=== PATIENT | female | born 1955 | race Caucasian/White ===

== ENCOUNTER 2016-08-02 13:20 | Inpatient (IN) | payer BC, OTHER ==
[~2016-08-02] VITALS: Ht 160 cm; Wt 66.0 kg
[~2016-08-02 13:20] MED LIST: ABL5 PO; BNC5 PO; FAMO20TA12 PO; HPRIS5M SQ; INSDGIPEN SC; LEVO125T72 PO; NRN300 PO; NVLGI/PEN SQ; NVLGIPEN SC; PXL20 PO; RMR15 PO
[2016-08-02] MEDS: INSULIN ASPART 100 UNITS/ML 3 ML PEN SC SCH ×3 (13:30→21:06)
[2016-08-02 13:32] VITALS: BP 134/87; PULSE 110; TEMP 37.3; BMI 25.8
[2016-08-02] MEDS ORDERED: PHARMACY GLYCEMIC MGMT CONSULT PRN (13:42)
[2016-08-02] MEDS ORDERED: SODIUM CHLORIDE 0.65% NA SOLN 45 ML (OCEAN) PRN (13:45)
[2016-08-02] MEDS ORDERED: BISMUTH SUBSALICYLATE PER ML OMNICELL CHARGE PO PRN (13:45)
[2016-08-02] MEDS ORDERED: ALUMINUM/MAGNESIUM SUSP 30 ML UDC PO PRN (13:45)
[2016-08-02] MEDS ORDERED: hydrOXYzine HCL 25 MG TAB PO PRN (13:45)
[2016-08-02] MEDS: GABAPENTIN 300 MG CAP PO SCH ×2 (14:00→21:20)
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
--- NOTE | 2016-08-02 14:21 | Pharmacy Progress Note ---
Glycemic: Assessment & Plan Date of Service Aug 02, 2016. Assessment & Plan Outpatient Anti-diabetic Regimen: * Lantus 45 units SQ Q HS * Novolog 10 units w/ meals * A1c = 8.7 % 07/31/16 (eAG ~203mg/dL) ASSESSMENT: 08/02/16: * Patient received 64 units of insulin yesterday and continues to be somewhat hyperglycemic. * Will increase insulin dose this morning and tighten correctional/prandial parameters. * Patient to be transferred back to [facility] today. * Will continue to follow patient after transfer. 08/01/16: * Patient's BSGs are beginning to improve today, after yesterday's insulin adjustments. Will continue to adjust cautiously until BSGs stable. * Patient's diet continues to be somewhat poor. Diet has been changed from Type 2 diabetic to a Regular diet. This is probably fine while intake is decreased, but may need to be re-addressed if patient begins to eat more and BSGs become difficult to manage. 07/31/16: * Patient's BSGs ranged 207-322 yesterday despite receiving 53 units of SQ insulin * Fasting BSG elevated this AM (FBS 250) w/ 20 units of Lantus on board. Yesterday's FBS was also > 200 on the same Lantus dose. She is currently receiving less than 1/2 her home Lantus dose. Will begin to titrate the Lantus dosage upward at this time, but will not give the full home dosage as her diet is poor and she has required lower doses on prior admissions. Will add a half dose parameter to the Lantus order should BSGs begin to fall. * Last evening the Novolog CF and CR were adjusted to allow for larger doses of each. This is a reasonable change given the BSG pattern observed yesterday ( BSGs jolie after 2 of 3 meals). PLAN FOR INPATIENT GLYCEMIC CONTROL: * Increase Lantus to 20 units SQ BID for now * Give 1/2 dose if BSG less than 110. * Tighten correction factor to 15 mg/dl/unit * Tighten carb ratio to 1 unit per 6 grams CHO consumed * Continue goal range of Low 100 mg/dL - High 140 mg/dL * Please note that the plan above was derived based on current level of insulin resistance and hospital stress. These recommendations are appropriate for inpatient admission only. Plan of care upon discharge will need to be reassessed to avoid potential outpatient hypo/hyperglycemia. Thank you.
[2016-08-02 19:22] VITALS: BP 117/73; PULSE 103
[2016-08-02] MEDS: HEPARIN SOD 5000 UNIT/0.5 ML CARP SQ SCH (21:02)
[2016-08-02] MEDS: FAMOTIDINE 20 MG TAB PO SCH (21:03)
[2016-08-02] MEDS: MIRTAZAPINE TAB 15 MG TAB PO SCH (21:04)
[2016-08-02] MEDS: INSULIN GLARGINE SOLOSTAR 100 UNITS/ML 3 ML PEN SC SCH (21:07)
[2016-08-03 06:36] VITALS: BP 155/95; PULSE 101; TEMP 37
[2016-08-03 07:47] LABS: CHOLESTEROL/HDL RATIO 4.1
[2016-08-03] MEDS: LEVOTHYROXINE 125 MCG TAB PO SCH (07:57)
[2016-08-03] MEDS: HEPARIN SOD 5000 UNIT/0.5 ML CARP SQ SCH ×2 (09:35→21:27)
[2016-08-03] MEDS: ARIPIprazole TAB 5 MG TAB PO SCH (09:37)
[2016-08-03] MEDS: GABAPENTIN 300 MG CAP PO SCH (09:37)
[2016-08-03] MEDS: OLMESARTAN MEDOXOMIL 5 MG TAB PO SCH (09:37)
[2016-08-03] MEDS: FAMOTIDINE 20 MG TAB PO SCH ×2 (09:37→21:31)
[2016-08-03] MEDS: PAROXETINE 20 MG TAB PO SCH (09:37)
[2016-08-03] MEDS: INSULIN ASPART 100 UNITS/ML 3 ML PEN SC SCH ×4 (09:45→21:30)
[2016-08-03] MEDS: INSULIN GLARGINE SOLOSTAR 100 UNITS/ML 3 ML PEN SC SCH (09:46)
[2016-08-03] MEDS: ACETAMINOPHEN 325 MG TAB PO PRN (10:28)
[2016-08-03 10:30] VITALS: BP 121/74; PULSE 108
--- NOTE | 2016-08-03 10:48 | Pharmacy Progress Note ---
Glycemic: Assessment & Plan Date of Service Aug 03, 2016. Assessment & Plan Outpatient Anti-diabetic Regimen: * Lantus 45 units SQ Q HS * Novolog 10 units w/ meals * A1c = 8.7 % 07/31/16 (eAG ~203mg/dL) ASSESSMENT: 08/03/16: * Patient received 68 units of insulin yesterday, with BSGs ranging from 143 - 243 mg/dL. * Lantus dose has been gradually titrated upward and is close to home dose at this point. Will work on getting back to once daily dosing now that patient's condition is more stable. No changes today since changes from yesterday have not been fully seen yet today. 08/02/16 * Patient received 64 units of insulin yesterday and continues to be somewhat hyperglycemic. * Will increase insulin dose this morning and tighten correctional/prandial parameters. * Patient to be transferred back to [facility] today. * Will continue to follow patient after transfer. 08/01/16 * Patient's BSGs are beginning to improve today, after yesterday's insulin adjustments. Will continue to adjust cautiously until BSGs stable. * Patient's diet continues to be somewhat poor. Diet has been changed from Type 2 diabetic to a Regular diet. This is probably fine while intake is decreased, but may need to be re-addressed if patient begins to eat more and BSGs become difficult to manage. 07/31/16 * Patient's BSGs ranged 207-322 yesterday despite receiving 53 units of SQ insulin * Fasting BSG elevated this AM (FBS 250) w/ 20 units of Lantus on board. Yesterday's FBS was also > 200 on the same Lantus dose. She is currently receiving less than 1/2 her home Lantus dose. Will begin to titrate the Lantus dosage upward at this time, but will not give the full home dosage as her diet is poor and she has required lower doses on prior admissions. Will add a half dose parameter to the Lantus order should BSGs begin to fall. * Last evening the Novolog CF and CR were adjusted to allow for larger doses of each. This is a reasonable change given the BSG pattern observed yesterday ( BSGs jolie after 2 of 3 meals). PLAN FOR INPATIENT GLYCEMIC CONTROL: * Lantus to 20 units SQ BID ---> transition to once daily HS dosing * Give Lantus 35 units SQ tonight, then start Lantus 45(?) units SQ HS tomorrow night * Patient has been hyperglycemic today, so anticipate that the additional basal today will be okay * Give 1/2 dose if BSG less than 110 * Novolog, accu-checks ACHS * Correction factor: 15 mg/dl/unit * Carb ratio: 1 unit per 6 grams CHO consumed * Goal range: Low 100 mg/dL - High 140 mg/dL * Please note that the plan above was derived based on current level of insulin resistance and hospital stress. These recommendations are appropriate for inpatient admission only. Plan of care upon discharge will need to be reassessed to avoid potential outpatient hypo/hyperglycemia. Thank you.
--- NOTE | 2016-08-03 10:53 | Psychiatric Progress Notes ---
Progress Note Date of Service Aug 03, 2016. Interval History 61 yo female readmitted to our unit voluntarily. She was initially admitted to the medical floor following an intentional overdose in a suicide attempt, moved to our unit, but moved back to medical with complaints of abd pain and hypotension. Her depression has been persistent since having surgery on her back in the summer, secondary to complications including foot drop, ongoing lower extremity pain and impaired mobility. Chief Complaint "I've failed.". Subjective Patient was seen & assessed interval progress reviewed with Treatment Team. The patient is very tearful today, feeling that she is a failure because she ended up on the mental health unit again. She continues to have severe pain in her left lower extremity, feeling that if this does not improve, then she has no reason to live. The impairment to her life is severe, she feels that she no longer has the support of her daughter and questions how long her boyfriend will remain supportive given her suicide attempt. In talking about her ongoing suicidal thoughts she says "Now I understand how people get to this point.". She is hoping that Dr. Cardoza will be able to help explain her pain and treatment moving forward, hoping there is something to be done to sander her pain. Staff report that she has required the assist of two to transfer, and has complained of dizziness at times limiting her ability to remain out of bed. She was assisted to the shower last evening and was able to bathe herself. Review of Systems Constitutional: + fatigue ENT: No dental problems, No hearing loss, No nasal symptoms, No problem reported, No sore throat, No tinnitus, No trouble swallowing, No unusual epistaxis Respiratory: No cough, No dyspnea at rest, No dyspnea on exertion, No hemoptysis, No problem reported, No shortness of breath, No sputum, No wheezing Cardiovascular: No PND, No chest pain, No claudication, No edema, No orthopnea , No palpitations, No problem reported Abdomen: + problem reported (poor appetite) Musculoskeletal: + problem reported (back and LLE pain and weakness) Neurologic: + problem reported (left foot drop) Psychiatric: + depression symptoms (with ongoing suicidal thoughts) Integumentary: No bleeding, No color change, No itch, No new/changing skin lesions, No problem reported, No rash Sleep Information Total Hours of Sleep: 7.00 Meal Information Percent of Breakfast Consumed: 50 Percent of Dinner Consumed: 30 Mental Status Exam During interview pt is: alert and oriented, cooperative Appearance: appropriately dressed, disheveled Eye contact is: fair Motor behavior is: no abnormal motor movements Speech: other (crying throughout the interview) Affect: tearful Mood is: depressed Thought process: goal directed Thought content: reality based without delusions Suicidal thought are: present Homicidal thoughts are: denied Hallucinations: denies auditory, denies visual Cognition: memory grossly intact, attention grossly intact Intelligence estimated to be: average Insight: impaired Judgement: impaired Impression Codi remains severely depressed with suicidal thinking. Pain and motor dysfunction remain central to her depression. Had and MRI of her back and consult with Dr. Cardoza while on the medical floor with no acute finding to account for her clinical presentation. Will discuss with neurology for their input re: possible EMG or other intervention. Today we will increase neurontin to 400 mg. TID to target neuropathic pain and continue other meds. Continued Inpatient Care The patient requires inpatient care due to the severity of her condition and the risk for another suicide attempt if discharged. Plan (1) Suicide attempt suicide checks for safety participate in groups and unit programming work on health coping skills and safety plan family meeting (2) Major depressive disorder, recurrent episode, severe with anxious distress - Retitrating Paxil (at 40mg since 07/31) and reintroducing Abilify (5mg daily) that seemed to work well as augmenting agent last hospitalization. Targets obsessive thinking and Abilify likely better from a glucose control standpoint. - She is very verbal re: her suicidal ideation and very aware of her needs re : medical assists, unable to tolerate roommate--[facility] given severity of SI and medical needs. - Encourage patient to be out of bed, showering and dressing daily, and attending groups. - Fasting labs ordered for tomorrow for monitoring on an atypical antipsychotic. (3) Intractable low back pain Pain management saw her 07/27, and stated she is is not a candidate for interventional procedures, deferred repeat lumbar spine imaging to Dr. Cardoza, and recommended initiation of gabapentin 300 mg at bedtime progressing to t.i.d. over the next 3 days in an attempt to diminish neuropathic pain complaints. Did not recommend utilization of opiate therapy in this patient as she has significant risk of opioid misuse/abuse with recent history of intentional overdose of meloxicam as well as her comorbid medical conditions. Consider evaluation for her candidacy for inpatient rehabilitative process upon discharge should be considered. 08/03 - Will consult with Dr. Cardoza and Dr. Briggs re: ongoing pain and weakness/ foot drop (4) Lower extremity weakness 08/02 - PT consult and treat, likely to require inpatient rehab - Dr. Cardoza of orthopedics saw her today, appreciate recommendations - consider neurology consult for b/l EMG with nerve conduction study. Lumbar spine MRI today showed postsurgical changes at the L4-5 and L5-S1 levels, soft tissue surrounding the thecal sac and left L5 nerve root at the L4-5 level, and mild L5 nerve root edema. While nonspecific, the soft tissue likely represents postsurgical epidural fibrosis. (5) Diabetes - Check glucose ACHS with insulin and sliding scale - Consult diabetic pharmacist for glucose control - Diabetic diet Discharge / Aftercare Planning Primary Care Physician: Name: Dr Kerr Psychiatrist: Name: Dr Rios Therapist: Name: Katiuska Heller Visit Code E&M Code: 97291 Inventory Assets Strengths: responsible for children, supportive family Risk Factors Assessment : Yes /single/: No Higher / Fall in social status: No Health problems: Yes Mental Health Diagnoses: Yes Substance use disorders: No Previous attempt: No Family history of suicide: No Previous psychiatric stay: Yes Hopelessness: Yes Protective Factors Assessment : Yes Responsible for young children: Yes Data Vital Signs Last 24 Hrs: Date Time Temp Pulse Resp B/P Pulse Ox O2 Delivery O2 Flow Rate FiO2 08/03/16 06:36 37.0 101 16 155/95 08/02/16 19:22 103 16 117/73 08/02/16 13:32 37.3 110 16 134/87 Meds Administered Last 24 Hrs: Meds Administered (Past 24Hrs) Medications (Trade) Dose Ordered Sig/Trevon Route Start Time Stop Time Status Last Admin Dose Admin Aripiprazole (Abilify Tab) 5 mg QAM PO 08/03/16 09:00 09/02/16 08:59 08/03/16 09:37 5 MG Famotidine (Pepcid Tab) 20 mg BID PO 08/02/16 22:00 09/01/16 21:59 08/03/16 09:37 20 MG Gabapentin (Neurontin Cap) 300 mg TID PO 08/02/16 14:00 09/01/16 13:59 08/03/16 09:37 300 MG Heparin Sodium (Porcine) (Heparin Sq 5000 Unit/0.5ml) 5,000 unit Q12 SQ 08/02/16 21:00 09/01/16 20:59 08/03/16 09:35 5,000 UNIT Insulin Aspart (novoLOG ASPART) ACHS SC 08/02/16 17:15 09/01/16 17:14 08/03/16 09:45 14 UNITS Insulin Glargine (Lantus Solostar Pen) 20 unit BID SC 08/02/16 22:00 09/01/16 21:59 08/03/16 09:46 20 UNIT Levothyroxine Sodium (Synthroid Tab) 125 mcg DAILYBB PO 08/03/16 08:00 09/02/16 07:59 08/03/16 07:57 125 MCG Mirtazapine (Remeron Tab) 30 mg HS PO 08/02/16 22:00 09/01/16 21:59 08/02/16 21:04 30 MG Olmesartan (Benicar) 5 mg DAILY PO 08/03/16 09:00 09/02/16 08:59 08/03/16 09:37 5 MG Paroxetine HCl (pAXil TAB) 40 mg QAM PO 08/03/16 09:00 09/02/16 08:59 08/03/16 09:37 40 MG Lab Results Last 24 Hrs: Last 24 Hours Test 08/02/16 15:51 08/02/16 20:18 08/03/16 07:00 08/03/16 08:00 Bedside Glucose 143 mg/dl 243 mg/dl 189 mg/dl Fasting Glucose 210 mg/dl Triglycerides Level 236 mg/dl Cholesterol Level 239 mg/dl HDL Cholesterol 58 mg/dl LDL Cholesterol, Calculated 134 mg/dl VLDL Cholesterol, Calculated 47 mg/dl Cholesterol/HDL Ratio 4.1
[2016-08-03] MEDS: MAGNESIUM HYDROXIDE SUSP 30 ML UDC PO PRN (12:53)
[2016-08-03] MEDS: GABAPENTIN 400 MG CAP PO SCH ×2 (14:01→21:30)
[2016-08-03] MEDS: hydrOXYzine HCL 25 MG TAB PO PRN (15:17)
[2016-08-03] MEDS ORDERED: INSULIN GLARGINE SOLOSTAR 100 UNITS/ML 3 ML PEN SQ SCH (21:00)
[2016-08-03] MEDS: NAPROXEN 250 MG TAB PO SCH (21:30)
[2016-08-03] MEDS: MIRTAZAPINE TAB 15 MG TAB PO SCH (21:31)
[2016-08-04 06:48] VITALS: BP_SYST 138; BP_SYST 139; BP_DIAS 83; BP_DIAS 85; PULSE 100; PULSE 99; TEMP 36.7
[2016-08-04] MEDS: LEVOTHYROXINE 125 MCG TAB PO SCH (07:40)
[2016-08-04] MEDS: OLMESARTAN MEDOXOMIL 5 MG TAB PO SCH (08:42)
[2016-08-04] MEDS: ARIPIprazole TAB 5 MG TAB PO SCH (08:42)
[2016-08-04] MEDS: GABAPENTIN 400 MG CAP PO SCH ×3 (08:42→20:52)
[2016-08-04] MEDS: NAPROXEN 250 MG TAB PO SCH ×2 (08:42→20:51)
[2016-08-04] MEDS: FAMOTIDINE 20 MG TAB PO SCH ×2 (08:43→20:52)
[2016-08-04] MEDS: PAROXETINE 20 MG TAB PO SCH (08:43)
[2016-08-04] MEDS: INSULIN ASPART 100 UNITS/ML 3 ML PEN SC SCH ×4 (09:34→20:56)
[2016-08-04] MEDS: HEPARIN SOD 5000 UNIT/0.5 ML CARP SQ SCH ×2 (09:35→20:47)
--- NOTE | 2016-08-04 10:17 | Pharmacy Progress Note ---
Glycemic: Assessment & Plan Date of Service Aug 04, 2016. Assessment & Plan Outpatient Anti-diabetic Regimen: * Lantus 45 units SQ Q HS * Novolog 10 units w/ meals * A1c = 8.7 % 07/31/16 (eAG ~203mg/dL) ASSESSMENT: 08/04/16: * Patient received 103 units of insulin yesterday, with BSGs ranging from 159 - 260 mg/dL. * Transition to once-daily HS dosing started last evening. Will continue working toward this today to make it easier for patient to resume home dosing upon discharge. * Patient appears to need additional prandial coverage, so will tighten Novolog parameters. 08/03/16 * Patient received 68 units of insulin yesterday, with BSGs ranging from 143 - 243 mg/dL. * Lantus dose has been gradually titrated upward and is close to home dose at this point. Will work on getting back to once daily dosing now that patient's condition is more stable. No changes today since changes from yesterday have not been fully seen yet today. 08/02/16 * Patient received 64 units of insulin yesterday and continues to be somewhat hyperglycemic. * Will increase insulin dose this morning and tighten correctional/prandial parameters. * Patient to be transferred back to [facility] today. 08/01/16 * Patient's BSGs are beginning to improve today, after yesterday's insulin adjustments. Will continue to adjust cautiously until BSGs stable. * Patient's diet continues to be somewhat poor. PLAN FOR INPATIENT GLYCEMIC CONTROL: * Lantus ---> transition to once daily HS dosing * Lantus 35 units SQ given last evening, then start Lantus 50 units SQ HS tonight * Novolog for correctional/prandial coverage, accu-checks ACHS * Correction factor: 15 mg/dl/unit * Carb ratio: 1 unit per 5 grams CHO consumed * Goal range: Low 100 mg/dL - High 140 mg/dL * Please note that the plan above was derived based on current level of insulin resistance and hospital stress. These recommendations are appropriate for inpatient admission only. Plan of care upon discharge will need to be reassessed to avoid potential outpatient hypo/hyperglycemia. Thank you.
--- NOTE | 2016-08-04 10:23 | Psychiatric Progress Notes ---
Progress Note Date of Service Aug 04, 2016. Interval History 61 yo female readmitted to our unit voluntarily. She was initially admitted to the medical floor following an intentional overdose in a suicide attempt, moved to our unit, but moved back to medical with complaints of abd pain and hypotension. Her depression has been persistent since having surgery on her back in the summer, secondary to complications including foot drop, ongoing lower extremity pain and impaired mobility. Chief Complaint "I still need naps.". Subjective Patient was seen & assessed interval progress reviewed with Treatment Team. The patient is sitting in a WC in the dayroom. I review with her my conversations with Dr. Cardoza (no surgical intervention, suggests neuro eval or pain management), and with Dr. Briggs (don't do EMG's as inpatients, rec strengthening with PT/rehab and willing to see as an OP). Also reviewed her meds, having come off of Paxil and Abilify abruptly after discharge leading to her acute decline (discontinuation syndrome) and progression of depression. The patient is tearful, saying that she knew something wasn't right, that she felt unwell, but felt that no one would listen to her. She is still in pain, feeling unable to walk independently leading to ongoing SI feeling "like I want to take a big bottle of pills". She does feel some hope that there is a plan in place and that she will be cared for until meds can help. She feels hopeless that she can feel better but willing to try. She is worried that staff will expect more of her than she feels capable of doing, but was reassured that we will meet in the middle somewhere. She denies aud/vis hallucinations. Review of Systems Constitutional: + fatigue, + problem reported (weakness, ambulatory dysfunction ) ENT: No dental problems, No hearing loss, No nasal symptoms, No problem reported, No sore throat, No tinnitus, No trouble swallowing, No unusual epistaxis Respiratory: No cough, No dyspnea at rest, No dyspnea on exertion, No hemoptysis, No problem reported, No shortness of breath, No sputum, No wheezing Cardiovascular: No PND, No chest pain, No claudication, No edema, No orthopnea , No palpitations, No problem reported Abdomen: No GI bleeding, No constipation, No diarrhea, No nausea, No pain, No problem reported, No vomiting Musculoskeletal: + problem reported (back and lower extremity pain/weakness, lt foot drop) Neurologic: No balance problems, No memory loss, No numbness/tingling, No paralysis, No problem reported, No vertigo, No weakness Psychiatric: + depression symptoms (with suicidality) Integumentary: + problem reported (dry skin) Sleep Information Total Hours of Sleep: 6.50 Meal Information Percent of Breakfast Consumed: 100 Percent of Dinner Consumed: 90 Mental Status Exam During interview pt is: alert and oriented, cooperative Appearance: appropriately dressed, disheveled Eye contact is: good Motor behavior is: no abnormal motor movements, other (using wheelchair when OOB) Speech: normal in rate, rhythm & volume (tearful), other (crying throughout the interview) Affect: depressed, tearful Mood is: depressed Thought process: goal directed Thought content: reality based without delusions Suicidal thought are: present, Plan: present (OD), Intent: denied Homicidal thoughts are: denied Hallucinations: denies auditory, denies visual Cognition: memory grossly intact, attention grossly intact Intelligence estimated to be: average Insight: impaired Judgement: impaired Impression Codi remains severely depressed with suicidal thinking. Pain and motor dysfunction remain central to her depression. Collaborated with Dr. Cardoza and Dr. Briggs to review her case. Dr. Cardoza agrees that her condition has worsened , but surgery indicated and suggests that a neuro or pain management consult may be appropriate. I reviewed the case with Dr. Briggs who agrees to see her if needed, but notes that EMG's are an OP procedure, and that in the absence of acute issues, the most gain is likely in PT/rehab for strengthening. I have reviewed this with the patient. PT has seen her and will see her daily, and have recommended we consider referral to rehab post discharge. She remains suicidal, but more hopeful now that she is back on meds. Paxil recently increased to 40 mg. and Abilify is at 5 mg. daily. She is still on heparin for DVT prophylaxis since she is not walking, but would like for her to progress toward walking with use of walker with PT assist. Will consider increase in paxil to 50 mg. over next few days. Continued Inpatient Care The patient requires inpatient care due to the severity of her condition and the risk for another suicide attempt if discharged. Plan (1) Suicide attempt suicide checks for safety participate in groups and unit programming work on health coping skills and safety plan family meeting (2) Major depressive disorder, recurrent episode, severe with anxious distress - Retitrating Paxil (at 40mg since 07/31) and reintroducing Abilify (5mg daily) that seemed to work well as augmenting agent last hospitalization. Targets obsessive thinking and Abilify likely better from a glucose control standpoint. - She is very verbal re: her suicidal ideation and very aware of her needs re : medical assists, unable to tolerate roommate--[facility] given severity of SI and medical needs. - Encourage patient to be out of bed, showering and dressing daily, and attending groups. - Fasting labs ordered for tomorrow for monitoring on an atypical antipsychotic. 07/25 -continue current meds. Consider increase in paxil to 50 mg. as needed (3) Intractable low back pain Pain management saw her 07/27, and stated she is is not a candidate for interventional procedures, deferred repeat lumbar spine imaging to Dr. Cardoza, and recommended initiation of gabapentin 300 mg at bedtime progressing to t.i.d. over the next 3 days in an attempt to diminish neuropathic pain complaints. Did not recommend utilization of opiate therapy in this patient as she has significant risk of opioid misuse/abuse with recent history of intentional overdose of meloxicam as well as her comorbid medical conditions. Consider evaluation for her candidacy for inpatient rehabilitative process upon discharge should be considered. 08/03 - Will consult with Dr. Cardoza and Dr. Briggs re: ongoing pain and weakness/ foot drop - Increase neurontin to 400 mg. TID 08/04 - Collaborated with Dr. Cardoza and Dr. Briggs. Will proceed with active PT and consider rehab post discharge. - No evidence for autonomic dysregulation or evidence of Guillam [place] - Encourage progressive increase to activity - PT will see daily (4) Lower extremity weakness 08/02 - PT consult and treat, likely to require inpatient rehab - Dr. Cardoza of orthopedics saw her today, appreciate recommendations - consider neurology consult for b/l EMG with nerve conduction study. Lumbar spine MRI today showed postsurgical changes at the L4-5 and L5-S1 levels, soft tissue surrounding the thecal sac and left L5 nerve root at the L4-5 level, and mild L5 nerve root edema. While nonspecific, the soft tissue likely represents postsurgical epidural fibrosis. (5) Diabetes - Check glucose ACHS with insulin and sliding scale - Consult diabetic pharmacist for glucose control - Diabetic diet Discharge / Aftercare Planning Primary Care Physician: Name: Dr Kerr Psychiatrist: Name: Dr Rios Therapist: Name: Katiuska Heller Visit Code E&M Code: 74457 Inventory Assets Strengths: supportive family, willingness to engage in treatment Risk Factors Assessment : Yes /single/: No Higher / Fall in social status: No Health problems: Yes Mental Health Diagnoses: Yes Substance use disorders: No Previous attempt: No Family history of suicide: No Previous psychiatric stay: Yes Hopelessness: Yes Protective Factors Assessment : Yes Responsible for young children: No Employed: No Stable relationships: Yes Supportive family: Yes Data Vital Signs Last 24 Hrs: Date Time Temp Pulse Resp B/P Pulse Ox O2 Delivery O2 Flow Rate FiO2 08/04/16 06:48 36.7 99 18 138/85 100 139/83 08/03/16 10:30 108 121/74 Meds Administered Last 24 Hrs: Meds Administered (Past 24Hrs) Medications (Trade) Dose Ordered Sig/Trevon Route Start Time Stop Time Status Last Admin Dose Admin Acetaminophen (Tylenol Tab) 650 mg Q4H PRN PO 08/02/16 13:45 09/01/16 13:44 08/03/16 10:28 650 MG Magnesium Hydroxide (Milk Of Magnesia Susp) 30 ml DAILY PRN PO 08/02/16 13:45 09/01/16 13:44 08/03/16 12:53 30 ML Hydroxyzine HCl (Vistaril Tab) 25 mg Q4H PRN PO 08/02/16 13:45 09/01/16 13:44 08/03/16 15:17 25 MG Aripiprazole (Abilify Tab) 5 mg QAM PO 08/03/16 09:00 09/02/16 08:59 08/04/16 08:42 5 MG Famotidine (Pepcid Tab) 20 mg BID PO 08/02/16 22:00 09/01/16 21:59 08/04/16 08:43 20 MG Gabapentin (Neurontin Cap) 300 mg TID PO 08/02/16 14:00 08/03/16 11:39 DC 08/03/16 09:37 300 MG Heparin Sodium (Porcine) (Heparin Sq 5000 Unit/0.5ml) 5,000 unit Q12 SQ 08/02/16 21:00 09/01/16 20:59 08/04/16 09:35 5,000 UNIT Insulin Aspart (novoLOG ASPART) ACHS SC 08/02/16 17:15 09/01/16 17:14 08/04/16 09:34 14 UNITS Insulin Glargine (Lantus Solostar Pen) 20 unit BID SC 08/02/16 22:00 08/03/16 13:20 DC 08/03/16 09:46 20 UNIT Levothyroxine Sodium (Synthroid Tab) 125 mcg DAILYBB PO 08/03/16 08:00 09/02/16 07:59 08/04/16 07:40 125 MCG Mirtazapine (Remeron Tab) 30 mg HS PO 08/02/16 22:00 09/01/16 21:59 08/03/16 21:31 30 MG Olmesartan (Benicar) 5 mg DAILY PO 08/03/16 09:00 09/02/16 08:59 08/04/16 08:42 5 MG Paroxetine HCl (pAXil TAB) 40 mg QAM PO 08/03/16 09:00 09/02/16 08:59 08/04/16 08:43 40 MG Gabapentin (Neurontin Cap) 400 mg TID PO 08/03/16 14:00 09/02/16 13:59 08/04/16 08:42 400 MG Naproxen (Naprosyn Tab) 250 mg BID PO 08/03/16 22:00 08/08/16 10:00 08/04/16 08:42 250 MG Insulin Glargine (Lantus Solostar Pen) 35 unit TODAY@2100 SQ 08/03/16 21:00 08/03/16 21:01 DC 08/03/16 21:28 35 UNIT Lab Results Last 24 Hrs: Last 24 Hours Test 08/03/16 12:24 08/03/16 15:59 08/03/16 20:10 Bedside Glucose 260 mg/dl 159 mg/dl 237 mg/dl
[2016-08-04] MEDS: MAGNESIUM HYDROXIDE SUSP 30 ML UDC PO PRN (16:51)
[2016-08-04 18:58] LABS: URINE APPEARANCE TURBID (CLEAR); URINE BILIRUBIN NEG (NEG); URINE COLOR DK YELLOW; URINE EPITHELIAL CELL AUTO >30 /lpf (0-5); URINE NITRITE NEG (NEG); URINE PH 5.5 (4.5-7.5); URINE SPECIFIC GRAVITY 1.039 (1.000-1.030); UROBILINOGEN NEG (NEG); ZZUR CULT IF INDIC CLEAN CATCH NO
[2016-08-04 19:03] LABS: MANUAL MICROSCOPIC REQUIRED? NO; REVIEW REQ? YES
[2016-08-04 19:14] LABS: URINE PATH CASTS 0-3 GRANULAR CASTS /lpf (0)
[2016-08-04] MEDS: MIRTAZAPINE TAB 15 MG TAB PO SCH (20:52)
[2016-08-04] MEDS: INSULIN GLARGINE SOLOSTAR 100 UNITS/ML 3 ML PEN SC SCH (20:54)
[2016-08-05] MEDS: ACETAMINOPHEN 325 MG TAB PO PRN (04:44)
[2016-08-05 06:54] VITALS: BP 119/79; PULSE 86; TEMP 36.4
[2016-08-05] MEDS: OLMESARTAN MEDOXOMIL 5 MG TAB PO SCH (09:41)
[2016-08-05] MEDS: LEVOTHYROXINE 125 MCG TAB PO SCH (09:41)
[2016-08-05] MEDS: ARIPIprazole TAB 5 MG TAB PO SCH (09:41)
[2016-08-05] MEDS: GABAPENTIN 400 MG CAP PO SCH ×3 (09:42→21:41)
[2016-08-05] MEDS: PAROXETINE 20 MG TAB PO SCH (09:42)
[2016-08-05] MEDS: NAPROXEN 250 MG TAB PO SCH ×2 (09:42→21:41)
[2016-08-05] MEDS: FAMOTIDINE 20 MG TAB PO SCH ×2 (09:43→21:42)
[2016-08-05] MEDS: INSULIN ASPART 100 UNITS/ML 3 ML PEN SC SCH ×4 (09:48→21:44)
[2016-08-05] MEDS: HEPARIN SOD 5000 UNIT/0.5 ML CARP SQ SCH ×2 (09:51→21:57)
--- NOTE | 2016-08-05 10:47 | Psychiatric Progress Notes ---
Progress Note Date of Service Aug 05, 2016. Interval History 61 yo female initially admitted to the medical floor on 07/26/16 following an intentional overdose in a suicide attempt, moved to our unit on 07/29/16 On 07/31/16 she was moved moved back to medical with complaints of abd pain and hypotension. She was readmitted to [facility] on 08/02/16 Her depression has been persistent since having surgery on her back in the summer, secondary to complications including foot drop, ongoing lower extremity pain and impaired mobility. Chief Complaint "I am so very depressed". Subjective Patient was seen & assessed interval progress reviewed with Nursing staff and review of her record. She is reported as struggling with her physical limitations and amotivation and hopelessness of depression. She was out of her room yesterday having a positive visit with her daughters. She is visited in her room today she is laying in her bed. She is alert and conversational but labile to tears. She notes she is afraid of not being able to walk again. SHe had one PT visit and is not certain she will be seen by PT over the holiday weekend. She states she is tired and is uncertain if it is her medications or her depression or both. SHe states she is eating and taking her medication and denies other obvious SE when given a common list of SE. She states she is depressed and hopeless. SHe ruminates about not getting better mentally or physically and not being accepted for rehab so that she could physically progress once discharged. She is difficult to re-direct as she continues to sob. When asked she states she was raised [employer] but does not actively practice as an adult "but I should." Encouraged her that she has the right to decide this for herself attempting to absolve her of some guilt. 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 SHe cannot contract for safety deying intention or plan today but stating "I could not even take pills right [to ]" and expressing her uncertainty how she would live, reasons for living or how to combat suicidal thinking. Review of Systems Other than psychiatric sx listed above and tiredness she denies physical concerns. She does have ongoing physical limitations. Sleep Information Total Hours of Sleep: 7.50 Meal Information Percent of Breakfast Consumed: 100 Percent of Dinner Consumed: 100 Mental Status Exam During interview pt is: alert and oriented, cooperative Appearance: disheveled (laying in bed, hair seems either wet or greesy, she is in hospital gown) Eye contact is: fair (she closes eyes while sobbing) Motor behavior is: no abnormal motor movements, other (ambulation no appreciated as she lays in bed) Speech: normal in rate, rhythm & volume (tearful), other (crying throughout the interview) Affect: depressed, tearful Mood is: depressed Thought process: goal directed Thought content: reality based without delusions (ruminations of guilt) Suicidal thought are: present, Plan: present (OD but doubting her own ability to be successful), Intent: denied Homicidal thoughts are: denied Hallucinations: denies auditory, denies visual Cognition: memory grossly intact, attention grossly intact Intelligence estimated to be: average Insight: impaired Judgement: impaired Impression Codi remains severely depressed with suicidal thinking. Pain and motor dysfunction remain central to her depression. Inpatient staff has collaborated with Dr. Cardoza and Dr. Briggs to review her case. Dr. Cardoza agrees that her condition has worsened, but surgery indicated and suggests that a neuro or pain management consult may be appropriate. INpatient staff has reviewed the case with Dr. Briggs who agrees to see her if needed, but notes that EMG's are an OP procedure, and that in the absence of acute issues, the most gain is likely in PT/rehab for strengthening. This has been reviewed by inpatient staff with the patient. PT has seen her and there is discrepant information as it seems she will be seen daily during business days and PT has recommended we consider referral to rehab post discharge. She remains suicidal, and per report from earlier hopeful now that she is back on meds. However this hopefulness was not present today 08/05/16. Paxil on 07/31/16 was increased 40 mg. and Abilify is at 5 mg. daily. She is still on heparin for DVT prophylaxis since she is not walking, but would like for her to progress toward walking with use of walker with PT assist. Will consider increase in paxil to 50 mg 08/05/16 Continued Inpatient Care The patient requires inpatient care due to the severity of her condition and the risk for another suicide attempt if discharged. Plan (1) Suicide attempt suicide checks for safety participate in groups and unit programming work on health coping skills and safety plan family meeting (2) Major depressive disorder, recurrent episode, severe with anxious distress 08/02/16 - Retitrating Paxil (at 40mg since 07/31) and reintroducing Abilify ( 5mg daily) that seemed to work well as augmenting agent last hospitalization. Targets obsessive thinking and Abilify likely better from a glucose control standpoint. - She is very verbal re: her suicidal ideation and very aware of her needs re : medical assists, unable to tolerate roommate--[facility] given severity of SI and medical needs. - Encourage patient to be out of bed, showering and dressing daily, and attending groups. - Fasting labs ordered 08/03/16 for monitoring on an atypical antipsychotic. 08/05/16 -increase paxil to 50mg, and continue abilify 5mg/d and continue plan as above - encouraged her to focus on 3 daily things that she can control: PT exercises BID, eating, and taking her medications - will request visit from at [facility] as per discussion with patient (3) Intractable low back pain Pain management saw her 07/27, and stated she is is not a candidate for interventional procedures, deferred repeat lumbar spine imaging to Dr. Cardoza, and recommended initiation of gabapentin 300 mg at bedtime progressing to t.i.d. over the next 3 days in an attempt to diminish neuropathic pain complaints. Did not recommend utilization of opiate therapy in this patient as she has significant risk of opioid misuse/abuse with recent history of intentional overdose of meloxicam as well as her comorbid medical conditions. Consider evaluation for her candidacy for inpatient rehabilitative process upon discharge should be considered. 08/03 - Will consult with Dr. Cardoza and Dr. Briggs re: ongoing pain and weakness/ foot drop - Increase neurontin to 400 mg. TID 08/04 and continuing - Collaborated with Dr. Cardoza and Dr. Briggs. Will proceed with active PT and consider rehab post discharge. - No evidence for autonomic dysregulation or evidence of Guillam [place] - Encourage progressive increase to activity - PT will see daily (?) (4) Lower extremity weakness 08/02 and continuing - PT consult and treat, likely to require inpatient rehab - Dr. Cardoza of orthopedics saw her today, appreciate recommendations - consider neurology consult for b/l EMG with nerve conduction study. Lumbar spine MRI today showed postsurgical changes at the L4-5 and L5-S1 levels, soft tissue surrounding the thecal sac and left L5 nerve root at the L4-5 level, and mild L5 nerve root edema. While nonspecific, the soft tissue likely represents postsurgical epidural fibrosis. - she remains on Sub Cut heparin (5) Diabetes - Check glucose ACHS with insulin and sliding scale - Consult diabetic pharmacist for glucose control - Diabetic diet Discharge / Aftercare Planning Primary Care Physician: Name: Dr Kerr Psychiatrist: Name: Dr Rios Date of Appointment: Aug 24, 2016 Time of Appointment: 10:00 Therapist: Name: Katiuska Heller Date of Appointment: Aug 22, 2016 Time of Appointment: 10:00 Visit Code E&M Code: 16463 Inventory Assets Strengths: supportive family, willingness to engage in treatment Risk Factors Assessment : Yes /single/: No Higher / Fall in social status: No Health problems: Yes Mental Health Diagnoses: Yes Substance use disorders: No Previous attempt: No Family history of suicide: No Previous psychiatric stay: Yes Hopelessness: Yes Protective Factors Assessment : Yes Responsible for young children: No Employed: No Stable relationships: Yes Supportive family: Yes Data Vital Signs Last 24 Hrs: Date Time Temp Pulse Resp B/P Pulse Ox O2 Delivery O2 Flow Rate FiO2 08/05/16 06:54 36.4 86 16 119/79 Meds Administered Last 24 Hrs: Meds Administered (Past 24Hrs) Medications (Trade) Dose Ordered Sig/Trevon Route Start Time Stop Time Status Last Admin Dose Admin Aripiprazole (Abilify Tab) 5 mg QAM PO 08/03/16 09:00 09/02/16 08:59 08/04/16 08:42 5 MG Olmesartan (Benicar) 5 mg DAILY PO 08/03/16 09:00 09/02/16 08:59 08/04/16 08:42 5 MG Paroxetine HCl (pAXil TAB) 40 mg QAM PO 08/03/16 09:00 09/02/16 08:59 08/04/16 08:43 40 MG Gabapentin (Neurontin Cap) 400 mg TID PO 08/03/16 14:00 09/02/16 13:59 08/04/16 20:52 400 MG Naproxen (Naprosyn Tab) 250 mg BID PO 08/03/16 22:00 08/08/16 10:00 08/04/16 20:51 250 MG Insulin Glargine (Lantus Solostar Pen) 35 unit TODAY@2100 SQ 08/03/16 21:00 08/03/16 21:01 DC 08/03/16 21:28 35 UNIT Insulin Glargine (Lantus Solostar Pen) 50 unit HS SC 08/04/16 22:00 09/03/16 21:59 08/04/16 20:54 50 UNIT Lab Results Last 24 Hrs: Last 24 Hours Test 08/04/16 12:11 08/04/16 16:42 08/04/16 20:36 08/05/16 07:45 Bedside Glucose 267 mg/dl 160 mg/dl 240 mg/dl 181 mg/dl
[2016-08-05] MEDS ORDERED: PAROXETINE 20 MG TAB PO ONE (12:00)
[2016-08-05 21:23] VITALS: BP 90/54; PULSE 96
[2016-08-05] MEDS: MIRTAZAPINE TAB 15 MG TAB PO SCH (21:42)
[2016-08-05] MEDS: INSULIN GLARGINE SOLOSTAR 100 UNITS/ML 3 ML PEN SC SCH (21:47)
[2016-08-05 22:19] VITALS: BP 105/70; PULSE 93
[2016-08-06] MEDS: ACETAMINOPHEN 325 MG TAB PO PRN (05:54)
[2016-08-06 06:53] VITALS: BP_SYST 120; BP_SYST 126; BP_DIAS 80; BP_DIAS 81; PULSE 89; PULSE 99; TEMP 36.4
[2016-08-06 07:39] VITALS: BP 117/79; PULSE 91; TEMP 37
[2016-08-06] MEDS ORDERED: PAROXETINE 20 MG TAB PO SCH (09:00)
[2016-08-06] MEDS: ARIPIprazole TAB 5 MG TAB PO SCH (09:02)
[2016-08-06] MEDS: OLMESARTAN MEDOXOMIL 5 MG TAB PO SCH (09:02)
[2016-08-06] MEDS: LEVOTHYROXINE 125 MCG TAB PO SCH (09:02)
[2016-08-06] MEDS: GABAPENTIN 400 MG CAP PO SCH ×3 (09:03→20:25)
[2016-08-06] MEDS: NAPROXEN 250 MG TAB PO SCH ×2 (09:03→20:25)
[2016-08-06] MEDS: FAMOTIDINE 20 MG TAB PO SCH ×2 (09:05→20:25)
[2016-08-06] MEDS: HEPARIN SOD 5000 UNIT/0.5 ML CARP SQ SCH ×2 (09:11→20:27)
[2016-08-06] MEDS: INSULIN ASPART 100 UNITS/ML 3 ML PEN SC SCH ×4 (09:16→21:27)
--- NOTE | 2016-08-06 09:18 | Pharmacy Progress Note ---
Glycemic: Assessment & Plan Date of Service Aug 06, 2016. Assessment & Plan Item Value Date Time Bedside Glucose 136 mg/dl H 08/06/16 0726 Bedside Glucose 131 mg/dl H 08/06/16 0221 Bedside Glucose 117 mg/dl H 08/05/16 2109 Bedside Glucose 215 mg/dl H 08/05/16 1610 Bedside Glucose 287 mg/dl H 08/05/16 1136 Bedside Glucose 181 mg/dl H 08/05/16 0745 08/03/16: The patient received 103 units of insulin. 08/04/16: The patient received 103 units of insulin. 08/05/16: The patient received 103 units of insulin. * Basal insulin: Lantus 50 units every HS * Correctional Insulin: Novolog Correction per scale ACHS Goal Range: Low 100 mg/dL - High 140 mg/dL Correction Factor: 15 mg/dL/unit * Prandial insulin: Per carb ratio of 1 unit per 5 grams CHO consumed No changes needed to inpatient regimen at this time. Pharmacy will continue to monitor patient daily and write orders per [facility] inpatient glycemic control protocol. Thanks. * Please note that the plan above was derived based on current level of insulin resistance and hospital stress. These recommendations are appropriate for inpatient admission only. Plan of care upon discharge will need to be reassessed to avoid potential outpatient hypo/hyperglycemia.
--- NOTE | 2016-08-06 09:27 | Psychiatric Progress Notes ---
Progress Note Date of Service Aug 06, 2016. Interval History 61 yo female initially admitted to the medical floor on 07/26/16 following an intentional overdose in a suicide attempt, moved to our unit on 07/29/16 On 07/31/16 she was moved moved back to medical with complaints of abd pain and hypotension. She was readmitted to [facility] on 08/02/16 Her depression has been persistent since having surgery on her back in the summer, secondary to complications including foot drop, ongoing lower extremity pain and impaired mobility. Chief Complaint "[]". Subjective Patient was seen & assessed interval progress reviewed with nursing staff and reviewed record. Patient slept 6.75h and she showered with assistance from staff, she slid herself from wheelchair to the shower chair and also from wheelchair to the bed and she seemed to have some brief janessa over that. She remains dysphoric and tearful. However yesterday she was able to ask for help and go to groups. was called today at patient's request. She listens but does not participate in group. She had low BP and dizziness this AM but vitals were WNL and Type II DM BS WNL at 136 (but is used to having high BS). Nursing is encouraging fluids. She is eating 100% of her food. Her BF visited but she fell asleep while he was here so the visit was limited. She was seen in her bed today. She states she is very dizzy and so has remained in bed. SHe is more alert and less tearful when in direct contact with this provider, but states she was weeping this AM and "I am just so sad" rating her mood as a 2/10 (10 best, 0 worst) compared to a 0/10 before she came to the hospital. She questions if the remeron works because she felt so bad through the fall while on it. She is concerned about the dose of paxil at 50mg, and feels more acutely dizzy today than she did yesterday. (felt dizzy prior to her Am dose) SHe states she did try to do her exercises yesterday "they are just so hard" She continues to feel hopeless about walking and that brings a level of despair about life. She denies SI, intent or plan to hurt herself in the hospital but is unable to say how she would remain safe if discharged as she continues to feel so poorly. Review of Systems dizzy, and noted urine remains very strong denying f/c/s, or dysuria, hesitancy or urgency, denies other sx of ROS other than mentioned above eating well Sleep Information Total Hours of Sleep: 6.75 Meal Information Percent of Breakfast Consumed: 100 Percent of Lunch Consumed: 100 Percent of Dinner Consumed: 75 Mental Status Exam During interview pt is: alert and oriented, cooperative Appearance: disheveled (laying in bed, but appears clean today) Eye contact is: good Motor behavior is: no abnormal motor movements Speech: normal in rate, rhythm & volume (tearful) Affect: depressed Mood is: depressed Thought process: goal directed Thought content: reality based without delusions (ruminations of guilt) Suicidal thought are: present, Plan: present (OD but doubting her own ability to be successful), Intent: denied Homicidal thoughts are: denied Hallucinations: denies auditory, denies visual Cognition: memory grossly intact, attention grossly intact Intelligence estimated to be: average Insight: impaired Judgement: impaired Impression Codi remains severely depressed with suicidal thinking. Pain and motor dysfunction remain central to her depression. Inpatient staff has collaborated with Dr. Cardoza and Dr. Briggs to review her case. Dr. Cardoza agrees that her condition has worsened, but surgery indicated and suggests that a neuro or pain management consult may be appropriate. INpatient staff has reviewed the case with Dr. Briggs who agrees to see her if needed, but notes that EMG's are an OP procedure, and that in the absence of acute issues, the most gain is likely in PT/rehab for strengthening. This has been reviewed by inpatient staff with the patient. PT has seen her and there is discrepant information as it seems she will be seen daily during business days and PT has recommended we consider referral to rehab post discharge. She remains suicidal, and per report from earlier hopeful now that she is back on meds. However this hopefulness was not present today 08/05/16. Paxil on 07/31/16 was increased 40 mg. and Abilify is at 5 mg. daily. She is still on heparin for DVT prophylaxis since she is not walking, but would like for her to progress toward walking with use of walker with PT assist. Continued Inpatient Care The patient requires inpatient care due to the severity of her condition and the risk for another suicide attempt if discharged. Plan (1) Suicide attempt suicide checks for safety participate in groups and unit programming work on health coping skills and safety plan family meeting (2) Major depressive disorder, recurrent episode, severe with anxious distress 08/02/16 - Retitrating Paxil (at 40mg since 07/31) and reintroducing Abilify ( 5mg daily) that seemed to work well as augmenting agent last hospitalization. Targets obsessive thinking and Abilify likely better from a glucose control standpoint. - She is very verbal re: her suicidal ideation and very aware of her needs re : medical assists, unable to tolerate roommate--[facility] given severity of SI and medical needs. - Encourage patient to be out of bed, showering and dressing daily, and attending groups. - Fasting labs ordered 08/03/16 for monitoring on an atypical antipsychotic. 08/05/16 -increase paxil to 50mg, and continue abilify 5mg/d and continue plan as above - encouraged her to focus on 3 daily things that she can control: PT exercises BID, eating, and taking her medications - will request visit from at [facility] as per discussion with patient 08/06/16 -She seems dizzy on increased paxil, which may also be amplification of her abilify or her remeron, will return paxil 40mg at patient's request and monitor - if dizziness persists consider reduction of remeron (limited efficacy as outpatient and goal to reduce polypharmacy) - continue abilify 5mg (amplified in vivo by paxil) encouraged her to get out of bed daily and attend groups to reduce amount of time ruminating in her mind (3) Intractable low back pain Pain management saw her 07/27, and stated she is is not a candidate for interventional procedures, deferred repeat lumbar spine imaging to Dr. Cardoza, and recommended initiation of gabapentin 300 mg at bedtime progressing to t.i.d. over the next 3 days in an attempt to diminish neuropathic pain complaints. Did not recommend utilization of opiate therapy in this patient as she has significant risk of opioid misuse/abuse with recent history of intentional overdose of meloxicam as well as her comorbid medical conditions. Consider evaluation for her candidacy for inpatient rehabilitative process upon discharge should be considered. 08/03 - Will consult with Dr. Cardoza and Dr. Briggs re: ongoing pain and weakness/ foot drop - Increase neurontin to 400 mg. TID 08/04 and continuing - Collaborated with Dr. Cardoza and Dr. Briggs. Will proceed with active PT and consider rehab post discharge. - No evidence for autonomic dysregulation or evidence of Guillam [place] - Encourage progressive increase to activity - PT will see daily (week?) (4) Lower extremity weakness 08/02 and continuing - PT consult and treat, likely to require inpatient rehab - Dr. Cardoza of orthopedics saw her today, appreciate recommendations - consider neurology consult for b/l EMG with nerve conduction study. Lumbar spine MRI today showed postsurgical changes at the L4-5 and L5-S1 levels, soft tissue surrounding the thecal sac and left L5 nerve root at the L4-5 level, and mild L5 nerve root edema. While nonspecific, the soft tissue likely represents postsurgical epidural fibrosis. - she remains on Sub Cut heparin (5) Diabetes - Check glucose ACHS with insulin and sliding scale - Consult diabetic pharmacist for glucose control - Diabetic diet Discharge / Aftercare Planning Primary Care Physician: Name: Dr Kerr Psychiatrist: Name: Dr Rios Date of Appointment: Aug 24, 2016 Time of Appointment: 10:00 Therapist: Name: Katiuska Heller Date of Appointment: Aug 22, 2016 Time of Appointment: 10:00 Visit Code E&M Code: 10080 Inventory Assets Strengths: supportive family, willingness to engage in treatment Risk Factors Assessment : Yes /single/: No Higher / Fall in social status: No Health problems: Yes Mental Health Diagnoses: Yes Substance use disorders: No Previous attempt: No Family history of suicide: No Previous psychiatric stay: Yes Hopelessness: Yes Protective Factors Assessment : Yes Responsible for young children: No Employed: No Stable relationships: Yes Supportive family: Yes Data Vital Signs Last 24 Hrs: Date Time Temp Pulse Resp B/P Pulse Ox O2 Delivery O2 Flow Rate FiO2 08/06/16 07:39 37.0 91 16 117/79 08/06/16 06:53 36.4 89 16 126/80 99 120/81 08/05/16 22:19 93 20 105/70 08/05/16 21:23 96 16 90/54 Meds Administered Last 24 Hrs: Meds Administered (Past 24Hrs) Medications (Trade) Dose Ordered Sig/Trevon Route Start Time Stop Time Status Last Admin Dose Admin Insulin Glargine (Lantus Solostar Pen) 50 unit HS SC 08/04/16 22:00 09/03/16 21:59 08/05/16 21:47 50 UNIT Paroxetine HCl (pAXil TAB) 10 mg 1200 ONCE PO 08/05/16 12:00 08/05/16 12:01 DC 08/05/16 13:22 10 MG Lab Results Last 24 Hrs: Last 24 Hours Test 08/05/16 11:36 08/05/16 16:10 08/05/16 21:09 08/06/16 02:21 Bedside Glucose 287 mg/dl 215 mg/dl 117 mg/dl 131 mg/dl Test 08/06/16 07:26 Bedside Glucose 136 mg/dl
[2016-08-06] MEDS: INSULIN GLARGINE SOLOSTAR 100 UNITS/ML 3 ML PEN SC SCH (20:21)
[2016-08-06] MEDS: MIRTAZAPINE TAB 15 MG TAB PO SCH (20:25)
[2016-08-07 05:35] VITALS: BMI 25.8
[2016-08-07 07:01] VITALS: BP 143/86; PULSE 91; TEMP 36.6
[2016-08-07] MEDS: LEVOTHYROXINE 125 MCG TAB PO SCH (07:59)
[2016-08-07] MEDS: INSULIN ASPART 100 UNITS/ML 3 ML PEN SC SCH ×4 (08:00→20:43)
[2016-08-07] MEDS: OLMESARTAN MEDOXOMIL 5 MG TAB PO SCH (09:17)
[2016-08-07] MEDS: ARIPIprazole TAB 5 MG TAB PO SCH (09:17)
[2016-08-07] MEDS: FAMOTIDINE 20 MG TAB PO SCH ×2 (09:18→20:38)
[2016-08-07] MEDS: NAPROXEN 250 MG TAB PO SCH ×2 (09:18→20:37)
[2016-08-07] MEDS: GABAPENTIN 400 MG CAP PO SCH ×3 (09:18→20:38)
[2016-08-07] MEDS: PAROXETINE 20 MG TAB PO SCH (09:18)
[2016-08-07] MEDS: HEPARIN SOD 5000 UNIT/0.5 ML CARP SQ SCH ×2 (09:25→20:43)
--- NOTE | 2016-08-07 11:16 | Psychiatric Progress Notes ---
Progress Note Date of Service Aug 07, 2016. Interval History 61 yo female initially admitted to the medical floor on 07/26/16 following an intentional overdose in a suicide attempt, moved to our unit on 07/29/16 On 07/31/16 she was moved moved back to medical with complaints of abd pain and hypotension. She was readmitted to [facility] on 08/02/16 Her depression has been persistent since having surgery on her back in the summer, secondary to complications including foot drop, ongoing lower extremity pain and impaired mobility. Chief Complaint "Oh, I don't know. ". Subjective Patient was seen & assessed interval progress reviewed with Treatment Team. The patient continues to feel depressed and worried about the need to return to rehab. She remembers that she had a "rough time there" and is worried that she will not be allowed to return. We reviewed the records together, but found no documentation that she would not be allowed back. She says that suicide "is still in my head", in terms of wishing she had succeeded, but saying that she has some renewed hope that things can be better. She feels like she needs to be more assertive on her own behalf with her care providers, as she feels that she wasn't being heard by them before. She says that she is now transferring from one surface to another with better ease, and would like to try to stand with her walker with help. She continues to report pain in her back and lower extremities, but no worse than previous days. She continues to feel tired, but is able to be out of bed for longer periods in her wheelchair. She questions whether the Remeron is effective since she has been on it for months "and I'm not happier". She reports that her appetite is good however. Review of Systems Constitutional: + fatigue, + problem reported (BLE weakness and pain, requiring WC when OOB) ENT: No dental problems, No hearing loss, No nasal symptoms, No problem reported, No sore throat, No tinnitus, No trouble swallowing, No unusual epistaxis Respiratory: No cough, No dyspnea at rest, No dyspnea on exertion, No hemoptysis, No problem reported, No shortness of breath, No sputum, No wheezing Cardiovascular: No PND, No chest pain, No claudication, No edema, No orthopnea , No palpitations, No problem reported Abdomen: No GI bleeding, No constipation, No diarrhea, No nausea, No pain, No problem reported, No vomiting Musculoskeletal: + problem reported (back and BLE pain) Neurologic: + problem reported (lower extremity wasting) Psychiatric: + anxiety, + depression symptoms Sleep Information Total Hours of Sleep: 8.25 Meal Information Percent of Breakfast Consumed: 90 Percent of Lunch Consumed: 90 Percent of Dinner Consumed: 90 Mental Status Exam During interview pt is: alert and oriented, cooperative Appearance: appropriately dressed, disheveled Eye contact is: good Motor behavior is: no abnormal motor movements, other (using WC) Speech: normal in rate, rhythm & volume (tearful) Affect: depressed, tearful Mood is: depressed Thought process: goal directed Thought content: reality based without delusions (ruminations of guilt) Suicidal thought are: present, Plan: denied, Intent: denied Homicidal thoughts are: denied Hallucinations: denies auditory, denies visual Cognition: memory grossly intact, attention grossly intact Intelligence estimated to be: average Insight: impaired Judgement: impaired Impression Codi remains depressed, tearful, with passive SI. Pain and impaired mobility are her focus, but is seeing some improvement as she is now able to transfer herself and would like to try to stand with a walker. Will ask PT to resume daily PT visits, as we prepare to refer to [facility]. Is back on Paxil and Abilify, but was c/o sedation on 50 mg. Paxil, so it was backed down to 40 mg. It will take additional time for meds to help her mood, but may be seeing some improvement to her hopelessness over the last several days. Will continue current meds and plan. Continued Inpatient Care The patient requires inpatient care due to the severity of her condition and the risk for another suicide attempt if discharged. Plan (1) Suicide attempt suicide checks for safety participate in groups and unit programming work on health coping skills and safety plan family meeting (2) Major depressive disorder, recurrent episode, severe with anxious distress 08/02/16 - Retitrating Paxil (at 40mg since 07/31) and reintroducing Abilify ( 5mg daily) that seemed to work well as augmenting agent last hospitalization. Targets obsessive thinking and Abilify likely better from a glucose control standpoint. - She is very verbal re: her suicidal ideation and very aware of her needs re : medical assists, unable to tolerate roommate--[facility] given severity of SI and medical needs. - Encourage patient to be out of bed, showering and dressing daily, and attending groups. - Fasting labs ordered 08/03/16 for monitoring on an atypical antipsychotic. 08/05/16 -increase paxil to 50mg, and continue abilify 5mg/d and continue plan as above - encouraged her to focus on 3 daily things that she can control: PT exercises BID, eating, and taking her medications - will request visit from at [facility] as per discussion with patient 08/06/16 -She seems dizzy on increased paxil, which may also be amplification of her abilify or her remeron, will return paxil 40mg at patient's request and monitor - if dizziness persists consider reduction of remeron (limited efficacy as outpatient and goal to reduce polypharmacy) - continue abilify 5mg (amplified in vivo by paxil) encouraged her to get out of bed daily and attend groups to reduce amount of time ruminating in her mind 08/07/16 - Continue current meds. Consider taper of Remeron is sedation, fatigue, hypotensive (3) Intractable low back pain Pain management saw her 07/27, and stated she is is not a candidate for interventional procedures, deferred repeat lumbar spine imaging to Dr. Cardoza, and recommended initiation of gabapentin 300 mg at bedtime progressing to t.i.d. over the next 3 days in an attempt to diminish neuropathic pain complaints. Did not recommend utilization of opiate therapy in this patient as she has significant risk of opioid misuse/abuse with recent history of intentional overdose of meloxicam as well as her comorbid medical conditions. Consider evaluation for her candidacy for inpatient rehabilitative process upon discharge should be considered. 08/03 - Will consult with Dr. Cardoza and Dr. Briggs re: ongoing pain and weakness/ foot drop - Increase neurontin to 400 mg. TID 08/04 and continuing - Collaborated with Dr. Cardoza and Dr. Briggs. Will proceed with active PT and consider rehab post discharge. - No evidence for autonomic dysregulation or evidence of Guillam [place] - Encourage progressive increase to activity - PT will see daily (week?) 08/07/16 - Ask PT to renew daily visits in preparation for referral to [facility] (4) Lower extremity weakness 08/02 and continuing - PT consult and treat, likely to require inpatient rehab - Dr. Cardoza of orthopedics saw her today, appreciate recommendations - consider neurology consult for b/l EMG with nerve conduction study. Lumbar spine MRI today showed postsurgical changes at the L4-5 and L5-S1 levels, soft tissue surrounding the thecal sac and left L5 nerve root at the L4-5 level, and mild L5 nerve root edema. While nonspecific, the soft tissue likely represents postsurgical epidural fibrosis. - she remains on Sub Cut heparin (5) Diabetes - Check glucose ACHS with insulin and sliding scale - Consult diabetic pharmacist for glucose control - Diabetic diet Discharge / Aftercare Planning Primary Care Physician: Name: Dr Kerr Psychiatrist: Name: Dr Rios Date of Appointment: Aug 24, 2016 Time of Appointment: 10:00 Therapist: Name: Katiuska Heller Date of Appointment: Aug 22, 2016 Time of Appointment: 10:00 Visit Code E&M Code: 06905 Inventory Assets Strengths: supportive family, willingness to engage in treatment Risk Factors Assessment : Yes /single/: No Higher / Fall in social status: No Health problems: Yes Mental Health Diagnoses: Yes Substance use disorders: No Previous attempt: No Family history of suicide: No Previous psychiatric stay: Yes Hopelessness: Yes Protective Factors Assessment : Yes Responsible for young children: No Employed: No Stable relationships: Yes Supportive family: Yes Data Vital Signs Last 24 Hrs: Date Time Temp Pulse Resp B/P Pulse Ox O2 Delivery O2 Flow Rate FiO2 08/07/16 07:01 36.6 91 14 143/86 Meds Administered Last 24 Hrs: Meds Administered (Past 24Hrs) Medications (Trade) Dose Ordered Sig/Trevon Route Start Time Stop Time Status Last Admin Dose Admin Paroxetine HCl (pAXil TAB) 50 mg QAM PO 08/06/16 09:00 08/06/16 13:24 DC 08/06/16 09:04 50 MG Paroxetine HCl (pAXil TAB) 10 mg 1200 ONCE PO 08/05/16 12:00 08/05/16 12:01 DC 08/05/16 13:22 10 MG Paroxetine HCl (pAXil TAB) 40 mg QAM PO 08/07/16 09:00 09/06/16 08:59 08/07/16 09:18 40 MG Insulin Glargine (Lantus Solostar Pen) 50 unit DAILY@1999 [place] 08/06/16 20:00 09/05/16 19:59 08/06/16 20:21 50 UNIT Lab Results Last 24 Hrs: Last 24 Hours Test 08/06/16 11:34 08/06/16 17:12 08/06/16 20:06 08/06/16 21:20 Bedside Glucose 226 mg/dl 180 mg/dl 411 mg/dl 344 mg/dl Test 08/07/16 08:02 Bedside Glucose 140 mg/dl
--- NOTE | 2016-08-07 14:25 | Pharmacy Progress Note ---
Glycemic: Assessment & Plan Date of Service Aug 07, 2016. Assessment & Plan * The patient is currently receiving consistently 103-104 units of insulin per day. * BSGs ranging 140 - 411 mg/dl over the past 24hrs. Uncertain why severely elevated outliers are occurring. * Basal vs prandial needs appear evenly distributed. Will tighten Novolog parameters as BSGs tend to rise through the day leading to elevated HS BSGs. Hyperglycemia then resolves overnight in the absence of food and the addition of correctional Novolog at bedtime. PLAN FOR INPATIENT GLYCEMIC CONTROL: * Basal insulin: Continue - Lantus 50 units qHS * Correctional Insulin: Novolog Correction per scale ACHS Goal Range: Low 100 mg/dL - High 140 mg/dL Tighten - Correction Factor: 12 mg/dL/unit * Prandial insulin: Tighten - Per carb ratio of 1 unit per 4 grams CHO consumed Pharmacy will continue to monitor patient daily and write orders per [facility] inpatient glycemic control protocol. Thanks. * Please note that the plan above was derived based on current level of insulin resistance and hospital stress. These recommendations are appropriate for inpatient admission only. Plan of care upon discharge will need to be reassessed to avoid potential outpatient hypo/hyperglycemia.
[2016-08-07] MEDS: INSULIN GLARGINE SOLOSTAR 100 UNITS/ML 3 ML PEN SC SCH (20:00)
[2016-08-07] MEDS: MIRTAZAPINE TAB 15 MG TAB PO SCH (20:39)
[2016-08-08 06:51] VITALS: BP 131/83; PULSE 98; TEMP 36.6
[2016-08-08] MEDS: OLMESARTAN MEDOXOMIL 5 MG TAB PO SCH (08:54)
[2016-08-08] MEDS: LEVOTHYROXINE 125 MCG TAB PO SCH (08:54)
[2016-08-08] MEDS: ARIPIprazole TAB 5 MG TAB PO SCH (08:54)
[2016-08-08] MEDS: PAROXETINE 20 MG TAB PO SCH (08:55)
[2016-08-08] MEDS: GABAPENTIN 400 MG CAP PO SCH ×3 (08:55→20:34)
[2016-08-08] MEDS: NAPROXEN 250 MG TAB PO SCH (08:55)
[2016-08-08] MEDS: FAMOTIDINE 20 MG TAB PO SCH ×2 (08:55→20:34)
[2016-08-08] MEDS: INSULIN ASPART 100 UNITS/ML 3 ML PEN SC SCH ×4 (09:14→20:29)
[2016-08-08] MEDS: HEPARIN SOD 5000 UNIT/0.5 ML CARP SQ SCH ×2 (09:15→20:39)
--- NOTE | 2016-08-08 09:27 | Psychiatric Progress Notes ---
Progress Note Date of Service Aug 08, 2016. Interval History 61 yo female initially admitted to the medical floor on 07/26/16 following an intentional overdose in a suicide attempt, moved to our unit on 07/29/16 On 07/31/16 she was moved moved back to medical with complaints of abd pain and hypotension. She was readmitted to [facility] on 08/02/16 Her depression has been persistent since having surgery on her back in the summer, secondary to complications including foot drop, ongoing lower extremity pain and impaired mobility. Chief Complaint "OK I guess.". Subjective Patient was seen & assessed interval progress reviewed with Treatment Team. The patient is sitting at the bedside eating breakfast. She is worried today about making the decision regarding rehab. She spoke with her daughter last evening, who said that she has concerns about [facility] since daughter perceives that things did not go smoothly there. She says that when Codi arrived, there was no one to show her to her room, or orient her to the facility , and that they were told they could give IV's, which they couldn't and had her meds incorrect. Codi would like for her daughter to be present for a meeting with the [facility] rep in order to ask questions and get clarification before she would agree to go there. Codi is also considering other facilities such as [facility]. She is reporting pain in her legs this AM, but is not tearful when talking about it. Yesterday she worked with the PT rep to use her legs to push herself in the wheel chair which is progress. She denies active SI today. She was able to shower with assist yesterday. Review of Systems Constitutional: + fatigue ENT: No dental problems, No hearing loss, No nasal symptoms, No problem reported, No sore throat, No tinnitus, No trouble swallowing, No unusual epistaxis Respiratory: No cough, No dyspnea at rest, No dyspnea on exertion, No hemoptysis, No problem reported, No shortness of breath, No sputum, No wheezing Abdomen: No GI bleeding, No constipation, No diarrhea, No nausea, No pain, No problem reported, No vomiting Musculoskeletal: + problem reported (back and BLE pain) Neurologic: + problem reported (BLE muscle wasting), + weakness Psychiatric: + depression symptoms Integumentary: No bleeding, No color change, No itch, No new/changing skin lesions, No problem reported, No rash Sleep Information Total Hours of Sleep: 7.75 Meal Information Percent of Breakfast Consumed: 90 Percent of Lunch Consumed: 100 Percent of Dinner Consumed: 100 Mental Status Exam During interview pt is: alert and oriented, cooperative Appearance: appropriately dressed, disheveled Eye contact is: good Motor behavior is: no abnormal motor movements, other (using WC) Speech: normal in rate, rhythm & volume (tearful) Affect: depressed Mood is: depressed Thought process: goal directed Thought content: reality based without delusions (ruminations of guilt) Suicidal thought are: present, Plan: denied, Intent: denied Homicidal thoughts are: denied Hallucinations: denies auditory, denies visual Cognition: memory grossly intact, attention grossly intact Intelligence estimated to be: average Insight: impaired Judgement: impaired Impression The patient is less tearful today as she considers her rehab options and was able to use her legs more with the assist of PT. She is more painful today as a result, but to be expected. She is currently on Paxil 40 mg. and Abilify 5 mg. to augment and may need several more weeks at this level to determine if effective. We will continue to work toward a rehab referral for post discharge to continue strengthening Continued Inpatient Care The patient requires inpatient care due to the severity of her condition and the risk for another suicide attempt if discharged. Plan (1) Suicide attempt suicide checks for safety participate in groups and unit programming work on health coping skills and safety plan family meeting (2) Major depressive disorder, recurrent episode, severe with anxious distress 08/02/16 - Retitrating Paxil (at 40mg since 07/31) and reintroducing Abilify ( 5mg daily) that seemed to work well as augmenting agent last hospitalization. Targets obsessive thinking and Abilify likely better from a glucose control standpoint. - She is very verbal re: her suicidal ideation and very aware of her needs re : medical assists, unable to tolerate roommate--[facility] given severity of SI and medical needs. - Encourage patient to be out of bed, showering and dressing daily, and attending groups. - Fasting labs ordered 08/03/16 for monitoring on an atypical antipsychotic. 08/05/16 -increase paxil to 50mg, and continue abilify 5mg/d and continue plan as above - encouraged her to focus on 3 daily things that she can control: PT exercises BID, eating, and taking her medications - will request visit from at [facility] as per discussion with patient 08/06/16 -She seems dizzy on increased paxil, which may also be amplification of her abilify or her remeron, will return paxil 40mg at patient's request and monitor - if dizziness persists consider reduction of remeron (limited efficacy as outpatient and goal to reduce polypharmacy) - continue abilify 5mg (amplified in vivo by paxil) encouraged her to get out of bed daily and attend groups to reduce amount of time ruminating in her mind 08/07/16 - Continue current meds. Consider taper of Remeron is sedation, fatigue, hypotensive (3) Intractable low back pain Pain management saw her 07/27, and stated she is is not a candidate for interventional procedures, deferred repeat lumbar spine imaging to Dr. Cardoza, and recommended initiation of gabapentin 300 mg at bedtime progressing to t.i.d. over the next 3 days in an attempt to diminish neuropathic pain complaints. Did not recommend utilization of opiate therapy in this patient as she has significant risk of opioid misuse/abuse with recent history of intentional overdose of meloxicam as well as her comorbid medical conditions. Consider evaluation for her candidacy for inpatient rehabilitative process upon discharge should be considered. 08/03 - Will consult with Dr. Cardoza and Dr. Briggs re: ongoing pain and weakness/ foot drop - Increase neurontin to 400 mg. TID 08/04 and continuing - Collaborated with Dr. Cardoza and Dr. Briggs. Will proceed with active PT and consider rehab post discharge. - No evidence for autonomic dysregulation or evidence of Guillam [place] - Encourage progressive increase to activity - PT will see daily (week?) 08/07/16 - Ask PT to renew daily visits in preparation for referral to [facility] (4) Lower extremity weakness 08/02 and continuing - PT consult and treat, likely to require inpatient rehab - Dr. Cardoza of orthopedics saw her today, appreciate recommendations - consider neurology consult for b/l EMG with nerve conduction study. Lumbar spine MRI today showed postsurgical changes at the L4-5 and L5-S1 levels, soft tissue surrounding the thecal sac and left L5 nerve root at the L4-5 level, and mild L5 nerve root edema. While nonspecific, the soft tissue likely represents postsurgical epidural fibrosis. - she remains on Sub Cut heparin (5) Diabetes - Check glucose ACHS with insulin and sliding scale - Consult diabetic pharmacist for glucose control - Diabetic diet Discharge / Aftercare Planning Primary Care Physician: Name: Dr Kerr Psychiatrist: Name: Dr Rios Date of Appointment: Aug 24, 2016 Time of Appointment: 10:00 Therapist: Name: Katiuska Heller Date of Appointment: Aug 22, 2016 Time of Appointment: 10:00 Visit Code E&M Code: 15625 Inventory Assets Strengths: supportive family, willingness to engage in treatment Risk Factors Assessment : Yes /single/: No Higher / Fall in social status: No Health problems: Yes Mental Health Diagnoses: Yes Substance use disorders: No Previous attempt: No Family history of suicide: No Previous psychiatric stay: Yes Hopelessness: Yes Protective Factors Assessment : Yes Responsible for young children: No Employed: No Stable relationships: Yes Supportive family: Yes Data Vital Signs Last 24 Hrs: Date Time Temp Pulse Resp B/P Pulse Ox O2 Delivery O2 Flow Rate FiO2 08/08/16 06:51 36.6 98 16 131/83 Meds Administered Last 24 Hrs: Meds Administered (Past 24Hrs) Medications (Trade) Dose Ordered Sig/Trevon Route Start Time Stop Time Status Last Admin Dose Admin Paroxetine HCl (pAXil TAB) 40 mg QAM PO 08/07/16 09:00 09/06/16 08:59 08/07/16 09:18 40 MG Insulin Glargine (Lantus Solostar Pen) 50 unit DAILY@1999 [place] 08/06/16 20:00 09/05/16 19:59 08/07/16 20:00 50 UNIT Lab Results Last 24 Hrs: Last 24 Hours Test 08/07/16 12:06 08/07/16 17:11 08/07/16 19:33 Bedside Glucose 275 mg/dl 183 mg/dl 228 mg/dl
--- NOTE | 2016-08-08 10:35 | Pharmacy Progress Note ---
Glycemic Control: Progress Nt Date of Service Aug 08, 2016. Scope Glycemic Pharmacist consulted by Dr Salazar on 07/30/16 for glycemic control and to write orders per [facility] inpatient glycemic control protocol. Objective Accuchecks BSG (last 24hrs): Test 08/07/16 12:06 08/07/16 17:11 08/07/16 19:33 08/08/16 07:00 Bedside Glucose 275 mg/dl (70-90) 183 mg/dl (70-90) 228 mg/dl (70-90) 86mg/dl HbA1c: Item Value Date Time Hemoglobin A1c 8.7 % H 07/31/16 0520 Recent Pertinent Medications Outpatient Anti-diabetic Regimen: * Lantus 45 units SQ HS * NovoLog 10 units SQ TID The patient is currently receiving: * Basal insulin: Lantus 50 units every 24 hours given at bedtime * Correctional Insulin: Novolog Correction per scale ACHS Goal Range: Low 100 mg/dL - High 140 mg/dL Correction Factor: 12 mg/dL/unit * Prandial insulin: Per carb ratio of 1 unit per 4 grams CHO consumed Risk Factors for Insulin Resistance: * Diet * Baseline poor control, elevated A1c Assessment & Plan ASSESSMENT: * 61yo T2DM female known to pharmacy from previous admissions/glycemic consults * Per previous admissions, patient had required significantly less insulin during admission as compared to outpatient dosing. However, this admission, insulin was initiated conservatively and titrated back upwards to outpatient dosing. * Patient has been receiving ~ 100 units of insulin per day with adequate control. * Patient does have some BSG fluctuations but suspect that this may be normal for patient based on A1c * Regimen is currently split 50%:50% between basal:prandial insulin which is the preferred split for inpatient use to prevent hypo when PO status changes. * AM fasting BSG slightly below goal range this morning at 86mg/dl. Will reduce Lantus dose slightly back to home dosing. * ADA & AACE recommend a goal blood sugar range 140-180 mg/dl for the majority of critically ill & non-critically ill patients. However, more stringent targets may be selected in individual cases. Will utilize more stringent target of 110-140mg/dl based on age and co-morbidities. PLAN FOR INPATIENT GLYCEMIC CONTROL: * DECREASE Basal insulin with LANTUS 45 units SQ HS * CONTINUE Correctional Insulin with NOVOLOG per scale ACHS or Q6hrs while NPO * Goal Range: Low 110 mg/dL - High 140 mg/dL * Correction Factor: 12 mg/dL/unit * Nutritional / Prandial insulin per carb ratio of 1 unit per 4 grams CHO consumed * Please note that the plan above was derived based on current level of insulin resistance and hospital stress. These recommendations are appropriate for inpatient admission only. Plan of care upon discharge will need to be reassessed to avoid potential outpatient hypo/hyperglycemia. Thank you.
[2016-08-08] MEDS: MAGNESIUM HYDROXIDE SUSP 30 ML UDC PO PRN (14:10)
[2016-08-08] MEDS: MIRTAZAPINE TAB 15 MG TAB PO SCH (20:34)
[2016-08-08] MEDS: INSULIN GLARGINE SOLOSTAR 100 UNITS/ML 3 ML PEN SC SCH (20:41)
[2016-08-09] MEDS: ACETAMINOPHEN 325 MG TAB PO PRN (05:48)
[2016-08-09 06:51] VITALS: BP 155/98; PULSE 86; TEMP 36.8
[2016-08-09] MEDS: LEVOTHYROXINE 125 MCG TAB PO SCH (07:43)
[2016-08-09] MEDS: INSULIN ASPART 100 UNITS/ML 3 ML PEN SC SCH ×4 (08:00→20:25)
[2016-08-09] MEDS: GABAPENTIN 400 MG CAP PO SCH ×3 (08:39→20:13)
[2016-08-09] MEDS: OLMESARTAN MEDOXOMIL 5 MG TAB PO SCH (08:39)
[2016-08-09] MEDS: PAROXETINE 20 MG TAB PO SCH (08:39)
[2016-08-09] MEDS: ARIPIprazole TAB 5 MG TAB PO SCH (08:39)
[2016-08-09] MEDS: FAMOTIDINE 20 MG TAB PO SCH ×2 (08:40→20:13)
--- NOTE | 2016-08-09 08:51 | Psychiatric Progress Notes ---
Progress Note Date of Service Aug 09, 2016. Interval History 61 yo female initially admitted to the medical floor on 07/26/16 following an intentional overdose in a suicide attempt, moved to our unit on 07/29/16 On 07/31/16 she was moved moved back to medical with complaints of abd pain and hypotension. She was readmitted to [facility] on 08/02/16 Her depression has been persistent since having surgery on her back in the summer, secondary to complications including foot drop, ongoing lower extremity pain and impaired mobility. Chief Complaint "Okay". Subjective Patient was seen & assessed interval progress reviewed with Treatment Team. Staff report she had a difficult day, was tearful and overwhelmed, and had difficulty making decisions about rehab. She is upset about her previous experience at [facility] and was considering other options for inpatient PT. She attended some groups but had poor participation. She remains severely depressed, with poor motivation, but denies SI. Today she initially says she is "okay," then starts crying and says she is worried and feels unable to make a decision. She is worried about not being able to get around her home, saying she can't walk or get up the stairs. When reminded that she'll be going to inpatient rehab to work on her strength and mobility, she says she feels unable to make a decision about that as well, and isn't sure where she wants to go. She is willing to have a meeting with her family and someone from [facility] so they can discuss concerns and hopefully that will help her to make a decision. She denies SI, but is struggling to function, saying she is in pain today and doesn't want to get up or do anything. Sleep was poor due to pain, but appetite is good and she ate all of her breakfast. Sleep Information Total Hours of Sleep: 8.25 Meal Information Percent of Breakfast Consumed: 100 Percent of Lunch Consumed: 100 Percent of Dinner Consumed: 75 Mental Status Exam During interview pt is: alert and oriented, cooperative Appearance: appropriately dressed, disheveled (tearful) Eye contact is: good Motor behavior is: no abnormal motor movements Speech: normal in rate, rhythm & volume Affect: depressed, constricted Mood is: depressed Thought process: goal directed Thought content: preoccupation (on not being able to get around well), reality based without delusions (ruminations of guilt) Suicidal thought are: denied, Plan: denied, Intent: denied Homicidal thoughts are: denied Hallucinations: denies auditory, denies visual Cognition: memory grossly intact, attention grossly intact Intelligence estimated to be: average Insight: impaired Judgement: impaired Impression The patient remains severely depressed and tearful, feels overwhelmed by her physical condition, and will need help to consider her rehab options and make a decision about disposition. She is currently on Paxil 40 mg. and Abilify 5 mg. to augment and may need several more weeks at this level to determine if effective. We will continue to work toward a rehab referral for post discharge to continue strengthening. Continued Inpatient Care The patient requires inpatient care due to the severity of her condition and the risk for another suicide attempt if discharged. Plan (1) Suicide attempt suicide checks for safety participate in groups and unit programming work on health coping skills and safety plan family meeting (2) Major depressive disorder, recurrent episode, severe with anxious distress 08/02/16 - Retitrating Paxil (at 40mg since 07/31) and reintroducing Abilify ( 5mg daily) that seemed to work well as augmenting agent last hospitalization. Targets obsessive thinking and Abilify likely better from a glucose control standpoint. - She is very verbal re: her suicidal ideation and very aware of her needs re : medical assists, unable to tolerate roommate--[facility] given severity of SI and medical needs. - Encourage patient to be out of bed, showering and dressing daily, and attending groups. - Fasting labs ordered 08/03/16 for monitoring on an atypical antipsychotic. 08/05/16 -increase paxil to 50mg, and continue abilify 5mg/d and continue plan as above - encouraged her to focus on 3 daily things that she can control: PT exercises BID, eating, and taking her medications - will request visit from at [facility] as per discussion with patient 08/06/16 -She seems dizzy on increased paxil, which may also be amplification of her abilify or her remeron, will return paxil 40mg at patient's request and monitor - if dizziness persists consider reduction of remeron (limited efficacy as outpatient and goal to reduce polypharmacy) - continue abilify 5mg (amplified in vivo by paxil) encouraged her to get out of bed daily and attend groups to reduce amount of time ruminating in her mind 08/07/16 - present - Continue current meds. Consider taper of Remeron is sedation, fatigue, hypotensive (3) Intractable low back pain Pain management saw her 07/27, and stated she is is not a candidate for interventional procedures, deferred repeat lumbar spine imaging to Dr. Cardoza, and recommended initiation of gabapentin 300 mg at bedtime progressing to t.i.d. over the next 3 days in an attempt to diminish neuropathic pain complaints. Did not recommend utilization of opiate therapy in this patient as she has significant risk of opioid misuse/abuse with recent history of intentional overdose of meloxicam as well as her comorbid medical conditions. Consider evaluation for her candidacy for inpatient rehabilitative process upon discharge should be considered. 08/03 - Will consult with Dr. Cardoza and Dr. Briggs re: ongoing pain and weakness/ foot drop - Increase neurontin to 400 mg. TID 08/04 and continuing - Collaborated with Dr. Cardoza and Dr. Briggs. Will proceed with active PT and consider rehab post discharge. - No evidence for autonomic dysregulation or evidence of Guillam [place] - Encourage progressive increase to activity - PT will see daily (week?) 08/07/16 - Ask PT to work with her daily in preparation for referral to [facility], as her poor physical condition is her primary stressor (4) Lower extremity weakness 08/02 and continuing - PT consult and treat, likely to require inpatient rehab - Dr. Cardoza of orthopedics saw her today, appreciate recommendations - consider neurology consult for b/l EMG with nerve conduction study. Lumbar spine MRI today showed postsurgical changes at the L4-5 and L5-S1 levels, soft tissue surrounding the thecal sac and left L5 nerve root at the L4-5 level, and mild L5 nerve root edema. While nonspecific, the soft tissue likely represents postsurgical epidural fibrosis. - she remains on Sub Cut heparin 08/09/16 - Will schedule meeting with family and [facility] to address family's and facility's questions and concerns about her returning there (5) Diabetes - Check glucose ACHS with insulin and sliding scale - Consult diabetic pharmacist for glucose control - Diabetic diet Discharge / Aftercare Planning Primary Care Physician: Name: Dr Kerr Psychiatrist: Name: Dr Rios Date of Appointment: Aug 24, 2016 Time of Appointment: 10:00 Therapist: Name: Katiuska Heller Date of Appointment: Aug 22, 2016 Time of Appointment: 10:00 Visit Code E&M Code: 11591 Inventory Assets Strengths: supportive family, willingness to engage in treatment Risk Factors Assessment : Yes /single/: No Higher / Fall in social status: No Health problems: Yes Mental Health Diagnoses: Yes Substance use disorders: No Previous attempt: No Family history of suicide: No Previous psychiatric stay: Yes Hopelessness: Yes Protective Factors Assessment : Yes Responsible for young children: No Employed: No Stable relationships: Yes Supportive family: Yes Data Vital Signs Last 24 Hrs: Date Time Temp Pulse Resp B/P Pulse Ox O2 Delivery O2 Flow Rate FiO2 08/09/16 06:51 36.8 86 16 155/98 Meds Administered Last 24 Hrs: Meds Administered (Past 24Hrs) Medications (Trade) Dose Ordered Sig/Trevon Route Start Time Stop Time Status Last Admin Dose Admin Paroxetine HCl (pAXil TAB) 40 mg QAM PO 08/07/16 09:00 09/06/16 08:59 08/08/16 08:55 40 MG Insulin Glargine (Lantus Solostar Pen) 45 unit DAILY@1999 [place] 08/08/16 20:00 09/07/16 19:59 08/08/16 20:41 45 UNIT Lab Results Last 24 Hrs: Last 24 Hours Test 08/08/16 12:08 08/08/16 17:15 08/08/16 20:26 08/09/16 07:46 Bedside Glucose 213 mg/dl 88 mg/dl 129 mg/dl 81 mg/dl
[2016-08-09] MEDS: HEPARIN SOD 5000 UNIT/0.5 ML CARP SQ SCH ×2 (10:04→20:26)
[2016-08-09] MEDS: MIRTAZAPINE TAB 15 MG TAB PO SCH (20:14)
[2016-08-09] MEDS: INSULIN GLARGINE SOLOSTAR 100 UNITS/ML 3 ML PEN SC SCH (20:18)
[2016-08-10] MEDS: hydrOXYzine HCL 25 MG TAB PO PRN (03:34)
[2016-08-10 06:42] VITALS: BP 152/88; PULSE 100; TEMP 36.8
[2016-08-10] MEDS: LEVOTHYROXINE 125 MCG TAB PO SCH (07:37)
[2016-08-10] MEDS: ACETAMINOPHEN 325 MG TAB PO PRN ×2 (07:37→13:58)
[2016-08-10] MEDS: INSULIN ASPART 100 UNITS/ML 3 ML PEN SC SCH ×4 (08:00→20:35)
[2016-08-10] MEDS: HEPARIN SOD 5000 UNIT/0.5 ML CARP SQ SCH ×2 (09:00→20:32)
[2016-08-10] MEDS: FAMOTIDINE 20 MG TAB PO SCH ×2 (09:11→20:34)
[2016-08-10] MEDS: PAROXETINE 20 MG TAB PO SCH (09:11)
[2016-08-10] MEDS: GABAPENTIN 400 MG CAP PO SCH ×3 (09:11→20:34)
[2016-08-10] MEDS: OLMESARTAN MEDOXOMIL 5 MG TAB PO SCH (09:11)
[2016-08-10] MEDS: ARIPIprazole TAB 5 MG TAB PO SCH (09:11)
--- NOTE | 2016-08-10 11:49 | Psychiatric Progress Notes ---
Progress Note Date of Service Aug 10, 2016. Interval History 61 yo female initially admitted to the medical floor on 07/26/16 following an intentional overdose in a suicide attempt, moved to our unit on 07/29/16 On 07/31/16 she was moved moved back to medical with complaints of abd pain and hypotension. She was readmitted to [facility] on 08/02/16 Her depression has been persistent since having surgery on her back in the summer, secondary to complications including foot drop, ongoing lower extremity pain and impaired mobility. Chief Complaint "Ok I guess". Subjective Patient was seen & assessed interval progress reviewed with Treatment Team, Staff report she had a meeting with her daughter and rep from [facility] and they hope she can start there next week. She says she is still anxious about going to rehab, worrying she won't be able to do everything they ask of her, and feels overwhelmed, but does feel better than prior to the meeting. She is planning to attend groups today, but continues to struggle with pain and weakness. She denies SI. Sleep is disrupted by pain and she is requesting Aleve at bedtime. Sleep Information Total Hours of Sleep: 7.50 Meal Information Percent of Breakfast Consumed: 100 Percent of Lunch Consumed: 100 Percent of Dinner Consumed: 100 Mental Status Exam During interview pt is: alert and oriented, cooperative Appearance: appropriately dressed, disheveled (tearful) Eye contact is: good Motor behavior is: no abnormal motor movements Speech: normal in rate, rhythm & volume Affect: depressed, anxious, constricted Mood is: depressed, anxious Thought process: goal directed Thought content: preoccupation (on not being able to get around well), reality based without delusions Suicidal thought are: denied Homicidal thoughts are: denied Hallucinations: denies auditory, denies visual Cognition: memory grossly intact, attention grossly intact Intelligence estimated to be: average Insight: impaired Judgement: impaired Impression The patient remains severely depressed and tearful, feels overwhelmed by her physical condition, and will need help to consider her rehab options and make a decision about disposition. She is currently on Paxil 40 mg. and Abilify 5 mg. to augment and may need several more weeks at this level to determine if effective. We will continue to work toward a rehab referral for post discharge to continue strengthening. Continued Inpatient Care The patient requires inpatient care due to the severity of her condition and the risk for another suicide attempt if discharged. Plan (1) Suicide attempt suicide checks for safety participate in groups and unit programming work on health coping skills and safety plan family meeting - held 08/09/16 (2) Major depressive disorder, recurrent episode, severe with anxious distress 08/02/16 - Retitrating Paxil (at 40mg since 07/31) and reintroducing Abilify ( 5mg daily) that seemed to work well as augmenting agent last hospitalization. Targets obsessive thinking and Abilify likely better from a glucose control standpoint. - She is very verbal re: her suicidal ideation and very aware of her needs re : medical assists, unable to tolerate roommate--MNPR given severity of SI and medical needs. - Encourage patient to be out of bed, showering and dressing daily, and attending groups. - Fasting labs ordered 08/03/16 for monitoring on an atypical antipsychotic. 08/05/16 -increase paxil to 50mg, and continue abilify 5mg/d and continue plan as above - encouraged her to focus on 3 daily things that she can control: PT exercises BID, eating, and taking her medications - will request visit from at [facility] as per discussion with patient 08/06/16 -She seems dizzy on increased paxil, which may also be amplification of her abilify or her remeron, will return paxil 40mg at patient's request and monitor - if dizziness persists consider reduction of remeron (limited efficacy as outpatient and goal to reduce polypharmacy) - continue abilify 5mg (amplified in vivo by paxil) encouraged her to get out of bed daily and attend groups to reduce amount of time ruminating in her mind 08/07/16 - present - Continue current meds. (3) Intractable low back pain Pain management saw her 07/27, and stated she is is not a candidate for interventional procedures, deferred repeat lumbar spine imaging to Dr. Cardoza, and recommended initiation of gabapentin 300 mg at bedtime progressing to t.i.d. over the next 3 days in an attempt to diminish neuropathic pain complaints. Did not recommend utilization of opiate therapy in this patient as she has significant risk of opioid misuse/abuse with recent history of intentional overdose of meloxicam as well as her comorbid medical conditions. Consider evaluation for her candidacy for inpatient rehabilitative process upon discharge should be considered. 08/03 - Will consult with Dr. Cardoza and Dr. Briggs re: ongoing pain and weakness/ foot drop - Increase neurontin to 400 mg. TID 08/04 and continuing - Collaborated with Dr. Cardoza and Dr. Briggs. Will proceed with active PT and consider rehab post discharge. - No evidence for autonomic dysregulation or evidence of Guillam [place] - Encourage progressive increase to activity - PT will see daily (week?) 08/07/16 - Ask PT to work with her daily in preparation for referral to [facility], as her poor physical condition is her primary stressor (4) Lower extremity weakness 08/02 and continuing - PT consult and treat, likely to require inpatient rehab - Dr. Cardoza of orthopedics saw her today, appreciate recommendations - consider neurology consult for b/l EMG with nerve conduction study. Lumbar spine MRI today showed postsurgical changes at the L4-5 and L5-S1 levels, soft tissue surrounding the thecal sac and left L5 nerve root at the L4-5 level, and mild L5 nerve root edema. While nonspecific, the soft tissue likely represents postsurgical epidural fibrosis. - she remains on Sub Cut heparin 08/09/16 - Meeting held with [facility] rep to address family's and facility's questions and concerns about her returning there. Referral made and she may be able to go there Sunday. (5) Diabetes - Check glucose ACHS with insulin and sliding scale - Consult diabetic pharmacist for glucose control - Diabetic diet Discharge / Aftercare Planning Primary Care Physician: Name: Dr Kerr Psychiatrist: Name: Dr Rios Date of Appointment: Aug 24, 2016 Time of Appointment: 10:00 Therapist: Name: Katiuska Heller Date of Appointment: Aug 22, 2016 Time of Appointment: 10:00 Visit Code E&M Code: 38971 Inventory Assets Strengths: supportive family, willingness to engage in treatment Risk Factors Assessment : Yes /single/: No Higher / Fall in social status: No Health problems: Yes Mental Health Diagnoses: Yes Substance use disorders: No Previous attempt: No Family history of suicide: No Previous psychiatric stay: Yes Hopelessness: Yes Protective Factors Assessment : Yes Responsible for young children: No Employed: No Stable relationships: Yes Supportive family: Yes Data Vital Signs Last 24 Hrs: Date Time Temp Pulse Resp B/P Pulse Ox O2 Delivery O2 Flow Rate FiO2 08/10/16 06:42 36.8 100 16 152/88 Meds Administered Last 24 Hrs: Meds Administered (Past 24Hrs) Medications (Trade) Dose Ordered Sig/Trevon Route Start Time Stop Time Status Last Admin Dose Admin Insulin Glargine (Lantus Solostar Pen) 45 unit DAILY@1999 [place] 08/08/16 20:00 09/07/16 19:59 08/09/16 20:18 45 UNIT Lab Results Last 24 Hrs: Last 24 Hours Test 08/09/16 12:10 08/09/16 16:23 08/09/16 19:45 08/10/16 07:40 Bedside Glucose 164 mg/dl 182 mg/dl 154 mg/dl 124 mg/dl
--- NOTE | 2016-08-10 15:28 | Pharmacy Progress Note ---
Glycemic: Assessment & Plan Date of Service Aug 10, 2016. Assessment & Plan * The patient is currently receiving 90-100 units of insulin per day. BSGs ranging 81 - 213 mg/dl over the past 24hrs. * BSG did spike today pre-lunch, however, BSGs are mostly controlled at other times. Will continue current regimen unless BSGs begin to consistently elevated above desired goal range. CONTINUE INPATIENT GLYCEMIC PLAN: * Basal insulin: Lantus 45 units qHS * Correctional Insulin: Novolog Correction per scale ACHS Goal Range: Low 110 mg/dL - High 140 mg/dL Correction Factor: 12 mg/dL/unit * Prandial insulin: Per carb ratio of 1 unit per 4 grams CHO consumed BSGs continue to improve, no changes needed to inpatient regimen at this time. Pharmacy will continue to monitor patient daily and write orders per [facility] inpatient glycemic control protocol. Thanks. * Please note that the plan above was derived based on current level of insulin resistance and hospital stress. These recommendations are appropriate for inpatient admission only. Plan of care upon discharge will need to be reassessed to avoid potential outpatient hypo/hyperglycemia.
[2016-08-10] MEDS: MIRTAZAPINE TAB 15 MG TAB PO SCH (20:34)
[2016-08-10] MEDS: INSULIN GLARGINE SOLOSTAR 100 UNITS/ML 3 ML PEN SC SCH (20:34)
[2016-08-11 06:37] VITALS: BP 135/79; PULSE 92; TEMP 36.5
[2016-08-11] MEDS: LEVOTHYROXINE 125 MCG TAB PO SCH (07:39)
[2016-08-11] MEDS: OLMESARTAN MEDOXOMIL 5 MG TAB PO SCH (08:56)
[2016-08-11] MEDS: ARIPIprazole TAB 5 MG TAB PO SCH (08:56)
[2016-08-11] MEDS: GABAPENTIN 400 MG CAP PO SCH ×3 (08:57→21:02)
[2016-08-11] MEDS: PAROXETINE 20 MG TAB PO SCH (08:57)
[2016-08-11] MEDS: FAMOTIDINE 20 MG TAB PO SCH ×2 (08:57→21:02)
[2016-08-11] MEDS: HEPARIN SOD 5000 UNIT/0.5 ML CARP SQ SCH ×2 (08:59→20:44)
[2016-08-11] MEDS: INSULIN ASPART 100 UNITS/ML 3 ML PEN SC SCH ×4 (09:39→20:36)
--- NOTE | 2016-08-11 11:44 | Psychiatric Progress Notes ---
Progress Note Date of Service Aug 11, 2016. Interval History 61 yo female initially admitted to the medical floor on 07/26/16 following an intentional overdose in a suicide attempt, moved to our unit on 07/29/16 On 07/31/16 she was moved moved back to medical with complaints of abd pain and hypotension. She was readmitted to [facility] on 08/02/16 Her depression has been persistent since having surgery on her back in the summer, secondary to complications including foot drop, ongoing lower extremity pain and impaired mobility. Chief Complaint "I'm nervous.". Subjective Patient was seen & assessed interval progress reviewed with Treatment Team. The patient says that she is nervous about the prospect of going to rehab next week. She has been working with PT here for strengthening and finds it hard work, resulting in leg pain. She is more hopeful that things will turn around but has lingering catastrophic fantasies that she will not be able to walk and worries "What will happen then?". Her mood is "anxious" but denies SI today. She is requesting boost once daily and is wondering if the heparin shots can be stopped. Staff report that she is more able to help herself, transferring from bed to beside commode, and wheeling herself with her legs in the WC. Review of Systems Constitutional: + fatigue ENT: No dental problems, No hearing loss, No nasal symptoms, No problem reported, No sore throat, No tinnitus, No trouble swallowing, No unusual epistaxis Respiratory: No cough, No dyspnea at rest, No dyspnea on exertion, No hemoptysis, No problem reported, No shortness of breath, No sputum, No wheezing Cardiovascular: No PND, No chest pain, No claudication, No edema, No orthopnea , No palpitations, No problem reported Abdomen: No GI bleeding, No constipation, No diarrhea, No nausea, No pain, No problem reported, No vomiting Musculoskeletal: + problem reported (BLE pain and weakness) Neurologic: + weakness (BLE, with muscle wasting) Psychiatric: + anxiety, + depression symptoms Integumentary: No bleeding, No color change, No itch, No new/changing skin lesions, No problem reported, No rash Sleep Information Total Hours of Sleep: 8.00 Meal Information Percent of Breakfast Consumed: 100 Percent of Lunch Consumed: 100 Percent of Dinner Consumed: 100 Mental Status Exam During interview pt is: alert and oriented, cooperative Appearance: appropriately dressed, disheveled (tearful) Eye contact is: good Motor behavior is: no abnormal motor movements Speech: normal in rate, rhythm & volume Affect: depressed, anxious, constricted Mood is: depressed, anxious Thought process: goal directed Thought content: preoccupation (on not being able to get around well), reality based without delusions Suicidal thought are: denied Homicidal thoughts are: denied Hallucinations: denies auditory, denies visual Cognition: memory grossly intact, attention grossly intact Intelligence estimated to be: average Insight: impaired Judgement: impaired Impression The patient remains severely depressed and tearful, feels overwhelmed by her physical conditions. Is more hopeful, however, that she is moving in the right direction and remains committed to working hard at rehab. She is anxious and holds on to worry that it won't work, which we talked about, discouraged borrowing problems that don't yet exist. We will contact he from [facility] today to finalize the referral. Will also order Boost once daily at patient request. She continues to require DVT prophylaxis as she remains largely inactive and WC bound. Continued Inpatient Care The patient requires inpatient care due to the severity of her condition and the risk for another suicide attempt if discharged. Plan (1) Suicide attempt suicide checks for safety participate in groups and unit programming work on health coping skills and safety plan family meeting - held 08/09/16 (2) Major depressive disorder, recurrent episode, severe with anxious distress 08/02/16 - Retitrating Paxil (at 40mg since 07/31) and reintroducing Abilify ( 5mg daily) that seemed to work well as augmenting agent last hospitalization. Targets obsessive thinking and Abilify likely better from a glucose control standpoint. - She is very verbal re: her suicidal ideation and very aware of her needs re : medical assists, unable to tolerate roommate--MNPR given severity of SI and medical needs. - Encourage patient to be out of bed, showering and dressing daily, and attending groups. - Fasting labs ordered 08/03/16 for monitoring on an atypical antipsychotic. 08/05/16 -increase paxil to 50mg, and continue abilify 5mg/d and continue plan as above - encouraged her to focus on 3 daily things that she can control: PT exercises BID, eating, and taking her medications - will request visit from at [facility] as per discussion with patient 08/06/16 -She seems dizzy on increased paxil, which may also be amplification of her abilify or her remeron, will return paxil 40mg at patient's request and monitor - if dizziness persists consider reduction of remeron (limited efficacy as outpatient and goal to reduce polypharmacy) - continue abilify 5mg (amplified in vivo by paxil) encouraged her to get out of bed daily and attend groups to reduce amount of time ruminating in her mind 08/07/16 - present - Continue current meds. 08/11 - Continue meds - Confirm acceptance at [facility] for next week. (3) Intractable low back pain Pain management saw her 07/27, and stated she is is not a candidate for interventional procedures, deferred repeat lumbar spine imaging to Dr. Cardoza, and recommended initiation of gabapentin 300 mg at bedtime progressing to t.i.d. over the next 3 days in an attempt to diminish neuropathic pain complaints. Did not recommend utilization of opiate therapy in this patient as she has significant risk of opioid misuse/abuse with recent history of intentional overdose of meloxicam as well as her comorbid medical conditions. Consider evaluation for her candidacy for inpatient rehabilitative process upon discharge should be considered. 08/03 - Will consult with Dr. Cardoza and Dr. Briggs re: ongoing pain and weakness/ foot drop - Increase neurontin to 400 mg. TID 08/04 and continuing - Collaborated with Dr. Cardoza and Dr. Briggs. Will proceed with active PT and consider rehab post discharge. - No evidence for autonomic dysregulation or evidence of Guillam [place] - Encourage progressive increase to activity - PT will see daily (?) 08/07/16 - Ask PT to work with her daily in preparation for referral to [facility], as her poor physical condition is her primary stressor (4) Lower extremity weakness 08/02 and continuing - PT consult and treat, likely to require inpatient rehab - Dr. Cardoza of orthopedics saw her today, appreciate recommendations - consider neurology consult for b/l EMG with nerve conduction study. Lumbar spine MRI today showed postsurgical changes at the L4-5 and L5-S1 levels, soft tissue surrounding the thecal sac and left L5 nerve root at the L4-5 level, and mild L5 nerve root edema. While nonspecific, the soft tissue likely represents postsurgical epidural fibrosis. - she remains on Sub Cut heparin 08/09/16 - Meeting held with [facility] to address family's and facility's questions and concerns about her returning there. Referral made and she may be able to go there Sunday. 08/11 - Continue PT, strengthening exercises (5) Diabetes - Check glucose ACHS with insulin and sliding scale - Consult diabetic pharmacist for glucose control - Diabetic diet Discharge / Aftercare Planning Primary Care Physician: Name: Dr Kerr Psychiatrist: Name: Dr Rios Date of Appointment: Aug 24, 2016 Time of Appointment: 10:00 Therapist: Name: Katiuska Heller Date of Appointment: Aug 22, 2016 Time of Appointment: 10:00 Visit Code E&M Code: 44498 Inventory Assets Strengths: supportive family, willingness to engage in treatment Risk Factors Assessment : Yes /single/: No Higher / Fall in social status: No Health problems: Yes Mental Health Diagnoses: Yes Substance use disorders: No Previous attempt: No Family history of suicide: No Previous psychiatric stay: Yes Hopelessness: Yes Protective Factors Assessment : Yes Responsible for young children: No Employed: No Stable relationships: Yes Supportive family: Yes Data Vital Signs Last 24 Hrs: Date Time Temp Pulse Resp B/P Pulse Ox O2 Delivery O2 Flow Rate FiO2 08/11/16 06:37 36.5 92 16 135/79 Meds Administered Last 24 Hrs: Current Inpatient Medications Medications (Trade) Dose Ordered Sig/Trevon Route Start Time Stop Time Status Last Admin Dose Admin Acetaminophen (Tylenol Tab) 650 mg Q4H PRN PO 08/02/16 13:45 09/01/16 13:44 08/10/16 13:58 650 MG Bismuth Subsalicylate (Kaopectate Liqd) 15 ml PRN PRN PO 08/02/16 13:45 09/01/16 13:44 Al Hydroxide/Mg Hydroxide (Maalox Susp) 30 ml Q4H PRN PO 08/02/16 13:45 09/01/16 13:44 Magnesium Hydroxide (Milk Of Magnesia Susp) 30 ml DAILY PRN PO 08/02/16 13:45 09/01/16 13:44 08/08/16 14:10 30 ML Sodium Chloride ([place] Nasal [place]) PRN PRN NA 08/02/16 13:45 09/01/16 13:44 Hydroxyzine HCl (Vistaril Tab) 50 mg HSZ PRN PO 08/02/16 13:45 09/01/16 13:44 Hydroxyzine HCl (Vistaril Tab) 25 mg Q4H PRN PO 08/02/16 13:45 09/01/16 13:44 08/10/16 03:34 25 MG Aripiprazole (Abilify Tab) 5 mg QAM PO 08/03/16 09:00 09/02/16 08:59 08/11/16 08:56 5 MG Famotidine (Pepcid Tab) 20 mg BID PO 08/02/16 22:00 09/01/16 21:59 08/11/16 08:57 20 MG Heparin Sodium (Porcine) (Heparin Sq 5000 Unit/0.5ml) 5,000 unit Q12 SQ 08/02/16 21:00 09/01/16 20:59 08/11/16 08:59 5,000 UNIT Insulin Aspart (novoLOG ASPART) ACHS SC 08/02/16 17:15 09/01/16 17:14 08/11/16 09:39 18 UNITS Levothyroxine Sodium (Synthroid Tab) 125 mcg DAILYBB PO 08/03/16 08:00 09/02/16 07:59 08/11/16 07:39 125 MCG Mirtazapine (Remeron Tab) 30 mg HS PO 08/02/16 22:00 09/01/16 21:59 08/10/16 20:34 30 MG Olmesartan (Benicar) 5 mg DAILY PO 08/03/16 09:00 09/02/16 08:59 08/11/16 08:56 5 MG Miscellaneous Information (Consult Glycemic Management Pharmacy) 1 ea UD PRN N/A 08/02/16 13:42 09/01/16 13:41 Gabapentin (Neurontin Cap) 400 mg TID PO 08/03/16 14:00 09/02/16 13:59 08/11/16 08:57 400 MG Paroxetine HCl (pAXil TAB) 40 mg QAM PO 08/07/16 09:00 09/06/16 08:59 08/11/16 08:57 40 MG Insulin Glargine (Lantus Solostar Pen) 45 unit DAILY@1999 [place] 08/08/16 20:00 09/07/16 19:59 08/10/16 20:34 45 UNIT Lab Results Last 24 Hrs: Last 24 Hours Test 08/10/16 12:09 08/10/16 16:58 08/10/16 19:59 08/11/16 07:44 Bedside Glucose 213 mg/dl 140 mg/dl 120 mg/dl 72 mg/dl
--- NOTE | 2016-08-11 12:18 | Pharmacy Progress Note ---
Glycemic: Assessment & Plan Date of Service Aug 11, 2016. Assessment & Plan The patient is currently receiving ~100 units of insulin per day. BSGs ranging 72 - 213 mg/dl over the past 24hrs. Minimal changes have been made to insulin regimen over the past several days. Pharmacy is signing off of patient case. Please feel free to re-consult pharmacy if needed. Thank you. The patient is currently ordered: * Basal insulin: Lantus 45 units every 24 hours given at bedtime * Correctional Insulin: Novolog Correction per scale ACHS Goal Range: Low 110 mg/dL - High 140 mg/dL Correction Factor: 12 mg/dL/unit * Prandial insulin: Per carb ratio of 1 unit per 4 grams CHO consumed * Please note that the plan above was derived based on current level of insulin resistance and hospital stress. These recommendations are appropriate for inpatient admission only. Plan of care upon discharge will need to be reassessed to avoid potential outpatient hypo/hyperglycemia.
[2016-08-11] MEDS: ACETAMINOPHEN 325 MG TAB PO PRN (13:33)
[2016-08-11 15:24] VITALS: BP 93/63; PULSE 101; PULSE 20
[2016-08-11 15:28] VITALS: BP 93/63; PULSE 101
[2016-08-11] MEDS: INSULIN GLARGINE SOLOSTAR 100 UNITS/ML 3 ML PEN SC SCH (20:00)
[2016-08-11] MEDS: MIRTAZAPINE TAB 15 MG TAB PO SCH (21:02)
[2016-08-12] MEDS: ACETAMINOPHEN 325 MG TAB PO PRN ×3 (06:49→18:49)
[2016-08-12 07:03] VITALS: BP_SYST 124; BP_SYST 125; BP_DIAS 72; BP_DIAS 75; PULSE 102; PULSE 94; TEMP 36.4
[2016-08-12] MEDS: LEVOTHYROXINE 125 MCG TAB PO SCH (08:59)
[2016-08-12] MEDS: HEPARIN SOD 5000 UNIT/0.5 ML CARP SQ SCH ×2 (09:00→20:26)
[2016-08-12] MEDS: OLMESARTAN MEDOXOMIL 5 MG TAB PO SCH (09:08)
[2016-08-12] MEDS: ARIPIprazole TAB 5 MG TAB PO SCH (09:08)
[2016-08-12] MEDS: FAMOTIDINE 20 MG TAB PO SCH ×2 (09:09→20:27)
[2016-08-12] MEDS: PAROXETINE 20 MG TAB PO SCH (09:09)
[2016-08-12] MEDS: GABAPENTIN 400 MG CAP PO SCH ×3 (09:09→20:27)
[2016-08-12] MEDS: BOOST VANILLA PO SCH ×2 (09:13)
[2016-08-12] MEDS: INSULIN ASPART 100 UNITS/ML 3 ML PEN SC SCH ×4 (09:40→20:23)
--- NOTE | 2016-08-12 14:00 | Psychiatric Progress Notes ---
Progress Note Date of Service Aug 12, 2016. Interval History 61 yo female initially admitted to the medical floor on 07/26/16 following an intentional overdose in a suicide attempt, moved to our unit on 07/29/16 On 07/31/16 she was moved moved back to medical with complaints of abd pain and hypotension. She was readmitted to [facility] on 08/02/16 Her depression has been persistent since having surgery on her back in the summer, secondary to complications including foot drop, ongoing lower extremity pain and impaired mobility. Chief Complaint "I'm hopeful that things will get better" Subjective Patient was seen & assessed interval progress reviewed with Treatment Team. Per staff, patient seems to be participating more in programming. Plan in place for possible discharge to [facility] on Sunday for physical therapy. She is reportedly appearing somewhat improved but still anxious him a tearful, and easily overwhelmed. On interview this morning, patient does express some increased hopefulness that she can regain some of her functional abilities through physical therapy, however, in discussing this she becomes quite tearful and laments her circumstances. She admits to recent suicidal ideation but does not perceive herself to be actively suicidal, however there is certainly a concern for decompensation possibility outside of a structured setting. She complains of redness at skin folds on stomach and requests topical for yeast infection which she has discussed with previous provider. Review of Systems Redness at skin folds Sleep Information Total Hours of Sleep: 7.75 Meal Information Percent of Breakfast Consumed: 90 Percent of Lunch Consumed: 100 Percent of Dinner Consumed: 80 Mental Status Exam During interview pt is: alert and oriented, cooperative Appearance: appropriately dressed, disheveled (tearful) Eye contact is: good Motor behavior is: no abnormal motor movements Speech: normal in rate, rhythm & volume Affect: depressed, anxious, constricted Mood is: depressed (but a little more hopeful), anxious Thought process: goal directed Thought content: preoccupation (on not being able to get around well), reality based without delusions Suicidal thought are: denied Homicidal thoughts are: denied Hallucinations: denies auditory, denies visual Cognition: memory grossly intact, attention grossly intact Intelligence estimated to be: average Insight: impaired Judgement: impaired Impression The patient remains severely depressed and tearful, feels overwhelmed by her physical conditions. Is more hopeful, however, that she is moving in the right direction and remains committed to working hard at rehab. Working towards discharge to [facility]. I'm informed that the facility will require an OT assessment first. Continued Inpatient Care The patient requires inpatient care due to the severity of her condition and the risk for another suicide attempt if discharged. Plan (1) Intractable low back pain Pain management saw her 07/27, and stated she is is not a candidate for interventional procedures, deferred repeat lumbar spine imaging to Dr. Cardoza, and recommended initiation of gabapentin 300 mg at bedtime progressing to t.i.d. over the next 3 days in an attempt to diminish neuropathic pain complaints. Did not recommend utilization of opiate therapy in this patient as she has significant risk of opioid misuse/abuse with recent history of intentional overdose of meloxicam as well as her comorbid medical conditions. Consider evaluation for her candidacy for inpatient rehabilitative process upon discharge should be considered. 08/03 - Will consult with Dr. Cardoza and Dr. Briggs re: ongoing pain and weakness/ foot drop - Increase neurontin to 400 mg. TID 08/04 and continuing - Collaborated with Dr. Cardoza and Dr. Briggs. Will proceed with active PT and consider rehab post discharge. - No evidence for autonomic dysregulation or evidence of Guillam [place] - Encourage progressive increase to activity - PT will see daily (?) 08/07/16 - Ask PT to work with her daily in preparation for referral to [facility], as her poor physical condition is her primary stressor (2) Lower extremity weakness 08/02 and continuing - PT consult and treat, likely to require inpatient rehab - Dr. Cardoza of orthopedics saw her today, appreciate recommendations - consider neurology consult for b/l EMG with nerve conduction study. Lumbar spine MRI today showed postsurgical changes at the L4-5 and L5-S1 levels, soft tissue surrounding the thecal sac and left L5 nerve root at the L4-5 level, and mild L5 nerve root edema. While nonspecific, the soft tissue likely represents postsurgical epidural fibrosis. - she remains on Sub Cut heparin 08/09/16 - Meeting held with [facility] and [facility] to address family's and facility's questions and concerns about her returning there. Referral made and she may be able to go there Sunday. 08/11 - Continue PT, strengthening exercises 08/12 - Working towards [facility] (3) Diabetes - Check glucose ACHS with insulin and sliding scale - Consult diabetic pharmacist for glucose control - Diabetic diet 08/12 - Will order topical anti-candidal tx at her request (4) Suicide attempt suicide checks for safety participate in groups and unit programming work on health coping skills and safety plan family meeting - held 08/09/16 (5) Major depressive disorder, recurrent episode, severe with anxious distress 08/02/16 - Retitrating Paxil (at 40mg since 07/31) and reintroducing Abilify ( 5mg daily) that seemed to work well as augmenting agent last hospitalization. Targets obsessive thinking and Abilify likely better from a glucose control standpoint. - She is very verbal re: her suicidal ideation and very aware of her needs re : medical assists, unable to tolerate roommate--[facility] given severity of SI and medical needs. - Encourage patient to be out of bed, showering and dressing daily, and attending groups. - Fasting labs ordered 08/03/16 for monitoring on an atypical antipsychotic. 08/05/16 -increase paxil to 50mg, and continue abilify 5mg/d and continue plan as above - encouraged her to focus on 3 daily things that she can control: PT exercises BID, eating, and taking her medications - will request visit from at [facility] as per discussion with patient 08/06/16 -She seems dizzy on increased paxil, which may also be amplification of her abilify or her remeron, will return paxil 40mg at patient's request and monitor - if dizziness persists consider reduction of remeron (limited efficacy as outpatient and goal to reduce polypharmacy) - continue abilify 5mg (amplified in vivo by paxil) encouraged her to get out of bed daily and attend groups to reduce amount of time ruminating in her mind 08/07/16 - present - Continue current meds. 08/11 - Continue meds - Confirm acceptance at [facility] for next week. 08/12 - Trend appears positive. Reviewed it may take several weeks to a few months to appreciate full benefit of antidepressant changes made in the hospital. Discharge / Aftercare Planning Primary Care Physician: Name: Dr Kerr Psychiatrist: Name: Dr Rios Date of Appointment: Aug 24, 2016 Time of Appointment: 10:00 Therapist: Name: Katiuska Heller Date of Appointment: Aug 22, 2016 Time of Appointment: 10:00 Visit Code E&M Code: 36263 Inventory Assets Strengths: supportive family, willingness to engage in treatment Risk Factors Assessment : Yes /single/: No Higher / Fall in social status: No Health problems: Yes Mental Health Diagnoses: Yes Substance use disorders: No Previous attempt: No Family history of suicide: No Previous psychiatric stay: Yes Hopelessness: Yes Protective Factors Assessment : Yes Responsible for young children: No Employed: No Stable relationships: Yes Supportive family: Yes Data Vital Signs Last 24 Hrs: Date Time Temp Pulse Resp B/P Pulse Ox O2 Delivery O2 Flow Rate FiO2 08/12/16 07:03 36.4 94 16 124/75 102 125/72 08/11/16 15:28 101 08/11/16 15:24 101 20 93/63 20 Meds Administered Last 24 Hrs: Meds Administered (Past 24Hrs) Medications (Trade) Dose Ordered Sig/Trevon Route Start Time Stop Time Status Last Admin Dose Admin Enteral Nutritional Formula (Boost) 1 can QDB PO 08/12/16 09:00 09/11/16 08:59 08/12/16 09:13 1 CAN Lab Results Last 24 Hrs: Last 24 Hours Test 08/11/16 16:10 08/11/16 20:28 08/12/16 07:39 08/12/16 12:25 Bedside Glucose 124 mg/dl 145 mg/dl 74 mg/dl 197 mg/dl
[2016-08-12] MEDS: INSULIN GLARGINE SOLOSTAR 100 UNITS/ML 3 ML PEN SC SCH (20:26)
[2016-08-12] MEDS: MIRTAZAPINE TAB 15 MG TAB PO SCH (20:27)
[2016-08-12] MEDS: CLOTRIMAZOLE 1% CR 15 GM TUBE EXT PRN (20:27)
[2016-08-13] MEDS: ACETAMINOPHEN 325 MG TAB PO PRN ×2 (06:42→21:05)
[2016-08-13 06:54] VITALS: BP 119/73; PULSE 99; TEMP 36.4
[2016-08-13] MEDS: LEVOTHYROXINE 125 MCG TAB PO SCH (08:16)
[2016-08-13] MEDS: FAMOTIDINE 20 MG TAB PO SCH ×2 (08:59→21:00)
[2016-08-13] MEDS: PAROXETINE 20 MG TAB PO SCH (08:59)
[2016-08-13] MEDS: OLMESARTAN MEDOXOMIL 5 MG TAB PO SCH (08:59)
[2016-08-13] MEDS: GABAPENTIN 400 MG CAP PO SCH ×3 (08:59→21:00)
[2016-08-13] MEDS: ARIPIprazole TAB 5 MG TAB PO SCH (08:59)
[2016-08-13] MEDS: BOOST VANILLA PO SCH ×2 (09:00)
[2016-08-13] MEDS: HEPARIN SOD 5000 UNIT/0.5 ML CARP SQ SCH ×2 (09:37→20:59)
[2016-08-13] MEDS: INSULIN ASPART 100 UNITS/ML 3 ML PEN SC SCH ×4 (09:37→21:01)
[2016-08-13] MEDS: CLOTRIMAZOLE 1% CR 15 GM TUBE EXT PRN (09:40)
--- NOTE | 2016-08-13 15:25 | Psychiatric Progress Notes ---
Progress Note Date of Service Aug 13, 2016. Interval History 61 yo female initially admitted to the medical floor on 07/26/16 following an intentional overdose in a suicide attempt, moved to our unit on 07/29/16 On 07/31/16 she was moved moved back to medical with complaints of abd pain and hypotension. She was readmitted to [facility] on 08/02/16 Her depression has been persistent since having surgery on her back in the summer, secondary to complications including foot drop, ongoing lower extremity pain and impaired mobility. Chief Complaint I'm nervous they're not going to take me Subjective Patient was seen & assessed interval progress reviewed with Treatment Team. No acute events overnight per staff. Attending groups. Seems more fatigued in the afternoons per staff. Does seem to be doing better with transfers following work with physical therapy which is encouraging to her. On interview, patient expresses eagerness to discharge to [facility]. anxiety remains high at times but she acknowledges need to allow for paxil some time to work. Denies SI and feeling a little lucas hopeful. She continues to c/o some difficulty sleeping and does not feel that the remeron has done much for her. Review of Systems Psychiatric: + anxiety, + depression symptoms, + insomnia Sleep Information Total Hours of Sleep: 8.00 Meal Information Percent of Breakfast Consumed: 100 Percent of Lunch Consumed: 100 Percent of Dinner Consumed: 100 Mental Status Exam During interview pt is: alert and oriented, cooperative Appearance: appropriately dressed, disheveled (less tearful) Eye contact is: good Motor behavior is: no abnormal motor movements Speech: normal in rate, rhythm & volume Affect: depressed, anxious, other (but more calm today) Mood is: depressed, anxious Thought process: goal directed Thought content: preoccupation, reality based without delusions Suicidal thought are: denied Homicidal thoughts are: denied Hallucinations: denies auditory, denies visual Cognition: memory grossly intact, attention grossly intact Intelligence estimated to be: average Insight: limited Judgement: limited Impression The patient remains severely depressed and tearful, feels overwhelmed by her physical conditions. Is more hopeful, however, that she is moving in the right direction and remains committed to working hard at rehab. Working towards discharge to [facility]. OT assessment has been completed to facilitate referral. Continued Inpatient Care The patient requires inpatient care due to the severity of her condition and the risk for another suicide attempt if discharged. Plan (1) Intractable low back pain Pain management saw her 07/27, and stated she is is not a candidate for interventional procedures, deferred repeat lumbar spine imaging to Dr. Cardoza, and recommended initiation of gabapentin 300 mg at bedtime progressing to t.i.d. over the next 3 days in an attempt to diminish neuropathic pain complaints. Did not recommend utilization of opiate therapy in this patient as she has significant risk of opioid misuse/abuse with recent history of intentional overdose of meloxicam as well as her comorbid medical conditions. Consider evaluation for her candidacy for inpatient rehabilitative process upon discharge should be considered. 08/03 - Will consult with Dr. Cardoza and Dr. Briggs re: ongoing pain and weakness/ foot drop - Increase neurontin to 400 mg. TID 08/04 and continuing - Collaborated with Dr. Cardoza and Dr. Briggs. Will proceed with active PT and consider rehab post discharge. - No evidence for autonomic dysregulation or evidence of Guillam [place] - Encourage progressive increase to activity - PT will see daily (?) 08/07/16 - Ask PT to work with her daily in preparation for referral to [facility], as her poor physical condition is her primary stressor (2) Lower extremity weakness 08/02 and continuing - PT consult and treat, likely to require inpatient rehab - Dr. Carodza of orthopedics saw her today, appreciate recommendations - consider neurology consult for b/l EMG with nerve conduction study. Lumbar spine MRI today showed postsurgical changes at the L4-5 and L5-S1 levels, soft tissue surrounding the thecal sac and left L5 nerve root at the L4-5 level, and mild L5 nerve root edema. While nonspecific, the soft tissue likely represents postsurgical epidural fibrosis. - she remains on Sub Cut heparin 08/09/16 - Meeting held with [facility] and [facility] to address family's and facility's questions and concerns about her returning there. Referral made and she may be able to go there Sunday. 08/11 - Continue PT, strengthening exercises 08/12 - Working towards [facility] (3) Diabetes - Check glucose ACHS with insulin and sliding scale - Consult diabetic pharmacist for glucose control - Diabetic diet 08/12 - Will order topical anti-candidal tx at her request (4) Suicide attempt suicide checks for safety participate in groups and unit programming work on health coping skills and safety plan family meeting - held 08/09/16 (5) Major depressive disorder, recurrent episode, severe with anxious distress 08/02/16 - Retitrating Paxil (at 40mg since 07/31) and reintroducing Abilify ( 5mg daily) that seemed to work well as augmenting agent last hospitalization. Targets obsessive thinking and Abilify likely better from a glucose control standpoint. - She is very verbal re: her suicidal ideation and very aware of her needs re : medical assists, unable to tolerate roommate--[facility] given severity of SI and medical needs. - Encourage patient to be out of bed, showering and dressing daily, and attending groups. - Fasting labs ordered 08/03/16 for monitoring on an atypical antipsychotic. 08/05/16 -increase paxil to 50mg, and continue abilify 5mg/d and continue plan as above - encouraged her to focus on 3 daily things that she can control: PT exercises BID, eating, and taking her medications - will request visit from at [facility] as per discussion with patient 08/06/16 -She seems dizzy on increased paxil, which may also be amplification of her abilify or her remeron, will return paxil 40mg at patient's request and monitor - if dizziness persists consider reduction of remeron (limited efficacy as outpatient and goal to reduce polypharmacy) - continue abilify 5mg (amplified in vivo by paxil) encouraged her to get out of bed daily and attend groups to reduce amount of time ruminating in her mind 08/07/16 - present - Continue current meds. 08/11 - Continue meds - Confirm acceptance at [facility] for next week. 08/12 - Trend appears positive. Reviewed it may take several weeks to a few months to appreciate full benefit of antidepressant changes made in the hospital. 08/13 - pt appearing eager for discharge to hospital for special surgery when accepted (possibly Sunday). denies SI today. working towards recovering functional abilities. discussed consideration for trazodone trial as alternative to remeron but she declined in effort to minimize new variables anticipating d/c upcoming. she did express interest in considering this in the near future and can review further with outpatient provider. Discharge / Aftercare Planning Primary Care Physician: Name: Dr Kerr Psychiatrist: Name: Dr Rios Date of Appointment: Aug 24, 2016 Time of Appointment: 10:00 Therapist: Name: Katiuska Heller Date of Appointment: Aug 22, 2016 Time of Appointment: 10:00 Visit Code E&M Code: 36147 Inventory Assets Strengths: supportive family, willingness to engage in treatment Risk Factors Assessment : Yes /single/: No Higher / Fall in social status: No Health problems: Yes Mental Health Diagnoses: Yes Substance use disorders: No Previous attempt: No Family history of suicide: No Previous psychiatric stay: Yes Hopelessness: Yes Protective Factors Assessment : Yes Responsible for young children: No Employed: No Stable relationships: Yes Supportive family: Yes Data Vital Signs Last 24 Hrs: Date Time Temp Pulse Resp B/P Pulse Ox O2 Delivery O2 Flow Rate FiO2 08/13/16 06:54 36.4 99 16 119/73 Meds Administered Last 24 Hrs: Meds Administered (Past 24Hrs) Medications (Trade) Dose Ordered Sig/Trevon Route Start Time Stop Time Status Last Admin Dose Admin Enteral Nutritional Formula (Boost) 1 can QDB PO 08/12/16 09:00 09/11/16 08:59 08/12/16 09:13 1 CAN Clotrimazole (Lotrimin 1% Crm) 1 appln BID PRN EXT 08/12/16 14:00 09/11/16 13:59 08/13/16 09:40 1 APPLN Lab Results Last 24 Hrs: Last 24 Hours Test 08/12/16 17:02 08/12/16 20:19 08/13/16 08:13 08/13/16 12:04 Bedside Glucose 115 mg/dl 108 mg/dl 83 mg/dl 112 mg/dl
[2016-08-13] MEDS: INSULIN GLARGINE SOLOSTAR 100 UNITS/ML 3 ML PEN SC SCH (20:57)
[2016-08-13] MEDS: MIRTAZAPINE TAB 15 MG TAB PO SCH (21:00)
[2016-08-14 06:57] VITALS: BP 110/70; PULSE 92; TEMP 36.4
[2016-08-14] MEDS: LEVOTHYROXINE 125 MCG TAB PO SCH (07:59)
[2016-08-14] MEDS: ARIPIprazole TAB 5 MG TAB PO SCH (09:00)
[2016-08-14] MEDS: BOOST VANILLA PO SCH ×2 (09:00)
[2016-08-14] MEDS: OLMESARTAN MEDOXOMIL 5 MG TAB PO SCH (09:00)
[2016-08-14] MEDS: FAMOTIDINE 20 MG TAB PO SCH ×2 (09:01→21:06)
[2016-08-14] MEDS: PAROXETINE 20 MG TAB PO SCH (09:01)
[2016-08-14] MEDS: GABAPENTIN 400 MG CAP PO SCH ×3 (09:01→21:06)
[2016-08-14] MEDS: INSULIN ASPART 100 UNITS/ML 3 ML PEN SC SCH ×4 (09:26→20:15)
[2016-08-14] MEDS: HEPARIN SOD 5000 UNIT/0.5 ML CARP SQ SCH ×2 (09:27→20:17)
[2016-08-14] MEDS: MAGNESIUM HYDROXIDE SUSP 30 ML UDC PO PRN ×2 (09:28→14:55)
[2016-08-14] MEDS: CLOTRIMAZOLE 1% CR 15 GM TUBE EXT PRN ×2 (10:06→20:19)
--- NOTE | 2016-08-14 12:52 | Psychiatric Progress Notes ---
Progress Note Date of Service Aug 14, 2016. Interval History 61 yo female initially admitted to the medical floor on 07/26/16 following an intentional overdose in a suicide attempt, moved to our unit on 07/29/16 On 07/31/16 she was moved moved back to medical with complaints of abd pain and hypotension. She was readmitted to [facility] on 08/02/16 Her depression has been persistent since having surgery on her back in the summer, secondary to complications including foot drop, ongoing lower extremity pain and impaired mobility. Chief Complaint "I had a major meltdown last night, but better today". Subjective Patient was seen & assessed interval progress reviewed with Treatment Team. Staff report she is going to most groups, and although she still gets overwhelmed and tearful at times, it is much improved from earlier in her admission. She was seen in her room today, and reports improved mood, stating she feels more hopeful that she will improve with inpatient PT. She describes " a meltdown" last evening where she was feeling acutely anxious about her health , worrying she "won't get better, won't be able to do it, won't be able to walk, " and was tearful and hopeless, with thoughts of suicide. Today she denies SI and says she is feeling more hopeful. She is anxious to hear when [facility]. She continues to have pain and says Tylenol helps. Sleep Information Total Hours of Sleep: 7.00 Meal Information Percent of Breakfast Consumed: 100 Percent of Lunch Consumed: 100 Percent of Dinner Consumed: 85 Mental Status Exam During interview pt is: alert and oriented, cooperative Appearance: appropriately dressed, disheveled, appeared stated age Eye contact is: fair Motor behavior is: no abnormal motor movements Speech: normal in rate, rhythm & volume Affect: depressed, anxious Mood is: depressed, anxious Thought process: goal directed Thought content: reality based without delusions Suicidal thought are: denied Homicidal thoughts are: denied Hallucinations: denies auditory, denies visual Cognition: memory grossly intact, attention grossly intact Intelligence estimated to be: average Insight: limited Judgement: limited Impression The patient remains severely depressed and tearful, feels overwhelmed by her physical conditions. Is more hopeful, however, that she is moving in the right direction and remains committed to working hard at rehab. Working towards discharge to [facility]. OT assessment has been completed to facilitate referral. Continued Inpatient Care The patient requires inpatient care due to the severity of her condition and the risk for another suicide attempt if discharged. Plan (1) Suicide attempt suicide checks for safety participate in groups and unit programming work on health coping skills and safety plan family meeting - held 08/09/16 (2) Major depressive disorder, recurrent episode, severe with anxious distress 08/02/16 - Retitrating Paxil (at 40mg since 07/31) and reintroducing Abilify ( 5mg daily) that seemed to work well as augmenting agent last hospitalization. Targets obsessive thinking and Abilify likely better from a glucose control standpoint. - She is very verbal re: her suicidal ideation and very aware of her needs re : medical assists, unable to tolerate roommate--[facility] given severity of SI and medical needs. - Encourage patient to be out of bed, showering and dressing daily, and attending groups. - Fasting labs ordered 08/03/16 for monitoring on an atypical antipsychotic. 08/05/16 -increase paxil to 50mg, and continue abilify 5mg/d and continue plan as above - encouraged her to focus on 3 daily things that she can control: PT exercises BID, eating, and taking her medications - will request visit from at [facility] as per discussion with patient 08/06/16 -She seems dizzy on increased paxil, which may also be amplification of her abilify or her remeron, will return paxil 40mg at patient's request and monitor - if dizziness persists consider reduction of remeron (limited efficacy as outpatient and goal to reduce polypharmacy) - continue abilify 5mg (amplified in vivo by paxil) encouraged her to get out of bed daily and attend groups to reduce amount of time ruminating in her mind 08/07/16 - present - Continue current meds. 08/11 - Continue meds - Confirm [facility] for [facility]. 08/12 - Trend appears positive. Reviewed it may take several weeks to a few months to appreciate full benefit of antidepressant changes made in the hospital. 08/13 - pt appearing eager for discharge to [facility] when accepted (possibly Sunday). denies SI today. working towards recovering functional abilities. discussed consideration for trazodone trial as alternative to remeron but she declined in effort to minimize new variables anticipating d/c upcoming. she did express interest in considering this in the near future and can review further with outpatient provider. 08/14 - Continue current meds, awaiting [facility] (3) Intractable low back pain Pain management saw her 07/27, and stated she is is not a candidate for interventional procedures, deferred repeat lumbar spine imaging to Dr. Cardoza, and recommended initiation of gabapentin 300 mg at bedtime progressing to t.i.d. over the next 3 days in an attempt to diminish neuropathic pain complaints. Did not recommend utilization of opiate therapy in this patient as she has significant risk of opioid misuse/abuse with recent history of intentional overdose of meloxicam as well as her comorbid medical conditions. Consider evaluation for her candidacy for inpatient rehabilitative process upon discharge should be considered. 08/03 - Will consult with Dr. Cardoza and Dr. Briggs re: ongoing pain and weakness/ foot drop - Increase neurontin to 400 mg. TID 08/04 and continuing - Collaborated with Dr. Cardoza and Dr. Briggs. Will proceed with active PT and consider rehab post discharge. - No evidence for autonomic dysregulation or evidence of [place] - Encourage progressive increase to activity - PT will see daily (week?) 08/07/16 - Ask PT to work with her daily in preparation for referral to [facility], as her poor physical condition is her primary stressor (4) Lower extremity weakness 08/02 and continuing - PT consult and treat, likely to require inpatient rehab - Dr. Cardoza of orthopedics saw her today, appreciate recommendations - consider neurology consult for b/l EMG with nerve conduction study. Lumbar spine MRI today showed postsurgical changes at the L4-5 and L5-S1 levels, soft tissue surrounding the thecal sac and left L5 nerve root at the L4-5 level, and mild L5 nerve root edema. While nonspecific, the soft tissue likely represents postsurgical epidural fibrosis. - she remains on Sub Cut heparin 08/09/16 - Meeting held with [facility] and [facility] to address family's and facility's questions and concerns about her returning there. Referral made and she may be able to go there Sunday. 08/11 - Continue PT, strengthening exercises 08/12 - Working towards [facility] (5) Diabetes - Check glucose ACHS with insulin and sliding scale - Consult diabetic pharmacist for glucose control - Diabetic diet 1/7 - Will order topical anti-candidal tx at her request Discharge / Aftercare Planning Primary Care Physician: Name: Dr Kerr Psychiatrist: Name: Dr Rios Date of Appointment: Aug 24, 2016 Time of Appointment: 10:00 Therapist: Name: Katiuska Highginette Date of Appointment: Aug 22, 2016 Time of Appointment: 10:00 Visit Code E&M Code: 65659 Inventory Assets Strengths: supportive family, willingness to engage in treatment Risk Factors Assessment : Yes /single/: No Higher / Fall in social status: No Health problems: Yes Mental Health Diagnoses: Yes Substance use disorders: No Previous attempt: No Family history of suicide: No Previous psychiatric stay: Yes Hopelessness: Yes Protective Factors Assessment : Yes Responsible for young children: No Employed: No Stable relationships: Yes Supportive family: Yes Data Vital Signs Last 24 Hrs: Date Time Temp Pulse Resp B/P Pulse Ox O2 Delivery O2 Flow Rate FiO2 08/14/16 06:57 36.4 92 16 110/70 Meds Administered Last 24 Hrs: Meds Administered (Past 24Hrs) Medications (Trade) Dose Ordered Sig/Trevon Route Start Time Stop Time Status Last Admin Dose Admin Clotrimazole (Lotrimin 1% Crm) 1 appln BID PRN EXT 08/12/16 14:00 09/11/16 13:59 08/14/16 10:06 1 APPLN Lab Results Last 24 Hrs: Last 24 Hours Test 08/13/16 17:08 08/13/16 20:36 08/14/16 08:05 08/14/16 08:27 Bedside Glucose 96 mg/dl 108 mg/dl 64 mg/dl 94 mg/dl
[2016-08-14] MEDS ORDERED: NRN400 PO (12:56)
[2016-08-14] MEDS ORDERED: Enteral Nutrition Formula PO (12:56)
[2016-08-14] MEDS ORDERED: INSDGIPEN SC (12:56)
--- NOTE | 2016-08-14 12:59 | Discharge Instructions ---
Discharge Information Report Includes Report will include the: Discharge Instructions & Summary Admission Admission Date / Time: Aug 02, 2016 at 13:20 Reason for Admission: Major Depressive Disordered Recurrent Discharge Discharge Diagnosis / Problem: Depression Condition at Discharge: Fair Discharge Goals Goal(s): Improve function, Improve disease control, Learn about illness, Therapeutic intervention, Specific goals (Refer to inpatient physical rehab) Activity Recommendations Activity Limitations: per Instructions/Follow-up section . Instructions / Follow-Up Instructions / Follow-Up . SPECIAL CARE INSTRUCTIONS: 1. Follow through with your scheduled aftercare appointments. If unable to keep an appointment, please call to reschedule. 2. Take your medication only as prescribed. Medication should not be changed or stopped without the approval of your doctor. In the event of worsening symptoms or concerns about side effects, contact your doctor immediately. 3. Utilize new healthy coping skills, anger management skills, and stress management skills learned during your hospitalization. Journal feelings and process them with a support person. Identify stressors or situations that may result in relapse, deterioration or inappropriate behaviors and develop a plan to deal with those issues. 4. If your coping skills are ineffective and you are in crisis, contact your outpatient providers for direction. If unable to reach your providers, please call the CAN HELP LINE AT or go to the closest Emergency Room. 5. Avoid alcohol and un-prescribed drugs. 6. You have been provided with the Mental Health Advance Directives Pamphlet for your review. AFTERCARE APPOINTMENTS: * Please call your insurance company prior to your scheduled appointment to confirm your aftercare providers are covered. Take your insurance information to your appointments. . Discharge / Aftercare Planning Primary Care Physician: Name: Dr Kerr Psychiatrist: Name: Dr Rios Date of Appointment: Aug 24, 2016 Time of Appointment: 10:00 Therapist: Name Of Therapist: Katiuska Heller Date of Appointment: Aug 22, 2016 Time of Appointment: 10:00 . Follow-Up Care Plan for Follow-Up Care: You are being transferred to [facility] for inpatient physical rehab. Please follow their instructions at discharge. Current Hospital Diet Patient's current hospital diet: Diabetes Type 2 Diet Discharge Diet Recommended Diet: Diabetes Type 2 Diet Procedures Procedures Performed: No Pending Studies Pending Studies at Discharge: No Medical Emergencies . Who to Call and When: Medical Emergencies: For questions or emergencies related to your hospital stay, please contact the Inpatient Behavioral Health Unit at [phone]. A garnett machine operator helper is on-call 26/02 for the Behavioral Health Unit for emergencies At any time you feel your situation is an emergency, you may also call 911 immediately. . Non-Emergent Contact Non-Emergency issues call your: Primary Care Provider, Psychiatrist Advance Directives Existing Advance Directive: Yes Do You Have an Existing Mental: No Existing Living Will: Yes Existing Power of Manager Deli: Yes The Person Making Decisions?: Lillie Corbin Discharge Summary Admission HPI Per the Admitting provider: Marimars mood has been worsening since leaving the hospital in May. She feels hopeless and helpless as her ambulation problems continue following a spinal surgery last summer with persistent foot drop. She has been depressed and this also contributes to perceived weakness and deconditioning, and PT recommended inpatient physical rehab when psychiatrically stable. She worries about falling constantly and feels guilty that she can't care for herself. She recently went on a trip to [place] with her grandchildren which was "horrible" as she was essentially wheel chair bound and continued to experience falls. She endorses negative thoughts about herself and ongoing SI. She ingested 6 pills of meloxicam to on 07/26/16, but then called 911 (not because she was sorry) but because she felt dizzy and nauseated. She wishes she succeeded and is distraught, thinking that her children have "written me off". She is frequently tearful and is requiring total care from nursing staff. She was started on Abilify here for augmentation (in place of Zyprexa, due to better side effect profile with respect to diabetes), restarted on Paxil, and gabapentin was started for pain. Today she says she is tired out from all of the medical procedures and going back and forth between this unit and the medical floor. Her mood is "not sure, pretty tired." She denies SI today, saying she has been distracted with her medical issues. She saw Dr. Cardoza today and had an MRI prior to coming back to the [facility]. She had some confusion about her medications, couldn't recall which meds had been stopped or started, so we reviewed those today. Admission Exam Per the Admitting provider: Please see admission H&P. Consultations Diabetic pharmacist Physical and occupational therapy Hospital Course (1) Suicide attempt suicide checks for safety participate in groups and unit programming work on health coping skills and safety plan family meeting - held 08/09/16 Consistently denying SI here, no self injurious behavior, and able to review her safety plan. Patient is sufficiently psychiatrically stable for transfer to [facility] for inpatient physical rehab. (2) Major depressive disorder, recurrent episode, severe with anxious distress 08/02/16 - Retitrating Paxil (at 40mg since 07/31) and reintroducing Abilify ( 5mg daily) that seemed to work well as augmenting agent last hospitalization. Targets obsessive thinking and Abilify likely better from a glucose control standpoint. - She is very verbal re: her suicidal ideation and very aware of her needs re : medical assists, unable to tolerate roommate--[facility] given severity of SI and medical needs. - Encourage patient to be out of bed, showering and dressing daily, and attending groups. - Fasting labs ordered 08/03/16 for monitoring on an atypical antipsychotic. 08/05/16 -increase paxil to 50mg, and continue abilify 5mg/d and continue plan as above - encouraged her to focus on 3 daily things that she can control: PT exercises BID, eating, and taking her medications - will request visit from at [facility] as per discussion with patient 08/06/16 -She seems dizzy on increased paxil, which may also be amplification of her abilify or her remeron, will return paxil 40mg at patient's request and monitor - if dizziness persists consider reduction of remeron (limited efficacy as outpatient and goal to reduce polypharmacy) - continue abilify 5mg (amplified in vivo by paxil) encouraged her to get out of bed daily and attend groups to reduce amount of time ruminating in her mind 08/07/16 - present - Continue current meds. 08/11 - Continue meds - Confirm acceptance at [facility] for next week. 08/12 - Trend appears positive. Reviewed it may take several weeks to a few months to appreciate full benefit of antidepressant changes made in the hospital. 08/13 - pt appearing eager for discharge to [facility] when accepted (possibly Sunday). denies SI today. working towards recovering functional abilities. discussed consideration for trazodone trial as alternative to remeron but she declined in effort to minimize new variables anticipating d/c upcoming. she did express interest in considering this in the near future and can review further with outpatient provider. 08/14 - 08/15 - Continue current meds, awaiting transfer to [facility] - Follow up with outpatient psychiatrist (Dr. Rios at [facility]), therapist (Katiuska Heller) after discharge from [facility]. (3) Intractable low back pain Pain management saw her 07/27, and stated she is is not a candidate for interventional procedures, deferred repeat lumbar spine imaging to Dr. aCrdoza, and recommended initiation of gabapentin 300 mg at bedtime progressing to t.i.d. over the next 3 days in an attempt to diminish neuropathic pain complaints. Did not recommend utilization of opiate therapy in this patient as she has significant risk of opioid misuse/abuse with recent history of intentional overdose of meloxicam as well as her comorbid medical conditions. Consider evaluation for her candidacy for inpatient rehabilitative process upon discharge should be considered. 08/03 - Will consult with Dr. Cardoza and Dr. Briggs re: ongoing pain and weakness/ foot drop - Increase neurontin to 400 mg. TID 08/04 and continuing - Collaborated with Dr. Cardoza and Dr. Briggs. Will proceed with active PT and consider rehab post discharge. - No evidence for autonomic dysregulation or evidence of [place] - Encourage progressive increase to activity - PT will see daily (?) 08/07/16 - Ask PT to work with her daily in preparation for referral to [facility], as her poor physical condition is her primary stressor (4) Lower extremity weakness 08/02 and continuing - PT consult and treat, likely to require inpatient rehab - Dr. Cardoza of orthopedics saw her today, appreciate recommendations - consider neurology consult for b/l EMG with nerve conduction study. Lumbar spine MRI today showed postsurgical changes at the L4-5 and L5-S1 levels, soft tissue surrounding the thecal sac and left L5 nerve root at the L4-5 level, and mild L5 nerve root edema. While nonspecific, the soft tissue likely represents postsurgical epidural fibrosis. - she remains on Sub Cut heparin 08/09/16 - Meeting held with family and [facility] rep to address family's and facility's questions and concerns about her returning there. Referral made and she may be able to go there Sunday. 08/11 - Continue PT, strengthening exercises 08/15 - Transfer to [facility] for inpatient PT (5) Diabetes - Check glucose ACHS with insulin and sliding scale - Consult diabetic pharmacist for glucose control - Diabetic diet 08/12 - Will order topical anti-candidal tx at her request 08/15 - Continue current regimen for blood sugar control. - Follow up with outpatient physician after treatment at [facility] completed. Risk Factors Assessment : Yes /single/: No Higher / Fall in social status: No Access to guns: No Health problems: Yes Mental Health Diagnoses: Yes Substance use disorders: No Previous attempt: No Family history of suicide: No Previous psychiatric stay: Yes Hopelessness: Yes Smoker: No Protective Factors Assessment : Yes Responsible for young children: No Employed: No Stable relationships: Yes Supportive family: Yes Day of Discharge Assessment Hospital course: Patient had a prolonged hospital stay. She initially presented to the emergency room 07/26/2016 after an intentional overdose on meloxicam in a suicide attempt. She is known to our service from multiple medical hospitalizations and previous psychiatric hospitalization in April 2016. She was admitted to the hospitalist service for treatment of her overdose on , and was medically cleared and transferred to the behavioral health unit voluntarily on 07/29/2016. She was transferred back to the medical service on 07/31/2016 after she developed chest pain and was found to be hypertensive and tachycardic. She was again medically stabilized, and transferred back to the behavioral health unit on 08/02/2016. During her course of psychiatric treatment here, she was switched from olanzapine to aripiprazole for treatment of depression, as aripiprazole has a better side effect profile with respect to metabolic syndrome, and she already has poorly controlled diabetes. She was restarted on paroxetine and gabapentin was started for pain. She was seen by Shadi LOBO of the pain management service on 07/27/2016 while on the medical floor, and he recommended deferment of repeat lumbar spine imaging to Dr. Cardoza, her surgeon, and initiation of gabapentin for neuropathic pain. He stated she was not a candidate for interventional procedures, and recommended avoiding opiates due to risk of opiate misuse, abuse, or overdose. She was seen by orthopedics, Dr. Cardoza, when on the medical service 08/02/2016, who reviewed lumbar spine x-rays and MRI , and stated nothing on her current imaging explained progressive weakness. He recommended consideration of a neurological consult for bilateral lower extremity EMG and nerve conduction study, and stated there was no indication for surgical intervention. While on our unit, the patient was continued on gabapentin, which was increased to 400 mg 3 times a day. PT and OT were consult hadn't worked with her in the hospital, and recommended inpatient rehabilitation once psychiatrically stabilized. Paroxetine and Abilify were continued, the patient was encouraged to attend and participate in groups and therapy on the unit. Suicidal ideation resolved, and she was able to work on behavioral techniques for managing anxiety and healthy coping skills. She was able to work on her safety plan, and consistently denied suicidality during her stay. She did not engage in self-injurious behavior, was calm and cooperative, and was not aggressive or threatening. On 08/09/2016, a meeting was held with the patient, her family, the medical social worker, and a financial representative from [facility] in order to address the patient and family's concerns as well as the facilities questions and concerns due to her history of difficulties with treatment there in the past. The patient and her family wished to proceed with a referral, and she was accepted for treatment at [facility]. The diabetic pharmacist was consulted and made adjustments to her insulin regimen. Her outpatient psychiatrist and therapist were contacted and follow-up was scheduled with them. The patient demonstrated improvement in her mood and anxiety, as well as improvement in strength and abilities to do her ADLs with less staff assistance throughout the course of her stay. Day of discharge assessment: The patient was seen in her room. She states that her mood is "good," and feels ready to go to [facility] to begin physical therapy treatment. She denies thoughts of harming herself or anyone else. She is able to review her discharge safety plan. She is willing to follow-up with outpatient providers, and states she has good support from her family and boyfriend. She reports good sleep and appetite. Well nourished, well developed WF appearing stated age. Casually dressed and adequately groomed. Calm and cooperative. Seated in NAD, with fair eye contact and no abnormal movements. Speech is normal rate, volume, and tone. Mood is "good," and affect is depressed but reactive, appropriate, stable and congruent. Thoughts are linear, logical and goal directed. The patient denied suicidal and homicidal ideation and was able to review her safety plan. No paranoia, delusions, or hallucinations, and did not appear to be responding to internal stimuli. Cognition was grossly intact. Alert and oriented to person, place and time. Intelligence is consistent with level of education. Insight and and judgment are fair. Laboratory Refer to printed laboratory reports Total Time Total Time Spent (min): Greater than 30 minutes Total Time Included: examination of the patient, discharge planning, medication reconciliation, communication with other providers Tobacco Cessation at Discharge FDA approved Prescription: non-smoker
[2016-08-14] MEDS: ACETAMINOPHEN 325 MG TAB PO PRN (17:29)
[2016-08-14] MEDS: INSULIN GLARGINE SOLOSTAR 100 UNITS/ML 3 ML PEN SC SCH (20:18)
[2016-08-14] MEDS: MIRTAZAPINE TAB 15 MG TAB PO SCH (21:06)
[2016-08-15 06:49] VITALS: BP_SYST 114; BP_SYST 132; BP_DIAS 77; BP_DIAS 80; PULSE 101; PULSE 105; TEMP 36.4
[2016-08-15] MEDS: ARIPIprazole TAB 5 MG TAB PO SCH (09:00)
[2016-08-15] MEDS: BOOST VANILLA PO SCH ×2 (09:00)
[2016-08-15] MEDS: OLMESARTAN MEDOXOMIL 5 MG TAB PO SCH (09:44)
[2016-08-15] MEDS: LEVOTHYROXINE 125 MCG TAB PO SCH (09:44)
[2016-08-15] MEDS: GABAPENTIN 400 MG CAP PO SCH ×3 (09:44→21:02)
[2016-08-15] MEDS: FAMOTIDINE 20 MG TAB PO SCH ×2 (09:44→21:02)
[2016-08-15] MEDS: PAROXETINE 20 MG TAB PO SCH (09:44)
[2016-08-15] MEDS: HEPARIN SOD 5000 UNIT/0.5 ML CARP SQ SCH ×2 (09:50→20:41)
[2016-08-15] MEDS: INSULIN ASPART 100 UNITS/ML 3 ML PEN SC SCH ×4 (09:58→20:43)
[2016-08-15 14:57] VITALS: Ht 160 cm; Wt 66.0 kg
[2016-08-15] MEDS: ACETAMINOPHEN 325 MG TAB PO PRN (19:54)
[2016-08-15] MEDS: INSULIN GLARGINE SOLOSTAR 100 UNITS/ML 3 ML PEN SC SCH (20:42)
[2016-08-15] MEDS: MIRTAZAPINE TAB 15 MG TAB PO SCH (21:02)
[2016-08-15] MEDS: CLOTRIMAZOLE 1% CR 15 GM TUBE EXT PRN (21:02)
[2016-08-16 06:47] VITALS: BP_SYST 124; BP_SYST 133; BP_DIAS 77; BP_DIAS 82; PULSE 90; PULSE 98; TEMP 36.9
[2016-08-16] MEDS: FAMOTIDINE 20 MG TAB PO SCH (09:15)
[2016-08-16] MEDS: LEVOTHYROXINE 125 MCG TAB PO SCH (09:15)
[2016-08-16] MEDS: ARIPIprazole TAB 5 MG TAB PO SCH (09:15)
[2016-08-16] MEDS: GABAPENTIN 400 MG CAP PO SCH (09:15)
[2016-08-16] MEDS: OLMESARTAN MEDOXOMIL 5 MG TAB PO SCH (09:15)
--- NOTE | 2016-08-16 09:15 | Psychiatric Progress Notes ---
Psychiatric Progress Note Date of Service Aug 16, 2016. Notes DAY OF DISCHARGE ASSESSMENT: The patient has been accepted to [facility] today and her daughter will provide transportation. Codi remains anxious about the process of rehab and getting better, but is committed to it. She denies SI/HI. Today she is still in bed at the time of the interview, but easily aroused to verbal. She makes appropriate eye contact. Affect is restricted but able to smile. Speech is of normal rate, volume and tone. thoughts are organized and goal directed, without evidence of thought disorder. Recent/remote memory is intact per conversation. Intelligence is estimated to be average. Insight and judgement are improved over admission. Discharge instructions and summary completed yesterday in anticipation of discharge and remain accurate.
[2016-08-16] MEDS: PAROXETINE 20 MG TAB PO SCH (09:16)
[2016-08-16] MEDS: HEPARIN SOD 5000 UNIT/0.5 ML CARP SQ SCH (09:16)
[2016-08-16] MEDS: BOOST VANILLA PO SCH ×2 (09:26)
[2016-08-16] MEDS: INSULIN ASPART 100 UNITS/ML 3 ML PEN SC SCH ×2 (09:42→12:00)
[2016-08-16 10:24] VITALS: BP 124/82; PULSE 90; TEMP 36.9
== END 2016-08-16 13:28 | DRG 885 ==
LOC: C.MHU 13:20
PROVIDERS: ADMIT Psychiatry & Neurology Psychiatry; ATTEND Psychiatry & Neurology Psychiatry
DX: F33.2 Major depressive disorder, recurrent severe without psychotic features (principal); R45.851 Suicidal ideations; T39.392A Poisoning by other nonsteroidal anti-inflammatory drugs [NSAID], intentional self-harm, initial encounter; F41.9 Anxiety disorder, unspecified; E66.9 Obesity, unspecified; E78.5 Hyperlipidemia, unspecified; E11.9 Type 2 diabetes mellitus without complications; M21.379 Foot drop, unspecified foot; I10 Essential (primary) hypertension; M51.26 Other intervertebral disc displacement, lumbar region; M62.81 Muscle weakness (generalized); G47.00 Insomnia, unspecified; Z91.81 History of falling; Z79.4 Long term (current) use of insulin; Z79.899 Other long term (current) drug therapy; Z79.01 Long term (current) use of anticoagulants; X58.XXXA Exposure to other specified factors, initial encounter

== ENCOUNTER 2016-09-11 12:32 | Emergency (ER) | payer BC, OTHER ==
[~2016-09-11] VITALS: Ht 160 cm; Wt 64.3 kg
[~2016-09-11 12:32] MED LIST changes: +Enteral Nutrition Formula PO; -NRN300 PO; +NRN400 PO; -NVLGI/PEN SQ
[2016-09-11 12:33] VITALS: TEMP 36.4; Ht 160 cm; Wt 64.3 kg
--- NOTE | 2016-09-11 13:21 | DIAGNOSTIC IMAGING REPORT ---
AP CHEST WITH ABDOMINAL SERIES CLINICAL HISTORY: Generalized abdominal pain. Constipation. FINDINGS: An AP upright chest radiograph is compared to study dated 02/01/2016 and correlated with chest CT dated 07/31/2016. The examination is significant degraded by patient rotation. The cardiomediastinal silhouette is unremarkable. The lungs and pleural spaces are clear. No pneumothorax is seen. The skeletal structures are osteopenic. The bony thorax is grossly intact. Supine and decubitus abdominal radiographs are obtained. Correlation is made with abdominal CT dated 07/31/2016. There is a nonobstructed abdominal bowel gas pattern. No evidence of intraperitoneal free air is seen on the decubitus view. Moderate colonic fecal retention is observed. A coarse calcification is again noted in the right mid back, projecting at the transverse process of L2. There is no radiographic evidence of nephrolithiasis. Indeterminant densities project over the right hemipelvis and a reportedly related to the patient's clothing. There is evidence of previous lumbar spinal fusion. The bony pelvis appears intact. IMPRESSION: 1. No active disease in the chest. 2. Nonobstructed abdominal bowel gas pattern noting moderate constipation. Electronically signed by: Bright Cruz M.D. 09/11/2016 1:20 PM Dictated Date/Time: 09/11/2016 1:16 PM
[2016-09-11] MEDS ORDERED: ACET325T96 PO (13:31)
[2016-09-11 16:05] VITALS: BP 118/83; PULSE 107; O2SAT 96
--- NOTE | 2016-09-11 19:10 | EMERGENCY ROOM VISIT NOTE ---
History Report prepared by Zaria: Frieda Daley Under the Supervision of: Dr. Medardo Rendon M.D. First contact with patient: 12:36 Chief Complaint: ABDOMINAL PAIN Stated Complaint: abd pain Nursing Triage Summary: Recent back surgery in January, from [facility] (there for rehab). Pt reports constipation x1 week. Given supp this AM with little relief. Pt with abd pain. History of Present Illness The patient is a 61 year old female who presents to the Emergency Room with complaints of worsening lower abdominal pain over the past several days. She also complains of nausea and rectal pain. The patient notes that she has not had a bowel movement in a week. She tried to use a suppository this morning without any relief. She takes Senokot daily. The patient had one other episode of similar constipation about 3 weeks to a month ago. She had relief of her constipation after being disimpacted and receiving an enema at [facility]. The patient is currently in [facility] because of back surgery. Denies vomiting, urinary symptoms, or other complaints. She is not on pain medications. Source of History: patient Onset: several days ago Position: abdomen (lower) Timing: worsening Associated Symptoms: + nausea, No urinary symptoms, No vomiting Note: Other symptoms: rectal pain, constipation Review of Systems See HPI for pertinent positives & negatives. A total of 10 systems reviewed and were otherwise negative. Past Medical & Surgical Medical Problems: (1) Acute gastritis (2) Altered mental status (3) Diabetes (4) DKA (diabetic ketoacidoses) (5) Dyslipidemia (6) HNP (herniated nucleus pulposus), lumbar (7) Hypertension (8) Hypokalemia (9) Hypotension (10) Intractable low back pain (11) Lower extremity weakness (12) Lumbar stenosis with neurogenic claudication (13) past psych meds (14) Past Psychiatric Medications (15) Tachycardia Surgical Problems: (1) H/O cardiac catheterization (2) History of hysterectomy Family History Patient reports no known family medical history. Social History Smoking Status: Never Smoker Drug Use: none Marital Status: Housing Status: lives with family Occupation Status: employed Current/Historical Medications Scheduled Aripiprazole (Abilify), 5 MG PO QAM Famotidine (Famotidine), 20 MG PO BID Gabapentin (Gabapentin), 400 MG PO TID Insulin Aspart (Novolog Flexpen), 0 UNITS SC ACHS Insulin Glargine (Lantus Solostar), 45 UNIT SC DAILY@2000 Levothyroxine Sodium (Synthroid), 125 MCG PO DAILY Mirtazapine (Mirtazapine), 30 MG PO HS Olmesartan Medoxomil (Benicar), 5 MG PO DAILY Paroxetine (Paroxetine HCl), 40 MG PO QAM Miscellaneous Medications Acetaminophen Tab (Tylenol), 325 MG PO Allergies Coded Allergies: Cisapride (Verified Allergy, Intermediate, HIVES, 07/26/16) Doxycycline (Verified Allergy, Intermediate, RASH, 07/26/16) Lansoprazole (Verified Allergy, Intermediate, HIVES, 07/26/16) Tetracycline (Verified Allergy, Mild, DOXYCYCLINE CAUSES RASH, 07/26/16) Physical Exam Vital Signs Date Time Temp Pulse Resp B/P Pulse Ox O2 Delivery O2 Flow Rate FiO2 09/11/16 16:05 107 19 118/83 96 09/11/16 13:09 89 16 118/87 100 Room Air 09/11/16 12:33 36.4 100 22 132/87 100 Room Air Physical Exam Constitutional: Vital signs reviewed. Eyes: Pupils are equal round reactive to light. Conjunctiva are noninjected. ENT: Pharynx is clear without erythema or exudate. Mucous membranes are moist. Neck supple without meningeal signs. Respiratory: Clear to auscultation bilaterally. Breath sounds are equal bilaterally. Cardiovascular: Regular rate and rhythm. No rubs or gallops. GI: Soft, nondistended, suprapubic tenderness. No guarding. Bowel sounds are present. Musculoskeletal: No peripheral edema. Integumentary: No cyanosis. Neurological: The patient is awake and alert. No focal deficits. Psychiatric: Anxious and tearful affect. Medical Decision & Procedures ER Provider Diagnostic Interpretation: X-ray results as stated below per interpretation by me and the radiologist: AP CHEST WITH ABDOMINAL SERIES CLINICAL HISTORY: Generalized abdominal pain. Constipation. FINDINGS: An AP upright chest radiograph is compared to study dated 02/01/2016 and correlated with chest CT dated 07/31/2016. The examination is significant degraded by patient rotation. The cardiomediastinal silhouette is unremarkable. The lungs and pleural spaces are clear. No pneumothorax is seen. The skeletal structures are osteopenic. The bony thorax is grossly intact. Supine and decubitus abdominal radiographs are obtained. Correlation is made with abdominal CT dated 07/31/2016. There is a nonobstructed abdominal bowel gas pattern. No evidence of intraperitoneal free air is seen on the decubitus view. Moderate colonic fecal retention is observed. A coarse calcification is again noted in the right mid back, projecting at the transverse process of L2. There is no radiographic evidence of nephrolithiasis. Indeterminant densities project over the right hemipelvis and a reportedly related to the patient's clothing. There is evidence of previous lumbar spinal fusion. The bony pelvis appears intact. IMPRESSION: 1. No active disease in the chest. 2. Nonobstructed abdominal bowel gas pattern noting moderate constipation. Electronically signed by: Bright Cruz M.D. 09/11/2016 1:20 PM Dictated Date/Time: 09/11/2016 1:16 PM ED Course 1240: The patient was evaluated in room B7. A complete history and physical exam was performed. 1339: I reassessed the patient. She is more comfortable now. I discussed the x- ray results with her. She will get a soap suds enema. 1500: I reassessed the patient. She had a large bowel movement and no longer has any abdominal pain. She will be discharged home. Medical Decision This is a 61-year-old female presents with lower abdominal pain. Differential diagnosis includes fecal impaction, constipation, bowel obstruction, perforation. I did perform a limited focused review of portions of the patient' s old chart on the electronic medical record. The patient has had no recent pertinent visits to this hospital. I did evaluate the patient as noted above. The patient is presenting with rectal and lower abdominal pain. She states that she had similar symptoms about a month ago when she was severely constipated secondary to fecal impaction. She is not on narcotics and does not know why she gets constipated. She is tearful and tender in the suprapubic region. I did order and personally review the patient's abdominal and chest x-rays as described above. There is no evidence of free air or obstruction. I did discuss the test results with the patient. She does appear somewhat more comfortable at this time. I did recommend a soapsuds enema. The enema was performed by the nurse. The patient did have a large bowel movement. I did reassess her again. She is feeling much better and is very comfortable at this time. She has no complaints and has no tenderness on examination. I did recommend she follow up with her doctor. She was advised to continue her stool softeners and use MiraLAX as needed. She was discharged in good condition. Impression Primary Impression: Fecal impaction Additional Impression: Constipation Scribe Attestation The scribe's documentation has been prepared under my direct and personally reviewed by me in its entirety. I confirm that the note above accurately reflects all work, treatment, procedures, and medical decision making performed by me. Departure Information Dispostion Home / Self-Care Referrals Andry Kerr M.D. (PCP) Patient Instructions Constipation, My [facility] Additional Instructions You have been examined and treated today on an emergency basis only. This is not a substitute for, or an effort to provide, complete comprehensive medical care. It is impossible to recognize and treat all injuries or illnesses in a single emergency department visit. It is therefore important that you follow up closely with your physician. Call as soon as possible for an appointment. Return for worsening symptoms or if you develop fever, vomiting, or any other concerning symptoms. Problem Qualifiers Additional Impression: Constipation Constipation type: unspecified constipation type Qualified Codes: K59.00 - Constipation, unspecified
== END 2016-09-11 16:05 | disposition home or self-care (01) ==
LOC: EDBD 12:32 → C.EDB 12:33
DX: K59.00 Constipation, unspecified (principal); K29.70 Gastritis, unspecified, without bleeding; E11.9 Type 2 diabetes mellitus without complications; E78.5 Hyperlipidemia, unspecified; I10 Essential (primary) hypertension; E87.6 Hypokalemia; Z79.4 Long term (current) use of insulin; Z79.899 Other long term (current) drug therapy

== ENCOUNTER → 2016-12-12 | Outpatient (CLI) | payer BC, OTHER ==
[~2016-12-12] MED LIST changes: +ACET325T96 PO; -Enteral Nutrition Formula PO; -HPRIS5M SQ
[2016-12-12 08:04] LABS: COMPLETE YES; EOS % 1.6 %; HEMATOCRIT 41.9 % (37-47); IG% 0.1 %; LYMPH % 48.9 %; LYMPH ABS # 3.44 K/uL (1.2-3.4); MEAN CELL VOLUME 91.7 fL (80-100); MEAN CORPUSCULAR HEMOGLOBIN 31.5 pg (25-34); MEAN CORPUSCULAR HGB CONC 34.4 g/dl (32-36); MEAN PLATELET VOLUME 9.8 fL (7.4-10.4); MONO % 7.7 %; NEUT % 41.7 %; PLATELET COUNT 270 K/uL (130-400); RED BLOOD COUNT 4.57 M/uL (4.2-5.4); WHITE BLOOD COUNT 7.04 K/uL (4.8-10.8)
[2016-12-12 08:17] LABS: ALT/SGPT 29 U/L (12-78); AST/SGOT 19 U/L (15-37); BLOOD UREA NITROGEN 15 mg/dl (7-18); CARBON DIOXIDE 29 mmol/L (21-32); CHLORIDE 106 mmol/L (98-107); CHOLESTEROL 179 mg/dl (0-200); GLUCOSE 94 mg/dl (70-99); POTASSIUM 3.9 mmol/L (3.5-5.1); SODIUM 142 mmol/L (136-145); TRIGLYCERIDES 174 mg/dl (0-150); VERY LOW DENSITY LIPOPROT CALC 35 mg/dl
[2016-12-12 08:26] LABS: ALKALINE PHOSPHATASE 59 U/L (45-117); CHOLESTEROL/HDL RATIO 3.9; HDL CHOLESTEROL 46 mg/dl; LDL CHOLESTEROL CALCULATED 98 mg/dl
[2016-12-12 08:49] LABS: ESTIMATED AVERAGE GLUCOSE 117 mg/dl; HA1C FLAG Normal (Normal)
[2016-12-12 08:51] LABS: CALCIUM 9.7 mg/dl (8.5-10.1)
== END ==
LOC: C.LABCC 07:40
PROVIDERS: ATTEND Internal Medicine
DX: E11.9 Type 2 diabetes mellitus without complications (principal); I10 Essential (primary) hypertension; E55.9 Vitamin D deficiency, unspecified; R53.1 Weakness; E78.5 Hyperlipidemia, unspecified

== ENCOUNTER → 2017-03-23 | Outpatient (CLI) | payer BC, OTHER ==
[2017-03-23 08:44] LABS: THYROID STIMULATING HORMONE 3.39 uIu/ml (0.300-4.500)
[2017-03-23 10:00] LABS: LYME DISEASE AB IGG NEG (NEG); LYME DISEASE AB IGM NEG (NEG)
[2017-03-24 01:20] LABS: RAPID PLASMA REAGIN NONREACTIVE (NONREACT)
== END ==
LOC: C.LABCC 07:53
PROVIDERS: ATTEND Psychiatry & Neurology Neurology
DX: E11.42 Type 2 diabetes mellitus with diabetic polyneuropathy (principal)

== ENCOUNTER → 2017-04-04 | Outpatient (CLI) | payer BC, OTHER ==
--- NOTE | 2017-04-04 16:29 | MAMMOGRAPHY REPORT ---
BILATERAL DIGITAL SCREENING MAMMOGRAM TOMOSYNTHESIS WITH CAD: 04/04/2017 TECHNIQUE: Breast tomosynthesis in addition to standard 2D mammography was performed. Current study was also evaluated with a Computer Aided Detection (CAD) system. COMPARISON: Comparison is made to exams dated: 09/20/2015 mammogram, 09/18/2014 mammogram, 07/25/2012 mammogram, 07/29/2013 mammogram, 03/21/2011 mammogram, and 03/11/2010 mammogram - [facility]. BREAST COMPOSITION: There are scattered areas of fibroglandular density in both breasts. FINDINGS: No suspicious masses, calcifications, or areas of architectural distortion are noted in ei ther breast. There has been no significant interval change compared to prior exams. Grouped calcific ations in the left 12:00 breast with an associated biopsy marker clip are not significantly changed. Other scattered bilateral benign-appearing calcifications are not significantly changed. IMPRESSION: ACR BI-RADS CATEGORY 2: BENIGN There is no mammographic evidence of malignancy. A 1 year screening mammogram is recommended. The pa tient will receive written notification of the results. Approximately 10% of breast cancers are not detected with mammography. A negative mammographic report should not delay biopsy if a clinically suggestive mass is present. Vira Rodriguez M.D. ah/:04/04/2017 14:48:15 Attending Technologist: Kindra Fuentes RT(R)(M), [facility] Position Classification Manager: Valeria Ramirez RT(R)(M), [facility] letter sent: Normal 1/2 BI-RADS Code: ACR BI-RADS Category 2: Benign
== END | disposition home or self-care (01) ==
LOC: C.MAMM 13:23
PROVIDERS: ATTEND Internal Medicine
DX: Z12.31 Encounter for screening mammogram for malignant neoplasm of breast (principal)

== ENCOUNTER → 2017-05-15 | Outpatient (CLI) | payer BC, OTHER ==
[2017-05-15 09:05] LABS: ALB/GLOB RATIO 0.8 (0.9-2); ALT/SGPT 48 U/L (12-78); AST/SGOT 38 U/L (15-37); BLOOD UREA NITROGEN 20 mg/dl (7-18); BUN/CREATININE RATIO 46.1 (10-20); CALCIUM 9.1 mg/dl (8.5-10.1); CARBON DIOXIDE 29 mmol/L (21-32); CHLORIDE 108 mmol/L (98-107); CHOLESTEROL 174 mg/dl (0-200); CREATININE 0.44 mg/dl (0.60-1.20); GLUCOSE 66 mg/dl (70-99); POTASSIUM 3.9 mmol/L (3.5-5.1); SODIUM 143 mmol/L (136-145); TRIGLYCERIDES 246 mg/dl (0-150); VERY LOW DENSITY LIPOPROT CALC 49 mg/dl
[2017-05-15 09:15] LABS: ALKALINE PHOSPHATASE 80 U/L (45-117); CHOLESTEROL/HDL RATIO 3.9; HDL CHOLESTEROL 45 mg/dl; LDL CHOLESTEROL CALCULATED 80 mg/dl
[2017-05-15 09:17] LABS: ESTIMATED AVERAGE GLUCOSE 123 mg/dl; HA1C FLAG Normal (Normal)
== END ==
LOC: C.LABCC 08:34
PROVIDERS: ATTEND Internal Medicine
DX: E78.5 Hyperlipidemia, unspecified (principal)

== ENCOUNTER 2017-09-09 18:14 | Emergency (ER) | payer OTHER ==
[~2017-09-09] VITALS: Ht 160 cm; Wt 70.0 kg
[2017-09-09 18:17] VITALS: TEMP 36.6; Ht 160 cm; Wt 70.0 kg
[2017-09-09] MEDS ORDERED: GABA-112 PO (18:45)
[2017-09-09] MEDS ORDERED: SOAP SUDS ENEMA PR ONE (18:45)
[2017-09-09] MEDS ORDERED: PARO1TAB29 PO (18:45)
[2017-09-09] MEDS ORDERED: MIRT30TA2 PO (18:45)
[2017-09-09] MEDS ORDERED: INSDGIPEN SC (18:45)
[2017-09-09] MEDS ORDERED: ABL/5 PO (18:45)
[2017-09-09] MEDS ORDERED: NVLGI/PEN SC (18:45)
[2017-09-09] MEDS ORDERED: FAMO20TA11 PO (18:45)
--- NOTE | 2017-09-09 20:40 | EMERGENCY ROOM VISIT NOTE ---
History Report prepared by Zaria: Brad Hankins Under the Supervision of: Dr. Feliciano Castillo D.O. First contact with patient: 18:21 Chief Complaint: CONSTIPATION Stated Complaint: CONSTIPATION Nursing Triage Summary: "I'm bound up and I think I'm impacted and I can't go." Abdominal pain 9/10. Last BM one week ago. Pt used suppitositories and fleets enema otc without relief. Denies urinary symtpoms. History of Present Illness The patient is a 62 year old female who presents to the Emergency Room with complaints of constipation that started 1 week ago. She states she has abdominal pain rated as 9/10, back pain and reports having previous episodes of constipation that occur every 6 months. She denies urinary symptoms. She states that she tried to use an enema but was unsuccessful. The patient states her last bowel movement was 1 week ago. Source of History: patient Onset: 1 week ago Position: abdomen Symptom Intensity: severity rated as 9/10 Timing: constant Associated Symptoms: + abdominal pain, + back pain, No urinary symptoms Note: Patient reports her last bowel movement was 1 week ago and has had previous episodes occurring every 6 months. Review of Systems See HPI for pertinent positives & negatives. A total of 10 systems reviewed and were otherwise negative. Past Medical & Surgical Medical Problems: (1) Acute gastritis (2) Altered mental status (3) Diabetes (4) DKA (diabetic ketoacidoses) (5) Dyslipidemia (6) HNP (herniated nucleus pulposus), lumbar (7) Hypertension (8) Hypokalemia (9) Hypotension (10) Intractable low back pain (11) Lower extremity weakness (12) Lumbar stenosis with neurogenic claudication (13) past psych meds (14) Past Psychiatric Medications (15) Tachycardia Surgical Problems: (1) H/O cardiac catheterization (2) History of hysterectomy Family History Patient reports no known family medical history. Social History Smoking Status: Never Smoker Drug Use: none Marital Status: Housing Status: lives with family Occupation Status: employed Current/Historical Medications Scheduled Aripiprazole (Abilify), 5 MG PO QAM Famotidine (Pepcid), 20 MG PO BID Gabapentin (Neurontin), 100 MG PO QAM Insulin Aspart (Novolog Flexpen), Unknown Dose SC ACHS Insulin Glargine (Lantus Solostar), 38 UNITS SC DAILY AT 1999 Levothyroxine Sodium (Synthroid), 125 MCG PO DAILY Mirtazapine Soltab (Remeron Soltab), 30 MG PO HS Paroxetine (Paxil), 40 MG PO QAM Scheduled PRN Acetaminophen Tab (Tylenol), 325 MG PO DIRECTED PRN for Pain or Fever Allergies Coded Allergies: Cisapride (Verified Allergy, Intermediate, HIVES, 09/09/17) Doxycycline (Verified Allergy, Intermediate, RASH, 09/09/17) Lansoprazole (Verified Allergy, Intermediate, HIVES, 09/09/17) Tetracycline (Verified Allergy, Mild, DOXYCYCLINE CAUSES RASH, 09/09/17) Physical Exam Vital Signs Date Time Temp Pulse Resp B/P (MAP) Pulse Ox O2 Delivery O2 Flow Rate FiO2 09/09/17 20:02 80 18 104/69 97 Room Air 09/09/17 18:17 36.6 95 20 139/87 97 Room Air Physical Exam CONSTITUTIONAL/VITAL SIGNS: Reviewed / noted above. GENERAL: Non-toxic in appearance. INTEGUMENTARY: Warm, dry, and [place]. HEAD: Normocephalic. EYES: without scleral icterus or trauma. ENT/OROPHARYNX: clear and moist. LYMPHADENOPATHY/NECK: Is supple without lymphadenopathy or meningismus. RESPIRATORY: Lungs clear and equal. CARDIOVASCULAR: Regular rate and rhythm. GI/ABDOMEN: Soft and nontender. No organomegaly or pulsatile mass. No rebound or guarding. Normal bowel sounds. Hard stool in rectum. EXTREMITIES: Warm and well perfused. BACK: No CVA tenderness. NEUROLOGICAL: Intact without focal deficits. PSYCHIATRIC: normal affect. MUSCULOSKELETAL: Normally developed with good muscle tone. Medical Decision & Procedures Medications Administered Medications (Trade) Dose Ordered Sig/Trevon Route Start Time Stop Time Status Last Admin Dose Admin Miscellaneous (Soap Suds Enema) 1 ea ONE ONCE NM 09/09/17 18:45 09/09/17 18:46 DC 09/09/17 19:37 1 EA ED Course 1820: Previous medical records were reviewed. The patient was evaluated in room C10. A complete history and physical examination was performed. 1844: Soap Suds Enema 1 ea. 1930: I checked on the patient. 2044: On reevaluation, the patient is doing well. I discussed the results and findings with the patient. She verbalized agreement of the treatment plan. She was discharged home. Medical Decision Differential considered: pancreatitis, hepatitis, or acute cholecystitis, AAA, UTI, pyelonephritis, kidney stones, appendicitis, diverticulitis, shingles, bowel obstruction mesenteric ischemia, intussusception,hernia, ovarian torsion, ruptured ovarian cyst,ectopic , . This is a 62-year-old female who presents to the ED with a chief complaint of constipation. The patient states that last bowel movement was 1 week ago. She does have a history of constipation and states she requires disimpaction about every 6 months. The patient reports that she tried [id number] home remedies as well as a fleets enema without improvement. Exam did not reveal any abdominal tenderness but does reveal moderate hard stool in the rectum. She was disimpacted and an enema has been done. The patient had a large bowel movement. Her symptoms resolved and she is feeling better. She was discharged. Medication Reconcilliation Current Medication List: was personally reviewed by me Blood Pressure Screening Patient's blood pressure: Elevated blood pressure Blood pressure disposition: Elevated BP felt to be situational Impression Primary Impression: Constipation Scribe Attestation The scribe's documentation has been prepared under my direction and personally reviewed by me in its entirety. I confirm that the note above accurately reflects all work, treatment, procedures, and medical decision making performed by me. Departure Information Dispostion Home / Self-Care Referrals No Doctor, Assigned (PCP) Patient Instructions Constipation, My [facility] Additional Instructions Continue your constipation medications. Follow-up with your doctor for further care and evaluation in 1-2 days. Return to the emergency department for worsening or new symptoms or any concerns. You have been examined and treated today on an emergency basis only. This is not a substitute for, or an effort to provide, complete comprehensive medical care. It is impossible to recognize and treat all injuries or illnesses in a single emergency department visit. It is therefore important that you follow up closely with your doctor. Call as soon as possible for an appointment.
[2017-09-09 20:59] VITALS: BP 106/67; PULSE 78; O2SAT 97
== END 2017-09-09 21:02 | disposition home or self-care (01) ==
LOC: C.EDB 18:16 → C.EDC 21:02
DX: K59.00 Constipation, unspecified (principal); E78.5 Hyperlipidemia, unspecified; I10 Essential (primary) hypertension; E87.6 Hypokalemia; M48.062 Spinal stenosis, lumbar region with neurogenic claudication; E11.10 Type 2 diabetes mellitus with ketoacidosis without coma; K29.00 Acute gastritis without bleeding; Z79.4 Long term (current) use of insulin; Z79.899 Other long term (current) drug therapy

== ENCOUNTER 2018-08-28 15:18 | Inpatient (IN) ==
--- NOTE | 2018-08-28 16:34 | CT Scan Report ---
CT OF THE HEAD WITHOUT CONTRAST CLINICAL HISTORY: Stroke evaluation COMPARISON STUDY: Head CT May 04, 2018. CT DOSE: 537.48 mGy.cm TECHNIQUE: Helical axial images of the head were obtained without IV contrast. Automated exposure con trol was utilized for the study. A dose lowering technique was utilized adhering to the principles o f ALARA. FINDINGS: No acute intracranial hemorrhage, midline shift or mass effect is present. Ventricular syst em is normal. Basilar cisterns are patent. There are no extra-axial collections. White matter hypoden sities are unchanged. A possible old lacunar infarct within the right thalamus is unchanged. There ma y be additional old bilateral lacunar infarcts. There are no findings to suggest acute dural sinus th rombosis or acute territorial infarct. There are no significant calvarial abnormalities. IMPRESSION: No acute intracranial findings. Electronically signed by: Ferdinand Arreola M.D. 08/28/2018 4:33 PM
[2018-08-28] MEDS ORDERED: NovoLIN-R INSULIN PER UNIT CHARGE IV STA (16:47)
[2018-08-28 16:52] LABS: Basophils # (auto) 0.02 K/uL (0-0.2); Basophils % (auto) 0.2 %; Eosinophils # (auto) 0.12 K/uL (0-0.5); Eosinophils % (auto) 1.1 %; Hematocrit (blood only) 42.3 % (37-47); Hemoglobin 14.9 g/dL (12.0-16.0); Immature Granulocytes # (auto) 0.03 K/uL (0.00-0.02); Immature Granulocytes % (auto) 0.3 %; Lymphocytes # (auto) 4.09 K/uL (1.2-3.4); Lymphocytes % (auto) 36.3 %; Mean Corpuscular Hgb Conc 35.2 g/dL (32-36); Mean Corpuscular Volume 85.8 fL (80-100); Mean Platelet Volume 9.8 fL (7.4-10.4); Monocytes # (auto) 0.68 K/uL (0.11-0.59); Neutrophils # (auto) 6.32 K/uL (1.4-6.5); Neutrophils % (auto) 56.1 %; Platelet Count 261 K/uL (130-400); RDW Coefficient of Variation 13.7 % (11.5-14.5); RDW Standard Deviation 42.8 fL (36.4-46.3); Red Blood Count 4.93 M/uL (4.2-5.4); White Blood Count 11.26 K/uL (4.8-10.8)
[2018-08-28 17:05] LABS: Partial Thromboplastin Time 25.2 Seconds (21.0-31.0); Prothrombin Time 10.3 Seconds (9.0-12.0)
[2018-08-28 17:22] LABS: Alanine Aminotransferase 22 U/L (12-78); Albumin Level 3.6 gm/dl (3.4-5.0); Alkaline Phosphatase 107 U/L (45-117); Aspartate Aminotransferase 13 U/L (15-37); BUN Creatinine Ratio 19.9 (10-20); Bilirubin Direct < 0.1 mg/dl (0-0.2); Bilirubin,Total 0.3 mg/dl (0.2-1); Blood Urea Nitrogen 17 mg/dl (7-18); Calcium 9.7 mg/dl (8.5-10.1); Carbon Dioxide 22 mmol/L (21-32); Chloride 100 mmol/L (98-107); Creatinine Clr Calc Pharmacy 67.1 ml/min; Est GFR (African American) 82.8; Est GFR (Non-African American) 71.4; Glucose 354 mg/dl (70-99); Magnesium 2.1 mg/dl (1.8-2.4); Potassium 4.1 mmol/L (3.5-5.1); Sodium 133 mmol/L (136-145); Troponin I < 0.015 ng/ml (0-0.045)
[2018-08-28 17:40] LABS: Beta-Hydroxybutyrate 1.92 mg/dl (0.2-2.81)
[2018-08-28] MEDS ORDERED: NITROGLYCERIN SL 0.4 MG/TAB TAB SL PRN (18:44)
[2018-08-28] MEDS ORDERED: PHARMACIST DISCHARGE MED REC CONSULT PRN (18:44)
[2018-08-28] MEDS ORDERED: MAGNESIUM HYDROXIDE SUSP 30 ML UDC PO PRN (18:44)
[2018-08-28] MEDS ORDERED: ACETAMINOPHEN 325 MG TAB PO PRN (18:44)
[2018-08-28] MEDS ORDERED: POLYETHYLENE (MIRALAX) 17 GM PACK PO PRN (18:44)
[2018-08-28] MEDS ORDERED: ONDANSETRON INJ 2 MG/ML 2 ML VIAL IV PRN (18:44)
[2018-08-28] MEDS ORDERED: ALUMINUM/MAGNESIUM SUSP 30 ML UDC PO PRN (18:44)
[2018-08-28] MEDS ORDERED: CARBOHYDRATES FOR HYPOGLYCEMIA PO PRN (18:54)
[2018-08-28] MEDS ORDERED: DEXTROSE 50% 50 ML SYRINGE IV PRN (18:54)
[2018-08-28] MEDS ORDERED: GLUCOSE 10 TABS/TUBE PO PRN (18:54)
[2018-08-28] MEDS ORDERED: GLUCAGON FOR INJ 1 MG VIAL SQ PRN (18:54)
[2018-08-28] MEDS ORDERED: GLUCOSE 40% GEL 15 GM TUBE PO PRN (18:54)
--- NOTE | 2018-08-28 19:01 | History & Physical Report ---
Date of Service August 28, 2018 Assessment & Plan (1) Altered mental status: Slurred speech, confusion Head CT negative - Stroke/TIA - stroke protocol initiated. 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 - IVF NSS 500cc bolus, then mIVF NSS @ 150cc/hr - Hold metformin. Continue Lantus 40units BID + ISS with BSG ac/hs - Check HbA1c - DM educator consulted given recurrent visit for hyperglycemia - Check B12 levels given ongoing loss of sensation, although may purely be diabetic neuropathy HypoNa 2/2 hyperglycemia - Corrects to 137 - Trend BMP Ear wound Followed by wound clinic - Daily wound care Urinary sx - Check UA and UCx if indicated - Given presence of sx, consider empiric treatment if sx persistent HTN - Continue metoprolol Depression/Anxiety - Continue home regimen: paroxetine, mirtazapine, aripirazole Hypothyroid - Continue Levothyroxine Constipation - Continue docusate Diet: DM II VTE ppx: Enoxaparin SQ daily Code: Full (2) Hyperglycemia: (3) Constipation: (4) Wound, open, ear, external with complication: (5) Anxiety: (6) Dyslipidemia: (7) Hypertension: History of Present Illness Chief Complaint: Confusion, slurred speech Primary Care Provider: Andry Kerr 63 yo F w/ pMHx DMII, HTN, HLD, ambulatory dysfunction, multiple psych issues, and h/o of TIA was brought to the ED today by her daughter after the patient was noted to have some confusion and slurred speech earlier today. Patient notes she was feeling slightly unwell today. She had an appointment at the wound clinic for ongoing management of non-healing ear wound, and en route her daughter noted patient had confused her and her granddaughter. During the appointment health care providers noted she was slurring her speech slightly. They did check her sugars at the time and noted they were elevated and advised she go to the ED. Since arrival in the ED the patient feels slightly better. She states she has been well and denies fevers/chills, headaches (though she describes some photophobia), new vision changes, CP, SOB, N/V, abdominal pain, changes in stool habits. She does note having dysuria and urinary frequency over the last few days. She also notices that though she has chronic ambulatory dysfunction secondary to a fall/back trauma s/p surgery a few years ago that her legs feel weak with worsening numbness and tingling today. At baseline she ambulates with a cane or walker and denies any recent falls or LOC. At baseline patient states she has adequate hydration. She notes that her A1c's have always been well controlled, her last A1c on 02/07/18 wer 6.7 on a regimen of metformin BID and Lantus nightly. She does not check her sugars on a daily basis. Her boyfriend states that she is not a good eater, and her diet consists of cereal on most days. Of note, patient had a similar admission in 2017. Regarding mediation changes, patient admits that she no longer takes her aspirin , she had not started her low-dose rosuvastatin to date, and review of outside records show aripiprazole was a recent addition to her medication. Also of note patient sees neurology at [place]. Outpatient records review a recent head MRI (report noted in results section) ED course: IV insulin PMHx: - DMII with peripheral neuropathy - HTN - HLD - Chronic back pain - h/o TIA - Depression - Anxiety - Panic attacks - Gout PSHx: - Lap KARIN - Thyroid ablation - Low back surgery with fusion - Tonsillectomy SHx: - Never smoker - No ETOh use Allergies Allergy/AdvReac Type Severity Reaction Status Date / Time cisapride Allergy Intermediate HIVES Verified 08/28/18 17:38 doxycycline Allergy Intermediate RASH Verified 08/28/18 17:38 lansoprazole Allergy Intermediate HIVES Verified 08/28/18 17:38 tetracycline Allergy Mild DOXYCYCLINE Verified 08/28/18 17:38 CAUSES RASH gadobutrol [From Gadavist] AdvReac Intermediate Hives Unverified 08/29/18 14:49 Home Medications Home Medications Medication Instructions Recorded Confirmed Type insulin glargine [Lantus Solostar 38 unit SUBCUT HS 05/04/18 08/28/18 History U-100 Insulin] levothyroxine 137 mcg PO QAM 05/04/18 08/28/18 History metformin 500 mg PO BID 05/04/18 08/28/18 History mirtazapine 30 mg PO HS 05/04/18 08/28/18 History paroxetine HCl 40 mg PO QAM 05/04/18 08/28/18 History aripiprazole 5 mg PO QAM 08/28/18 08/28/18 History insulin aspart U-100 [Novolog 0 unit SUBCUT UD 08/28/18 08/28/18 History Flexpen U-100 Insulin] Past Med/Surg History Medical History Diabetes (Chronic) Acute gastritis (Resolved) Altered mental status Anxiety (Chronic) Chest pain (Resolved) Constipation (Acute) DKA (diabetic ketoacidoses) Dyslipidemia (Chronic) Fecal impaction (Resolved) HNP (herniated nucleus pulposus), lumbar (Chronic) Hypertension (Resolved) Hypokalemia (Resolved) Hypotension (Chronic) Intractable low back pain (Chronic) Lower extremity weakness (Chronic) Lumbar stenosis with neurogenic claudication (Resolved) Major depressive disorder, recurrent episode, severe with anxious distress ( Chronic) Suicide attempt (Chronic) Tachycardia (Chronic) Surgical History History of hysterectomy (Resolved) H/O cardiac catheterization (Resolved) Family History Other No pertinent family history in first degree relatives Social History marital status: Legally Current Living Situation: Significant Other Other Information That Helps Us Care for You: No Feels Safe at Home: Yes Safety Concerns: Feels Safe At This Time Smoking Status: Never smoker Hx Alcohol Use: No Hx Substance Use: No Beliefs That Will Affect Care: None Communication Ability: Effective Review of Systems All systems reviewed & are unremarkable except as noted in HPI & below Physical Exam 2 Vital Signs (Past 24 Hours): Last Vital Signs Temp 36.7 C 08/28/18 15:23 Pulse 115 H 01/23/19 18:13 Resp 18 08/28/18 18:13 BP 122/90 08/28/18 18:13 Pulse Ox 98 08/28/18 18:13 Constitutional: WD/WN, vitals as above + obese; no acute distress Eyes: PERRL, conjunctivae normal, anicteric sclerae normal accommodation; + EOM not intact (Limited due to pain) Evidence of mild photophobia ENMT: external ear and nose normal, oropharynx normal Mouth: + oral mucosal abnormality (dry mucosa) Neck: normal visual inspection Respiratory: normal respiratory effort, lungs clear to auscultation no cough Auscultation: no crackles and no wheezes Cardiovascular: RRR, no murmur, no edema Heart Sounds: normal S1 and normal S2 Vessels: posterior tibial pulses present; + dorsalis pedis pulses abnormal Extremities: no calf tenderness and no edema Gastrointestinal (Abdomen): normal bowel sounds, soft, nontender, no hepatosplenomegaly Inspection/Auscultation: abdomen not distended Percussion/Palpation: no guarding and abdomen not rigid Musculoskeletal: Head/Neck/Chest: normocephalic, head atraumatic and neck supple Extremities: extremities normal to inspection and + abnormal strength (Generalized weakness bilaterally, 4/5) Skin: no rashes, warm and dry + wound (Right ear, open wound, dressed) Neurologic: PERRL, EOMI, accommodation nl, no face palsy, no dysarthria CN' s II-XI intact bilaterally and moves all extremities; no focal motor deficits and no meningeal signs Speech / Cognition: normal speech Motor/Sensory: + sensory deficit (absent sensation to light touch on feet bilaterally, improved sensation of lower extremities) Cranial Nerves: PERRL, normal accommodation, tongue midline, normal hearing and able to elevate shoulders bilaterally; + EOM not intact (limited to pain) and + nystagmus (mild horizontal nystagmus) Psychiatric: A+Ox3, euthymic affect Cognition: + recent memory not intact Genitourinary: No quach Results & Data Laboratory Results Laboratory Results - last 24 hr 08/28/18 08/28/18 08/28/18 15:26 16:39 16:39 WBC 11.26 H RBC 4.93 Hgb 14.9 Hct 42.3 MCV 85.8 MCH 30.2 MCHC 35.2 RDW Std Deviation 42.8 RDW Coeff of Maris 13.7 Plt Count 261 MPV 9.8 Immature Gran % (Auto) 0.3 Neut % (Auto) 56.1 Lymph % (Auto) 36.3 [place] % (Auto) 6.0 Eos % (Auto) 1.1 Baso % (Auto) 0.2 Immature Gran # (Auto) 0.03 H Neut # (Auto) 6.32 Lymph # (Auto) 4.09 H [place] # (Auto) 0.68 H Eos # (Auto) 0.12 Baso # (Auto) 0.02 PT 10.3 INR 1.0 APTT 25.2 PTT Ratio 1.0 Sodium Potassium Chloride Carbon Dioxide Anion Gap BUN Creatinine Est Cr Clr Drug Dosing Est GFR ( Amer) Est GFR (Non-Af Amer) BUN/Creatinine Ratio Glucose POC Glucose 415 H* Estimat Average Glucose Hemoglobin A1c Calcium Magnesium Total Bilirubin Direct Bilirubin AST ALT Alkaline Phosphatase Troponin I Total Protein Albumin Beta-Hydroxybutyric Acd Urine Color Urine Appearance Urine pH Ur Specific Collins Urine Protein Urine Glucose (UA) Urine Ketones Urine Blood Urine Nitrite Urine Bilirubin Urine Urobilinogen Ur Leukocyte Esterase Blood Type Antibody Screen 08/28/18 08/28/18 08/28/18 16:39 16:39 16:39 WBC RBC Hgb Hct MCV MCH MCHC RDW Std Deviation RDW Coeff of Maris Plt Count MPV Immature Gran % (Auto) Neut % (Auto) Lymph % (Auto) [place] % (Auto) Eos % (Auto) Baso % (Auto) Immature Gran # (Auto) Neut # (Auto) Lymph # (Auto) [place] # (Auto) Eos # (Auto) Baso # (Auto) PT INR APTT PTT Ratio Sodium 133 L Potassium 4.1 Chloride 100 Carbon Dioxide 22 Anion Gap 11.0 BUN 17 Creatinine 0.87 Est Cr Clr Drug Dosing 67.1 Est GFR ( Amer) 82.8 Est GFR (Non-Af Amer) 71.4 BUN/Creatinine Ratio 19.9 Glucose 354 H* POC Glucose Estimat Average Glucose 266 Hemoglobin A1c 10.9 H Calcium 9.7 Magnesium 2.1 Total Bilirubin 0.3 Direct Bilirubin < 0.1 AST 13 L ALT 22 Alkaline Phosphatase 107 Troponin I < 0.015 Total Protein 8.0 Albumin 3.6 Beta-Hydroxybutyric Acd 1.92 Urine Color Urine Appearance Urine pH Ur Specific Collins Urine Protein Urine Glucose (UA) Urine Ketones Urine Blood Urine Nitrite Urine Bilirubin Urine Urobilinogen Ur Leukocyte Esterase Blood Type O Positive Antibody Screen NEGATIVE 08/28/18 08/28/18 08/28/18 16:43 17:15 17:48 WBC RBC Hgb Hct MCV MCH MCHC RDW Std Deviation RDW Coeff of Maris Plt Count MPV Immature Gran % (Auto) Neut % (Auto) Lymph % (Auto) [place] % (Auto) Eos % (Auto) Baso % (Auto) Immature Gran # (Auto) Neut # (Auto) Lymph # (Auto) [place] # (Auto) Eos # (Auto) Baso # (Auto) PT INR APTT PTT Ratio Sodium Potassium Chloride Carbon Dioxide Anion Gap BUN Creatinine Est Cr Clr Drug Dosing Est GFR ( Amer) Est GFR (Non-Af Amer) BUN/Creatinine Ratio Glucose POC Glucose 320 H 294 H 202 H Estimat Average Glucose Hemoglobin A1c Calcium Magnesium Total Bilirubin Direct Bilirubin AST ALT Alkaline Phosphatase Troponin I Total Protein Albumin Beta-Hydroxybutyric Acd Urine Color Urine Appearance Urine pH Ur Specific [place] Urine Protein Urine Glucose (UA) Urine Ketones Urine Blood Urine Nitrite Urine Bilirubin Urine Urobilinogen Ur Leukocyte Esterase Blood Type Antibody Screen 08/28/18 08/28/18 08/28/18 19:39 19:40 21:10 WBC RBC Hgb Hct MCV MCH MCHC RDW Std Deviation RDW Coeff of Maris Plt Count MPV Immature Gran % (Auto) Neut % (Auto) Lymph % (Auto) [place] % (Auto) Eos % (Auto) Baso % (Auto) Immature Gran # (Auto) Neut # (Auto) Lymph # (Auto) [place] # (Auto) Eos # (Auto) Baso # (Auto) PT INR APTT PTT Ratio Sodium Potassium Chloride Carbon Dioxide Anion Gap BUN Creatinine Est Cr Clr Drug Dosing Est GFR ( Amer) Est GFR (Non-Af Amer) BUN/Creatinine Ratio Glucose POC Glucose 183 H 203 H Estimat Average Glucose Hemoglobin A1c Calcium Magnesium Total Bilirubin Direct Bilirubin AST ALT Alkaline Phosphatase Troponin I Total Protein Albumin Beta-Hydroxybutyric Acd Urine Color Yellow Urine Appearance Clear Urine pH 5.0 Ur Specific Collins 1.039 H Urine Protein Negative Urine Glucose (UA) 3+ H Urine Ketones Negative Urine Blood Negative Urine Nitrite Negative Urine Bilirubin Negative Urine Urobilinogen Negative Ur Leukocyte Esterase Negative Blood Type Antibody Screen Diagnostic Findings CT OF THE HEAD WITHOUT CONTRAST CLINICAL HISTORY: Stroke evaluation COMPARISON STUDY: Head CT May 04, 2018. CT DOSE: 537.48 mGy.cm TECHNIQUE: Helical axial images of the head were obtained without IV contrast. Automated exposure control was utilized for the study. A dose lowering technique was utilized adhering to the principles of ALARA. FINDINGS: No acute intracranial hemorrhage, midline shift or mass effect is present. Ventricular system is normal. Basilar cisterns are patent. There are no extra-axial collections. White matter hypodensities are unchanged. A possible old lacunar infarct within the right thalamus is unchanged. There may be additional old bilateral lacunar infarcts. There are no findings to suggest acute dural sinus thrombosis or acute territorial infarct. There are no significant calvarial abnormalities. IMPRESSION: No acute intracranial findings. Outside records: [facility] MRI BRAIN WITHOUT CONTRAST EXAM DATE OF SERVICE: 09/15/2017 ORDERING PHYSICIAN: ZO BYERS CLINICAL HISTORY: Right facial and arm weakness COMPARISON: None FINDINGS: Cerebral parenchyma: -Multiple small T2/FLAIR hyperintensities in bilateral cerebral white matter in the subcortical and periventricular regions, including the corpus callosum.[] Extra-axial spaces: [Normal] Ventricles: Normal [] Mass effect: [None] Basal Cisterns: [normal] Posterior Fossa: [normal] Vascular system: Flow voids are maintained Calvarium: [normal] Sella: [normal] Visualized paranasal sinuses/mastoids: [Clear] Visualized orbits: [Unremarkable] IMPRESSION: Multiple small T2/FLAIR hyperintensities in bilateral subcortical and periventricular white matter including the corpus callosum. Differentials would include multiple sclerosis versus age-related chronic microvascular ischemic changes REVIEWED AND SIGNED: KIANNA BAKER DATE OF FINAL SIGNATURE: 09/17/2017 09:30 AM Code Status & VTE Plan Code Status FULL CODE VTE Prophylaxis Plan VTE Prophylaxis will be ordered: Yes Supervising Physician Co-Signing Physician Notes I personally examined the patient and verified all garcia points of history and exam, discussed case, and agree with decision making with Dr Serrano. Generally feeling lousy and off, but then at the wound clinic did have apparently a witnessed a discrete episode of transient dysarthria. Feels better from that now. Vitals noted, in general she is awake alert oriented x3 fatigued appearing but in no distress. HEENT normal cephalic atraumatic mucous membranes are moist. Cardio shows regular rate no rubs murmurs or gallops, lungs are clear to auscultation bilaterally no rales rhonchi or wheezes good effort. Abdomen is soft nondistended nontender no masses or organomegaly extremity clubbing she does have a degree of edema. Neuro shows diminished sensation bilateral lower extremities and of strabismus or esotropia, although her significant other looks at her eyes and does not notice anything looks different from her normal TIA versus CVAher biggest risks appear to be diabetes hypertension hyperlipidemia. She may have had a small stroke, but her symptoms have resolved. She has not been on aspirin for a while. Reinitiate this. Check lipids, carotids, A1c, echo. Anticipate the need for high-dose statin, follow sugar for control. Otherwise as above Hyperglycemic dehydrationfluids insulin follow await A1c. DVT prophylaxisLovenox Resident Activity Tracking Resident Involvement: Resident Care Provided Care Provided: Adult Hospital Medicine _ (1) Wound, open, ear, external with complication Encounter type: initial encounter Laterality: right Qualified Code(s): S01.301A - Unspecified open wound of right ear, initial encounter
[2018-08-28] MEDS ORDERED: SODIUM CHLORIDE 0.9% 500 ML IV STA (19:30)
[2018-08-28 20:02] LABS: Appearance Urine Clear (Clear); Bilirubin Urine Negative (Negative); Blood Urine Negative (Negative); Color Urine Yellow; Glucose Urine UA 3+ (Negative); Ketones Urine Negative (Negative); Leukocyte Esterase Urine Negative (Negative); Nitrite Urine Negative (Negative); Protein Urine Negative (Negative); Specific Gravity Urine 1.039 (1.000-1.030); Urobilinogen Urine Negative (Negative)
--- NOTE | 2018-08-28 20:49 | Ultrasound Report ---
ULTRASOUND OF THE CAROTID ARTERIES CLINICAL HISTORY: Transient ischemic attack. COMPARISON STUDY: Carotid artery ultrasound dated 03/16/2011. TECHNIQUE: Real-time, grayscale, and color Doppler sonography of the carotid arteries is performed. I mages are reviewed in the transverse and longitudinal planes. FINDINGS: Blood pressure in the right arm measures 122/90 and blood pressure in the left arm measures 119/86. The carotid arteries are patent bilaterally and demonstrate antegrade flow. There is no significant a therosclerotic plaque identified. Normal doppler arterial waveforms are seen throughout. Velocity keyur surements are listed below. Common carotid peak systolic velocity (cm/sec): RIGHT: 59 LEFT: 6 day ICA proximal peak systolic velocity (cm/sec): RIGHT: 34 LEFT: 50 ICA mid peak systolic velocity (cm/sec): RIGHT: 51 LEFT: 52 ICA distal peak systolic velocity (cm/sec): RIGHT: 43 LEFT: 36 ICA/CC peak systolic ratio: RIGHT: 0.9 LEFT: 0.9 Antegrade flow was shown in the vertebral arteries. The external carotid arteries are patent. IMPRESSION: 1. There is no sonographic evidence of hemodynamically significant stenosis in the right or left wong tid arterial system. 2. Antegrade flow is shown in the vertebral arteries. Electronically signed by: Bright Cruz M.D. 08/28/2018 8:47 PM
[2018-08-28] MEDS ORDERED: PNEUMOCOCCAL POLYSACCHARIDES 25 MCG/0.5 ML VIAL/SYR IM ONE (22:00)
[2018-08-28] MEDS ORDERED: PNEUMOCOCCAL ADMINISTRATION CHARGE ONE (22:00)
[2018-08-28] MEDS: MIRTAZAPINE TAB 15 MG TAB PO SCH (22:15)
[2018-08-28] MEDS: INSULIN GLARGINE SOLOSTAR 100 UNITS/ML 3 ML PEN SC SCH (22:15)
[2018-08-28] MEDS: INSULIN ASPART 100 UNITS/ML 3 ML PEN SC SCH (22:19)
--- NOTE | 2018-08-28 23:41 | Emergency Department Note ---
Entered by Almaz Garcia acting as a scribe for History of Present Illness General Chief complaint: Hyperglycemia Stated complaint: HYPERGLYCEMIA,DIZZY Source: patient Mode of arrival: ambulatory Limitations: no limitations History of Present Illness Provider complaint: dizziness Onset (ago): minute(s) ([employer]) Location: head Pain Consistency: + other (episode) Maximum Pain Intensity: 0 Quality: + other (off-balance) Associated symptoms: + denies other symptoms (melena, abd pain, dysuria), + nausea/vomiting (nausea, no emesis) and + other (frrequent urination); no chest pain, no cough, no fever/chills and no shortness of breath The patient is a 63 year old female who presents to the Emergency Room following an episode of dizziness that occurred prior to arrival. The patient describes the dizziness as "being somewhat off-balance" and reports that the episode occurred at the [facility] after having a biopsy of her right ear performed. The patient states that it only recently resolved and that she also felt nauseous during this episode. She denies any emesis as well any chest pain or shortness of breath. She also denies any recent episodes of diarrhea, fever, coughs, abdominal pain, melena or dysuria but notes she has been urinating frequently recently. The patient reports that she has chronic weakness of her legs and uses a cane to ambulate secondary to having a spinal fusion performed. She also states that she has a history of diabetes. The patient notes that she last ate this morning, when she had cereal for breakfast. The patient denies taking any blood thinners. Home Medications Home Medications Medication Instructions Recorded Confirmed Type insulin glargine [Lantus Solostar 38 unit SUBCUT 05/04/18 08/28/18 History U-100 Insulin] levothyroxine 137 mcg PO QAM 05/04/18 08/28/18 History metformin 500 mg PO BID 05/04/18 08/28/18 History mirtazapine 30 mg PO 05/04/18 08/28/18 History paroxetine HCl 40 mg PO QAM 05/04/18 08/28/18 History aripiprazole 5 mg PO QAM 08/28/18 08/28/18 History insulin aspart U-100 [Novolog 0 unit SUBCUT 08/28/18 08/28/18 History Flexpen U-100 Insulin] Allergies Allergy/AdvReac Type Severity Reaction Status Date / Time cisapride Allergy Intermediate HIVES Verified 08/28/18 17:38 doxycycline Allergy Intermediate RASH Verified 08/28/18 17:38 lansoprazole Allergy Intermediate HIVES Verified 08/28/18 17:38 tetracycline Allergy Mild DOXYCYCLINE Verified 08/28/18 17:38 CAUSES RASH Past Med/Surg History Medical History Diabetes (Chronic) Acute gastritis (Resolved) Altered mental status Anxiety (Chronic) Chest pain (Resolved) Constipation (Acute) DKA (diabetic ketoacidoses) Dyslipidemia (Chronic) Fecal impaction (Resolved) HNP (herniated nucleus pulposus), lumbar (Chronic) Hypertension (Resolved) Hypokalemia (Resolved) Hypotension (Chronic) Intractable low back pain (Chronic) Lower extremity weakness (Chronic) Lumbar stenosis with neurogenic claudication (Resolved) Major depressive disorder, recurrent episode, severe with anxious distress ( Chronic) Suicide attempt (Chronic) Tachycardia (Chronic) Surgical History History of hysterectomy (Resolved) H/O cardiac catheterization (Resolved) Family History Other No pertinent family history in first degree relatives Social History marital status: Current Living Situation: Significant Other Other Information That Helps Us Care for You: No Feels Safe at Home: Yes Safety Concerns: Feels Safe At This Time Smoking Status: Never smoker Hx Alcohol Use: No Hx Substance Use: No Beliefs That Will Affect Care: None Preferred Language: Djib[place]ian Communication Ability: Impaired Communication Ability Comment: some difficulty with memory Rack Cleaner Required: No Review of Systems See HPI for pertinent positives & negatives. and A total of 10 systems reviewed and were otherwise negative Physical Exam Vital Signs Vital Signs - 24 hr 08/28/18 15:23 08/28/18 16:47 08/28/18 17:08 Temperature 36.7 C Temperature Source Oral Sepsis Recent Fever Within 48 Hours No Sepsis Action Taken by Nursing No Action Required Pulse Rate 95 H Pulse Rate [Finger] 94 H 102 H Pulse Rhythm [Finger] Regular Respiratory Rate 18 18 18 Respiratory Effort / Characteristics Non-Labored Non-Labored Respiratory Depth Normal Normal Blood Pressure 124/87 Blood Pressure [Left Arm] Blood Pressure [Right Arm] 137/97 154/104 H Blood Pressure Mean 99 Blood Pressure Mean [Left Arm] Blood Pressure Mean [Right Arm] 110 120 Pulse Oximetry 98 96 Oxygen Delivery Method Room Air Room Air 08/28/18 18:13 08/28/18 19:10 08/28/18 20:01 Temperature Temperature Source Sepsis Recent Fever Within 48 Hours Sepsis Action Taken by Nursing Pulse Rate 112 H Pulse Rate [Finger] 115 H 108 H Pulse Rhythm [Finger] Respiratory Rate 18 18 18 Respiratory Effort / Characteristics Non-Labored Non-Labored Respiratory Depth Normal Normal Blood Pressure 119/86 Blood Pressure [Left Arm] Blood Pressure [Right Arm] 122/90 140/89 Blood Pressure Mean Blood Pressure Mean [Left Arm] Blood Pressure Mean [Right Arm] 100 106 Pulse Oximetry 98 97 95 Oxygen Delivery Method Room Air Room Air Room Air 08/28/18 20:39 08/28/18 22:40 Temperature 36.5 C Temperature Source Oral Sepsis Recent Fever Within 48 Hours Sepsis Action Taken by Nursing Pulse Rate 95 H Pulse Rate [Finger] 105 H Pulse Rhythm [Finger] Respiratory Rate 22 Respiratory Effort / Characteristics Respiratory Depth Blood Pressure Blood Pressure [Left Arm] 128/84 Blood Pressure [Right Arm] 128/84 Blood Pressure Mean Blood Pressure Mean [Left Arm] 98 Blood Pressure Mean [Right Arm] 98 Pulse Oximetry 95 Oxygen Delivery Method Room Air Constitutional: Vital signs reviewed. Eyes: Pupils are equal round reactive to light. Conjunctiva are noninjected. ENT: Pharynx is clear without erythema or exudate. Mucous membranes are moist. Neck supple without meningeal signs. Respiratory: Clear to auscultation bilaterally. Breath sounds are equal bilaterally. Cardiovascular: Regular rate and rhythm. No rubs or gallops. GI: Soft, nondistended and nontender. Bowel sounds are present. Musculoskeletal: No peripheral edema. No lower extremity tenderness. Integumentary: No cyanosis. Neurological: The patient is awake and alert. She does not follow all commands. Her cranial nerve exam demonstrates difficulty keeping her eyes closed against resistance and smiling. Seems to be worse on the right side. She has 3 out of 5 strength in all extremities with some increased weakness on the right arm and leg. Sensation is intact to light touch all extremities. She does appear to have some limb ataxia on the right arm and leg. Speech is normal. Psychiatric: Normal affect. Course 1602: Past medical records reviewed. The patient was evaluated in room C9, and a complete history and physical examination were performed. 1643: I discussed the patients case with Dr. Johnson Mad[facility]. She recommends we pre-mix TPA because we may need it. 1704: The patient is still being evaluated by Dr. Johnson. 1715: I spoke with Dr. Johnson. She reports that the patient does not appear to have significant deficits above her baseline and that she had very inconsistent findings on exam, so she would not recommend TPA. She also notes that she approached the subject with the patient and the patient said that she did not want anything that entails and risk. 1720: I spoke with the patient about the treatment plan. 1745: I reviewed the patient's case with Dr. Khan [facility] Hospitalist. He will evaluate the patient for further management. 1818: The patient's blood sugar is 209. She is waiting for the hospitalist to reassess. Administered Medications Insulin Aspart (Novolog Flexpen) 0 units SC ACHS COURTNEY Stop: 09/27/18 20:59 Last Admin: 08/28/18 22:19 Dose: 5 units Insulin Glargine (Lantus Solostar Pen) 20 units SC BID COURTNEY Stop: 09/27/18 20:59 Last Admin: 08/28/18 22:15 Dose: 20 units Mirtazapine (Remeron) 30 mg PO HS COURTNEY Stop: 09/27/18 20:59 Last Admin: 08/28/18 22:15 Dose: 30 mg Discontinued Medications Sodium Chloride (Nss) 500 mls @ 500 mls/hr IV .Q1H STA Stop: 08/28/18 20:29 Last Admin: 08/28/18 22:14 Dose: 500 mls/hr Insulin Human Regular (Novolin R U-100 Per Unit) 7 units IV NOW STA Stop: 08/28/18 16:48 Last Admin: 08/28/18 17:16 Dose: 7 units Medical Decision Making Differential Diagnosis Differential diagnosis includes: vertigo, CVA, TIA, intracranial mass, metabolic derangement, and infection. Medical Records Attestation: I reviewed the patient's medical records. Home Medications Current Medication List: was personally reviewed by me Laboratory Data Attestation: I reviewed the patient's lab results. Result diagrams: 08/28/18 16:39 08/28/18 16:39 Lab Results 08/28/18 08/28/18 08/28/18 Range/Units 15:26 16:39 16:39 WBC 11.26 H (4.8-10.8) K/uL RBC 4.93 (4.2-5.4) M/uL Hgb 14.9 (12.0-16.0) g/dL Hct 42.3 (37-47) % MCV 85.8 (80-100) fL MCH 30.2 (25-34) pg MCHC 35.2 (32-36) g/dL RDW Std Deviation 42.8 (36.4-46.3) fL RDW Coeff of Maris 13.7 (11.5-14.5) % Plt Count 261 (130-400) K/uL MPV 9.8 (7.4-10.4) fL Immature Gran % (Auto) 0.3 % Neut % (Auto) 56.1 % Lymph % (Auto) 36.3 % Barnes % (Auto) 6.0 % Eos % (Auto) 1.1 % Baso % (Auto) 0.2 % Immature Gran # (Auto) 0.03 H (0.00-0.02) K/uL Neut # (Auto) 6.32 (1.4-6.5) K/uL Lymph # (Auto) 4.09 H (1.2-3.4) K/uL Barnes # (Auto) 0.68 H (0.11-0.59) K/uL Eos # (Auto) 0.12 (0-0.5) K/uL Baso # (Auto) 0.02 (0-0.2) K/uL PT 10.3 (9.0-12.0) Seconds INR 1.0 (0.9-1.1) APTT 25.2 (21.0-31.0) Seconds PTT Ratio 1.0 Sodium (136-145) mmol/L Potassium (3.5-5.1) mmol/L Chloride (98-107) mmol/L Carbon Dioxide (21-32) mmol/L Anion Gap (3-11) BUN (7-18) mg/dl Creatinine (0.6-1.2) mg/dl Est Cr Clr Drug Dosing ml/min Est GFR ( Amer) Est GFR (Non-Af Amer) BUN/Creatinine Ratio (10-20) Glucose (70-99) mg/dl POC Glucose 415 H* (70-99) Calcium (8.5-10.1) mg/dl Magnesium (1.8-2.4) mg/dl Total Bilirubin (0.2-1) mg/dl Direct Bilirubin (0-0.2) mg/dl AST (15-37) U/L ALT (12-78) U/L Alkaline Phosphatase (45-117) U/L Troponin I (0-0.045) ng/ml Total Protein (6.4-8.2) gm/dl Albumin (3.4-5.0) gm/dl Beta-Hydroxybutyric Acd (0.2-2.81) mg/dl Urine Color Urine Appearance (Clear) Urine pH (4.5-7.5) Ur Specific [place] (1.000-1.030) Urine Protein (Negative) Urine Glucose (UA) (Negative) Urine Ketones (Negative) Urine Blood (Negative) Urine Nitrite (Negative) Urine Bilirubin (Negative) Urine Urobilinogen (Negative) Ur Leukocyte Esterase (Negative) Blood Type Antibody Screen 08/28/18 08/28/18 08/28/18 Range/Units 16:39 16:39 16:43 WBC (4.8-10.8) K/uL RBC (4.2-5.4) M/uL Hgb (12.0-16.0) g/dL Hct (37-47) % MCV (80-100) fL MCH (25-34) pg MCHC (32-36) g/dL RDW Std Deviation (36.4-46.3) fL RDW Coeff of Maris (11.5-14.5) % Plt Count (130-400) K/uL MPV (7.4-10.4) fL Immature Gran % (Auto) % Neut % (Auto) % Lymph % (Auto) % Barnes % (Auto) % Eos % (Auto) % Baso % (Auto) % Immature Gran # (Auto) (0.00-0.02) K/uL Neut # (Auto) (1.4-6.5) K/uL Lymph # (Auto) (1.2-3.4) K/uL Barnes # (Auto) (0.11-0.59) K/uL Eos # (Auto) (0-0.5) K/uL Baso # (Auto) (0-0.2) K/uL PT (9.0-12.0) Seconds INR (0.9-1.1) APTT (21.0-31.0) Seconds PTT Ratio Sodium 133 L (136-145) mmol/L Potassium 4.1 (3.5-5.1) mmol/L Chloride 100 (98-107) mmol/L Carbon Dioxide 22 (21-32) mmol/L Anion Gap 11.0 (3-11) BUN 17 (7-18) mg/dl Creatinine 0.87 (0.6-1.2) mg/dl Est Cr Clr Drug Dosing 67.1 ml/min Est GFR ( Amer) 82.8 Est GFR (Non-Af Amer) 71.4 BUN/Creatinine Ratio 19.9 (10-20) Glucose 354 H* (70-99) mg/dl POC Glucose 320 H (70-99) Calcium 9.7 (8.5-10.1) mg/dl Magnesium 2.1 (1.8-2.4) mg/dl Total Bilirubin 0.3 (0.2-1) mg/dl Direct Bilirubin < 0.1 (0-0.2) mg/dl AST 13 L (15-37) U/L ALT 22 (12-78) U/L Alkaline Phosphatase 107 (45-117) U/L Troponin I < 0.015 (0-0.045) ng/ml Total Protein 8.0 (6.4-8.2) gm/dl Albumin 3.6 (3.4-5.0) gm/dl Beta-Hydroxybutyric Acd 1.92 (0.2-2.81) mg/dl Urine Color Urine Appearance (Clear) Urine pH (4.5-7.5) Ur Specific [place] (1.000-1.030) Urine Protein (Negative) Urine Glucose (UA) (Negative) Urine Ketones (Negative) Urine Blood (Negative) Urine Nitrite (Negative) Urine Bilirubin (Negative) Urine Urobilinogen (Negative) Ur Leukocyte Esterase (Negative) Blood Type O Positive Antibody Screen NEGATIVE 08/28/18 08/28/18 08/28/18 Range/Units 17:15 17:48 19:39 WBC (4.8-10.8) K/uL RBC (4.2-5.4) M/uL Hgb (12.0-16.0) g/dL Hct (37-47) % MCV (80-100) fL MCH (25-34) pg MCHC (32-36) g/dL RDW Std Deviation (36.4-46.3) fL RDW Coeff of Maris (11.5-14.5) % Plt Count (130-400) K/uL MPV (7.4-10.4) fL Immature Gran % (Auto) % Neut % (Auto) % Lymph % (Auto) % Barnes % (Auto) % Eos % (Auto) % Baso % (Auto) % Immature Gran # (Auto) (0.00-0.02) K/uL Neut # (Auto) (1.4-6.5) K/uL Lymph # (Auto) (1.2-3.4) K/uL Barnes # (Auto) (0.11-0.59) K/uL Eos # (Auto) (0-0.5) K/uL Baso # (Auto) (0-0.2) K/uL PT (9.0-12.0) Seconds INR (0.9-1.1) APTT (21.0-31.0) Seconds PTT Ratio Sodium (136-145) mmol/L Potassium (3.5-5.1) mmol/L Chloride (98-107) mmol/L Carbon Dioxide (21-32) mmol/L Anion Gap (3-11) BUN (7-18) mg/dl Creatinine (0.6-1.2) mg/dl Est Cr Clr Drug Dosing ml/min Est GFR ( Amer) Est GFR (Non-Af Amer) BUN/Creatinine Ratio (10-20) Glucose (70-99) mg/dl POC Glucose 294 H 202 H 183 H (70-99) Calcium (8.5-10.1) mg/dl Magnesium (1.8-2.4) mg/dl Total Bilirubin (0.2-1) mg/dl Direct Bilirubin (0-0.2) mg/dl AST (15-37) U/L ALT (12-78) U/L Alkaline Phosphatase (45-117) U/L Troponin I (0-0.045) ng/ml Total Protein (6.4-8.2) gm/dl Albumin (3.4-5.0) gm/dl Beta-Hydroxybutyric Acd (0.2-2.81) mg/dl Urine Color Urine Appearance (Clear) Urine pH (4.5-7.5) Ur Specific [place] (1.000-1.030) Urine Protein (Negative) Urine Glucose (UA) (Negative) Urine Ketones (Negative) Urine Blood (Negative) Urine Nitrite (Negative) Urine Bilirubin (Negative) Urine Urobilinogen (Negative) Ur Leukocyte Esterase (Negative) Blood Type Antibody Screen 08/28/18 08/28/18 Range/Units 19:40 21:10 WBC (4.8-10.8) K/uL RBC (4.2-5.4) M/uL Hgb (12.0-16.0) g/dL Hct (37-47) % MCV (80-100) fL MCH (25-34) pg MCHC (32-36) g/dL RDW Std Deviation (36.4-46.3) fL RDW Coeff of Maris (11.5-14.5) % Plt Count (130-400) K/uL MPV (7.4-10.4) fL Immature Gran % (Auto) % Neut % (Auto) % Lymph % (Auto) % Barnes % (Auto) % Eos % (Auto) % Baso % (Auto) % Immature Gran # (Auto) (0.00-0.02) K/uL Neut # (Auto) (1.4-6.5) K/uL Lymph # (Auto) (1.2-3.4) K/uL Barnes # (Auto) (0.11-0.59) K/uL Eos # (Auto) (0-0.5) K/uL Baso # (Auto) (0-0.2) K/uL PT (9.0-12.0) Seconds INR (0.9-1.1) APTT (21.0-31.0) Seconds PTT Ratio Sodium (136-145) mmol/L Potassium (3.5-5.1) mmol/L Chloride (98-107) mmol/L Carbon Dioxide (21-32) mmol/L Anion Gap (3-11) BUN (7-18) mg/dl Creatinine (0.6-1.2) mg/dl Est Cr Clr Drug Dosing ml/min Est GFR ( Amer) Est GFR (Non-Af Amer) BUN/Creatinine Ratio (10-20) Glucose (70-99) mg/dl POC Glucose 203 H (70-99) Calcium (8.5-10.1) mg/dl Magnesium (1.8-2.4) mg/dl Total Bilirubin (0.2-1) mg/dl Direct Bilirubin (0-0.2) mg/dl AST (15-37) U/L ALT (12-78) U/L Alkaline Phosphatase (45-117) U/L Troponin I (0-0.045) ng/ml Total Protein (6.4-8.2) gm/dl Albumin (3.4-5.0) gm/dl Beta-Hydroxybutyric Acd (0.2-2.81) mg/dl Urine Color Yellow Urine Appearance Clear (Clear) Urine pH 5.0 (4.5-7.5) Ur Specific [place] 1.039 H (1.000-1.030) Urine Protein Negative (Negative) Urine Glucose (UA) 3+ H (Negative) Urine Ketones Negative (Negative) Urine Blood Negative (Negative) Urine Nitrite Negative (Negative) Urine Bilirubin Negative (Negative) Urine Urobilinogen Negative (Negative) Ur Leukocyte Esterase Negative (Negative) Blood Type Antibody Screen Imaging Data Radiologist's Impression: Radiology results as stated below per my review and the radiologist's interpretation: CT OF THE HEAD WITHOUT CONTRAST CLINICAL HISTORY: Stroke evaluation COMPARISON STUDY: Head CT May 04, 2018. CT DOSE: 537.48 mGy.cm TECHNIQUE: Helical axial images of the head were obtained without IV contrast. Automated exposure control was utilized for the study. A dose lowering technique was utilized adhering to the principles of ALARA. FINDINGS: No acute intracranial hemorrhage, midline shift or mass effect is present. Ventricular system is normal. Basilar cisterns are patent. There are no extra-axial collections. White matter hypodensities are unchanged. A possible old lacunar infarct within the right thalamus is unchanged. There may be additional old bilateral lacunar infarcts. There are no findings to suggest acute dural sinus thrombosis or acute territorial infarct. There are no significant calvarial abnormalities. IMPRESSION: No acute intracranial findings. Electronically signed by: Ferdinand Arreola M.D. 08/28/2018 4:33 PM ECG Data Attestation: I personally reviewed and interpreted this ECG as follows: Indication: other (stroke-like symptoms) Rate (beats per minute): 93 Rhythm: normal sinus Findings: + other (limited interpretaton due to baseline artifact); no PVC and no ST elevation Blood Pressure Blood Pressure Findings: Elevated blood pressure MDM Narrative I did perform a limited focused review of portions of the patient's old chart on the electronic medical record. The patient was seen at the [facility] today at 1400 for a biopsy of her right ear and became dizzy following the procedure. I did evaluate the patient as noted above. Patient is presenting with dizziness starting at her appointment at her doctor's office. On exam here she appears to have some neurologic deficits. She is diffusely weak throughout her body but seems to have noticeable increased weakness on the right side and limb ataxia involving the right side. She is somewhat inconsistent with her neuro exam but I did call a stroke alert. IV access was established. The patient was placed on a continuous potline monitor. I did order and personally review the patient's 12-lead EKG as described above. Twelve-lead EKG is unremarkable. I did order and review the patient's blood work as noted in the electronic medical record. She is hyperglycemic. I did treat her with insulin IV. I did order a CT of the head. I did review the images myself as well as the radiology report as described above. There is no evidence of acute stroke. I did discuss the case with the [place] neurologist who evaluated the patient using telemedicine. She also got some mixed findings and so did not recommend IV TPA. The patient also does not wish to have IV TPA. The neurologist recommended she be hospitalized and have an MRI for further evaluation. I did discuss the case with the hospitalist and onsite case manager. I did discuss the test results with the patient. Impression & Plan Dizziness, Hyperglycemia, Neurological deficit present Discharge Plan Visit Data *Final* Discharge Date/Time: 08/28/18 20:01 Chief Complaint: Hyperglycemia Stated Complaint: HYPERGLYCEMIA,DIZZY ED Provider: Medardo Rendon Discharge Problem: Dizziness, Hyperglycemia, Neurological deficit present Patient Disposition: Admitted As Inpatient Discharge Instructions Interventions: ED Discharge Assessment Last Done: 08/28/18 20:01 The scribe's documentation has been prepared under my direction and personally reviewed by me in its entirety. I confirm that the note above accurately reflects all work, treatment, procedures, and medical decision making performed by me.
[2018-08-29] MEDS: SODIUM CHLORIDE 0.9% 1000ML 1,000 ML IV SCH ×2 (00:17→05:51)
[2018-08-29] MEDS: LEVOTHYROXINE SODIUM 137 MCG TABLET PO SCH (05:55)
[2018-08-29 06:24] LABS: Estimated Average Glucose 266 mg/dl; Hemoglobin A1C 10.9 % (4.5-5.6)
[2018-08-29 07:16] LABS: Basophils # (auto) 0.01 K/uL (0-0.2); Basophils % (auto) 0.1 %; Eosinophils % (auto) 1.2 %; Hematocrit (blood only) 37.5 % (37-47); Hemoglobin 12.7 g/dL (12.0-16.0); Immature Granulocytes # (auto) 0.03 K/uL (0.00-0.02); Immature Granulocytes % (auto) 0.4 %; Lymphocytes % (auto) 42.6 %; Mean Corpuscular Hgb Conc 33.9 g/dL (32-36); Mean Corpuscular Volume 86.8 fL (80-100); Mean Platelet Volume 9.8 fL (7.4-10.4); Monocytes # (auto) 0.47 K/uL (0.11-0.59); Monocytes % (auto) 5.7 %; Neutrophils # (auto) 4.11 K/uL (1.4-6.5); Platelet Count 214 K/uL (130-400); RDW Coefficient of Variation 13.7 % (11.5-14.5); RDW Standard Deviation 43.6 fL (36.4-46.3); Red Blood Count 4.32 M/uL (4.2-5.4); White Blood Count 8.22 K/uL (4.8-10.8)
[2018-08-29 07:52] LABS: Calcium 8.7 mg/dl (8.5-10.1); Creatinine Clr Calc Pharmacy 93.5 ml/min; Est GFR (African American) 111.4; Est GFR (Non-African American) 96.1; Potassium 3.7 mmol/L (3.5-5.1)
[2018-08-29] MEDS ORDERED: ENOXAPARIN INJ 30 MG/0.3 ML SYR SQ SCH (09:00)
[2018-08-29] MEDS: METOPROLOL SUCC 25MG EXT REL TAB PO SCH (09:44)
[2018-08-29] MEDS: ASPIRIN 81 MG ECTAB PO SCH (09:44)
[2018-08-29] MEDS: ARIPiprazole 5 MG TAB PO SCH (09:45)
[2018-08-29] MEDS: ROSUVASTATIN CALCIUM 5 MG TAB PO SCH (09:45)
[2018-08-29] MEDS: PARoxetine HCl 20 MG TAB PO SCH (09:45)
[2018-08-29] MEDS: DOCUSATE SODIUM 100 MG CAP PO SCH ×2 (09:45→20:32)
[2018-08-29] MEDS: INSULIN ASPART 100 UNITS/ML 3 ML PEN SC SCH ×4 (09:50→20:38)
[2018-08-29] MEDS: INSULIN GLARGINE SOLOSTAR 100 UNITS/ML 3 ML PEN SC SCH ×2 (09:50→20:38)
[2018-08-29] MEDS: ENOXAPARIN INJ 40 MG/0.4 ML SYR SQ SCH (10:29)
--- NOTE | 2018-08-29 11:53 | Neurology Consultation ---
Date of Consultation August 29, 2018 Assessment & Plan (1) TIA (transient ischemic attack): Suspected TIA with reported symptoms potentially localizing to the posterior circulation. Patient will need a brain MRI to exclude a small acute infarct. I would also recommend obtaining a CT angiogram of the head and neck to evaluate for vertebrobasilar insufficiency. I agree with daily low-dose aspirin as prescribed. Patient's blood pressure is appropriate. Consultations with PT/OT. History of Present Illness Reason for Consultation: TIA Requesting Physician: Elaine Serrano MD Attending Physician: Nik Hyatt DO History of Present Illness The patient is a 63-year old female who complains of an episode of dizziness with associated slurred speech and left facial numbness which began acutely yesterday afternoon after receiving some care at the wound clinic for a nonhealing right ear ulcer. She reports that her symptoms are resolved other than some slight numbness around the left corner of her mouth. She denies experiencing any associated headache, vision disturbance, or weakness of the limbs. A CT of the head revealed an old left thalamic infarct as well as several possible small bilateral lacunar infarcts. I reviewed the images as well as the radiologist interpretation of this test. Per my review, there is a chronic infarct within the left thalamus, not the right thalamus as indicated in the radiology report. A carotid ultrasound is unremarkable. No evidence for hemodynamically significant stenosis. An EKG reveals normal sinus rhythm, 93 bpm. The patient was not taking a daily antiplatelet medication as an outpatient although daily low-dose aspirin has been started during this hospitalization. Allergies Allergy/AdvReac Type Severity Reaction Status Date / Time cisapride Allergy Intermediate HIVES Verified 08/28/18 17:38 doxycycline Allergy Intermediate RASH Verified 08/28/18 17:38 lansoprazole Allergy Intermediate HIVES Verified 08/28/18 17:38 tetracycline Allergy Mild DOXYCYCLINE Verified 08/28/18 17:38 CAUSES RASH Home Medications Home Medications Medication Instructions Recorded Confirmed Type insulin glargine [Lantus Solostar 38 unit SUBCUT 05/04/18 08/28/18 History U-100 Insulin] levothyroxine 137 mcg PO QAM 05/04/18 08/28/18 History metformin 500 mg PO BID 05/04/18 08/28/18 History mirtazapine 30 mg PO HS 05/04/18 08/28/18 History paroxetine HCl 40 mg PO QAM 05/04/18 08/28/18 History aripiprazole 5 mg PO QAM 08/28/18 08/28/18 History insulin aspart U-100 [Novolog 0 unit SUBCUT UD 08/28/18 08/28/18 History Flexpen U-100 Insulin] Patient History Medical History Diabetes (Chronic) Acute gastritis (Resolved) Altered mental status Anxiety (Chronic) Chest pain (Resolved) Constipation (Acute) DKA (diabetic ketoacidoses) Dyslipidemia (Chronic) Fecal impaction (Resolved) HNP (herniated nucleus pulposus), lumbar (Chronic) Hypertension (Resolved) Hypokalemia (Resolved) Hypotension (Chronic) Intractable low back pain (Chronic) Lower extremity weakness (Chronic) Lumbar stenosis with neurogenic claudication (Resolved) Major depressive disorder, recurrent episode, severe with anxious distress ( Chronic) Suicide attempt (Chronic) Tachycardia (Chronic) Surgical History History of hysterectomy (Resolved) H/O cardiac catheterization (Resolved) Family History Other No pertinent family history in first degree relatives Social History marital status: Current Living Situation: Significant Other Other Information That Helps Us Care for You: No Feels Safe at Home: Yes Safety Concerns: Feels Safe At This Time Smoking Status: Never smoker Hx Alcohol Use: No Hx Substance Use: No Beliefs That Will Affect Care: None Preferred Language: Maltese Communication Ability: Impaired Communication Ability Comment: some difficulty with memory Tentering Machine Off Bearer Required: No Review of Systems Constitutional: no fever and no chills Eyes: no blind spots and no diplopia Ear, Nose, Mouth, Throat: no hearing loss Respiratory: no cough and no dyspnea Cardiovascular: no chest pain Gastrointestinal: no vomiting Genitourinary (Female): no dysuria Musculoskeletal: no myalgia Integumentary: as per Subjective / HPI; no rash Neurologic: as per Subjective / HPI Psychiatric: + depression and + anxiety Endocrine: + fatigue Hematologic / Lymphatic: no easy bleeding Physical Exam 2 Vital Signs (Past 24 Hours): Last Vital Signs Temp 36.6 C 08/29/18 11:25 Pulse 81 08/29/18 11:25 Resp 18 08/29/18 11:25 BP 129/82 08/29/18 11:25 Pulse Ox 98 08/29/18 11:25 Physical Exam: The patient is a well-developed well-nourished elderly female. She is lying comfortably in bed. The patient is alert and fully oriented. Recent and remote memory intact. Attention and concentration normal. Patient exhibits a normal spontaneous speech pattern as well as an age-appropriate fund of knowledge and normal vocabulary. Visual bella full to confrontation. Visual acuity normal. Pupils equal round react to light and accommodation. Eye movements normal. No nystagmus. Facial sensation intact. There is normal facial strength and symmetry. Hearing intact. Palate elevates to midline. Shoulder shrug intact. Tongue protrudes to midline. There is a length dependent deficit to all sensory modalities. Deep tendon reflexes are diffusely diminished. Plantar responses are silent bilaterally. There is slight dysmetria with finger to nose and heel to arguello on the right. There is no dysdiadochokinesia. Ophthalmoscopic examination reveals normal-appearing optic disks and posterior segments. No papilledema or hemorrhages. Carotid pulses normal bilaterally, no bruits to auscultation. Gait and station not tested due to safety concerns. Patient exhibits fairly normal strength for the arms and legs bilaterally, proximally and distally. However, movement initiation for the right arm and leg are slightly diminished as compared to the left. There is a slight right upper extremity pronator drift as well. Muscle tone normal throughout. No atrophy. No abnormal movements observed.
[2018-08-29] MEDS ORDERED: LORazepam 1 MG TAB PO STA (12:44)
[2018-08-29] MEDS ORDERED: LORazepam 1 MG TAB ONE (12:48)
--- NOTE | 2018-08-29 13:42 | Family Medicine Progress Note ---
Date of Service August 29, 2018 Assessment & Plan (1) Weakness: Weakness -Stroke/TIA protocol -CT-H negative - MRI: Punctate 3 mm hyperintense focus within the periventricular left temporal lobe on the diffusion-weighted sequence equivocal for a punctate acute infarct. -Carotid dopplers show no stenosis, anterograde vertebral flow -Pending MRI-B and CT-A per neuro recs -HgbA1C = 10.9% -TChol/Trigs/LDL/HDL 196/223/109/42 -Vitamin B12 = 591 - Suspect a large contribution was from hyperglycemia on a chronic neuropathy background. Management as below. T2DM with Diabetic Neuropathy -HgbA1c 10.9%. Suspect a fair amount her weakness is related to diabetic neuropathy and chronic in nature. -Lantus 40mg BID + ISS -B-hydroxybutyrate negative -Mirtazepine recently added. Suspect increased hunger/dietary intake with depression as a comorbid barrier to her diabetic regimen as precipitating factors in her worsening A1C. Altered mental status (improved): - Stroke protocol and glycemic management as above -Improved today, oriented x3, but remains weak. 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 metoprolol succinate 25mg LA Depression/Anxiety - BOX BLANK MACHINE OPERATOR paroxetine 40mg qAM - BOX BLANK MACHINE OPERATOR mirtazapine 30mg PO qHS - BOX BLANK MACHINE OPERATOR aripiprazole 5mg PO qAM Hypothyroid - BOX BLANK MACHINE OPERATOR Levothyroxine 137mcg PO daily Constipation - BOX BLANK MACHINE OPERATOR docusate 100mg PO BID Hyponatremia (resolved) -Initial 133, resolved to 137 with IVFM Diet: DM II VTE ppx: Enoxaparin SQ daily Code: Full (2) T2DM (type 2 diabetes mellitus): (3) Altered mental status: (4) Depression with anxiety: (5) Chronic skin ulcer of right ear: (6) Hypertension: (7) Hypothyroid: Supervising Physician Co-Signing Physician Notes I personally examined the patient and verified all garcia points of history and exam, discussed case, and agree with decision making with Dr Mckeon. Feeling better overall. Has a lot of questions about her testing. I tried to answer not only her specific questions, but to try to build a picture of her stroke, how it happened, the desperate need for better control of her metabolism , and then get into specific details on better diabetes management. Time in the room approximately 510, time out of the room approximately 545. Vitals noted, in general she is awake alert oriented x3 fatigued appearing but in no distress. HEENT normal cephalic atraumatic mucous membranes are moist. Lungs are unlabored no accessory muscle use good effort. Skin shows no rashes no pallor or icterus. CVA -Aspirin -Work on better sugar control, tighten insulins for now, extensively educated on why to care (high sugars clog arteries) the pathophysiology of insulin resistance, what types of carbs are likely driving her sugar, as well as modifying short acting insulin to cover her intake -Statinwe will want to optimize it, although we will need to discuss this with her further prior to discharge given that she may or may it sounds like it may have been from a prior statin and likely not relevant to her current care. We will discuss this further Hyperglycemic dehydrationimproved, sugar control as above otherwise. DVT prophylaxisLovenox Again greater than 30 minutes [id number] time in/time out as above noted Subjective Kourtney was admitted from the Ed yesterday for slurred speech, confusion, and weakness concerning for stroke. She has had a TIA in the past. Today she feels more well oriented, but still weak. She has had a mild, tense headhead bilaterally in her forehead since yesterday. She denies vision change, but feels like she has to work hard to focus today. Reports she slept OK about 7 hours. Denies chest pain, chest pressure, shortness of breath, difficulty breathing. Endorses tingling in her toes bilaterally at baseline for several years, but seems worse lately. Endorses some palpitations overnight. Deneis fevers, chills, sweats overnight. Review of Systems See HPI Physical Exam 2 Vital Signs (Past 24 Hours): Last Vital Signs Temp 36.6 C 08/29/18 11:25 Pulse 81 08/29/18 11:25 Resp 18 08/29/18 11:25 BP 129/82 08/29/18 11:25 Pulse Ox 98 08/29/18 11:25 Physical Exam: General: A&Ox3. NAD. Cooperative. HEENT: Atraumatic, normocephalic. EoM intact without nystagmus. PERLAA. Pulm: CTAB A&P. -wheezes, -rales, -rhonchi. Symmetrical chest rise. No increase work of breathing. No respiratory distress. Cardiac: RRR, -mrg. Radial pulses intact and symmetrical. PT pulses intact bilaterally. Abdominal: Nontender, nondistended, soft. BS present. Extremity: Arms with a very slight resting tremor ~3Hz R>L. Learning And Development Consultant strength, elbow flexion/ extension, wrist flexion/exension 4/5 with delayed activation on the R, 5/5 L. Sensation intact bilat. Knee flexion/extenion, ankle dorsi/plantarflexion 4-/5 bilaterally with delayed activation more prominent on the right. No ankle clonus bilaterally. Results & Data Laboratory Results Abnormal lab results 08/28/18 08/28/18 08/28/18 Range/Units 15:26 16:39 16:39 WBC 11.26 H (4.8-10.8) K/uL Immature Gran # (Auto) 0.03 H (0.00-0.02) K/uL Lymph # (Auto) 4.09 H (1.2-3.4) K/uL [place] # (Auto) 0.68 H (0.11-0.59) K/uL Sodium 133 L (136-145) mmol/L BUN/Creatinine Ratio (10-20) Glucose 354 H* (70-99) mg/dl POC Glucose 415 H* (70-99) Hemoglobin A1c (4.5-5.6) % AST 13 L (15-37) U/L Triglycerides (0-150) mg/dl Ur Specific Liberal (1.000-1.030) Urine Glucose (UA) (Negative) 08/28/18 08/28/18 08/28/18 Range/Units 16:39 16:43 17:15 WBC (4.8-10.8) K/uL Immature Gran # (Auto) (0.00-0.02) K/uL Lymph # (Auto) (1.2-3.4) K/uL [place] # (Auto) (0.11-0.59) K/uL Sodium (136-145) mmol/L BUN/Creatinine Ratio (10-20) Glucose (70-99) mg/dl POC Glucose 320 H 294 H (70-99) Hemoglobin A1c 10.9 H (4.5-5.6) % AST (15-37) U/L Triglycerides (0-150) mg/dl Ur Specific Liberal (1.000-1.030) Urine Glucose (UA) (Negative) 08/28/18 08/28/18 08/28/18 Range/Units 17:48 19:39 19:40 WBC (4.8-10.8) K/uL Immature Gran # (Auto) (0.00-0.02) K/uL Lymph # (Auto) (1.2-3.4) K/uL [place] # (Auto) (0.11-0.59) K/uL Sodium (136-145) mmol/L BUN/Creatinine Ratio (10-20) Glucose (70-99) mg/dl POC Glucose 202 H 183 H (70-99) Hemoglobin A1c (4.5-5.6) % AST (15-37) U/L Triglycerides (0-150) mg/dl Ur Specific Liberal 1.039 H (1.000-1.030) Urine Glucose (UA) 3+ H (Negative) 08/28/18 08/29/18 08/29/18 Range/Units 21:10 06:45 06:45 WBC (4.8-10.8) K/uL Immature Gran # (Auto) 0.03 H (0.00-0.02) K/uL Lymph # (Auto) 3.50 H (1.2-3.4) K/uL [place] # (Auto) (0.11-0.59) K/uL Sodium (136-145) mmol/L BUN/Creatinine Ratio 24.0 H (10-20) Glucose 235 H (70-99) mg/dl POC Glucose 203 H (70-99) Hemoglobin A1c (4.5-5.6) % AST (15-37) U/L Triglycerides 223 H (0-150) mg/dl Ur Specific Liberal (1.000-1.030) Urine Glucose (UA) (Negative) 08/29/18 08/29/18 Range/Units 07:33 11:31 WBC (4.8-10.8) K/uL Immature Gran # (Auto) (0.00-0.02) K/uL Lymph # (Auto) (1.2-3.4) K/uL [place] # (Auto) (0.11-0.59) K/uL Sodium (136-145) mmol/L BUN/Creatinine Ratio (10-20) Glucose (70-99) mg/dl POC Glucose 241 H 277 H (70-99) Hemoglobin A1c (4.5-5.6) % AST (15-37) U/L Triglycerides (0-150) mg/dl Ur Specific Liberal (1.000-1.030) Urine Glucose (UA) (Negative) Medications Administered Current Inpatient Medications Acetaminophen (Tylenol) 650 mg PO Q4H PRN PRN Reason: Pain or Fever Stop: 09/27/18 18:43 Al Hydrox/Mg Hydrox/Simethicone (Maalox) 15 ml PO Q4H PRN PRN Reason: Dyspepsia Stop: 09/27/18 18:43 Aripiprazole ([facility]ilify) [facility] Stop: 09/28/18 08:59 Last Admin: 08/29/18 09:45 Dose: 5 mg Aspirin (Ecotrin Ectab) 81 mg PO [facility] Stop: 09/28/18 08:59 Last Admin: 08/29/18 09:44 Dose: 81 mg Dextrose (Dextrose 50%) 25 - 50 ml IV UD PRN; Protocol PRN Reason: Hypoglycemia Protocol Stop: 09/27/18 18:53 Docusate Sodium (Colace) 100 mg PO BID [facility] Stop: 09/28/18 08:59 Last Admin: 08/29/18 09:45 Dose: 100 mg Enoxaparin Sodium (Lovenox) 40 mg SQ Q24H [facility] Stop: 09/28/18 08:59 Last Admin: 08/29/18 10:29 Dose: Not Given Glucagon (Glucagen) 1 mg SQ UD PRN; Protocol PRN Reason: Hypoglycemia Protocol Stop: 09/27/18 18:53 Glucose (Dex4 Glucose) 4 - 8 tabs PO UD PRN; Protocol PRN Reason: Hypoglycemia Protocol Stop: 09/27/18 18:53 Glucose (Glucose 40%) 15 - 30 gm PO UD PRN; Protocol PRN Reason: Hypoglycemia Protocol Stop: 09/27/18 18:53 Insulin Aspart (Novolog Flexpen) 0 units SC ACHS [facility] Stop: 09/27/18 20:59 Last Admin: 08/29/18 12:50 Dose: 11 units Insulin Glargine (Lantus Solostar Pen) 20 units SC BID [facility] Stop: 09/27/18 20:59 Last Admin: 08/29/18 09:50 Dose: 20 units Levothyroxine Sodium (Levothyroxine Sodium) 137 mcg PO DAILYBB [facility] Stop: 09/28/18 06:29 Last Admin: 08/29/18 05:55 Dose: 137 mcg Magnesium Hydroxide (Milk Of Magnesia) 30 ml PO Q12H PRN PRN Reason: Constipation Stop: 09/27/18 18:43 Metoprolol Succinate (Toprol Xl) 25 mg PO QAM [facility] Stop: 09/28/18 08:59 Last Admin: 08/29/18 09:44 Dose: 25 mg Mirtazapine (Remeron) 30 mg PO HS [facility] Stop: 09/27/18 20:59 Last Admin: 08/28/18 22:15 Dose: 30 mg Miscellaneous (Carbohydrates For Hypoglycemia) 15 - 30 gm PO UD PRN PRN Reason: Hypoglycemia Treatment Stop: 09/27/18 18:53 Miscellaneous Information (Pharmacist Discharge Med Rec Consult) 1 ea N/A UD PRN PRN Reason: Consult Stop: 09/27/18 18:43 Nitroglycerin (Nitrostat) 0.4 mg SL UD PRN PRN Reason: Chest Pain Stop: 09/27/18 18:43 Ondansetron HCl (Zofran) 4 mg IV Q6H PRN PRN Reason: Nausea Stop: 09/27/18 18:43 Paroxetine HCl (Paxil) 40 mg PO QAM [facility] Stop: 09/28/18 08:59 Last Admin: 08/29/18 09:45 Dose: 40 mg Polyethylene Glycol (Miralax Powder Packet) 17 gm PO DAILY PRN PRN Reason: Constipation Stop: 09/27/18 18:43 Rosuvastatin Calcium (Crestor) 5 mg PO QAM [facility] Stop: 09/28/18 08:59 Last Admin: 08/29/18 09:45 Dose: 5 mg Resident Activity Tracking Resident Involvement: Resident Care Provided Care Provided: Adult Hospital Medicine
[2018-08-29] MEDS ORDERED: DiphenhydrAMINE HCL 50 MG/ML VIAL ONE (14:21)
[2018-08-29] MEDS ORDERED: GADOBUTROL 65ML VIAL IV PRN (14:21)
--- NOTE | 2018-08-29 14:37 | Magnetic Resonance Report ---
MRI OF THE BRAIN WITHOUT AND WITH IV CONTRAST CLINICAL HISTORY: Transient ischemic attack. COMPARISON STUDY: MRI the brain March 25, 2016, head CT August 28, 2018. TECHNIQUE: Utilizing a 1.5 Loretta magnet and dedicated coil, multiplanar, multiecho imaging of the br ain was performed pre and postcontrast administration. IV administration of 8 mL of Gadavist contras t was uneventful. FINDINGS: Note is made of a 3 mm hyperintense focus within the periventricular left temporal lobe rodeirck wn on axial diffusion-weighted image 10 of 44. This appears to be hypointense on the ADC map although correlation is difficult given the small size. There is corresponding minimal signal abnormality on the coronal FLAIR sequence. Otherwise, the diffusion-weighted sequence is normal. Ventricular system is normal. The basilar cisterns are patent. There are no extra axial collections. Exam is mildly comp romised by motion artifact. No intracranial mass or pathologic enhancement. Numerous white matter T2 hyperintense foci suggest small vessel disease. The orbits are unremarkable. IMPRESSION: 1. Punctate 3 mm hyperintense focus within the periventricular left temporal lobe on the diffusion-we ighted sequence. Correlation with ADC map is difficult given small size. This is equivocal for a [facility] acute infarct. 2. No acute intracranial hemorrhage or mass effect. 3. No intracranial mass or pathologic enhancement. Electronically signed by: Ferdinand Arreola M.D. 08/29/2018 2:35 PM
[2018-08-29] MEDS ORDERED: DiphenhydrAMINE HCL 50 MG/ML VIAL IV STA (14:38)
[2018-08-29] MEDS: MIRTAZAPINE TAB 15 MG TAB PO SCH (20:32)
[2018-08-30] MEDS: LEVOTHYROXINE SODIUM 137 MCG TABLET PO SCH (05:50)
[2018-08-30 06:25] LABS: Basophils # (auto) 0.01 K/uL (0-0.2); Basophils % (auto) 0.1 %; Eosinophils # (auto) 0.09 K/uL (0-0.5); Eosinophils % (auto) 0.9 %; Hematocrit (blood only) 40.5 % (37-47); Hemoglobin 13.3 g/dL (12.0-16.0); Immature Granulocytes # (auto) 0.02 K/uL (0.00-0.02); Immature Granulocytes % (auto) 0.2 %; Lymphocytes # (auto) 4.11 K/uL (1.2-3.4); Mean Corpuscular Hgb Conc 32.8 g/dL (32-36); Mean Corpuscular Volume 87.7 fL (80-100); Mean Platelet Volume 9.8 fL (7.4-10.4); Monocytes # (auto) 0.38 K/uL (0.11-0.59); Neutrophils # (auto) 4.94 K/uL (1.4-6.5); Neutrophils % (auto) 51.8 %; Platelet Count 227 K/uL (130-400); RDW Standard Deviation 44.8 fL (36.4-46.3); Red Blood Count 4.62 M/uL (4.2-5.4); White Blood Count 9.55 K/uL (4.8-10.8)
[2018-08-30 07:01] LABS: BUN Creatinine Ratio 22.5 (10-20); Calcium 8.9 mg/dl (8.5-10.1); Creatinine Clr Calc Pharmacy 84.2 ml/min; Est GFR (African American) 107.6; Est GFR (Non-African American) 92.9; Potassium 3.8 mmol/L (3.5-5.1)
[2018-08-30] MEDS: ARIPiprazole 5 MG TAB PO SCH (08:32)
[2018-08-30] MEDS: ROSUVASTATIN CALCIUM 5 MG TAB PO SCH (08:33)
[2018-08-30] MEDS: DOCUSATE SODIUM 100 MG CAP PO SCH ×2 (08:33→20:23)
[2018-08-30] MEDS: ASPIRIN 81 MG ECTAB PO SCH (08:33)
[2018-08-30] MEDS: METOPROLOL SUCC 25MG EXT REL TAB PO SCH (08:33)
[2018-08-30] MEDS: PARoxetine HCl 20 MG TAB PO SCH (08:33)
[2018-08-30] MEDS: ENOXAPARIN INJ 40 MG/0.4 ML SYR SQ SCH (08:34)
[2018-08-30] MEDS: INSULIN GLARGINE SOLOSTAR 100 UNITS/ML 3 ML PEN SC SCH ×2 (08:34→20:24)
[2018-08-30] MEDS: INSULIN ASPART 100 UNITS/ML 3 ML PEN SC SCH ×4 (08:36→20:25)
--- NOTE | 2018-08-30 09:45 | Neurology Progress Note ---
Date of Service August 30, 2018 Assessment & Plan (1) CVA (cerebral vascular accident): Small acute, ischemic left medial temporal lobe/periventricular infarct. Location of this infarct does not correlate very well with her reported numbness along the corner of the left mouth. I suspect that her examination finding of mild right-sided dysmetria is related to her multiple chronic subcortical lacunar infarcts (L>R). Poorly controlled diabetes mellitus probable significant risk factor. Follow-up with results of CT angiography of the head and neck. Continue with daily low-dose aspirin. Patient blood pressure is appropriate. Patient will probably benefit from additional counseling regarding the importance of monitoring the status of her diabetes mellitus and appropriately controlling her blood sugars. Consultations with PT/OT Please contact me if I may be of further assistance. Subjective Follow-up for stroke The patient is a 63-year old female who presented yesterday with slurred speech , numbness, and weakness. Her symptoms have resolved other than a mild area of numbness is along the left corner of the mouth. She currently denies headache, vision change, vertigo, or weakness of the limbs. Constitutional: no fever and no chills Eyes: no blind spots and no diplopia Neurologic: as per Subjective / HPI Physical Exam 2 Vital Signs (Past 24 Hours): Last Vital Signs Temp 36.5 C 08/30/18 07:16 Pulse 70 08/30/18 07:16 Resp 18 08/30/18 07:16 BP 137/84 08/30/18 07:16 Pulse Ox 98 08/30/18 07:16 Physical Exam: The patient is alert and fully oriented. Recent and remote memory intact. Attention and concentration normal. Patient exhibits a normal spontaneous speech pattern. She is able to name objects and repeat phrases. No dysarthria. Patient exhibits an age-appropriate fund of knowledge and normal vocabulary. Visual bella full to confrontation. Visual acuity normal. Pupils equal round react to light and accommodation. Eye movements normal. Facial sensation intact. There is no facial droop or weakness. Hearing intact. Palate elevates to midline. Shoulder shrug intact. Tongue protrudes to midline. There is a length dependent deficit to all sensory modalities. Deep tendon reflexes are diminished at the ankles. Plantar responses downgoing. There is slight dysmetria finger to nose and heel to arguello on the right. Results & Data Laboratory Results A recent hemoglobin A1c was 10.9 Diagnostic Findings A brain MRI completed yesterday reveals a small acute infarct located within the left periventricular temporal lobe. I reviewed the images as well as the radiologist interpretation of this test. A carotid Doppler was unremarkable. CT angiography of the head and neck are pending.
[2018-08-30] MEDS ORDERED: OPTIRAY 320 125ml IV PRN (10:12)
--- NOTE | 2018-08-30 10:56 | CT Scan Report ---
CT ANGIOGRAM OF THE BRAIN; CT ANGIOGRAM OF THE NECK CLINICAL HISTORY: Vertebrobasilar insufficiency. COMPARISON STUDY: CT of the brain dated 08/28/2018. MRI of the brain dated 08/29/2018. Carotid artery ultrasound dated 08/28/2018. Chest CT dated 07/31/2016. TECHNIQUE: Following the IV administration of 120 of Optiray 320, CT angiogram of the head and neck w as performed from the aortic arch to the vertex. Images are reviewed in the axial, sagittal, and mundo nal planes. 3-D MIPS images are created and assessed. IV contrast was administered without complicati on. All measurements were calculated based on NASCET criteria. A dose lowering technique was utilize d adhering to the principles of ALARA. CT DOSE: 595.64 mGy.cm FINDINGS: Brain parenchyma: The brain parenchyma is normal in appearance. There is no hemorrhage, mass effect, or evidence of acute territorial ischemia by CT criteria. There is no evidence of enhancing mass lesi on on the angiogram phase images. The ventricles, sulci, and cisterns are normal in configuration. Gr ay-white matter differentiation is preserved. No extra-axial fluid collection is seen. Thoracic aorta: Visualized portions of the thoracic aorta are normal in caliber. The aortic arch demo nstrates standard 3-vessel anatomy. Right carotid arterial system: The right common carotid artery is widely patent, as are the right int ernal and external carotid arteries. Mild atherosclerotic calcification is noted in the carotid bulb. Left carotid arterial system: The left common carotid artery is widely patent, as are the left internal wholesaler al and external carotid arteries. Vertebral arteries: The vertebral arteries are widely patent and codominant. Subclavian arteries: Widely patent bilaterally. Intracranial vasculature: There is mild atherosclerotic calcification of the cavernous carotid arteri es. The internal carotid arteries are patent at the skull base, as are the anterior and middle cerebr al arteries bilaterally. The vertebrobasilar system and posterior cerebral arteries are widely patent . The vertebral arteries are codominant. There is no aneurysm, high-grade stenosis, or focal vessel c ut off seen throughout the intracranial circulation. Jugular veins: Widely patent bilaterally. Dural sinuses: Patent. Lung apices: There is a 5 mm nodule at the left apex seen on image #50. This is unchanged from 2015 and of doubtful significance given over 2 years of stability. Partially visualized upper lobe guillermo ng parenchyma is otherwise clear. Soft tissues: The visualized pharyngeal soft tissues are normal in appearance noting angiographic pha se technique. The oropharyngeal airway appears widely patent. The thyroid gland is atrophic. The sali vary glands are normal in appearance. No cervical lymphadenopathy is seen. Skeletal structures: The calvarium appears intact. The cervical spine appears maintained noting mild spondylosis. Orbits: The bony orbits are intact. Orbital contents are normal in appearance. Sinuses and mastoids: There is trace mucosal thickening within the right sphenoid sinus. The remainin g paranasal sinuses are clear. The mastoid air cells are well pneumatized. IMPRESSION: 1. There is no hemorrhage, mass effect, or evidence of acute territorial ischemia by CT criteria on t his angiographic phase examination. 2. Unremarkable CT angiogram of the brain. 3. Unremarkable CT angiogram of the neck. Electronically signed by: Bright Cruz M.D. 08/30/2018 10:54 AM
--- NOTE | 2018-08-30 11:01 | Family Medicine Progress Note ---
Date of Service August 30, 2018 Assessment & Plan (1) Weakness: Weakness -Stroke/TIA protocol -CT-H negative - CT angio head/neck with no acute findings, no mass/mass effect, no carotid stenosis - MRI: Punctate 3 mm hyperintense focus within the periventricular left temporal lobe on the diffusion-weighted sequence equivocal for a punctate acute infarct. -Carotid dopplers show no stenosis, anterograde vertebral flow -Neck and head CTA unremarkable. -HgbA1C = 10.9% -TChol/Trigs/LDL/HDL 196/223/109/42 -Vitamin B12 = 591 - Suspect a large contribution was from hyperglycemia on a chronic neuropathy background. Management as below. T2DM with Diabetic Neuropathy -HgbA1c 10.9%. Suspect a fair amount her weakness is related to diabetic neuropathy and chronic in nature. -B-hydroxybutyrate negative -Mirtazapine recently added. Some element of dietary increase over last several months. - Extensive DM education today and yesterday with Dr. Hyatt. - Currently on glargine 25U BID + SSI, will continue basal-bolus on d/c Altered mental status: - Oriented to name and month only today. Not oriented to year, president, place , date, or day of week. Did recieve 50mg diphenyhydramine prior to dye load for CT-angio. Orientation improved in the afternoon x3. 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 metoprolol succinate 25mg LA Depression/Anxiety - [employer] paroxetine 40mg qAM - [employer] mirtazapine 30mg PO qHS - [employer] aripiprazole 5mg PO qAM Hypothyroid - [employer] Levothyroxine 137mcg PO daily Constipation - [employer] docusate 100mg PO BID Hyponatremia (resolved) -Initial 133, resolved to 137 with IVFM Diet: DM II VTE ppx: Enoxaparin SQ daily Code: Full Dispo: Likely home tomorrow (2) T2DM (type 2 diabetes mellitus): (3) Altered mental status: (4) Depression with anxiety: (5) Chronic skin ulcer of right ear: (6) Hypertension: (7) Hypothyroid: Supervising Physician Co-Signing Physician Notes I personally examined the patient and verified all garcia points of history and exam, discussed case, and agree with decision making with Dr Mckeon. Feeling better overall. Extensive discussion on better insulin management. She actually expresses a very good understanding of basal bolus dosing with "soft carb counting" although at the same time appearing to be related to anxiety about the situation she notes that she is confused about it. That said when I ask her questions and have her teach back to me she does extremely well and her understanding of it. Prolonged time in the room, time in was approximately 4:30 PM time out was approximately 5:25 PM Vitals noted, in general she is awake alert oriented x3 fatigued appearing but in no distress. HEENT normal cephalic atraumatic mucous membranes are moist. Lungs are unlabored no accessory muscle use good effort. Skin shows no rashes no pallor or icterus. CVA -Aspirin -Continue to work on better sugar control, tighten insulins for now, extensively educated, with a brief reiteration on why to care (high sugars clog arteries) the pathophysiology of insulin resistance, what types of carbs are likely driving her sugar; an extensive discussion on the actual basal bolus dosing. Discharge instructions created in this regard for patient had a time. -Statinwe will want to optimize it, although we will need to discuss this with her further prior to discharge given that she may or may it sounds like it may have been from a prior statin and likely not relevant to her current care. This will need to be discussed further, patient was doing well with understanding basal bolus dosing, but did seem a bit overwhelmed, and I felt it better to not add side issues to the discussion. That said certainly something on the order of 20 mg of rosuvastatin should be started at discharge unless there is a clear reason why not Hyperglycemic dehydrationimproved, otherwise as above DVT prophylaxisLovenox Again approximately 55 minutes [id number] with the time in/time out as above noted Subjective Kourtney feels anxious today. She wants to talk about her blood sugar management. She is also anxious about getting her MR-A. Slept OK, feels ok otherwise. No lightheadedness, dizziness, shortness of breath , chest pain, dyspnea, numbness, tingling, fever, chills, sweats at time of visit. She still feels globally weak, but was feeling a little better earlier. She recieved diphenhydramine 50mg half an hour prior to visit in anticipation of MR- A, is feeling a little sedated. Review of Systems See HPI Physical Exam 2 Vital Signs (Past 24 Hours): Last Vital Signs Temp 36.5 C 08/30/18 07:16 Pulse 70 08/30/18 10:42 Resp 18 08/30/18 07:16 BP 137/84 08/30/18 07:16 Pulse Ox 98 08/30/18 07:16 Physical Exam: General: Oriented to name and month only. NAD. Cooperative. HEENT: Atraumatic, normocephalic. EoM intact without nystagmus. PERLAA. Pulm: CTAB A&P. -wheezes, -rales, -rhonchi. Symmetrical chest rise. No increase work of breathing. No respiratory distress. Cardiac: RRR, -mrg. Abdominal: Nontender, nondistended, soft. BS present. Extremity:No tremor appreciated today. Strength improved today. Lead Sustainability Specialist strength, ankle dorsi/plantarflexion, knee extension, hip flexion 5/5 Results & Data Laboratory Results Abnormal lab results 08/29/18 08/30/18 08/30/18 Range/Units 20:04 06:09 06:09 Lymph # (Auto) 4.11 H (1.2-3.4) K/uL Chloride 108 H (98-107) mmol/L BUN/Creatinine Ratio 22.5 H (10-20) Glucose 128 H (70-99) mg/dl POC Glucose 263 H (70-99) 08/30/18 08/30/18 08/30/18 Range/Units 07:28 11:18 11:19 Lymph # (Auto) (1.2-3.4) K/uL Chloride (98-107) mmol/L BUN/Creatinine Ratio (10-20) Glucose (70-99) mg/dl POC Glucose 121 H 381 H* 348 H (70-99) 08/30/18 08/30/18 08/30/18 Range/Units 15:31 15:32 15:51 Lymph # (Auto) (1.2-3.4) K/uL Chloride (98-107) mmol/L BUN/Creatinine Ratio (10-20) Glucose (70-99) mg/dl POC Glucose 54 L* 54 L* 128 H (70-99) Medications Administered Current Inpatient Medications Acetaminophen (Tylenol) 650 mg PO Q4H PRN PRN Reason: Pain or Fever Stop: 09/27/18 18:43 Al Hydrox/Mg Hydrox/Simethicone (Maalox) 15 ml PO Q4H PRN PRN Reason: Dyspepsia Stop: 09/27/18 18:43 Aripiprazole (Abilify) 5 mg PO QAM [facility] Stop: 09/28/18 08:59 Last Admin: 08/30/18 08:32 Dose: 5 mg Aspirin (Ecotrin Ectab) 81 mg PO QAM [facility] Stop: 09/28/18 08:59 Last Admin: 08/30/18 08:33 Dose: 81 mg Dextrose (Dextrose 50%) 25 - 50 ml IV UD PRN; Protocol PRN Reason: Hypoglycemia Protocol Stop: 09/27/18 18:53 Docusate Sodium (Colace) 100 mg PO BID [facility] Stop: 09/28/18 08:59 Last Admin: 08/30/18 08:33 Dose: 100 mg Enoxaparin Sodium (Lovenox) 40 mg SQ Q24H [facility] Stop: 09/28/18 08:59 Last Admin: 08/30/18 08:34 Dose: 40 mg Gadobutrol (Gadavist 65ml) 8 ml IV ONCE PRN PRN Reason: Interaction Checking Stop: 09/02/18 14:20 Last Admin: 08/29/18 14:23 Dose: 8 ml Glucagon (Glucagen) 1 mg SQ UD PRN; Protocol PRN Reason: Hypoglycemia Protocol Stop: 09/27/18 18:53 Glucose (Dex4 Glucose) 4 - 8 tabs PO UD PRN; Protocol PRN Reason: Hypoglycemia Protocol Stop: 09/27/18 18:53 Glucose (Glucose 40%) 15 - 30 gm PO UD PRN; Protocol PRN Reason: Hypoglycemia Protocol Stop: 09/27/18 18:53 Insulin Aspart (Novolog Flexpen) 0 units SC ACHS [facility] Stop: 09/27/18 20:59 Last Admin: 08/30/18 17:37 Dose: 4 units Insulin Glargine (Lantus Solostar Pen) 25 units SC BID [facility] Stop: 09/28/18 20:59 Last Admin: 08/30/18 08:34 Dose: 25 units Ioversol (Optiray 320 125ml) 120 ml IV ONCE PRN PRN Reason: Interaction Checking Stop: 09/03/18 10:11 Last Admin: 08/30/18 10:13 Dose: 120 ml Levothyroxine Sodium (Levothyroxine Sodium) 137 mcg PO DAILYBB [facility] Stop: 09/28/18 06:29 Last Admin: 08/30/18 05:50 Dose: 137 mcg Magnesium Hydroxide (Milk Of Magnesia) 30 ml PO Q12H PRN PRN Reason: Constipation Stop: 09/27/18 18:43 Metoprolol Succinate (Toprol Xl) 25 mg PO QAM [facility] Stop: 09/28/18 08:59 Last Admin: 08/30/18 08:33 Dose: 25 mg Mirtazapine (Remeron) 30 mg PO HS [facility] Stop: 09/27/18 20:59 Last Admin: 08/29/18 20:32 Dose: 30 mg Miscellaneous (Carbohydrates For Hypoglycemia) 15 - 30 gm PO UD PRN PRN Reason: Hypoglycemia Treatment Stop: 09/27/18 18:53 Last Admin: 08/30/18 15:34 Dose: 15 gm Miscellaneous Information (Pharmacist Discharge Med Rec Consult) 1 ea N/A UD PRN PRN Reason: Consult Stop: 09/27/18 18:43 Nitroglycerin (Nitrostat) 0.4 mg SL UD PRN PRN Reason: Chest Pain Stop: 09/27/18 18:43 Ondansetron HCl (Zofran) 4 mg IV Q6H PRN PRN Reason: Nausea Stop: 09/27/18 18:43 Paroxetine HCl (Paxil) 40 mg PO [facility] Stop: 09/28/18 08:59 Last Admin: 08/30/18 08:33 Dose: 40 mg Polyethylene Glycol (Miralax Powder Packet) 17 gm PO DAILY PRN PRN Reason: Constipation Stop: 09/27/18 18:43 Rosuvastatin Calcium (Crestor) 5 mg PO [facility] Stop: 09/28/18 08:59 Last Admin: 08/30/18 08:33 Dose: 5 mg
[2018-08-30] MEDS: MIRTAZAPINE TAB 15 MG TAB PO SCH (20:23)
[2018-08-31] MEDS: LEVOTHYROXINE SODIUM 137 MCG TABLET PO SCH (06:22)
[2018-08-31] MEDS: ASPIRIN 81 MG ECTAB PO SCH (07:51)
[2018-08-31] MEDS: ROSUVASTATIN CALCIUM 5 MG TAB PO SCH (07:51)
[2018-08-31] MEDS: PARoxetine HCl 20 MG TAB PO SCH (07:51)
[2018-08-31] MEDS: METOPROLOL SUCC 25MG EXT REL TAB PO SCH (07:52)
[2018-08-31] MEDS: DOCUSATE SODIUM 100 MG CAP PO SCH (07:52)
[2018-08-31] MEDS: ARIPiprazole 5 MG TAB PO SCH (07:52)
[2018-08-31] MEDS: INSULIN GLARGINE SOLOSTAR 100 UNITS/ML 3 ML PEN SC SCH (08:32)
[2018-08-31] MEDS: INSULIN ASPART 100 UNITS/ML 3 ML PEN SC SCH ×3 (08:32→17:22)
[2018-08-31] MEDS: ENOXAPARIN INJ 40 MG/0.4 ML SYR SQ SCH (08:33)
[2018-08-31 08:48] LABS: Basophils # (auto) 0.02 K/uL (0-0.2); Basophils % (auto) 0.2 %; Eosinophils # (auto) 0.17 K/uL (0-0.5); Eosinophils % (auto) 1.8 %; Hematocrit (blood only) 39.5 % (37-47); Hemoglobin 13.3 g/dL (12.0-16.0); Immature Granulocytes # (auto) 0.03 K/uL (0.00-0.02); Immature Granulocytes % (auto) 0.3 %; Lymphocytes % (auto) 40.3 %; Mean Corpuscular Hgb Conc 33.7 g/dL (32-36); Mean Platelet Volume 9.7 fL (7.4-10.4); Monocytes # (auto) 0.63 K/uL (0.11-0.59); Monocytes % (auto) 6.7 %; Neutrophils # (auto) 4.78 K/uL (1.4-6.5); Neutrophils % (auto) 50.7 %; Platelet Count 228 K/uL (130-400); RDW Coefficient of Variation 14.1 % (11.5-14.5); RDW Standard Deviation 45.3 fL (36.4-46.3); Red Blood Count 4.49 M/uL (4.2-5.4); White Blood Count 9.43 K/uL (4.8-10.8)
[2018-08-31 09:22] LABS: BUN Creatinine Ratio 17.2 (10-20); Calcium 9.5 mg/dl (8.5-10.1); Est GFR (African American) 105.8; Est GFR (Non-African American) 91.3; Potassium 3.9 mmol/L (3.5-5.1)
[2018-08-31] MEDS ORDERED: STROKE PATIENT DISCHARGE STA (17:49)
--- NOTE | 2018-08-31 20:01 | Discharge Summary ---
Date of Service August 31, 2018 Admission HPI Per Admitting Provider 63 yo F w/ pMHx DMII, HTN, HLD, ambulatory dysfunction, multiple psych issues, and h/o of TIA was brought to the ED today by her daughter after the patient was noted to have some confusion and slurred speech earlier today. Patient notes she was feeling slightly unwell today. She had an appointment at the wound clinic for ongoing management of non-healing ear wound, and en route her daughter noted patient had confused her and her granddaughter. During the appointment health care providers noted she was slurring her speech slightly. They did check her sugars at the time and noted they were elevated and advised she go to the ED. Since arrival in the ED the patient feels slightly better. She states she has been well and denies fevers/chills, headaches (though she describes some photophobia), new vision changes, CP, SOB, N/V, abdominal pain, changes in stool habits. She does note having dysuria and urinary frequency over the last few days. She also notices that though she has chronic ambulatory dysfunction secondary to a fall/back trauma s/p surgery a few years ago that her legs feel weak with worsening numbness and tingling today. At baseline she ambulates with a cane or walker and denies any recent falls or LOC. At baseline patient states she has adequate hydration. She notes that her A1c's have always been well controlled, her last A1c on 02/07/18 wer 6.7 on a regimen of metformin BID and Lantus nightly. She does not check her sugars on a daily basis. Her boyfriend states that she is not a good eater, and her diet consists of cereal on most days. Of note, patient had a similar admission in 2017. Regarding mediation changes, patient admits that she no longer takes her aspirin , she had not started her low-dose rosuvastatin to date, and review of outside records show aripiprazole was a recent addition to her medication. Also of note patient sees neurology at [place]. Outpatient records review a recent head MRI (report noted in results section) ED course: IV insulin PMHx: - DMII with peripheral neuropathy - HTN - HLD - Chronic back pain - h/o TIA - Depression - Anxiety - Panic attacks - Gout PSHx: - Lap AKRIN - Thyroid ablation - Low back surgery with fusion - Tonsillectomy SHx: - Never smoker - No ETOh use Principal Diagnosis Weakness 2/2 Uncontrolled T2DM with Neuropathy Discharge Exam General: A&Ox3. NAD. Cooperative. HEENT: Atraumatic, normocephalic. EoM intact without nystagmus. PERLAA. Pulm: CTAB A&P. -wheezes, -rales, -rhonchi. Symmetrical chest rise. No increase work of breathing. No respiratory distress. Cardiac: RRR, -mrg. Abdominal: Nontender, nondistended, soft. BS present. Extremity:No tremor appreciated today. Strength improved today. Home Service Technician strength, ankle dorsi/plantarflexion, knee extension, hip flexion 12/08 Discharge Data Allergies Allergy/AdvReac Type Severity Reaction Status Date / Time cisapride Allergy Intermediate HIVES Verified 08/28/18 17:38 doxycycline Allergy Intermediate RASH Verified 08/28/18 17:38 lansoprazole Allergy Intermediate HIVES Verified 08/28/18 17:38 tetracycline Allergy Mild DOXYCYCLINE Verified 08/28/18 17:38 CAUSES RASH gadobutrol [From Gadavist] AdvReac Intermediate Hives Unverified 08/29/18 14:49 Consultations 08/28/18 17:48 ED Decision to Admit Stat 08/28/18 18:47 Consult Case Management - Discharge Planning Routine Consult Neurology Routine Ordered Studies 08/28/18 16:16 CT head/brain wo con Stat 08/28/18 18:49 US carotid doppler BI Routine 08/29/18 12:06 MR brain wo/w con Routine 08/29/18 12:08 CT angio head w con Routine CT angio neck with con Routine Hospital Course (1) Weakness: Kourtney is a 63yo F with a PMHx of uncontrolled diabetes with an A1C increase from <7 to 10.9% in the last year, TIA, Depression/Anxiety, and cardiac catheterization who presented for evaluation of weakness with concern for stroke. Kourtney was admitted with globalized weakness worse in her lower legs bilaterally. She was admitted on Stroke/TIA protocol. Neurology was consulted. Initial CT-H was negative. Carotid dopplers show no stenosis, anterograde vertebral flow. CT angio head/neck with no acute findings, no mass/mass effect, no carotid stenosis. MRI showed punctate 3 mm hyperintense focus within the periventricular left temporal lobe on the diffusion-weighted sequence equivocal for a punctate acute infarct. This was not felt to be the major contributor to her weakness. -Neck and head CTA unremarkable. Her HgbA1C was 10.9%, TChol/Trigs /LDL/HDL were 196/223/109/42. Her vitamin B12 was normal. Her glucose on admission was 354. Suspected a large contribution was from hyperglycemia on a chronic neuropathy background. She was treated as below with gradual improvement in her strength, was able to ambulate with her walker at close to her HELICOPTER DISPATCHER admit at time of discharge. (2) T2DM (type 2 diabetes mellitus): Her glucose on admit was 354 with a HgbA1c 10.9%. B-hydroxybutyrate negative. She noted that she had recently had mirtazapine recently added and had some element of dietary increase over last several months but ate mostly cereal. Extensive DM education was provided by the resident and attending physicians, insulin requirements were glargine 50U daily with SSI of ~45U per day. She experienced one low of 54. She was discharged on glargine 50U with Humalog 10U to be taken with meals and scaled slightly based on her meal. She verbalized understanding of this regimen, it was also discussed with her boyfriend who is an insulin dependent diabetic. She will keep a log of her blood surgars and followup the following week with her PCP. Expect that her bolus insulin needs may be higher somewhat, but she reports she eats smaller meals at home than in the hospital and did not discharge on Humalog 15U based on that and her low as noted above. (3) CVA (cerebral vascular accident): Kourtney Trinidad reports she had a history of TIA and high blood pressure. She was put on stroke protocol on admit and evaluated as noted as above. CT-H noted punctate 3 mm hyperintense focus within the periventricular left temporal lobe on the diffusion-weighted sequence equivocal for a punctate acute infarct. Neuro was consulted, she was treated for improved diabetic control as noted above, started on ASA 81mg daily, and converted to atorvastatin 40mg daily. No thrombolytic treatment was indicated. She was discharged to followup with her PCP, no further labs pending. (4) Altered mental status: She was initially slow to orient, and was confused on admission. Orientation improved to normal with treatment of diabetes and stroke protocol as above. She was breifly disoriented following 50mg of IV diphenhydramine given for IV contrast with imaging as above, was reoriented that evening. She was oriented x3 and verbalized her understanding of her medical condition and insulin regimen noted above at time of discharge. (5) Depression with anxiety: Kourtney has a history of anxiety and depression treated with her home doses of paroxetine 40mg qAm, mirtazapine 30mg PO qHS, and aripiprazole 5mg PO qAm. She expressed frustration over her glucose being high, but denied anxiety and depression during admission. no changes to medication regimen made, although would consider mirtazapine and aripiprazole as potential potentiatiors of hunger/metabolic syndrome and her poor A1C and reduce/switch as outpatient if management of her anxiety/depression allows. (6) Hypertension: HELICOPTER DISPATCHER metoprolol succinate 25mg long acting was continued during admission. She would benefit from starting an DARION/ARB, but couldn't remember the reason why she was not started on one as an outpatient. Recommend followup with her PCP and initiation of a low dose DARION/ARB for renoprotection based on PCP judgement next week. (7) Hypothyroid: She was maintained on levothyroxine 137mcg daily during admission. (8) Chronic skin ulcer of right ear: Wound care was consulted and provided routine care to her R ear skin ulcer. Continued to heal, no active infection, cellulitis, or purulence was noted during admission. Discharged to continue HELICOPTER DISPATCHER wound care. Total Time Total Time Spent Total Time Spent (In Minutes): 30 Discharge Plan Discharge Items Patient Disposition: Home - Home Health Services Reason For Visit: SLURRED SPEECH,WEAKNESS Discharge Diagnosis: Weakness 2/2 Uncontrolled T2DM with HgA1C>10 Discharge Goals: Improve disease control Activity: Resume your previous activity Non-emergency contact: Primary Care Provider Call non-emergency contact if: you have any medication questions and your symptoms worsen Follow-up/Referrals: Andry Kerr [Primary Care Provider] - 09/04/18 1:30 pm (Please, follow up at Dr. Kerr's office with Margot CHU on SundaySeptember 04 at 1:30 pm. *If you need to change this appointment, call the office at [phone].) Diet: Carb Consistent or DM2 Addtl Provider Instructions: You were seen in the hospital for weakness. Your HgA1c was very high, 10.9%. Very high blood sugars and diabetic neuropathy are likely contributing to your weakness. When you return home please take medications as follows: You have been prescribed Lantus, a long acting insulin. Please take Lantus 50 units every morning. You have been prescribed Novolog (or Humalog depending on your insurance). Please take NovoLog or Humalog 10 units with meals. If you have a very small meal with few carbs/sugars you may take a little less insulin (5-7 units instead ). If you take a very large meal with more carbs/sugars you may take a little more insulin (15 units of insulin). Check your blood sugars 1.5-2 hours after each meal. If you develop lightheadedness, dizziness, sweats, or feel like your blood sugar might be too low drink a juice box. More detail about diabetes and blood sugar is contained at the end of these instructions. You have been prescribed a new medication, Atorvastatin 40mg. Please take Atorvastatin 40mg daily. You will need to have your liver enzymes checked by your primary care doctor. Please followup with Dr. Kerr's office as below. If you develop any muscle aches, muscle soreness, difficulty breathing, throat swelling, or rash please contact Dr. Kerr's office at the number below, or go to the emergency department if you are very concerned. You have been prescribed a new medication, Aspirin. Please take a low-dose (81mg ) Aspirin daily. A follow-up appointment has been made for you Dr. Kerr's office with Margot CHU on SundaySeptember 04 at 1:30 pm. If you need to change this appointment, call the office at [phone]. If you develop worsening weakness, lightheadedness, dizziness, sweats, difficulty breathing, loss of consciousness, confusion, or you are concerned please call Dr. Collins office at [phone], or go to the emergency department if you are concerned. Additional Detail on Diabetes and Your Blood Sugar Control: Diabetes -The reason this is relevant is "high sugars clog arteries" and generally the higher sugars run, and the longer they run high, the more you will block up blood vessels and increased risk of future strokes, and/or heart attacks. -As we discussed type 2 diabetes is predominantly lifestyle caused, as simple/ starchy/sugary carbohydrates tend to spike sugars, and once your sugar is high, your muscles get "addicted" to insulin, making it harder to get that sugar out of your bloodstream the next time. -While the bulk of this discussion will center on your insulin dosing, it is absolutely critical to work to minimize simple/starchy/sugary/potato based carbs , and work as best as you can towards 20-30 minutes of light cardiovascular exercise a day, as those will be the measures that will really make the biggest impact on your health Insulins: Lantus -This is a "basal insulin". Whenever you inject it takes about 2 hours to slowly kick in, lasts for about 18-20 hours without any real peak of activity, and then slowly fades out over the last 4-6 hours. Please take 50 units of Lantus in the morning. Your doctors will help you with the Lantus dosing. Look at it as something on "autopilot" except for if you notice that your fasting sugars in the morning are always high, they may need to help you adjust your Lantus dosing (either by increasing it or by making it twice a day), and if your fasting sugars are always low, they may need to reduce your Lantus dosing. NovoLog (or Humalog depending on insurance coverage) -This is a short acting insulin. When you take it it starts working in about 15 minutes, it reaches a peak of action in about 90 minutes, and then it is gone in about 3-4 hours. -Based on what we are seeing with your insulin needs, a "reasonable guess for NovoLog dosing at a meal will be about 10 units. -Because the insulin reaches a peak of activity about 90 minutes after you take it, and your food absorption reaches a peak in about 1-2 hours after eating, he will check a blood sugar about 1.5 -2 hours after eating to "grade your work." The goal of that after you eat sugar reading will be to see numbers between 100- 150. If your sugar is too low, then you will know the next time you eat that food or something similar, you will take less insulin. If your sugar is too high, you will know both to look at that food as more of a treat than the main stay, and if you are going to eat it to take more insulin the next time. -The examples we talked about were as follows: If you were to eat a meal like you had at lunch the day we talked (chicken, vegetables, and a little bit of rice) 10 units of NovoLog would likely have you have a sugar two hours later of about 100. This would be perfect. Therefore if you ate anything else similar, such as salmon and asparagus, or pork and [place] sprouts, you would know that that 10 units would be about perfect. If you ate a plate of spaghetti, you noted you expected your sugar to be about 300 even with the 10 units of log, and you would probably be about right. We then discussed that you would want to look at spaghetti as a food you should avoid, but if you were to eat it, to try somewhere around 15-20 units of NovoLog, and then see what your sugar is 2 hours later. We also discussed if you ate something very low carbs such as eggs and black coffee, you would probably expect 10 units to be too much, and it would be reasonable to reduce to somewhere like 5 units, and follow your sugar 2 hours later. As you learn more and more from what you eat, and how you respond to the carbohydrates and insulin, it will become easier and easier to estimate your mealtime insulin dose. -Do not try to correct high sugars that you find 2 hours after eating, this gets to be very cumbersome, confusing, and difficult. So instead of worrying about how much insulin to give if your sugars are high after a meal, learn from it so that the next time you prevent the high by either eating less carbohydrates, or taking more insulin to cover the carbohydrates. -Low sugars should be fairly easy to predict, as the mealtime insulin would likely create a low somewhere in the neighborhood of 1-2 hours after giving it, if you gave yourself too much for that meal. Therefore if you have any doubts, you would be able to pay attention to the clock, and have a snack at the ready, should you start to feel like your sugars are going low. -As you take better care of yourself, and eat less bad carbohydrates, as well as work towards exercising more, it is extremely likely that your total need for insulin will go down. This is what we call becoming less of a diabetic. You would start to notice this by saying that you need less and less mealtime insulin. If you see this, talk with your regular doctors about reducing her overall insulin doses. Prescriptions: New aspirin [Adult Low Dose Aspirin] 81 mg tablet,delayed release (DR/EC) 81 mg PO DAILY Qty: 30 RF: 1 atorvastatin 40 mg tablet 40 mg PO DAILY Qty: 30 RF: 1 insulin aspart U-100 [Novolog Flexpen U-100 Insulin] 100 unit/mL Insulin Pen See Label Instructions .ROUTE .COMPLEX Qty: 15 RF: 0 Continue aripiprazole 5 mg tablet 5 mg PO QAM RF: 0 metformin 500 mg tablet 500 mg PO BID RF: 0 levothyroxine 137 mcg tablet 137 mcg PO QAM RF: 0 mirtazapine 30 mg tablet 30 mg PO HS RF: 0 paroxetine HCl 40 mg tablet 40 mg PO QAM RF: 0 Changed insulin glargine [Lantus Solostar U-100 Insulin] 100 unit/mL (3 mL) insulin pen 50 unit subcut HS Qty: 0 RF: 0 Discontinued insulin aspart U-100 [Novolog Flexpen U-100 Insulin] 100 unit/mL insulin pen subcut UD RF: 0 Stand-Alone Forms: [facility] Discharge Orders: Discharge Order (Routine); Ordered 08/31/18 Ordered By: Tim Mckeon Admission Data Admit Date/Time: 08/29/18 18:58 Attending Provider: Jennifer Farrell Admit Provider: Yennifer Serrano Primary Care Provider: Andry Kerr Other Providers: Fredi Khan ; Lavon Briggs ; Nik Hyatt Service: Telemetry Other Interventions: Discharge Summary Assessment (RN) Last Done: 08/31/18 17:55 Pending Studies at Discharge: Yes Studies:: LFT's to be ordered by PCP Continued HgA1C followup. DC Date/Time DO NOT enter until pt leaves facility: 08/31/18 19:01 Supervising Physician Co-Signing Physician Notes Resident Physician Supervision Note: I independently interviewed and examined the patient and verified the garcia history and physical, reviewed labs and image studies, discussed the case with the resident Dr. Mckeon and agree with the findings and care plan. Time spent in discharge 35 min Resident Activity Tracking Resident Involvement: Resident Care Provided Care Provided: Adult Hospital Medicine
--- NOTE | 2018-09-01 15:23 | Pharmacy Report ---
Pharmacist Stroke Counseling - Date of Service August 31, 2018 - Scope: Pharmacy has been consulted to provide medication discharge counseling for this patient admitted with [ischemic stroke] [hemorrhagic stroke] [transient ischemic attack] as per the Pharmacist Discharge Counseling for Stroke Patients Protocol. - Medications on Discharge: Home Medications Medication Instructions Recorded Confirmed levothyroxine 137 mcg PO QAM 05/04/18 08/28/18 metformin 500 mg PO BID 05/04/18 08/28/18 mirtazapine 30 mg PO HS 05/04/18 08/28/18 paroxetine HCl 40 mg PO QAM 05/04/18 08/28/18 aripiprazole 5 mg PO QAM 08/28/18 08/28/18 New Rx's Medication Instructions Recorded aspirin [Adult Low Dose Aspirin] 81 mg PO DAILY #30 tab 08/31/18 atorvastatin 40 mg PO DAILY #30 tab 08/31/18 insulin aspart U-100 [Novolog See Label Instructions .ROUTE 08/31/18 Flexpen U-100 Insulin] .COMPLEX #15 ml insulin glargine [Lantus Solostar 50 unit SUBCUT HS #0 ml 08/31/18 U-100 Insulin] - Action: The above medications, specifically ones for stroke treatment/prophylaxis, have been reviewed in detail with the patient and/or patient installation service representative(s) prior to discharge. This includes indication, common adverse reactions, drug interactions, and medication administration. Medication counseling has been employed using the teach-back method to ensure understanding. - Outcome: The patient and/or patient installation service representative(s) have demonstrated understanding of the medications. Please note, they are aware that the pharmacist will call them within 72 hours post-discharge to confirm that the appropriate medications are being taken and answer any further medication related questions the patient might have at that time. Contact information Individual to be contacted: patient Relationship to patient (if applicable): n/a Phone number: [phone] Best time to call: not before 9am Additional comments: Talked with patient in depth about new medications. Patient had been previously been prescribed rosuvastatin in the past, however never picked up prescription for it. There had been concern for possible history of muscle pain with statins , but per patient and physician unsure about this and willing to trial a statin. Provider decided to start patient on atorvastatin and I talked to patient about monitoring muscle pain and letting doctor know if this occurs. Told her this was similar to the rosuvastatin and that this was to replace that medication. Also reviewed old medications and confirmed doses. Provider also in the room and he talked in depth about new insulin regimen. Patient seemed a little concerned about new insulin regimen and asked many questions. Patient demonstrated understanding of the new regimen. She was asked to keep a log of her blood sugars and is following up in a week with her PCP. Told patient if she were to have any questions after discharge that she could call us or her PCP. Thank you for allowing pharmacy to be involved in the care of this patient. Please call [phone] or [phone] with any additional questions
--- NOTE | 2018-09-03 15:25 | Pharmacy Report ---
Pharmacist Post D/C Phone Note - Phone Note: Date of phone call: September 03, 2018. Individual with whom pharmacist spoke to: JONATHAN TOVAR The following questions were reviewed during the phone call with responses listed below each: Can you tell me the medications that you are currently taking as well as when and how you take each medication? -See Table Below When have you missed any doses of your medications? - denies missed doses (started medications on 09/02) What side effects are you having from your medications, specifically, the new medications you were started on? - denies side effects What questions do you have about your medications? - denies questions What problems are you having obtaining your medications? - denies problems When is your next appointment with your primary care doctor? - 09/[address] Kerr As per the Pharmacist Discharge Counseling for Stroke Patients Protocol, this phone call has been completed within 72 hours of discharge. Thank you for allowing us to be involved in the care of this patient. - Home Medications: Home Medications Medication Instructions Recorded Confirmed levothyroxine 137 mcg PO QAM 05/04/18 08/28/18 metformin 500 mg PO BID 05/04/18 08/28/18 mirtazapine 30 mg PO HS 05/04/18 08/28/18 paroxetine HCl 40 mg PO QAM 05/04/18 08/28/18 aripiprazole 5 mg PO QAM 08/28/18 08/28/18 New Rx's Medication Instructions Recorded aspirin [Adult Low Dose Aspirin] 81 mg PO DAILY #30 tab 08/31/18 atorvastatin 40 mg PO DAILY #30 tab 08/31/18 insulin aspart U-100 [Novolog See Label Instructions .ROUTE 08/31/18 Flexpen U-100 Insulin] .COMPLEX #15 ml insulin glargine [Lantus Solostar 50 unit SUBCUT HS #0 ml 08/31/18 U-100 Insulin]
--- NOTE | 2018-10-29 09:22 | Coding Query ---
CODING QUERY To promote full compliance with coding requirements relating to patient care, provider participation is requested in all cases of certified coder uncertainty. Please assist us with the question(s) below: Coding Question(s): Please clarify if stroke was confirmed. Physician's Response(s): This patient had a stroke. It was confirmed on MRI. I also used the diagnostic code of CVA in my follow-up progress note for this patient. However, it looks like the discharging physician simply used weakness as the diagnosis which may have been the source of your confusion. I would really like to discuss this issue with you further to potentially avoid future similar scenarios. Thank you Lillie Cueva Principal Diagnosis: "that condition established after study, to be chiefly responsible for occasioning the admission of the patient to the hospital for care." Co-Existing Principal Diagnosis: "when two or more diagnoses equally meet the criteria for principal diagnosis as determined by the circumstances of admission, diagnostic work up, and/or therapy provided, and the Alphabetic Index, Tabular List, or another coding guideline does not provide sequencing direction, any one of the diagnoses may be sequenced first." "When the physician has documented what appears to be a current diagnosis in the body of the record, but has not included the diagnosis in the final diagnostic statement, the physician should be asked whether the diagnosis should be added." (Source [facility] 2 QTR90. p3-4) MERLE
== END 2018-08-31 19:01 | disposition home health service (06) | DRG 73 ==
LOC: ED 15:18 → 2W 15:18 → SUATTDRO 08-29 18:58

== ENCOUNTER 2019-02-25 10:23 | Inpatient (IN) ==
[2019-02-25] MEDS ORDERED: SODIUM CHLORIDE 0.9% 1000ML 1,000 ML IV ONE (10:42)
[2019-02-25] MEDS ORDERED: LORazepam 1 MG/2 ML VIAL IV STA (10:42)
--- NOTE | 2019-02-25 11:03 | XRay Report ---
XR chest 1V portable HISTORY: 63 years-old Female vomiting/vertigo acute vomiting with vertigo COMPARISON: Chest radiograph 05/04/2018 TECHNIQUE: Portable AP view of the chest FINDINGS: Cardiomediastinal and hilar silhouettes are within normal limits. The patient is rotated towards the left which limits the study. Mild left hemidiaphragmatic elevation. No pneumothorax, pleural effusion or overt pulmonary edema. Bones of the chest appear grossly intact. IMPRESSION: No acute process. The above report was generated using voice recognition software. It may contain grammatical, syntax o r spelling errors. Electronically signed by: Blanco Flanagan M.D. 02/25/2019 11:02 AM
[2019-02-25 11:23] LABS: Basophils # (auto) 0.02 K/uL (0-0.2); Basophils % (auto) 0.3 %; Eosinophils # (auto) 0.08 K/uL (0-0.5); Eosinophils % (auto) 1.1 %; Hematocrit (blood only) 37.3 % (37-47); Hemoglobin 12.7 g/dL (12.0-16.0); Immature Granulocytes # (auto) 0.03 K/uL (0.00-0.02); Immature Granulocytes % (auto) 0.4 %; Lymphocytes # (auto) 1.69 K/uL (1.2-3.4); Lymphocytes % (auto) 23.7 %; Mean Corpuscular Volume 86.1 fL (80-100); Mean Platelet Volume 10.1 fL (7.4-10.4); Monocytes # (auto) 0.38 K/uL (0.11-0.59); Monocytes % (auto) 5.3 %; Neutrophils # (auto) 4.92 K/uL (1.4-6.5); Neutrophils % (auto) 69.2 %; Platelet Count 219 K/uL (130-400); RDW Coefficient of Variation 13.5 % (11.5-14.5); RDW Standard Deviation 42.5 fL (36.4-46.3); Red Blood Count 4.33 M/uL (4.2-5.4); White Blood Count 7.12 K/uL (4.8-10.8)
[2019-02-25 11:43] LABS: Albumin Level 3.5 gm/dl (3.4-5.0); Aspartate Aminotransferase 15 U/L (15-37); BUN Creatinine Ratio 18.9 (10-20); Bilirubin Direct 0.1 mg/dl (0-0.2); Blood Urea Nitrogen 13 mg/dl (7-18); Carbon Dioxide 26 mmol/L (21-32); Chloride 108 mmol/L (98-107); Creatinine Clr Calc Pharmacy 88.2 ml/min; Est GFR (African American) 109.2; Est GFR (Non-African American) 94.2; Glucose 165 mg/dl (70-99); Potassium 3.7 mmol/L (3.5-5.1); Sodium 142 mmol/L (136-145)
[2019-02-25 11:54] LABS: Alanine Aminotransferase 19 U/L (12-78); Alkaline Phosphatase 73 U/L (45-117); Bilirubin,Total 0.5 mg/dl (0.2-1); Total Protein 7.6 gm/dl (6.4-8.2); Troponin I < 0.015 ng/ml (0-0.045)
--- NOTE | 2019-02-25 12:09 | CT Scan Report ---
CT head/brain wo con CT DOSE: HISTORY: Mental status change acute headache, vertigo, vomiting TECHNIQUE: Multiaxial CT images of the head were performed without the use of intravenous contrast. A dose lowering technique was utilized adhering to the principles of ALARA. Comparison: None. Findings: The paranasal sinuses and mastoid air cells are clear. The calvarium and skull base are int act. The ventricles and sulci are within normal limits. There is no mass, hematoma, midline shift, or acute infarct. Impression: No acute intracranial abnormality. Age-related atrophy and chronic small vessel change The above report was generated using voice recognition software. It may contain grammatical, syntax or spelling errors. Electronically signed by: Mauro Mojica M.D. 02/25/2019 11:59 AM
--- NOTE | 2019-02-25 13:43 | History & Physical Report ---
Date of Service February 25, 2019 Assessment & Plan (1) Altered mental status: Provide supportive care. Discontinue mirtazapine and paroxetine. Rule out UTI. Observation status Present on Admission?: Yes (2) Acute gastritis: Clear liquids for now. Advance diet as tolerated. IV Pepcid and oral Carafate suspension. Antiemetics as needed Present on Admission?: Yes (3) T2DM (type 2 diabetes mellitus): Decrease basal insulin requirements while on clear liquid diet. Sliding scale coverage. Hold metformin Present on Admission?: Yes (4) Postsurgical hypothyroidism: Continue oral replacement therapy Present on Admission?: Yes (5) DVT prophylaxis: Lovenox subcu History of Present Illness Chief Complaint: Nausea, vomiting, anxiety, altered mental status Primary Care Provider: Andry Kerr MD 63-year-old female who awoke this morning with altered mental status, nausea, vomiting, and anxiety by family history. The patient is somewhat lethargic but she is oriented to name place and time although she has somewhat slow mentation. She was given Ativan shortly after she arrived due to anxiety. The family notes that she is not compliant with her medication and she does sleep a lot probably from the mirtazapine which will be discontinued. Urine analysis is pending to rule out UTI. No other signs of overt infection. She may have acute gastritis since she does have some epigastric tenderness. No right upper quadrant tenderness. She will be placed in observation for further assessment and management. Allergies Allergy/AdvReac Type Severity Reaction Status Date / Time cisapride Allergy Intermediate HIVES Verified 02/25/19 13:13 doxycycline Allergy Intermediate RASH Verified 02/25/19 13:13 lansoprazole Allergy Intermediate HIVES Verified 02/25/19 13:13 tetracycline Allergy Mild DOXYCYCLINE Verified 02/25/19 13:13 CAUSES RASH gadobutrol [From Gadavist] AdvReac Intermediate Hives Unverified 02/25/19 13:13 Home Medications Home Medications Medication Instructions Recorded Confirmed Type levothyroxine 137 mcg PO QAM 05/04/18 02/25/19 History metformin 500 mg PO BID 05/04/18 02/25/19 History mirtazapine 30 mg PO Q2D 05/04/18 02/25/19 History paroxetine HCl 40 mg PO Q2D 05/04/18 02/25/19 History insulin glargine (U-100) 100 30 units SQ QAM 09/06/18 02/25/19 History unit/mL (3 mL) subcutaneous pen rosuvastatin 5 mg PO DAILY 02/25/19 02/25/19 History Past Med/Surg History Medical History Hypothyroidism Sensory ataxia Polyneuropathy Major depressive disorder Lumbosacral radiculopathy Hyperlipidemia GERD (gastroesophageal reflux disease) Encounter for routine gynecological examination Diabetic peripheral neuropathy Diabetic femoral mononeuropathy Diabetes (Chronic) Acute gastritis (Resolved) Altered mental status Anxiety (Chronic) Chest pain (Resolved) Constipation (Acute) DKA (diabetic ketoacidoses) Dyslipidemia (Chronic) Fecal impaction (Resolved) HNP (herniated nucleus pulposus), lumbar (Chronic) Hypertension (Resolved) Hypokalemia (Resolved) Hypotension (Chronic) Intractable low back pain (Chronic) Lower extremity weakness (Chronic) Lumbar stenosis with neurogenic claudication (Resolved) Major depressive disorder, recurrent episode, severe with anxious distress (Chronic) Suicide attempt (Chronic) Tachycardia (Chronic) Surgical History History of hysterectomy (Resolved) H/O cardiac catheterization (Resolved) Family History Mother Breast cancer Grandmother Breast cancer Grandmother Breast cancer Unknown Colon cancer Other No pertinent family history in first degree relatives Social History Preferred Language: Macedonian Communication Ability: Effective Beliefs That Will Affect Care: None marital status: Legally Current Living Situation: Significant Other Feels Safe at Home: Yes Smoking Status: Never smoker Hx Alcohol Use: No Hx Substance Use: No Review of Systems Review of Systems: Constitutional-no fever or chills. Awoke this morning with altered mental status, nausea, vomiting ENT-no blurred vision, no double vision, no epistaxis, no sore throat Respiratory-no cough, no wheezing, no shortness of breath Cardiac-no palpitations, no chest pain, no syncope GI-no diarrhea, melena, hematochezia. She did have nausea and vomiting this morning -no urinary retention, no urinary incontinence, no dysuria, no hematuria Musculoskeletal-no joint pain, no muscle tenderness Skin-no bruising, no rashes, no pruritus Neuro-no isolated weakness, no paresthesia, no weakness. Lethargic with altered mental status this morning Psych-no depression. Noted to be anxious upon arrival Physical Exam Physical Exam: General-lethargic but oriented to name place and time. No acute distress HEENT-head atraumatic and normocephalic, TMs intact bilaterally, pupils equal and reactive to light, extraocular muscles intact Neck-no lymphadenopathy or thyromegaly, trachea midline Chest-clear to auscultation percussion. No rales wheezing or rhonchi Cardiac-regular rate and rhythm, normal S1 and S2, no murmurs Abdomen-normal bowel sounds, no hepatosplenomegaly. No ascites. Mild epigastric tenderness. No rebound or guarding Extremities-no cyanosis, clubbing, or edema Neuro-lethargic but awake with cranial nerves II through XII intact, motor and sensory function within normal limits, strength symmetrical , no focal deficits Psych-lethargic. Cannot assess overall mood Results & Data Vital Signs (Past 12 Hours) Vital Signs Temp Pulse Resp BP Pulse Ox 02/25/19 10:32 36.7 C 84 22 182/101 H 96 Laboratory Results 02/25/19 11:03 02/25/19 11:03 PG Care Time/CCT Total # of Minutes Spent Total Time Spent with Patient: Total time spent is greater than 50% in coordination of care (as documented) at patient's floor/unit and/or counseling patient:
[2019-02-25] MEDS ORDERED: ALUMINUM/MAGNESIUM SUSP 30 ML UDC PO PRN (15:36)
[2019-02-25] MEDS ORDERED: ACETAMINOPHEN 325 MG TAB PO PRN (15:36)
[2019-02-25 15:50] LABS: Appearance Urine Clear (Clear); Bacteria Urine Automated Negative (Negative); Bilirubin Urine Negative (Negative); Blood Urine Negative (Negative); Color Urine Yellow; Epithelial Cell Urine Auto >30 /lpf (0-5); Glucose Urine UA Negative (Negative); Ketones Urine 2+ (Negative); Leukocyte Esterase Urine 1+ (Negative); Nitrite Urine Negative (Negative); Protein Urine 2+ (Negative); RBC Urine Automated 0-4 /hpf (0-4); Specific Gravity Urine 1.023 (1.000-1.030); Urobilinogen Urine Negative (Negative); pH Urine 5.5 (4.5-7.5)
[2019-02-25] MEDS ORDERED: GLUCOSE 40% GEL 15 GM TUBE PO PRN (16:15)
[2019-02-25] MEDS ORDERED: CARBOHYDRATES FOR HYPOGLYCEMIA PO PRN (16:15)
[2019-02-25] MEDS ORDERED: GLUCAGON FOR INJ 1 MG VIAL IM PRN (16:15)
[2019-02-25] MEDS ORDERED: DEXTROSE 50% 50 ML SYRINGE IV PRN (16:15)
[2019-02-25] MEDS ORDERED: GLUCOSE 10 TABS/TUBE PO PRN (16:15)
[2019-02-25 16:39] LABS: Prothrombin Time 10.5 Seconds (9.0-12.0)
[2019-02-25] MEDS: SUCRALFATE 1 GM/10 ML UDC PO SCH ×2 (16:43→20:51)
[2019-02-25] MEDS: FAMOTIDINE 20 MG in SYRINGE 3 ML IV SCH (16:44)
[2019-02-25] MEDS: SODIUM CHLORIDE 0.9% 1000ML 1,000 ML IV SCH (16:44)
--- NOTE | 2019-02-25 17:03 | Emergency Department Note ---
Entered by Sue Calzada acting as a scribe for ED Provider Note Name: Kourtney Trinidad Age: 63F Arrives Via: EMS Informant: Patient, daughter CC: Vomiting HPI: The patient is a 63 year old female that is presenting to the Emergency Room with complaints of persistent vomiting that started this morning when the patient woke up around 0900. The patient reports that she is experiencing abdominal pain secondary to her vomiting along with a mild headache. The patient's daughter states that the patient appears confused. She denies taking any medication for her symptoms prior to receiving Zofran en route in the ambulance. She notes that she has been unable to eat anything secondary to her symptoms. She denies any history of similar past episodes. The patient notes that she has a history of diabetes and states that her blood glucose was 148mg/dL and 152mg/dL en route. She denies any recent changes in medications or any sick contacts. She denies any recent surgeries. The patients daughter notes that the patient has a history of thyroid disease, depression, anxiety, and anemia. The patient notes that she takes Lexapro. She states that she is a never smoker. ROS: See above HPI for pertinent positives & negatives. A total of 10 systems reviewed and were otherwise negative. Past Medical History: Diabetes, hypothyroidism, depression, anxiety, DKA, hypertension, hypokalemia Past Surgical History: hysterectomy, cardiac catheterization Family History: Breast cancer, colon cancer Social History: , disabled/unemployed; Never smoker Home Medications: Atorvastatin, insulin, metformin, meloxicam Allergies NKDA Physical: Vitals: BP: 182/101; P: 84; R: 22; T: 98.1F, O2 97% Exam: GENERAL: Patient is uncomfortable and nauseous appearing, holding vomit bag and severly nauseous EYES: No scleral icterus, unremarkable pupils. ENT: Mucous membranes moist, no nasal congestion. NECK: No masses appreciated, no meningismus, trachea is midline. RESPIRATORY: No dyspnea. Clear to auscultation and equal bilaterally. No wheeze, no rhonchi. CARDIOVASCULAR: Regular rate and rhythm. No murmurs, rubs, gallops appreciated. GASTROINTESTINAL: Abdomen soft, non-tender, no peritonitis. Bowel sounds positive. No masses appreciated. BACK: No midline tenderness, no CVA tenderness EXTREMITIES: Normal motion all extremities, no cyanosis, no edema. NEUROLOGIC: Alert and oriented, no acute motor or sensory deficits, no focal weakness, cranial nerves grossly intact. SKIN: No rash, no jaundice, no diaphoresis. GCS 15 ED Course: Prior Medical Record, Triage/Nursing Notes, Medications, Allergies reviewed by Me Vital Signs: reviewed and remarkable for HTN Labs: Reviewed and remarkable for wnl Interventions: saline lock, nss bolus, ativan 1mg IV Imaging: CT head/brain wo con CT DOSE: HISTORY: Mental status change acute headache, vertigo, vomiting TECHNIQUE: Multiaxial CT images of the head were performed without the use of intravenous contrast. A dose lowering technique was utilized adhering to the principles of ALARA. Comparison: None. Findings: The paranasal sinuses and mastoid air cells are clear. The calvarium and skull base are intact. The ventricles and sulci are within normal limits. There is no mass, hematoma, midline shift, or acute infarct. Impression: No acute intracranial abnormality. Age-related atrophy and chronic small vessel change The above report was generated using voice recognition software. It may contain grammatical, syntax or spelling errors. Electronically signed by: Mauro Mojica M.D. 02/25/2019 11:59 AM XR chest 1V portable HISTORY: 63 years-old Female vomiting/vertigo acute vomiting with vertigo COMPARISON: Chest radiograph 05/04/2018 TECHNIQUE: Portable AP view of the chest FINDINGS: Cardiomediastinal and hilar silhouettes are within normal limits. The patient is rotated towards the left which limits the study. Mild left hemidiaphragmatic elevation. No pneumothorax, pleural effusion or overt pulmonary edema. Bones of the chest appear grossly intact. IMPRESSION: No acute process. The above report was generated using voice recognition software. It may contain grammatical, syntax or spelling errors. Electronically signed by: Blanco Flanagan M.D. 02/25/2019 11:02 AM EKG: Per My Interpretation: Indication Vertigo.weakness: NSR 99 bpm qtc 446. No ectopy no ischemia. Similar to 08/28/18. Course: 1033:The patient was evaluated in room B05. A complete history and physical examination was performed. 1123: breathing much more comfortably. No longer in distress. Daugther notes not taking meds appro, more confused recently. Acting like previous time she had a stroke. 1235: The patient states she is feeling much better at this time but notes that she is still have difficulty seeing correctly. Daughter feels the patient is still confused. Headache has resolved. BP is improved. 1237: I discussed the patients case with DWAYNE Figueroa, who will evaluate the patient for further management and care. 1239: Upon reevaluation, the patient is resting comfortably. I discussed laboratory and radiographic results with the patient and her daughter. They verbalized agreement of the treatment plan. The patient will be evaluated for further management and care. Blood pressure: Elevated - Referred to Hospitalist Disposition: Hospitalization Differentials: Differential: Toxicological, Infectious, Stroke, SAH, Trauma, Electrolyte Abnormality, Hypoglycemia, Alcohol Intoxication, Drug Intoxication, Cardiac Abnormality, Sepsis, Meningitis/Encephalitis, Trauma, Excited Delirium, Serotonin Syndrome, Psychiatric, amongst other pathologies Entertained. Medical Decision Makin yr old female with complex PMH arrives for worsening weakness, confusion at home, with vertiginous symptoms and vomiting. She is A&O here without evidence of meningitis. No focal neuro deficits and with symptoms ongoing for last few da ys I do not feel any indication for emergent neurology evaluation. Further neuro vascular imaging will be reviewed by hospitalist. She was given Ativan with resolution of anxiety and vertigo symptoms. Continued mild confusion per family. She is answering questions properly. She is not hypoxic and otherwise is breathing comfortably. No evidence of ACS. No evidence of sepsis. She clearly isn't taking care of self well if skipping medications. She will be evaluated by hospitalist for further management and monitoring. Impression: Confusion, vertigo, vomiting, medication non-compliance. The scribe's documentation has been prepared under my direction and personally reviewed by me in its entirety. I confirm that the note above accurately reflects all work, treatment, procedures, and medical decision making performed by me. Lopez Dawson MD Impression & Plan Confusion, Vertigo, Vomiting, Non compliance w medication regimen Past Med/Surg History Medical History Hypothyroidism Sensory ataxia Polyneuropathy Major depressive disorder Lumbosacral radiculopathy Hyperlipidemia GERD (gastroesophageal reflux disease) Encounter for routine gynecological examination Diabetic peripheral neuropathy Diabetic femoral mononeuropathy Diabetes (Chronic) Acute gastritis (Resolved) Altered mental status Anxiety (Chronic) Chest pain (Resolved) Constipation (Acute) DKA (diabetic ketoacidoses) Dyslipidemia (Chronic) Fecal impaction (Resolved) HNP (herniated nucleus pulposus), lumbar (Chronic) Hypertension (Resolved) Hypokalemia (Resolved) Hypotension (Chronic) Intractable low back pain (Chronic) Lower extremity weakness (Chronic) Lumbar stenosis with neurogenic claudication (Resolved) Major depressive disorder, recurrent episode, severe with anxious distress (Chronic) Suicide attempt (Chronic) Tachycardia (Chronic) Surgical History History of hysterectomy (Resolved) H/O cardiac catheterization (Resolved) Family History Mother Breast cancer Grandmother Breast cancer Grandmother Breast cancer Unknown Colon cancer Other No pertinent family history in first degree relatives Social History Preferred Language: Cameroonian Communication Ability: Effective Medical Claims Assistant Required: No Beliefs That Will Affect Care: None marital status: Legally Current Living Situation: Significant Other Other Information That Helps Us Care for You: No Feels Safe at Home: Yes Safety Concerns: Feels Safe At This Time Smoking Status: Never smoker Hx Alcohol Use: No Hx Substance Use: No Results & Data Vital Signs Vital Signs - 24 hr 02/25/19 10:30 02/25/19 10:31 02/25/19 10:32 Temperature 36.7 C Temperature Source Oral Sepsis Recent Fever Within 48 Hours No Sepsis New/Unexplained Change in Mental Status No Sepsis Action Taken by Nursing No Action Required Pulse Rate 87 87 84 Pulse Rate from SpO2 Sensor 85 87 Pulse Rhythm Regular Pulse Strength Normal Respiratory Rate 18 17 22 Respiratory Effort / Characteristics Non-Labored Spontaneous Respiratory Depth Normal Respiratory Pattern Regular Blood Pressure 182/101 H 182/101 H Blood Pressure Mean 128 128 Blood Pressure Position Sitting Pulse Oximetry 96 96 96 Oxygen Delivery Method Room Air Room Air Room Air 02/25/19 10:40 02/25/19 10:50 02/25/19 11:00 Temperature Temperature Source Sepsis Recent Fever Within 48 Hours Sepsis New/Unexplained Change in Mental Status Sepsis Action Taken by Nursing Pulse Rate 88 90 83 Pulse Rate from SpO2 Sensor 88 90 86 Pulse Rhythm Pulse Strength Respiratory Rate 17 13 14 Respiratory Effort / Characteristics Respiratory Depth Respiratory Pattern Blood Pressure Blood Pressure Mean Blood Pressure Position Pulse Oximetry 93 93 92 Oxygen Delivery Method Room Air Room Air Room Air 02/25/19 11:10 02/25/19 11:20 02/25/19 11:30 Temperature Temperature Source Sepsis Recent Fever Within 48 Hours Sepsis New/Unexplained Change in Mental Status Sepsis Action Taken by Nursing Pulse Rate 89 94 H 97 H Pulse Rate from SpO2 Sensor 89 94 H 97 H Pulse Rhythm Pulse Strength Respiratory Rate 17 14 18 Respiratory Effort / Characteristics Respiratory Depth Respiratory Pattern Blood Pressure Blood Pressure Mean Blood Pressure Position Pulse Oximetry 92 94 93 Oxygen Delivery Method Room Air Room Air Room Air 02/25/19 11:57 02/25/19 12:00 02/25/19 12:10 Temperature Temperature Source Sepsis Recent Fever Within 48 Hours Sepsis New/Unexplained Change in Mental Status Sepsis Action Taken by Nursing Pulse Rate 90 86 82 Pulse Rate from SpO2 Sensor Pulse Rhythm Pulse Strength Respiratory Rate 15 14 17 Respiratory Effort / Characteristics Respiratory Depth Respiratory Pattern Blood Pressure 126/78 Blood Pressure Mean 94 Blood Pressure Position Pulse Oximetry 94 93 Oxygen Delivery Method Room Air Room Air Room Air 02/25/19 12:20 02/25/19 12:30 02/25/19 12:40 Temperature Temperature Source Sepsis Recent Fever Within 48 Hours Sepsis New/Unexplained Change in Mental Status Sepsis Action Taken by Nursing Pulse Rate 84 88 93 H Pulse Rate from SpO2 Sensor Pulse Rhythm Pulse Strength Respiratory Rate 16 16 12 Respiratory Effort / Characteristics Respiratory Depth Respiratory Pattern Blood Pressure Blood Pressure Mean Blood Pressure Position Pulse Oximetry 95 Oxygen Delivery Method Room Air Room Air 02/25/19 12:50 02/25/19 13:00 Temperature Temperature Source Sepsis Recent Fever Within 48 Hours Sepsis New/Unexplained Change in Mental Status Sepsis Action Taken by Nursing Pulse Rate 89 89 Pulse Rate from SpO2 Sensor Pulse Rhythm Pulse Strength Respiratory Rate 18 20 Respiratory Effort / Characteristics Respiratory Depth Respiratory Pattern Blood Pressure Blood Pressure Mean Blood Pressure Position Pulse Oximetry 93 Oxygen Delivery Method Room Air Laboratory Data Result diagrams: 02/25/19 11:03 02/25/19 11:03 Lab Results 02/25/19 02/25/19 02/25/19 Range/Units 11:03 11:03 11:11 WBC 7.12 (4.8-10.8) K/uL RBC 4.33 (4.2-5.4) M/uL Hgb 12.7 (12.0-16.0) g/dL Hct 37.3 (37-47) % MCV 86.1 (80-100) fL MCH 29.3 (25-34) pg MCHC 34.0 (32-36) g/dL RDW Std Deviation 42.5 (36.4-46.3) fL RDW Coeff of Maris 13.5 (11.5-14.5) % Plt Count 219 (130-400) K/uL MPV 10.1 (7.4-10.4) fL Immature Gran % (Auto) 0.4 % Neut % (Auto) 69.2 % Lymph % (Auto) 23.7 % King % (Auto) 5.3 % Eos % (Auto) 1.1 % Baso % (Auto) 0.3 % Immature Gran # (Auto) 0.03 H (0.00-0.02) K/uL Neut # (Auto) 4.92 (1.4-6.5) K/uL Lymph # (Auto) 1.69 (1.2-3.4) K/uL King # (Auto) 0.38 (0.11-0.59) K/uL Eos # (Auto) 0.08 (0-0.5) K/uL Baso # (Auto) 0.02 (0-0.2) K/uL PT 10.5 (9.0-12.0) Seconds INR 1.0 (0.9-1.1) Sodium 142 (136-145) mmol/L Potassium 3.7 (3.5-5.1) mmol/L Chloride 108 H (98-107) mmol/L Carbon Dioxide 26 (21-32) mmol/L Anion Gap 9.0 (3-11) BUN 13 (7-18) mg/dl Creatinine 0.67 (0.6-1.2) mg/dl Est Cr Clr Drug Dosing 88.2 ml/min Est GFR ( Amer) 109.2 Est GFR (Non-Af Amer) 94.2 BUN/Creatinine Ratio 18.9 (10-20) Glucose 165 H (70-99) mg/dl Calcium 10.0 (8.5-10.1) mg/dl Total Bilirubin 0.5 (0.2-1) mg/dl Direct Bilirubin 0.1 (0-0.2) mg/dl AST 15 (15-37) U/L ALT 19 (12-78) U/L Alkaline Phosphatase 73 (45-117) U/L Troponin I < 0.015 (0-0.045) ng/ml Total Protein 7.6 (6.4-8.2) gm/dl Albumin 3.5 (3.4-5.0) gm/dl Lipase 93 (73-393) U/L TSH 0.130 L (0.300-4.500) uIu/ml Administered Medications Sodium Chloride (Nss 1000ml) 1,000 mls @ 80 mls/hr IV .[id number] COURTNEY Stop: 03/27/19 16:59 Last Admin: 02/25/19 16:44 Dose: 80 mls/hr Documented by: [id number] Famotidine 20 mg/ Syringe 5 mls @ 2.5 mls/min IV Q12H COURTNEY Stop: 03/27/19 16:59 Last Admin: 02/25/19 16:44 Dose: 2.5 mls/min Documented by: [id number] Sucralfate (Carafate) 1 gm PO ACHS COURTNEY Stop: 03/27/19 16:29 Last Admin: 02/25/19 16:43 Dose: 1 gm Documented by: [id number] Discontinued Medications Lorazepam (Ativan) 1 mg in 2 mls @ 2 mls/min IV NOW STA Stop: 02/25/19 10:43 Last Admin: 02/25/19 10:52 Dose: 2 mls/min Documented by: [id number] Sodium Chloride (Nss 1000ml) 1,000 mls @ 999 mls/hr IV .[id number] ONE Stop: 02/25/19 11:42 Last Infusion: 02/25/19 12:53 Dose: 0 mls/hr Documented by: [id number] Admin: 02/25/19 10:52 Dose: 999 mls/hr Documented by: [id number] Discharge Plan Visit Data *Final* Discharge Date/Time: 02/25/19 14:24 Chief Complaint: Illness ED Provider: Lopez Dawson Discharge Problem: Confusion, Vertigo, Vomiting, Non compliance w medication regimen Patient Disposition: Admitted As Inpatient Discharge Instructions Interventions: ED Discharge Assessment Last Done: 02/25/19 14:24 Discharge Problem: Vomiting Qualifiers: Vomiting type: unspecified Vomiting Intractability: unspecified Nausea presence: with nausea Qualified Code(s): R11.2 - Nausea with vomiting, unspecified The scribe's documentation has been prepared under my direction and personally reviewed by me in its entirety. I confirm that the note above accurately reflects all work, treatment, procedures, and medical decision making performed by me.
[2019-02-25] MEDS: INSULIN ASPART 100 UNITS/ML 3 ML PEN SC SCH ×2 (17:53→20:51)
[2019-02-25] MEDS: ONDANSETRON INJ 2 MG/ML 2 ML VIAL IV PRN (19:23)
[2019-02-25] MEDS: INSULIN GLARGINE SOLOSTAR 100 UNITS/ML 3 ML PEN SC SCH (20:48)
[2019-02-25] MEDS: ENOXAPARIN INJ 40 MG/0.4 ML SYR SQ SCH (20:54)
[2019-02-26] MEDS: ONDANSETRON INJ 2 MG/ML 2 ML VIAL IV PRN (01:55)
[2019-02-26] MEDS: LORazepam 0.5 MG/1 ML VIAL IV PRN ×2 (01:55→22:14)
[2019-02-26] MEDS: SODIUM CHLORIDE 0.9% 1000ML 1,000 ML IV SCH ×2 (04:13→16:27)
[2019-02-26] MEDS: FAMOTIDINE 20 MG in SYRINGE 3 ML IV SCH ×2 (05:24→17:23)
[2019-02-26] MEDS: LEVOTHYROXINE SODIUM 137 MCG TABLET PO SCH (05:25)
[2019-02-26 05:59] LABS: Basophils # (auto) 0.01 K/uL (0-0.2); Basophils % (auto) 0.1 %; Eosinophils % (auto) 1.2 %; Hematocrit (blood only) 35.7 % (37-47); Hemoglobin 11.8 g/dL (12.0-16.0); Immature Granulocytes # (auto) 0.02 K/uL (0.00-0.02); Immature Granulocytes % (auto) 0.2 %; Lymphocytes # (auto) 2.92 K/uL (1.2-3.4); Lymphocytes % (auto) 35.9 %; Mean Corpuscular Hgb Conc 33.1 g/dL (32-36); Mean Corpuscular Volume 86.4 fL (80-100); Mean Platelet Volume 10.1 fL (7.4-10.4); Monocytes # (auto) 0.63 K/uL (0.11-0.59); Monocytes % (auto) 7.7 %; Neutrophils # (auto) 4.46 K/uL (1.4-6.5); Neutrophils % (auto) 54.9 %; Platelet Count 221 K/uL (130-400); RDW Coefficient of Variation 13.6 % (11.5-14.5); RDW Standard Deviation 43.1 fL (36.4-46.3); Red Blood Count 4.13 M/uL (4.2-5.4); White Blood Count 8.14 K/uL (4.8-10.8)
[2019-02-26 06:34] LABS: BUN Creatinine Ratio 11.4 (10-20); Calcium 8.9 mg/dl (8.5-10.1); Creatinine Clr Calc Pharmacy 95.3 ml/min; Est GFR (Non-African American) 96.6; Potassium 3.8 mmol/L (3.5-5.1)
[2019-02-26] MEDS: ROSUVASTATIN CALCIUM 5 MG TAB PO SCH (08:15)
[2019-02-26] MEDS: SUCRALFATE 1 GM/10 ML UDC PO SCH ×4 (08:15→20:55)
[2019-02-26] MEDS: INSULIN ASPART 100 UNITS/ML 3 ML PEN SC SCH ×4 (08:36→20:56)
[2019-02-26] MEDS: INSULIN GLARGINE SOLOSTAR 100 UNITS/ML 3 ML PEN SC SCH (08:37)
[2019-02-26 10:31] LABS: Estimated Average Glucose 183 mg/dl
[2019-02-26] MEDS: PARoxetine HCl 20 MG TAB PO SCH (12:11)
--- NOTE | 2019-02-26 12:37 | Hospitalist Progress Note ---
Date of Service February 26, 2019 Assessment & Plan (1) Altered mental status: Encephalopathy toxic vs metabolic - Unclear etiology at this point Hold mirtazepine, resume paroxetine Sed rate was 75 - no tenderness over temporal arteries or scalp but skin is tender to touch over forehead and cheeks. No sinus infection on head CT at admission. She is complaining of neck and shoulder pain - PMR? Will wait to rule out infectious etiology before considering steroid administration - Lyme serology pending - blood cultures TSH was low but T4 was normal CT head no acute CXR negative (2) Acute gastritis: Advance diet as tolerated. IV Pepcid and oral Carafate suspension. Antiemetics as needed Nausea improved, no further vomiting (3) T2DM (type 2 diabetes mellitus): return to home basal insulin now that she's taking PO, sugars a bit elevated this afternoon. Sliding scale coverage. Hold metformin A1c pending glycemic consult (4) Postsurgical hypothyroidism: Continue oral replacement therapy TSH low, T4 normal (5) DVT prophylaxis: Lovenox subcu Subjective Ms. Trinidad is awake and alert, oriented. Complains of frontal headache. Some neck stiffness that she feels is due to how she slept on her pillow. Mild photophobia. No further nausea or vomiting. No abdominal pain. She reports pain in her shoulders and feet. Review of Systems Review of Systems: All systems reviewed & are unremarkable except as noted in HPI & below Physical Exam Physical Exam: General: no distress Eyes: normal inspection, PERLL EENT: Tenderness over frontal and maxillary sinuses, skin tender to gentle touch Respiratory: chest non tender, clear to auscultation, normal breath sounds, no respiratory distress, no accessory muscle use Cardiac: regular rate and rhythm, no rub or gallop, no murmur, no edema, no jvd GI/: active bowel sounds, no abd pain or tenderness, soft, non distended Extremities: normal range of motion, normal strength, non tender Neuro/Psych: alert and oriented x 3, normal mood and affect, CN II - XII intact, no nuchal rigidity, Kernigs or Brudzinski's signs, reports she is unable to feel me touching her feet. Skin: normal color, dry Results & Data Vital Signs (Past 12 Hours) Vital Signs Temp Pulse Resp BP Pulse Ox 02/26/19 07:39 36.9 C 83 18 130/76 97 PG Care Time/CCT Total # of Minutes Spent Total Time Spent with Patient: Total time spent is greater than 50% in coordination of care (as documented) at patient's floor/unit and/or counseling patient:
[2019-02-26] MEDS ORDERED: PHARMACY GLYCEMIC MGMT CONSULT PRN (13:34)
[2019-02-26] MEDS ORDERED: INSULIN GLARGINE SOLOSTAR 100 UNITS/ML 3 ML PEN SC STA (13:39)
[2019-02-26 14:12] LABS: Lyme Ab IgG w/WB Rflx Negative (Negative); Lyme Ab IgM w/WB Rflx Negative (Negative)
--- NOTE | 2019-02-26 14:40 | Pharmacy Report ---
Glycemic Control Consultation - Date of Service February 26, 2019 - Scope Scope: Glycemic Pharmacist consulted by Lachelle Garza on 02/26/19 for glycemic control and to write orders per [facility] inpatient glycemic control protocol - Objective Weight: 81.8 kg Accuchecks BSG (last 24hrs): 02/25/19 02/26/19 02/26/19 16:53 05:32 07:57 Glucose 124 H POC Glucose 134 H 109 H 02/26/19 12:07 Glucose POC Glucose 342 H* Laboratory Data (last 24hrs): 02/26/19 05:32 Potassium 3.8 Carbon Dioxide 30 Anion Gap 5.0 Creatinine 0.62 Est Cr Clr Drug Dosing 95.3 HbA1c: Hemoglobin A1c 8.0 % (4.5-5.6) H 02/26/19 05:32 - Recent Pertinent Medications Outpatient Anti-diabetic Regimen: * Lantus 30u QAM, Metformin 500mg BIDM * A1c = 8.1 % 02/26/19 - Assessment & Plan Assessment & Plan: ASSESSMENT: * Ms. Trinidad is a 63yo F, PMHx consistent with hypoTH, HLD, MDD, HTN, DM-II, among many others. Pharmacy is being consulted for lunchtime hyperglycemia. BSG of 342mg/dL likely due to basal deficiency. She did receive decreased doses of her lantus due to being NPO/on clears. Will replete basal deficiency and tighten correctional insulin PLAN FOR INPATIENT GLYCEMIC CONTROL: * Holding outpatient oral diabetes medications * Basal insulin * Lantus: additional 30 units, will place a small lantus scale this evening X1. Please see MAR for further details. * Lantus 30u QAM set to start 02/27/19 * Bolus insulin - tighten * NovoLog per scale ACHS or Q6hrs while NPO * Goal Range: Low 110 mg/dL - High 140 mg/dL * Correction Factor: 20 mg/dL/unit * Nutritional / Prandial insulin per carb ratio of 1 unit per 7 grams CHO consumed * Please note that the plan above was derived based on current level of insulin resistance and hospital stress. These recommendations are appropriate for inpatient admission only. Plan of care upon discharge will need to be reassessed to avoid potential outpatient hypo/hyperglycemia. Thank you.
[2019-02-26] MEDS: POLYETHYLENE (MIRALAX) 17 GM PACK PO PRN (17:32)
[2019-02-26] MEDS: ENOXAPARIN INJ 40 MG/0.4 ML SYR SQ SCH (20:57)
[2019-02-26] MEDS ORDERED: INSULIN GLARGINE SOLOSTAR 100 UNITS/ML 3 ML PEN SC SCH ×2 (21:00)
[2019-02-26] MEDS ORDERED: INSULIN GLARGINE SOLOSTAR 100 UNITS/ML 3 ML PEN SC ONE (21:00)
--- NOTE | 2019-02-26 22:58 | Magnetic Resonance Report ---
MR brain wo con HISTORY: Mental status change blurred vision, headache TECHNIQUE: Multiplanar multisequence MRI of the brain was performed without the use of contrast. COMPARISON STUDY: 08/29/2017. FINDINGS: small focus of increased signal medial aspect right temporal lobe. No additional foci of in creased signal on diffusion are seen. This can be seen with acute/subacute infarct versus active demy elinating disorder. There are findings of mild age-related atrophy and chronic small vessel change. Mild compensatory pro minence of the ventricular system is noted. The internal auditory canals are unremarkable. Sella and parasellar regions are unremarkable. Coronal FLAIR images demonstrate multiple foci of increased sign al within the periventricular deep white matter regions. IMPRESSION: 1. Small focus of acute/subacute ischemic change medial right temporal lobe 2. This also potentially relates to an active plaque of a demyelinating disorder. 3. Study is otherwise similar compared to the prior exam with multiple foci of increased signal in th e periventricular and deep white matter regions. 4. Diagnostic considerations include chronic small vessel change, demyelinating disorder, versus the less likely possibility of a disorder such as Lyme's disease. The above report was generated using voice recognition software. It may contain grammatical, syntax or spelling errors. Electronically signed by: Mauro Mojica M.D. 02/26/2019 10:57 PM
[2019-02-27] MEDS: FAMOTIDINE 20 MG in SYRINGE 3 ML IV SCH (04:42)
[2019-02-27] MEDS: SODIUM CHLORIDE 0.9% 1000ML 1,000 ML IV SCH ×2 (04:42→17:31)
[2019-02-27] MEDS: LEVOTHYROXINE SODIUM 137 MCG TABLET PO SCH (05:54)
[2019-02-27] MEDS: ROSUVASTATIN CALCIUM 5 MG TAB PO SCH (07:19)
[2019-02-27] MEDS: SUCRALFATE 1 GM/10 ML UDC PO SCH ×4 (07:19→21:25)
[2019-02-27] MEDS: INSULIN ASPART 100 UNITS/ML 3 ML PEN SC SCH ×4 (08:17→21:26)
[2019-02-27] MEDS: INSULIN GLARGINE SOLOSTAR 100 UNITS/ML 3 ML PEN SC SCH (08:17)
[2019-02-27 08:38] LABS: Basophils # (auto) 0.02 K/uL (0-0.2); Basophils % (auto) 0.3 %; Eosinophils # (auto) 0.15 K/uL (0-0.5); Hematocrit (blood only) 35.9 % (37-47); Hemoglobin 12.1 g/dL (12.0-16.0); Lymphocytes # (auto) 3.14 K/uL (1.2-3.4); Lymphocytes % (auto) 42.7 %; Mean Corpuscular Hgb Conc 33.7 g/dL (32-36); Mean Corpuscular Volume 87.6 fL (80-100); Mean Platelet Volume 9.7 fL (7.4-10.4); Monocytes # (auto) 0.47 K/uL (0.11-0.59); Monocytes % (auto) 6.4 %; Neutrophils # (auto) 3.58 K/uL (1.4-6.5); Neutrophils % (auto) 48.6 %; Platelet Count 231 K/uL (130-400); RDW Coefficient of Variation 13.7 % (11.5-14.5); RDW Standard Deviation 43.6 fL (36.4-46.3); White Blood Count 7.36 K/uL (4.8-10.8)
[2019-02-27] MEDS: ASPIRIN 81 MG ECTAB PO SCH (08:46)
[2019-02-27 09:18] LABS: Calcium 9.1 mg/dl (8.5-10.1); Creatinine Clr Calc Pharmacy 89.5 ml/min; Est GFR (African American) 109.7; Est GFR (Non-African American) 94.7; Potassium 3.2 mmol/L (3.5-5.1)
[2019-02-27] MEDS ORDERED: PHARMACIST DISCHARGE MED REC CONSULT PRN (10:08)
[2019-02-27] MEDS ORDERED: POTASSIUM CHLORIDE 20 MEQ TABCR PO STA (10:19)
--- NOTE | 2019-02-27 10:53 | Neurology Consultation ---
Date of Consultation February 27, 2019 Assessment & Plan (1) Acute CVA (cerebrovascular accident): This patient had a small acute right midline cerebellar hemispheric stroke near the 4th ventricle seen by MRI. The location of this lesion explains her clinical findings of vertiginous feelings with sitting up or changing positions/standing, falling to the right with sitting up, mild right arm and leg ataxia, mild trouble tracking objects horizontally, and perhaps slight dysarthria. I believe the onset of this stroke was the morning of February 25. The etiology of this stroke is likely small vessel ischemic disease. Risk factors for small vessel ischemic disease are longstanding diabetes and hypertension. She also has dyslipidemia. Her blood pressure and sugar were not adequately controlled on admission. Clinically she is a little bit improved compared to admission still has signific ant issues. MRI of the brain shows old small vessel ischemic disease of a moderate nature. Interestingly, she has a significantly elevated sedimentation rate of 76. No obvious etiology such as infection or inflammation has been found so far although cultures are pending. She has no elevated white count or fever. ROAD INSPECTOR vasculitis cannot be completely excluded. Patient had some mild encephalopathy on admission which I do not appreciate this morning. (2) Diabetic peripheral neuropathy: Patient has a severe polyneuropathy involving sensory and motor fibers likely secondary to longstanding diabetes. There is family history of hereditary motor and sensory neuropathy type 1 (Notyplp-Nnccb-Llclh disease) in her father and brother (according to the patient). The patient had evaluation at [facility] in July of 2017 including EMG and nerve conduction studies and other tests but I do not have any of these results. It is not clear if anyone could tell the difference between neuropathy from CMT verses a severe diabetic polyneuropathy. (3) Lumbosacral radiculopathy: She has a history of significant lumbar spinal stenosis post decompression surgery by Dr. Cardoza in January of 2016 at L4-5 and L5-S1. She was having radicular symptomatology then. Currently, she has no symptoms , but her suggestive of lumbosacral radiculopathy, but her tibialis anterior weakness bilaterally may be old radicular issues superimposed on the polyneuropathy. I do not believe the foot weakness is directly related to her new stroke. (4) Major depressive disorder: She has a significant history of major depressive disorder with anxiety and panic disorder. She is followed by her primary care physician. Currently, her mood is variable but stable. Recommendations: 1. Continue 81 milligram aspirin tablet daily. 2. Control blood pressure, aiming for mean arterial pressure of approximately 100, and eventually between 95 and 100. 3. Control glucose trying to bring hemoglobin A1c down closer to 7. 4. Fasting lipid profile as needed and she could be a high dose statin candidate. 5. Consider CT angiography of the head and neck. We would want to evaluate her blood vessels in general because of the stroke but also for vasculitis in lieu of the elevated ESR. 6. Echocardiogram could be repeated (was unremarkable in August of 2018). 7. Physical, occupational, and speech therapy consults. I believe she would be a excellent candidate for rehabilitation hospital transfer when stable. Overall, I spent a total of 120 minutes with this case including review of records, review of MRI films (including with the radiologist), direct evaluation the patient at bedside, and discussion of the case with the patient at bedside, clinical staff at bedside, Dr. Estrada, Dr. Chun, and Lachelle CHU, including differential diagnosis and treatment options. History of Present Illness Reason for Consultation: Patient is a 63-year-old, who I was asked to see the request of Lachelle CHU, for neurologic consultation regarding abnormal MRI of the brain questions stroke Requesting Physician: KIMBERLEY Dye Attending Physician: Medardo Chun MD History of Present Illness Patient has a 10 year history of diabetes and hypertension, currently insulin dependent and on metformin. Hemoglobin A1c reportedly went from 10 down to currently 8.0. She has a history of significant depression and anxiety with panic disorder followed by psychiatry in the past currently follows with her primary care provider Dr. Morales. She is hypothyroid post radio nucleotide ablation on levothyroxine and has a history of vitamin B12 deficiency with a recent vitamin B12 in August 2018 of 581. Patient has a history of chronic low back and lower extremity pain post decompressive surgery at L4-5 and L5-S1 by Dr. Cardoza in January of 2016 for significant lumbar spinal stenosis. At that time she had bilateral lower extremity weakness and numbness. I performed EMG and nerve conduction studies in August of 2016 and showed a significant generalized polyneuropathy with mid lumbar radiculopathy left greater than side. In July of 2017 she was seen by a neuromuscular specialist at [facility] for her progressive lower extremity weakness and numbness as well as some right upper extremity weakness. There was some family history of Igotgxu-Gfvna-Ygbjo disease in her father and brother but I have no further details regarding this. At [facility] they performed MRIs of the brain, and spine as well as a repeat EMG. Unfortunately I do not any of their reports. The patient tells me they came to know conclusion about whether she had Nfocazp-Gecya-Rsmgf disease or not but clearly underlying diabetic polyneuropathy. She has had chronic foot drop because of her low back issues and neuropathy. She walks with a walker or a cane and has been fairly stable over the last 6 months. Patient believes she had a mini-stroke about 3 years ago. She had the onset of speech problems but never went to the hospital. MRI of the brain in March of 2016 showed an old left lacunar infarct of the small nature with some other nonspecific small vessel disease. She saw Dr. Briggs in March of 2016 for some nonspecific encephalopathy. At that time an EEG showed sthl-ku-fazwtogm slowing in general but no seizure activity. She last saw Dr. Briggs in March of 2017. Patient believes she has been on a baby aspirin tablet for the last 3 years but stopped it 3 months ago because she was on too many medicines and was trying to cut back. The patient had been doing well over the last few months with chronic lower extremity numbness and weakness from the knees to the feet equally bilaterally. Occasionally she has some numbness and tingling in her hands. She really is not having much in the way of low back pain and does not have cervical spine pain. She has had no illnesses or infections recently that she can recall. She has no incontinence of urine but does have some dysuria. Patient went to bed on the evening of February 24, 2019, feeling well. She woke at 0900 on February 25. She tried to get out of bed but the room was spinning and she could not keep her balance are walk. She went back into bed and had significant nausea and vomiting. Her abdomen may have been a little sore but she did not have lew abdominal pain. She had a mild bifrontal headache and felt that her speech in memory was reasonable. Apparently her daughter felt that she was somewhat confused. She arrived to the emergency room at 1030 on February 25 with a temperature of 36.7, pulse of 89, blood pressure 182/101, respiratory rate 22, and O2 saturation 96 percent. In the emergency room she was described as slightly lethargic and confused but otherwise cooperative and had no focal findings. She was not able to walk well apparently. CT scan of the head was unremarkable. There was no sinusitis although it showed some mild atrophy and nonspecific old small vessel ischemic disease. Chest x-ray and EKG were unremarkable. CBC and Chem profile were unremarkable except for a glucose of 165. TSH was 0.13 and lipase was normal at 93. Lyme antibody titers were unremarkable. Urinalysis showed 10-30 white cells and culture so far it showed some pinpoint growth and they are reculturing. A sedimentation rate was 76 and CRP 0.59. Hemoglobin A1c was 8.0. BSGs have been ranging from 107-342. An MRI of the brain was obtained February 26 and revealed a small acute/subacute stroke in the medial aspect of the deep cerebellar hemisphere of the right. I did not see any brainstem lesions. She did have scattered mild old small vessel ischemic changes in general and rgbd-fu-vxsmulem generalized atrophy. These changes were similar to the previous study. There was no right medial temporal lesion. I reviewed these films with Dr. Estrada and he agrees. Patient herself believes that she is dizzy when she tries to sit up and walk and she cannot walk very well. She feels her limbs are about the same as usual and has no speech, mentation, or vision issues of a new nature. Allergies Allergy/AdvReac Type Severity Reaction Status Date / Time cisapride Allergy Intermediate HIVES Verified 02/25/19 13:13 doxycycline Allergy Intermediate RASH Verified 02/25/19 13:13 lansoprazole Allergy Intermediate HIVES Verified 02/25/19 13:13 tetracycline Allergy Mild DOXYCYCLINE Verified 02/25/19 13:13 CAUSES RASH gadobutrol [From Gadavist] AdvReac Intermediate Hives Unverified 02/25/19 13:13 Home Medications Home Medications Medication Instructions Recorded Confirmed Type levothyroxine 137 mcg PO QAM 05/04/18 02/25/19 History metformin 500 mg PO BID 05/04/18 02/25/19 History mirtazapine 30 mg PO Q2D 05/04/18 02/25/19 History paroxetine HCl 40 mg PO Q2D 05/04/18 02/25/19 History insulin glargine (U-100) 100 30 units SQ QAM 09/06/18 02/25/19 History unit/mL (3 mL) subcutaneous pen rosuvastatin 5 mg PO DAILY 02/25/19 02/25/19 History Patient History Medical History Postsurgical hypothyroidism (Chronic) Acute gastritis (Acute) Altered mental status (Acute) Hypothyroidism Sensory ataxia Polyneuropathy Major depressive disorder Lumbosacral radiculopathy Hyperlipidemia GERD (gastroesophageal reflux disease) Encounter for routine gynecological examination Diabetic peripheral neuropathy Diabetic femoral mononeuropathy T2DM (type 2 diabetes mellitus) (Chronic) Diabetes (Chronic) Acute gastritis (Resolved) Altered mental status Anxiety (Chronic) Chest pain (Resolved) Constipation (Acute) DKA (diabetic ketoacidoses) Dyslipidemia (Chronic) Fecal impaction (Resolved) HNP (herniated nucleus pulposus), lumbar (Chronic) Hypertension (Resolved) Hypokalemia (Resolved) Hypotension (Chronic) Intractable low back pain (Chronic) Lower extremity weakness (Chronic) Lumbar stenosis with neurogenic claudication (Resolved) Major depressive disorder, recurrent episode, severe with anxious distress (Chronic) Suicide attempt (Chronic) Tachycardia (Chronic) Surgical History History of hysterectomy (Resolved) H/O cardiac catheterization (Resolved) History of tonsillectomy Status post lumbar spine surgery for decompression of spinal cord Family History Mother , in her early 70s of some sort of cancer (patient not clear if it was breast cancer) Breast cancer Grandmother Breast cancer Grandmother Breast cancer Unknown Colon cancer Father , Diet it age 78 of a myelodysplastic syndrome. He also had Njmkmsz-Ecxir-Pldyj disease. 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 Required: No Beliefs That Will Affect Care: None marital status: Legally Current Living Situation: Significant Other current occupational status: disabled current occupation: Patient used to work at [employer] for 23 years and then [employer] Other Information That Helps Us Care for You: No other: Retired on disability from her back 3 years ago Feels Safe at Home: Yes Safety Concerns: Feels Safe At This Time Smoking Status: Never smoker Hx Alcohol Use: No Hx Substance Use: No Review of Systems Constitutional: + fatigue and + weakness; no fever Eyes: no diplopia, no eye pain and no worsening vision Ear, Nose, Mouth, Throat: + dizziness; no ear pain, no tinnitus, no hearing loss, no snoring, no hoarseness and no dysphagia Respiratory: no cough and no dyspnea Cardiovascular: no chest pain, no palpitations and no lightheadedness Gastrointestinal: no abdominal pain, no nausea and no vomiting Genitourinary: + dysuria and + urinary frequency; no urinary incontinence Musculoskeletal: no back pain, no neck pain, no radicular pain, no joint pain and no myalgia Integumentary: no rash and no lesions Neurologic: + gait abnormality, + unsteadiness, + localized weakness, + numbness and + dizziness; no generalized weakness, no tingling, no tremor(s), no abnormal movements, no headache(s), no abnormal speech, no confusion and no memory loss Psychiatric: + depression and + anxiety; no irritability, no difficulty concentrating, no confusion and no hallucinations Endocrine: + fatigue; no flushing Hematologic / Lymphatic: no easy bleeding and no easy bruising Allergy / Immunological: no urticaria and no problem reported Physical Exam Physical Exam: The patient is right-handed. The patient is awake, alert, and attentive. Speech is normal without any aphasia or significant dysarthria. However she may have some very mild dysarthria. Mentation and thought processes are intact, with full orientation and normal fund of knowledge. Attention and concentration are normal. Mood and affect are normal and appropriate. General appearance and grooming are normal. Short and long-term memory are intact to conversation. Although she does not know the date, she knows the day, the month, the year, the president. He follows commands well and is pleasant cooperative. Discs could not be visualized. Pupils are 4 mm bilaterally and reactive to light. Extraocular eye muscles are intact without nystagmus. Although she does not have any obvious nystagmus comma tracking my finger horizontally makes her dizzy. Visual acuity and visual bella seem normal grossly to confrontation. There are no deficits to sensation in the face in all 3 distributions of the fifth cranial nerve bilaterally. Corneal reflexes are positive bilaterally. Facial strength and symmetry was normal bilaterally. Hearing seems intact grossly to voice and finger rub bilaterally. Palate moves well without asymmetry. There is normal sternocleidomastoid and trapezius (shoulder shrug) strength bilaterally. Tongue is midline with good strength bilaterally. Neck has a full range of motion without discomfort. There are no cervical bruits bilaterally. There are no cranial or ocular bruits. Heart is without murmur. There is a regular rhythm and rate. Cervical, thoracic, and lumbar spine are nontender to palpation. Gait was not tested. With sitting the patient up and having her legs dangle she becomes vertiginous and falls to the right. With outstretched arms there is no drift. There are no resting, postural, or action tremors. There is very mild ataxia with finger to nose testing on the right compared to the left. There is very mild decreased facility/decreased with rapid alternating movements in the right hand compared to the left. The right lower extremity has some mild heel to arguello ataxia not present on the left. No other abnormal involuntary movements are noted. Motor strength is 4+/5 diffusely in the arms bilaterally including deltoids, biceps, triceps, brachioradialis, wrist flexors and extensors, associate artistic director, and intrinsic hand muscles. Motor strength is 4+/5 in the legs bilaterally proximally, including hip flexors, quadriceps, hamstrings, as well as gastrocnemius muscles bilaterally. Tibialis anterior are 4/5 bilaterally as are toe extensors. There is some bulk in the extensor digitorum brevis muscles bilaterally. The limbs have good tone without rigidity or spasticity. There is no atrophy noted in the muscles. Muscle bulk is normal, there is no tenderness to palpation, no myotonia to percussion, and no fasciculations seen. Sensory examination reveals a stocking decreased sensation to pin and touch up towards the knees bilaterally. Hands seem relatively spared. Reflexes are 1/4 in the biceps, triceps, and brachioradialis tendons bilaterally. Quadriceps and Achilles tendon reflexes are absent bilaterally. Toes are neutral with plantar stimulation bilaterally. Peripheral pulses are present and of normal quality distally in all 4 limbs. There is no peripheral edema noted in the limbs. Results & Data Vital Signs (Past 12 Hours) Vital Signs Temp Pulse Resp BP Pulse Ox 02/27/19 07:48 36.5 C 76 20 139/86 98 02/26/19 23:32 36.4 C L 76 14 149/82 H 96 Diagnostic Findings Addendum: Voice recognition error. There is a tiny acute/subacute infarct within the right anterior medial CEREBELLAR hemisphere adjacent the fourth ventricle. Electronically signed by: Ziggy Estrada M.D. 02/27/2019 9:19 AM ADDENDUM END MR brain wo con HISTORY: Mental status change blurred vision, headache TECHNIQUE: Multiplanar multisequence MRI of the brain was performed without the use of contrast. COMPARISON STUDY: 08/29/2017. FINDINGS: small focus of increased signal medial aspect right temporal lobe. No additional foci of increased signal on diffusion are seen. This can be seen with acute/subacute infarct versus active demyelinating disorder. There are findings of mild age-related atrophy and chronic small vessel change. Mild compensatory prominence of the ventricular system is noted. The internal auditory canals are unremarkable. Sella and parasellar regions are unremarkable. Coronal FLAIR images demonstrate multiple foci of increased signal within the periventricular deep white matter regions. IMPRESSION: 1. Small focus of acute/subacute ischemic change medial right temporal lobe 2. This also potentially relates to an active plaque of a demyelinating disorder. 3. Study is otherwise similar compared to the prior exam with multiple foci of increased signal in the periventricular and deep white matter regions. 4. Diagnostic considerations include chronic small vessel change, demyelinating disorder, versus the less likely possibility of a disorder such as Lyme's disease. The above report was generated using voice recognition software. It may contain grammatical, syntax or spelling errors. Electronically signed by: Mauro Mojica M.D. 02/26/2019 10:57 PM
[2019-02-27] MEDS ORDERED: OPTIRAY 320 125ml IV PRN (11:28)
--- NOTE | 2019-02-27 11:48 | CT Scan Report ---
HEAD & NECK CTA HISTORY: Right-sided stroke. stroke TECHNIQUE: Multiaxial CT images of the head were performed following the intravenous administration o f contrast to evaluate the major cerebral vessels. Multiaxial CT images of the neck were also perform ed following the intravenous administration of contrast to evaluate the major cervical vessels. Maxim um intensity projection images were also obtained. A dose lowering technique was utilized adhering to the principles of ALARA. COMPARISON: Brain MRI 02/26/2019. Head and Neck CTA 08/30/2018. FINDINGS: The patient's known right cerebellar hemisphere infarct is not well visualized on this study. There i s mild multifocal narrowing within the left carotid siphon and mild to moderate narrowing within the proximal bilateral gis technician. The bilateral ACAs and MCAs are widely patent. No central stenosis within th e distal vertebral arteries or basilar artery. No aneurysm identified. The right intracranial interna l carotid artery is widely patent. The major dural venous sinuses are patent. The aortic arch and proximal great vessels are widely patent. There is no significant stenosis, occ lusion, or dissection identified within the bilateral common carotid, internal carotid, or vertebral arteries. Stable 5 mm nodule within the left lung apex. The thyroid gland is atrophic. IMPRESSION: 1. Mild narrowing within the left carotid siphon and mild to moderate narrowing within the proximal b ilateral gis technician. The remaining cerebral arteries show no significant stenosis, occlusion, or aneurysm. 2. No significant stenosis, occlusion, or dissection identified within the cervical carotid or verteb ral arteries. Electronically signed by: Marcus Stephenson M.D. 02/27/2019 11:46 AM
--- NOTE | 2019-02-27 11:48 | CT Scan Report ---
HEAD & NECK CTA HISTORY: Right-sided stroke. stroke TECHNIQUE: Multiaxial CT images of the head were performed following the intravenous administration o f contrast to evaluate the major cerebral vessels. Multiaxial CT images of the neck were also perform ed following the intravenous administration of contrast to evaluate the major cervical vessels. Maxim um intensity projection images were also obtained. A dose lowering technique was utilized adhering to the principles of ALARA. COMPARISON: Brain MRI 02/26/2019. Head and Neck CTA 08/30/2018. FINDINGS: The patient's known right cerebellar hemisphere infarct is not well visualized on this study. There i s mild multifocal narrowing within the left carotid siphon and mild to moderate narrowing within the proximal bilateral management professionals. The bilateral ACAs and MCAs are widely patent. No central stenosis within th e distal vertebral arteries or basilar artery. No aneurysm identified. The right intracranial interna l carotid artery is widely patent. The major dural venous sinuses are patent. The aortic arch and proximal great vessels are widely patent. There is no significant stenosis, occ lusion, or dissection identified within the bilateral common carotid, internal carotid, or vertebral arteries. Stable 5 mm nodule within the left lung apex. The thyroid gland is atrophic. IMPRESSION: 1. Mild narrowing within the left carotid siphon and mild to moderate narrowing within the proximal b ilateral management professionals. The remaining cerebral arteries show no significant stenosis, occlusion, or aneurysm. 2. No significant stenosis, occlusion, or dissection identified within the cervical carotid or verteb ral arteries. Electronically signed by: Marcus Stephenson M.D. 02/27/2019 11:46 AM
--- NOTE | 2019-02-27 12:19 | Hospitalist Progress Note ---
Date of Service February 27, 2019 Assessment & Plan (1) Cerebellar infarct: As seen on MRI, not able to be appreciated on CT or CTA. CTA did show mild narrowing within the left carotid siphon and mild to moderate narrowing within the proximal bilateral knife blade polisher. The remaining cerebral arteries show no significant stenosis, occlusion, or aneurysm. Neurology consulted Add aspirin, patient is currently on low dose statin, will await fasting lipid profile but may need to increase to higher dose Will need to achieve better control of her bsgs - A1c was 8 PT/OT evals (2) Altered mental status: Per notes, patient was altered on arrival to ED but had improved yesterday resume mirtazepine, and paroxetine Sed rate was 75 - no tenderness over temporal arteries or scalp but skin is tender to touch over forehead and cheeks. No sinus infection on head CT at admission. - Lyme serology negative - blood cultures TSH was low but T4 was normal CT head no acute CXR negative (3) T2DM (type 2 diabetes mellitus): Sliding scale coverage. Hold metformin A1c 8 glycemic consult Diabetic education (4) Postsurgical hypothyroidism: Continue oral replacement therapy TSH low, T4 normal (5) DVT prophylaxis: Lovenox subcu Results & Data Vital Signs (Past 12 Hours) Vital Signs Temp Pulse Resp BP Pulse Ox 02/27/19 07:48 36.5 C 76 20 139/86 98 PG Care Time/CCT Total # of Minutes Spent Total Time Spent with Patient: Total time spent is greater than 50% in coordination of care (as documented) at patient's floor/unit and/or counseling patient:
[2019-02-27 13:49] LABS: Estimated Average Glucose 180 mg/dl; Hemoglobin A1C 7.9 % (4.5-5.6)
[2019-02-27] MEDS ORDERED: PERFLUTREN LIPID MICROSPHERE (DEFINITY) IV ONE (14:10)
[2019-02-27] MEDS: ENOXAPARIN INJ 40 MG/0.4 ML SYR SQ SCH (21:25)
[2019-02-27] MEDS: MIRTAZAPINE TAB 15 MG TAB PO SCH (21:27)
[2019-02-27] MEDS: FAMOTIDINE 20 MG TAB PO SCH (21:50)
[2019-02-28] MEDS: LEVOTHYROXINE SODIUM 137 MCG TABLET PO SCH (05:39)
[2019-02-28] MEDS: SODIUM CHLORIDE 0.9% 1000ML 1,000 ML IV SCH ×2 (05:45→18:16)
[2019-02-28 06:19] LABS: Basophils # (auto) 0.02 K/uL (0-0.2); Basophils % (auto) 0.3 %; Eosinophils # (auto) 0.23 K/uL (0-0.5); Eosinophils % (auto) 3.1 %; Hematocrit (blood only) 35.5 % (37-47); Hemoglobin 11.8 g/dL (12.0-16.0); Immature Granulocytes # (auto) 0.01 K/uL (0.00-0.02); Immature Granulocytes % (auto) 0.1 %; Lymphocytes # (auto) 3.24 K/uL (1.2-3.4); Mean Corpuscular Hgb Conc 33.2 g/dL (32-36); Mean Corpuscular Volume 87.7 fL (80-100); Mean Platelet Volume 9.8 fL (7.4-10.4); Monocytes # (auto) 0.53 K/uL (0.11-0.59); Neutrophils % (auto) 46.5 %; Platelet Count 218 K/uL (130-400); RDW Coefficient of Variation 13.6 % (11.5-14.5); RDW Standard Deviation 43.6 fL (36.4-46.3); Red Blood Count 4.05 M/uL (4.2-5.4); White Blood Count 7.53 K/uL (4.8-10.8)
[2019-02-28 07:06] LABS: BUN Creatinine Ratio 15.4 (10-20); Calcium 8.8 mg/dl (8.5-10.1); Creatinine Clr Calc Pharmacy 95.3 ml/min; Est GFR (Non-African American) 96.6; Potassium 3.7 mmol/L (3.5-5.1)
[2019-02-28] MEDS: SUCRALFATE 1 GM/10 ML UDC PO SCH ×4 (07:25→20:46)
[2019-02-28] MEDS: ASPIRIN 81 MG ECTAB PO SCH (07:25)
[2019-02-28] MEDS: FAMOTIDINE 20 MG TAB PO SCH ×2 (07:25→20:47)
[2019-02-28] MEDS: ROSUVASTATIN CALCIUM 5 MG TAB PO SCH (07:25)
[2019-02-28] MEDS: INSULIN ASPART 100 UNITS/ML 3 ML PEN SC SCH ×4 (08:27→20:49)
[2019-02-28] MEDS: PARoxetine HCl 20 MG TAB PO SCH (08:27)
[2019-02-28] MEDS: INSULIN GLARGINE SOLOSTAR 100 UNITS/ML 3 ML PEN SC SCH (08:28)
--- NOTE | 2019-02-28 11:52 | Pharmacy Report ---
Pharmacy Glycemic Short Note 2 - Date of Service February 28, 2019 - Glycemic Short BSG Results (Last 24 hours): 02/27/19 02/27/19 02/27/19 12:09 16:41 20:10 Glucose POC Glucose 137 H 108 H 165 H 02/28/19 02/28/19 06:02 07:43 Glucose 102 H POC Glucose 104 H OUTPATIENT ANTIDIABETIC REGIMEN: * Lantus 30 units SQ AM * Metformin 500mg PO BIDM ASSESSMENT: * Pt has received 54 units of insulin over the past 24hrs * 30 units of basal * 24 units of bolus * BSGs [id number] mg/dl * No changes needed today. * AM fasting BSG is slightly below goal range at 104 mg/dl. If this continues to trend downwards will lower basal insulin dosing tomorrow. PLAN FOR INPATIENT GLYCEMIC CONTROL: * Hold outpatient oral diabetes medications * Basal insulin * Lantus 30 units SQ daily in AM * Bolus insulin * NovoLog per scale ACHS or Q6hrs while NPO * Goal Range: Low 110 mg/dL - High 140 mg/dL * Correction Factor: 20 mg/dL/unit * Nutritional / Prandial insulin per carb ratio of 1 unit per 7 grams CHO consumed
[2019-02-28] MEDS: POLYETHYLENE (MIRALAX) 17 GM PACK PO PRN (16:07)
--- NOTE | 2019-02-28 18:16 | Hospitalist Progress Note ---
Date of Service February 28, 2019 Assessment & Plan (1) Cerebellar infarct: As seen on MRI, not able to be appreciated on CT or CTA. CTA did show mild narrowing within the left carotid siphon and mild to moderate narrowing within the proximal bilateral surfacer operator. The remaining cerebral arteries show no significant stenosis, occlusion, or aneurysm. Neurology consulted Continue aspirin, patient is currently on low dose statin - will avoid increasing Rosuvastatin from 5mg as LDL is only 27 Will need to achieve better control of her bsgs - A1c was 8 PT/OT evals recommending rehab (2) Altered mental status: Secondary to CVA Per notes, patient was altered on arrival to ED but improved by next day of admission resumed mirtazepine, and paroxetine Sed rate was 75 - no tenderness over temporal arteries or scalp but skin is tender to touch over forehead and cheeks. No sinus infection on head CT at admission. - Lyme serology negative - blood cultures (3) T2DM (type 2 diabetes mellitus): Sliding scale coverage. Hold metformin A1c 8 glycemic consult Diabetic education (4) Postsurgical hypothyroidism: Continue oral replacement therapy TSH low, T4 normal (5) DVT prophylaxis: Lovenox subcu Subjective Ms. Trinidad continues to be dizzy with poor balance. She is concerned about how much function she will recover Review of Systems Review of Systems: All systems reviewed & are unremarkable except as noted in HPI & below Physical Exam Physical Exam: General: no distress Eyes: normal inspection, PERLL Respiratory: chest non tender, clear to auscultation, normal breath sounds, no respiratory distress, no accessory muscle use Cardiac: regular rate and rhythm, no rub or gallop, no murmur, no edema, no jvd GI/: active bowel sounds, no abd pain or tenderness, soft, non distended Extremities: normal range of motion, normal strength, non tender Neuro/Psych: alert and oriented x 3, normal mood and affect Skin: normal color, dry Results & Data Vital Signs (Past 12 Hours) Vital Signs Temp Pulse Resp BP BP Pulse Ox 02/28/19 15:39 36.4 C L 78 18 154/87 H 96 02/28/19 07:35 36.4 C L 75 17 144/85 H 98 PG Care Time/CCT Total # of Minutes Spent Total Time Spent with Patient: Total time spent is greater than 50% in coordination of care (as documented) at patient's floor/unit and/or counseling patient:
[2019-02-28] MEDS: ENOXAPARIN INJ 40 MG/0.4 ML SYR SQ SCH (20:46)
[2019-03-01] MEDS: LEVOTHYROXINE SODIUM 137 MCG TABLET PO SCH (06:13)
[2019-03-01] MEDS: SODIUM CHLORIDE 0.9% 1000ML 1,000 ML IV SCH (06:14)
[2019-03-01 06:23] LABS: Basophils # (auto) 0.01 K/uL (0-0.2); Basophils % (auto) 0.1 %; Eosinophils # (auto) 0.22 K/uL (0-0.5); Eosinophils % (auto) 2.8 %; Hematocrit (blood only) 35.3 % (37-47); Hemoglobin 11.9 g/dL (12.0-16.0); Immature Granulocytes # (auto) 0.01 K/uL (0.00-0.02); Immature Granulocytes % (auto) 0.1 %; Lymphocytes # (auto) 3.23 K/uL (1.2-3.4); Lymphocytes % (auto) 40.8 %; Mean Corpuscular Hgb Conc 33.7 g/dL (32-36); Mean Corpuscular Volume 86.1 fL (80-100); Mean Platelet Volume 9.9 fL (7.4-10.4); Monocytes # (auto) 0.54 K/uL (0.11-0.59); Monocytes % (auto) 6.8 %; Neutrophils # (auto) 3.91 K/uL (1.4-6.5); Neutrophils % (auto) 49.4 %; Platelet Count 211 K/uL (130-400); RDW Coefficient of Variation 13.8 % (11.5-14.5); RDW Standard Deviation 42.8 fL (36.4-46.3); White Blood Count 7.92 K/uL (4.8-10.8)
[2019-03-01 06:50] LABS: BUN Creatinine Ratio 16.7 (10-20); Calcium 8.8 mg/dl (8.5-10.1); Creatinine Clr Calc Pharmacy 89.5 ml/min; Est GFR (African American) 109.7; Est GFR (Non-African American) 94.7; Potassium 3.7 mmol/L (3.5-5.1)
[2019-03-01] MEDS: FAMOTIDINE 20 MG TAB PO SCH ×2 (08:52→20:20)
[2019-03-01] MEDS: ROSUVASTATIN CALCIUM 5 MG TAB PO SCH (08:52)
[2019-03-01] MEDS: ASPIRIN 81 MG ECTAB PO SCH (08:52)
[2019-03-01] MEDS: INSULIN GLARGINE SOLOSTAR 100 UNITS/ML 3 ML PEN SC SCH (08:53)
[2019-03-01] MEDS: INSULIN ASPART 100 UNITS/ML 3 ML PEN SC SCH ×4 (08:55→20:23)
[2019-03-01] MEDS: SUCRALFATE 1 GM/10 ML UDC PO SCH ×4 (08:57→20:20)
[2019-03-01] MEDS: POLYETHYLENE (MIRALAX) 17 GM PACK PO PRN (09:11)
--- NOTE | 2019-03-01 11:28 | Neurology Progress Note ---
Date of Service March 01, 2019 Assessment & Plan (1) Acute CVA (cerebrovascular accident): This patient had a small acute right midline cerebellar hemispheric stroke near the 4th ventricle seen by MRI. The location of this lesion explains her clinical findings of vertiginous feelings with sitting up or changing positions/standing, falling to the right with sitting up, mild right arm and leg ataxia, mild trouble tracking objects horizontally, and perhaps slight dysarthria. Today she does not have any dysarthria or tracking issues. She is not falling to the right with sitting up but she continues to have some mild right-sided ataxia. I believe the onset of this stroke was the morning of February 25. The etiology of this stroke is likely small vessel ischemic disease. Risk factors for small vessel ischemic disease are longstanding diabetes and hypertension. She also has dyslipidemia. Her blood pressure and sugar were not adequately controlled on admission. Clinically she is a little bit improved compared to admission still has significant issues. MRI of the brain shows old small vessel ischemic disease of a moderate nature. Interestingly, she has a significantly elevated sedimentation rate of 76. No obvious etiology such as infection or inflammation has been found so far although cultures are pending. She has no elevated white count or fever. There was no evidence of FACTORY WORKER vasculitis by CT angiography of the head or neck. There were no cardiac/valvular issues. Patient had some mild encephalopathy on admission which is not present over the last 48 hours.. (2) Diabetic peripheral neuropathy: Patient has a severe polyneuropathy involving sensory and motor fibers likely secondary to longstanding diabetes. There is family history of hereditary motor and sensory neuropathy type 1 (Khbtmrv-Vzfqe-Ryvoz disease) in her father and brother (according to the patient). The patient had evaluation at [facility] in July of 2017 including EMG and nerve conduction studies and other tests but I do not have any of these results. It is not clear if anyone could tell the difference between neuropathy from CMT verses a severe diabetic polyneuropathy. (3) Lumbosacral radiculopathy: She has a history of significant lumbar spinal stenosis post decompression surgery by Dr. Cardoza in January of 2016 at L4-5 and L5-S1. She was having radicular symptomatology then. Currently, she has no symptoms , but her suggestive of lumbosacral radiculopathy, but her tibialis anterior weakness bilaterally may be old radicular issues superimposed on the polyneuropathy. I do not believe the foot weakness is directly related to her new stroke. (4) Major depressive disorder: She has a significant history of major depressive disorder with anxiety and panic disorder. She is followed by her primary care physician. Currently, her mood is variable but stable. Recommendations: 1. Continue 81 milligram aspirin tablet daily. 2. Control blood pressure, aiming for mean arterial pressure of approximately 100, and eventually between 95 and 100. 3. Control glucose trying to bring hemoglobin A1c down closer to 7. 4. Fasting lipid profile as needed and she could be a high dose statin candidate. 5. Physical, occupational, and speech therapy consults. I believe she would be a excellent candidate for rehabilitation hospital transfer when stable. Overall, I spent a total of 35 minutes with this case including review of records, direct evaluation the patient at bedside, and discussion of the case with the patient at bedside, and Lachelle CHU, including differential diagnosis and treatment options. Subjective Patient still feels vertiginous when she tries to move but can sit up in the chair better. Her balance is poor when she walks and feels like she is falling to the right. Tracking objects with her eyes is a little easier now that was a couple of days ago. She has no pain or headaches. CBC shows mild anemia and Chem profile was unremarkable. Triglycerides were 119 and total cholesterol 99. LDL [address] angiography of the head and neck showed no arteritis and some mild nonspecific narrowing of the left carotid siphon and stenoses of the bilateral christian ministries professor of a mild to moderate nature. CT scan of the head showed no sinusitis or other issues. Echocardiogram showed no abnormalities or change from the previous study of August 2018. Physical Exam Physical Exam: She is awake and alert. Speech is without aphasia or dysarthria. Mood and affect seem normal appropriate and thought processes are intact conversation. Extraocular eye muscles are intact without nystagmus. She is able to do this better than she did the other day without symptoms. There is no facial droop. With outstretched arms there is no drift. She has some mild right upper extremity ataxia. Strength is symmetrical in the limbs. There is no tremor or other abnormal involuntary movements. Results & Data Vital Signs (Past 12 Hours) Vital Signs Temp Pulse Pulse Resp BP BP Pulse Ox 03/01/19 08:07 36.6 C 92 H 68 18 147/84 H 148/77 H 97 03/01/19 07:31 36.6 C 68 18 148/77 H 97
[2019-03-01 13:27] LABS: Beta-Hydroxybutyrate 1.08 mg/dl (0.2-2.81)
--- NOTE | 2019-03-01 16:02 | Hospitalist Progress Note ---
Date of Service March 01, 2019 Assessment & Plan (1) Cerebellar infarct: As seen on MRI, not able to be appreciated on CT or CTA. CTA did show mild narrowing within the left carotid siphon and mild to moderate narrowing within the proximal bilateral molder helper. The remaining cerebral arteries show no significant stenosis, occlusion, or aneurysm. Neurology consulted Continue aspirin, patient is currently on low dose statin - will avoid increasing Rosuvastatin from 5mg as LDL is only 27 Will need to achieve better control of her bsgs - A1c was 8 PT/OT evals recommending rehab (2) Altered mental status: Secondary to CVA Per notes, patient was altered on arrival to ED but improved by next day of admission resumed mirtazepine, and paroxetine Sed rate was 75 - no tenderness over temporal arteries or scalp but skin is tender to touch over forehead and cheeks. No sinus infection on head CT at admission. No vasculitis on CTA - Lyme serology negative - blood cultures no growth (3) T2DM (type 2 diabetes mellitus): Sliding scale coverage. Hold metformin A1c 8 glycemic consult Diabetic education (4) Postsurgical hypothyroidism: Continue oral replacement therapy TSH low, T4 normal (5) DVT prophylaxis: Lovenox subcu Dispo: rehab Subjective Ms. Trinidad continues to feel dizzy and is having difficulty with ambulation. No further nausea Review of Systems Review of Systems: All systems reviewed & are unremarkable except as noted in HPI & below Physical Exam Physical Exam: General: no distress Eyes: normal inspection, PERLL Respiratory: chest non tender, clear to auscultation, normal breath sounds, no respiratory distress, no accessory muscle use Cardiac: regular rate and rhythm, no rub or gallop, no murmur, no edema, no jvd GI/: active bowel sounds, no abd pain or tenderness, soft, non distended Extremities: normal range of motion, normal strength, non tender Neuro/Psych: alert and oriented x 3, normal mood and affect Skin: normal color, dry Results & Data Vital Signs (Past 12 Hours) Vital Signs Temp Pulse Pulse Resp BP BP Pulse Ox 03/01/19 14:59 36.6 C 96 H 19 144/88 H 95 03/01/19 08:07 36.6 C 92 H 68 18 147/84 H 148/77 H 97 03/01/19 07:31 36.6 C 68 18 148/77 H 97 PG Care Time/CCT Total # of Minutes Spent Total Time Spent with Patient: Total time spent is greater than 50% in coordination of care (as documented) at patient's floor/unit and/or counseling patient:
[2019-03-01] MEDS: ENOXAPARIN INJ 40 MG/0.4 ML SYR SQ SCH (20:19)
[2019-03-01] MEDS: MIRTAZAPINE TAB 15 MG TAB PO SCH (20:21)
[2019-03-02] MEDS: LEVOTHYROXINE SODIUM 137 MCG TABLET PO SCH ×2 (05:33→08:38)
[2019-03-02 06:21] LABS: Basophils # (auto) 0.01 K/uL (0-0.2); Basophils % (auto) 0.1 %; Eosinophils # (auto) 0.21 K/uL (0-0.5); Eosinophils % (auto) 2.5 %; Hematocrit (blood only) 36.7 % (37-47); Hemoglobin 12.4 g/dL (12.0-16.0); Immature Granulocytes # (auto) 0.02 K/uL (0.00-0.02); Immature Granulocytes % (auto) 0.2 %; Lymphocytes # (auto) 3.49 K/uL (1.2-3.4); Lymphocytes % (auto) 41.8 %; Mean Corpuscular Hgb Conc 33.8 g/dL (32-36); Monocytes # (auto) 0.67 K/uL (0.11-0.59); Neutrophils # (auto) 3.94 K/uL (1.4-6.5); Neutrophils % (auto) 47.4 %; Platelet Count 243 K/uL (130-400); RDW Standard Deviation 44.8 fL (36.4-46.3); Red Blood Count 4.17 M/uL (4.2-5.4); White Blood Count 8.34 K/uL (4.8-10.8)
[2019-03-02 06:59] LABS: BUN Creatinine Ratio 21.5 (10-20); Calcium 8.9 mg/dl (8.5-10.1); Creatinine Clr Calc Pharmacy 95.3 ml/min; Est GFR (Non-African American) 96.6; Potassium 3.8 mmol/L (3.5-5.1)
[2019-03-02] MEDS: PARoxetine HCl 20 MG TAB PO SCH (08:36)
[2019-03-02] MEDS: SUCRALFATE 1 GM/10 ML UDC PO SCH ×3 (08:36→15:36)
[2019-03-02] MEDS: FAMOTIDINE 20 MG TAB PO SCH (08:36)
[2019-03-02] MEDS: ASPIRIN 81 MG ECTAB PO SCH (08:37)
[2019-03-02] MEDS: ROSUVASTATIN CALCIUM 5 MG TAB PO SCH (08:37)
[2019-03-02] MEDS: INSULIN ASPART 100 UNITS/ML 3 ML PEN SC SCH ×3 (08:47→17:28)
[2019-03-02] MEDS: INSULIN GLARGINE SOLOSTAR 100 UNITS/ML 3 ML PEN SC SCH (08:51)
--- NOTE | 2019-03-02 11:23 | Discharge Summary ---
Date of Service March 02, 2019 Admission HPI Per Admitting Provider 63-year-old female who awoke this morning with altered mental status, nausea, vomiting, and anxiety by family history. The patient is somewhat lethargic but she is oriented to name place and time although she has somewhat slow mentation. She was given Ativan shortly after she arrived due to anxiety. The family notes that she is not compliant with her medication and she does sleep a lot probably from the mirtazapine which will be discontinued. Urine analysis is pending to rule out UTI. No other signs of overt infection. She may have acute gastritis since she does have some epigastric tenderness. No right upper quadrant tenderness. She will be placed in observation for further assessment and management. Principal Diagnosis Cerebellar stroke Discharge Exam Constitutional WD/WN, vitals as above Respiratory normal respiratory effort, lungs clear to auscultation Cardiovascular RRR, no murmur, no edema Gastrointestinal (Abdomen) Inspection/Auscultation: abdomen normal to inspection and normal bowel sounds; abdomen not distended Percussion/Palpation: abdomen nontender Musculoskeletal no cyanosis or clubbing, extremities motor strength 5/5 Skin no rashes, warm and dry Neurologic moves all extremities and awake difficulty with eye movement to the left due to vertigo otherwise CN II - XII intact Psychiatric Orientation: alert and oriented x 3 Affect: + anxious affect Discharge Data Allergies Allergy/AdvReac Type Severity Reaction Status Date / Time cisapride Allergy Intermediate HIVES Verified 02/25/19 13:13 doxycycline Allergy Intermediate RASH Verified 02/25/19 13:13 lansoprazole Allergy Intermediate HIVES Verified 02/25/19 13:13 tetracycline Allergy Mild DOXYCYCLINE Verified 02/25/19 13:13 CAUSES RASH gadobutrol [From Gadavist] AdvReac Intermediate Hives Unverified 02/25/19 13:13 Consultations 02/25/19 12:38 ED Decision to Admit Stat 02/27/19 08:07 Consult Neurology Routine 02/27/19 10:08 Consult Case Management - Discharge Planning Routine Ordered Studies 02/25/19 10:42 CT head/brain wo con Stat 02/26/19 16:46 MR brain wo con Routine 02/27/19 10:10 CT angio head w con Routine CT angio neck with con Routine Hospital Course (1) Cerebellar infarct: As seen on MRI, not able to be appreciated on CT or CTA. CTA did show mild narrowing within the left carotid siphon and mild to moderate narrowing within the proximal bilateral core loader. The remaining cerebral arteries show no significant stenosis, occlusion, or aneurysm. Neurology consulted Continue aspirin, patient is currently on low dose statin - will avoid increasing Rosuvastatin from 5mg as LDL is only 27 Will need to achieve better control of her bsgs - A1c was 8 PT/OT evals recommending rehab (2) Altered mental status: Secondary to CVA Per notes, patient was altered on arrival to ED but improved by next day of admission resumed mirtazepine, and paroxetine Sed rate was 75 - no tenderness over temporal arteries or scalp but skin is tender to touch over forehead and cheeks. No sinus infection on head CT at admission. No vasculitis on CTA - Lyme serology negative - blood cultures no growth - sed rate now trending down (3) T2DM (type 2 diabetes mellitus): Sliding scale coverage. Resume metformin at discharge - will double the dose to 1000 mg bid and continue home lantus dosing of 30 units daily A1c 8 glycemic consult Diabetic education (4) Postsurgical hypothyroidism: Continue oral replacement therapy TSH low, T4 normal (5) DVT prophylaxis: Lovenox subcu while inpatient Dispo: [facility] Total Time Total Time Spent Total Time Spent (In Minutes): greater than 30 minutes Discharge Plan Discharge Items Patient Disposition: Transfer Inpatient Rehab Fac Reason For Visit: ALTERED MENTAL STATUS Discharge Diagnosis: Cerebellar stroke Discharge Goals: Decrease discomfort, Improve disease control and Improve function Activity: Resume your previous activity Activity Comment: gradually as tolerated Non-emergency contact: Primary Care Provider Call non-emergency contact if: you have any medication questions and your symptoms worsen Follow-up/Referrals: Andry Kerr MD [Primary Care Provider] - Diet: Carb Consistent or DM2 and Heart Healthy Addtl Provider Instructions: I have increased your metformin to help achieve better glucose control and help to lower your A1c. Prescriptions: New aspirin [Ecotrin Low Strength] 81 mg Tablet,Delayed Release (Dr/Ec) 81 mg PO QAM Qty: 30 RF: 0 Continued insulin glargine [Lantus Solostar U-100 Insulin] 100 unit/mL (3 mL) insulin pen 30 units SQ QAM RF: 0 rosuvastatin 5 mg tablet 5 mg PO DAILY RF: 0 levothyroxine 137 mcg tablet 137 mcg PO QAM RF: 0 mirtazapine 30 mg tablet 30 mg PO Q2D RF: 0 paroxetine HCl 40 mg tablet 40 mg PO Q2D RF: 0 Changed metformin 500 mg tablet 1,000 mg PO BID Qty: 0 RF: 0 Stand-Alone Forms: [facility] Discharge Orders: Discharge Order (Routine); Ordered 03/02/19 Ordered By: Lachelle Garaz Skilled Items Patient informed of condition?: Yes DNR: No Discharge Level of Care: Acute rehab Communicable Disease: No Discharge Prognosis: Improving Admission Data Admit Date/Time: 02/26/19 15:50 Attending Provider: Medardo Chun Admit Provider: Eben Sen Primary Care Provider: Andry Kerr Other Providers: Eben Sen Emile Pierre III Service: Medical Other Interventions: Discharge Summary Assessment (RN) Last Done: 03/01/19 08:07
[2019-03-02] MEDS ORDERED: STROKE PATIENT DISCHARGE STA (11:49)
[2019-03-02 15:34] LABS: Appearance Urine Clear (Clear); Bilirubin Urine Negative (Negative); Blood Urine Negative (Negative); Color Urine Yellow; Glucose Urine UA 3+ (Negative); Ketones Urine Negative (Negative); Leukocyte Esterase Urine Negative (Negative); Nitrite Urine Negative (Negative); Protein Urine Negative (Negative); Specific Gravity Urine 1.018 (1.000-1.030); Urobilinogen Urine Negative (Negative)
== END 2019-03-02 18:10 | DRG 66 ==
LOC: ED 10:23 → 4W 10:23 → SUATTDRO 13:42 → 4W 14:24

== ENCOUNTER 2020-06-13 15:01 | Observation (INO) ==
[2020-06-13] MEDS ORDERED: LORazepam 0.5 MG/1 ML VIAL IV STA (16:06)
[2020-06-13] MEDS ORDERED: SODIUM CHLORIDE 0.9% 1000ML 1,000 ML IV ONE ×2 (16:06→17:43)
[2020-06-13 17:19] LABS: Appearance Urine Clear (Clear); Bilirubin Urine Negative (Negative); Blood Urine Negative (Negative); Color Urine Yellow; Glucose Urine UA 3+ (Negative); Ketones Urine Trace (Negative); Leukocyte Esterase Urine Negative (Negative); Nitrite Urine Negative (Negative); Protein Urine Negative (Negative); Specific Gravity Urine 1.041 (1.000-1.030); Urobilinogen Urine Negative (Negative)
[2020-06-13 17:21] LABS: Basophils # (auto) 0.03 K/uL (0-0.2); Basophils % (auto) 0.3 %; Eosinophils % (auto) 1.7 %; Hematocrit (blood only) 41.8 % (37-47); Hemoglobin 13.7 g/dL (12.0-16.0); Immature Granulocytes # (auto) 0.03 K/uL (0.00-0.02); Immature Granulocytes % (auto) 0.3 %; Lymphocytes # (auto) 3.76 K/uL (1.2-3.4); Lymphocytes % (auto) 32.2 %; Mean Corpuscular Hgb Conc 32.8 g/dL (32-36); Mean Corpuscular Volume 88.6 fL (80-100); Mean Platelet Volume 10.2 fL (7.4-10.4); Monocytes # (auto) 0.75 K/uL (0.11-0.59); Monocytes % (auto) 6.4 %; Neutrophils # (auto) 6.92 K/uL (1.4-6.5); Neutrophils % (auto) 59.1 %; Platelet Count 301 K/uL (130-400); RDW Coefficient of Variation 13.6 % (11.5-14.5); Red Blood Count 4.72 M/uL (4.2-5.4); White Blood Count 11.69 K/uL (4.8-10.8)
--- NOTE | 2020-06-13 17:28 | XRay Report ---
XR chest 1V portable CLINICAL HISTORY: SEPSIS COMPARISON STUDY: Chest radiograph October 30, 2019. FINDINGS: Lung volumes are at the lower limits of normal. Lungs are clear. There is no pneumothorax o r pleural effusion. Cardiac size is normal. Mediastinal contours are normal. There is no evidence for pulmonary edema. IMPRESSION: No acute cardiopulmonary findings. ACT 112: Negative or not required by law. Electronically signed by: Ferdinand Arreola M.D. 06/13/2020 5:26 PM
[2020-06-13 17:32] LABS: Partial Thromboplastin Ratio 0.9; Partial Thromboplastin Time 26.2 Seconds (21.0-31.0); Prothrombin Time 10.8 Seconds (9.0-12.0)
[2020-06-13 17:38] LABS: Albumin Level 3.8 gm/dl (3.4-5.0); Calcium 9.7 mg/dl (8.5-10.1); Creatinine Clr Calc Pharmacy 63.8 ml/min; Est GFR (African American) 75.8; Est GFR (Non-African American) 65.4; Magnesium 1.6 mg/dl (1.8-2.4); Potassium 3.7 mmol/L (3.5-5.1)
[2020-06-13 17:41] LABS: Albumin Globulin Ratio 0.8 (0.9-2); Bilirubin,Total 0.2 mg/dl (0.2-1); Globulin 4.6 gm/dl (2.5-4.0); Total Protein 8.4 gm/dl (6.4-8.2)
--- NOTE | 2020-06-13 20:04 | History & Physical Report ---
Date of Service June 13, 2020 Assessment & Plan (1) Diarrhea: Urszula is a 64-year-old female with a past medical history of type 2 diabetes, hypothyroidism, major depressive disorder, GERD, CVA, and hypertension who presents with approximately 3 days of general unwellness, cough, fatigue, and diarrhea and concern for Covid. Diarrhea, epigastric/right upper quadrant abdominal pain Acute onset associated with sinus congestion, body aches, and dry cough. Afebrile, no leukocytosis Covid testing negative No transaminitis or elevation of alkaline phosphatase/bilirubin Chest x-ray negative, skin exam without evidence of cellulitis Suspect acute viral illness, influenza testing pending Lactate elevated to 5.4 on arrival to ED, improving with fluids. Suspect severe volume depletion in the setting of acute illness with 3 days of poor p.o. intake. Continue to trend. Patient status post approximately 30 cc/kg NSS bolus (2 L) Trend lactate, continue NSS plus KCl 125 cc/h -Admit for observation CBC, BMP daily Defer abdominal imaging at this time Blood culture pending, stool culture pending, influenza testing pending No indication for antibiotics at this time. Type 2 diabetes mellitus Hyperglycemic prior to admission, with glucose jumping from normal of 901 100-3 100s Hold home insulin and Metformin Lantus 8 units twice daily, aspart SSI correction factor 50 ratio 17. Glucose checks AC/at bedtime BMP daily Major depressive disorder Continue aripiprazole 5 mg p.o. at bedtime Vortioxetine 20 mg p.o. nightly not available on formulary, held Hypothyroidism Continue levothyroxine 137 mcg p.o. every morning History of CVA Continue aspirin daily DVT prophylaxis: Lovenox Diet: Diabetic Disposition: Medical surgical CODE STATUS: Full code (2) Abdominal pain: (3) Hyperlipidemia: (4) Hypothyroidism: (5) Cerebrovascular disease: (6) Diabetic peripheral neuropathy: (7) Hypoglycemia: (8) Acute CVA (cerebrovascular accident): (9) Vertigo: History of Present Illness Chief Complaint: General illness, diarrhea, hyperglycemia Primary Care Provider: Andry Kerr MD Urszula is a 64-year-old female with a past medical history of type 2 diabetes, hypothyroidism, major depressive disorder, GERD, CVA, and hypertension who presents with approximately 3 days of general unwellness, cough, fatigue, and diarrhea and concern for Covid. Urszula reports her symptoms began , approximately 3 days ago. She reports she was in her normal state of health and felt fine Sunday and Sunday, but on she suddenly felt extremely fatigued, had onset of 5 to 6 times per day of liquid diarrhea without blood, decreased appetite, some right upper quadrant and epigastric abdominal pain, and a jump in her blood sugars from their normal of 90-100 up to the low 300s without change in her antiglycemics. She reports that she is also had near complete loss of appetite, and has been eating and drinking very little since that time. She denies shortness of breath and dyspnea, but notes she feels "wiped out ". Denies chest pain, chest pressure. She denies rash or skin changes. She reports her d aughters are schoolteachers and have been exposed to Covid, her boyfriend who she lives with is also feeling poorly and he is an privacy attorney for the [place] [facility] [employer] [facility] who may get tested for Covid this week. She was afraid she could have been exposed to Covid, and wanted to be evaluated. She has not had any fever, and has had no change in taste or smell although she feels slightly congested. Medical history: Reviewed Medications: Reviewed. Surgical history: Reviewed. Allergies: Reviewed Social: Denies tobacco, alcohol, and recreational drug use. Lives with her boyfriend who is an privacy attorney for the [place] [facility] [employer] [facility] and who is also feeling unwell at home. CODE STATUS: Full code, discussed with patient at bedside Family history: Noncontributory Allergies Allergy/AdvReac Type Severity Reaction Status Date / Time cisapride Allergy Intermediate Hives Verified 06/13/20 17:34 doxycycline Allergy Intermediate Rash Verified 06/13/20 17:34 gadobutrol [From Gadavist] Allergy Intermediate Hives Verified 06/13/20 17:34 lansoprazole Allergy Intermediate Hives Verified 06/13/20 17:34 Penicillins Allergy Mild Rash Verified 06/13/20 17:34 tetracycline Allergy Mild Rash Verified 06/13/20 17:34 Home Medications Home Medications Medication Instructions Recorded Confirmed Type levothyroxine 137 mcg PO QAM 05/04/18 06/13/20 History mirtazapine 30 mg PO HS 05/04/18 06/13/20 History aspirin [Ecotrin Low Strength] 81 mg PO QAM #30 tab 03/02/19 06/13/20 Rx docusate sodium [Colace] 100 mg PO BID 06/06/19 06/13/20 History vortioxetine [Trintellix] 20 mg PO HS 06/06/19 06/13/20 History metformin 1,000 mg PO BID 10/01/19 06/13/20 History aripiprazole [Abilify] 5 mg PO HS 10/30/19 06/13/20 History insulin glargine 100 unit/mL (3 24 unit SQ QAM ml 05/06/20 06/13/20 History mL) subcutaneous pen insulin lispro 100 unit/mL 2 unit SQ QPM ml 05/06/20 06/13/20 History subcutaneous pen flash glucose sensor #6 ea 06/09/20 Rx rosuvastatin 5 mg PO PM 06/13/20 06/13/20 History Past Med/Surg History Medical History (Updated 06/14/20 @ 18:42 by Bright Dukes PA-C) Acute gastritis Altered mental status Altered mental status Anxiety Cervical dysplasia Chest pain Constipation Diabetes Diabetic femoral mononeuropathy Diabetic peripheral neuropathy DKA (diabetic ketoacidoses) Dyslipidemia Encounter for routine gynecological examination Fecal impaction GERD (gastroesophageal reflux disease) Gout History of anemia HNP (herniated nucleus pulposus), lumbar Hyperlipidemia Hypertension Hypoglycemia Hypokalemia Hypotension Hypothyroidism Intractable low back pain Lower extremity weakness Lumbar stenosis with neurogenic claudication Lumbosacral radiculopathy Major depressive disorder Major depressive disorder, recurrent episode, severe with anxious distress Polyneuropathy Postsurgical hypothyroidism Sensory ataxia Suicide attempt T2DM (type 2 diabetes mellitus) Tachycardia Surgical History H/O cardiac catheterization H/O dilation and curettage H/O laparoscopy History of colposcopy with cervical biopsy History of dental surgery History of hysterectomy History of tonsillectomy History of total abdominal hysterectomy Previous back surgery Status post hysteroscopic ablation of endometrium Status post lumbar spine surgery for decompression of spinal cord Family History Mother , in her early 70s of some sort of cancer (patient not clear if it was breast cancer) Breast cancer Diabetes Grandmother Breast cancer Grandmother Breast cancer Unknown Colon cancer Father , Diet it age 78 of a myelodysplastic syndrome. He also had Zkiqjiw-Tcpyu-Jtxkt disease. 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: No Beliefs That Will Affect Care: None marital status: Life Partner Current Living Situation: Other current occupational status: disabled current occupation: Patient used to work at [employer] for 23 years and then [employer] How many Children do You have: 2 Other Information That Helps Us Care for You: No other: Retired on disability from her back 3 years ago Feels Safe at Home: Yes Safety Concerns: Feels Safe At This Time Assistive Devices: Glasses Assistive Devices Comment: cane, glasses with patient Review of Systems Review of Systems: All systems reviewed & are unremarkable except as noted in HPI & below Physical Exam Physical Exam: General: A&Ox3. NAD. Cooperative. Affect euthymic. Speech with normal volume, prosody, fluent. Not responding to internal stimuli. HEENT: Atraumatic, normocephalic. Moderate dentition, no gingival swelling/erythema, or tooth purulence/discharge appreciated. No cervical anterior or posterior lymphadenopathy. Pulm: CTAB A&P. -wheezes, -rales, -rhonchi. Symmetrical chest rise. No increase work of breathing. No respiratory distress. Cardiac: RRR, -mrg. Radial pulses intact and symmetrical. Abdominal: Nontender, nondistended, soft. BS present. CRANIAL NERVES: II: Pupils equal and reactive, no relative afferent pupillary defect, no VF cuts III, IV, : EOM intact, no gaze preference or deviation, no nystagmus. V: normal sensation in V1, V2, and V3 segments bilaterally VII: no asymmetry, no nasolabial fold flattening VIII: normal hearing to speech IX, X: normal palatal elevation, no uvular deviation XI: 5/5 head turn bilaterally XII: midline tongue protrusion MOTOR: Mild bilateral lower extremity intermittent resting tremor which quiets when patient focuses. RUE: 5/5 Shoulder internal rotation, external rotation, flexion, extension, abduction, adduction 5/5 Elbow flexion/extension, wrist flexion/extension 5/5 merit system director strength, finger flexion/extension, interosseus LUE: 5/5 Shoulder internal rotation, external rotation, flexion, extension, abduction, adduction 5/5 Elbow flexion/extension, wrist flexion/extension 5/5 merit system director strength, finger flexion/extension, interosseus RLE: 4-/5 to hip flexion, ankle dorsiflexion/plantarflexion. Baseline per patient LLE: 4-/5 to hip flexion, ankle dorsiflexion/plantarflexion. Baseline per patient. SENSORY: Normal to touch in upper and lower extremities without deficit or asymmetry Results & Data Results & Data ([facility]) Vital Signs (Past 12 Hours) Vital Signs Temp Pulse Pulse Resp BP BP Pulse Ox 06/13/20 19:00 115 H 18 153/98 H 98 06/13/20 18:27 114 H 24 147/86 H 96 06/13/20 16:54 113 H 24 145/102 H 97 06/13/20 15:19 36.6 C 127 H 20 145/93 H 97 Supervising Physician Co-Signing Physician Notes Attending addendum: I have physically seen this patient, have supervised the medical residents activities, and agree with the H&P unless as otherwise noted. Assessment and Plan: Diarrhea/abdominal pain/dehydration/generalized B symptoms- Observation to medical floor. NSS plus KCl 20 mEq at 125 mils per hour Follow urine cultures and blood cultures. Diabetes mellitus- Hold insulin and Metformin. Reduce Lantus 8 units subcu twice daily. Patient Accu-Cheks before meals and at bedtime with NovoLog coverage per scale Serial BMP and magnesium levels. Check hemoglobin A1c Major depression disorder- Continue aripiprazole 5 mg at bedtime. Patient may bring in own Vortioexetine Hypothyroidism- Continue levothyroxine 37 mcg daily Remaining orders and notations as noted Resident Activity Tracking Resident Involvement: Resident Care Provided Care Provided: Adult Hospital Medicine
[2020-06-13] MEDS ORDERED: SODIUM CHLORIDE 0.9% 500 ML IV ONE (20:15)
[2020-06-13 20:43] LABS: Influenza A virus by PCR Negative (Negative); Influenza B virus by PCR Negative (Negative)
--- NOTE | 2020-06-13 20:52 | Emergency Department Note ---
History of Present Illness General Chief complaint: Hyperglycemia Stated complaint: HIGH BLOOD SUGAR Time Seen by Provider: 06/13/20 15:24 History of Present Illness Provider complaint: Feeling ill Onset (ago): day(s) 3 Associated symptoms: + cough; no chest pain, no fever/chills, no headaches, no nausea/vomiting and no syncope 64-year-old female presents emergency department stating that she is "feeling ill". Patient reports that for the last 3 days she has been having myalgias, cough, diarrhea, nausea, and vomiting. She states her blood sugars have been higher ranging in the 200s to 300s. She states her daughter is a teacher and was exposed to someone with COVID-19. She states that she took Tylenol but that did not help her symptoms. Home Medications Home Medications Medication Instructions Recorded Confirmed Type levothyroxine 137 mcg PO QAM 05/04/18 06/13/20 History mirtazapine 30 mg PO HS 05/04/18 06/13/20 History aspirin [Ecotrin Low Strength] 81 mg PO QAM #30 tab 03/02/19 06/13/20 Rx docusate sodium [Colace] 100 mg PO BID 06/06/19 06/13/20 History vortioxetine [Trintellix] 20 mg PO HS 06/06/19 06/13/20 History metformin 1,000 mg PO BID 10/01/19 06/13/20 History aripiprazole [Abilify] 5 mg PO HS 10/30/19 06/13/20 History insulin glargine 100 unit/mL (3 24 unit SQ QAM ml 05/06/20 06/13/20 History mL) subcutaneous pen insulin lispro 100 unit/mL 2 unit SQ QPM ml 05/06/20 06/13/20 History subcutaneous pen flash glucose sensor #6 ea 06/09/20 Rx rosuvastatin 5 mg PO PM 06/13/20 06/13/20 History Allergies Allergy/AdvReac Type Severity Reaction Status Date / Time cisapride Allergy Intermediate Hives Verified 06/13/20 17:34 doxycycline Allergy Intermediate Rash Verified 06/13/20 17:34 gadobutrol [From Gadavist] Allergy Intermediate Hives Verified 06/13/20 17:34 lansoprazole Allergy Intermediate Hives Verified 06/13/20 17:34 Penicillins Allergy Mild Rash Verified 06/13/20 17:34 tetracycline Allergy Mild Rash Verified 06/13/20 17:34 Past Med/Surg History Medical History (Updated 06/13/20 @ 20:53 by Bret Barnes) Acute gastritis Altered mental status Altered mental status Anxiety Cervical dysplasia Chest pain Constipation Diabetes Diabetic femoral mononeuropathy Diabetic peripheral neuropathy DKA (diabetic ketoacidoses) Dyslipidemia Encounter for routine gynecological examination Fecal impaction GERD (gastroesophageal reflux disease) Gout History of anemia HNP (herniated nucleus pulposus), lumbar Hyperlipidemia Hypertension Hypoglycemia Hypokalemia Hypotension Hypothyroidism Intractable low back pain Lower extremity weakness Lumbar stenosis with neurogenic claudication Lumbosacral radiculopathy Major depressive disorder Major depressive disorder, recurrent episode, severe with anxious distress Polyneuropathy Postsurgical hypothyroidism Sensory ataxia Suicide attempt T2DM (type 2 diabetes mellitus) Tachycardia Surgical History H/O cardiac catheterization H/O dilation and curettage H/O laparoscopy History of colposcopy with cervical biopsy History of dental surgery History of hysterectomy History of tonsillectomy History of total abdominal hysterectomy Previous back surgery Status post hysteroscopic ablation of endometrium Status post lumbar spine surgery for decompression of spinal cord Family History Mother , in her early 70s of some sort of cancer (patient not clear if it was breast cancer) Breast cancer Diabetes Grandmother Breast cancer Grandmother Breast cancer Unknown Colon cancer Father , Diet it age 78 of a myelodysplastic syndrome. He also had Rbgiwqi-Lytsu-Kfbox disease. 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 for 23 years and then [employer] How many Children do You have: 2 other: Retired on disability from her back 3 years ago Feels Safe at Home: Yes Assistive Devices: Glasses and Walker Review of Systems A total of 10 systems reviewed and were otherwise negative Physical Exam Vital Signs Vital Signs - 24 hr 06/13/20 15:19 06/13/20 16:54 06/13/20 18:27 Temperature 36.6 C Temperature Source Oral Pulse Rate 127 H Pulse Rate [Left Finger] 113 H 114 H Respiratory Rate 20 24 24 Blood Pressure 145/93 H Blood Pressure [Left Arm] 145/102 H 147/86 H Blood Pressure Mean 110 Blood Pressure Mean [Left Arm] 116 106 Pulse Oximetry 97 97 96 Oxygen Delivery Method Room Air Room Air Room Air Sepsis Recent Fever Within 48 Hours Yes Sepsis New/Unexplained Change in Mental Status No Sepsis Action Taken by Nursing No Action Required 06/13/20 19:00 06/13/20 20:00 Temperature Temperature Source Pulse Rate 115 H 108 H Pulse Rate [Left Finger] Respiratory Rate 18 24 Blood Pressure 153/98 H 137/84 Blood Pressure [Left Arm] Blood Pressure Mean 113 102 Blood Pressure Mean [Left Arm] Pulse Oximetry 98 96 Oxygen Delivery Method Sepsis Recent Fever Within 48 Hours Sepsis New/Unexplained Change in Mental Status Sepsis Action Taken by Nursing Physical Exam GENERAL: She is oriented to person, place, and time. She appears well-developed and well-nourished. She does not appear distressed. HENT: Exam performed. -Head: Normocephalic and atraumatic. -Right Ear: External ear normal. No mastoid tenderness. -Left Ear: External ear normal. No mastoid tenderness. -Mouth/Throat: The oropharynx is clear and moist. No trismus in the jaw. No dental abscesses or uvula swelling. No oropharyngeal exudate or tonsillar abscesses. EYES: Conjunctivae and EOM are normal. Pupils are equal, round, and reactive to light. Right eye exhibits no discharge. Left eye exhibits no discharge. No scleral icterus. NECK: Normal range of motion. Neck supple. No JVD present. No spinous process tenderness present. No carotid bruit present. No rigidity. No tracheal deviation and normal range of motion present. No Brudzinski's sign and no Kernig's sign noted. CV: Tachycardic rate, regular rhythm, normal heart sounds and intact distal pulses. There is no peripheral edema. Palpable radial pulses bue. PULM/CHEST: Effort normal and breath sounds normal. No respiratory distress. No stridor. She has no wheezes. She has no rales. -Chest Wall: She exhibits no tenderness. ABD: The abdomen is soft. Bowel sounds are normal. She has no distension. No mass is present. There is no tenderness. There is no rebound, no guarding, no Adrian's sign and no tenderness at McBurney's point. Rovsig negative MUSC/SKEL: Normal range of motion. There is no peripheral edema, tenderness or deformity. LYMPH: No cervical adenopathy. NEURO: She is alert and oriented to person, place, and time. She has normal strength. No cranial nerve deficit or sensory deficit. Coordination and gait normal. GCS eye subscore is 4. GCS verbal subscore is 5. GCS motor subscore is 6. Cerebellar tests wnl. SKIN: Skin is warm and dry. She is not diaphoretic. PSYCH: Patient appears anxious. Course Course 1524: The patient was evaluated in room C7. A complete history and physical exam was performed. Patient was seen in full airborne precautions including N95, gowns, gloves, face shield worn by me. Patient appears extremely anxious at this time. Patient be given Ativan. Patient be started on 1 L IV fluids. Patient was swab for COVID-19 and have lab work done. 1700: Patient remains tachycardic in the emergency department despite 1 L of IV fluids. Labs show a lactic acid of 5.4. Patient is afebrile. Her chest x-ray shows no infectious process. Urinalysis does not appear to be source of i nfection. Blood cultures have been sent. Patient will be given another liter of normal saline so she will have a total of greater than 30 cc/kg fluid resuscitation based off her ideal body weight. COVID-19 test will be done rapidly in-house at this time and we will plan on admitting the patient to the hospitalist service. Patient was also reporting diarrhea, stool cultures and C. difficile will also be ordered on the patient. 1900: Patient remains tachycardic. Repeat lactic acid after 30 cc/kg bolus of normal saline is 4.9. C. difficile and stool cultures are still pending. Patient will be admitted to [facility] hospitalist service. Administered Medications Discontinued Medications Lorazepam (Ativan) 0.5 mg in 1 mls @ 1 mls/min IV NOW STA Stop: 06/13/20 16:07 Last Admin: 06/13/20 17:03 Dose: 1 mls/min Documented by: [id number] Sodium Chloride (Nss 1000ml) 1,000 mls @ 999 mls/hr IV .Q1H1M ONE Stop: 06/13/20 17:06 Last Infusion: 06/13/20 18:00 Dose: 0 mls/hr Documented by: [id number] Admin: 06/13/20 16:52 Dose: 999 mls/hr Documented by: [id number] Sodium Chloride (Nss 1000ml) 1,000 mls @ 999 mls/hr IV .Q1H1M ONE Stop: 06/13/20 18:43 Last Infusion: 06/13/20 19:25 Dose: 0 mls/hr Documented by: [id number] Admin: 06/13/20 18:24 Dose: 999 mls/hr Documented by: [id number] Sodium Chloride (Nss) 500 mls @ 999 mls/hr IV .Q31M ONE Stop: 06/13/20 20:45 Last Admin: 06/13/20 20:07 Dose: 999 mls/hr Documented by: [id number] Medical Decision Making Laboratory Data Result diagrams: 06/13/20 16:35 06/13/20 16:35 Lab Results 06/13/20 06/13/20 06/13/20 Range/Units 16:35 16:35 16:35 WBC 11.69 H (4.8-10.8) K/uL RBC 4.72 (4.2-5.4) M/uL Hgb 13.7 (12.0-16.0) g/dL Hct 41.8 (37-47) % MCV 88.6 (80-100) fL MCH 29.0 (25-34) pg MCHC 32.8 (32-36) g/dL RDW Std Deviation 44.0 (36.4-46.3) fL RDW Coeff of Maris 13.6 (11.5-14.5) % Plt Count 301 (130-400) K/uL MPV 10.2 (7.4-10.4) fL Immature Gran % (Auto) 0.3 % Neut % (Auto) 59.1 % Lymph % (Auto) 32.2 % Swisher % (Auto) 6.4 % Eos % (Auto) 1.7 % Baso % (Auto) 0.3 % Neut # (Auto) 6.92 H (1.4-6.5) K/uL Lymph # (Auto) 3.76 H (1.2-3.4) K/uL Swisher # (Auto) 0.75 H (0.11-0.59) K/uL Eos # (Auto) 0.20 (0-0.5) K/uL Baso # (Auto) 0.03 (0-0.2) K/uL Immature Gran # (Auto) 0.03 H (0.00-0.02) K/uL PT 10.8 (9.0-12.0) Seconds INR 1.0 (0.9-1.1) APTT 26.2 (21.0-31.0) Seconds PTT Ratio 0.9 Sodium 141 (136-145) mmol/L Potassium 3.7 (3.5-5.1) mmol/L Chloride 104 (98-107) mmol/L Carbon Dioxide 27 (21-32) mmol/L Anion Gap 10.0 (3-11) BUN 14 (7-18) mg/dl Creatinine 0.93 (0.6-1.2) mg/dl Est Cr Clr Drug Dosing 63.8 ml/min Est GFR ( Amer) 75.8 Est GFR (Non-Af Amer) 65.4 BUN/Creatinine Ratio 15.0 (10-20) Glucose 231 H (70-99) mg/dl Lactate (0.4-2.0) mmol/L Calcium 9.7 (8.5-10.1) mg/dl Magnesium 1.6 L (1.8-2.4) mg/dl Total Bilirubin 0.2 (0.2-1) mg/dl AST 15 (15-37) U/L ALT 15 (12-78) U/L Alkaline Phosphatase 77 (45-117) U/L Total Protein 8.4 H (6.4-8.2) gm/dl Albumin 3.8 (3.4-5.0) gm/dl Globulin 4.6 H (2.5-4.0) gm/dl Albumin/Globulin Ratio 0.8 L (0.9-2) Urine Color Urine Appearance (Clear) Urine pH (4.5-7.5) Ur Specific [place] (1.000-1.030) Urine Protein (Negative) Urine Glucose (UA) (Negative) Urine Ketones (Negative) Urine Blood (Negative) Urine Nitrite (Negative) Urine Bilirubin (Negative) Urine Urobilinogen (Negative) Ur Leukocyte Esterase (Negative) COVID-19 Eval Order COVID-19 PCR (Negative) Nasopharyn COVID-19 PCR Influ A Molecular Assay (Negative) Influ B Molecular Assay (Negative) 06/13/20 06/13/20 06/13/20 Range/Units 16:35 16:40 17:00 WBC (4.8-10.8) K/uL RBC (4.2-5.4) M/uL Hgb (12.0-16.0) g/dL Hct (37-47) % MCV (80-100) fL MCH (25-34) pg MCHC (32-36) g/dL RDW Std Deviation (36.4-46.3) fL RDW Coeff of Maris (11.5-14.5) % Plt Count (130-400) K/uL MPV (7.4-10.4) fL Immature Gran % (Auto) % Neut % (Auto) % Lymph % (Auto) % Swisher % (Auto) % Eos % (Auto) % Baso % (Auto) % Neut # (Auto) (1.4-6.5) K/uL Lymph # (Auto) (1.2-3.4) K/uL Swisher # (Auto) (0.11-0.59) K/uL Eos # (Auto) (0-0.5) K/uL Baso # (Auto) (0-0.2) K/uL Immature Gran # (Auto) (0.00-0.02) K/uL PT (9.0-12.0) Seconds INR (0.9-1.1) APTT (21.0-31.0) Seconds PTT Ratio Sodium (136-145) mmol/L Potassium (3.5-5.1) mmol/L Chloride (98-107) mmol/L Carbon Dioxide (21-32) mmol/L Anion Gap (3-11) BUN (7-18) mg/dl Creatinine (0.6-1.2) mg/dl Est Cr Clr Drug Dosing ml/min Est GFR ( Amer) Est GFR (Non-Af Amer) BUN/Creatinine Ratio (10-20) Glucose (70-99) mg/dl Lactate 5.4 H* (0.4-2.0) mmol/L Calcium (8.5-10.1) mg/dl Magnesium (1.8-2.4) mg/dl Total Bilirubin (0.2-1) mg/dl AST (15-37) U/L ALT (12-78) U/L Alkaline Phosphatase (45-117) U/L Total Protein (6.4-8.2) gm/dl Albumin (3.4-5.0) gm/dl Globulin (2.5-4.0) gm/dl Albumin/Globulin Ratio (0.9-2) Urine Color Yellow Urine Appearance Clear (Clear) Urine pH 5.0 (4.5-7.5) Ur Specific [place] 1.041 H (1.000-1.030) Urine Protein Negative (Negative) Urine Glucose (UA) 3+ H (Negative) Urine Ketones Trace H (Negative) Urine Blood Negative (Negative) Urine Nitrite Negative (Negative) Urine Bilirubin Negative (Negative) Urine Urobilinogen Negative (Negative) Ur Leukocyte Esterase Negative (Negative) COVID-19 Eval Order Covid19 Sent to [facility] COVID-19 PCR (Negative) Quan COVID-19 PCR Influ A Molecular Assay (Negative) Influ B Molecular Assay (Negative) 06/13/20 06/13/20 06/13/20 Range/Units 17:00 17:00 17:00 WBC (4.8-10.8) K/uL RBC (4.2-5.4) M/uL Hgb (12.0-16.0) g/dL Hct (37-47) % MCV (80-100) fL MCH (25-34) pg MCHC (32-36) g/dL RDW Std Deviation (36.4-46.3) fL RDW Coeff of Maris (11.5-14.5) % Plt Count (130-400) K/uL MPV (7.4-10.4) fL Immature Gran % (Auto) % Neut % (Auto) % Lymph % (Auto) % Swisher % (Auto) % Eos % (Auto) % Baso % (Auto) % Neut # (Auto) (1.4-6.5) K/uL Lymph # (Auto) (1.2-3.4) K/uL Swisher # (Auto) (0.11-0.59) K/uL Eos # (Auto) (0-0.5) K/uL Baso # (Auto) (0-0.2) K/uL Immature Gran # (Auto) (0.00-0.02) K/uL PT (9.0-12.0) Seconds INR (0.9-1.1) APTT (21.0-31.0) Seconds PTT Ratio Sodium (136-145) mmol/L Potassium (3.5-5.1) mmol/L Chloride (98-107) mmol/L Carbon Dioxide (21-32) mmol/L Anion Gap (3-11) BUN (7-18) mg/dl Creatinine (0.6-1.2) mg/dl Est Cr Clr Drug Dosing ml/min Est GFR ( Amer) Est GFR (Non-Af Amer) BUN/Creatinine Ratio (10-20) Glucose (70-99) mg/dl Lactate (0.4-2.0) mmol/L Calcium (8.5-10.1) mg/dl Magnesium (1.8-2.4) mg/dl Total Bilirubin (0.2-1) mg/dl AST (15-37) U/L ALT (12-78) U/L Alkaline Phosphatase (45-117) U/L Total Protein (6.4-8.2) gm/dl Albumin (3.4-5.0) gm/dl Globulin (2.5-4.0) gm/dl Albumin/Globulin Ratio (0.9-2) Urine Color Urine Appearance (Clear) Urine pH (4.5-7.5) Ur Specific [place] (1.000-1.030) Urine Protein (Negative) Urine Glucose (UA) (Negative) Urine Ketones (Negative) Urine Blood (Negative) Urine Nitrite (Negative) Urine Bilirubin (Negative) Urine Urobilinogen (Negative) Ur Leukocyte Esterase (Negative) COVID-19 Eval Order COVID-19 PCR NEGATIVE (Negative) Nasopharyn COVID-19 PCR Cancelled Influ A Molecular Assay Negative (Negative) Influ B Molecular Assay Negative (Negative) 06/13/20 Range/Units 18:51 WBC (4.8-10.8) K/uL RBC (4.2-5.4) M/uL Hgb (12.0-16.0) g/dL Hct (37-47) % MCV (80-100) fL MCH (25-34) pg MCHC (32-36) g/dL RDW Std Deviation (36.4-46.3) fL RDW Coeff of Maris (11.5-14.5) % Plt Count (130-400) K/uL MPV (7.4-10.4) fL Immature Gran % (Auto) % Neut % (Auto) % Lymph % (Auto) % Swisher % (Auto) % Eos % (Auto) % Baso % (Auto) % Neut # (Auto) (1.4-6.5) K/uL Lymph # (Auto) (1.2-3.4) K/uL Swisher # (Auto) (0.11-0.59) K/uL Eos # (Auto) (0-0.5) K/uL Baso # (Auto) (0-0.2) K/uL Immature Gran # (Auto) (0.00-0.02) K/uL PT (9.0-12.0) Seconds INR (0.9-1.1) APTT (21.0-31.0) Seconds PTT Ratio Sodium (136-145) mmol/L Potassium (3.5-5.1) mmol/L Chloride (98-107) mmol/L Carbon Dioxide (21-32) mmol/L Anion Gap (3-11) BUN (7-18) mg/dl Creatinine (0.6-1.2) mg/dl Est Cr Clr Drug Dosing ml/min Est GFR ( Amer) Est GFR (Non-Af Amer) BUN/Creatinine Ratio (10-20) Glucose (70-99) mg/dl Lactate 4.9 H* (0.4-2.0) mmol/L Calcium (8.5-10.1) mg/dl Magnesium (1.8-2.4) mg/dl Total Bilirubin (0.2-1) mg/dl AST (15-37) U/L ALT (12-78) U/L Alkaline Phosphatase (45-117) U/L Total Protein (6.4-8.2) gm/dl Albumin (3.4-5.0) gm/dl Globulin (2.5-4.0) gm/dl Albumin/Globulin Ratio (0.9-2) Urine Color Urine Appearance (Clear) Urine pH (4.5-7.5) Ur Specific [place] (1.000-1.030) Urine Protein (Negative) Urine Glucose (UA) (Negative) Urine Ketones (Negative) Urine Blood (Negative) Urine Nitrite (Negative) Urine Bilirubin (Negative) Urine Urobilinogen (Negative) Ur Leukocyte Esterase (Negative) COVID-19 Eval Order COVID-19 PCR (Negative) Nasopharyn COVID-19 PCR Influ A Molecular Assay (Negative) Influ B Molecular Assay (Negative) Imaging Data Radiologist's Impression: XR chest 1V portable CLINICAL HISTORY: SEPSIS COMPARISON STUDY: Chest radiograph October 30, 2019. FINDINGS: Lung volumes are at the lower limits of normal. Lungs are clear. There is no pneumothorax or pleural effusion. Cardiac size is normal. Mediastinal contours are normal. There is no evidence for pulmonary edema. IMPRESSION: No acute cardiopulmonary findings. ACT 112: Negative or not required by law. Electronically signed by: Ferdinand Arreola M.D. 06/13/2020 5:26 PM Dictated: 06/13/201724Transcribed: 06/13/201724 ECG Data Indication: + weakness Rate (beats per minute): 131 Rhythm: + normal sinus ECG Intervals/blocks: + Normal IN and + Normal QT-c ECG ST segments: + Normal ST segments Additional Comments: QRS interval 68, no delta wave. [facility] Narrative 1524: The patient was evaluated in room C7. A complete history and physical exam was performed. Patient was seen in full airborne precautions including N95, gowns, gloves, face shield worn by me. Patient appears extremely anxious at this time. Patient be given Ativan. Patient be started on 1 L IV fluids. Patient was swab for COVID-19 and have lab work done. 1700: Patient remains tachycardic in the emergency department despite 1 L of IV fluids. Labs show a lactic acid of 5.4. Patient is afebrile. Her chest x-ray shows no infectious process. Urinalysis does not appear to be source of infection. Blood cultures have been sent. Patient will be given another liter of normal saline so she will have a total of greater than 30 cc/kg fluid resuscitation based off her ideal body weight. COVID-19 test will be done rapidly in-house at this time and we will plan on admitting the patient to the hospitalist service. Patient was also reporting diarrhea, stool cultures and C. difficile will also be ordered on the patient. 1900: Patient remains tachycardic. Repeat lactic acid after 30 cc/kg bolus of normal saline is 4.9. C. difficile and stool cultures are still pending. Patient will be admitted to [facility] hospitalist service. Impression & Plan Lactic acidemia Discharge Plan Visit Data Chief Complaint: Hyperglycemia Stated Complaint: HIGH BLOOD SUGAR ED Provider: Bret Barnes Discharge Problem: Lactic acidemia Patient Disposition: Admitted As Inpatient Forms Stand Alone Forms: My [facility] Prescriptions Prescriptions: No Action Lantus Solostar U-100 Insulin 100 unit/mL (3 mL) insulin pen 24 unit SQ QAM RF: 0 (DME) FreeStyle [place] 14 Day Sensor Kit See Rx Instructions miscellaneous .MEDSUPPLY Qty: 6 RF: 3 aspirin [Ecotrin Low Strength] 81 mg Tablet,Delayed Release (Dr/Ec) 81 mg PO QAM Qty: 30 RF: 0 docusate sodium [Colace] 100 mg Capsule 100 mg PO BID RF: 0 Trintellix 20 mg tablet 20 mg PO HS RF: 0 metformin 1,000 mg tablet 1,000 mg PO BID RF: 0 rosuvastatin 5 mg tablet 5 mg PO PM RF: 0 levothyroxine 137 mcg tablet 137 mcg PO QAM RF: 0 mirtazapine 30 mg tablet 30 mg PO HS RF: 0 aripiprazole [Abilify] 5 mg tablet 5 mg PO HS RF: 0 insulin lispro [Humalog KwikPen Insulin] 100 unit/mL insulin pen 2 unit SQ QPM RF: 0 Referrals Referrals: Andry Kerr MD [Primary Care Provider] -
[2020-06-13] MEDS ORDERED: GLUCAGON FOR INJ 1 MG VIAL SQ PRN (21:17)
[2020-06-13] MEDS ORDERED: ACETAMINOPHEN 325 MG TAB PO PRN (21:17)
[2020-06-13] MEDS ORDERED: CARBOHYDRATES FOR HYPOGLYCEMIA PO PRN (21:17)
[2020-06-13] MEDS ORDERED: GLUCOSE 10 TABS/TUBE PO PRN (21:17)
[2020-06-13] MEDS ORDERED: GLUCOSE 40% GEL 15 GM TUBE PO PRN (21:17)
[2020-06-13] MEDS ORDERED: DEXTROSE 50% 50 ML SYRINGE IV PRN (21:17)
[2020-06-13] MEDS: NSS + 20MEQ KCL 20 MEQ/1,000 ML BAG IV SCH (22:05)
[2020-06-13] MEDS: MAGNESIUM SULFATE / D5W 1 GM/100 ML BAG IV SCH (22:06)
[2020-06-14] MEDS: DOCUSATE SODIUM 100 MG CAP PO SCH ×3 (00:01→21:06)
[2020-06-14] MEDS: MAGNESIUM OXIDE 400 MG TAB PO SCH ×3 (00:01→21:07)
[2020-06-14] MEDS: ARIPiprazole 5 MG TAB PO SCH ×2 (00:01→21:05)
[2020-06-14] MEDS: ENOXAPARIN INJ 40 MG/0.4 ML SYR SQ SCH ×2 (00:02→21:13)
[2020-06-14] MEDS: MAGNESIUM SULFATE / D5W 1 GM/100 ML BAG IV SCH (00:08)
[2020-06-14] MEDS: INSULIN GLARGINE SOLOSTAR 100 UNITS/ML 3 ML PEN SC SCH ×3 (01:26→21:13)
[2020-06-14] MEDS: INSULIN ASPART 100 UNITS/ML 3 ML PEN SC SCH ×5 (01:26→21:12)
[2020-06-14] MEDS: NSS + 20MEQ KCL 20 MEQ/1,000 ML BAG IV SCH ×3 (06:01→21:19)
[2020-06-14] MEDS: LEVOTHYROXINE SODIUM 137 MCG TABLET PO SCH (06:02)
[2020-06-14 07:00] LABS: Basophils # (auto) 0.01 K/uL (0-0.2); Basophils % (auto) 0.1 %; Eosinophils # (auto) 0.17 K/uL (0-0.5); Hematocrit (blood only) 33.7 % (37-47); Hemoglobin 10.7 g/dL (12.0-16.0); Immature Granulocytes # (auto) 0.01 K/uL (0.00-0.02); Immature Granulocytes % (auto) 0.1 %; Lymphocytes # (auto) 3.16 K/uL (1.2-3.4); Lymphocytes % (auto) 36.7 %; Mean Corpuscular Hemoglobin 28.5 pg (25-34); Mean Corpuscular Hgb Conc 31.8 g/dL (32-36); Mean Corpuscular Volume 89.6 fL (80-100); Mean Platelet Volume 10.1 fL (7.4-10.4); Monocytes # (auto) 0.59 K/uL (0.11-0.59); Monocytes % (auto) 6.8 %; Neutrophils # (auto) 4.68 K/uL (1.4-6.5); Neutrophils % (auto) 54.3 %; Platelet Count 231 K/uL (130-400); RDW Coefficient of Variation 13.7 % (11.5-14.5); RDW Standard Deviation 44.7 fL (36.4-46.3); Red Blood Count 3.76 M/uL (4.2-5.4); White Blood Count 8.62 K/uL (4.8-10.8)
[2020-06-14 07:37] LABS: BUN Creatinine Ratio 14.5 (10-20); Calcium 8.2 mg/dl (8.5-10.1); Creatinine Clr Calc Pharmacy 118.5 ml/min; Est GFR (African American) 119.4; Magnesium 2.1 mg/dl (1.8-2.4); Potassium 3.5 mmol/L (3.5-5.1)
[2020-06-14] MEDS ORDERED: POTASSIUM CHLORIDE CRTAB 20 MEQ TABCR PO ONE (08:45)
[2020-06-14] MEDS: ASPIRIN 81 MG ECTAB PO SCH (09:36)
--- NOTE | 2020-06-14 10:10 | Electrocardiogram Report ---
Test Reason : Blood Pressure : / mmHG Vent. Rate : 131 BPM Atrial Rate : 131 BPM P-R Int : 146 ms QRS Dur : 068 ms QT Int : 294 ms P-R-T Axes : 018 014 030 degrees QTc Int : 434 ms Poor data quality, interpretation may be adversely affected Sinus tachycardia Cannot rule out Inferior infarct (cited on or before 13-FEB-2020) Abnormal ECG When compared with ECG of 13-FEB-2020 20:15, ST now depressed in Anterior leads Confirmed by Dusty Muniz ([id number]) on 06/14/2020 10:09:57 AM Referred By: REFERRED SELF Confirmed By:Dusty Muniz
--- NOTE | 2020-06-14 18:43 | Hospitalist Progress Note ---
Date of Service June 14, 2020 Assessment & Plan (1) Diarrhea: No further diarrhea reported by nursing Patient reports one episode at lunch time No further BM with dinner Will continue to monitor Negative for COVID-19 (2) T2DM (type 2 diabetes mellitus): Continue Lantus with SSI with Novolog (3) Hypothyroid: Continue levothyroxine Outpatient management with PCP (4) CVA (cerebral vascular accident): Prior history of CVA Continue aspirin Continue atorvastatin No current neurological deficits (5) Major depressive disorder, recurrent episode, severe with anxious distress: Continue home meds Currently appears stable (6) Lactic acidemia: Elevated on admission Now resolved (7) Abdominal pain: Resolved No further diarrhea (8) Cerebrovascular disease: Continue Aspirin (9) DVT prophylaxis: Continue enoxaparin 40 mg subcu daily Admission and Anticipated Discharge Date Admission Date: June 13, 2020 Anticipated date of discharge: 06/15/20 Supervising Physician Co-Signing Physician Notes Case d/w Mr. Dukes. Pt felt able to be d/c'd around lunch after no further diarrhea. She ate lunch, but then shortly after had return of "severe" diarrhea, several episodes. Pt would like to try dinner and with possible d/c after dinner if she feels her diarrhea is improving. Mild abd cramping with diarrhea today, otherwise no abd pain. Mild and diffuse abd pain noted on exam, c/w cramping related to more to diarrhea Plan to have pt call nursing after dinner if she would like to go home at that time. Subjective Attending: Dr. Soheila Vicente This is a 64-year-old female that was admitted yesterday for diarrhea and concerns with possible contact with Covid positive acquaintance. Patient was negative for COVID-19 on admission. She had not had any further bouts of diarrhea as of lunchtime today. When Dr. Vicente saw her this afternoon she reported that she had 1 episode of diarrhea. I contacted the floor nurse who was not able to endorse that report. I called the floor nurse again at 6:20 PM and patient still has not had any further diarrhea. She tolerated dinner well. She reports that she is not comfortable going home at this time. She denies any fever chills. She has no abdominal pain. She has no tenesmus. She has no shortness of breath. She does have high levels of anxiety. She has no other acute complaints at this time. Review of Systems Review of Systems: All systems reviewed & are unremarkable except as noted in Subjective Physical Exam Physical Exam: GENERAL : No acute distress. Appears nervous and anxious. She has a chronic tremor. EYES: No icterus, gaze conjugate NOSE: No evidence of epistaxis MOUTH: No lesions or candidiasis NECK: Supple LUNGS: CTA B/L, no wheezes, rales or rhonchi HEART: Regular, rate controlled ABDOMEN: Soft, NT, ND, BS Present EXTREMITIES: No LE edema, pedal pulses intact and equal bilaterally NEURO: A&OX3. Patient has a tremor but demonstrates no evidence of asterixis. No other focal neurological deficits. Results & Data Results & [facility] ([facility]) Vital Signs (Past 12 Hours) Vital Signs Temp Pulse Resp BP Pulse Ox 06/14/20 14:59 36.9 C 87 16 145/86 H 94 06/14/20 07:35 36.6 C 91 H 16 154/87 H 96 Laboratory Results 06/14/20 06:19 06/14/20 06:19 Diagnostic Findings No diagnostic imaging since 06/13/2020 PG Care Time/CCT Total # of Minutes Spent Total Time Spent with Patient: Total time spent is greater than 50% in coordination of care (as documented) at patient's floor/unit and/or counseling patient: 30 minutes over 2 visits Coding Level of Care Code 17822 Subseq Obs Care Lvl 2 Diagnoses Diarrhea R19.7 T2DM (type 2 diabetes mellitus) E11.9 Hypothyroid E03.9 CVA (cerebral vascular accident) I63.9 Major depressive disorder, recurrent episode, severe with anxious distress F33.2 Lactic acidemia E87.2 Abdominal pain R10.9 Cerebrovascular disease I67.9 DVT prophylaxis Z29.9
--- NOTE | 2020-06-14 19:47 | Billing Data ---
Date of Service June 14, 2020 Coding Level of Care Code 39848 OBS Care - Level 3
[2020-06-14] MEDS: ROSUVASTATIN CALCIUM 5 MG TAB PO SCH ×2 (21:06)
[2020-06-14] MEDS: MIRTAZAPINE TAB 15 MG TAB PO SCH ×2 (21:07)
[2020-06-15] MEDS: NSS + 20MEQ KCL 20 MEQ/1,000 ML BAG IV SCH ×2 (05:19→13:36)
[2020-06-15] MEDS: LEVOTHYROXINE SODIUM 137 MCG TABLET PO SCH (06:19)
[2020-06-15] MEDS: DOCUSATE SODIUM 100 MG CAP PO SCH (08:36)
[2020-06-15] MEDS: ASPIRIN 81 MG ECTAB PO SCH (08:37)
[2020-06-15] MEDS: MAGNESIUM OXIDE 400 MG TAB PO SCH (08:37)
[2020-06-15] MEDS: INSULIN GLARGINE SOLOSTAR 100 UNITS/ML 3 ML PEN SC SCH (09:00)
[2020-06-15] MEDS: INSULIN ASPART 100 UNITS/ML 3 ML PEN SC SCH ×2 (09:01→13:02)
--- NOTE | 2020-06-15 13:19 | Discharge Summary ---
Date of Service June 15, 2020 Admission HPI Per Admitting Provider Urszula is a 64-year-old female with a past medical history of type 2 diabetes, hypothyroidism, major depressive disorder, GERD, CVA, and hypertension who presents with approximately 3 days of general unwellness, cough, fatigue, and diarrhea and concern for Covid. Urszula reports her symptoms began , approximately 3 days ago. She reports she was in her normal state of health and felt fine Sunday and Sunday, but on she suddenly felt extremely fatigued, had onset of 5 to 6 times per day of liquid diarrhea without blood, decreased appetite, some right upper quadrant and epigastric abdominal pain, and a jump in her blood sugars from their normal of 90-100 up to the low 300s without change in her antiglycemics. She reports that she is also had near complete loss of appetite, and has been eating and drinking very little since that time. She denies shortness of breath and dyspnea, but notes she feels "wiped out ". Denies chest pain, chest pressure. She denies rash or skin changes. She reports her daughters are schoolteachers and have been exposed to Covid, her boyfriend who she lives with is also feeling poorly and he is an family law attorney for the group home who may get tested for Covid this week. She was afraid she could have been exposed to Covid, and wanted to be evaluated. She has not had any fever, and has had no change in taste or smell although she feels slightly congested. Medical history: Reviewed Medications: Reviewed. Surgical history: Reviewed. Allergies: Reviewed Social: Denies tobacco, alcohol, and recreational drug use. Lives with her boyfriend who is an family law attorney for the group home and who is also feeling unwell at home. CODE STATUS: Full code, discussed with patient at bedside Family history: Noncontributory Discharge Data Allergies Allergy/AdvReac Type Severity Reaction Status Date / Time cisapride Allergy Intermediate Hives Verified 06/13/20 17:34 doxycycline Allergy Intermediate Rash Verified 06/13/20 17:34 gadobutrol [From Gadavist] Allergy Intermediate Hives Verified 06/13/20 17:34 lansoprazole Allergy Intermediate Hives Verified 06/13/20 17:34 Penicillins Allergy Mild Rash Verified 06/13/20 17:34 tetracycline Allergy Mild Rash Verified 06/13/20 17:34 Consultations 06/13/20 18:06 ED Decision to Admit Stat Hospital Course (1) Diarrhea: No further diarrhea reported by nursing Patient reports one episode at lunch time No further BM with dinner Will continue to monitor Negative for COVID-19 (2) T2DM (type 2 diabetes mellitus): Continue Lantus with SSI with Novolog (3) Hypothyroid: Continue levothyroxine Outpatient management with PCP (4) CVA (cerebral vascular accident): Prior history of CVA Continue aspirin Continue atorvastatin No current neurological deficits (5) Major depressive disorder, recurrent episode, severe with anxious distress: Continue home meds Currently appears stable (6) Lactic acidemia: Elevated on admission Now resolved (7) Abdominal pain: Resolved No further diarrhea (8) Cerebrovascular disease: Continue Aspirin (9) DVT prophylaxis: Continue enoxaparin 40 mg subcu daily Discharge Plan Discharge Items Patient Disposition: Home - Self-Care Reason For Visit: GENERAL ILLNESS,DIARRHEA Discharge Diagnosis: Diarrhea and weakness Lifting: Gradually increase as tolerated Bathing: No limitations Sexual Activity: When tolerated Exercise/Sports: Gradually increase as tolerated Weightbearing: Full weightbearing Non-emergency contact: Primary Care Provider Call non-emergency contact if: your symptoms worsen and you have a fever Follow-up/Referrals: Andry Kerr MD [Primary Care Provider] - Diet: Carb Consistent or DM2, Heart Healthy and Low Fat Addtl Attending Provider Instructions: You were admitted with diarrhea and weakness as well as concern for COVID-19 secondary to exposure to an individual that may have been positive. Blood cultures were negative. A nasal swab was sent to the department of health and came back resulted as negative for COVID-19. You were negative for influenza A and influenza B. An order was placed to collect stool for C. difficile but was not able to be processed as you did not have any further diarrhea or enough stool to send to the lab. You did have an elevated lactic acid but this resolved on its own with some fluid and without any other intervention. A proca lcitonin level was also checked and was negative. This is an enzyme that is produced by bacteria and when the value was negative a usually means and no antibiotic therapy is required. You are being discharged home and do not require any changes to your medication that you usually take at home. Please follow-up with your primary care provider with worsening symptoms or if symptoms recur. Pending Studies at Discharge: No Stand-Alone Forms: [facility] Medications and DC Order Prescriptions: Continued Lantus Solostar U-100 Insulin 100 unit/mL (3 mL) insulin pen 24 unit SQ QAM RF: 0 (DME) FreeStyle [place] 14 Day Sensor Kit See Rx Instructions miscellaneous .MEDSUPPLY Qty: 6 RF: 3 aspirin [Ecotrin Low Strength] 81 mg Tablet,Delayed Release (Dr/Ec) 81 mg PO QAM Qty: 30 RF: 0 docusate sodium [Colace] 100 mg Capsule 100 mg PO BID RF: 0 Trintellix 20 mg tablet 20 mg PO HS RF: 0 metformin 1,000 mg tablet 1,000 mg PO BID RF: 0 rosuvastatin 5 mg tablet 5 mg PO PM RF: 0 levothyroxine 137 mcg tablet 137 mcg PO QAM RF: 0 mirtazapine 30 mg tablet 30 mg PO HS RF: 0 aripiprazole [Abilify] 5 mg tablet 5 mg PO HS RF: 0 insulin lispro [Humalog KwikPen Insulin] 100 unit/mL insulin pen 2 unit SQ QPM RF: 0 Discharge Orders: Discharge Order (Routine); Ordered 06/15/20 Ordered By: Bright Dukes Admission Data Admit Date/Time: 06/13/20 19:48 Attending Provider: Santosh Watson Admit Provider: Tim Mckeon Primary Care Provider: Andry Kerr Other Providers: Soheila Vicente Coding Diagnoses Diarrhea R19.7 T2DM (type 2 diabetes mellitus) E11.9 Hypothyroid E03.9 CVA (cerebral vascular accident) I63.9 Major depressive disorder, recurrent episode, severe with anxious distress F33.2 Lactic acidemia E87.2 Abdominal pain R10.9 Cerebrovascular disease I67.9 DVT prophylaxis Z29.9
== END 2020-06-15 14:26 | disposition home or self-care (01) ==
LOC: ED 15:01 → 3E 15:01 → SUATTDRO 19:48 → 3E 20:58

== ENCOUNTER 2021-03-24 17:54 | Observation (INO) ==
--- NOTE | 2021-03-24 18:30 | Emergency Department Note ---
Impression & Plan Abdominal pain, Hyperglycemia, Chest pain, Nausea & vomiting, Hypercalcemia ED Provider Note NAME: JONATHAN TOVAR AGE: 65 SEX: F : 1955 ARRIVES VIA: Walk-In INFORMANT: Patient, ED PROVIDER(S): Vikash Montalvo MD Chief Complaint: Chest pain abdominal pain HPI: Patient does present after eating out at a restaurants and did have some abdominal pain with associated vomiting. The patient describes it in the upper abdomen, achy, and is nonradiating. The patient did have chest pain that was present yesterday and is not as bad today. Patient denies any inciting event with regards to her chest pain. Patient denies any shortness of breath or lower extremity swelling. No prior history of DVT or PE. The patient denies any exertional symptoms or diaphoresis. Patient denies any recent trauma. Patient did not take anything prior to arrival. The patient's emesis was not reported to be bloody. The patient denies any alcohol or tobacco use. ROS: See HPI for pertinent positives and negatives. A total of 10 systems were reviewed and otherwise negative. Past medical history: See below Surgical history: See below Social history: See below Physical Exam: GENERAL: Mildly uncomfortable in appearance, wearing glasses. EYE EXAM: Normal conjunctiva. PERRL, no anisocoria and EOM's grossly intact w/o pain. OROPHARYNX: Dry mucus membranes. Grossly normal dentition. NECK: Supple, no nuchal rigidity, no adenopathy, non-tender. No signs of meningismus. LUNGS: Clear to auscultation. Normal chest wall mechanics. HEART: Tachycardic and regular, no MRG. ABDOMEN: Abdomen soft, mild upper abdominal discomfort but without peritonitis normo-active bowel sounds, no masses, no rebound or guarding. BACK: No CVA TTP. SKIN: No rashes and no bruising. UPPER EXTREMITIES: Upper extremities are grossly normal. LOWER EXTREMITIES: Grossly normal, no edema. NEURO EXAM: A&O x3, cranial nerves II-XII grossly intact, normal speech, moves all 4 extremities on command w/o issue. Differential diagnoses: .dd Course: Patient was seen and evaluated the bedside. Full history physical exam was performed. EKG interpreted by me Sinus tachycardia, rate of 127, normal intervals, normal axis, no obvious ST seda nges. Imaging Studies: See Below Cardiac monitoring: An order was placed for continuous cardiac monitoring. The monitor shows a rate of 105 with tachycardic and regular rhythm. MDM: Patient does present concern for nausea vomiting and upper abdominal discomfort with occasional chest pain. Blood work is obtained. Patient was treated symptomatically. The patient does have a white count of 11 with normal H&H and platelet count. The patient's kidney function grossly unremarkable with mild pr erenal azotemia. The patient does have elevated glucose and slightly elevated calcium. AST and ALT slightly elevated. CT abdomen pelvis along with CT angiography of the chest was ordered. These are unremarkable. Troponin negative. Given the patient's persistent discomfort I did speak with the on- call hospitalist Dr. Rogers. The patient does have a remote history of TIA and so CT head of the was ordered. Patient was admitted to the medicine service. The patient may have had some akathisia after the Compazine so she was ordered some Benadryl. Past Med/Surg History Medical History (Updated 03/25/21 @ 00:14 by Vikash Montalvo MD) Acute gastritis Altered mental status Altered mental status Anxiety Cervical dysplasia Chest pain Constipation Diabetes Diabetic femoral mononeuropathy Diabetic peripheral neuropathy DKA (diabetic ketoacidoses) Dyslipidemia Encounter for routine gynecological examination Fecal impaction GERD (gastroesophageal reflux disease) Gout History of anemia HNP (herniated nucleus pulposus), lumbar Hyperlipidemia Hypertension Hypoglycemia Hypokalemia Hypotension Hypothyroidism Intractable low back pain Lactic acidemia Lower extremity weakness Lumbar stenosis with neurogenic claudication Lumbosacral radiculopathy Major depressive disorder Major depressive disorder, recurrent episode, severe with anxious distress Polyneuropathy Postsurgical hypothyroidism Sensory ataxia Suicide attempt T2DM (type 2 diabetes mellitus) Tachycardia Vertigo Surgical History H/O cardiac catheterization H/O dilation and curettage H/O laparoscopy History of colposcopy with cervical biopsy History of dental surgery History of hysterectomy History of tonsillectomy History of total abdominal hysterectomy Previous back surgery Status post hysteroscopic ablation of endometrium Status post lumbar spine surgery for decompression of spinal cord Family History Mother , in her early 70s of some sort of cancer (patient not clear if it was breast cancer) Breast cancer Diabetes Grandmother Breast cancer Grandmother Breast cancer Unknown Colon cancer Father , Diet it age 78 of a myelodysplastic syndrome. He also had Mmdkeku-Jrria-Xegrh disease. Myelodysplasia (myelodysplastic syndrome) Jmgpiwp-Vqnvc-Omxew disease Heart disease Brother Qimlaaf-Wsnkk-Ggtve disease Other No pertinent family history in first degree relatives Social History Smoking Status: Never smoker Hx Alcohol Use: No Hx Substance Use: No Preferred Language: [place] Communication Ability: Effective Complex Manager Required: No Beliefs That Will Affect Care: None marital status: Life Partner Current Living Situation: Other current occupational status: disabled current occupation: Patient used to work at [employer] for 23 years and then [employer] How many Children do You have: 2 other: Retired on disability from her back 3 years ago Feels Safe at Home: Yes Assistive Devices: Walker Allergies Allergies Allergy/AdvReac Type Severity Reaction Status Date / Time cisapride Allergy Intermediate Hives Verified 03/09/21 12:54 doxycycline Allergy Intermediate Rash Verified 03/09/21 12:54 gadobutrol [From Gadavist] Allergy Intermediate Hives Verified 03/09/21 12:54 lansoprazole Allergy Intermediate Hives Verified 03/09/21 12:54 Penicillins Allergy Mild Rash Verified 03/09/21 12:54 tetracycline Allergy Mild Rash Verified 03/09/21 12:54 Home Meds Home Medications Medication Instructions Recorded Confirmed levothyroxine 137 mcg tablet 137 mcg PO QAM 05/04/18 03/24/21 mirtazapine 30 mg tablet 30 mg PO HS 05/04/18 03/24/21 docusate sodium 100 mg capsule 100 mg PO BID 06/06/19 03/24/21 (Colace) vortioxetine 20 mg tablet 20 mg PO HS 06/06/19 03/24/21 (Trintellix) metformin 1,000 mg tablet 1,000 mg PO BID 10/01/19 03/24/21 aripiprazole 5 mg tablet (Abilify) 5 mg PO HS 10/30/19 03/24/21 rosuvastatin 5 mg tablet 5 mg PO PM 06/13/20 03/24/21 Previous Rx's Medication Instructions Recorded aspirin 81 mg tablet,delayed 81 mg PO QAM #30 tab 03/02/19 release (Ecotrin Low Strength) ondansetron 4 mg disintegrating 4 mg PO Q8H PRN #6 tab 12/28/20 tablet insulin glargine 100 unit/mL (3 20 unit SQ QAM #2 box 03/09/21 mL) subcutaneous pen (Lantus Solostar U-100 Insulin) semaglutide (Ozempic) 0.25 mg SUBCUT .weekly 30 Days 03/09/21 #1.5 ml Results & Data (ED) Vital Signs Vital Signs - 24 hr 03/24/21 18:03 03/24/21 18:29 03/24/21 19:00 Temperature 37.1 C Temperature Source Oral Pulse Rate 128 H Pulse Rate [Finger] 120 H Pulse Rate from SpO2 Sensor Pulse Rhythm Regular Pulse Rhythm [Finger] Pulse Strength Normal Respiratory Rate 22 32 H Respiratory Effort / Characteristics Non-Labored Spontaneous Respiratory Depth Normal Respiratory Pattern Regular Blood Pressure 128/85 Blood Pressure [Left Arm] 151/100 H Blood Pressure Mean 99 Blood Pressure Mean [Left Arm] 117 Pulse Oximetry 96 96 95 Oxygen Delivery Method Room Air Room Air Room Air Sepsis Recent Fever Within 48 Hours No Sepsis New/Unexplained Change in Mental Status N/A Sepsis Action Taken by Nursing No Action Required 03/24/21 20:00 03/24/21 22:00 03/24/21 23:30 Temperature Temperature Source Pulse Rate 107 H Pulse Rate [Finger] 79 81 Pulse Rate from SpO2 Sensor 107 H Pulse Rhythm Pulse Rhythm [Finger] Regular Regular Pulse Strength Respiratory Rate 16 15 20 Respiratory Effort / Characteristics Non-Labored Non-Labored Respiratory Depth Normal Normal Respiratory Pattern Blood Pressure 118/70 Blood Pressure [Left Arm] Blood Pressure Mean 86 Blood Pressure Mean [Left Arm] Pulse Oximetry 95 96 96 Oxygen Delivery Method Room Air Room Air Sepsis Recent Fever Within 48 Hours Sepsis New/Unexplained Change in Mental Status Sepsis Action Taken by Longterm Medications Current Medication List: was personally reviewed by me Laboratory Data Attestation: I reviewed the patient's lab results. Result diagrams: 03/24/21 18:28 03/24/21 18:28 Lab Results 03/24/21 03/24/21 03/24/21 Range/Units 18:28 18:28 18:28 WBC 11.54 H (4.8-10.8) K/uL RBC 4.79 (4.2-5.4) M/uL Hgb 14.0 (12.0-16.0) g/dL Hct 41.4 (37-47) % MCV 86.4 (80-100) fL MCH 29.2 (25-34) pg MCHC 33.8 (32-36) g/dL RDW Std Deviation 43.2 (36.4-46.3) fL RDW Coeff of Maris 13.9 (11.5-14.5) % Plt Count 312 (130-400) K/uL MPV 10.4 (7.4-10.4) fL Immature Gran % (Auto) 0.3 % Neut % (Auto) 59.1 % Lymph % (Auto) 32.5 % Monona % (Auto) 6.3 % Eos % (Auto) 1.6 % Baso % (Auto) 0.2 % Neut # (Auto) 6.82 H (1.4-6.5) K/uL Lymph # (Auto) 3.75 H (1.2-3.4) K/uL Monona # (Auto) 0.73 H (0.11-0.59) K/uL Eos # (Auto) 0.18 (0-0.5) K/uL Baso # (Auto) 0.02 (0-0.2) K/uL Immature Gran # (Auto) 0.04 H (0.00-0.02) K/uL APTT 21.8 (21.0-31.0) Seconds PTT Ratio 0.8 Sodium 138 (136-145) mmol/L Potassium 4.3 (3.5-5.1) mmol/L Chloride 105 (98-107) mmol/L Carbon Dioxide 25 (21-32) mmol/L Anion Gap 8.0 (3-11) BUN 18 (7-18) mg/dl Creatinine 0.85 (0.6-1.2) mg/dl Est Cr Clr Drug Dosing 65.7 ml/min Est GFR ( Amer) 83.9 ml/min Est GFR (Non-Af Amer) 72.4 ml/min BUN/Creatinine Ratio 21.5 H (10-20) Glucose 242 H (70-99) mg/dl Calcium 10.3 H (8.5-10.1) mg/dl Total Bilirubin 0.5 (0.2-1) mg/dl AST 67 H (15-37) U/L ALT 98 H (12-78) U/L Alkaline Phosphatase 99 (45-117) U/L Troponin I < 0.015 (0-0.045) ng/ml Total Protein 8.4 H (6.4-8.2) gm/dl Albumin 3.8 (3.4-5.0) gm/dl Globulin 4.6 H (2.5-4.0) gm/dl Albumin/Globulin Ratio 0.8 L (0.9-2) Lipase 195 (73-393) U/L COVID-19 Eval Order 03/24/21 Range/Units 23:30 WBC (4.8-10.8) K/uL RBC (4.2-5.4) M/uL Hgb (12.0-16.0) g/dL Hct (37-47) % MCV (80-100) fL MCH (25-34) pg MCHC (32-36) g/dL RDW Std Deviation (36.4-46.3) fL RDW Coeff of Maris (11.5-14.5) % Plt Count (130-400) K/uL MPV (7.4-10.4) fL Immature Gran % (Auto) % Neut % (Auto) % Lymph % (Auto) % Monona % (Auto) % Eos % (Auto) % Baso % (Auto) % Neut # (Auto) (1.4-6.5) K/uL Lymph # (Auto) (1.2-3.4) K/uL Monona # (Auto) (0.11-0.59) K/uL Eos # (Auto) (0-0.5) K/uL Baso # (Auto) (0-0.2) K/uL Immature Gran # (Auto) (0.00-0.02) K/uL APTT (21.0-31.0) Seconds PTT Ratio Sodium (136-145) mmol/L Potassium (3.5-5.1) mmol/L Chloride (98-107) mmol/L Carbon Dioxide (21-32) mmol/L Anion Gap (3-11) BUN (7-18) mg/dl Creatinine (0.6-1.2) mg/dl Est Cr Clr Drug Dosing ml/min Est GFR ( Amer) ml/min Est GFR (Non-Af Amer) ml/min BUN/Creatinine Ratio (10-20) Glucose (70-99) mg/dl Calcium (8.5-10.1) mg/dl Total Bilirubin (0.2-1) mg/dl AST (15-37) U/L ALT (12-78) U/L Alkaline Phosphatase (45-117) U/L Troponin I (0-0.045) ng/ml Total Protein (6.4-8.2) gm/dl Albumin (3.4-5.0) gm/dl Globulin (2.5-4.0) gm/dl Albumin/Globulin Ratio (0.9-2) Lipase (73-393) U/L COVID-19 Eval Order Covid19 at [facility] Administered Medications Discontinued Medications Diphenhydramine HCl (Diphenhydramine 50 Mg/Ml Vial) 12.5 mg IV NOW STA Stop: 03/24/21 23:19 Last Admin: 03/24/21 23:30 Dose: 12.5 mg Documented by: [id number] Sodium Chloride (Nss 1000ml) 1,000 mls @ 999 mls/hr IV .Q1H1M STA Stop: 03/24/21 19:46 Last Infusion: 03/24/21 20:14 Dose: 0 mls/hr Documented by: [id number] Admin: 03/24/21 19:08 Dose: 999 mls/hr Documented by: [id number] Lorazepam (Ativan) 1 mg in 2 mls @ 2 mls/min IV NOW STA Stop: 03/24/21 18:47 Last Admin: 03/24/21 19:08 Dose: 2 mls/min Documented by: [id number] Sodium Chloride (Nss 1000ml) 1,000 mls @ 999 mls/hr IV .Q1H1M ONE Stop: 03/24/21 20:50 Last Infusion: 03/24/21 21:06 Dose: 0 mls/hr Documented by: [id number] Admin: 03/24/21 20:10 Dose: 999 mls/hr Documented by: [id number] Prochlorperazine (Compazine) 1 mls @ 1 mls/min IV ONE ONE Stop: 03/24/21 19:51 Last Admin: 03/24/21 20:09 Dose: 1 mls/min Documented by: [id number] Ioversol (Optiray 320 125ml) 120 ml IV ONCE ONE Stop: 03/24/21 20:40 Last Admin: 03/24/21 20:39 Dose: 120 ml Documented by: [id number] Ondansetron HCl (Ondansetron Inj 2 Mg/Ml 2 Ml Vial) 4 mg IV NOW STA Stop: 03/24/21 18:47 Last Admin: 03/24/21 19:08 Dose: 4 mg Documented by: [id number] Imaging Data Radiologist's Impression: Chest X-Ray 03/24/21 18:46 XR chest 1V portable HISTORY: 65 years-old Female Chest Pain acute atypical chest pain COMPARISON: Chest radiograph 12/27/2020 TECHNIQUE: Portable AP view of the chest FINDINGS: Cardiac silhouette is mildly enlarged. There is no pneumothorax, pleural effusion, airspace consolidation or overt pulmonary edema. Degenerative changes of the shoulders and spine. IMPRESSION: No acute process. ACT 112: Negative or not required by law. The above report was generated using voice recognition software. It may contain grammatical, syntax or spelling errors. Electronically signed by: Ino Flanagan M.D. 03/24/2021 7:18 PM Abdomen/Pelvis CT 03/24/21 19:50 CT angio chest PE protocol, CT abd pelvis IV con only HISTORY: 65 years-old Female with PE. Acute shortness of breath with upper abdominal pain TECHNIQUE: Multiple CTA images of the chest were obtained after the intravenous administration of 110 ml Optiray. Coronal and sagittal MIPS were obtained from the axial data set and were submitted for review. All measurements were obtained according to NASCET criteria. A dose lowering technique was utilized adhering to the principles of ALARA. COMPARISON: CT abdomen pelvis 02/13/2020, CTA chest 07/31/2016 FINDINGS: CTA: Mild cardiomegaly. No pericardial effusion. Mitral annular calcifications. Unchanged mild ectasia of the ascending thoracic aorta, 3.7 cm with mild atherosclerosis. Unremarkable pulmonary artery. No pulmonary emboli are identified. The segmental and subsegmental branches are suboptimally evaluated the level of the lung bases secondary to respiratory motion artifact. CT CHEST: No thyroid nodule. No adenopathy. No pneumothorax, pleural effusion, airspace consolidation or overt pulmonary edema. Mild bilateral groundglass densities with mosaic attenuation suggestive of air trapping with atelectasis. Mild bronchial wall thickening. There are no suspicious pulmonary nodules or masses. 4 mm solid nodule of the left lung apex on image 191 appears stable to slightly increased in size from the 2016 study which is likely benign. Unremarkable soft tissues. There is no acute fracture. Degenerative changes of the shoulders and spine. CT ABDOMEN/PELVIS: Indeterminate 7 mm hypodense splenic lesion is unchanged and likely benign. Moderate generalized pancreatic atrophy with coarse calcifications suggestive of chronic pancreatitis. Mild gallbladder distention without wall thickening or pericholecystic edema identified. Unremarkable adrenal glands and liver. Patency of the hepatic and portal veins. No biliary ductal dilation identified. 1.5 cm cyst of the inferior pole left kidney. Mild nonspecific bilateral perinephric stranding without hydronephrosis. Unremarkable urinary bladder. Hysterectomy. No adnexal mass lesions. Atherosclerosis of the aorta without aneurysm. No adenopathy. No bowel obstruction or bowel wall thickening. Colonic diverticulosis. Normal appendix. No ascites or mesenteric inflammation. Prior laminectomy with posterior interbody gabriela and screw fusion and discectomy at L4-L5. The hardware appears intact. The left L4 pedicle screw extends along the left lateral margin of the vertebral body. Probable vertebral body hemangioma at L3. IMPRESSION: 1. No pulmonary emboli. 2. Mild bilateral atelectasis with air trapping. 3. No bowel obstruction or bowel wall thickening. Normal appendix. 4. Colonic diverticulosis. 5. Additional findings as above. ACT 112: Negative or not required by law. The above report was generated using voice recognition software. It may contain grammatical, syntax or spelling errors. Electronically signed by: Ino Flanagan M.D. 03/24/2021 9:10 PM Chest CTA 03/24/21 19:50 CT angio chest PE protocol, CT abd pelvis IV con only HISTORY: 65 years-old Female with PE. Acute shortness of breath with upper abdominal pain TECHNIQUE: Multiple CTA images of the chest were obtained after the intravenous administration of 110 ml Optiray. Coronal and sagittal MIPS were obtained from the axial data set and were submitted for review. All measurements were obtained according to NASCET criteria. A dose lowering technique was utilized adhering to the principles of ALARA. COMPARISON: CT abdomen pelvis 02/13/2020, CTA chest 07/31/2016 FINDINGS: CTA: Mild cardiomegaly. No pericardial effusion. Mitral annular calcifications. Unchanged mild ectasia of the ascending thoracic aorta, 3.7 cm with mild atherosclerosis. Unremarkable pulmonary artery. No pulmonary emboli are identified. The segmental and subsegmental branches are suboptimally evaluated the level of the lung bases secondary to respiratory motion artifact. CT CHEST: No thyroid nodule. No adenopathy. No pneumothorax, pleural effusion, airspace consolidation or overt pulmonary edema. Mild bilateral groundglass densities with mosaic attenuation suggestive of air trapping with atelectasis. Mild bronchial wall thickening. There are no suspicious pulmonary nodules or masses. 4 mm solid nodule of the left lung apex on image 191 appears stable to slightly increased in size from the 2016 study which is likely benign. Unremarkable soft tissues. There is no acute fracture. Degenerative changes of the shoulders and spine. CT ABDOMEN/PELVIS: Indeterminate 7 mm hypodense splenic lesion is unchanged and likely benign. Moderate generalized pancreatic atrophy with coarse calcifications suggestive of chronic pancreatitis. Mild gallbladder distention without wall thickening or pericholecystic edema identified. Unremarkable adrenal glands and liver. Patency of the hepatic and portal veins. No biliary ductal dilation identified. 1.5 cm cyst of the inferior pole left kidney. Mild nonspecific bilateral perinephric stranding without hydronephrosis. Unremarkable urinary bladder. Hysterectomy. No adnexal mass lesions. Atherosclerosis of the aorta without aneurysm. No adenopathy. No bowel obstruction or bowel wall thickening. Colonic diverticulosis. Normal appendix. No ascites or mesenteric inflammation. Prior laminectomy with posterior interbody gabriela and screw fusion and discectomy at L4-L5. The hardware appears intact. The left L4 pedicle screw extends along the left lateral margin of the vertebral body. Probable vertebral body hemangioma at L3. IMPRESSION: 1. No pulmonary emboli. 2. Mild bilateral atelectasis with air trapping. 3. No bowel obstruction or bowel wall thickening. Normal appendix. 4. Colonic diverticulosis. 5. Additional findings as above. ACT 112: Negative or not required by law. The above report was generated using voice recognition software. It may contain grammatical, syntax or spelling errors. Electronically signed by: Ino Flanagan M.D. 03/24/2021 9:10 PM Discharge Plan Visit Data Chief Complaint: Chest Pain Stated Complaint: VOMITING, CHEST PAIN ED Provider: Vikash Montalvo Discharge Problem: Abdominal pain, Hyperglycemia, Chest pain, Nausea & vomiting, Hypercalcemia Patient Disposition: Admitted As Inpatient Forms Stand Alone Forms: My [facility] Prescriptions Prescriptions: No Action Ozempic 0.25 mg or 0.5 mg(2 mg/1.5 mL) pen injector 0.25 mg subcut .weekly 30 Days Qty: 1.5 RF: 0 Lantus Solostar U-100 Insulin 100 unit/mL (3 mL) insulin pen 20 unit SQ QAM Qty: 2 RF: 3 aspirin [Ecotrin Low Strength] 81 mg Tablet,Delayed Release (Dr/Ec) 81 mg PO QAM Qty: 30 RF: 0 docusate sodium [Colace] 100 mg Capsule 100 mg PO BID RF: 0 Trintellix 20 mg tablet 20 mg PO HS RF: 0 metformin 1,000 mg tablet 1,000 mg PO BID RF: 0 rosuvastatin 5 mg tablet 5 mg PO PM RF: 0 levothyroxine 137 mcg tablet 137 mcg PO QAM RF: 0 mirtazapine 30 mg tablet 30 mg PO HS RF: 0 aripiprazole [Abilify] 5 mg tablet 5 mg PO HS RF: 0 ondansetron 4 mg tablet,disintegrating 4 mg PO Q8H PRN (Reason: nausea and vomiting) Qty: 6 RF: 0 Referrals Referrals: Andry Kerr MD [Primary Care Provider] -
[2021-03-24] MEDS ORDERED: LORazepam 1 MG/2 ML VIAL IV STA (18:46)
[2021-03-24] MEDS ORDERED: ONDANSETRON INJ 2 MG/ML 2 ML VIAL IV STA (18:46)
[2021-03-24] MEDS ORDERED: SODIUM CHLORIDE 0.9% 1000ML 1,000 ML IV STA (18:46)
[2021-03-24 19:05] LABS: Basophils # (auto) 0.02 K/uL (0-0.2); Basophils % (auto) 0.2 %; Eosinophils # (auto) 0.18 K/uL (0-0.5); Eosinophils % (auto) 1.6 %; Hematocrit (blood only) 41.4 % (37-47); Immature Granulocytes # (auto) 0.04 K/uL (0.00-0.02); Immature Granulocytes % (auto) 0.3 %; Lymphocytes # (auto) 3.75 K/uL (1.2-3.4); Lymphocytes % (auto) 32.5 %; Mean Corpuscular Hemoglobin 29.2 pg (25-34); Mean Corpuscular Hgb Conc 33.8 g/dL (32-36); Mean Corpuscular Volume 86.4 fL (80-100); Mean Platelet Volume 10.4 fL (7.4-10.4); Monocytes # (auto) 0.73 K/uL (0.11-0.59); Monocytes % (auto) 6.3 %; Neutrophils # (auto) 6.82 K/uL (1.4-6.5); Neutrophils % (auto) 59.1 %; Platelet Count 312 K/uL (130-400); RDW Coefficient of Variation 13.9 % (11.5-14.5); RDW Standard Deviation 43.2 fL (36.4-46.3); Red Blood Count 4.79 M/uL (4.2-5.4); White Blood Count 11.54 K/uL (4.8-10.8)
[2021-03-24 19:18] LABS: Partial Thromboplastin Ratio 0.8; Partial Thromboplastin Time 21.8 Seconds (21.0-31.0)
--- NOTE | 2021-03-24 19:19 | XRay Report ---
XR chest 1V portable HISTORY: 65 years-old Female Chest Pain acute atypical chest pain COMPARISON: Chest radiograph 12/27/2020 TECHNIQUE: Portable AP view of the chest FINDINGS: Cardiac silhouette is mildly enlarged. There is no pneumothorax, pleural effusion, airspace consolida tion or overt pulmonary edema. Degenerative changes of the shoulders and spine. IMPRESSION: No acute process. ACT 112: Negative or not required by law. The above report was generated using voice recognition software. It may contain grammatical, syntax o r spelling errors. Electronically signed by: Ino Flanagan M.D. 03/24/2021 7:18 PM
[2021-03-24 19:24] LABS: Alanine Aminotransferase 98 U/L (12-78); Albumin Level 3.8 gm/dl (3.4-5.0); Aspartate Aminotransferase 67 U/L (15-37); BUN Creatinine Ratio 21.5 (10-20); Blood Urea Nitrogen 18 mg/dl (7-18); Calcium 10.3 mg/dl (8.5-10.1); Carbon Dioxide 25 mmol/L (21-32); Chloride 105 mmol/L (98-107); Creatinine Clr Calc Pharmacy 65.7 ml/min; Est GFR (African American) 83.9 ml/min; Est GFR (Non-African American) 72.4 ml/min; Glucose 242 mg/dl (70-99); Lipase 195 U/L (73-393); Potassium 4.3 mmol/L (3.5-5.1); Sodium 138 mmol/L (136-145)
[2021-03-24 19:29] LABS: Albumin Globulin Ratio 0.8 (0.9-2); Alkaline Phosphatase 99 U/L (45-117); Bilirubin,Total 0.5 mg/dl (0.2-1); Globulin 4.6 gm/dl (2.5-4.0); Total Protein 8.4 gm/dl (6.4-8.2); Troponin I < 0.015 ng/ml (0-0.045)
[2021-03-24] MEDS ORDERED: SODIUM CHLORIDE 0.9% 1000ML 1,000 ML IV ONE (19:50)
[2021-03-24] MEDS ORDERED: PROCHLORPERAZINE 1 ML IV ONE (19:50)
[2021-03-24] MEDS ORDERED: OPTIRAY 320 125ml IV ONE (20:39)
--- NOTE | 2021-03-24 21:11 | CT Scan Report ---
CT angio chest PE protocol, CT abd pelvis IV con only HISTORY: 65 years-old Female with PE. Acute shortness of breath with upper abdominal pain TECHNIQUE: Multiple CTA images of the chest were obtained after the intravenous administration of 110 ml Optiray. Coronal and sagittal MIPS were obtained from the axial data set and were submitted for review. All measurements were obtained according to NASCET criteria. A dose lowering technique was u tilized adhering to the principles of ALARA. COMPARISON: CT abdomen pelvis 02/13/2020, CTA chest 07/31/2016 FINDINGS: CTA: Mild cardiomegaly. No pericardial effusion. Mitral annular calcifications. Unchanged mild ectasia of the ascending thoracic aorta, 3.7 cm with mild atherosclerosis. Unremarkable pulmonary artery. No pul monary emboli are identified. The segmental and subsegmental branches are suboptimally evaluated the level of the lung bases secondary to respiratory motion artifact. CT CHEST: No thyroid nodule. No adenopathy. No pneumothorax, pleural effusion, airspace consolidation or overt pulmonary edema. Mild bilateral groundglass densities with mosaic attenuation suggestive of air ibis ing with atelectasis. Mild bronchial wall thickening. There are no suspicious pulmonary nodules or ma sses. 4 mm solid nodule of the left lung apex on image 191 appears stable to slightly increased in si ze from the 2016 study which is likely benign. Unremarkable soft tissues. There is no acute fracture. Degenerative changes of the shoulders and spine. CT ABDOMEN/PELVIS: Indeterminate 7 mm hypodense splenic lesion is unchanged and likely benign. Moderate generalized panc reatic atrophy with coarse calcifications suggestive of chronic pancreatitis. Mild gallbladder disten tion without wall thickening or pericholecystic edema identified. Unremarkable adrenal glands and van er. Patency of the hepatic and portal veins. No biliary ductal dilation identified. 1.5 cm cyst of the inferior pole left kidney. Mild nonspecific bilateral perinephric stranding withou t hydronephrosis. Unremarkable urinary bladder. Hysterectomy. No adnexal mass lesions. Atherosclerosi s of the aorta without aneurysm. No adenopathy. No bowel obstruction or bowel wall thickening. Colonic diverticulosis. Normal appendix. No ascites or mesenteric inflammation. Prior laminectomy with posterior interbody gabriela and screw fusion and discect judie at L4-L5. The hardware appears intact. The left L4 pedicle screw extends along the left lateral m argin of the vertebral body. Probable vertebral body hemangioma at L3. IMPRESSION: 1. No pulmonary emboli. 2. Mild bilateral atelectasis with air trapping. 3. No bowel obstruction or bowel wall thickening. Normal appendix. 4. Colonic diverticulosis. 5. Additional findings as above. ACT 112: Negative or not required by law. The above report was generated using voice recognition software. It may contain grammatical, syntax o r spelling errors. Electronically signed by: Ino Flanagan M.D. 03/24/2021 9:10 PM
[2021-03-24] MEDS ORDERED: diphenhydrAMINE 50 MG/ML VIAL IV STA (23:18)
--- NOTE | 2021-03-25 00:01 | History & Physical Report ---
Date of Service March 25, 2021 Assessment & Plan (1) Abdominal pain: Plan: 1. Chest pain - 1st troponin negative, continue to trend - EKG w/o ST segment changes, sinus tach - suspect more gastric etiology than cardiac - CT Chest negative for PE - prn nitro Gastric Pain -CT A/p: Indeterminate 7 mm hypodense splenic lesion is unchanged and likely benign. Moderate generalized pancreatic atrophy with coarse calcifications suggestive of chronic pancreatitis - compazine/zofran for nausea - likely component of diabetic gastroparesis. Would benefit from education about meal size, schedule, metoclopramide if refractory symptoms. - IV famotidine CAD - cont asa, statin DM2 - cont insulin glargine 20u AM - SSI - hold metformin hypothyroidism - cont levothyroxine Major Depression - cont abilify, mirtazipine, trintillex DVT ppx: lovenox FEN/GI: heart healthy, DM2 diet Code status: Full code Dispo: med/tele (2) Chest pain: (3) Nausea & vomiting: (4) Diabetic peripheral neuropathy: (5) Cerebrovascular disease: (6) Postsurgical hypothyroidism: (7) Hyperlipidemia: (8) GERD (gastroesophageal reflux disease): History of Present Illness Primary Care Provider: Andry Kerr MD 65 yo F with hx stroke, DM2, hypothyroidism, HLD in ER for complaints of chest/stomach pain since yesterday. She states that yesterday night she started feeling sharp chest pain that went away on its own. This evening when at dinner she started to feel nauseous and ended up having an episode of emesis after dinner. She says the pain doesn't radiate and she feels somewhat bloated. No new numbness or tingling. No new dizziness or lightheadedness. No new difficulty moving limbs. was concerned that she may have had another stroke because her 'eyelid looked different'. Allergies Allergy/AdvReac Type Severity Reaction Status Date / Time cisapride Allergy Intermediate Hives Verified 03/09/21 12:54 doxycycline Allergy Intermediate Rash Verified 03/09/21 12:54 gadobutrol [From Gadavist] Allergy Intermediate Hives Verified 03/09/21 12:54 lansoprazole Allergy Intermediate Hives Verified 03/09/21 12:54 Penicillins Allergy Mild Rash Verified 03/09/21 12:54 tetracycline Allergy Mild Rash Verified 03/09/21 12:54 Home Medications Medication Instructions Recorded Confirmed Type levothyroxine 137 mcg tablet 137 mcg PO QAM 05/04/18 03/24/21 History mirtazapine 30 mg tablet 30 mg PO HS 05/04/18 03/24/21 History aspirin 81 mg tablet,delayed 81 mg PO QAM #30 tab 03/02/19 03/24/21 Rx release (Ecotrin Low Strength) docusate sodium 100 mg capsule 100 mg PO BID 06/06/19 03/24/21 History (Colace) vortioxetine 20 mg tablet 20 mg PO HS 06/06/19 03/24/21 History (Trintellix) metformin 1,000 mg tablet 1,000 mg PO BID 10/01/19 03/24/21 History aripiprazole 5 mg tablet (Abilify) 5 mg PO HS 10/30/19 03/24/21 History rosuvastatin 5 mg tablet 5 mg PO PM 06/13/20 03/24/21 History ondansetron 4 mg disintegrating 4 mg PO Q8H PRN #6 tab 12/28/20 03/24/21 Rx tablet insulin glargine 100 unit/mL (3 20 unit SQ QAM #2 box 03/09/21 03/24/21 Rx mL) subcutaneous pen (Lantus Solostar U-100 Insulin) semaglutide (Ozempic) 0.25 mg SUBCUT .weekly 30 Days 03/09/21 03/24/21 Rx #1.5 ml Past Med/Surg History Medical History (Updated 03/25/21 @ 00:14 by Vikash Montalvo MD) Acute gastritis Altered mental status Altered mental status Anxiety Cervical dysplasia Chest pain Constipation Diabetes Diabetic femoral mononeuropathy Diabetic peripheral neuropathy DKA (diabetic ketoacidoses) Dyslipidemia Encounter for routine gynecological examination Fecal impaction GERD (gastroesophageal reflux disease) Gout History of anemia HNP (herniated nucleus pulposus), lumbar Hyperlipidemia Hypertension Hypoglycemia Hypokalemia Hypotension Hypothyroidism Intractable low back pain Lactic acidemia Lower extremity weakness Lumbar stenosis with neurogenic claudication Lumbosacral radiculopathy Major depressive disorder Major depressive disorder, recurrent episode, severe with anxious distress Polyneuropathy Postsurgical hypothyroidism Sensory ataxia Suicide attempt T2DM (type 2 diabetes mellitus) Tachycardia Vertigo Surgical History H/O cardiac catheterization H/O dilation and curettage H/O laparoscopy History of colposcopy with cervical biopsy History of dental surgery History of hysterectomy History of tonsillectomy History of total abdominal hysterectomy Previous back surgery Status post hysteroscopic ablation of endometrium Status post lumbar spine surgery for decompression of spinal cord Family History Mother , in her early 70s of some sort of cancer (patient not clear if it was breast cancer) Breast cancer Diabetes Grandmother Breast cancer Grandmother Breast cancer Unknown Colon cancer Father , Diet it age 78 of a myelodysplastic syndrome. He also had Iwtwltj-Ueubl-Kkfhq disease. Myelodysplasia (myelodysplastic syndrome) Nnrsijy-Ejlcq-Cuolc disease Heart disease Brother Wamiaky-Aestl-Tvmxv disease Other No pertinent family history in first degree relatives Social History Smoking Status: Never smoker Hx Alcohol Use: No Hx Substance Use: No Preferred Language: Micronesian Communication Ability: Effective City Constable Required: No Beliefs That Will Affect Care: None marital status: Life Partner Current Living Situation: Spouse current occupational status: disabled current occupation: Patient used to work at [employer] for 23 years and then [employer] How many Children do You have: 2 Other Information That Helps Us Care for You: No other: Retired on disability from her back 3 years ago Feels Safe at Home: Yes Assistive Devices: Walker Review of Systems Constitutional: no fever, no chills, no sweats and no fatigue Eyes: no blind spots and no discharge Ear, Nose, Mouth, Throat: no hearing loss and no nasal congestion Respiratory: no cough and no dyspnea Cardiovascular: + chest pain; no dyspnea on exertion and no edema Gastrointestinal: + nausea and + vomiting; no abdominal pain, no coffee ground emesis, no constipation, no diarrhea/loose stools, no blood in stools and no melena Genitourinary: no dysuria Musculoskeletal: no joint pain and no myalgia Neurologic: no tingling, no numbness and no headache(s) Endocrine: no fatigue Physical Exam Physical Exam: Constitutional: obese female laying in bed with some difficulty speaking clearly HEENT: lower lip quiver/tremor Eyes: EOMI, pupils equal and reactive bilaterally, no scleral icterus Cardiac: RRR, no murmurs, gallops or rubs. Normal S1, S2 Pulm: CTA BL, no wheezes, rhonchi, crackles or rubs, moving air well throughout both lungs Abd: soft, TTP over epigastrium and LUQ, distended, normal bowel sounds, no rebound or guarding Extremities: 2+ peripheral pulses, no edema Neuro: no focal deficits, moving all 4 limbs, A&Ox3, normal space of speech with some muffling/mumbling[normal s/p stroke per ] Results & Data Results & Data ([facility]) Vital Signs (Past 12 Hours) Vital Signs Temp Pulse Pulse Resp BP BP Pulse Ox 03/24/21 23:30 107 H 20 118/70 96 03/24/21 22:00 81 15 96 03/24/21 20:00 79 16 95 03/24/21 19:00 95 03/24/21 18:29 120 H 32 H 151/100 H 96 03/24/21 18:03 37.1 C 128 H 22 128/85 96 Laboratory Results Laboratory Results WBC 11.54 K/uL (4.8-10.8) H 03/24/21 18:28 RBC 4.79 M/uL (4.2-5.4) 03/24/21 18:28 Hgb 14.0 g/dL (12.0-16.0) 03/24/21 18:28 Hct 41.4 % (37-47) 03/24/21 18:28 MCV 86.4 fL (80-100) 03/24/21 18:28 MCH 29.2 pg (25-34) 03/24/21 18:28 MCHC 33.8 g/dL (32-36) 03/24/21 18:28 RDW Std Deviation 43.2 fL (36.4-46.3) 03/24/21 18:28 RDW Coeff of Maris 13.9 % (11.5-14.5) 03/24/21 18:28 Plt Count 312 K/uL (130-400) 03/24/21 18:28 MPV 10.4 fL (7.4-10.4) 03/24/21 18:28 Immature Gran % (Auto) 0.3 % 03/24/21 18:28 Neut % (Auto) 59.1 % 03/24/21 18:28 Lymph % (Auto) 32.5 % 03/24/21 18:28 [place] % (Auto) 6.3 % 03/24/21 18:28 Eos % (Auto) 1.6 % 03/24/21 18:28 Baso % (Auto) 0.2 % 03/24/21 18:28 Neut # (Auto) 6.82 K/uL (1.4-6.5) H 03/24/21 18:28 Lymph # (Auto) 3.75 K/uL (1.2-3.4) H 03/24/21 18:28 [place] # (Auto) 0.73 K/uL (0.11-0.59) H 03/24/21 18:28 Eos # (Auto) 0.18 K/uL (0-0.5) 03/24/21 18:28 Baso # (Auto) 0.02 K/uL (0-0.2) 03/24/21 18: Immature Gran # (Auto) 0.04 K/uL (0.00-0.02) H 03/24/21 18:28 APTT 21.8 Seconds (21.0-31.0) 03/24/21 18: PTT Ratio 0.8 03/24/21 18:28 Sodium 138 mmol/L (136-145) 03/24/21 18: Potassium 4.3 mmol/L (3.5-5.1) 03/24/21 18: Chloride 105 mmol/L (98-107) 03/24/21 18: Carbon Dioxide 25 mmol/L (21-32) 03/24/21 18:28 Anion Gap 8.0 (3-11) 03/24/21 18:28 BUN 18 mg/dl (7-18) 03/24/21 18:28 Creatinine 0.85 mg/dl (0.6-1.2) 03/24/21 18: Est Cr Clr Drug Dosing 65.7 ml/min 03/24/21 18:28 Est GFR ( Amer) 83.9 ml/min 03/24/21 18:28 Est GFR (Non-Af Amer) 72.4 ml/min 03/24/21 18:28 BUN/Creatinine Ratio 21.5 (10-20) H 03/24/21 18:28 Glucose 242 mg/dl (70-99) H 03/24/21 18:28 Calcium 10.3 mg/dl (8.5-10.1) H 03/24/21 18:28 Total Bilirubin 0.5 mg/dl (0.2-1) 03/24/21 18:28 AST 67 U/L (15-37) H 03/24/21 18:28 ALT 98 U/L (12-78) H 03/24/21 18:28 Alkaline Phosphatase 99 U/L (45-117) 03/24/21 18:28 Troponin I < 0.015 ng/ml (0-0.045) 03/24/21 18:28 Total Protein 8.4 gm/dl (6.4-8.2) H 03/24/21 18:28 Albumin 3.8 gm/dl (3.4-5.0) 03/24/21 18:28 Globulin 4.6 gm/dl (2.5-4.0) H 03/24/21 18:28 Albumin/Globulin Ratio 0.8 (0.9-2) L 03/24/21 18:28 Lipase 195 U/L (73-393) 03/24/21 18:28 COVID-19 Eval Order Covid19 at [facility] 03/24/21 23:30 SARS-CoV-2 (PCR) NEGATIVE (Negative) 03/24/21 23:30 Impressions Chest X-Ray 03/24/21 18:46 XR chest 1V portable HISTORY: 65 years-old Female Chest Pain acute atypical chest pain COMPARISON: Chest radiograph 12/27/2020 TECHNIQUE: Portable AP view of the chest FINDINGS: Cardiac silhouette is mildly enlarged. There is no pneumothorax, pleural effusion, airspace consolidation or overt pulmonary edema. Degenerative changes of the shoulders and spine. IMPRESSION: No acute process. ACT 112: Negative or not required by law. The above report was generated using voice recognition software. It may contain grammatical, syntax or spelling errors. Electronically signed by: Ino Flanagan M.D. 03/24/2021 7:18 PM Abdomen/Pelvis CT 03/24/21 19:50 CT angio chest PE protocol, CT abd pelvis IV con only HISTORY: 65 years-old Female with PE. Acute shortness of breath with upper abdominal pain TECHNIQUE: Multiple CTA images of the chest were obtained after the intravenous administration of 110 ml Optiray. Coronal and sagittal MIPS were obtained from the axial data set and were submitted for review. All measurements were obtained according to NASCET criteria. A dose lowering technique was utilized adhering to the principles of ALARA. COMPARISON: CT abdomen pelvis 02/13/2020, CTA chest 07/31/2016 FINDINGS: CTA: Mild cardiomegaly. No pericardial effusion. Mitral annular calcifications. Unchanged mild ectasia of the ascending thoracic aorta, 3.7 cm with mild atherosclerosis. Unremarkable pulmonary artery. No pulmonary emboli are identified. The segmental and subsegmental branches are suboptimally evaluated the level of the lung bases secondary to respiratory motion artifact. CT CHEST: No thyroid nodule. No adenopathy. No pneumothorax, pleural effusion, airspace consolidation or overt pulmonary edema. Mild bilateral groundglass densities with mosaic attenuation suggestive of air trapping with atelectasis. Mild bronchial wall thickening. There are no suspicious pulmonary nodules or masses. 4 mm solid nodule of the left lung apex on image 191 appears stable to slightly increased in size from the 2016 study which is likely benign. Unremarkable soft tissues. There is no acute fracture. Degenerative changes of the shoulders and spine. CT ABDOMEN/PELVIS: Indeterminate 7 mm hypodense splenic lesion is unchanged and likely benign. Moderate generalized pancreatic atrophy with coarse calcifications suggestive of chronic pancreatitis. Mild gallbladder distention without wall thickening or pericholecystic edema identified. Unremarkable adrenal glands and liver. Patency of the hepatic and portal veins. No biliary ductal dilation identified. 1.5 cm cyst of the inferior pole left kidney. Mild nonspecific bilateral perinephric stranding without hydronephrosis. Unremarkable urinary bladder. Hysterectomy. No adnexal mass lesions. Atherosclerosis of the aorta without aneurysm. No adenopathy. No bowel obstruction or bowel wall thickening. Colonic diverticulosis. Normal appendix. No ascites or mesenteric inflammation. Prior laminectomy with posterior interbody gabriela and screw fusion and discectomy at L4-L5. The hardware appears intact. The left L4 pedicle screw extends along the left lateral margin of the vertebral body. Probable vertebral body hemangioma at L3. IMPRESSION: 1. No pulmonary emboli. 2. Mild bilateral atelectasis with air trapping. 3. No bowel obstruction or bowel wall thickening. Normal appendix. 4. Colonic diverticulosis. 5. Additional findings as above. ACT 112: Negative or not required by law. The above report was generated using voice recognition software. It may contain grammatical, syntax or spelling errors. Electronically signed by: Ino Flanagan M.D. 03/24/2021 9:10 PM Chest CTA 03/24/21 19:50 CT angio chest PE protocol, CT abd pelvis IV con only HISTORY: 65 years-old Female with PE. Acute shortness of breath with upper abdominal pain TECHNIQUE: Multiple CTA images of the chest were obtained after the intravenous administration of 110 ml Optiray. Coronal and sagittal MIPS were obtained from the axial data set and were submitted for review. All measurements were obtained according to NASCET criteria. A dose lowering technique was utilized adhering to the principles of ALARA. COMPARISON: CT abdomen pelvis 02/13/2020, CTA chest 07/31/2016 FINDINGS: CTA: Mild cardiomegaly. No pericardial effusion. Mitral annular calcifications. Unchanged mild ectasia of the ascending thoracic aorta, 3.7 cm with mild atherosclerosis. Unremarkable pulmonary artery. No pulmonary emboli are identified. The segmental and subsegmental branches are suboptimally evaluated the level of the lung bases secondary to respiratory motion artifact. CT CHEST: No thyroid nodule. No adenopathy. No pneumothorax, pleural effusion, airspace consolidation or overt pulmonary edema. Mild bilateral groundglass densities with mosaic attenuation suggestive of air trapping with atelectasis. Mild bronchial wall thickening. There are no suspicious pulmonary nodules or masses. 4 mm solid nodule of the left lung apex on image 191 appears stable to slightly increased in size from the 2016 study which is likely benign. Unremarkable soft tissues. There is no acute fracture. Degenerative changes of the shoulders and spine. CT ABDOMEN/PELVIS: Indeterminate 7 mm hypodense splenic lesion is unchanged and likely benign. Moderate generalized pancreatic atrophy with coarse calcifications suggestive of chronic pancreatitis. Mild gallbladder distention without wall thickening or pericholecystic edema identified. Unremarkable adrenal glands and liver. Patency of the hepatic and portal veins. No biliary ductal dilation identified. 1.5 cm cyst of the inferior pole left kidney. Mild nonspecific bilateral perinephric stranding without hydronephrosis. Unremarkable urinary bladder. Hysterectomy. No adnexal mass lesions. Atherosclerosis of the aorta without aneu rysm. No adenopathy. No bowel obstruction or bowel wall thickening. Colonic diverticulosis. Normal appendix. No ascites or mesenteric inflammation. Prior laminectomy with posterior interbody gabriela and screw fusion and discectomy at L4-L5. The hardware appears intact. The left L4 pedicle screw extends along the left lateral margin of the vertebral body. Probable vertebral body hemangioma at L3. IMPRESSION: 1. No pulmonary emboli. 2. Mild bilateral atelectasis with air trapping. 3. No bowel obstruction or bowel wall thickening. Normal appendix. 4. Colonic diverticulosis. 5. Additional findings as above. ACT 112: Negative or not required by law. The above report was generated using voice recognition software. It may contain grammatical, syntax or spelling errors. Electronically signed by: Ino Flanagan M.D. 03/24/2021 9:10 PM Supervising Physician Co-Signing Physician Notes Attending addendum: I have physically seen this patient, have supervised the medical residents activities, and agree with the H&P unless as otherwise noted. Assessment and Plan: Chest pain- The patient will be admitted to telemetry for serial cardiac enzymes, serial EKG's, cardiac rhythm monitoring and a 2-D echocardiogram with Dopplers. CTA chest negative for PE Initial troponin negative EKG shows sinus tachycardia without ST-T changes Abdominal pain- Differential includes diabetic gastroparesis, chronic pancreatitis, gastritis Famotidine 20 mg IV every 12 hours Trial of promotility agent if symptoms are persistent Remaining orders and notations as noted Resident Activity Tracking Resident Involvement: Resident Care Provided Care Provided: Adult Hospital Medicine (1) Nausea & vomiting Vomiting Intractability: non-intractable Vomiting type: unspecified Qualified Code(s): R11.2 - Nausea with vomiting, unspecified (2) Abdominal pain Abdominal location: epigastric Qualified Code(s): R10.13 - Epigastric pain (3) Chest pain Chest pain type: unspecified Qualified Code(s): R07.9 - Chest pain, unspecified
[2021-03-25] MEDS ORDERED: ONDANSETRON INJ 2 MG/ML 2 ML VIAL IV PRN (03:55)
[2021-03-25] MEDS ORDERED: POLYETHYLENE (MIRALAX) 17 GM PACK PO PRN (03:55)
[2021-03-25] MEDS ORDERED: NITROGLYCERIN SL 0.4 MG/TAB TAB SL PRN (03:55)
[2021-03-25] MEDS ORDERED: ACETAMINOPHEN 325 MG TAB PO PRN (03:55)
[2021-03-25] MEDS ORDERED: MoRPHine SULFATE 2 MG/ML CARP IV PRN (03:55)
[2021-03-25] MEDS ORDERED: ALUMINUM/MAGNESIUM SUSP 30 ML UDC PO PRN (03:55)
[2021-03-25] MEDS ORDERED: GLUCAGON FOR INJ 1 MG VIAL IM PRN (04:15)
[2021-03-25] MEDS ORDERED: GLUCOSE 40% GEL 15 GM TUBE PO PRN (04:15)
[2021-03-25] MEDS ORDERED: CARBOHYDRATES FOR HYPOGLYCEMIA PO PRN (04:15)
[2021-03-25] MEDS ORDERED: GLUCOSE 10 TABS/TUBE PO PRN (04:15)
[2021-03-25] MEDS ORDERED: DEXTROSE 50% 50 ML SYRINGE IV PRN (04:15)
[2021-03-25] MEDS: LEVOTHYROXINE SODIUM 137 MCG TABLET PO SCH (06:31)
--- NOTE | 2021-03-25 07:32 | CT Scan Report ---
HEAD CT NONCONTRAST CT DOSE: 614.27 mGy.cm HISTORY: Stroke symptoms. TECHNIQUE: Multiaxial CT images of the head were performed without the use of intravenous contrast. A utomated exposure control was utilized for this study. A dose lowering technique was utilized adheri ng to the principles of ALARA. Comparison: Head CT 06/06/2019. Findings: The paranasal sinuses and mastoid air cells are clear. The calvarium and skull base are int act. There is no mass, hematoma, midline shift, acute infarct. White matter hypodensity is nonspecifi c but suggestive of microvascular ischemic change. The ventricles and sulci demonstrate mild age-rela eliel involutional changes. Old small lacunar infarcts within the basal ganglia, unchanged. Impression: No acute intracranial abnormality. Atrophy and microvascular ischemic changes. ACT 112: Negative or not required by law. Electronically signed by: Marcus Stephenson M.D. 03/25/2021 7:31 AM
[2021-03-25] MEDS ORDERED: IBUPROFEN 600 MG TAB PO PRN (08:10)
--- NOTE | 2021-03-25 08:38 | Hospitalist Progress Note ---
Date of Service March 25, 2021 Assessment & Plan (1) Abdominal pain: Plan: Kourtney Trinidad is a 65-year-old female with PMH of stroke, diabetes mellitus type 2, hypothyroidism, hyperlipidemia who was admitted due to complaint of sharp chest pain. Chest/Upper Abd Pain - Troponin negative x2 - EKG w/o ST segment changes, sinus tach - CT Chest negative for PE - suspect more gastric etiology than cardiac -CT A/p: Indeterminate 7 mm hypodense splenic lesion is unchanged and likely benign. Moderate generalized pancreatic atrophy with coarse calcifications suggestive of chronic pancreatitis - Per history relayed by fred, she started on Ozempic about 2 weeks ago and noticed her upper GI/chest discomfort around that time - Abdominal pain and n/v are well established side effects of Ozempic, so this is likely the cause of her current issues - Could have some contribution from chronic pancreatitis and/or diabetic gastroparesis but acute nature and timing in relation to Ozempic makes this the most likely cause - Continue Famotidine 20mg IV BID - Will make Zofran 4mg IV scheduled three times daily for now while she remains nauseous with meals--normal QTc on EKG - Will add Carafate 1mg QID as well Weakness -Patient has a history of stroke in the past -Currently reporting that she has been weaker, especially in her legs--she feels she'd benefit from inpatient rehabilitation -No reported falls -PT/OT consulted CAD - cont asa, statin DM2 - cont insulin glargine 20u AM - SSI - hold metformin Hypothyroidism - cont levothyroxine Major Depression - cont abilify, mirtazipine, trintillex DVT ppx: lovenox FEN/GI: heart healthy, DM2 diet Code status: Full code Dispo: med/tele (2) Chest pain: (3) Nausea & vomiting: (4) Diabetic peripheral neuropathy: (5) Cerebrovascular disease: (6) Postsurgical hypothyroidism: (7) Hyperlipidemia: (8) GERD (gastroesophageal reflux disease): Admission and Anticipated Discharge Date Admission Date: March 25, 2021 Supervising Physician Co-Signing Physician Notes I personally examined the patient and verified all garcia points of history and exam, discussed case, and agree with decision making with Dr Shane. Stomach generally feeling better. May be not great yet though. Has already been in touch with outpatient doctors as far as switching away from Ozempic. Notes that she is fairly weak, and thinks she would do well for inpatient rehab. Asks that we try to help facilitate this. Vitals noted, in general she is awake and alert pleasant no distress. HEENT normocephalic atraumatic mucous membranes moist. Breathing unlabored no accessory muscle use good effort. Skin shows no rashes no pallor or icterus. Stomach paindoes appear to be most likely Ozempic side effect. Does not at all appear cardiac in nature. Supportive care/as needed for pain and nausea directed at the stomach. Advance diet/eat as tolerated. Weakness/gait instability related to cerebrovascular disease and old strokedis cussed with case management, PT, OT. Goal is to try to get her to rehab. Otherwise as above. Subjective Patient seen at bedside this morning. Reported she did have continued upper abdominal/mid-chest discomfort overnight as well as some nausea, but no vomiting. She denies radiation of pain to arm or neck. Upon discussion, she reports that about 2 weeks ago she was started on Ozempic for her diabetes by her cotton chopper. She says these current symptoms started around that time and that every Sunday, when she gets these shots, she feels significantly worse in terms of abdominal/chest discomfort as well as nausea and vomiting. Denies fever, chills, shortness of breath, dyspnea on exertion, or any other systemic signs and symptoms. Review of Systems Review of Systems: All systems reviewed & are unremarkable except as noted in Subjective Physical Exam Physical Exam: General: Obese, NAD. CV: RRR, -mgr Resp: CTAB, -wrr, no increased work of breathing GI: TTP along upper abomen, nontender lower abdomen, nondistended, BS+x4 Skin: No rashes, no lesions. Dry and intact. Results & Data Results & Data ([facility]) Vital Signs (Past 12 Hours) Vital Signs Temp Pulse Pulse Resp BP BP Pulse Ox 03/25/21 07:56 96 H 17 152/77 H 97 03/25/21 04:15 36.5 C 106 H 20 147/85 H 98 03/25/21 03:55 36.5 C 106 H 20 147/85 H 98 03/25/21 03:09 93 H 03/25/21 01:30 98 H 16 146/40 H 95 03/25/21 01:00 95 H 16 130/81 96 03/25/21 00:30 98 H 19 116/75 95 03/24/21 23:30 107 H 20 118/70 96 03/24/21 22:00 81 15 96 Resident Activity Tracking Resident Involvement: Resident Care Provided Care Provided: Adult Hospital Medicine (1) Nausea & vomiting Vomiting Intractability: non-intractable Vomiting type: unspecified Qualified Code(s): R11.2 - Nausea with vomiting, unspecified (2) Abdominal pain Abdominal location: epigastric Qualified Code(s): R10.13 - Epigastric pain (3) Chest pain Chest pain type: unspecified Qualified Code(s): R07.9 - Chest pain, unspecified
[2021-03-25] MEDS: INSULIN ASPART 100 UNITS/ML 3 ML PEN SC SCH ×4 (09:57→22:10)
[2021-03-25] MEDS: ENOXAPARIN INJ 40 MG/0.4 ML SYR SQ SCH (09:58)
[2021-03-25] MEDS: DOCUSATE SODIUM 100 MG CAP PO SCH ×2 (09:58→21:16)
[2021-03-25] MEDS: ASPIRIN 81 MG ECTAB PO SCH (09:58)
[2021-03-25] MEDS: INSULIN GLARGINE SOLOSTAR 100 UNITS/ML 3 ML PEN SQ SCH (09:58)
[2021-03-25] MEDS: FAMOTIDINE 20 MG in SYRINGE 3 ML IV SCH ×2 (10:48→21:23)
--- NOTE | 2021-03-25 13:23 | Electrocardiogram Report ---
Test Reason : Blood Pressure : / mmHG Vent. Rate : 127 BPM Atrial Rate : 127 BPM P-R Int : 154 ms QRS Dur : 068 ms QT Int : 294 ms P-R-T Axes : 028 007 039 degrees QTc Int : 427 ms Poor data quality, interpretation may be adversely affected Sinus tachycardia Possible Left atrial enlargement Possible Inferior infarct , age undetermined Poor R wave progression, consider anterior [place] vs. lead placement vs. LVH Abnormal ECG When compared with ECG of 20-FEB-2021 21:57, No significant change was found Confirmed by Silverio Jiang ([id number]) on 03/25/2021 1:23:34 PM Referred By: REFERRED SELF Confirmed By:Silverio Jiang
--- NOTE | 2021-03-25 18:01 | Billing Data ---
Date of Service March 25, 2021 Coding Level of Care Code 48070 Subseq Obs Care Lvl 2
[2021-03-25] MEDS: SUCRALFATE 1 GM/10 ML UDC PO SCH ×2 (18:18→21:18)
[2021-03-25] MEDS: ONDANSETRON INJ 2 MG/ML 2 ML VIAL IV SCH (18:19)
[2021-03-25] MEDS ORDERED: ARIPiprazole 5 MG TAB PO SCH (21:00)
[2021-03-25] MEDS ORDERED: ROSUVASTATIN CALCIUM 5 MG TAB PO SCH (21:00)
[2021-03-25] MEDS ORDERED: MIRTAZAPINE TAB 15 MG TAB PO SCH (21:00)
--- NOTE | 2021-03-26 00:55 | Billing Data ---
Date of Service March 26, 2021 Coding Level of Care Code INT OBSERVATION CARE 71M LVL 3
[2021-03-26] MEDS: LEVOTHYROXINE SODIUM 137 MCG TABLET PO SCH (06:12)
--- NOTE | 2021-03-26 06:48 | Discharge Summary ---
Date of Service March 26, 2021 Admission HPI Per Admitting Provider 65 yo F with hx stroke, DM2, hypothyroidism, HLD in ER for complaints of chest/stomach pain since yesterday. She states that yesterday night she started feeling sharp chest pain that went away on its own. This evening when at dinner she started to feel nauseous and ended up having an episode of emesis after dinner. She says the pain doesn't radiate and she feels somewhat bloated. No new numbness or tingling. No new dizziness or lightheadedness. No new difficulty moving limbs. was concerned that she may have had another stroke because her 'eyelid looked different'. Admission Exam Per Admitting Provider Constitutional: obese female laying in bed with some difficulty speaking clearly HEENT: lower lip quiver/tremor Eyes: EOMI, pupils equal and reactive bilaterally, no scleral icterus Cardiac: RRR, no murmurs, gallops or rubs. Normal S1, S2 Pulm: CTA BL, no wheezes, rhonchi, crackles or rubs, moving air well throughout both lungs Abd: soft, TTP over epigastrium and LUQ, distended, normal bowel sounds, no rebound or guarding Extremities: 2+ peripheral pulses, no edema Neuro: no focal deficits, moving all 4 limbs, A&Ox3, normal space of speech with some muffling/mumbling[normal s/p stroke per ] Principal Diagnosis ozempic related GI distress, weakness requiring rehab secondary to cerebrovascular disease and deconditioning Discharge Exam General: Grossly A&O. NAD. Cooperative. HEENT: Atraumatic, normocephalic. EOMI Pulm: CTAB. -wheezes, -rales, -rhonchi. Symmetrical chest rise. No respiratory distress. Cardiac: TRR, -mrg. Trace LE edema. Abdominal: Mild epigastric ttp. nondistended, soft. Msk: Mild chest wall ttp, not same pains she had before. Discharge Data Allergies Allergy/AdvReac Type Severity Reaction Status Date / Time cisapride Allergy Intermediate Hives Verified 03/09/21 12:54 doxycycline Allergy Intermediate Rash Verified 03/09/21 12:54 gadobutrol [From Gadavist] Allergy Intermediate Hives Verified 03/09/21 12:54 lansoprazole Allergy Intermediate Hives Verified 03/09/21 12:54 Penicillins Allergy Mild Rash Verified 03/09/21 12:54 tetracycline Allergy Mild Rash Verified 03/09/21 12:54 Consultations 03/24/21 23:31 ED Decision to Admit Stat Ordered Studies Labs on 03/26/21, day of dispo: wbc 11.54H->8.37 resolved. Hb 14->12.9 ok. K 4.3- 3.5. Cr 0.55. Mild transaminitis resolved. Chest X-Ray 03/24/21 18:46 IMPRESSION: No acute process. CT angio chest PE protocol, CT abd pelvis IV con only IMPRESSION: 1. No pulmonary emboli. 2. Mild bilateral atelectasis with air trapping. 3. No bowel obstruction or bowel wall thickening. Normal appendix. 4. Colonic diverticulosis. 5. Additional findings in full report. Head CT 03/24/21 23:18 Impression: No acute intracranial abnormality. Atrophy and microvascular ischemic changes. Hospital Course (1) Abdominal pain: Kourtney Trinidad is a 65-year-old female with PMH of stroke, diabetes mellitus type 2, hypothyroidism, hyperlipidemia who was admitted due to complaint of sharp chest pain/upper abd pain x 2 wks. Follow up w/ PCP in 1 wk. Chest/Upper Abd Pain - Most likely GI-related, i.e. recently started Ozempic use 2 wks ago. Cardiac etiology less likely. - Troponin negative x2. EKG w/o ST segment changes, sinus tach. CT Chest negative for PE - suspect more gastric etiology than cardiac -CT A/p: Indeterminate 7 mm hypodense splenic lesion is unchanged and likely benign. Moderate generalized pancreatic atrophy with coarse calcifications suggestive of chronic pancreatitis - Abdominal pain and n/v are well established side effects of Ozempic, so this is likely the cause of her current issues - Could have some contribution from chronic pancreatitis and/or diabetic gastroparesis but acute nature and timing in relation to Ozempic makes this the most likely cause - Short course of twice daily Pepcid, 4 times daily Carafatestable for rehab. Weakness -Patient has a history of stroke in the past -Currently reporting that she has been weaker, especially in her legs--she feels she'd benefit from inpatient rehabilitation -No reported falls -PT/OT consulted, patient will be going to SNF CAD - cont asa, statin DM2 - continue home regimen Hypothyroidism - cont levothyroxine home dose - checked TSH because she had fairly persistent tachycardia to 120s this admission, w/ resolution on last day - TSH lower limit of normal, .307. PCP to follow up. Consider checking TSH sooner, e.g. in 3 months instead of 6. - TSH may also be affected by acute illness Major Depression - cont abilify, mirtazipine, trintillex (2) Chest pain: (3) Nausea & vomiting: (4) Diabetic peripheral neuropathy: (5) Cerebrovascular disease: (6) Postsurgical hypothyroidism: (7) Hyperlipidemia: (8) GERD (gastroesophageal reflux disease): Total Time Total Time Spent Total Time Spent (In Minutes): <30 Discharge Plan Discharge Items Patient Disposition: Transfer Inpatient Rehab Fac Reason For Visit: CHEST PAIN Discharge Diagnosis: ozempic induced GI distress Activity: Resume your previous activity Non-emergency contact: Primary Care Provider and Specialist Call non-emergency contact if: you have any medication questions and your symptoms worsen Follow-up/Referrals: Andry Kerr MD [Primary Care Provider] - Diet: Carb Consistent or DM2 Addtl Attending Provider Instructions: GI distress -presented with epigastric pain - after review appears to correlate with initiation of ozempic - this has been stopped -short term treating with BID pepcid and QID carafate to alleviate symptoms - please stop these once she is feeling totally better/once med ADR has worn off weakness -stroke several years ago, but noted functional decline - desired inpatient rehab. functional status in hospital/PT/OT evals all support her supposition that she would benefit from acute rehab -PT/OT eval and treat at rehab DM2 -A1c 03/09/21 was 8.5 -ozempic stopped due to ADR // pt has been in contact with outpatient physicians for next plan long-term -in the short term sugars have shown overall good control w DM2 diet, 20 units lantus, novolog AC with a carb ratio of 1:12 (and with metformin on hold temporarily) -would either resume metformin and continue lantus at rehab and follow sugars, or continue current basal/bolus regimen with metformin on hold -dietary education in regards to simple carbohydrates would likely be helpful as well to affect better terminal clerk control, possibly with less medication Pending Studies at Discharge: No Stand-Alone Forms: My [facility] Skilled Items Patient informed of condition?: Yes DNR: No Discharge Level of Care: Acute rehab Communicable Disease: No Discharge Prognosis: Improving Lines: None Urinary Catheter: No Medications and DC Order Prescriptions: New famotidine [Pepcid] 20 mg tablet 20 mg PO BID Qty: 10 RF: 0 sucralfate [Carafate] 100 mg/mL suspension 1 g PO ACHS Qty: 400 RF: 0 Continued Lantus Solostar U-100 Insulin 100 unit/mL (3 mL) insulin pen 20 unit SQ QAM Qty: 2 RF: 3 aspirin [Ecotrin Low Strength] 81 mg Tablet,Delayed Release (Dr/Ec) 81 mg PO QAM Qty: 30 RF: 0 docusate sodium [Colace] 100 mg Capsule 100 mg PO BID RF: 0 Trintellix 20 mg tablet 20 mg PO HS RF: 0 metformin 1,000 mg tablet 1,000 mg PO BID RF: 0 rosuvastatin 5 mg tablet 5 mg PO PM RF: 0 levothyroxine 137 mcg tablet 137 mcg PO QAM RF: 0 mirtazapine 30 mg tablet 30 mg PO HS RF: 0 aripiprazole [Abilify] 5 mg tablet 5 mg PO HS RF: 0 ondansetron 4 mg tablet,disintegrating 4 mg PO Q8H PRN (Reason: nausea and vomiting) Qty: 6 RF: 0 Discontinued Ozempic 0.25 mg or 0.5 mg(2 mg/1.5 mL) pen injector 0.25 mg subcut .weekly 30 Days Qty: 1.5 RF: 0 Discharge Orders: Discharge Order (Routine); Ordered 03/26/21 Ordered By: Nik Hyatt Admission Data Admit Date/Time: 03/25/21 00:03 Attending Provider: Nik Hyatt Admit Provider: Niru Thayer Primary Care Provider: Andry Kerr Other Providers: Rajat Hernandez ; [facility] Other Interventions: Discharge Summary Assessment (RN) Last Done: 03/26/21 13:37 Supervising Physician Co-Signing Physician Notes I personally examined the patient and verified all garcia points of history and exam, discussed case, and agree with decision making with Dr Rashid Stomach feeling better. Eating okay. Approved/accepted for rehab today.. Vitals noted, in general she is awake and alert pleasant no distress. HEENT normocephalic atraumatic mucous membranes moist. Breathing unlabored no accessory muscle use good effort. Skin shows no rashes no pallor or icterus. Stomach paindoes appear to be most likely Ozempic side effect. Does not at all appear cardiac in nature. Short course of twice daily Pepcid, 4 times daily Carafatestable for rehab. Weakness/gait instability related to cerebrovascular disease and old strokePT/OT eval and treat ongoing at rehab, stable for transfer today. Otherwise as above.
[2021-03-26 08:47] LABS: Basophils # (auto) 0.01 K/uL (0-0.2); Basophils % (auto) 0.1 %; Eosinophils # (auto) 0.23 K/uL (0-0.5); Eosinophils % (auto) 2.7 %; Hematocrit (blood only) 38.5 % (37-47); Hemoglobin 12.9 g/dL (12.0-16.0); Immature Granulocytes # (auto) 0.02 K/uL (0.00-0.02); Immature Granulocytes % (auto) 0.2 %; Lymphocytes # (auto) 3.61 K/uL (1.2-3.4); Lymphocytes % (auto) 43.1 %; Mean Corpuscular Hgb Conc 33.5 g/dL (32-36); Mean Corpuscular Volume 86.5 fL (80-100); Monocytes # (auto) 0.56 K/uL (0.11-0.59); Monocytes % (auto) 6.7 %; Neutrophils # (auto) 3.94 K/uL (1.4-6.5); Neutrophils % (auto) 47.2 %; Platelet Count 259 K/uL (130-400); RDW Coefficient of Variation 14.1 % (11.5-14.5); RDW Standard Deviation 44.1 fL (36.4-46.3); Red Blood Count 4.45 M/uL (4.2-5.4); White Blood Count 8.37 K/uL (4.8-10.8)
[2021-03-26 09:18] LABS: Albumin Globulin Ratio 0.9 (0.9-2); Albumin Level 3.4 gm/dl (3.4-5.0); BUN Creatinine Ratio 19.6 (10-20); Bilirubin,Total 0.3 mg/dl (0.2-1); Calcium 9.6 mg/dl (8.5-10.1); Creatinine Clr Calc Pharmacy 103.4 ml/min; Est GFR (African American) 114.9 ml/min; Est GFR (Non-African American) 99.1 ml/min; Potassium 3.5 mmol/L (3.5-5.1); Total Protein 7.4 gm/dl (6.4-8.2)
[2021-03-26] MEDS: SUCRALFATE 1 GM/10 ML UDC PO SCH (09:28)
[2021-03-26] MEDS: ONDANSETRON INJ 2 MG/ML 2 ML VIAL IV SCH (09:28)
[2021-03-26] MEDS: ASPIRIN 81 MG ECTAB PO SCH (09:28)
[2021-03-26] MEDS: ENOXAPARIN INJ 40 MG/0.4 ML SYR SQ SCH (09:28)
[2021-03-26] MEDS: INSULIN GLARGINE SOLOSTAR 100 UNITS/ML 3 ML PEN SQ SCH (09:28)
[2021-03-26] MEDS: INSULIN ASPART 100 UNITS/ML 3 ML PEN SC SCH ×2 (09:29→12:34)
[2021-03-26] MEDS: DOCUSATE SODIUM 100 MG CAP PO SCH (09:32)
[2021-03-26] MEDS: FAMOTIDINE 20 MG in SYRINGE 3 ML IV SCH (10:51)
--- NOTE | 2021-03-26 18:58 | Billing Data ---
Date of Service March 26, 2021 Coding Level of Care Code 15866 OBS Care - Discharge
--- NOTE | 2021-03-28 09:20 | Electrocardiogram Report ---
Test Reason : Blood Pressure : / mmHG Vent. Rate : 078 BPM Atrial Rate : 078 BPM P-R Int : 162 ms QRS Dur : 082 ms QT Int : 368 ms P-R-T Axes : 032 005 021 degrees QTc Int : 419 ms Normal sinus rhythm Possible Inferior infarct (cited on or before 24-MAR-2021) Abnormal ECG When compared with ECG of 24-MAR-2021 18:18, Vent. rate has decreased BY 49 BPM Confirmed by Dusty Muniz ([id number]) on 03/28/2021 9:20:05 AM Referred By: REFERRED SELF Confirmed By:Dusty Muniz
== END 2021-03-26 14:19 ==
LOC: 2W 17:54 → ED 17:54 → SUATTDRO 03-25 00:03 → 2W 03-25 01:55

== ENCOUNTER 2021-08-16 16:43 | Observation (INO) ==
[2021-08-16] MEDS ORDERED: SODIUM CHLORIDE 0.9% 1000ML 1,000 ML IV ONE ×2 (16:56→17:52)
[2021-08-16] MEDS ORDERED: ONDANSETRON INJ 2 MG/ML 2 ML VIAL IV STA (17:03)
[2021-08-16] MEDS ORDERED: CEFEPIME 2,000 MG/20 ML VIAL IV STA (17:09)
--- NOTE | 2021-08-16 17:09 | Emergency Department Note ---
Impression & Plan Weakness, Tachycardia, Fever, COVID-19 ED Provider Note NAME: JONATHAN TOVAR AGE: 66 SEX: F : 1955 ARRIVES VIA: Walk-In INFORMANT: [Patient] ED PROVIDER(S): [Bright Gutierrez MD] CHIEF COMPLAINT: Hyperglycemia HISTORY OF PRESENT ILLNESS: The patient is a 66-year-old female who states that she felt poorly yesterday. She had a fever and a bit of a cough. Today, she did not feel well with similar complaints. At 3 PM, about 2 hours ago, she began vomiting. Her sugar was high and then low. She is having a hard time keeping her sugar regulated. She feels nauseated. She feels weak. She seems a bit shaky. No chest pain. No abdominal pain. No urinary complaints. No sick contacts. The patient is vaccinated for COVID-19 x2. She has had an influenza v accination. Of note, last BSG was about 140. REVIEW OF SYSTEMS: See HPI for pertinent positives and negatives. A total of ten systems were reviewed and were otherwise negative. PMHx/PSHx: See Below SOCIAL HISTORY: See Below. PHYSICAL EXAM: GENERAL: Patient is in no acute distress. HEENT: No acute trauma, normocephalic atraumatic, mucous membranes moist, no nasal congestion, no scleral icterus. NECK: No stridor, no adenopathy, no meningismus, trachea is midline. LUNGS: Clear to auscultation bilaterally, no wheeze, no rhonchi, breath sounds equal. HEART: Tachycardic, regular rhythm, no murmurs. ABDOMEN: Soft, nontender, bowel sounds positive, no hernias, no peritonitis. EXTREMITIES: No cyanosis or edema, full range of motion of all the joints without pain or difficulty, no signs for acute trauma. NEUROLOGIC: Oriented x 3, no acute motor or sensory deficits, no focal weakness. Generalized extremity shaking noted. SKIN: No rash, no jaundice, no diaphoresis. DIFFERENTIAL DIAGNOSIS: Infection, sepsis, UTI, COVID-19, influenza, pneumonia, dehydration, metabolic abnormality, hypo/hyperglycemia, electrolyte disturbance, anemia, hypoxia, cardiac sources, intracerebral event, toxicologic issues, stroke, TIA, as well as other pathologies. EMERGENCY DEPARTMENT COURSE/PROCEDURES: ECG: Indication was weakness. The ECG shows a sinus tachycardia with a rate of 135. There is some nonspecific ST changes diffusely. There is some baseline artifact. No PVCs, no ST elevation. The QTC is 429. Continuous Cardiac Monitoring: An order was placed for continuous cardiac monitoring. The monitor shows a rate of 142 with sinus tachycardia. MEDICAL DECISION MAKING: There is no leukocytosis or concerning anemia. There is a normal platelet count. No significant electrolyte abnormality or kidney failure. Lactic acid level was elevated at over 3, consistent with dehydration and/or infection. No worrisome liver enzyme elevation. ECG showed a sinus tachycardia, no obvious acute ischemia. Cardiac enzyme testing x1 was not consistent with acute cardiac injury. Urinalysis showed some dehydration, no infection. COVID testing returned positive. Influenza and RSV testing returned negative. Chest x-ray was clear without pneumonia. On exam, the patient was tachycardic and a bit shaky. No focal neurologic deficits. The patient received IV saline, 2 L. She was given IV Zofran, she received IV cefepime as empiric antibiotic coverage. The patient's heart has improved. The heart rate is now about 110. She does feel better than when she first arrived. She still feels weak though. The patient is unable to care for herself in her current condition. I do think she is dehydrated. The COVID-19 infection has led to dehydration, fever, shakes and I suspect some of the tachycardia. Hospitalization is warranted. I did speak with case management, the on-call hospitalist was consulted. The patient is aware of all her findings. Past Med/Surg History Medical History Abdominal pain Acute gastritis Altered mental status Anxiety Cervical dysplasia Chest pain Chest pain Constipation Diabetes Dizziness Dyslipidemia Fecal impaction GERD (gastroesophageal reflux disease) Gout H/O: stroke History of anemia HNP (herniated nucleus pulposus), lumbar Hyperglycemia Hyperglycemia Hyperlipidemia Hypertension Hypoglycemia Hypokalemia Hypotension Intractable low back pain Lactic acidemia Lower extremity weakness Lumbar stenosis with neurogenic claudication Major depressive disorder, recurrent episode, severe with anxious distress Nausea & vomiting Neurological deficit present Postsurgical hypothyroidism Suicide attempt T2DM (type 2 diabetes mellitus) Tachycardia Vertigo Wound, open, ear, external with complication Surgical History H/O cardiac catheterization H/O dilation and curettage H/O laparoscopy History of colposcopy with cervical biopsy History of dental surgery History of hysterectomy History of tonsillectomy History of total abdominal hysterectomy Previous back surgery Status post hysteroscopic ablation of endometrium Status post lumbar spine surgery for decompression of spinal cord Family History Mother , in her early 70s of some sort of cancer (patient not clear if it was breast cancer) Breast cancer Diabetes Grandmother Breast cancer Grandmother Breast cancer Unknown Colon cancer Father , Diet it age 78 of a myelodysplastic syndrome. He also had Fszskqk-Wdzsa-Nzfsq disease. Myelodysplasia (myelodysplastic syndrome) Fktmhce-Jrzkl-Qprke disease Heart disease Brother Mnqopqn-Bemmq-Oqfac disease Other No pertinent family history in first degree relatives Social History Smoking Status: Never smoker Hx Alcohol Use: No Hx Substance Use: No Preferred Language: Polish Communication Ability: Effective Associate Team Physician Required: No Beliefs That Will Affect Care: None marital status: Life Partner Current Living Situation: Spouse current occupational status: disabled current occupation: Patient used to work at [employer] for 23 years and then [employer] How many Children do You have: 2 other: Retired on disability from her back 3 years ago Feels Safe at Home: Yes Assistive Devices: Walker Allergies Allergies Allergy/AdvReac Type Severity Reaction Status Date / Time cisapride Allergy Intermediate Hives Verified 08/16/21 18:46 doxycycline Allergy Intermediate Rash Verified 08/16/21 18:46 gadobutrol [From Gadavist] Allergy Intermediate Hives Verified 08/16/21 18:46 lansoprazole Allergy Intermediate Hives Verified 08/16/21 18:46 Penicillins Allergy Mild Rash Verified 08/16/21 18:46 tetracycline Allergy Mild Rash Verified 08/16/21 18:46 Home Meds Home Medications Medication Instructions Recorded Confirmed levothyroxine 137 mcg tablet 137 mcg PO QAM 05/04/18 08/16/21 mirtazapine 30 mg tablet 30 mg PO HS 05/04/18 08/16/21 docusate sodium 100 mg capsule 100 mg PO BID 06/06/19 08/16/21 (Colace) vortioxetine 20 mg tablet 20 mg PO HS 06/06/19 08/16/21 (Trintellix) metformin 1,000 mg tablet 1,000 mg PO BID 10/01/19 08/16/21 aripiprazole 5 mg tablet (Abilify) 5 mg PO HS 10/30/19 08/16/21 flash glucose sensor (FreeStyle 06/16/21 06/16/21 Jose Francisco 14 Day Sensor) rosuvastatin 5 mg tablet 5 mg PO Q OTHER DAY 06/16/21 08/16/21 semaglutide (Ozempic) 0.25 mg SUBCUT WK 08/16/21 08/16/21 Previous Rx's Medication Instructions Recorded aspirin 81 mg tablet,delayed 81 mg PO QAM #30 tab 03/02/19 release (Ecotrin Low Strength) ondansetron 4 mg disintegrating 4 mg PO Q8H PRN #6 tab 12/28/20 tablet insulin glargine 100 unit/mL (3 20 unit SQ QAM #2 box 03/09/21 mL) subcutaneous pen (Lantus Solostar U-100 Insulin) insulin lispro 100 unit/mL 2 unit SUBCUT DAILY #1 box 06/16/21 subcutaneous pen (Humalog KwikPen (U-100) Insulin) pen needle, diabetic 32 gauge x #100 ea 06/16/21 5/32" (BD Ultra-Fine Flores Pen Needle) Results & Data (ED) Vital Signs Vital Signs - 24 hr 08/16/21 16:51 08/16/21 17:33 08/16/21 18:00 Temperature 36.9 C Temperature Source Temporal Artery Scan Pulse Rate 143 H 117 H Pulse Rate [Apical] 122 H Respiratory Rate 16 24 25 H Respiratory Effort / Characteristics Non-Labored Respiratory Depth Normal Respiratory Pattern Regular Blood Pressure 155/91 H 114/99 Blood Pressure [Right Arm] 143/86 H Blood Pressure Mean 112 104 Blood Pressure Mean [Right Arm] 105 Pulse Oximetry 96 94 94 Oxygen Delivery Method Room Air Room Air Sepsis Recent Fever Within 48 Hours No Sepsis New/Unexplained Change in Mental Status N/A Sepsis Action Taken by Nursing No Action Required 08/16/21 19:00 08/16/21 20:30 Temperature Temperature Source Pulse Rate 111 H Pulse Rate [Apical] 113 H 115 H Respiratory Rate 20 33 H Respiratory Effort / Characteristics Respiratory Depth Respiratory Pattern Blood Pressure 142/86 H Blood Pressure [Right Arm] 142/86 H 119/102 H Blood Pressure Mean 104 Blood Pressure Mean [Right Arm] 104 107 Pulse Oximetry 96 95 Oxygen Delivery Method Sepsis Recent Fever Within 48 Hours Sepsis New/Unexplained Change in Mental Status Sepsis Action Taken by Intermediate Medications Current Medication List: was personally reviewed by me Laboratory Data Attestation: I reviewed the patient's lab results. Result diagrams: 08/16/21 17:20 08/16/21 17:20 Lab Results 08/16/21 08/16/21 08/16/21 Range/Units 16:53 17:18 17:20 WBC 9.17 (4.8-10.8) K/uL RBC 4.72 (4.2-5.4) M/uL Hgb 13.6 (12.0-16.0) g/dL Hct 40.9 (37-47) % MCV 86.7 (80-100) fL MCH 28.8 (25-34) pg MCHC 33.3 (32-36) g/dL RDW Std Deviation 46.1 (36.4-46.3) fL RDW Coeff of Maris 14.5 (11.5-14.5) % Plt Count 302 (130-400) K/uL MPV 10.1 (7.4-10.4) fL Immature Gran % (Auto) 0.2 % Neut % (Auto) 60.7 % Lymph % (Auto) 28.5 % Dawes % (Auto) 10.1 % Eos % (Auto) 0.3 % Baso % (Auto) 0.2 % Neut # (Auto) 5.56 (1.4-6.5) K/uL Lymph # (Auto) 2.61 (1.2-3.4) K/uL Dawes # (Auto) 0.93 H (0.11-0.59) K/uL Eos # (Auto) 0.03 (0-0.5) K/uL Baso # (Auto) 0.02 (0-0.2) K/uL Immature Gran # (Auto) 0.02 (0.00-0.02) K/uL Sodium (136-145) mmol/L Potassium (3.5-5.1) mmol/L Chloride (98-107) mmol/L Carbon Dioxide (21-32) mmol/L Anion Gap (3-11) BUN (6-23) mg/dl Creatinine (0.6-1.2) mg/dl Est Cr Clr Drug Dosing Est GFR ( Amer) ml/min Est GFR (Non-Af Amer) ml/min BUN/Creatinine Ratio (10-20) Glucose (70-99) mg/dl POC Glucose 175 H (70-99) mg/dl Lactate 3.4 H* (0.4-2.0) mmol/L Calcium (8.5-10.1) mg/dl Total Bilirubin (0.2-1.0) mg/dl AST (13-39) U/L ALT (7-52) U/L Alkaline Phosphatase (34-104) U/L Troponin I (0-0.04) ng/ml Total Protein (6.0-8.3) gm/dl Albumin (3.4-5.0) gm/dl Globulin (2.5-4.0) gm/dl Albumin/Globulin Ratio (0.9-2) Urine Color Urine Appearance (Clear) Urine pH (4.5-7.5) Ur Specific Bend (1.000-1.030) Urine Protein (Negative) Urine Glucose (UA) (Negative) Urine Ketones (Negative) Urine Blood (Negative) Urine Nitrite (Negative) Urine Bilirubin (Negative) Urine Urobilinogen (Negative) Ur Leukocyte Esterase (Negative) Urine WBC (Auto) (0-5) /hpf Urine RBC (Auto) (0-4) /hpf U Hyaline Cast (Auto) (0-5) /lpf U Epithel Cells (Auto) (0-5) /lpf Urine Bacteria (Auto) (Negative) SARS-CoV-2 (PCR) (Negative) Influenza Type A (PCR) (Neg) Influenza Type B (PCR) (Neg) RSV (RT-PCR) (Neg) 08/16/21 08/16/21 08/16/21 Range/Units 17:20 17:20 17:41 WBC (4.8-10.8) K/uL RBC (4.2-5.4) M/uL Hgb (12.0-16.0) g/dL Hct (37-47) % MCV (80-100) fL MCH (25-34) pg MCHC (32-36) g/dL RDW Std Deviation (36.4-46.3) fL RDW Coeff of Maris (11.5-14.5) % Plt Count (130-400) K/uL MPV (7.4-10.4) fL Immature Gran % (Auto) % Neut % (Auto) % Lymph % (Auto) % Dawes % (Auto) % Eos % (Auto) % Baso % (Auto) % Neut # (Auto) (1.4-6.5) K/uL Lymph # (Auto) (1.2-3.4) K/uL Dawes # (Auto) (0.11-0.59) K/uL Eos # (Auto) (0-0.5) K/uL Baso # (Auto) (0-0.2) K/uL Immature Gran # (Auto) (0.00-0.02) K/uL Sodium 135 L (136-145) mmol/L Potassium 4.1 (3.5-5.1) mmol/L Chloride 102 (98-107) mmol/L Carbon Dioxide 22 (21-32) mmol/L Anion Gap 11 (3-11) BUN 14 (6-23) mg/dl Creatinine 0.65 (0.6-1.2) mg/dl Est Cr Clr Drug Dosing Not Reportable Est GFR ( Amer) 108.0 ml/min Est GFR (Non-Af Amer) 93.2 ml/min BUN/Creatinine Ratio 21.5 H (10-20) Glucose 162 H (70-99) mg/dl POC Glucose 139 H (70-99) mg/dl Lactate (0.4-2.0) mmol/L Calcium 9.7 (8.5-10.1) mg/dl Total Bilirubin 0.3 (0.2-1.0) mg/dl AST 16 (13-39) U/L ALT 10 (7-52) U/L Alkaline Phosphatase 55 (34-104) U/L Troponin I < 0.03 (0-0.04) ng/ml Total Protein 7.5 (6.0-8.3) gm/dl Albumin 4.2 (3.4-5.0) gm/dl Globulin 3.3 (2.5-4.0) gm/dl Albumin/Globulin Ratio 1.3 (0.9-2) Urine Color Urine Appearance (Clear) Urine pH (4.5-7.5) Ur Specific Bend (1.000-1.030) Urine Protein (Negative) Urine Glucose (UA) (Negative) Urine Ketones (Negative) Urine Blood (Negative) Urine Nitrite (Negative) Urine Bilirubin (Negative) Urine Urobilinogen (Negative) Ur Leukocyte Esterase (Negative) Urine WBC (Auto) (0-5) /hpf Urine RBC (Auto) (0-4) /hpf U Hyaline Cast (Auto) (0-5) /lpf U Epithel Cells (Auto) (0-5) /lpf Urine Bacteria (Auto) (Negative) SARS-CoV-2 (PCR) POSITIVE A* (Negative) Influenza Type A (PCR) Negative (Neg) Influenza Type B (PCR) Negative (Neg) RSV (RT-PCR) Negative (Neg) 08/16/21 08/16/21 Range/Units 18:36 19:36 WBC (4.8-10.8) K/uL RBC (4.2-5.4) M/uL Hgb (12.0-16.0) g/dL Hct (37-47) % MCV (80-100) fL MCH (25-34) pg MCHC (32-36) g/dL RDW Std Deviation (36.4-46.3) fL RDW Coeff of Maris (11.5-14.5) % Plt Count (130-400) K/uL MPV (7.4-10.4) fL Immature Gran % (Auto) % Neut % (Auto) % Lymph % (Auto) % Dawes % (Auto) % Eos % (Auto) % Baso % (Auto) % Neut # (Auto) (1.4-6.5) K/uL Lymph # (Auto) (1.2-3.4) K/uL Dawes # (Auto) (0.11-0.59) K/uL Eos # (Auto) (0-0.5) K/uL Baso # (Auto) (0-0.2) K/uL Immature Gran # (Auto) (0.00-0.02) K/uL Sodium (136-145) mmol/L Potassium (3.5-5.1) mmol/L Chloride (98-107) mmol/L Carbon Dioxide (21-32) mmol/L Anion Gap (3-11) BUN (6-23) mg/dl Creatinine (0.6-1.2) mg/dl Est Cr Clr Drug Dosing Est GFR ( Amer) ml/min Est GFR (Non-Af Amer) ml/min BUN/Creatinine Ratio (10-20) Glucose (70-99) mg/dl POC Glucose (70-99) mg/dl Lactate 2.0 (0.4-2.0) mmol/L Calcium (8.5-10.1) mg/dl Total Bilirubin (0.2-1.0) mg/dl AST (13-39) U/L ALT (7-52) U/L Alkaline Phosphatase (34-104) U/L Troponin I (0-0.04) ng/ml Total Protein (6.0-8.3) gm/dl Albumin (3.4-5.0) gm/dl Globulin (2.5-4.0) gm/dl Albumin/Globulin Ratio (0.9-2) Urine Color Yellow Urine Appearance Clear (Clear) Urine pH 5.0 (4.5-7.5) Ur Specific Bend 1.027 (1.000-1.030) Urine Protein 2+ H (Negative) Urine Glucose (UA) Trace H (Negative) Urine Ketones 1+ H (Negative) Urine Blood Negative (Negative) Urine Nitrite Negative (Negative) Urine Bilirubin Negative (Negative) Urine Urobilinogen Negative (Negative) Ur Leukocyte Esterase Negative (Negative) Urine WBC (Auto) 1-5 (0-5) /hpf Urine RBC (Auto) 0-4 (0-4) /hpf U Hyaline Cast (Auto) 1-5 (0-5) /lpf U Epithel Cells (Auto) >30 H (0-5) /lpf Urine Bacteria (Auto) Negative (Negative) SARS-CoV-2 (PCR) (Negative) Influenza Type A (PCR) (Neg) Influenza Type B (PCR) (Neg) RSV (RT-PCR) (Neg) Administered Medications Discontinued Medications Sodium Chloride (Nss 1000ml) 1,000 mls @ 999 mls/hr IV .Q1H1M ONE Stop: 08/16/21 17:56 Last Infusion: 08/16/21 18:40 Dose: 0 mls/hr Documented by: [id number] Admin: 08/16/21 17:22 Dose: 999 mls/hr Documented by: [id number] Cefepime HCl (Maxipime) 2,000 mg in 20 mls @ 5 mls/min IV NOW STA; Protocol Stop: 08/16/21 17:12 Last Admin: 08/16/21 17:30 Dose: 5 mls/min Documented by: [id number] Sodium Chloride (Nss 1000ml) 1,000 mls @ 999 mls/hr IV .Q1H1M ONE Stop: 08/16/21 18:52 Last Infusion: 08/16/21 18:40 Dose: 0 mls/hr Documented by: [id number] Admin: 08/16/21 17:59 Dose: 999 mls/hr Documented by: [id number] Ondansetron HCl (Ondansetron Inj 2 Mg/Ml 2 Ml Vial) 4 mg IV NOW STA Stop: 08/16/21 17:04 Last Admin: 08/16/21 17:22 Dose: 4 mg Documented by: [id number] Imaging Data Radiologist's Impression: Chest X-Ray 08/16/21 17:03 XR chest 1V portable CLINICAL HISTORY: cough TECHNIQUE: Single frontal radiograph of the chest was obtained. Comparison: Comparison is made to chest 2 views 08/03/2021 FINDINGS: No lines and tubes are seen. The aorta is tortuous. The remainder of the cardiomediastinal silhouette is unremarkable. The lungs are clear. No evidence of pleural effusion or pneumothorax. IMPRESSION: No acute chest disease. ACT 112: Negative or not required by law. Electronically signed by: Cleveland Rivera M.D. 08/16/2021 5:35 PM Discharge Plan Visit Data Chief Complaint: Hyperglycemia Stated Complaint: SUGAR TOO LOW, THEN SPIKED ED Provider: Bright Gutierrez Discharge Problem: Weakness, Tachycardia, Fever, COVID-19 Patient Disposition: Admitted As Inpatient Condition: Fair Forms Stand Alone Forms: My [facility] [email or web address] Prescriptions Prescriptions: No Action (DME) FreeStyle Jose Francisco 14 Day Sensor Kit See Rx Instructions .ROUTE RF: 0 rosuvastatin 5 mg tablet 5 mg PO Q OTHER DAY RF: 0 insulin lispro [Humalog KwikPen Insulin] 100 unit/mL insulin pen 2 unit subcut DAILY Qty: 1 RF: 5 (DME) pen needle, diabetic [BD Ultra-Fine Flores Pen Needle] 32 gauge x 5/32" needle See Rx Instructions miscellaneous .MEDSUPPLY Qty: 100 RF: 5 Lantus Solostar U-100 Insulin 100 unit/mL (3 mL) insulin pen 20 unit SQ QAM Qty: 2 RF: 3 aspirin [Ecotrin Low Strength] 81 mg Tablet,Delayed Release (Dr/Ec) 81 mg PO QAM Qty: 30 RF: 0 docusate sodium [Colace] 100 mg Capsule 100 mg PO BID RF: 0 Trintellix 20 mg tablet 20 mg PO HS RF: 0 metformin 1,000 mg tablet 1,000 mg PO BID RF: 0 levothyroxine 137 mcg tablet 137 mcg PO QAM RF: 0 mirtazapine 30 mg tablet 30 mg PO HS RF: 0 aripiprazole [Abilify] 5 mg tablet 5 mg PO HS RF: 0 ondansetron 4 mg tablet,disintegrating 4 mg PO Q8H PRN (Reason: nausea and vomiting) Qty: 6 RF: 0 Ozempic 0.25 mg or 0.5 mg(2 mg/1.5 mL) pen injector 0.25 mg SUBCUT WK RF: 0 Referrals Referrals: Andry Kerr MD [Primary Care Provider] -
[2021-08-16 17:35] LABS: Basophils # (auto) 0.02 K/uL (0-0.2); Basophils % (auto) 0.2 %; Eosinophils # (auto) 0.03 K/uL (0-0.5); Eosinophils % (auto) 0.3 %; Hematocrit (blood only) 40.9 % (37-47); Hemoglobin 13.6 g/dL (12.0-16.0); Immature Granulocytes # (auto) 0.02 K/uL (0.00-0.02); Immature Granulocytes % (auto) 0.2 %; Lymphocytes # (auto) 2.61 K/uL (1.2-3.4); Lymphocytes % (auto) 28.5 %; Mean Corpuscular Hemoglobin 28.8 pg (25-34); Mean Corpuscular Hgb Conc 33.3 g/dL (32-36); Mean Corpuscular Volume 86.7 fL (80-100); Mean Platelet Volume 10.1 fL (7.4-10.4); Monocytes # (auto) 0.93 K/uL (0.11-0.59); Monocytes % (auto) 10.1 %; Neutrophils # (auto) 5.56 K/uL (1.4-6.5); Neutrophils % (auto) 60.7 %; Platelet Count 302 K/uL (130-400); RDW Coefficient of Variation 14.5 % (11.5-14.5); RDW Standard Deviation 46.1 fL (36.4-46.3); Red Blood Count 4.72 M/uL (4.2-5.4); White Blood Count 9.17 K/uL (4.8-10.8)
--- NOTE | 2021-08-16 17:36 | XRay Report ---
XR chest 1V portable CLINICAL HISTORY: cough TECHNIQUE: Single frontal radiograph of the chest was obtained. Comparison: Comparison is made to chest 2 views 08/03/2021 FINDINGS: No lines and tubes are seen. The aorta is tortuous. The remainder of the cardiomediastinal silhouette is unremarkable. The lungs are clear. No evidence of pleural effusion or pneumothorax. IMPRESSION: No acute chest disease. ACT 112: Negative or not required by law. Electronically signed by: Cleveland Rivera M.D. 08/16/2021 5:35 PM
[2021-08-16 18:00] LABS: Alanine Aminotransferase 10 U/L (7-52); Albumin Level 4.2 gm/dl (3.4-5.0); Alkaline Phosphatase 55 U/L (34-104); Anion Gap 11 (3-11); Aspartate Aminotransferase 16 U/L (13-39); BUN Creatinine Ratio 21.5 (10-20); Bilirubin,Total 0.3 mg/dl (0.2-1.0); Blood Urea Nitrogen 14 mg/dl (6-23); Calcium 9.7 mg/dl (8.5-10.1); Carbon Dioxide 22 mmol/L (21-32); Chloride 102 mmol/L (98-107); Est GFR (Non-African American) 93.2 ml/min; Globulin 3.3 gm/dl (2.5-4.0); Glucose 162 mg/dl (70-99); Potassium 4.1 mmol/L (3.5-5.1); Sodium 135 mmol/L (136-145); Total Protein 7.5 gm/dl (6.0-8.3); Troponin I < 0.03 ng/ml (0-0.04)
[2021-08-16 18:07] LABS: Influenza A virus by PCR Negative (Neg); Influenza B virus by PCR Negative (Neg); RSV by PCR Negative (Neg)
[2021-08-16 18:15] LABS: SARS CoV2 RNA(COVID-19) InHosp POSITIVE (Negative)
[2021-08-16 18:23] LABS: Albumin Globulin Ratio 1.3 (0.9-2)
[2021-08-16 18:48] LABS: Appearance Urine Clear (Clear); Bacteria Urine Automated Negative (Negative); Bilirubin Urine Negative (Negative); Blood Urine Negative (Negative); Color Urine Yellow; Epithelial Cell Urine Auto >30 /lpf (0-5); Glucose Urine UA Trace (Negative); Ketones Urine 1+ (Negative); Leukocyte Esterase Urine Negative (Negative); Nitrite Urine Negative (Negative); Protein Urine 2+ (Negative); RBC Urine Automated 0-4 /hpf (0-4); Specific Gravity Urine 1.027 (1.000-1.030); Urobilinogen Urine Negative (Negative)
--- NOTE | 2021-08-16 20:27 | History & Physical Report ---
Date of Service August 16, 2021 Assessment & Plan (1) COVID-19: Plan: COVID-19 day #2 illness, completed initial Moderna vaccine series in February 2021, has not received booster. Patient is not hypoxemic or requiring supplemental oxygen, therefore not a candidate for other therapies. CRP, procalcitonin, LDH, ferritin, and fibrinogen pending on admission CXR showed no acute chest disease. SCDs and Lovenox 30 mg Q12 ordered for DVT prophylaxis Patient received 2L IV crystalloid in ED, can orally hydrate overnight. Diurese as needed. (2) Hyperglycemia due to type 2 diabetes mellitus: Plan: Fluctuating sugars are likely due to patient's recent decrease in appetite, which is likely a symptom of COVID-19 infection. Less likely due to medication noncompliance, as patienr denies missing or accidentally doubling her doses. No recent regimen changes have been made. Accuchecks ACHS with sliding scale insulin. Diabetic diet. (3) Diabetic peripheral neuropathy: Plan: Continue mirtazapine. Present on Admission?: Yes (4) Postsurgical hypothyroidism: Plan: Continue Synthroid Present on Admission?: Yes (5) Major depressive disorder, recurrent episode, severe with anxious distress: Plan: Continue Trintellix and and Abilify History of Present Illness Primary Care Provider: Andry Kerr MD Patient is a 66 y/o female with a PMH of T2DM, diabetic peripheral neuropathy, hypothyroidism, and depression who presents with concern regarding unstable blood sugars over the past 24 hours. Patient reports yesterday when she routinely checked her sugar, it was in the 50s. She ate several slices of bread to bring it up, but states it did not improve. She denies any recent changes or missed doses of her diabetes medications, which includes Lantus and Humalog daily and Ozempic once weekly. Patient denies weakness or confusion, but does say she has felt generally unwell and not herself for the past few days, noting a decreased appetite. Patient's experienced body aches this past Sunday, 08/12 and had a PCR COVID test performed the following day, 08/13. Results are still pending. Patient was tested in the emergency department and was positive for COVID-19. They were in contact with their daughter around [place] who tested positive for COVID-19, but otherwise do not know of any other contacts. She reports an occasional dry cough but otherwise denies fever/chills, myalgias, difficulty breathing, dyspnea at rest or with activity, palpitations, nausea, and vomiting. Labs are significant for a blood glucose of 162, POC glucose was 139. Urinalysis showed 2+ protein, 1+ ketones, and trace glucose. COVID-2 positive. All other labs within normal limits/negative. Allergies Allergy/AdvReac Type Severity Reaction Status Date / Time cisapride Allergy Intermediate Hives Verified 08/16/21 18:46 doxycycline Allergy Intermediate Rash Verified 08/16/21 18:46 gadobutrol [From Gadavist] Allergy Intermediate Hives Verified 08/16/21 18:46 lansoprazole Allergy Intermediate Hives Verified 08/16/21 18:46 Penicillins Allergy Mild Rash Verified 08/16/21 18:46 tetracycline Allergy Mild Rash Verified 08/16/21 18:46 Home Medications Medication Instructions Recorded Confirmed Type levothyroxine 137 mcg tablet 137 mcg PO QAM 05/04/18 08/16/21 History mirtazapine 30 mg tablet 30 mg PO HS 05/04/18 08/16/21 History aspirin 81 mg tablet,delayed 81 mg PO QAM #30 tab 03/02/19 08/16/21 Rx release (Ecotrin Low Strength) docusate sodium 100 mg capsule 100 mg PO BID 06/06/19 08/16/21 History (Colace) vortioxetine 20 mg tablet 20 mg PO HS 06/06/19 08/16/21 History (Trintellix) metformin 1,000 mg tablet 1,000 mg PO BID 10/01/19 08/16/21 History aripiprazole 5 mg tablet (Abilify) 5 mg PO HS 10/30/19 08/16/21 History ondansetron 4 mg disintegrating 4 mg PO Q8H PRN #6 tab 12/28/20 08/16/21 Rx tablet insulin glargine 100 unit/mL (3 20 unit SQ QAM #2 box 03/09/21 08/16/21 Rx mL) subcutaneous pen (Lantus Solostar U-100 Insulin) flash glucose sensor (FreeStyle 06/16/21 06/16/21 History Jose Francisco 14 Day Sensor) insulin lispro 100 unit/mL 2 unit SUBCUT DAILY #1 box 06/16/21 08/16/21 Rx subcutaneous pen (Humalog KwikPen (U-100) Insulin) pen needle, diabetic 32 gauge x #100 ea 06/16/21 06/16/21 Rx 5/32" (BD Ultra-Fine Flores Pen Needle) rosuvastatin 5 mg tablet 5 mg PO Q OTHER DAY 06/16/21 08/16/21 History semaglutide (Ozempic) 0.25 mg SUBCUT WK 08/16/21 08/16/21 History Past Med/Surg History Medical History (Updated 08/16/21 @ 20:45 by Betty Cruz PA-C) Abdominal pain Acute gastritis Altered mental status Anxiety Cervical dysplasia Chest pain Chest pain Constipation Diabetes Dizziness Dyslipidemia Fecal impaction GERD (gastroesophageal reflux disease) Gout H/O: stroke History of anemia HNP (herniated nucleus pulposus), lumbar Hyperglycemia Hyperglycemia Hyperlipidemia Hypertension Hypoglycemia Hypokalemia Hypotension Intractable low back pain Lactic acidemia Lower extremity weakness Lumbar stenosis with neurogenic claudication Major depressive disorder, recurrent episode, severe with anxious distress Nausea & vomiting Neurological deficit present Postsurgical hypothyroidism Suicide attempt T2DM (type 2 diabetes mellitus) Tachycardia Vertigo Wound, open, ear, external with complication Surgical History H/O cardiac catheterization H/O dilation and curettage H/O laparoscopy History of colposcopy with cervical biopsy History of dental surgery History of hysterectomy History of tonsillectomy History of total abdominal hysterectomy Previous back surgery Status post hysteroscopic ablation of endometrium Status post lumbar spine surgery for decompression of spinal cord Family History Mother , in her early 70s of some sort of cancer (patient not clear if it was breast cancer) Breast cancer Diabetes Grandmother Breast cancer Grandmother Breast cancer Unknown Colon cancer Father , Diet it age 78 of a myelodysplastic syndrome. He also had Qlusgjr-Whrvk-Ijoag disease. Myelodysplasia (myelodysplastic syndrome) Wegczcf-Sotgw-Asvqb disease Heart disease Brother Hvoqrhr-Oevfl-Bhadb disease Other No pertinent family history in first degree relatives Social History Smoking Status: Never smoker Hx Alcohol Use: No Hx Substance Use: No Preferred Language: Tamazight Communication Ability: Effective Company Driver Required: No Beliefs That Will Affect Care: None marital status: Life Partner Current Living Situation: Spouse current occupational status: disabled current occupation: Patient used to work at [employer] for 23 years and then [employer] How many Children do You have: 2 other: Retired on disability from her back 3 years ago Feels Safe at Home: Yes Assistive Devices: Walker Review of Systems Constitutional: + fatigue, + malaise and + anorexia; no fever, no chills, no body aches and no weakness Respiratory: + cough (nonproductive); no chest congestion, no dyspnea, no dyspnea on exertion, no pain on inspiration, no pain with cough, no sputum production and no wheezing Cardiovascular: no chest pain, no chest pain at rest, no chest pain with activity, no dyspnea, no dyspnea at rest, no dyspnea on exertion, no palpitations and no lightheadedness Gastrointestinal: no abdominal pain, no nausea, no vomiting and no diarrhea /loose stools Musculoskeletal: no myalgia and no body aches Neurologic: no localized weakness, no generalized weakness, no dizziness, no headache(s) and no confusion Endocrine: no polydipsia and no polyuria Physical Exam Constitutional: WD/WN, vitals as above no acute distress Eyes: PERRL, conjunctivae normal, anicteric sclerae ENMT: external ear and nose normal, oropharynx normal Neck: trachea midline, no thyromegaly normal visual inspection Respiratory: + cough and able to speak in complete sentences; no respiratory distress, does not use accessory muscles and not tachypneic Auscultation: lungs clear to auscultation bilaterally; no diminished lung sounds, no crackles, no rales, no rhonchi and no wheezes Cardiovascular: RRR, no murmur, no edema Gastrointestinal (Abdomen): normal bowel sounds, soft, nontender, no hepatosplenomegaly Inspection/Auscultation: abdomen normal to inspection Musculoskeletal: no cyanosis or clubbing, extremities motor strength 5/5 Skin: no rashes, warm and dry Neurologic: patellar DTR's 2+ bilat, sensation intact and PERRL, EOMI, accommodation nl, no face palsy, no dysarthria Psychiatric: A+Ox3, euthymic affect Results & Data Results & Data ([facility]) Vital Signs (Past 12 Hours) Vital Signs Temp Pulse Pulse Resp BP BP Pulse Ox 08/16/21 19:00 111 H 113 H 20 142/86 H 142/86 H 96 08/16/21 18:00 117 H 25 H 114/99 94 08/16/21 17:33 122 H 24 143/86 H 94 08/16/21 16:51 36.9 C 143 H 16 155/91 H 96 Laboratory Results Abnormal lab results 08/16/21 08/16/21 08/16/21 Range/Units 16:53 17:18 17:20 Mcduffie # (Auto) 0.93 H (0.11-0.59) K/uL Sodium (136-145) mmol/L BUN/Creatinine Ratio (10-20) Glucose (70-99) mg/dl POC Glucose 175 H (70-99) mg/dl Lactate 3.4 H* (0.4-2.0) mmol/L Urine Protein (Negative) Urine Glucose (UA) (Negative) Urine Ketones (Negative) U Epithel Cells (Auto) (0-5) /lpf SARS-CoV-2 (PCR) (Negative) 08/16/21 08/16/21 08/16/21 Range/Units 17:20 17:20 17:41 Mcduffie # (Auto) (0.11-0.59) K/uL Sodium 135 L (136-145) mmol/L BUN/Creatinine Ratio 21.5 H (10-20) Glucose 162 H (70-99) mg/dl POC Glucose 139 H (70-99) mg/dl Lactate (0.4-2.0) mmol/L Urine Protein (Negative) Urine Glucose (UA) (Negative) Urine Ketones (Negative) U Epithel Cells (Auto) (0-5) /lpf SARS-CoV-2 (PCR) POSITIVE A* (Negative) 08/16/21 Range/Units 18:36 Mcduffie # (Auto) (0.11-0.59) K/uL Sodium (136-145) mmol/L BUN/Creatinine Ratio (10-20) Glucose (70-99) mg/dl POC Glucose (70-99) mg/dl Lactate (0.4-2.0) mmol/L Urine Protein 2+ H (Negative) Urine Glucose (UA) Trace H (Negative) Urine Ketones 1+ H (Negative) U Epithel Cells (Auto) >30 H (0-5) /lpf SARS-CoV-2 (PCR) (Negative) Diagnostic Findings Chest X-Ray 08/16/21 17:03 XR chest 1V portable CLINICAL HISTORY: cough TECHNIQUE: Single frontal radiograph of the chest was obtained. Comparison: Comparison is made to chest 2 views 08/03/2021 FINDINGS: No lines and tubes are seen. The aorta is tortuous. The remainder of the cardiom ediastinal silhouette is unremarkable. The lungs are clear. No evidence of pleural effusion or pneumothorax. IMPRESSION: No acute chest disease. ACT 112: Negative or not required by law. Electronically signed by: Cleveland Rivera M.D. 08/16/2021 5:35 PM ECG Additional Comments: Sinus tachycardia Otherwise normal ECG When compared with ECG of 03-AUG-2021 18:47, Borderline criteria for Inferior infarct are no longer Present ST now depressed in Anterior leads Nonspecific T wave abnormality no longer evident in Inferior leads Code Status & VTE Plan VTE Prophylaxis Plan VTE Prophylaxis will be ordered: Yes PG Care Time/CCT Total # of Minutes Spent Total Time Spent with Patient: Total time spent is greater than 50% in coordination of care (as documented) at patient's floor/unit and/or counseling patient: Coding Level of Care Code INT OBSERVATION CARE 50M LVL 2 Diagnoses Hyperglycemia due to type 2 diabetes mellitus E11.65; Z79.4 Diabetes mellitus senior care insulin use: with moth exterminator use Diabetic peripheral neuropathy E11.42 Postsurgical hypothyroidism E89.0 COVID-19 U07.1 Major depressive disorder, recurrent episode, severe with anxious distress F33.2 (1) Hyperglycemia due to type 2 diabetes mellitus Diabetes mellitus moth exterminator insulin use: with senior care use Qualified Code(s): E11.65 - Type 2 diabetes mellitus with hyperglycemia; Z79.4 - termite exterminator (current) use of insulin
[2021-08-16 22:07] LABS: Fibrinogen 507 mg/dl (184-400)
[2021-08-16 22:26] LABS: Ferritin 43.3 ng/ml (8-388)
[2021-08-17] MEDS ORDERED: DEXTROSE 50% 50 ML SYRINGE IV PRN (01:28)
[2021-08-17] MEDS ORDERED: ALUMINUM/MAGNESIUM SUSP 30 ML UDC PO PRN (01:28)
[2021-08-17] MEDS ORDERED: MAGNESIUM HYDROXIDE SUSP 30 ML UDC PO PRN (01:28)
[2021-08-17] MEDS ORDERED: GLUCOSE 10 TABS/TUBE PO PRN (01:28)
[2021-08-17] MEDS ORDERED: ONDANSETRON INJ 2 MG/ML 2 ML VIAL IV PRN (01:28)
[2021-08-17] MEDS ORDERED: ONDANSETRON 4 MG OD TAB PO PRN (01:28)
[2021-08-17] MEDS ORDERED: ACETAMINOPHEN 325 MG TAB PO PRN (01:28)
[2021-08-17] MEDS ORDERED: CARBOHYDRATES FOR HYPOGLYCEMIA PO PRN (01:28)
[2021-08-17] MEDS ORDERED: GLUCOSE 40% GEL 15 GM TUBE PO PRN (01:28)
[2021-08-17] MEDS ORDERED: GLUCAGON FOR INJ 1 MG VIAL SQ PRN (01:28)
[2021-08-17] MEDS ORDERED: ARIPiprazole 5 MG TAB PO STA (01:40)
[2021-08-17] MEDS ORDERED: MIRTAZAPINE TAB 15 MG TAB PO ONE (01:40)
[2021-08-17] MEDS ORDERED: DOCUSATE SODIUM 100 MG CAP PO STA (01:47)
[2021-08-17] MEDS: TRINTELLIX~ORDER AWAITING ACTION SCH ×4 (02:35→23:29)
[2021-08-17 06:22] LABS: Basophils # (auto) 0.01 K/uL (0-0.2); Basophils % (auto) 0.2 %; Eosinophils # (auto) 0.03 K/uL (0-0.5); Eosinophils % (auto) 0.5 %; Hematocrit (blood only) 35.6 % (37-47); Hemoglobin 11.7 g/dL (12.0-16.0); Immature Granulocytes # (auto) 0.01 K/uL (0.00-0.02); Immature Granulocytes % (auto) 0.2 %; Lymphocytes # (auto) 2.33 K/uL (1.2-3.4); Lymphocytes % (auto) 39.8 %; Mean Corpuscular Hemoglobin 28.5 pg (25-34); Mean Corpuscular Hgb Conc 32.9 g/dL (32-36); Mean Corpuscular Volume 86.8 fL (80-100); Mean Platelet Volume 9.7 fL (7.4-10.4); Monocytes # (auto) 0.53 K/uL (0.11-0.59); Neutrophils # (auto) 2.95 K/uL (1.4-6.5); Neutrophils % (auto) 50.3 %; Platelet Count 264 K/uL (130-400); RDW Coefficient of Variation 14.8 % (11.5-14.5); RDW Standard Deviation 47.3 fL (36.4-46.3); White Blood Count 5.86 K/uL (4.8-10.8)
[2021-08-17] MEDS: LEVOTHYROXINE SODIUM 137 MCG TABLET PO SCH (06:28)
[2021-08-17 06:41] LABS: BUN Creatinine Ratio 13.8 (10-20); Calcium 8.7 mg/dl (8.5-10.1); Creatinine Clr Calc Pharmacy 86.1 ml/min; Est GFR (Non-African American) 93.2 ml/min; Potassium 3.6 mmol/L (3.5-5.1)
--- NOTE | 2021-08-17 08:04 | Electrocardiogram Report ---
Test Reason : Blood Pressure : / mmHG Vent. Rate : 135 BPM Atrial Rate : 135 BPM P-R Int : 134 ms QRS Dur : 074 ms QT Int : 286 ms P-R-T Axes : 040 018 058 degrees QTc Int : 429 ms Sinus tachycardia Otherwise normal ECG When compared with ECG of 03-AUG-2021 18:47, HR has increased by 27 bpm Borderline criteria for Inferior infarct are no longer Present Confirmed by Franky Arenas ([id number]) on 08/17/2021 8:04:13 AM Referred By: REFERRED SELF Confirmed By:Franky Arenas
[2021-08-17] MEDS: INSULIN ASPART PER UNIT SC SCH ×4 (08:15→20:55)
[2021-08-17] MEDS: INSULIN GLARGINE SOLOSTAR 100 UNITS/ML 3 ML PEN SQ SCH (08:15)
[2021-08-17] MEDS: ENOXAPARIN INJ 40 MG/0.4 ML SYR SQ SCH (08:16)
[2021-08-17] MEDS: ASPIRIN 81 MG ECTAB PO SCH (08:19)
[2021-08-17] MEDS: DOCUSATE SODIUM 100 MG CAP PO SCH ×2 (08:19→20:56)
[2021-08-17] MEDS ORDERED: ROSUVASTATIN CALCIUM 5 MG TAB PO SCH (09:00)
--- NOTE | 2021-08-17 20:59 | Hospitalist Progress Note ---
Date of Service August 17, 2021 Assessment & Plan (1) COVID-19: Plan: COVID-19 day #3 illness, completed initial Moderna vaccine series in February 2021, has not received booster. Patient is not hypoxemic or requiring supplemental oxygen, therefore not a candidate for other therapies. CRP, procalcitonin, LDH, ferritin, and fibrinogen reviewed CXR showed no acute chest disease. SCDs and Lovenox 30 mg Q12 ordered for DVT prophylaxis Patient received 2L IV crystalloid in ED, due to tachycARDIA, WILL ORDER ADDITIONAL IVF. (2) Hyperglycemia due to type 2 diabetes mellitus: Plan: Fluctuating sugars are likely due to patient's recent decrease in appetite, which is likely a symptom of COVID-19 infection. Less likely due to medication noncompliance, as patienr denies missing or accidentally doubling her doses. No recent regimen changes have been made. Accuchecks ACHS with sliding scale insulin. Diabetic diet. (3) Diabetic peripheral neuropathy: Plan: Continue mirtazapine. (4) Postsurgical hypothyroidism: Plan: Continue Synthroid (5) Major depressive disorder, recurrent episode, severe with anxious distress: Plan: Continue Trintellix and and Abilify Admission and Anticipated Discharge Date Admission Date: August 16, 2021 Subjective Patient reports feeling well. She has no new complaints. Review of Systems Review of Systems: All systems reviewed & are unremarkable except as noted in HPI & below Physical Exam Physical Exam: Constitutional: WD/WN, vitals as above no acute distress Eyes: PERRL, conjunctivae normal, anicteric sclerae ENMT: external ear and nose normal, oropharynx normal Neck: trachea midline, no thyromegaly normal visual inspection Respiratory: no respiratory distress, does not use accessory muscles and not tachypneic Auscultation: lungs clear to auscultation bilaterally; no diminished lung sounds, no crackles, no rales, no rhonchi and no wheezes Cardiovascular: RRR, no murmur, no edema Gastrointestinal (Abdomen): normal bowel sounds, soft, nontender, no hepatosplenomegaly Inspection/Auscultation: abdomen normal to inspection Musculoskeletal: no cyanosis or clubbing, extremities motor strength 5/5 Skin: no rashes, warm and dry Neurologic: patellar DTR's 2+ bilat, sensation intact and PERRL, EOMI, accommodation nl, no face palsy, no dysarthria Psychiatric: A+Ox3, euthymic affect Results & Data Results & Data ([facility]) Vital Signs (Past 12 Hours) Vital Signs Temp Pulse Resp BP Pulse Ox 08/17/21 15:29 37.1 C 104 H 18 105/64 94 PG Care Time/CCT Total # of Minutes Spent Total Time Spent with Patient: Total time spent is greater than 50% in coordination of care (as documented) at patient's floor/unit and/or counseling patient: Coding Level of Care Code 24586 Subseq Obs Care Lvl 2 Diagnoses COVID-19 U07.1 Hyperglycemia due to type 2 diabetes mellitus E11.65; Z79.4 Diabetes mellitus exterminator termite insulin use: with nursing home use Diabetic peripheral neuropathy E11.42 Postsurgical hypothyroidism E89.0 Major depressive disorder, recurrent episode, severe with anxious distress F33.2 (1) Hyperglycemia due to type 2 diabetes mellitus Diabetes mellitus nursing home insulin use: with nursing home use Qualified Code(s): E11.65 - Type 2 diabetes mellitus with hyperglycemia; Z79.4 - moth exterminator (current) use of insulin
[2021-08-17] MEDS ORDERED: ARIPiprazole 5 MG TAB PO SCH (21:00)
[2021-08-17] MEDS ORDERED: MIRTAZAPINE TAB 15 MG TAB PO SCH (21:00)
[2021-08-17] MEDS ORDERED: TRINTELLIX 20 MG PO SCH (21:00)
[2021-08-17] MEDS ORDERED: LACTATED RINGER'S 1,000 ML IV SCH (21:00)
[2021-08-18] MEDS: LEVOTHYROXINE SODIUM 137 MCG TABLET PO SCH (06:21)
[2021-08-18 07:36] LABS: Hemoglobin 11.4 g/dL (12.0-16.0); Mean Corpuscular Hemoglobin 28.5 pg (25-34); Mean Corpuscular Hgb Conc 32.6 g/dL (32-36); Mean Corpuscular Volume 87.5 fL (80-100); Mean Platelet Volume 10.1 fL (7.4-10.4); Platelet Count 245 K/uL (130-400); RDW Standard Deviation 48.1 fL (36.4-46.3); White Blood Count 6.47 K/uL (4.8-10.8)
[2021-08-18] MEDS: TRINTELLIX~ORDER AWAITING ACTION SCH ×2 (07:52→16:05)
[2021-08-18 07:56] LABS: D Dimer 430 ug/L FEU (0-500)
[2021-08-18] MEDS ORDERED: COUGH DROP (SUGAR FREE) LOZ 24 LOZ/1 BOX BUCCAL PRN (07:59)
[2021-08-18] MEDS ORDERED: CHLORASEPTIC 1.4% SOLN 180 ML BTL MT PRN (08:00)
[2021-08-18 08:07] LABS: BUN Creatinine Ratio 22.4 (10-20); Calcium 9.1 mg/dl (8.5-10.1); Creatinine Clr Calc Pharmacy 96.5 ml/min; Est GFR (African American) 112.1 ml/min; Est GFR (Non-African American) 96.7 ml/min; Potassium 3.9 mmol/L (3.5-5.1)
[2021-08-18] MEDS: DOCUSATE SODIUM 100 MG CAP PO SCH (08:42)
[2021-08-18] MEDS: ASPIRIN 81 MG ECTAB PO SCH (08:42)
[2021-08-18] MEDS: ENOXAPARIN INJ 40 MG/0.4 ML SYR SQ SCH (08:43)
[2021-08-18] MEDS: INSULIN ASPART PER UNIT SC SCH ×3 (08:44→16:59)
[2021-08-18] MEDS: INSULIN GLARGINE SOLOSTAR 100 UNITS/ML 3 ML PEN SQ SCH (08:44)
--- NOTE | 2021-08-18 14:02 | Ultrasound Report ---
US venous doppler LE BI CLINICAL HISTORY: Leg swelling. Evaluate for DVT. COMPARISON: None available at the time of this dictation. TECHNIQUE: Bilateral lower extremity real-time compression venous ultrasound with Color Doppler imagi ng. Utilizing real-time ultrasonic imaging multiple real time high-resolution ultrasonic images with comp ression and noncompression maneuvers of the deep venous system in addition to color doppler imaging w ere performed from the common femoral vein through the proximal calf veins. FINDINGS: Currently there is normal compressibility of the deep venous system from the common femoral vein thro ugh the proximal calf veins. No current evidence of acute thrombosis is identified. Impression: No evidence of deep venous thrombus. ACT 112: Negative or not required by law. Electronically signed by: Zac Mckeon M.D. 08/18/2021 2:00 PM
--- NOTE | 2021-08-22 08:59 | Discharge Summary ---
Date of Service August 18, 2021 Admission HPI Per Admitting Provider Patient is a 66 y/o female with a PMH of T2DM, diabetic peripheral neuropathy, hypothyroidism, and depression who presents with concern regarding unstable blood sugars over the past 24 hours. Patient reports yesterday when she routinely checked her sugar, it was in the 50s. She ate several slices of bread to bring it up, but states it did not improve. She denies any recent changes or missed doses of her diabetes medications, which includes Lantus and Humalog daily and Ozempic once weekly. Patient denies weakness or confusion, but does say she has felt generally unwell and not herself for the past few days, noting a decreased appetite. Patient's experienced body aches this past Sunday, 08/12 and had a PCR COVID test performed the following day, 08/13. Results are still pending. Patient was tested in the emergency department and was positive for COVID-19. They were in contact with their daughter around [place] who tested positive for COVID-19, but otherwise do not know of any other contacts. She re ports an occasional dry cough but otherwise denies fever/chills, myalgias, difficulty breathing, dyspnea at rest or with activity, palpitations, nausea, and vomiting. Labs are significant for a blood glucose of 162, POC glucose was 139. Urinalysis showed 2+ protein, 1+ ketones, and trace glucose. COVID-2 positive. All other labs within normal limits/negative. Principal Diagnosis COVID 19 Discharge Exam Constitutional: WD/WN, vitals as above no acute distress Eyes: PERRL, conjunctivae normal, anicteric sclerae ENMT: external ear and nose normal, oropharynx normal Neck: trachea midline, no thyromegaly normal visual inspection Respiratory: no respiratory distress, does not use accessory muscles and not tachypneic Auscultation: lungs clear to auscultation bilaterally; no diminished lung sounds, no crackles, no rales, no rhonchi and no wheezes Cardiovascular: RRR, no murmur, no edema Gastrointestinal (Abdomen): normal bowel sounds, soft, nontender, no hepatosplenomegaly Inspection/Auscultation: abdomen normal to inspection Musculoskeletal: no cyanosis or clubbing, extremities motor strength 5/5 Skin: no rashes, warm and dry Neurologic: patellar DTR's 2+ bilat, sensation intact and PERRL, EOMI, accommodation nl, no face palsy, no dysarthria Psychiatric: A+Ox3, euthymic affect Discharge Data Allergies Allergy/AdvReac Type Severity Reaction Status Date / Time cisapride Allergy Intermediate Hives Verified 08/16/21 18:46 doxycycline Allergy Intermediate Rash Verified 08/16/21 18:46 gadobutrol [From Gadavist] Allergy Intermediate Hives Verified 08/16/21 18:46 lansoprazole Allergy Intermediate Hives Verified 08/16/21 18:46 Penicillins Allergy Mild Rash Verified 08/16/21 18:46 tetracycline Allergy Mild Rash Verified 08/16/21 18:46 Consultations 08/16/21 19:45 ED Decision to Admit Stat Ordered Studies 08/18/21 10:07 US venous doppler [facility] Routine Hospital Course (1) COVID-19: COVID-19 day #4 illness, completed initial Moderna vaccine series in February 2021, has not received booster. Patient is not hypoxemic or requiring supplemental oxygen, therefore not a candidate for other therapies. CRP, procalcitonin, LDH, ferritin, and fibrinogen reviewed CXR showed no acute chest disease. SCDs and Lovenox 30 mg Q12 ordered for DVT prophylaxis Patient received 2L IV crystalloid in ED, due to tachycARDIA, WILL ORDER ADDITIONAL IVF. On day of discharge: CRP neg. D-dimer and Doppler u;trasound of lower extremity negative. Pulmonary emboli essentially is ruled out. Patient remains on room air, can be discharged. (2) Hyperglycemia due to type 2 diabetes mellitus: Fluctuating sugars are likely due to patient's recent decrease in appetite, which is likely a symptom of COVID-19 infection. Less likely due to medication noncompliance, as patienr denies missing or accidentally doubling her doses. No recent regimen changes have been made. Accuchecks ACHS with sliding scale insulin. Diabetic diet. (3) Diabetic peripheral neuropathy: Continue mirtazapine. (4) Postsurgical hypothyroidism: Continue Synthroid (5) Major depressive disorder, recurrent episode, severe with anxious distress: Continue Trintellix and and Abilify Total Time Total Time Spent Total Time Spent (In Minutes): 35 Discharge Plan Discharge Items Patient Disposition: Home - Home Health Services Reason For Visit: covid-19 Discharge Diagnosis: COVID 19 Condition on Discharge: Fair Activity: Resume your previous activity Non-emergency contact: Primary Care Provider Call non-emergency contact if: you have any medication questions Follow-up/Referrals: Andry Kerr MD [Primary Care Provider] - Diet: Carb Consistent or DM2 Addtl Attending Provider Instructions: You have been hospitalized for an acute medical problem. During your stay at [facility], we have made an effort to correct the problem that brought you to the hospital while keeping you as comfortable as possible. Medications were used to bring your condition under control and your discharge instructions will include directions for any medications you should take after leaving the hospital. Please make sure you see your Primary Care Provider as part of your follow up plan. You were diagnosed with COVID 19. Thankfully your main symptoms are upper respiratory issues like sore throat and stuffed ears. Your inflammatory markers are also low which point towards a milder course. You also were observed for close to 48 hours and you did not require oxygen. If your symptoms worsen in which you are having Shortness of breath or difficulty breathing. Please come back to the hospital. You can also buy a pulse ox machine at your local pharmacy and check if your O2 saturation is above 88%. If it continuosly remains below 88% please come in or call your PCP. Pending Studies at Discharge: No Stand-Alone Forms: My [facility] [employer], Smoking Cessation Medications and DC Order Prescriptions: New Sore Throat (phenol) 1.4 % Aerosol,[place] 5 spray MT Q2H PRN (Reason: sore throat) Qty: 1 RF: 0 Cepacol Sore Throat (ramu-men) 15-3.6 mg Lozenge 1 hawk buccal Q8H PRN (Reason: sore throat) Qty: 30 RF: 0 Continued (DME) FreeStyle [place] 14 Day Sensor Kit See Rx Instructions .ROUTE RF: 0 rosuvastatin 5 mg tablet 5 mg PO Q OTHER DAY RF: 0 insulin lispro [Humalog KwikPen Insulin] 100 unit/mL insulin pen 2 unit subcut DAILY Qty: 1 RF: 5 (DME) pen needle, diabetic [BD Ultra-Fine [place] Pen Needle] 32 gauge x 5/32" needle See Rx Instructions miscellaneous .MEDSUPPLY Qty: 100 RF: 5 Lantus Solostar U-100 Insulin 100 unit/mL (3 mL) insulin pen 20 unit SQ QAM Qty: 2 RF: 3 aspirin [Ecotrin Low Strength] 81 mg Tablet,Delayed Release (Dr/Ec) 81 mg PO QAM Qty: 30 RF: 0 docusate sodium [Colace] 100 mg Capsule 100 mg PO BID RF: 0 Trintellix 20 mg tablet 20 mg PO HS RF: 0 metformin 1,000 mg tablet 1,000 mg PO BID RF: 0 levothyroxine 137 mcg tablet 137 mcg PO QAM RF: 0 mirtazapine 30 mg tablet 30 mg PO HS RF: 0 aripiprazole [Abilify] 5 mg tablet 5 mg PO HS RF: 0 ondansetron 4 mg tablet,disintegrating 4 mg PO Q8H PRN (Reason: nausea and vomiting) Qty: 6 RF: 0 Ozempic 0.25 mg or 0.5 mg(2 mg/1.5 mL) pen injector 0.25 mg SUBCUT WK RF: 0 Discharge Orders: Discharge Order (Routine); Ordered 08/18/21 Ordered By: Santosh Watson Admission Data Admit Date/Time: 08/16/21 21:26 Attending Provider: Santosh Watson Admit Provider: Medardo Chun Primary Care Provider: Andry Kerr Other Providers: Deidra Nelson Other Interventions: Discharge Summary Assessment (RN) Last Done: 08/18/21 16:07 Coding Level of Care Code 95344 OBS Care - Discharge Diagnoses COVID-19 U07.1 Hyperglycemia due to type 2 diabetes mellitus E11.65; Z79.4 Diabetes mellitus long term care phlebotomist insulin use: with long term care phlebotomist use Diabetic peripheral neuropathy E11.42 Postsurgical hypothyroidism E89.0 Major depressive disorder, recurrent episode, severe with anxious distress F33.2 Time Spent (min) 35
[2021-08-22 11:08] LABS: C Reactive Protein 2.28 mg/dl (0-0.5)
[2021-08-22 11:35] LABS: C Reactive Protein 2.15 mg/dl (0-0.5)
== END 2021-08-18 18:03 | disposition home health service (06) ==
LOC: ED 16:43 → EDINP 16:43 → SUATTDRO 21:26 → 2W 08-17 01:27

== ENCOUNTER 2021-10-16 16:24 | Observation (INO) ==
--- NOTE | 2021-10-16 16:43 | Emergency Department Note ---
Impression & Plan Elevated lactic acid level, Hyperglycemia, Tachycardia, History of COVID-19 ED Provider Note NAME: JONATHAN TOVAR AGE: 66 SEX: F : 1955 ARRIVES VIA: Walk-In INFORMANT: Patient, ED PROVIDER(S): Vikash Montalvo MD Chief Complaint: Shakiness, concern for change in blood sugar HPI: Patient presents with the above symptoms and states that she had some shakiness today which she sometimes does have as well as whenever she presents to the emergency department as she is afraid of needles and hospitals. Patient did not check her blood sugar prior to arrival but thought it might either be elevated or low. The patient did take 16 units this morning. Patient denies any atypical changes in her diet. The patient states that she did have Covid last month and sometimes her blood sugars have been more erratic. Patient denies any current fevers chills chest pain shortness of breath nausea or vomiting. Patient denies any leg swelling. The patient denies any difficulty with breathing. Patient states that she does have a follow-up with her diabetes doctor on Sunday. ROS: See HPI for pertinent positives and negatives. A total of 10 systems were reviewed and otherwise negative. Past medical history: See below Surgical history: See below Social history: See below Physical Exam: GENERAL: Shaking, wearing glasses. EYE EXAM: Normal conjunctiva. PERRL, no anisocoria and EOM's grossly intact w/o pain. OROPHARYNX: Dry mucus membranes. Grossly normal dentition. NECK: Supple, no nuchal rigidity, no adenopathy, non-tender. No signs of meningismus. LUNGS: Bibasilar crackles noted. Normal chest wall mechanics. HEART: Tachycardic and regular, no MRG. ABDOMEN: Abdomen soft, non-tender, normo-active bowel sounds, no masses, no rebound or guarding. BACK: No CVA TTP. SKIN: No rashes and no bruising. UPPER EXTREMITIES: Upper extremities are grossly normal. LOWER EXTREMITIES: Grossly normal, no edema. NEURO EXAM: A&O x3, cranial nerves II-XII grossly intact, normal speech, moves all 4 extremities on command w/o issue. Differential diagnoses: Infection, dehydration, metabolic abnormality, hy po/hyperglycemia, electrolyte disturbance, anemia, hypoxia, cardiac sources, intracerebral event, toxicologic, neurologic, as well as other pathologies. Course: Patient was seen and evaluated the bedside. Full history physical exam was performed. EKG interpreted by me Sinus tachycardia, rate of 111, normal intervals, normal axis, no obvious ST changes. Imaging Studies: See Below Cardiac monitoring: An order was placed for continuous cardiac monitoring. The monitor shows a rate of 125 with tachycardic and regular rhythm. MDM: Patient was seen due to concern for tachycardia, possible change in blood sugar and shakiness. Blood work is obtained along with a VBG and a lactic acid. The patient was ordered IV fluids. The patient essentially declined any infectious symptoms and denied any shortness of breath chest pains cough fever abdominal pain nausea vomiting or diarrhea. The patient denies any rash. Patient denies any chest pains, shortness of breath, cough or leg pain. The patient blood work which was completed showed a normal white count H&H and platelet count. The patient's kidney function was unremarkable. The patient does have elevated blood sugar in the 300s. Patient's initial lactate was greater than 5. The patient was ordered a second liter of IV fluids and repeat lactate was obtained showing 4. Given the patient's persistent elevation and lactic acidosis I did speak the on-call hospitalist Dr. Bacon and patient was admitted to the medicine service. Past Med/Surg History Medical History Abdominal pain Acute gastritis Altered mental status Anxiety Cervical dysplasia Chest pain Chest pain Constipation Diabetes Dizziness Dyslipidemia Fecal impaction GERD (gastroesophageal reflux disease) Gout H/O: stroke History of anemia HNP (herniated nucleus pulposus), lumbar Hyperglycemia Hyperglycemia Hyperlipidemia Hypertension Hypoglycemia Hypokalemia Hypotension Intractable low back pain Lactic acidemia Lower extremity weakness Lumbar stenosis with neurogenic claudication Major depressive disorder, recurrent episode, severe with anxious distress Nausea & vomiting Neurological deficit present Postsurgical hypothyroidism Suicide attempt T2DM (type 2 diabetes mellitus) Tachycardia Vertigo Wound, open, ear, external with complication Surgical History H/O cardiac catheterization H/O dilation and curettage H/O laparoscopy History of colposcopy with cervical biopsy History of dental surgery History of hysterectomy History of tonsillectomy History of total abdominal hysterectomy Previous back surgery Status post hysteroscopic ablation of endometrium Status post lumbar spine surgery for decompression of spinal cord Family History Mother , in her early 70s of some sort of cancer (patient not clear if it was breast cancer) Breast cancer Diabetes Grandmother Breast cancer Grandmother Breast cancer Unknown Colon cancer Father , Diet it age 78 of a myelodysplastic syndrome. He also had Mqyezxh-Vwupf-Jgqba disease. Myelodysplasia (myelodysplastic syndrome) Itvutlp-Euzoa-Ydczw disease Heart disease Brother Syrihtc-Isjbh-Pomxm disease Other No pertinent family history in first degree relatives Social History Smoking Status: Never smoker Hx Alcohol Use: No Hx Substance Use: No Preferred Language: Maori Communication Ability: Effective Exercise Instructor Required: No Beliefs That Will Affect Care: None marital status: Life Partner Current Living Situation: Significant Other current occupational status: disabled current occupation: Patient used to work at [employer] for 23 years and then [employer] How many Children do You have: 2 other: Retired on disability from her back 3 years ago Feels Safe at Home: Yes Assistive Devices: Glasses and Walker Allergies Allergies Allergy/AdvReac Type Severity Reaction Status Date / Time cisapride Allergy Intermediate Hives Verified 10/16/21 18:12 doxycycline Allergy Intermediate Rash Verified 10/16/21 18:12 gadobutrol [From Gadavist] Allergy Intermediate Hives Verified 10/16/21 18:12 lansoprazole Allergy Intermediate Hives Verified 10/16/21 18:12 Penicillins Allergy Mild Rash Verified 10/16/21 18:12 tetracycline Allergy Mild Rash Verified 10/16/21 18:12 Home Meds Home Medications Medication Instructions Recorded Confirmed levothyroxine 137 mcg tablet 137 mcg PO QAM 05/04/18 10/16/21 mirtazapine 30 mg tablet 30 mg PO HS 05/04/18 10/16/21 docusate sodium 100 mg capsule 100 mg PO BID 06/06/19 10/16/21 (Colace) vortioxetine 20 mg tablet 20 mg PO HS 06/06/19 10/16/21 (Trintellix) metformin 1,000 mg tablet 1,000 mg PO BID 10/01/19 10/16/21 aripiprazole 5 mg tablet (Abilify) 5 mg PO HS 10/30/19 10/16/21 flash glucose sensor (FreeStyle 06/16/21 06/16/21 Jose Francisco 14 Day Sensor) rosuvastatin 5 mg tablet 5 mg PO Q OTHER DAY 06/16/21 10/16/21 insulin lispro 100 unit/mL 0 sliding scale dose SUBCUT TIDM 10/16/21 10/16/21 subcutaneous pen (Humalog KwikPen (U-100) Insulin) Previous Rx's Medication Instructions Recorded aspirin 81 mg tablet,delayed 81 mg PO QAM #30 tab 03/02/19 release (Ecotrin Low Strength) ondansetron 4 mg disintegrating 4 mg PO Q8H PRN #6 tab 12/28/20 tablet pen needle, diabetic 32 gauge x #100 ea 06/16/21" (BD Ultra-Fine Flores Pen Needle) benzocaine 15 mg-menthol 3.6 mg 1 hawk BUCCAL Q8H PRN #30 ea 08/18/21 lozenges (Cepacol Sore Throat (benzocaine-menthol)) phenol 1.4 % mucosal aerosol spray 5 spray MT Q2H PRN #1 ml 08/18/21 (Sore Throat (phenol)) insulin glargine 100 unit/mL (3 16 unit SQ QAM #2 box 09/26/21 mL) subcutaneous pen (Lantus Solostar U-100 Insulin) Results & Data (ED) Vital Signs Vital Signs - 24 hr 10/16/21 16:29 10/16/21 16:55 10/16/21 17:19 Temperature 36.5 C Temperature Source Temporal Artery Scan Pulse Rate 133 H 117 H 111 H Pulse Rate [Left Finger] Pulse Rate from SpO2 Sensor 117 H 111 H Pulse Rhythm [Left Finger] Pulse Strength [Left Finger] Respiratory Rate 20 42 H 23 Respiratory Effort / Characteristics Non-Labored Respiratory Depth Normal Respiratory Pattern Blood Pressure 174/104 H Blood Pressure [Left Arm] Blood Pressure Mean 127 Blood Pressure Mean [Left Arm] Blood Pressure Position [Left Arm] Pulse Oximetry 97 95 95 Oxygen Delivery Method Room Air Sepsis Recent Fever Within 48 Hours No Sepsis New/Unexplained Change in Mental Status N/A Sepsis Action Taken by Nursing No Action Required 10/16/21 17:29 10/16/21 18:30 10/16/21 19:10 Temperature Temperature Source Pulse Rate 108 H Pulse Rate [Left Finger] 108 H 109 H Pulse Rate from SpO2 Sensor 109 H Pulse Rhythm [Left Finger] Regular Regular Pulse Strength [Left Finger] Normal Normal Respiratory Rate 20 20 20 Respiratory Effort / Characteristics Non-Labored Spontaneous Respiratory Depth Normal Respiratory Pattern Regular Blood Pressure Blood Pressure [Left Arm] 131/97 147/105 H Blood Pressure Mean Blood Pressure Mean [Left Arm] 108 119 Blood Pressure Position [Left Arm] Sitting Sitting Pulse Oximetry 96 97 99 Oxygen Delivery Method Room Air Sepsis Recent Fever Within 48 Hours Sepsis New/Unexplained Change in Mental Status Sepsis Action Taken by Nursing 10/16/21 19:20 10/16/21 19:30 10/16/21 20:00 Temperature Temperature Source Pulse Rate 108 H 107 H 105 H Pulse Rate [Left Finger] Pulse Rate from SpO2 Sensor 109 H 107 H 105 H Pulse Rhythm [Left Finger] Pulse Strength [Left Finger] Respiratory Rate 20 20 23 Respiratory Effort / Characteristics Respiratory Depth Respiratory Pattern Blood Pressure 134/92 132/85 Blood Pressure [Left Arm] Blood Pressure Mean 106 100 Blood Pressure Mean [Left Arm] Blood Pressure Position [Left Arm] Pulse Oximetry 98 96 97 Oxygen Delivery Method Room Air Sepsis Recent Fever Within 48 Hours Sepsis New/Unexplained Change in Mental Status Sepsis Action Taken by Nursing 10/16/21 20:30 Temperature Temperature Source Pulse Rate 109 H Pulse Rate [Left Finger] Pulse Rate from SpO2 Sensor 109 H Pulse Rhythm [Left Finger] Pulse Strength [Left Finger] Respiratory Rate 17 Respiratory Effort / Characteristics Respiratory Depth Respiratory Pattern Blood Pressure 148/99 H Blood Pressure [Left Arm] Blood Pressure Mean 115 Blood Pressure Mean [Left Arm] Blood Pressure Position [Left Arm] Pulse Oximetry 97 Oxygen Delivery Method Room Air Sepsis Recent Fever Within 48 Hours Sepsis New/Unexplained Change in Mental Status Sepsis Action Taken by Shelter Medications Current Medication List: was personally reviewed by me Laboratory Data Attestation: I reviewed the patient's lab results. Result diagrams: 10/16/21 16:50 10/16/21 16:50 Lab Results 10/16/21 10/16/21 10/16/21 Range/Units 16:32 16:50 16:50 WBC 8.89 (4.8-10.8) K/uL RBC 4.57 (4.2-5.4) M/uL Hgb 13.3 (12.0-16.0) g/dL Hct 39.8 (37-47) % MCV 87.1 (80-100) fL MCH 29.1 (25-34) pg MCHC 33.4 (32-36) g/dL RDW Std Deviation 46.1 (36.4-46.3) fL RDW Coeff of Maris 14.5 (11.5-14.5) % Plt Count 293 (130-400) K/uL MPV 10.3 (7.4-10.4) fL Immature Gran % (Auto) 0.2 % Neut % (Auto) 54.3 % Lymph % (Auto) 38.9 % Cameron % (Auto) 4.6 % Eos % (Auto) 1.8 % Baso % (Auto) 0.2 % Neut # (Auto) 4.82 (1.4-6.5) K/uL Lymph # (Auto) 3.46 H (1.2-3.4) K/uL Cameron # (Auto) 0.41 (0.11-0.59) K/uL Eos # (Auto) 0.16 (0-0.5) K/uL Baso # (Auto) 0.02 (0-0.2) K/uL Immature Gran # (Auto) 0.02 (0.00-0.02) K/uL VBG pH (7.36-7.41) VBG pCO2 (38-50) mmHg VBG pO2 mmHg VBG HCO3 mmol/L VBG O2 Saturation % VBG Base Excess mEq/L Barometric Pressure mm/Hg Sodium 139 (136-145) mmol/L Potassium 4.2 (3.5-5.1) mmol/L Chloride 102 (98-107) mmol/L Carbon Dioxide 24 (21-32) mmol/L Anion Gap 13 H (3-11) BUN 12 (6-23) mg/dl Creatinine 0.62 (0.6-1.2) mg/dl Est Cr Clr Drug Dosing 89.5 ml/min Est GFR ( Amer) 109.7 ml/min Est GFR (Non-Af Amer) 94.6 ml/min BUN/Creatinine Ratio 19.4 (10-20) Glucose 317 H* (70-99(Fasting)) mg/dl POC Glucose 321 H* (70-99) mg/dl Lactate (0.4-2.0) mmol/L Calcium 9.3 (8.5-10.1) mg/dl Magnesium 1.4 L (1.7-2.4) mg/dl Total Bilirubin 0.2 (0.2-1.0) mg/dl AST 14 (13-39) U/L ALT 21 (7-52) U/L Alkaline Phosphatase 70 (34-104) U/L Total Protein 7.1 (6.0-8.3) gm/dl Albumin 4.1 (3.4-5.0) gm/dl Globulin 3.0 (2.5-4.0) gm/dl Albumin/Globulin Ratio 1.4 (0.9-2) TSH (0.300-4.500) uIu/ml Free T4 (0.61-1.60) ng/dl SARS-CoV-2, RNA, NAAT (NEGATIVE) 10/16/21 10/16/21 10/16/21 Range/Units 16:50 17:14 17:14 WBC (4.8-10.8) K/uL RBC (4.2-5.4) M/uL Hgb (12.0-16.0) g/dL Hct (37-47) % MCV (80-100) fL MCH (25-34) pg MCHC (32-36) g/dL RDW Std Deviation (36.4-46.3) fL RDW Coeff of Maris (11.5-14.5) % Plt Count (130-400) K/uL MPV (7.4-10.4) fL Immature Gran % (Auto) % Neut % (Auto) % Lymph % (Auto) % Cameron % (Auto) % Eos % (Auto) % Baso % (Auto) % Neut # (Auto) (1.4-6.5) K/uL Lymph # (Auto) (1.2-3.4) K/uL Cameron # (Auto) (0.11-0.59) K/uL Eos # (Auto) (0-0.5) K/uL Baso # (Auto) (0-0.2) K/uL Immature Gran # (Auto) (0.00-0.02) K/uL VBG pH 7.42 H (7.36-7.41) VBG pCO2 37 L (38-50) mmHg VBG pO2 64 mmHg VBG HCO3 24 mmol/L VBG O2 Saturation 92.7 % VBG Base Excess -0.4 mEq/L Barometric Pressure 733.9 mm/Hg Sodium (136-145) mmol/L Potassium (3.5-5.1) mmol/L Chloride (98-107) mmol/L Carbon Dioxide (21-32) mmol/L Anion Gap (3-11) BUN (6-23) mg/dl Creatinine (0.6-1.2) mg/dl Est Cr Clr Drug Dosing ml/min Est GFR ( Amer) ml/min Est GFR (Non-Af Amer) ml/min BUN/Creatinine Ratio (10-20) Glucose (70-99(Fasting)) mg/dl POC Glucose (70-99) mg/dl Lactate 5.5 H* (0.4-2.0) mmol/L Calcium (8.5-10.1) mg/dl Magnesium (1.7-2.4) mg/dl Total Bilirubin (0.2-1.0) mg/dl AST (13-39) U/L ALT (7-52) U/L Alkaline Phosphatase (34-104) U/L Total Protein (6.0-8.3) gm/dl Albumin (3.4-5.0) gm/dl Globulin (2.5-4.0) gm/dl Albumin/Globulin Ratio (0.9-2) TSH 0.111 L (0.300-4.500) uIu/ml Free T4 0.98 (0.61-1.60) ng/dl SARS-CoV-2, RNA, NAAT (NEGATIVE) 10/16/21 10/16/21 10/16/21 Range/Units 17:31 18:03 19:11 WBC (4.8-10.8) K/uL RBC (4.2-5.4) M/uL Hgb (12.0-16.0) g/dL Hct (37-47) % MCV (80-100) fL MCH (25-34) pg MCHC (32-36) g/dL RDW Std Deviation (36.4-46.3) fL RDW Coeff of Maris (11.5-14.5) % Plt Count (130-400) K/uL MPV (7.4-10.4) fL Immature Gran % (Auto) % Neut % (Auto) % Lymph % (Auto) % Cameron % (Auto) % Eos % (Auto) % Baso % (Auto) % Neut # (Auto) (1.4-6.5) K/uL Lymph # (Auto) (1.2-3.4) K/uL Cameron # (Auto) (0.11-0.59) K/uL Eos # (Auto) (0-0.5) K/uL Baso # (Auto) (0-0.2) K/uL Immature Gran # (Auto) (0.00-0.02) K/uL VBG pH (7.36-7.41) VBG pCO2 (38-50) mmHg VBG pO2 mmHg VBG HCO3 mmol/L VBG O2 Saturation % VBG Base Excess mEq/L Barometric Pressure mm/Hg Sodium (136-145) mmol/L Potassium (3.5-5.1) mmol/L Chloride (98-107) mmol/L Carbon Dioxide (21-32) mmol/L Anion Gap (3-11) BUN (6-23) mg/dl Creatinine (0.6-1.2) mg/dl Est Cr Clr Drug Dosing ml/min Est GFR ( Amer) ml/min Est GFR (Non-Af Amer) ml/min BUN/Creatinine Ratio (10-20) Glucose (70-99(Fasting)) mg/dl POC Glucose 205 H (70-99) mg/dl Lactate 4.2 H* (0.4-2.0) mmol/L Calcium (8.5-10.1) mg/dl Magnesium (1.7-2.4) mg/dl Total Bilirubin (0.2-1.0) mg/dl AST (13-39) U/L ALT (7-52) U/L Alkaline Phosphatase (34-104) U/L Total Protein (6.0-8.3) gm/dl Albumin (3.4-5.0) gm/dl Globulin (2.5-4.0) gm/dl Albumin/Globulin Ratio (0.9-2) TSH (0.300-4.500) uIu/ml Free T4 (0.61-1.60) ng/dl SARS-CoV-2, RNA, NAAT NEGATIVE (NEGATIVE) 10/16/21 Range/Units 20:04 WBC (4.8-10.8) K/uL RBC (4.2-5.4) M/uL Hgb (12.0-16.0) g/dL Hct (37-47) % MCV (80-100) fL MCH (25-34) pg MCHC (32-36) g/dL RDW Std Deviation (36.4-46.3) fL RDW Coeff of Maris (11.5-14.5) % Plt Count (130-400) K/uL MPV (7.4-10.4) fL Immature Gran % (Auto) % Neut % (Auto) % Lymph % (Auto) % Cameron % (Auto) % Eos % (Auto) % Baso % (Auto) % Neut # (Auto) (1.4-6.5) K/uL Lymph # (Auto) (1.2-3.4) K/uL Cameron # (Auto) (0.11-0.59) K/uL Eos # (Auto) (0-0.5) K/uL Baso # (Auto) (0-0.2) K/uL Immature Gran # (Auto) (0.00-0.02) K/uL VBG pH (7.36-7.41) VBG pCO2 (38-50) mmHg VBG pO2 mmHg VBG HCO3 mmol/L VBG O2 Saturation % VBG Base Excess mEq/L Barometric Pressure mm/Hg Sodium (136-145) mmol/L Potassium (3.5-5.1) mmol/L Chloride (98-107) mmol/L Carbon Dioxide (21-32) mmol/L Anion Gap (3-11) BUN (6-23) mg/dl Creatinine (0.6-1.2) mg/dl Est Cr Clr Drug Dosing ml/min Est GFR ( Amer) ml/min Est GFR (Non-Af Amer) ml/min BUN/Creatinine Ratio (10-20) Glucose (70-99(Fasting)) mg/dl POC Glucose 159 H (70-99) mg/dl Lactate (0.4-2.0) mmol/L Calcium (8.5-10.1) mg/dl Magnesium (1.7-2.4) mg/dl Total Bilirubin (0.2-1.0) mg/dl AST (13-39) U/L ALT (7-52) U/L Alkaline Phosphatase (34-104) U/L Total Protein (6.0-8.3) gm/dl Albumin (3.4-5.0) gm/dl Globulin (2.5-4.0) gm/dl Albumin/Globulin Ratio (0.9-2) TSH (0.300-4.500) uIu/ml Free T4 (0.61-1.60) ng/dl SARS-CoV-2, RNA, NAAT (NEGATIVE) Administered Medications Discontinued Medications Sodium Chloride (Nss 1000ml) 1,000 mls @ 999 mls/hr IV .Q1H1M COURTNEY Stop: 10/16/21 18:00 Last Infusion: 10/16/21 18:07 Dose: 0 mls/hr Documented by: [id number] Admin: 10/16/21 17:01 Dose: 999 mls/hr Documented by: [id number] Sodium Chloride (Nss 1000ml) 1,000 mls @ 999 mls/hr IV .Q1H1M ONE Stop: 10/16/21 18:47 Last Infusion: 10/16/21 20:11 Dose: 0 mls/hr Documented by: [id number] Admin: 10/16/21 18:05 Dose: 999 mls/hr Documented by: [id number] Lorazepam (Lorazepam 2 Mg/1 Ml Vial) 0.5 mg IV NOW STA Stop: 10/16/21 16:55 Last Admin: 10/16/21 17:07 Dose: 0.5 mg Documented by: [id number] Imaging Data Radiologist's Impression: Chest X-Ray 10/16/21 16:54 XR chest 1V portable HISTORY: 66 years-old Female weakness acute weakness COMPARISON: Chest radiograph 09/01/2021 TECHNIQUE: Portable AP view the chest FINDINGS: Cardiac silhouette is enlarged. Mild subsegmental bibasilar atelectasis. No pneu mothorax, pleural effusion, airspace consolidation or overt pulmonary edema. The bones of the chest appear grossly intact. IMPRESSION: Cardiomegaly without acute process. ACT 112: Negative or not required by law. The above report was generated using voice recognition software. It may contain grammatical, syntax or spelling errors. Electronically signed by: Ino Flanagan M.D. 10/16/2021 5:40 PM Discharge Plan Visit Data Chief Complaint: Hyperglycemia Stated Complaint: blood sugar issues, not sure if high or low,flaco ED Provider: Vikash Montalvo Discharge Problem: Hyperglycemia, Elevated lactic acid level, COVID-19 Prescriptions Prescriptions: No Action Lantus Solostar U-100 Insulin 100 unit/mL (3 mL) insulin pen 16 unit SQ QAM Qty: 2 RF: 3 (DME) FreeStyle Jose Francisco 14 Day Sensor Kit See Rx Instructions .ROUTE RF: 0 rosuvastatin 5 mg tablet 5 mg PO Q OTHER DAY RF: 0 (DME) pen needle, diabetic [BD Ultra-Fine Flores Pen Needle] 32 gauge x 5/32" needle See Rx Instructions miscellaneous .MEDSUPPLY Qty: 100 RF: 5 aspirin [Ecotrin Low Strength] 81 mg Tablet,Delayed Release (Dr/Ec) 81 mg PO QAM Qty: 30 RF: 0 docusate sodium [Colace] 100 mg Capsule 100 mg PO BID RF: 0 Trintellix 20 mg tablet 20 mg PO HS RF: 0 metformin 1,000 mg tablet 1,000 mg PO BID RF: 0 levothyroxine 137 mcg tablet 137 mcg PO QAM RF: 0 mirtazapine 30 mg tablet 30 mg PO HS RF: 0 aripiprazole [Abilify] 5 mg tablet 5 mg PO HS RF: 0 insulin lispro [Humalog KwikPen Insulin] 100 unit/mL insulin pen 0 sliding scale dose subcut TIDM RF: 0 ondansetron 4 mg tablet,disintegrating 4 mg PO Q8H PRN (Reason: nausea and vomiting) Qty: 6 RF: 0 Sore Throat (phenol) 1.4 % Aerosol,[place] 5 spray MT Q2H PRN (Reason: sore throat) Qty: 1 RF: 0 Cepacol Sore Throat (ramu-men) 15-3.6 mg Lozenge 1 hawk buccal Q8H PRN (Reason: sore throat) Qty: 30 RF: 0
[2021-10-16] MEDS ORDERED: LORazepam 2 MG/1 ML VIAL IV STA ×2 (16:54→23:39)
[2021-10-16] MEDS ORDERED: SODIUM CHLORIDE 0.9% 1000ML 1,000 ML IV SCH (17:00)
[2021-10-16 17:04] LABS: Basophils # (auto) 0.02 K/uL (0-0.2); Basophils % (auto) 0.2 %; Eosinophils # (auto) 0.16 K/uL (0-0.5); Eosinophils % (auto) 1.8 %; Hematocrit (blood only) 39.8 % (37-47); Hemoglobin 13.3 g/dL (12.0-16.0); Immature Granulocytes # (auto) 0.02 K/uL (0.00-0.02); Immature Granulocytes % (auto) 0.2 %; Lymphocytes # (auto) 3.46 K/uL (1.2-3.4); Lymphocytes % (auto) 38.9 %; Mean Corpuscular Hemoglobin 29.1 pg (25-34); Mean Corpuscular Hgb Conc 33.4 g/dL (32-36); Mean Corpuscular Volume 87.1 fL (80-100); Mean Platelet Volume 10.3 fL (7.4-10.4); Monocytes # (auto) 0.41 K/uL (0.11-0.59); Monocytes % (auto) 4.6 %; Neutrophils # (auto) 4.82 K/uL (1.4-6.5); Neutrophils % (auto) 54.3 %; Platelet Count 293 K/uL (130-400); RDW Coefficient of Variation 14.5 % (11.5-14.5); RDW Standard Deviation 46.1 fL (36.4-46.3); Red Blood Count 4.57 M/uL (4.2-5.4); White Blood Count 8.89 K/uL (4.8-10.8)
[2021-10-16 17:23] LABS: Base Excess VBG -0.4 mEq/L; Oxygen Saturation VBG 92.7 %; pH VBG 7.42 (7.36-7.41)
[2021-10-16 17:29] LABS: Albumin Globulin Ratio 1.4 (0.9-2); Albumin Level 4.1 gm/dl (3.4-5.0); BUN Creatinine Ratio 19.4 (10-20); Bilirubin,Total 0.2 mg/dl (0.2-1.0); Calcium 9.3 mg/dl (8.5-10.1); Creatinine Clr Calc Pharmacy 89.5 ml/min; Est GFR (African American) 109.7 ml/min; Est GFR (Non-African American) 94.6 ml/min; Magnesium 1.4 mg/dl (1.7-2.4); Potassium 4.2 mmol/L (3.5-5.1); Total Protein 7.1 gm/dl (6.0-8.3)
--- NOTE | 2021-10-16 17:42 | XRay Report ---
XR chest 1V portable HISTORY: 66 years-old Female weakness acute weakness COMPARISON: Chest radiograph 09/01/2021 TECHNIQUE: Portable AP view the chest FINDINGS: Cardiac silhouette is enlarged. Mild subsegmental bibasilar atelectasis. No pneumothorax, pleural eff usion, airspace consolidation or overt pulmonary edema. The bones of the chest appear grossly intact. IMPRESSION: Cardiomegaly without acute process. ACT 112: Negative or not required by law. The above report was generated using voice recognition software. It may contain grammatical, syntax o r spelling errors. Electronically signed by: Ino Flanagan M.D. 10/16/2021 5:40 PM
[2021-10-16 17:47] LABS: Thyroid Stimulating Hormone 0.111 uIu/ml (0.300-4.500)
[2021-10-16] MEDS ORDERED: SODIUM CHLORIDE 0.9% 1000ML 1,000 ML IV ONE (17:47)
[2021-10-16 18:23] LABS: T4 Free Thyroxine 0.98 ng/dl (0.61-1.60)
--- NOTE | 2021-10-16 21:13 | History & Physical Report ---
Date of Service October 16, 2021 Assessment & Plan (1) Hyperglycemia: Plan: Mostly elevated blood sugars after Covid in August. Does not meet criteria for HHS or DKA, but clearly sugars higher than her reported prior baseline. - S/p 2 L IVF in the ER - Continue IV fluids - Continue home insulin regimen (Lantus 14 units SQ QAM + sliding scale insulin), but will make sliding scale ACHS. - Glycemic consult to pharmacy to help titrate insulin regimen - natural resources extension educator consulted (2) Elevated lactic acid level: Plan: No indication of focal infection. Likely from metformin exacerbated by hypovolemia from hyperglycemia. - Hold metformin - IV fluids as above - Could consider rechecking lactate in 1-2 days to ensure clearance (3) T2DM (type 2 diabetes mellitus): Plan: Last A1c was 8.5% in 06/2021. - DM as above - Recheck A1c (4) Cerebrovascular disease: Plan: Patient reports CVA a few years ago. Cannot find exact date in chart. Has only been taking her aspirin every few days per patient. - Continue ASA 81 mg PO daily - Continue statin QOD (5) Postsurgical hypothyroidism: Plan: TSH is suppressed to 0.111 on admission with normal FT4. No recent change to her levothyroxine dosing, and patient reports compliance to me. - Lower levothyroxine to 125 mcg PO daily - Recheck TSH in 4 - 6 week. (6) Major depressive disorder, recurrent episode, severe with anxious distress: Plan: No SI/HI. Patient is fairly anxious. - Continue home aripiprazole, mirtazapine, and Trintellix (I did tell patient she will have to bring this in.) - Low-dose lorazepam PRN as last resort for anxiety (7) DVT prophylaxis: Plan: Lovenox 40 mg SQ daily History of Present Illness Primary Care Provider: Andry Kerr MD 66yo F w/ hx of CVA, DM who presents with hyperglycemia and lactic acidosis. Per patient, she got Covid in August of this year. She reports that prior to Covid, she had had good control of her blood sugars with her usual BS being ~120 - 150 mg/dL. Since Covid, she has had much worse control. Her blood sugars go as high as >400 and have dropped as low as 40. She did experience symptoms with the low blood sugar and ate crackers and peanut butter. The highs have been more frequent with her sugars often being >300, she reports. She reports she is still taking her Lantus 14 units SQ QAM. She reports her short-acting insulin is only for her "biggest meal," and therefore, she only takes it before dinner. Usually she takes about 4 - 6 units at that time. She reports that for about 1 month, she has had increasing fatigue, loss of appetite, increased thirst, some transient, diffuse nausea (usually when her sugars are >300), and felt more thirsty. She presented today because she was feeling especially unwell last night and hoped that she would feel better this morning, but she did not. Allergies Allergy/AdvReac Type Severity Reaction Status Date / Time cisapride Allergy Intermediate Hives Verified 10/16/21 18:12 doxycycline Allergy Intermediate Rash Verified 10/16/21 18:12 gadobutrol [From Gadavist] Allergy Intermediate Hives Verified 10/16/21 18:12 lansoprazole Allergy Intermediate Hives Verified 10/16/21 18:12 Penicillins Allergy Mild Rash Verified 10/16/21 18:12 tetracycline Allergy Mild Rash Verified 10/16/21 18:12 Home Medications Medication Instructions Recorded Confirmed Type levothyroxine 137 mcg tablet 137 mcg PO QAM 05/04/18 10/16/21 History mirtazapine 30 mg tablet 30 mg PO HS 05/04/18 10/16/21 History aspirin 81 mg tablet,delayed 81 mg PO QAM #30 tab 03/02/19 10/16/21 Rx release (Ecotrin Low Strength) docusate sodium 100 mg capsule 100 mg PO BID 06/06/19 10/16/21 History (Colace) vortioxetine 20 mg tablet 20 mg PO HS 06/06/19 10/16/21 History (Trintellix) metformin 1,000 mg tablet 1,000 mg PO BID 10/01/19 10/16/21 History aripiprazole 5 mg tablet (Abilify) 5 mg PO HS 10/30/19 10/16/21 History ondansetron 4 mg disintegrating 4 mg PO Q8H PRN #6 tab 12/28/20 10/16/21 Rx tablet flash glucose sensor (FreeStyle 06/16/21 06/16/21 History Jose Francisco 14 Day Sensor) pen needle, diabetic 32 gauge x #100 ea 06/16/21 06/16/21 Rx 5/32" (BD Ultra-Fine Flores Pen Needle) rosuvastatin 5 mg tablet 5 mg PO Q OTHER DAY 06/16/21 10/16/21 History benzocaine 15 mg-menthol 3.6 mg 1 hakw BUCCAL Q8H PRN #30 ea 08/18/21 10/16/21 Rx lozenges (Cepacol Sore Throat (benzocaine-menthol)) phenol 1.4 % mucosal aerosol spray 5 spray MT Q2H PRN #1 ml 08/18/21 10/16/21 Rx (Sore Throat (phenol)) insulin glargine 100 unit/mL (3 16 unit SQ QAM #2 box 09/26/21 10/16/21 Rx mL) subcutaneous pen (Lantus Solostar U-100 Insulin) insulin lispro 100 unit/mL 0 sliding scale dose SUBCUT TIDM 10/16/21 10/16/21 History subcutaneous pen (Humalog KwikPen (U-100) Insulin) Past Med/Surg History Medical History Abdominal pain Acute gastritis Altered mental status Anxiety Cervical dysplasia Chest pain Chest pain Constipation Diabetes Dizziness Dyslipidemia Fecal impaction GERD (gastroesophageal reflux disease) Gout H/O: stroke History of anemia HNP (herniated nucleus pulposus), lumbar Hyperglycemia Hyperglycemia Hyperlipidemia Hypertension Hypoglycemia Hypokalemia Hypotension Intractable low back pain Lactic acidemia Lower extremity weakness Lumbar stenosis with neurogenic claudication Major depressive disorder, recurrent episode, severe with anxious distress Nausea & vomiting Neurological deficit present Postsurgical hypothyroidism Suicide attempt T2DM (type 2 diabetes mellitus) Tachycardia Vertigo Wound, open, ear, external with complication Surgical History H/O cardiac catheterization H/O dilation and curettage H/O laparoscopy History of colposcopy with cervical biopsy History of dental surgery History of hysterectomy History of tonsillectomy History of total abdominal hysterectomy Previous back surgery Status post hysteroscopic ablation of endometrium Status post lumbar spine surgery for decompression of spinal cord Family History Mother , in her early 70s of some sort of cancer (patient not clear if it was breast cancer) Breast cancer Diabetes Grandmother Breast cancer Grandmother Breast cancer Unknown Colon cancer Father , Diet it age 78 of a myelodysplastic syndrome. He also had Vjxgaib-Zjakj-Rvjnm disease. Myelodysplasia (myelodysplastic syndrome) Txpurgz-Peufi-Xbxsm disease Heart disease Brother Fhoiudl-Nzzpd-Sshmm disease Other No pertinent family history in first degree relatives Social History Smoking Status: Never smoker Hx Alcohol Use: No Hx Substance Use: No Preferred Language: Kosovan Communication Ability: Effective Blood Bank Order Control Clerk Required: No Beliefs That Will Affect Care: None marital status: Life Partner Current Living Situation: Significant Other current occupational status: disabled current occupation: Patient used to work at [employer] for 23 years and then [employer] How many Children do You have: 2 other: Retired on disability from her back 3 years ago Feels Safe at Home: Yes Assistive Devices: Glasses and Walker Review of Systems Review of Systems: All systems reviewed & are unremarkable except as noted in HPI & below Physical Exam Constitutional: WD/WN, vitals as above Eyes: EOM intact bilaterally; no conjunctival abnormality ENMT: external ear and nose normal, oropharynx normal Neck: trachea midline, no thyromegaly normal visual inspection Respiratory: normal respiratory effort, lungs clear to auscultation no respiratory distress Cardiovascular: Rate/Rhythm: regular rhythm and + tachycardic Extremities: no edema Gastrointestinal (Abdomen): Inspection/Auscultation: abdomen normal to inspection; abdomen not distended Musculoskeletal: no cyanosis or clubbing, extremities motor strength 5/5 Skin: no rashes, warm and dry Neurologic: moves all extremities and awake Some tardive dyskinesia and tremor Psychiatric: Orientation: alert, oriented to person and cooperative Results & Data Results & Data ([facility]) Vital Signs (Past 12 Hours) Vital Signs Temp Pulse Pulse Resp BP BP Pulse Ox 10/16/21 20:30 109 H 17 148/99 H 97 10/16/21 20:00 105 H 23 132/85 97 10/16/21 19:30 107 H 20 134/92 96 10/16/21 19:20 108 H 20 98 10/16/21 19:10 108 H 20 99 10/16/21 18:30 109 H 20 147/105 H 97 10/16/21 17:29 108 H 20 131/97 96 10/16/21 17:19 111 H 23 95 10/16/21 16:55 117 H 42 H 95 10/16/21 16:29 36.5 C 133 H 20 174/104 H 97 Code Status & VTE Plan VTE Prophylaxis Plan VTE Prophylaxis will be ordered: Yes PG Care Time/CCT Total # of Minutes Spent Total Time Spent with Patient: Total time spent is greater than 50% in coordination of care (as documented) at patient's floor/unit and/or counseling patient: Coding Level of Care Code 31345 Initial Inpt Care Lvl 3 Diagnoses Hyperglycemia R73.9 Elevated lactic acid level R79.89 T2DM (type 2 diabetes mellitus) E11.9 Cerebrovascular disease I67.9 Postsurgical hypothyroidism E89.0 Major depressive disorder, recurrent episode, severe with anxious distress F33.2 DVT prophylaxis Z29.9
[2021-10-16] MEDS ORDERED: PHARMACY GLYCEMIC MGMT CONSULT PRN (22:30)
[2021-10-16] MEDS ORDERED: GLUCAGON FOR INJ 1 MG VIAL SQ PRN (22:30)
[2021-10-16] MEDS ORDERED: GLUCOSE 40% GEL 15 GM TUBE PO PRN (22:30)
[2021-10-16] MEDS ORDERED: ARIPiprazole 5 MG TAB PO SCH (22:30)
[2021-10-16] MEDS ORDERED: ONDANSETRON INJ 2 MG/ML 2 ML VIAL IV PRN (22:30)
[2021-10-16] MEDS ORDERED: MIRTAZAPINE TAB 15 MG TAB PO SCH (22:30)
[2021-10-16] MEDS ORDERED: ACETAMINOPHEN 325 MG TAB PO PRN (22:30)
[2021-10-16] MEDS ORDERED: GLUCOSE 10 TABS/TUBE PO PRN (22:30)
[2021-10-16] MEDS ORDERED: CARBOHYDRATES FOR HYPOGLYCEMIA PO PRN (22:30)
[2021-10-16] MEDS ORDERED: DEXTROSE 50% 50 ML SYRINGE IV PRN (22:30)
[2021-10-16] MEDS ORDERED: VORTIOXETINE HYDROBROMIDE PO SCH (23:00)
[2021-10-16] MEDS: DOCUSATE SODIUM 100 MG CAP PO SCH (23:06)
[2021-10-16] MEDS: INSULIN ASPART PER UNIT SC SCH (23:18)
[2021-10-16] MEDS: SODIUM CHLORIDE 0.9% 1000ML 1,000 ML IV SCH (23:41)
[2021-10-17] MEDS ORDERED: INSULIN ASPART PER UNIT SC SCH (04:00)
[2021-10-17] MEDS ORDERED: LEVOTHYROXINE SODIUM 125 MCG TABLET PO SCH (06:30)
[2021-10-17 07:55] LABS: Hematocrit (blood only) 33.8 % (37-47); Mean Corpuscular Hemoglobin 28.5 pg (25-34); Mean Corpuscular Hgb Conc 32.5 g/dL (32-36); Mean Corpuscular Volume 87.6 fL (80-100); Platelet Count 231 K/uL (130-400); RDW Coefficient of Variation 14.5 % (11.5-14.5); RDW Standard Deviation 46.2 fL (36.4-46.3); Red Blood Count 3.86 M/uL (4.2-5.4); White Blood Count 7.05 K/uL (4.8-10.8)
[2021-10-17 08:22] LABS: BUN Creatinine Ratio 19.1 (10-20); Calcium 8.3 mg/dl (8.5-10.1); Creatinine Clr Calc Pharmacy 117.8 ml/min; Est GFR (African American) 120.1 ml/min; Est GFR (Non-African American) 103.7 ml/min; Magnesium 1.3 mg/dl (1.7-2.4); Potassium 3.4 mmol/L (3.5-5.1)
[2021-10-17] MEDS: DOCUSATE SODIUM 100 MG CAP PO SCH (08:24)
[2021-10-17] MEDS: INSULIN ASPART PER UNIT SC SCH ×3 (08:25→17:24)
[2021-10-17] MEDS: SODIUM CHLORIDE 0.9% 1000ML 1,000 ML IV SCH (08:27)
[2021-10-17 08:54] LABS: Estimated Average Glucose 163 mg/dl; Hemoglobin A1C 7.3 % (4.5-5.6)
[2021-10-17] MEDS ORDERED: ASPIRIN 81 MG ECTAB PO SCH (09:00)
[2021-10-17] MEDS ORDERED: INSULIN GLARGINE SOLOSTAR 100 UNITS/ML 3 ML PEN SC SCH (09:00)
[2021-10-17] MEDS ORDERED: ROSUVASTATIN CALCIUM 5 MG TAB PO SCH (09:00)
[2021-10-17] MEDS ORDERED: POTASSIUM CHLORIDE CRTAB 20 MEQ TABCR PO ONE (09:00)
[2021-10-17] MEDS ORDERED: ENOXAPARIN INJ 40 MG/0.4 ML SYR SQ SCH (09:00)
--- NOTE | 2021-10-17 09:19 | Electrocardiogram Report ---
Test Reason : Blood Pressure : / mmHG Vent. Rate : 111 BPM Atrial Rate : 111 BPM P-R Int : 152 ms QRS Dur : 072 ms QT Int : 324 ms P-R-T Axes : 047 038 061 degrees QTc Int : 440 ms Poor data quality, interpretation may be adversely affected Sinus tachycardia Otherwise normal ECG When compared with ECG of 23-SEP-2021 21:03, No significant change Confirmed by Maxwell Carrasco ([id number]) on 10/17/2021 9:19:12 AM Referred By: REFERRED SELF Confirmed By:Maxwell Carrasco
[2021-10-17] MEDS: MAGNESIUM SULFATE / D5W 1 GM/100 ML BAG IV SCH ×4 (09:30→16:36)
--- NOTE | 2021-10-17 12:12 | Pharmacy Report ---
Pharmacy Glycemic Short Note 2 - Date of Service October 17, 2021 - Glycemic Short BSG Results (Last 24 hours): 10/16/21 10/16/21 10/16/21 16:32 16:50 18:03 Glucose 317 H* POC Glucose 321 H* 205 H 10/16/21 10/16/21 10/17/21 20:04 22:28 07:12 Glucose 94 POC Glucose 159 H 151 H 10/17/21 10/17/21 07:45 11:41 Glucose POC Glucose 99 135 H OUTPATIENT ANTIDIABETIC REGIMEN: * Lantus 16 units daily * sliding scale humalog * HbA1C = 7.3% (10/17/21) ASSESSMENT: * Ms Trinidad is a 66 y/o F with a PMH of T2DM who presents with hyperglycemia and lactic acidosis. HbA1C is down to 7.3% from 8.5% in 06/2021. * BSGs yesterday were 321-205-151 mg/dL. Fasting this morning was 99 mg/dL. * Will start home dose of Lantus 16 units and see how this fares. * Novolog weight-based stress of 2. PLAN FOR INPATIENT GLYCEMIC CONTROL: * Hold outpatient oral diabetes medications * Basal insulin * Lantus 16 units SQ daily * Bolus insulin * NovoLog per scale ACHS or Q6hrs while NPO * Goal Range: Low 110 mg/dL - High 140 mg/dL * Correction Factor: 30 mg/dL/unit * Nutritional / Prandial insulin per carb ratio of 1 unit per 10 grams CHO consumed
--- NOTE | 2021-10-17 15:30 | Discharge Summary ---
Date of Service October 17, 2021 Admission HPI Per Admitting Provider 66yo F w/ hx of CVA, DM who presents with hyperglycemia and lactic acidosis. Per patient, she got Covid in August of this year. She reports that prior to Covid, she had had good control of her blood sugars with her usual BS being ~120 - 150 mg/dL. Since Covid, she has had much worse control. Her blood sugars go as high as >400 and have dropped as low as 40. She did experience symptoms with the low blood sugar and ate crackers and peanut butter. The highs have been more frequent with her sugars often being >300, she reports. She reports she is still taking her Lantus 14 units SQ QAM. She reports her short-acting insulin is only for her "biggest meal," and therefore, she only takes it before dinner. Usually she takes about 4 - 6 units at that time. She reports that for about 1 month, she has had increasing fatigue, loss of appetite, increased thirst, some transient, diffuse nausea (usually when her sugars are >300), and felt more thirsty. She presented today because she was feeling especially unwell last night and hoped that she would feel better this morning, but she did not. Principal Diagnosis post covid malaise, "pseudohyperglycemia" due to closer vigilance Discharge Exam aao pleasantly anxious nad. heent nc at mmm breathing unlabored no accesssory muscles good effort skin no rashes no pallor or icterus neuro no focal deficits Discharge Data Allergies Allergy/AdvReac Type Severity Reaction Status Date / Time cisapride Allergy Intermediate Hives Verified 10/16/21 18:12 doxycycline Allergy Intermediate Rash Verified 10/16/21 18:12 gadobutrol [From Gadavist] Allergy Intermediate Hives Verified 10/16/21 18:12 lansoprazole Allergy Intermediate Hives Verified 10/16/21 18:12 Penicillins Allergy Mild Rash Verified 10/16/21 18:12 tetracycline Allergy Mild Rash Verified 10/16/21 18:12 Consultations 10/16/21 20:05 ED Decision to Admit Stat 10/16/21 20:21 ED Decision to Admit Stat Hospital Course (1) Hyperglycemia: -after careful discussion and detailed hx --> she actually has been checking sugars far more often since COVID. A1c is actually better (7.3) than it has been in years. suspect she is seeing higher sugars because she is checking more often and almost certainly seeing postprandial highs that she previously would have missed (HPI of pre-covid running mostly 120-150 at a time that her A1c was in mid 8's suggests checking predominantly, if not exclusively, fasting/premeal sugars) -discussed this with pt, also discussed normal prandial glycemic physiology, as well as simple/starchy/sugary carbs being what will predominantly drive high sugars -given that she also has lows that she doesn't entirely understand - strongly suspect that her fairly static bolus for one meal may be creating some insulin- carb mismatches leading to lows ---->initial thoughts for further management were to educate on carb counting and move to a true basal/bolus regimen, or add an oral - since her A1c is actually very close to goal, to simplify med regimen for her - will drop tqj-jqkn-i-day log bolus and initiate SGLT-2; for now continue lantus and metfor min (see below under lactic level in regards to metformin) -work on minimizing simple/starchy/sugary carbs and then hopefully can potentially reduce meds overall -close outpt f/u (2) Malaise: given that she has a nonspecific malaise that she relates loosely back to since she had covid - suspect this is probably more attributable to slow recovery from covid than from sugars (annemarie since sugar better controlled than before) (3) Elevated lactic acid level: No indication of focal infection. unless nonspecific malaise relates to this - no clear symptoms to attribute. could theoretically be due to metformin, but also frequently note elevated lactate levels in the ER raising question of false positive. since metformin generally a beneficial first line agent for DM2, and not clear that lactate relates to this, and questionable sx at best (and more likely no sx) from this --> for now resume metformin, follow up closely, outpt lactate level this week --> if recurrently /persistently high then can consider stopping (4) T2DM (type 2 diabetes mellitus): see above, A1c now 7.3 (5) Cerebrovascular disease: home on home meds (6) Postsurgical hypothyroidism: low TSH, normal free T4. nonspecific; repeat TSH ~4wks (7) Major depressive disorder, recurrent episode, severe with anxious distress: home on home meds (8) DVT prophylaxis: Lovenox 40 mg SQ daily Total Time Total Time Spent Total Time Spent (In Minutes): >30 Discharge Plan Discharge Items Patient Disposition: Home - Self-Care Reason For Visit: HYPERGLYCEMIA, LACTIC ACIDOSIS Discharge Diagnosis: Hyperglycemia Activity: Per Instructions section Non-emergency contact: Primary Care Provider Call non-emergency contact if: you have any medication questions and your symptoms worsen Follow-up/Referrals: Andry Kerr MD [Primary Care Provider] - 10/24/21 9:10 am Diet: Carb Consistent or DM2 Addtl Attending Provider Instructions: You were seen in the hospital for elevated blood sugars. While you were here we recommended that you discontinue your mealtime insulin. We also recommend that you add Invokana, a medication that will help you urinate excess glucose to help control your sugars. You will continue to take your Metformin as well as your long acting insulin. Your A1c was actually pretty good at 7.3, but it seems that your sugars have been fluctuating very much with lows in the 50s and highs in the 350s to 400 which is averaging out. The idea with taking away her mealtime insulin at one of your meals and replacing it with a daily oral medication is that it would decrease the amount of fluctuation in your daytime sugars and hopefully reduce the amount of hypoglycemic episodes as well as reducing the severity of the sugar spikes after eating. Please follow-up with your primary care provider within 1 week of discharge to monitor how you are doing on the medication. This new medication will be sent to your pharmacy. It has been a pleasure to be a part of your care and we wish you the best in your health and your recovery. Pending Studies at Discharge: No Stand-Alone Forms: [facility] Smoking Cessation Medications and DC Order Prescriptions: New Invokana 100 mg tablet 100 mg PO QAM Qty: 30 RF: 1 Continued Lantus Solostar U-100 Insulin 100 unit/mL (3 mL) insulin pen 16 unit SQ QAM Qty: 2 RF: 3 (DME) FreeStyle Jose Francisco 14 Day Sensor Kit See Rx Instructions .ROUTE RF: 0 rosuvastatin 5 mg tablet 5 mg PO Q OTHER DAY RF: 0 (DME) pen needle, diabetic [BD Ultra-Fine Flores Pen Needle] 32 gauge x 5/32" needle See Rx Instructions miscellaneous .MEDSUPPLY Qty: 100 RF: 5 aspirin [Ecotrin Low Strength] 81 mg Tablet,Delayed Release (Dr/Ec) 81 mg PO QAM Qty: 30 RF: 0 docusate sodium [Colace] 100 mg Capsule 100 mg PO BID RF: 0 Trintellix 20 mg tablet 20 mg PO HS RF: 0 metformin 1,000 mg tablet 1,000 mg PO BID RF: 0 levothyroxine 137 mcg tablet 137 mcg PO QAM RF: 0 mirtazapine 30 mg tablet 30 mg PO HS RF: 0 aripiprazole [Abilify] 5 mg tablet 5 mg PO HS RF: 0 ondansetron 4 mg tablet,disintegrating 4 mg PO Q8H PRN (Reason: nausea and vomiting) Qty: 6 RF: 0 Sore Throat (phenol) 1.4 % Aerosol,[place] 5 spray MT Q2H PRN (Reason: sore throat) Qty: 1 RF: 0 Cepacol Sore Throat (ramu-men) 15-3.6 mg Lozenge 1 hawk buccal Q8H PRN (Reason: sore throat) Qty: 30 RF: 0 Discontinued insulin lispro [Humalog KwikPen Insulin] 100 unit/mL insulin pen 0 sliding scale dose subcut TIDM RF: 0 Discharge Orders: Discharge Order (Routine); Ordered 10/17/21 Ordered By: Ramin Dooley Admission Data Admit Date/Time: 10/16/21 20:56 Attending Provider: Nik Hyatt Admit Provider: Rolly Bacon Primary Care Provider: Andry Kerr Other Providers: Rolly Bacon Coding Level of Care Code D/C DAY MANAGEMENT >30 MINS Diagnoses Hyperglycemia R73.9 Elevated lactic acid level R79.89 T2DM (type 2 diabetes mellitus) E11.9 Cerebrovascular disease I67.9 Postsurgical hypothyroidism E89.0 Major depressive disorder, recurrent episode, severe with anxious distress F33.2 DVT prophylaxis Z29.9 Malaise R53.81
== END 2021-10-17 18:58 | disposition home or self-care (01) | DRG 638 ==
LOC: ED 16:24 → 2W 20:56 → INTOOBSV 20:56 → SUATTDRO 20:56 → 2W 22:08

== ENCOUNTER 2022-09-24 15:40 | Inpatient (IN) ==
[2022-09-24] MEDS ORDERED: SODIUM CHLORIDE 0.9% 1000ML 1,000 ML IV ONE ×2 (15:58→17:13)
[2022-09-24] MEDS ORDERED: ONDANSETRON INJ 2 MG/ML 2 ML VIAL IV STA (15:59)
--- NOTE | 2022-09-24 16:09 | Emergency Department Note ---
Impression & Plan Nausea & vomiting, Elevated lactic acid level, Atrial tachycardia, Abdominal pain ED Provider Note NAME: JONATHAN TOVAR AGE: 67 SEX: F : 1955 ARRIVES VIA: Ambulance INFORMANT: Patient ED PROVIDER(S): Nik Chambers DO CHIEF COMPLAINT: abdominal pain and vomiting HPI: Patient is a 67-year-old female who presents to the ER for abdominal pain associate with nausea and vomiting. Symptoms started within the past 24 hours. No diarrhea. No sick contacts that she is aware of. No headache or change in vision. No chest pain or shortness of breath. She does have an extensive history of previous CVA, hyperlipidemia, GERD and diabetes. She cannot keep anything down currently including her medications. PAST MEDICAL HISTORY:See Below PAST SURGICAL HISTORY:See Below FAMILY HISTORY:See Below SOCIAL HISTORY:See Below HOME MEDICATIONS:See Below ALLERGIES:See Below VITALS:See Below PHYSICAL EXAMINATION: GENERAL: Sitting up in bed, alert, chronically ill-appearing, disheveled EYE EXAM: normal conjunctiva. OROPHARYNX: no exudate, no erythema, lips, buccal mucosa, and tongue normal and mucous membranes are moist NECK: supple, no nuchal rigidity, no adenopathy, non-tender LUNGS: Clear to auscultation. Normal chest wall mechanics HEART: Tachycardic, S1 normal and S2 normal ABDOMEN: abdomen soft, tender palpation left mid abdomen, normo-active bowel sounds, no masses, no rebound or guarding. ities are grossly normal. LOWER EXTREMITIES: No pitting edema. NEURO EXAM: Normal sensorium, cranial nerves II-XII grossly intact, normal speech. MEDICAL DECISION MAKING: Patient is a 67-year-old female who presents to the ER for nausea vomiting and diarrhea. She is found to be tachycardic. IV was established blood work was obtained. Labs show leukocytosis 11,000. No significant anemia. BMP was unremarkable with exception of slightly elevated glucose at 217. Lactic acid was mildly elevated at 2.4. ALT mildly elevated at 116. T. bili was normal. Troponin was negative. Lipase normal. No chest pain or shortness of breath. UA does suggest dehydration. Flu COVID and RSV was negative. Chest x-ray unremarkable. CT abdomen pelvis showed no acute pathology. She was given 1 L IV fluids and her heart rate trended down to the 120s. Question A-fib versus sinus tach consequently repeat EKG was performed which showed a heart rate which was slowing down into the 120s and appeared to be more consistent with a sinus. External records were reviewed. Triage Nursing notes reviewed. Limited review of prior medical records performed Vital Signs: reviewed and remarkable for tachy Differential diagnosis: Differential diagnoses includes but is not limited to gastritis, peptic ulcer disease, GERD, gallbladder disease, pancreatitis, small bowel obstruction, appendicitis, diverticulitis, hernia, urinary tract infection, torsion, perforation, trauma, infectious. ER treatment provided: See below Diagnostics interpreted by me include EKG and cardiac monitoring as listed below: -Cardiac Monitoring: An order was placed for continuous cardiac monitoring. The monitor shows a rate of 132 with sinus rhythm. -ECG: Sinus tachycardia rate of 143 Normal axis No PVCs Nonspecific ST wave changes QTc 432 -Laboratory studies:Interpreted by me as stated above in MDM and shown below. Imaging studies: Xrays: As interpreted by me: Portable AP upright 1 view of the chest per my read shows no focal infiltrate CTs show: CT abdomen pelvis shows no acute pathology per radiology Consultation(s): Discussed with Dr. Villa for further evaluation treatment and management Procedures:none Critical Care: None Past Med/Surg History Medical History (Updated 09/24/22 @ 18:25 by Nik Chambers DO) Abdominal pain Acute gastritis Altered mental status Anxiety Cervical dysplasia Chest pain Chest pain Constipation Diabetes Dizziness Dyslipidemia Elevated lactic acid level Fecal impaction GERD (gastroesophageal reflux disease) Gout H/O: stroke History of anemia HNP (herniated nucleus pulposus), lumbar Hyperglycemia Hyperglycemia Hyperglycemia Hyperlipidemia Hypertension Hypoglycemia Hypokalemia Hypotension Hypothyroidism Intractable low back pain Lactic acidemia Lower extremity weakness Lumbar stenosis with neurogenic claudication Major depressive disorder, recurrent episode, severe with anxious distress Nausea & vomiting Neurological deficit present Postsurgical hypothyroidism Suicide attempt T2DM (type 2 diabetes mellitus) Tachycardia Vertigo Wound, open, ear, external with complication Surgical History H/O cardiac catheterization H/O dilation and curettage H/O laparoscopy History of colposcopy with cervical biopsy History of dental surgery History of hysterectomy History of tonsillectomy History of total abdominal hysterectomy Previous back surgery Status post hysteroscopic ablation of endometrium Status post lumbar spine surgery for decompression of spinal cord Family History Mother , in her early 70s of some sort of cancer (patient not clear if it was breast cancer) Breast cancer Diabetes Grandmother Breast cancer Grandmother Breast cancer Unknown Colon cancer Father , Diet it age 78 of a myelodysplastic syndrome. He also had Qmfhpxc-Wcqrz-Rvqao disease. Myelodysplasia (myelodysplastic syndrome) Cnqiyql-Wiwjv-Iobvy disease Heart disease Brother Kofiirf-Eruio-Aspwt disease Other No pertinent family history in first degree relatives Social History Smoking Status: Never smoker Hx Alcohol Use: No Hx Substance Use: No Preferred Language: Paragu[place] Communication Ability: Effective Collar Cutter Required: No Beliefs That Will Affect Care: None marital status: significant other Current Living Situation: Significant Other current occupational status: disabled current occupation: Patient used to work at [employer] for 23 years and then [employer] How many Children do You have: 2 other: Retired on disability from her back 3 years ago Feels Safe at Home: Yes Assistive Devices: Cane and Walker Allergies Allergies Allergy/AdvReac Type Severity Reaction Status Date / Time cisapride Allergy Intermediate Hives Verified 09/24/22 16:19 doxycycline Allergy Intermediate Rash Verified 09/24/22 16:19 gadobutrol [From Gadavist] Allergy Intermediate Hives Verified 09/24/22 16:19 lansoprazole Allergy Intermediate Hives Verified 09/24/22 16:19 Penicillins Allergy Mild Rash Verified 09/24/22 16:19 tetracycline Allergy Mild Rash Verified 09/24/22 16:19 Home Meds Home Medications Medication Instructions Recorded Confirmed mirtazapine 30 mg tablet 30 mg PO HS 05/04/18 09/24/22 vortioxetine 20 mg tablet 20 mg PO QPM 06/06/19 09/24/22 (Trintellix) flash glucose sensor (FreeStyle 06/16/21 09/24/22 Jose Francisco 14 Day Sensor kit) pen needle, diabetic 32 gauge x 10/18/21 09/24/22 532" (BD Ultra-Fine Flores Pen Needle) docusate sodium 100 mg capsule 100 mg PO BID PRN Constipation 01/12/22 09/24/22 (Colace) ergocalciferol (vitamin D2) 1,250 1,250 mcg PO WK 03/24/22 09/24/22 mcg (50,000 unit) capsule insulin lispro 100 unit/mL 2 unit subcut QDL PRN DEPENDS ON 04/03/22 09/24/22 subcutaneous pen (Humalog KwikPen BSG (U-100) Insulin) brexpiprazole 1 mg tablet (Rexulti) 1 mg PO HS 04/08/22 09/24/22 insulin glargine 100 unit/mL (3 16 unit subcut QAM 09/24/22 09/24/22 mL) subcutaneous pen (Basaglar KwikPen U-100 Insulin) levothyroxine 112 mcg tablet 112 mcg PO DAILYBB 09/24/22 09/24/22 Previous Rx's Medication Instructions Recorded aspirin 81 mg tablet,delayed 81 mg PO QAM #30 tabs 03/02/19 release (Ecotrin Low Strength) canagliflozin 100 mg tablet 100 mg PO QAM #30 tabs 08/26/22 (Invokana) metformin 1,000 mg tablet 1,000 mg PO BID #180 tabs 09/06/22 Results & Data (ED) Vital Signs Vital Signs - 24 hr 09/24/22 16:25 09/24/22 16:31 09/24/22 17:03 Temperature 36.6 C Temperature Source Oral Pulse Rate 133 H 133 H 127 H Pulse Rhythm Regular Regular Pulse Strength Normal Respiratory Rate 20 20 Respiratory Effort / Characteristics Non-Labored Spontaneous Respiratory Depth Normal Respiratory Pattern Regular Blood Pressure 125/69 Blood Pressure Mean 87 Blood Pressure Position Lying Pulse Oximetry 94 94 Oxygen Delivery Method Room Air Room Air Sepsis Recent Fever Within 48 Hours No Sepsis New/Unexplained Change in Mental Status N/A Sepsis Action Taken by Nursing No Action Required Laboratory Data 09/24/22 16:00 09/24/22 16:00 Lab Results 09/24/22 09/24/22 09/24/22 Range/Units 16:00 16:00 16:03 WBC 11.40 H (4.8-10.8) K/ul RBC 4.88 (4.20-5.40) M/uL Hgb 14.2 (12.0-16.0) g/dl POC Hgb 15.3 (12.0-16.0) g/dl Hct 42.8 (37.0-47.0) % POC Hct 45 (37-47) % MCV 87.7 (80.0-100.0) fL MCH 29.1 (25.0-34.0) pg MCHC 33.2 (32.0-36.0) g/dL RDW Std Deviation 47.0 H (36.4-46.3) fL RDW Coeff of Maris 14.7 H (11.5-14.5) % Plt Count 261 (130-400) K/uL MPV 10.3 (9.4-12.4) fL Immature Gran % (Auto) 0.4 % Neut % (Auto) 87.4 % Lymph % (Auto) 6.6 % Meade % (Auto) 4.2 % Eos % (Auto) 1.2 % Baso % (Auto) 0.2 % Neut # (Auto) 9.97 H (1.40-6.50) K/uL Lymph # (Auto) 0.75 L (1.2-3.4) K/uL Meade # (Auto) 0.48 (0.11-0.59) K/uL Eos # (Auto) 0.14 (0-0.50) K/uL Baso # (Auto) 0.02 (0-0.2) K/uL Immature Gran # (Auto) 0.04 (0.01-0.20) K/uL D-Dimer (0-500) ug/L FEU POC Sodium 139 (135-144) mmol/L Sodium 139 (136-145) mmol/L POC Potassium 4.2 (3.3-5.0) mmol/L Potassium 4.3 (3.5-5.1) mmol/L POC Chloride 105 (101-112) mmol/L Chloride 104 (98-107) mmol/L Carbon Dioxide 23 (21-32) mmol/L POC Total CO2 23 L (24-31) mmol/L Anion Gap 12 H (3-11) POC Anion Gap 16.0 (16-25) mmol/L POC BUN 18 (7-18) mg/dl BUN 18 (6-23) mg/dl Creatinine 0.65 (0.6-1.2) mg/dl POC Creatinine 0.5 L (0.6-1.3) mg/dl Est Cr Clr Drug Dosing 85.4 ml/min Est GFR ( Amer) 107.2 ml/min Est GFR (Non-Af Amer) 92.5 ml/min BUN/Creatinine Ratio 27.7 H (10-20) Glucose 217 H (70-99(Fasting)) mg/dl POC Glucose (other) 216 H (70-99) mg/dl Lactate (0.4-2.0) mmol/L Calcium 9.7 (8.5-10.1) mg/dl POC Ioniz Calcium Luke 1.16 (1.12-1.32) mmol/l Magnesium 1.4 L (1.7-2.4) mg/dl Total Bilirubin 0.7 (0.2-1.0) mg/dl AST 39 (13-39) U/L ALT 116 H (7-52) U/L Alkaline Phosphatase 142 H (34-104) U/L Troponin I High Sens 5.2 (0-14) pg/ml Total Protein 7.4 (6.0-8.3) gm/dl Albumin 4.1 (3.4-5.0) gm/dl Globulin 3.3 (2.5-4.0) gm/dl Albumin/Globulin Ratio 1.2 (0.9-2) Lipase 37 (11-82) U/L Urine Color Urine Appearance (Clear) Urine pH (4.5-7.5) Ur Specific [place] (1.000-1.030) Urine Protein (Negative) Urine Glucose (UA) (Negative) Urine Ketones (Negative) Urine Blood (Negative) Urine Nitrite (Negative) Urine Bilirubin (Negative) Urine Urobilinogen (Negative) Ur Leukocyte Esterase (Negative) Urine WBC (Auto) (0-5) /hpf Urine RBC (Auto) (0-4) /hpf U Hyaline Cast (Auto) (0-5) /lpf U Epithel Cells (Auto) (0-5) /lpf Urine Bacteria (Auto) (Negative) SARS-CoV-2 (PCR) (Negative) Influenza Type A (PCR) (Neg) Influenza Type B (PCR) (Neg) RSV (RT-PCR) (Neg) 09/24/22 09/24/22 09/24/22 Range/Units 16:18 16:50 17:24 WBC (4.8-10.8) K/ul RBC (4.20-5.40) M/uL Hgb (12.0-16.0) g/dl POC Hgb (12.0-16.0) g/dl Hct (37.0-47.0) % POC Hct (37-47) % MCV (80.0-100.0) fL MCH (25.0-34.0) pg MCHC (32.0-36.0) g/dL RDW Std Deviation (36.4-46.3) fL RDW Coeff of Maris (11.5-14.5) % Plt Count (130-400) K/uL MPV (9.4-12.4) fL Immature Gran % (Auto) % Neut % (Auto) % Lymph % (Auto) % Meade % (Auto) % Eos % (Auto) % Baso % (Auto) % Neut # (Auto) (1.40-6.50) K/uL Lymph # (Auto) (1.2-3.4) K/uL Meade # (Auto) (0.11-0.59) K/uL Eos # (Auto) (0-0.50) K/uL Baso # (Auto) (0-0.2) K/uL Immature Gran # (Auto) (0.01-0.20) K/uL D-Dimer (0-500) ug/L FEU POC Sodium (135-144) mmol/L Sodium (136-145) mmol/L POC Potassium (3.3-5.0) mmol/L Potassium (3.5-5.1) mmol/L POC Chloride (101-112) mmol/L Chloride (98-107) mmol/L Carbon Dioxide (21-32) mmol/L POC Total CO2 (24-31) mmol/L Anion Gap (3-11) POC Anion Gap (16-25) mmol/L POC BUN (7-18) mg/dl BUN (6-23) mg/dl Creatinine (0.6-1.2) mg/dl POC Creatinine (0.6-1.3) mg/dl Est Cr Clr Drug Dosing ml/min Est GFR ( Amer) ml/min Est GFR (Non-Af Amer) ml/min BUN/Creatinine Ratio (10-20) Glucose (70-99(Fasting)) mg/dl POC Glucose (other) (70-99) mg/dl Lactate 2.4 H* (0.4-2.0) mmol/L Calcium (8.5-10.1) mg/dl POC Ioniz Calcium Luke (1.12-1.32) mmol/l Magnesium (1.7-2.4) mg/dl Total Bilirubin (0.2-1.0) mg/dl AST (13-39) U/L ALT (7-52) U/L Alkaline Phosphatase (34-104) U/L Troponin I High Sens (0-14) pg/ml Total Protein (6.0-8.3) gm/dl Albumin (3.4-5.0) gm/dl Globulin (2.5-4.0) gm/dl Albumin/Globulin Ratio (0.9-2) Lipase (11-82) U/L Urine Color Yellow Urine Appearance Clear (Clear) Urine pH 5.0 (4.5-7.5) Ur Specific [place] > 1.045 H (1.000-1.030) Urine Protein 2+ H (Negative) Urine Glucose (UA) 3+ H (Negative) Urine Ketones 2+ H (Negative) Urine Blood Negative (Negative) Urine Nitrite Negative (Negative) Urine Bilirubin Negative (Negative) Urine Urobilinogen Negative (Negative) Ur Leukocyte Esterase Negative (Negative) Urine WBC (Auto) 1-5 (0-5) /hpf Urine RBC (Auto) 0-4 (0-4) /hpf U Hyaline Cast (Auto) 0 (0-5) /lpf U Epithel Cells (Auto) 10-20 H (0-5) /lpf Urine Bacteria (Auto) Negative (Negative) SARS-CoV-2 (PCR) NEGATIVE (Negative) Influenza Type A (PCR) Negative (Neg) Influenza Type B (PCR) Negative (Neg) RSV (RT-PCR) Negative (Neg) 09/24/22 Range/Units 17:48 WBC (4.8-10.8) K/ul RBC (4.20-5.40) M/uL Hgb (12.0-16.0) g/dl POC Hgb (12.0-16.0) g/dl Hct (37.0-47.0) % POC Hct (37-47) % MCV (80.0-100.0) fL MCH (25.0-34.0) pg MCHC (32.0-36.0) g/dL RDW Std Deviation (36.4-46.3) fL RDW Coeff of Maris (11.5-14.5) % Plt Count (130-400) K/uL MPV (9.4-12.4) fL Immature Gran % (Auto) % Neut % (Auto) % Lymph % (Auto) % Meade % (Auto) % Eos % (Auto) % Baso % (Auto) % Neut # (Auto) (1.40-6.50) K/uL Lymph # (Auto) (1.2-3.4) K/uL Meade # (Auto) (0.11-0.59) K/uL Eos # (Auto) (0-0.50) K/uL Baso # (Auto) (0-0.2) K/uL Immature Gran # (Auto) (0.01-0.20) K/uL D-Dimer 820 H* (0-500) ug/L FEU POC Sodium (135-144) mmol/L Sodium (136-145) mmol/L POC Potassium (3.3-5.0) mmol/L Potassium (3.5-5.1) mmol/L POC Chloride (101-112) mmol/L Chloride (98-107) mmol/L Carbon Dioxide (21-32) mmol/L POC Total CO2 (24-31) mmol/L Anion Gap (3-11) POC Anion Gap (16-25) mmol/L POC BUN (7-18) mg/dl BUN (6-23) mg/dl Creatinine (0.6-1.2) mg/dl POC Creatinine (0.6-1.3) mg/dl Est Cr Clr Drug Dosing ml/min Est GFR ( Amer) ml/min Est GFR (Non-Af Amer) ml/min BUN/Creatinine Ratio (10-20) Glucose (70-99(Fasting)) mg/dl POC Glucose (other) (70-99) mg/dl Lactate (0.4-2.0) mmol/L Calcium (8.5-10.1) mg/dl POC Ioniz Calcium Luke (1.12-1.32) mmol/l Magnesium (1.7-2.4) mg/dl Total Bilirubin (0.2-1.0) mg/dl AST (13-39) U/L ALT (7-52) U/L Alkaline Phosphatase (34-104) U/L Troponin I High Sens (0-14) pg/ml Total Protein (6.0-8.3) gm/dl Albumin (3.4-5.0) gm/dl Globulin (2.5-4.0) gm/dl Albumin/Globulin Ratio (0.9-2) Lipase (11-82) U/L Urine Color Urine Appearance (Clear) Urine pH (4.5-7.5) Ur Specific [place] (1.000-1.030) Urine Protein (Negative) Urine Glucose (UA) (Negative) Urine Ketones (Negative) Urine Blood (Negative) Urine Nitrite (Negative) Urine Bilirubin (Negative) Urine Urobilinogen (Negative) Ur Leukocyte Esterase (Negative) Urine WBC (Auto) (0-5) /hpf Urine RBC (Auto) (0-4) /hpf U Hyaline Cast (Auto) (0-5) /lpf U Epithel Cells (Auto) (0-5) /lpf Urine Bacteria (Auto) (Negative) SARS-CoV-2 (PCR) (Negative) Influenza Type A (PCR) (Neg) Influenza Type B (PCR) (Neg) RSV (RT-PCR) (Neg) Administered Medications Discontinued Medications Sodium Chloride (Nss 1000ml) 1,000 mls @ 999 mls/hr IV .Q1H1M ONE Stop: 09/24/22 16:58 Last Infusion: 09/24/22 18:20 Dose: 0 mls/hr Documented By: [id number] Admin: 09/24/22 16:15 Dose: 999 mls/hr Documented By: [id number] Sodium Chloride (Nss 1000ml) 1,000 mls @ 999 mls/hr IV .Q1H1M ONE Stop: 09/24/22 18:13 Last Admin: 09/24/22 17:53 Dose: 999 mls/hr Documented By: [id number] Ioversol (Optiray 350 100ml) 88 ml IV ONCE ONE Stop: 09/24/22 16:30 Last Admin: 09/24/22 16:29 Dose: 88 ml Documented By: [email or web address] Ioversol (Optiray 320 500ml) 109 ml IV ONCE ONE Stop: 09/24/22 19:08 Last Admin: 09/24/22 19:07 Dose: 109 ml Documented By: [email or web address] Metoclopramide HCl (Metoclopramide Hcl Inj 5 Mg/Ml 2 Ml Vial) 10 mg IV NOW STA Stop: 09/24/22 17:17 Last Admin: 09/24/22 17:53 Dose: 10 mg Documented By: [id number] Ondansetron HCl (Ondansetron Inj 2 Mg/Ml 2 Ml Vial) 4 mg IV NOW STA Stop: 09/24/22 16:00 Last Admin: 09/24/22 16:15 Dose: 4 mg Documented By: [id number] Imaging Data Radiologist's Impression: Abdomen/Pelvis CT 09/24/22 15:59 CT SCAN OF THE ABDOMEN AND PELVIS WITH IV CONTRAST CLINICAL HISTORY: Left lower quadrant abdominal pain. COMPARISON STUDY: Abdominal CT dated 09/08/2021. TECHNIQUE: Following the IV administration of 88 cc of Optiray 350, CT scan of the abdomen and pelvis is performed from the lung bases to the proximal femora. Images are reviewed in the axial, sagittal, and coronal planes. IV contrast was administered without complication. A dose lowering technique was utilized adhering to the principles of ALARA. CT DOSE: 568.40 mGy.cm FINDINGS: Lung bases: The heart is top normal in size and without pericardial effusion. The mitral annulus is calcified. A small hiatal hernia is noted. A 2 mm left lower lobe pulmonary nodule image #16 is unchanged from previous. The lung bases are otherwise clear. Liver: The contrast-enhanced liver is normal in size, contour, and attenuation. There is minimal central intrahepatic biliary ductal dilatation. The hepatic veins and portal veins are patent. Gallbladder: The gallbladder is distended but otherwise normal in appearance. Spleen: Normal in size and attenuation. Pancreas: The pancreas is moderately atrophic. Parenchymal calcifications suggest chronic pancreatitis. Adrenal glands: Unremarkable. Kidneys: The contrast enhanced kidneys are normal in size and without hydronephrosis. The kidneys enhance symmetrically. A 17 mm cyst is noted on the left. Abdominal vasculature: The abdominal aorta is normal in course and caliber noting moderate atherosclerotic calcification. Bowel: There are scattered colonic diverticula without CT evidence of acute diverticulitis. No bowel obstruction is seen. [id number] fecal retention is noted throughout the colon. The appendix is well-visualized and normal. Peritoneum: There is no intraperitoneal free air or abdominal ascites. There is a small fat-containing umbilical hernia. Lymphadenopathy: None. Pelvic viscera: The bladder is normal as visualized. The uterus is surgically absent. No adnexal lesion is seen. Skeletal structures: The skeletal structures are heterogeneously osteopenic. Postoperative and spondylotic change is noted in the lumbar spine. The left interpedicular screw at L4 is located lateral to the pedicle and vertebral body. Sclerotic change is noted in the sacroiliac joints. No lytic or blastic lesions are seen. IMPRESSION: 1. No acute infectious or inflammatory findings are identified in the abdomen or pelvis. 2. The gallbladder is distended. Correlate with clinical and laboratory findings. 3. Additional findings as above. ACT 112: Negative or not required by law. Electronically signed by: Bright Cruz M.D. 09/24/2022 4:54 PM Chest X-Ray 09/24/22 16:00 SINGLE VIEW CHEST CLINICAL HISTORY: Atypical chest pain FINDINGS: An AP, portable, upright chest radiograph is compared to study dated 04/08/2022. The cardiomediastinal silhouette is unremarkable. The lungs and pleural spaces are clear noting bibasilar atelectasis. No pneumothorax is seen. The skeletal structures are osteopenic. The bony thorax is grossly intact. IMPRESSION: No active disease in the chest. ACT 112: Negative or not required by law. Electronically signed by: Bright Cruz M.D. 09/24/2022 4:38 PM Discharge Plan Visit Data Chief Complaint: Tachycardia Stated Complaint: ILLNESS,TACHYCARDIA ED Provider: Nik Chambers Discharge Problem: Nausea & vomiting, Elevated lactic acid level, Atrial tachycardia, Abdominal p ain Forms Stand Alone Forms: [facility] [place] [employer] Prescriptions Prescriptions: No Action Invokana 100 mg tablet 100 mg PO QAM Qty: 30 1RF metformin 1,000 mg tablet 1,000 mg PO BID Qty: 180 1RF (DME) FreeStyle Jose Francisco 14 Day Sensor Kit See Rx Instructions .Route Rx Instructions: As directed (DME) pen needle, diabetic [BD Ultra-Fine Flores Pen Needle] 32 gauge x 5/32" needle See Rx Instructions miscellaneous .MEDSUPPLY Rx Instructions: Inject insulin once daily aspirin [Ecotrin Low Strength] 81 mg Tablet,Delayed Release (Dr/Ec) 81 mg PO QAM Qty: 30 0RF Trintellix 20 mg tablet 20 mg PO QPM docusate sodium [Colace] 100 mg capsule 100 mg PO BID PRN (Reason: Constipation) mirtazapine 30 mg tablet 30 mg PO HS ergocalciferol (vitamin D2) 1,250 mcg (50,000 unit) capsule 1,250 mcg PO WK Rx Instructions: insulin lispro [Humalog KwikPen Insulin] 100 unit/mL insulin pen 2 unit SUBCUT QDL PRN (Reason: DEPENDS ON BSG) Rexulti 1 mg tablet 1 mg PO HS levothyroxine 112 mcg tablet 112 mcg PO DAILYBB insulin glargine [Basaglar KwikPen U-100 Insulin] 100 unit/mL (3 mL) insulin pen 16 unit subcut QAM Referrals Referrals: Andry Kerr MD [Primary Care Provider] -
[2022-09-24 16:16] LABS: iSTAT Creatinine 0.5 mg/dl (0.6-1.3); iSTAT Hemoglobin 15.3 g/dl (12.0-16.0); iSTAT Ionized Calcium 1.16 mmol/l (1.12-1.32); iSTAT Potassium 4.2 mmol/L (3.3-5.0)
[2022-09-24 16:25] LABS: Basophils # (auto) 0.02 K/uL (0-0.2); Basophils % (auto) 0.2 %; Eosinophils # (auto) 0.14 K/uL (0-0.50); Eosinophils % (auto) 1.2 %; Hematocrit (blood only) 42.8 % (37.0-47.0); Hemoglobin 14.2 g/dl (12.0-16.0); Immature Granulocytes # (auto) 0.04 K/uL (0.01-0.20); Immature Granulocytes % (auto) 0.4 %; Lymphocytes # (auto) 0.75 K/uL (1.2-3.4); Lymphocytes % (auto) 6.6 %; Mean Corpuscular Hemoglobin 29.1 pg (25.0-34.0); Mean Corpuscular Hgb Conc 33.2 g/dL (32.0-36.0); Mean Corpuscular Volume 87.7 fL (80.0-100.0); Mean Platelet Volume 10.3 fL (9.4-12.4); Monocytes # (auto) 0.48 K/uL (0.11-0.59); Monocytes % (auto) 4.2 %; Neutrophils # (auto) 9.97 K/uL (1.40-6.50); Neutrophils % (auto) 87.4 %; Platelet Count 261 K/uL (130-400); RDW Coefficient of Variation 14.7 % (11.5-14.5); Red Blood Count 4.88 M/uL (4.20-5.40)
[2022-09-24] MEDS ORDERED: OPTIRAY 350 100ml IV ONE (16:29)
--- NOTE | 2022-09-24 16:40 | XRay Report ---
SINGLE VIEW CHEST CLINICAL HISTORY: Atypical chest pain FINDINGS: An AP, portable, upright chest radiograph is compared to study dated 04/08/2022. The cardiome diastinal silhouette is unremarkable. The lungs and pleural spaces are clear noting bibasilar atelect asis. No pneumothorax is seen. The skeletal structures are osteopenic. The bony thorax is grossly int act. IMPRESSION: No active disease in the chest. ACT 112: Negative or not required by law. Electronically signed by: Bright Cruz M.D. 09/24/2022 4:38 PM
[2022-09-24 16:43] LABS: Albumin Globulin Ratio 1.2 (0.9-2); Albumin Level 4.1 gm/dl (3.4-5.0); BUN Creatinine Ratio 27.7 (10-20); Bilirubin,Total 0.7 mg/dl (0.2-1.0); Calcium 9.7 mg/dl (8.5-10.1); Creatinine Clr Calc Pharmacy 85.4 ml/min; Est GFR (African American) 107.2 ml/min; Est GFR (Non-African American) 92.5 ml/min; Globulin 3.3 gm/dl (2.5-4.0); Potassium 4.3 mmol/L (3.5-5.1); Total Protein 7.4 gm/dl (6.0-8.3)
[2022-09-24 16:49] LABS: Troponin I High Sensitivity 5.2 pg/ml (0-14)
--- NOTE | 2022-09-24 16:56 | CT Scan Report ---
CT SCAN OF THE ABDOMEN AND PELVIS WITH IV CONTRAST CLINICAL HISTORY: Left lower quadrant abdominal pain. COMPARISON STUDY: Abdominal CT dated 09/08/2021. TECHNIQUE: Following the IV administration of 88 cc of Optiray 350, CT scan of the abdomen and pelvi s is performed from the lung bases to the proximal femora. Images are reviewed in the axial, sagittal , and coronal planes. IV contrast was administered without complication. A dose lowering technique wa s utilized adhering to the principles of ALARA. CT DOSE: 568.40 mGy.cm FINDINGS: Lung bases: The heart is top normal in size and without pericardial effusion. The mitral annulus is c alcified. A small hiatal hernia is noted. A 2 mm left lower lobe pulmonary nodule image #16 is unchan ged from previous. The lung bases are otherwise clear. Liver: The contrast-enhanced liver is normal in size, contour, and attenuation. There is minimal cent ral intrahepatic biliary ductal dilatation. The hepatic veins and portal veins are patent. Gallbladder: The gallbladder is distended but otherwise normal in appearance. Spleen: Normal in size and attenuation. Pancreas: The pancreas is moderately atrophic. Parenchymal calcifications suggest chronic pancreatiti s. Adrenal glands: Unremarkable. Kidneys: The contrast enhanced kidneys are normal in size and without hydronephrosis. The kidneys enh ance symmetrically. A 17 mm cyst is noted on the left. Abdominal vasculature: The abdominal aorta is normal in course and caliber noting moderate atheroscle rotic calcification. Bowel: There are scattered colonic diverticula without CT evidence of acute diverticulitis. No bowel obstruction is seen. Otbf-sn-aqzelvgn fecal retention is noted throughout the colon. The appendix is well-visualized and normal. Peritoneum: There is no intraperitoneal free air or abdominal ascites. There is a small fat-containin g umbilical hernia. Lymphadenopathy: None. Pelvic viscera: The bladder is normal as visualized. The uterus is surgically absent. No adnexal lesi on is seen. Skeletal structures: The skeletal structures are heterogeneously osteopenic. Postoperative and spondy lotic change is noted in the lumbar spine. The left interpedicular screw at L4 is located lateral to the pedicle and vertebral body. Sclerotic change is noted in the sacroiliac joints. No lytic or blast ic lesions are seen. IMPRESSION: 1. No acute infectious or inflammatory findings are identified in the abdomen or pelvis. 2. The gallbladder is distended. Correlate with clinical and laboratory findings. 3. Additional findings as above. ACT 112: Negative or not required by law. Electronically signed by: Bright Cruz M.D. 09/24/2022 4:54 PM
[2022-09-24 17:06] LABS: Appearance Urine Clear (Clear); Bacteria Urine Automated Negative (Negative); Bilirubin Urine Negative (Negative); Blood Urine Negative (Negative); Cast Urine Automated 0 /lpf (0-5); Color Urine Yellow; Glucose Urine UA 3+ (Negative); Ketones Urine 2+ (Negative); Leukocyte Esterase Urine Negative (Negative); Nitrite Urine Negative (Negative); Protein Urine 2+ (Negative); RBC Urine Automated 0-4 /hpf (0-4); Specific Gravity Urine > 1.045 (1.000-1.030); Urobilinogen Urine Negative (Negative)
[2022-09-24] MEDS ORDERED: METOCLOPRAMIDE HCL INJ 5 MG/ML 2 ML VIAL IV STA (17:16)
[2022-09-24 17:35] LABS: Influenza A virus by PCR Negative (Neg); Influenza B virus by PCR Negative (Neg); RSV by PCR Negative (Neg); SARS CoV2 RNA(COVID-19) Ceph NEGATIVE (Negative)
--- NOTE | 2022-09-24 17:36 | History & Physical Report ---
Date of Service September 24, 2022 Assessment & Plan (1) Nausea & vomiting: Plan: Nausea/vomiting CTA/P with mild gallbladder distention, otherwise unremarkable. Patient does not have right upper quadrant tenderness, and has not had pain with meals. Given nausea/vomiting, transaminitis, and medical gallbladder ultrasound for follow-up is pending DDx includes gastroenteritis, patient feels slightly improved since being in the ER Clinically is volume depleted, mucous membranes are dry Received 2 L NSS and Reglan Lactate elevated, repeat pending post fluids Magnesium ordered Additional Reglan deferred in the setting of tremors, Zofran as needed. Patient placed on LR. Trace leukocytosis 11.4 likely reactive 2/2 vomiting, will trend and follow for fevers. N.p.o. with fluids pending completion of gallbladder evaluation PPI, H2 bhavesh ordered (2) Hypothyroidism: Plan: TSH pending Continue Synthroid (3) Major depressive disorder, recurrent episode, severe with anxious distress: Plan: Continue home medications (4) T2DM (type 2 diabetes mellitus): Plan: With neuropathy Glargine/lispro held Switch to basal bolus based on 16 units basal home requirement Goal BSG [id number], dose reduce Lantus by 30% while n.p.o./clears (5) Diabetic peripheral neuropathy: Plan: At baseline (6) Hyperlipidemia: (7) GERD (gastroesophageal reflux disease): Plan: PPI (8) Tachycardia: Plan: Sinus tachycardia on admission Patient with inspiratory pain in her left lower rib No leg swelling. Tachycardia has slightly improved with fluids, but still remains disproportionately high. Can be reactive to nausea/vomiting GI illness, but with inspiratory pain will order D-dimer. If positive will follow-up with CTA at that time. In the meantime we will treat for volume depletion Plan DVT prophylaxis: Heparin Diet: N.p.o. pending gallbladder evaluation, advance if normal Disposition: PCU for tachycardia in case IV medications required CODE STATUS: Full code History of Present Illness Primary Care Provider: Andry Kerr MD 67yo female who presents with nausea and vomiting of 24 hours without diarrhea. Per history of CVA, hyperlipidemia, GERD, DM. Has not taken medications today due to nausea/vomiting. Has left lower quadrant abdominal pain. Mild leukocytosis of 11.40 Sodium/potassium normal Glucose 217 ALT 116, alk phos 142, AST 39. No prior transaminitis. Lipase is normal High-sensitivity troponin is normal Heart rate improving with IVF CT A/P shows distended gallbladder without overt cholecystitis Gallbladder ultrasound pending UA does not appear infected Viral panel pending Urszula reports that she has had 3 episodes of nonbloody nonbilious vomiting to day. She felt normal yesterday. Has some ache in her left lower/left upper quadrant which is worse with inspiration. No chest pain or chest pressure. She is not short of breath. Reports that she feels little shaky, but this is normal for her. No leg swelling. She notes chronic numbness and diabetic neuropathy in the lower extremities bilaterally and a little bit in her hands which has not changed. She has not had any diarrhea, no bloody bowel movements, no black bowel movements. She has not passed out. Denies syncope/presyncope. Does not think she has had any unusual foods, felt okay going to bed last night.Took DM medications yesterday and this AM. Has not taken midday medications. Denies history of gallbladder and liver problems. Does endorse that she feels a little bit anxious. Has felt her heart race before, does not feel it racing currently and does not have palpitations. Does feel very dehydrated and is thirsty. Medical History: Reviewed Medications: Reviewed Surgical History: Reviewed Allergies: Reviewed Social History: Reviewed Code Status: Full code Allergies Allergy/AdvReac Type Severity Reaction Status Date / Time cisapride Allergy Intermediate Hives Verified 09/24/22 16:19 doxycycline Allergy Intermediate Rash Verified 09/24/22 16:19 gadobutrol [From Gadavist] Allergy Intermediate Hives Verified 09/24/22 16:19 lansoprazole Allergy Intermediate Hives Verified 09/24/22 16:19 Penicillins Allergy Mild Rash Verified 09/24/22 16:19 tetracycline Allergy Mild Rash Verified 09/24/22 16:19 Home Medications Medication Instructions Recorded Confirmed Type mirtazapine 30 mg tablet 30 mg PO HS 05/04/18 09/24/22 History aspirin 81 mg tablet,delayed 81 mg PO QAM #30 tabs 03/02/19 09/24/22 Rx release (Ecotrin Low Strength) vortioxetine 20 mg tablet 20 mg PO QPM 06/06/19 09/24/22 History (Trintellix) flash glucose sensor (FreeStyle 06/16/21 09/24/22 History Jose Francisco 14 Day Sensor kit) pen needle, diabetic 32 gauge x 10/18/21 09/24/22 History 5/32" (BD Ultra-Fine Flores Pen Needle) docusate sodium 100 mg capsule 100 mg PO BID PRN Constipation 01/12/22 09/24/22 History (Colace) ergocalciferol (vitamin D2) 1,250 1,250 mcg PO WK 03/24/22 09/24/22 History mcg (50,000 unit) capsule insulin lispro 100 unit/mL 2 unit subcut QDL PRN DEPENDS ON 04/03/22 09/24/22 History subcutaneous pen (Humalog KwikPen BSG (U-100) Insulin) brexpiprazole 1 mg tablet (Rexulti) 1 mg PO HS 04/08/22 09/24/22 History canagliflozin 100 mg tablet 100 mg PO QAM #30 tabs 08/26/22 09/24/22 Rx (Invokana) metformin 1,000 mg tablet 1,000 mg PO BID #180 tabs 09/06/22 09/24/22 Rx insulin glargine 100 unit/mL (3 16 unit subcut QAM 09/24/22 09/24/22 History mL) subcutaneous pen (Basaglar KwikPen U-100 Insulin) levothyroxine 112 mcg tablet 112 mcg PO DAILYBB 09/24/22 09/24/22 History Past Med/Surg History Medical History (Updated 09/24/22 @ 17:47 by Tim Mckeon MD) Abdominal pain Acute gastritis Altered mental status Anxiety Cervical dysplasia Chest pain Chest pain Constipation Diabetes Dizziness Dyslipidemia Elevated lactic acid level Fecal impaction GERD (gastroesophageal reflux disease) Gout H/O: stroke History of anemia HNP (herniated nucleus pulposus), lumbar Hyperglycemia Hyperglycemia Hyperglycemia Hyperlipidemia Hypertension Hypoglycemia Hypokalemia Hypotension Hypothyroidism Intractable low back pain Lactic acidemia Lower extremity weakness Lumbar stenosis with neurogenic claudication Major depressive disorder, recurrent episode, severe with anxious distress Nausea & vomiting Neurological deficit present Postsurgical hypothyroidism Suicide attempt T2DM (type 2 diabetes mellitus) Tachycardia Vertigo Wound, open, ear, external with complication Surgical History H/O cardiac catheterization H/O dilation and curettage H/O laparoscopy History of colposcopy with cervical biopsy History of dental surgery History of hysterectomy History of tonsillectomy History of total abdominal hysterectomy Previous back surgery Status post hysteroscopic ablation of endometrium Status post lumbar spine surgery for decompression of spinal cord Family History Mother , in her early 70s of some sort of cancer (patient not clear if it was breast cancer) Breast cancer Diabetes Grandmother Breast cancer Grandmother Breast cancer Unknown Colon cancer Father , Diet it age 78 of a myelodysplastic syndrome. He also had Gkabhqc-Wsmgb-Xrrtb disease. Myelodysplasia (myelodysplastic syndrome) Nvtbaye-Regdy-Xxgct disease Heart disease Brother Biykiot-Kuesg-Fmoze disease Other No pertinent family history in first degree relatives Social History Smoking Status: Never smoker Hx Alcohol Use: No Hx Substance Use: No Preferred Language: Arabic Communication Ability: Effective Licensed Mental Health Counselor Required: No Beliefs That Will Affect Care: None marital status: significant other Current Living Situation: Significant Other current occupational status: disabled current occupation: Patient used to work at [employer] for 23 years and then [employer] How many Children do You have: 2 other: Retired on disability from her back 3 years ago Feels Safe at Home: Yes Assistive Devices: Cane and Walker Review of Systems Review of Systems: All systems reviewed & are unremarkable except as noted in HPI & below Physical Exam Physical Exam: General: A&Ox3. NAD. Cooperative. HEENT: Atraumatic, normocephalic. Vision/hearing grossly intact Pulm: CTAB A&P. -wheezes, -rales, -rhonchi. Symmetrical chest rise. No increased work of breathing. No respiratory distress. Cardiac: Regular, tachycardic, no murmur. Radial pulses intact and symmetrical. Abdominal: No right upper quadrant tenderness/Adrian's negative. Trace left upper quadrant tenderness worse on inspiration. No rebound/guarding Extremities: Warm, dry. No edema. Thin. Diminished sensation in feet bilaterally 2/2 nephropathy. Moves all extremities equally. Resting upper and lower extremity mild tremor which quiets on motion. 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 Results & Data Results & Data ([facility]) Vital Signs (Past 12 Hours) Vital Signs Temp Pulse Resp BP Pulse Ox O2 Del Method 09/24/22 17:03 127 H 09/24/22 16:31 133 H 20 94 Room Air 09/24/22 16:25 36.6 C 133 H 20 125/69 94 Room Air PG Care Time/CCT Total # of Minutes Spent Total Time Spent with Patient: Total time spent is greater than 50% in coordination of care (as documented) at patient's floor/unit and/or counseling patient: Coding Level of Care Code 84396 INT INP/OBS CARE 2/55MIN Diagnoses Nausea & vomiting R11.2 Vomiting Intractability: non-intractable Vomiting type: unspecified Hypothyroidism E03.9 Major depressive disorder, recurrent episode, severe with anxious distress F33.2 T2DM (type 2 diabetes mellitus) E11.9 Diabetic peripheral neuropathy E11.42 Hyperlipidemia E78.5 GERD (gastroesophageal reflux disease) K21.9 Tachycardia R00.0 (1) Nausea & vomiting Vomiting Intractability: non-intractable Vomiting type: unspecified Qualified Code(s): R11.2 - Nausea with vomiting, unspecified
[2022-09-24] MEDS ORDERED: FAMOTIDINE 20 MG in SYRINGE 3 ML IV ONE (18:00)
[2022-09-24 18:28] LABS: D Dimer 820 ug/L FEU (0-500)
[2022-09-24 18:36] LABS: Magnesium 1.4 mg/dl (1.7-2.4)
[2022-09-24] MEDS ORDERED: OPTIRAY 320 500ml IV ONE (19:07)
--- NOTE | 2022-09-24 19:26 | CT Scan Report ---
CT ANGIOGRAM OF THE CHEST CLINICAL HISTORY: Atypical chest pain. COMPARISON STUDY: Chest x-ray dated 09/24/2022. Chest CT dated 03/24/2021 and 07/31/2016. TECHNIQUE: Following the IV administration of 109 cc of Optiray 320, CT angiogram of the chest was pe rformed from the upper abdomen to the thoracic inlet utilizing the pulmonary embolus protocol. Images are reviewed in the axial, sagittal, and coronal planes. 3-D MIPS images are created and assessed. I V contrast was administered without complication. A dose lowering technique was utilized adhering to the principles of ALARA. CT DOSE: 508.51 mGycm FINDINGS: Thyroid: Atrophic. Thoracic aorta: There is moderate atherosclerotic calcification of the thoracic aorta, which is janett l in caliber and demonstrates standard 3-vessel arch anatomy. No dissection is seen. Pulmonary vasculature: The pulmonary trunk is normal in caliber. There are no filling defects identif ied in main, lobar, or segmental pulmonary branches to suggest pulmonary embolus. Heart: The heart is top normal in size and without pericardial effusion. The mitral annulus is densel y calcified. Lungs and pleural spaces: Evaluation of the lung parenchyma is modestly degraded by motion artifact. There is slight elevation of the left hemidiaphragm. No airspace consolidation or pleural effusion is identified. The trachea and central airways are clear. Mild dependent atelectasis is noted at the guillermo ng bases. A 4 mm left apical nodule on image #218 and a 2 mm left upper lobe nodule on image #188 hav e been present dating back to 2016 and are of doubtful significance. Mediastinum: There is no mediastinal lymphadenopathy. Breanne: Clear. Axillae: There is no axillary lymphadenopathy. Upper abdomen: There is a small hiatal hernia. Partially visualized upper abdominal viscera is otherw ise within normal limits. Skeletal structures: The skeletal structures are osteopenic. Mild degenerative change is noted in the thoracic spine there No lytic or blastic bony lesions are seen. Soft tissues: A metallic foreign body versus surgical clip is seen in the left breast. IMPRESSION: 1. There is no evidence of pulmonary embolus in the main, lobar, or segmental pulmonary arteries. 2. There is no airspace consolidation or pleural effusion. 3. Additional findings as above. ACT 112: Negative or not required by law. Electronically signed by: Bright Cruz M.D. 09/24/2022 7:23 PM
[2022-09-24] MEDS ORDERED: GLUCAGON FOR INJ 1 MG VIAL SQ PRN (19:27)
[2022-09-24] MEDS ORDERED: GLUCOSE 10 TAB/TUBE PO PRN (19:27)
[2022-09-24] MEDS ORDERED: ACETAMINOPHEN 325 MG TAB PO PRN (19:27)
[2022-09-24] MEDS ORDERED: DEXTROSE 50% 50 ML SYRINGE IV PRN (19:27)
[2022-09-24] MEDS ORDERED: GLUCOSE 40% GEL 15 GM TUBE PO PRN (19:27)
[2022-09-24] MEDS ORDERED: DOCUSATE SODIUM 100 MG CAP PO PRN (19:27)
[2022-09-24] MEDS ORDERED: CARBOHYDRATES FOR HYPOGLYCEMIA PO PRN (19:27)
[2022-09-24] MEDS: NORMOSOL-R 1,000 ML IV SCH (20:08)
[2022-09-24] MEDS: PANTOprazole 40 MG in SYRINGE 0 ML IV SCH (20:11)
[2022-09-24] MEDS: MIRTAZAPINE TAB 15 MG TAB PO SCH (20:13)
[2022-09-24] MEDS ORDERED: INSULIN ASPART PER UNIT SC SCH (21:00)
[2022-09-24] MEDS ORDERED: Nursing to Pharmacy Communication SCH (22:30)
[2022-09-24] MEDS: HEPARIN SOD 5,000 UNIT/0.5 ML VIAL SQ SCH (22:50)
[2022-09-24] MEDS: INSULIN ASPART PER UNIT SC SCH (23:55)
[2022-09-25] MEDS: HEPARIN SOD 5,000 UNIT/0.5 ML VIAL SQ SCH ×3 (06:15→21:55)
[2022-09-25] MEDS: LEVOTHYROXINE SODIUM 112 MCG TABLET PO SCH (06:43)
[2022-09-25] MEDS: INSULIN ASPART PER UNIT SC SCH ×3 (06:43→18:15)
[2022-09-25 07:29] LABS: Basophils # (auto) 0.02 K/uL (0-0.2); Basophils % (auto) 0.2 %; Eosinophils # (auto) 0.05 K/uL (0-0.50); Eosinophils % (auto) 0.6 %; Hematocrit (blood only) 37.9 % (37.0-47.0); Hemoglobin 12.8 g/dl (12.0-16.0); Immature Granulocytes # (auto) 0.04 K/uL (0.01-0.20); Immature Granulocytes % (auto) 0.5 %; Lymphocytes # (auto) 1.05 K/uL (1.2-3.4); Lymphocytes % (auto) 12.8 %; Mean Corpuscular Hgb Conc 33.8 g/dL (32.0-36.0); Mean Corpuscular Volume 85.9 fL (80.0-100.0); Mean Platelet Volume 10.2 fL (9.4-12.4); Monocytes # (auto) 0.38 K/uL (0.11-0.59); Monocytes % (auto) 4.6 %; Neutrophils # (auto) 6.65 K/uL (1.40-6.50); Neutrophils % (auto) 81.3 %; Platelet Count 223 K/uL (130-400); RDW Coefficient of Variation 14.9 % (11.5-14.5); RDW Standard Deviation 46.7 fL (36.4-46.3); Red Blood Count 4.41 M/uL (4.20-5.40); White Blood Count 8.19 K/ul (4.8-10.8)
[2022-09-25] MEDS: NORMOSOL-R 1,000 ML IV SCH ×3 (07:45→18:17)
[2022-09-25 07:46] LABS: BUN Creatinine Ratio 21.9 (10-20); Calcium 8.6 mg/dl (8.5-10.1); Creatinine Clr Calc Pharmacy 84.1 ml/min; Est GFR (African American) 107.8 ml/min; Potassium 3.6 mmol/L (3.5-5.1)
[2022-09-25] MEDS: ONDANSETRON INJ 2 MG/ML 2 ML VIAL IV PRN ×2 (08:15→13:19)
[2022-09-25] MEDS: PANTOprazole 40 MG in SYRINGE 0 ML IV SCH (08:15)
[2022-09-25] MEDS: ASPIRIN 81 MG ECTAB PO SCH (08:15)
[2022-09-25 08:17] LABS: Estimated Average Glucose 183 mg/dl
[2022-09-25] MEDS: LANTUS PER UNIT CHARGE SQ SCH ×2 (08:52→21:56)
--- NOTE | 2022-09-25 08:54 | Electrocardiogram Report ---
Test Reason : Blood Pressure : / mmHG Vent. Rate : 143 BPM Atrial Rate : 143 BPM P-R Int : 136 ms QRS Dur : 068 ms QT Int : 280 ms P-R-T Axes : 028 011 059 degrees QTc Int : 432 ms Poor data quality, interpretation may be adversely affected Sinus tachycardia Nonspecific ST abnormality Abnormal ECG When compared with ECG of 08-APR-2022 18:11, Vent. rate has increased BY [address] now depressed in Lateral leads Confirmed by Gamal Reaves ([id number]) on 09/25/2022 8:54:05 AM Referred By: REFERRED SELF Confirmed By:Jesus Reaves
--- NOTE | 2022-09-25 09:10 | Ultrasound Report ---
US gallbladder CLINICAL HISTORY: Abdominal pain. COMPARISON STUDY: Right upper quadrant ultrasound November 01, [address] of the abdomen and pelvis pe rformed earlier today. FINDINGS: No hepatic lesions are identified. There is no biliary ductal dilatation. No gallstones are noted. The gallbladder is moderately distended. There is no gallbladder wall thickening. No sonograp hic Adrian sign was elicited. Pancreatic body is normal. Head and tail are obscured. There is no righ t hydronephrosis. IMPRESSION: 1. Moderate gallbladder distention. However, no gallstones or sonographic Adrian sign. Therefore, acu te cholecystitis is considered unlikely. If clinically indicated, a hepatobiliary scan could be obtai jeffrey. 2. No biliary ductal dilatation. ACT 112: Negative or not required by law. Electronically signed by: Ferdinand Arreola M.D. 09/25/2022 9:09 AM
--- NOTE | 2022-09-25 09:23 | Electrocardiogram Report ---
Test Reason : Blood Pressure : / mmHG Vent. Rate : 129 BPM Atrial Rate : 129 BPM P-R Int : 150 ms QRS Dur : 066 ms QT Int : 286 ms P-R-T Axes : 014 009 023 degrees QTc Int : 418 ms Poor data quality, interpretation may be adversely affected Sinus tachycardia Possible Inferior infarct , age undetermined Abnormal ECG When compared with ECG of 08-APR-2022 18:11, No significant change was found Confirmed by Gamal Reaves ([id number]) on 09/25/2022 9:23:22 AM Referred By: REFERRED SELF Confirmed By:Jesus Reaves
--- NOTE | 2022-09-25 10:32 | Hospitalist Progress Note ---
Date of Service September 25, 2022 Assessment & Plan (1) Nausea & vomiting: Plan: Nausea/vomiting/diarrhea-acute onset, with some lower abdominal pain which is now resolved. None bloody emesis and stool. No fevers but had a mild leukocytosis which is now resolved CTA/P with mild gallbladder distention, otherwise unremarkable. Patient does not have right upper quadrant tenderness, and has not had pain with meals. Given nausea/vomiting, and elevated ALT and alkaline phosphatase, RUQ ultrasound was performed-it shows moderately distended gallbladder but no evidence of acute cholecystitis She had an elevated lactate on admission which actually went up slightly with IV fluids Could be from dehydration however she has a history of elevated lactate in the past going as far back as 2019 on multiple different occasions Clinically she has no evidence of acute cholecystitis. In fact, I suspect she has a viral gastroenteritis given the nausea/vomiting and now diarrhea Overall improving without any treatment other than IV fluids and antiemetics -Check stool PCR panel -Continue supportive care, IV fluid hydration -Advance to clear liquids today -Continue antiemetics as needed Continue IV Protonix for possible gastritis -Follow LFTs, add on CK to this morning's labs-elevated LFTs could be from viral infection. Do not suspect obstructive process given normal total bilirubin (2) Tachycardia: Plan: Sinus tachycardia persists and is likely secondary to volume depletion and dehydration from profuse nausea/vomiting and now diarrhea -Has a history of tachycardia for many years as per chart review -Dehydration evidenced by urinalysis with elevated specific gravity -Improving now with IV fluids-continue IV fluids until tolerating p.o. -Continue telemetry monitoring -D-dimer was elevated on admission and a CT angiogram of the chest was performed which was negative for PE (3) Hypothyroidism: Plan: TSH here is normal Continue Synthroid at current dose (4) Major depressive disorder, recurrent episode, severe with anxious distress: Plan: Continue home Trintellix, Rexulti-these need to be brought in from home -Continue mirtazapine (5) T2DM (type 2 diabetes mellitus): Plan: With neuropathy -Continue basal and bolus insulin -Holding home Canagliflozin Blood sugars are controlled (6) Diabetic peripheral neuropathy: Plan: At baseline (7) Elevated lactic acid level: Plan: Given frequently elevated lactate in the past, could be from metformin therapy Could be from diabetes alone although she does not have any hyperglycemia or DKA Doubt any alcohol ingestions Could be from thiamine deficiency-we will check thiamine level in the morning There is a rare form of lactic acidosis called ED-lactic acidosis usually in patients with short-bowel syndrome or other GI malabsorption. She does not seem to have that. I do not think this is from hypoperfusion in this case as she has not had an septic shock (8) Restless legs: Plan: She reports she has had this issue for quite some time She is on Rexulti which could have a side effect of this as it is an atypical antipsychotic She follows with psychiatry Consider neurology follow-up as an outpatient She reports she has had iron testing and been on iron tablets in the past-she does not have a microcytic anemia and therefore likely does not have iron deficiency at this time Plan DVT prophylaxis: Heparin SQ Disposition-continued stay in PCU Admission and Anticipated Discharge Date Admission Date: September 24, 2022 Subjective Patient feeling better. Had some Zofran for nausea this morning and nausea is now improved. She is denying any further abdominal pains. Has had 3 episodes of watery brown stool this morning but no blood in the stool or vomit. Is asking about eating. Telemetry with sinus tachycardia with rates in the 110s to 120s but then improved to the 90s with further IV fluids today. Denies chest pains or shortness of breath. Review of Systems Review of Systems: All systems reviewed & are unremarkable except as noted in HPI & below Physical Exam Constitutional: WD/WN, vitals as above Respiratory: normal respiratory effort, lungs clear to auscultation Cardiovascular: Rate/Rhythm: regular rhythm and + tachycardic Heart Sounds: no murmur Extremities: no edema Gastrointestinal (Abdomen): normal bowel sounds, soft, nontender, no hepatosplenomegaly Musculoskeletal: no cyanosis or clubbing, extremities motor strength 5/5 Skin: no rashes, warm and dry Neurologic: Motor/Sensory: + abnormal movement (Frequently moving bilateral legs) Psychiatric: A+Ox3, euthymic affect Results & Data Results & Data ([facility]) Vital Signs (Past 12 Hours) Vital Signs Temp Pulse Resp BP Pulse Ox O2 Del Method 09/25/22 07:24 37.2 C 113 H 18 116/71 93 Room Air 09/25/22 04:12 36.6 C 114 H 19 100/63 94 Room Air 09/24/22 22:58 37.1 C 119 H 18 96/63 L 92 Room Air Laboratory Results CBC, BMP, D-dimer, urinalysis, lactate all reviewed TSH from August Diagnostic Findings Right upper quadrant ultrasound reviewed PG Care Time/CCT Total # of Minutes Spent Total Time Spent with Patient: Total time spent is greater than 50% in coordination of care (as documented) at patient's floor/unit and/or counseling patient: Coding Level of Care Code 03949 SUB INP/OBS CARE 2/35MIN Diagnoses Nausea & vomiting R11.2 Tachycardia R00.0 Hypothyroidism E03.9 Major depressive disorder, recurrent episode, severe with anxious distress F33.2 T2DM (type 2 diabetes mellitus) E11.9 Diabetic peripheral neuropathy E11.42 Elevated lactic acid level R79.89 Restless legs G25.81
[2022-09-25 16:22] LABS: Albumin Level 3.5 gm/dl (3.4-5.0); Bilirubin Direct 0.1 mg/dl (0-0.2); Bilirubin,Total 0.7 mg/dl (0.2-1.0); Total Protein 6.3 gm/dl (6.0-8.3)
[2022-09-25 20:04] LABS: Adenovirus F 40/41 PCR Not Detected (NotDetected); Astrovirus PCR Not Detected (NotDetected); Campylobacter PCR Not Detected (NotDetected); Cryptosporidium PCR Not Detected (NotDetected); Cyclospora cayetanensis PCR Not Detected (NotDetected); Entamoeba histolytica PCR Not Detected (NotDetected); Enteroaggregative E.coli(EAEC) Not Detected (NotDetected); Enteropathogenic E.coli (EPEC) Not Detected (NotDetected); Enterotoxigenic E.coli (ETEC) Not Detected (NotDetected); Giardia lamblia PCR Not Detected (NotDetected); Plesiomonas shigelloides PCR Not Detected (NotDetected); Rotavirus A PCR Not Detected (NotDetected); Salmonella PCR Not Detected (NotDetected); Sapovirus PCR Not Detected (NotDetected); Shiga-like Toxin E.coli (STEC) Not Detected (NotDetected); Shigella/Enteroinvasive E.coli Not Detected (NotDetected); Vibrio cholerae PCR Not Detected (NotDetected); Vibrio species PCR Not Detected (NotDetected); Yersinia enterocolitica PCR Not Detected (NotDetected)
[2022-09-25 20:14] LABS: Norovirus GI/GII PCR DETECTED (NotDetected)
[2022-09-25] MEDS: MIRTAZAPINE TAB 15 MG TAB PO SCH (21:55)
[2022-09-26] MEDS: NORMOSOL-R 1,000 ML IV SCH ×2 (02:29→10:06)
[2022-09-26] MEDS: HEPARIN SOD 5,000 UNIT/0.5 ML VIAL SQ SCH ×2 (05:57→14:35)
[2022-09-26] MEDS: LEVOTHYROXINE SODIUM 112 MCG TABLET PO SCH (05:57)
[2022-09-26 06:04] LABS: Basophils # (auto) 0.01 K/uL (0-0.2); Basophils % (auto) 0.2 %; Eosinophils # (auto) 0.16 K/uL (0-0.50); Eosinophils % (auto) 2.8 %; Hematocrit (blood only) 36.8 % (37.0-47.0); Hemoglobin 12.4 g/dl (12.0-16.0); Immature Granulocytes # (auto) 0.01 K/uL (0.01-0.20); Immature Granulocytes % (auto) 0.2 %; Lymphocytes # (auto) 1.84 K/uL (1.2-3.4); Lymphocytes % (auto) 32.3 %; Mean Corpuscular Hemoglobin 29.7 pg (25.0-34.0); Mean Corpuscular Hgb Conc 33.7 g/dL (32.0-36.0); Mean Corpuscular Volume 88.2 fL (80.0-100.0); Mean Platelet Volume 10.1 fL (9.4-12.4); Monocytes # (auto) 0.36 K/uL (0.11-0.59); Monocytes % (auto) 6.3 %; Neutrophils # (auto) 3.31 K/uL (1.40-6.50); Neutrophils % (auto) 58.2 %; Platelet Count 202 K/uL (130-400); RDW Coefficient of Variation 15.1 % (11.5-14.5); RDW Standard Deviation 48.1 fL (36.4-46.3); Red Blood Count 4.17 M/uL (4.20-5.40); White Blood Count 5.69 K/ul (4.8-10.8)
[2022-09-26 06:20] LABS: Albumin Globulin Ratio 1.3 (0.9-2); Albumin Level 3.4 gm/dl (3.4-5.0); BUN Creatinine Ratio 18.5 (10-20); Bilirubin,Total 0.5 mg/dl (0.2-1.0); Calcium 8.3 mg/dl (8.5-10.1); Creatinine Clr Calc Pharmacy 82.4 ml/min; Est GFR (African American) 107.2 ml/min; Est GFR (Non-African American) 92.5 ml/min; Globulin 2.6 gm/dl (2.5-4.0); Magnesium 1.9 mg/dl (1.7-2.4); Potassium 3.6 mmol/L (3.5-5.1)
[2022-09-26] MEDS: ASPIRIN 81 MG ECTAB PO SCH (08:23)
[2022-09-26] MEDS: PANTOprazole 40 MG in SYRINGE 0 ML IV SCH (08:23)
[2022-09-26] MEDS: LANTUS PER UNIT CHARGE SQ SCH (08:35)
[2022-09-26] MEDS: INSULIN ASPART PER UNIT SC SCH ×3 (08:35→17:04)
[2022-09-26] MEDS ORDERED: THIAMINE HCL 200 MG in SODIUM CHLORIDE 0.9% 50 ML IV ONE (10:00)
--- NOTE | 2022-09-26 10:21 | Discharge Summary ---
Date of Service September 26, 2022 Admission HPI Per Admitting Provider 67yo female who presents with nausea and vomiting of 24 hours without diarrhea. Per history of CVA, hyperlipidemia, GERD, DM. Has not taken medications today due to nausea/vomiting. Has left lower quadrant abdominal pain. Mild leukocytosis of 11.40 Sodium/potassium normal Glucose 217 ALT 116, alk phos 142, AST 39. No prior transaminitis. Lipase is normal High-sensitivity troponin is normal Heart rate improving with IVF CT A/P shows distended gallbladder without overt cholecystitis Gallbladder ultrasound pending UA does not appear infected Viral panel pending Urszula reports that she has had 3 episodes of nonbloody nonbilious vomiting today. She felt normal yesterday. Has some ache in her left lower/left upper quadrant which is worse with inspiration. No chest pain or chest pressure. She is not short of breath. Reports that she feels little shaky, but this is normal for her. No leg swelling. She notes chronic numbness and diabetic neuropathy in the lower extremities bilaterally and a little bit in her hands which has not changed. She has not had any diarrhea, no bloody bowel movements, no black bowel movements. She has not passed out. Denies syncope/presyncope. Does not think she has had any unusual foods, felt okay going to bed last night.Took DM medications yesterday and this AM. Has not taken midday medications. Denies history of gallbladder and liver problems. Does endorse that she feels a little bit anxious. Has felt her heart race before, does not feel it racing currently and does not have palpitations. Does feel very dehydrated and is thirsty. Medical History: Reviewed Medications: Reviewed Surgical History: Reviewed Allergies: Reviewed Social History: Reviewed Code Status: Full code Principal Diagnosis Norovirus, gastroenteritis Discharge Exam Constitutional WD/WN, vitals as above Respiratory normal respiratory effort, lungs clear to auscultation Cardiovascular Rate/Rhythm: regular rate and regular rhythm Heart Sounds: no murmur Extremities: no edema Gastrointestinal (Abdomen) normal bowel sounds, soft, nontender, no hepatosplenomegaly Musculoskeletal no cyanosis or clubbing, extremities motor strength 5/5 Skin no rashes, warm and dry Neurologic Motor/Sensory: + abnormal movement (Frequently moving bilateral legs) Psychiatric A+Ox3, euthymic affect Discharge Data Allergies Allergy/AdvReac Type Severity Reaction Status Date / Time cisapride Allergy Intermediate Hives Verified 09/24/22 16:19 doxycycline Allergy Intermediate Rash Verified 09/24/22 16:19 gadobutrol [From Gadavist] Allergy Intermediate Hives Verified 09/24/22 16:19 lansoprazole Allergy Intermediate Hives Verified 09/24/22 16:19 Penicillins Allergy Mild Rash Verified 09/24/22 16:19 tetracycline Allergy Mild Rash Verified 09/24/22 16:19 Consultations 09/24/22 17:13 ED Decision to Admit Stat Ordered Studies 09/24/22 15:59 CT Abd and Pelvis [CT abd pelvis IV con only] Stat 09/24/22 17:32 US gallbladder Urgent 09/24/22 18:35 CT angio chest PE protocol Stat Hospital Course (1) Norovirus: As below (2) Nausea & vomiting: Nausea/vomiting/diarrhea-acute onset, with some lower abdominal pain which is now resolved. None bloody emesis and stool. No fevers but had a mild leukocytosis which is now resolved CTA/P with mild gallbladder distention, otherwise unremarkable. Patient does not have right upper quadrant tenderness, and has not had pain with meals. Given nausea/vomiting, and elevated ALT and alkaline phosphatase, RUQ ultrasound was performed-it shows moderately distended gallbladder but no evidence of acute cholecystitis She had an elevated lactate on admission which actually went up slightly with IV fluids Could be from dehydration however she has a history of elevated lactate in the past going as far back as 2019 on multiple different occasions-see below Clinically she has no evidence of acute cholecystitis. In fact, I suspect she has a viral gastroenteritis given the nausea/vomiting and now diarrhea Overall improving without any treatment other than IV fluids and antiemetics Stool PCR panel did indeed return POSITIVE for Norovirus -Continue supportive care, IV fluid hydration given -tolerating regular soft diet at time of discharge, diarrhea and N/V resolved Stable for dc to home -LFTs trended downward, CK normal-elevated LFTs could be from viral infection. Do not suspect obstructive process given normal total bilirubin (3) Tachycardia: Sinus tachycardia now reoslved and was likely secondary to volume depletion and dehydration from profuse nausea/vomiting/diarrhea -Has a history of tachycardia for many years as per chart review -Dehydration evidenced by urinalysis with elevated specific gravity -resolved now with IV fluids -D-dimer was elevated on admission and a CT angiogram of the chest was performed which was negative for PE (4) Hypothyroidism: TSH here is normal Continue Synthroid at current dose (5) Major depressive disorder, recurrent episode, severe with anxious distress: Continue home Trintellix, Rexulti- -Continue mirtazapine (6) T2DM (type 2 diabetes mellitus): With neuropathy -Continue basal and bolus insulin -Held home Canagliflozin while admitted but can restart on discharge -dc metformin due to elevated lactate -Blood sugars are controlled (7) Diabetic peripheral neuropathy: At baseline (8) Elevated lactic acid level: Given frequently elevated lactate in the past, could be from metformin therapy Could be from diabetes alone although she does not have any hyperglycemia or DKA Doubt any alcohol ingestions Could be from thiamine deficiency- thiamine level drawn and pending at time of discharge There is a rare form of lactic acidosis called ED-lactic acidosis usually in patients with short-bowel syndrome or other GI malabsorption. She does not seem to have that. I do not think this is from hypoperfusion in this case as she has not had an septic shock Lactate normal on day of discharge -gave one dose IV thiamine here and recommend continuing po thiamine 100mg po daily until Vit B1 level resulted -dc metformin (9) Restless legs: She reports she has had this issue for quite some time She is on Rexulti which could have a side effect of this as it is an atypical antipsychotic She follows with psychiatry Consider neurology follow-up as an outpatient She reports she has had iron testing and been on iron tablets in the past-she does not have a microcytic anemia and therefore likely does not have iron deficiency at this time Plan DVT prophylaxis: Heparin SQ Disposition-stable for dc to home today, does not need home services as has daily caregivers and assistance from boyfriend, attends outpt PT at [facility] Total Time Total Time Spent Total Time Spent (In Minutes): 35 min Discharge Plan Discharge Items Patient Disposition: Home - Self-Care Reason For Visit: TACHYCARDIA, N/V, TRANSAMINITIS Discharge Diagnosis: Norovirus, gastroenteritis Condition on Discharge: Good Activity: Resume your previous activity Non-emergency contact: Primary Care Provider Call non-emergency contact if: you have any medication questions and your symptoms worsen Follow-up/Referrals: Andry Kerr MD [Primary Care Provider] - (Follow up within 1-2 weeks.) Diet: Low Fiber Diet Comment: low fiber/soft/bland diet x 1 week Addtl Attending Provider Instructions: Continue to stay hydrated with plenty of fluids. Your symptoms from this viral gastroenteritis should continue to improve. Pending Studies at Discharge: Yes (Vitamin B1 level) Stand-Alone Forms: My [facility], Smoking Cessation Medications and DC Order Prescriptions: New thiamine HCl (vitamin B1) 100 mg Tablet 100 mg PO QAM Qty: 30 0RF Rx Instructions: Over the counter Continued Invokana 100 mg tablet 100 mg PO QAM Qty: 30 1RF insulin glargine [Lantus Solostar U-100 Insulin] 100 unit/mL (3 mL) insulin pen 16 unit subcut QAM Qty: 15 2RF (DME) FreeStyle Jose Francisco 14 Day Sensor Kit See Rx Instructions .Route Rx Instructions: As directed (DME) pen needle, diabetic [BD Ultra-Fine Flores Pen Needle] 32 gauge x 5/32" needle See Rx Instructions miscellaneous .MEDSUPPLY Rx Instructions: Inject insulin once daily aspirin [Ecotrin Low Strength] 81 mg Tablet,Delayed Release (Dr/Ec) 81 mg PO QAM Qty: 30 0RF Trintellix 20 mg tablet 20 mg PO QPM docusate sodium [Colace] 100 mg capsule 100 mg PO BID PRN (Reason: Constipation) mirtazapine 30 mg tablet 30 mg PO HS ergocalciferol (vitamin D2) 1,250 mcg (50,000 unit) capsule 1,250 mcg PO WK Rx Instructions: insulin lispro [Humalog KwikPen Insulin] 100 unit/mL insulin pen 3 unit SUBCUT TIDWMEAL Rexulti 1 mg tablet 1 mg PO HS levothyroxine 112 mcg tablet 112 mcg PO DAILYBB Discontinued metformin 1,000 mg tablet 1,000 mg PO BID Qty: 180 1RF Discharge Orders: Discharge Order (Routine); Ordered 09/26/22 Ordered By: Courtney Mcintyre/Other Patient Handouts: High Blood Sugar (Hyperglycemia), Hypoglycemia (Low Blood Sugar), Managing Type 2 Diabetes, Special Foot Care for Diabetes Admission Data Admit Date/Time: 09/24/22 17:56 Attending Provider: oCurtney Rehman Admit Provider: Tim Mckeon Primary Care Provider: Andry Kerr Other Providers: Tim Mckeon Coding Level of Care Code HOSP INP/OBS DISCH >30 MIN Diagnoses Norovirus A08.11 Nausea & vomiting R11.2 Tachycardia R00.0 Hypothyroidism E03.9 Major depressive disorder, recurrent episode, severe with anxious distress F33.2 T2DM (type 2 diabetes mellitus) E11.9 Diabetic peripheral neuropathy E11.42 Elevated lactic acid level R79.89 Restless legs G25.81
[2022-09-27] MEDS ORDERED: THIAMINE HCL 100 MG TAB PO SCH (09:00)
[2022-09-28] MEDS ORDERED: ERGOCALCIFEROL 50,000 UNITS 1250 MCG CAP PO SCH (09:00)
== END 2022-09-26 17:46 | disposition home or self-care (01) | DRG 392 ==
LOC: ED 15:40 → SUATTDRO 17:56 → 2S 17:56

== ENCOUNTER 2022-10-08 13:36 | Observation (INO) ==
[2022-10-08] MEDS ORDERED: ONDANSETRON INJ 2 MG/ML 2 ML VIAL IV STA (13:56)
[2022-10-08] MEDS ORDERED: SODIUM CHLORIDE 0.9% 500 ML IV STA (13:56)
[2022-10-08] MEDS ORDERED: LORazepam 2 MG/1 ML VIAL IV STA (13:56)
--- NOTE | 2022-10-08 14:02 | Emergency Department Note ---
Impression & Plan Nausea & vomiting, Abdominal pain, acute, left upper quadrant ED Provider Note NAME: JONATHAN TOVAR AGE: 67 SEX: F : 1955 ARRIVES VIA: Walk-In INFORMANT: Patient, ED PROVIDER(S): Silverio Mohr DO CHIEF COMPLAINT: Nausea and vomiting HPI: The patient is a 67-year-old female who presented to the emergency department for an evaluation of nausea vomiting. The patient was in our facility recently for GI symptoms and was diagnosed with norovirus. The patient states that she started having nausea this morning as well as vomiting. She became very anxious about this. She does complain of left upper quadrant abdominal pain. She denies having any fever. She denies having any rectal bleeding. The patient denies having any chest pain or difficulty breathing. Patient came back to the emergency department because of the symptoms. Patient was not seen by provider prior to coming in today because of the weekend. ROS: See above HPI for pertinent positives & negatives. A total of 10 systems reviewed and were otherwise negative. PAST MEDICAL HISTORY: See Below PAST SURGICAL HISTORY: See Below FAMILY HISTORY: See Below SOCIAL HISTORY: See Below HOME MEDICATIONS: See Below ALLERGIES: See Below VITALS: See Below PHYSICAL EXAMINATION: GENERAL: The patient is awake and alert. The patient is very anxious appearing. EYES: The conjunctivae are clear. The pupils are round and reactive. EARS, NOSE, MOUTH AND THROAT: The nose is without any evidence of any deformity. NECK: The neck is nontender and supple. RESPIRATORY: Normal respiratory effort is noted there is no evidence of wheezing rhonchi or rales CARDIOVASCULAR: Regular rate and rhythm noted there no murmurs rubs or gallops normal S1 normal S2. GASTROINTESTINAL: The abdomen is soft. The patient is distended. There is left upper quadrant tenderness to palpation. There is no guarding rigidity. MUSCULOSKELETAL/EXTREMITIES: There is no evidence of gross deformity full range of motion is noted in the hips and shoulders. SKIN: There is no obvious evidence of any rash. There are no petechiae, pallor or cyanosis noted. NEUROLOGIC: Patient is awake alert and oriented x3 strength is symmetric patellar reflexes are 2+ bilaterally MEDICAL DECISION MAKING: The patient is a 67-year-old female who presented to the emergency department for an evaluation of upper abdominal pain nausea vomiting. She was just discharged in our facility recently. The patient states that she started having abdominal pain earlier today as well as nausea vomiting. She has not been able to eat. She was treated with antiemetics in the emergency department. On reevaluation she was not significantly improved. Patient does not feel comfortable with the way she feels and would prefer an evaluation by the hospitalist. I will discuss this case with the on-call [facility] hospitalist for further evaluation. The patient did have a CAT scan which showed no acute process. She does not appear to have hypotension or significant tachycardia. The patient's abdominal exam was not consistent with acute s urgical abdomen. Triage Nursing notes reviewed. Prior medical records reviewed Vital Signs: reviewed and remarkable for no significant abnormalities Differential diagnosis: Gastroenteritis, food borne illness, infections, appendicitis, diverticulitis, inflammatory bowel disease, obstruction, GI bleed, biliary pathology, volvulus, as well as other pathologies. ER treatment provided: See below Diagnostics interpreted by me: ECG: EKG was obtained in the emergency department. My interpretation is sinus tachycardia at 105 bpm. There is no ectopy. Poor baseline was noted. This was compared to a tracing from September 24, 2022. No changes were noted. Cardiac Monitoring: An order was placed for continuous cardiac monitoring. The monitor shows a rate of 91 bpm with sinus rhythm Laboratory studies: As stated above and show below. Imaging studies: See below. Radiographic imaging was reviewed by myself Consultation(s): I discussed this case with Dr. Velazquez who is on-call for the [facility] hospitalist group. He will evaluate the patient in the emergency department for further management and disposition. Past Med/Surg History Medical History Abdominal pain Abdominal pain Acute CVA (cerebrovascular accident) Acute gastritis Altered mental status Altered mental status Anxiety Cerebellar infarct Cervical dysplasia Chest pain Chest pain Chronic skin ulcer of right ear Chronic skin ulcer of right ear Constipation CVA (cerebral vascular accident) Depression with anxiety Diabetes Diabetic femoral mononeuropathy Diabetic peripheral neuropathy Diarrhea Dizziness DKA (diabetic ketoacidoses) Dyslipidemia Elevated lactic acid level Encounter for routine gynecological examination Fecal impaction GERD (gastroesophageal reflux disease) Gout H/O: stroke History of anemia HNP (herniated nucleus pulposus), lumbar Hyperglycemia Hyperglycemia Hyperglycemia Hyperlipidemia Hypertension Hypoglycemia Hypokalemia Hypotension Hypothyroidism Hypothyroidism Intractable low back pain Lactic acidemia Lower extremity weakness Lumbar stenosis with neurogenic claudication Lumbosacral radiculopathy Major depressive disorder Major depressive disorder, recurrent episode, severe with anxious distress Nausea & vomiting Neurological deficit present Polyneuropathy Postsurgical hypothyroidism Sensory ataxia Suicide attempt T2DM (type 2 diabetes mellitus) Tachycardia TIA (transient ischemic attack) Vertigo Weakness Wound, open, ear, external with complication Surgical History H/O cardiac catheterization H/O dilation and curettage H/O laparoscopy History of colposcopy with cervical biopsy History of dental surgery History of hysterectomy History of tonsillectomy History of total abdominal hysterectomy Previous back surgery Status post hysteroscopic ablation of endometrium Status post lumbar spine surgery for decompression of spinal cord Family History Mother , in her early 70s of some sort of cancer (patient not clear if it was breast cancer) Breast cancer Diabetes Grandmother Breast cancer Grandmother Breast cancer Unknown Colon cancer Father , Diet it age 78 of a myelodysplastic syndrome. He also had Deffsvl-Eiwum-Eaoqy disease. 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: No Beliefs That Will Affect Care: None marital status: significant other Current Living Situation: Spouse Current Living Situation Comment: lives w/ current occupational status: disabled current occupation: Patient used to work at [employer] for 23 years and then [employer] How many Children do You have: 2 other: Retired on disability from her back 3 years ago Feels Safe at Home: Yes Assistive Devices: Walker Allergies Allergies Allergy/AdvReac Type Severity Reaction Status Date / Time cisapride Allergy Intermediate Hives Verified 10/08/22 14:58 doxycycline Allergy Intermediate Rash Verified 10/08/22 14:58 gadobutrol [From Gadavist] Allergy Intermediate Hives Verified 10/08/22 14:58 lansoprazole Allergy Intermediate Hives Verified 10/08/22 14:58 Penicillins Allergy Intermediate Rash Verified 10/08/22 14:58 tetracycline Allergy Intermediate Rash Verified 10/08/22 14:58 Home Meds Home Medications Medication Instructions Recorded Confirmed mirtazapine 30 mg tablet 30 mg PO HS 05/04/18 10/08/22 vortioxetine 20 mg tablet 20 mg PO QPM 06/06/19 10/08/22 (Trintellix) flash glucose sensor (FreeStyle 06/16/21 09/24/22 Jose Francisco 14 Day Sensor kit) pen needle, diabetic 32 gauge x 10/18/21 09/24/2232" (BD Ultra-Fine Flores Pen Needle) docusate sodium 100 mg capsule 100 mg PO BID PRN Constipation 01/12/22 10/08/22 (Colace) ergocalciferol (vitamin D2) 1,250 1,250 mcg PO WK 03/24/22 10/08/22 mcg (50,000 unit) capsule insulin lispro 100 unit/mL 3 unit subcut TIDWMEAL 04/03/22 10/08/22 subcutaneous pen (Humalog KwikPen (U-100) Insulin) brexpiprazole 1 mg tablet (Rexulti) 1 mg PO HS 04/08/22 10/08/22 levothyroxine 112 mcg tablet 112 mcg PO DAILYBB 09/24/22 10/08/22 Previous Rx's Medication Instructions Recorded aspirin 81 mg tablet,delayed 81 mg PO QAM #30 tabs 03/02/19 release (Ecotrin Low Strength) canagliflozin 100 mg tablet 100 mg PO QAM #30 tabs 08/26/22 (Invokana) insulin glargine 100 unit/mL (3 16 unit (0.16 mL) subcut QAM #15 mL 09/25/22 mL) subcutaneous pen (Lantus Solostar U-100 Insulin) thiamine HCl (vitamin B1) 100 mg 100 mg PO QAM #30 tabs 09/26/22 tablet Results & Data (ED) Vital Signs Vital Signs - 24 hr 10/08/22 13:39 10/08/22 14:17 10/08/22 14:17 Temperature 36.1 C L Temperature Source Temporal Artery Scan Pulse Rate 106 H Pulse Rate [Apical] 97 H Pulse Rate from SpO2 Sensor Respiratory Rate 19 23 Blood Pressure 162/94 H Blood Pressure [Left Arm] 142/95 H Blood Pressure Mean 116 Blood Pressure Mean [Left Arm] 110 Pulse Oximetry 98 96 Oxygen Delivery Method Room Air Room Air Room Air Sepsis Recent Fever Within 48 Hours No Sepsis New/Unexplained Change in Mental Status N/A Sepsis Action Taken by Nursing No Action Required 10/08/22 15:01 10/08/22 15:01 10/08/22 15:30 Temperature Temperature Source Pulse Rate 92 H 92 H Pulse Rate [Apical] Pulse Rate from SpO2 Sensor 92 H 92 H Respiratory Rate 19 20 Blood Pressure 139/87 Blood Pressure [Left Arm] Blood Pressure Mean 104 Blood Pressure Mean [Left Arm] Pulse Oximetry 95 95 Oxygen Delivery Method Room Air Room Air Sepsis Recent Fever Within 48 Hours Sepsis New/Unexplained Change in Mental Status Sepsis Action Taken by Nursing 10/08/22 15:53 10/08/22 16:00 10/08/22 16:00 Temperature Temperature Source Pulse Rate 90 89 Pulse Rate [Apical] Pulse Rate from SpO2 Sensor 89 Respiratory Rate 19 Blood Pressure 139/82 Blood Pressure [Left Arm] Blood Pressure Mean 101 Blood Pressure Mean [Left Arm] Pulse Oximetry 96 Oxygen Delivery Method Room Air Sepsis Recent Fever Within 48 Hours Sepsis New/Unexplained Change in Mental Status Sepsis Action Taken by Nursing 10/08/22 16:30 Temperature Temperature Source Pulse Rate 91 H Pulse Rate [Apical] Pulse Rate from SpO2 Sensor 92 H Respiratory Rate 17 Blood Pressure Blood Pressure [Left Arm] Blood Pressure Mean Blood Pressure Mean [Left Arm] Pulse Oximetry 96 Oxygen Delivery Method Room Air Sepsis Recent Fever Within 48 Hours Sepsis New/Unexplained Change in Mental Status Sepsis Action Taken by Long-Term Medications Current Medication List: was personally reviewed by me Laboratory Data Attestation: I reviewed the patient's lab results. 10/08/22 14:08 10/08/22 14:08 Lab Results 10/08/22 10/08/22 10/08/22 Range/Units 14:08 14:08 14:08 WBC 11.41 H (4.8-10.8) K/ul RBC 4.84 (4.20-5.40) M/uL Hgb 14.3 (12.0-16.0) g/dl Hct 42.2 (37.0-47.0) % MCV 87.2 (80.0-100.0) fL MCH 29.5 (25.0-34.0) pg MCHC 33.9 (32.0-36.0) g/dL RDW Std Deviation 47.4 H (36.4-46.3) fL RDW Coeff of Maris 14.7 H (11.5-14.5) % Plt Count 362 (130-400) K/uL MPV 9.4 (9.4-12.4) fL Immature Gran % (Auto) 0.4 % Neut % (Auto) 64.2 % Lymph % (Auto) 29.3 % [place] % (Auto) 4.8 % Eos % (Auto) 0.9 % Baso % (Auto) 0.4 % Neut # (Auto) 7.33 H (1.40-6.50) K/uL Lymph # (Auto) 3.34 (1.2-3.4) K/uL [place] # (Auto) 0.55 (0.11-0.59) K/uL Eos # (Auto) 0.10 (0-0.50) K/uL Baso # (Auto) 0.05 (0-0.2) K/uL Immature Gran # (Auto) 0.04 (0.01-0.20) K/uL PT 10.4 (9.0-12.0) Seconds INR 1.0 (0.9-1.1) APTT 24.2 (21.0-31.0) Seconds PTT Ratio 0.9 Sodium 140 (136-145) mmol/L Potassium 4.1 (3.5-5.1) mmol/L Chloride 106 (98-107) mmol/L Carbon Dioxide 29 (21-32) mmol/L Anion Gap 5 (3-11) BUN 14 (6-23) mg/dl Creatinine 0.68 (0.6-1.2) mg/dl Est Cr Clr Drug Dosing 79.1 ml/min Est GFR ( Amer) 105.6 ml/min Est GFR (Non-Af Amer) 91.2 ml/min BUN/Creatinine Ratio 20.6 H (10-20) Glucose 147 H (70-99(Fasting)) mg/dl POC Glucose (70-99) mg/dl Calcium 9.9 (8.5-10.1) mg/dl Total Bilirubin 0.6 (0.2-1.0) mg/dl AST 33 (13-39) U/L ALT 51 (7-52) U/L Alkaline Phosphatase 116 H (34-104) U/L Troponin I High Sens 5.5 (0-14) pg/ml Total Protein 7.8 (6.0-8.3) gm/dl Albumin 4.3 (3.4-5.0) gm/dl Globulin 3.5 (2.5-4.0) gm/dl Albumin/Globulin Ratio 1.2 (0.9-2) Lipase 34 (11-82) U/L 10/08/22 Range/Units 14:08 WBC (4.8-10.8) K/ul RBC (4.20-5.40) M/uL Hgb (12.0-16.0) g/dl Hct (37.0-47.0) % MCV (80.0-100.0) fL MCH (25.0-34.0) pg MCHC (32.0-36.0) g/dL RDW Std Deviation (36.4-46.3) fL RDW Coeff of Maris (11.5-14.5) % Plt Count (130-400) K/uL MPV (9.4-12.4) fL Immature Gran % (Auto) % Neut % (Auto) % Lymph % (Auto) % [place] % (Auto) % Eos % (Auto) % Baso % (Auto) % Neut # (Auto) (1.40-6.50) K/uL Lymph # (Auto) (1.2-3.4) K/uL [place] # (Auto) (0.11-0.59) K/uL Eos # (Auto) (0-0.50) K/uL Baso # (Auto) (0-0.2) K/uL Immature Gran # (Auto) (0.01-0.20) K/uL PT (9.0-12.0) Seconds INR (0.9-1.1) APTT (21.0-31.0) Seconds PTT Ratio Sodium (136-145) mmol/L Potassium (3.5-5.1) mmol/L Chloride (98-107) mmol/L Carbon Dioxide (21-32) mmol/L Anion Gap (3-11) BUN (6-23) mg/dl Creatinine (0.6-1.2) mg/dl Est Cr Clr Drug Dosing ml/min Est GFR ( Amer) ml/min Est GFR (Non-Af Amer) ml/min BUN/Creatinine Ratio (10-20) Glucose (70-99(Fasting)) mg/dl POC Glucose 140 H (70-99) mg/dl Calcium (8.5-10.1) mg/dl Total Bilirubin (0.2-1.0) mg/dl AST (13-39) U/L ALT (7-52) U/L Alkaline Phosphatase (34-104) U/L Troponin I High Sens (0-14) pg/ml Total Protein (6.0-8.3) gm/dl Albumin (3.4-5.0) gm/dl Globulin (2.5-4.0) gm/dl Albumin/Globulin Ratio (0.9-2) Lipase (11-82) U/L Administered Medications Discontinued Medications Sodium Chloride (Nss) 500 mls @ 999 mls/hr IV .Q31M STA Stop: 10/08/22 14:26 Last Infusion: 10/08/22 14:50 Dose: 0 mls/hr Documented By: Admin: 10/08/22 14:19 Dose: 999 mls/hr Documented By: BRODIE Lorazepam (Lorazepam 2 Mg/1 Ml Vial) 0.5 mg IV NOW STA Stop: 10/08/22 13:57 Last Admin: 10/08/22 14:21 Dose: 0.5 mg Documented By: BRODIE Ondansetron HCl (Ondansetron Inj 2 Mg/Ml 2 Ml Vial) 4 mg IV NOW STA Stop: 10/08/22 13:57 Last Admin: 10/08/22 14:20 Dose: 4 mg Documented By: BRODIE Imaging Data Attestation: I personally reviewed and interpreted this imaging study as follows: My Impression: CT of the abdomen and pelvis was obtained. My interpretation is no definite obstruction, no free air, final report pending. Chest x-ray was obtained in the emergency department. My interpretation is no free air, no definite infiltrate. Final report pending. Radiologist's Impression: Abdomen/Pelvis CT 10/08/22 13:[address] WITHOUT CONTRAST CT DOSE: 600.93 mGy.cm HISTORY: Acute left upper quadrant abdominal pain LUQ Pain TECHNIQUE: Multiaxial CT images of the abdomen and pelvis were performed without contrast. A dose lowering technique was utilized adhering to the principles of ALARA. COMPARISON STUDY: CT abdomen pelvis 09/24/2022 FINDINGS: Mitral annular calcifications. Mild left basilar atelectasis. No pneumatosis or pneumoperitoneum. Unremarkable spleen and adrenal glands. Distended gallbladder is similar to prior. Liver is within normal limits. Mildly atrophic pancreas with parenchymal calcifications compatible with chronic pancreatitis. Mild nonspecific bilateral perinephric stranding. 1.7 cm probable cyst of the posterior interpolar left kidney. No urolith or hydronephrosis identified. Partial distention of the urinary bladder. Atherosclerosis of the aorta. No lymphadenopathy. No bowel obstruction or bowel wall thickening. Colonic diverticulosis. Mild to moderate colonic fecal retention. Normal appendix. Unremarkable soft tissues. No acute fracture. Discectomy with posterior interbody gabriela and screw fusion hardware at L4-S1. Lucent focus of the L3 vertebral body suggestive of a probable hemangioma. IMPRESSION: 1. No acute intra-abdominal or intrapelvic abnormality. 2. Unchanged gallbladder distention. 3. No bowel obstruction or bowel wall thickening. Normal appendix. ACT 112: Negative or not required by law. The above report was generated using voice recognition software. It may contain grammatical, syntax or spelling errors. Electronically signed by: Ino Flanagan M.D. 10/08/2022 2:49 PM Chest X-Ray 10/08/22 13:56 XR chest 1V portable HISTORY: 67 years-old Female voiting acute nausea with vomiting COMPARISON: Chest radiograph 09/24/2022 TECHNIQUE: AP view of the chest FINDINGS: The cardiomediastinal and hilar silhouettes are within normal limits. No pneumothorax, pleural effusion, airspace consolidation or overt pulmonary edema. Biopsy clip of the left breast. Bones appear grossly intact. IMPRESSION: No acute process. ACT 112: Negative or not required by law. The above report was generated using voice recognition software. It may contain grammatical, syntax or spelling errors. Electronically signed by: Ino Flanagan M.D. 10/08/2022 2:39 PM Discharge Plan Visit Data Chief Complaint: Nausea Stated Complaint: ABDOMINAL PAIN, NAUSEA ED Provider: Silverio Mohr Discharge Problem: Nausea & vomiting, Abdominal pain, acute, left upper quadrant Patient Disposition: Being Evaluated by Hospitalist Forms Stand Alone Forms: My [facility] Prescriptions Prescriptions: No Action Invokana 100 mg tablet 100 mg PO QAM Qty: 30 1RF insulin glargine [Lantus Solostar U-100 Insulin] 100 unit/mL (3 mL) insulin pen 16 unit subcut QAM Qty: 15 2RF (DME) FreeStyle Jose Francisco 14 Day Sensor Kit See Rx Instructions .Route Rx Instructions: As directed (DME) pen needle, diabetic [BD Ultra-Fine Flores Pen Needle] 32 gauge x 5/32" needle See Rx Instructions miscellaneous .MEDSUPPLY Rx Instructions: Inject insulin once daily aspirin [Ecotrin Low Strength] 81 mg Tablet,Delayed Release (Dr/Ec) 81 mg PO QAM Qty: 30 0RF Trintellix 20 mg tablet 20 mg PO QPM docusate sodium [Colace] 100 mg capsule 100 mg PO BID PRN (Reason: Constipation) mirtazapine 30 mg tablet 30 mg PO HS ergocalciferol (vitamin D2) 1,250 mcg (50,000 unit) capsule 1,250 mcg PO WK Rx Instructions: insulin lispro [Humalog KwikPen Insulin] 100 unit/mL insulin pen 3 unit SUBCUT TIDWMEAL Rexulti 1 mg tablet 1 mg PO HS levothyroxine 112 mcg tablet 112 mcg PO DAILYBB thiamine HCl (vitamin B1) 100 mg Tablet 100 mg PO QAM Qty: 30 0RF Rx Instructions: Over the counter Referrals Referrals: Andry Kerr MD [Primary Care Provider] - Nausea & vomiting Qualifiers: Vomiting type: unspecified Qualified Code(s): R11.2 - Nausea with vomiting, unspecified
[2022-10-08 14:29] LABS: Basophils # (auto) 0.05 K/uL (0-0.2); Basophils % (auto) 0.4 %; Eosinophils % (auto) 0.9 %; Hematocrit (blood only) 42.2 % (37.0-47.0); Hemoglobin 14.3 g/dl (12.0-16.0); Immature Granulocytes # (auto) 0.04 K/uL (0.01-0.20); Immature Granulocytes % (auto) 0.4 %; Lymphocytes # (auto) 3.34 K/uL (1.2-3.4); Lymphocytes % (auto) 29.3 %; Mean Corpuscular Hemoglobin 29.5 pg (25.0-34.0); Mean Corpuscular Hgb Conc 33.9 g/dL (32.0-36.0); Mean Corpuscular Volume 87.2 fL (80.0-100.0); Mean Platelet Volume 9.4 fL (9.4-12.4); Monocytes # (auto) 0.55 K/uL (0.11-0.59); Monocytes % (auto) 4.8 %; Neutrophils # (auto) 7.33 K/uL (1.40-6.50); Neutrophils % (auto) 64.2 %; Platelet Count 362 K/uL (130-400); RDW Coefficient of Variation 14.7 % (11.5-14.5); RDW Standard Deviation 47.4 fL (36.4-46.3); Red Blood Count 4.84 M/uL (4.20-5.40); White Blood Count 11.41 K/ul (4.8-10.8)
--- NOTE | 2022-10-08 14:40 | XRay Report ---
XR chest 1V portable HISTORY: 67 years-old Female voiting acute nausea with vomiting COMPARISON: Chest radiograph 09/24/2022 TECHNIQUE: AP view of the chest FINDINGS: The cardiomediastinal and hilar silhouettes are within normal limits. No pneumothorax, pleural effusi on, airspace consolidation or overt pulmonary edema. Biopsy clip of the left breast. Bones appear kevin ssly intact. IMPRESSION: No acute process. ACT 112: Negative or not required by law. The above report was generated using voice recognition software. It may contain grammatical, syntax o r spelling errors. Electronically signed by: Ino Flanagan M.D. 10/08/2022 2:39 PM
[2022-10-08 14:45] LABS: Albumin Level 4.3 gm/dl (3.4-5.0); Bilirubin,Total 0.6 mg/dl (0.2-1.0); Calcium 9.9 mg/dl (8.5-10.1); Potassium 4.1 mmol/L (3.5-5.1)
--- NOTE | 2022-10-08 14:50 | CT Scan Report ---
ABDOMEN AND PELVIS CT WITHOUT CONTRAST CT DOSE: 600.93 mGy.cm HISTORY: Acute left upper quadrant abdominal pain LUQ Pain TECHNIQUE: Multiaxial CT images of the abdomen and pelvis were performed without contrast. A dose lo wering technique was utilized adhering to the principles of ALARA. COMPARISON STUDY: CT abdomen pelvis 09/24/2022 FINDINGS: Mitral annular calcifications. Mild left basilar atelectasis. No pneumatosis or pneumoperit oneum. Unremarkable spleen and adrenal glands. Distended gallbladder is similar to prior. Liver is wi thin normal limits. Mildly atrophic pancreas with parenchymal calcifications compatible with chronic pancreatitis. Mild nonspecific bilateral perinephric stranding. 1.7 cm probable cyst of the posterior interpolar le ft kidney. No urolith or hydronephrosis identified. Partial distention of the urinary bladder. Athero sclerosis of the aorta. No lymphadenopathy. No bowel obstruction or bowel wall thickening. Colonic diverticulosis. Mild to moderate colonic fecal retention. Normal appendix. Unremarkable soft tissues. No acute fracture. Discectomy with posterior interbody gabriela and screw fusion hardware at L4-S1. Lucent focus of the L3 vertebral body suggestive of a probable hemangioma. IMPRESSION: 1. No acute intra-abdominal or intrapelvic abnormality. 2. Unchanged gallbladder distention. 3. No bowel obstruction or bowel wall thickening. Normal appendix. ACT 112: Negative or not required by law. The above report was generated using voice recognition software. It may contain grammatical, syntax o r spelling errors. Electronically signed by: Ino Flanagan M.D. 10/08/2022 2:49 PM
[2022-10-08 14:51] LABS: Albumin Globulin Ratio 1.2 (0.9-2); BUN Creatinine Ratio 20.6 (10-20); Creatinine Clr Calc Pharmacy 79.1 ml/min; Est GFR (African American) 105.6 ml/min; Est GFR (Non-African American) 91.2 ml/min; Globulin 3.5 gm/dl (2.5-4.0); Total Protein 7.8 gm/dl (6.0-8.3)
[2022-10-08 14:55] LABS: Partial Thromboplastin Ratio 0.9; Partial Thromboplastin Time 24.2 Seconds (21.0-31.0); Prothrombin Time 10.4 Seconds (9.0-12.0)
[2022-10-08 14:56] LABS: Troponin I High Sensitivity 5.5 pg/ml (0-14)
[2022-10-08] MEDS ORDERED: PROMETHAZINE HCL 12.5 MG in SODIUM CHLORIDE 0.9% 50 ML IV STA (16:47)
[2022-10-08] MEDS ORDERED: PROMETHAZINE 12.5 MG/50.5 ML NSS IV ONE (17:03)
[2022-10-08 17:13] LABS: Appearance Urine Clear (Clear); Bacteria Urine Automated Negative (Negative); Bilirubin Urine Negative (Negative); Blood Urine Negative (Negative); Color Urine Yellow; Glucose Urine UA 3+ (Negative); Ketones Urine 1+ (Negative); Leukocyte Esterase Urine Negative (Negative); Nitrite Urine Negative (Negative); Protein Urine Trace (Negative); RBC Urine Automated 0-4 /hpf (0-4); Specific Gravity Urine 1.041 (1.000-1.030); Urobilinogen Urine Negative (Negative)
--- NOTE | 2022-10-08 17:41 | History & Physical Report ---
Date of Service October 08, 2022 Assessment & Plan (1) Abdominal pain: Plan: Nausea/vomiting/diarrhea 2 days, worsening. Patient with global weakness and inability to keep down food at home. Offered to return home with close PCP follow-up, patient uncomfortable with this and is feels weak and reports is alone at home CTA/P without acute infectious pathology. Recent norovirus. CTA/P shows moderate colonic retention/stool burden. ?Overflow diarrhea, and ?Diabetic gastroparesis with slow motility and high stool burden resulting in abdominal discomfort Bowel regimen ordered If patient with poor GI transit and failing to improve erythromycin/prokinetic trial - Symptomatic care, clears at thsi time - PT/OT/CM (2) Hypothyroidism: Plan: Hypothyroidism Continue Synthroid - TSH pending (3) Major depressive disorder, recurrent episode, severe with anxious distress: Plan: MDD Continued on mirtazapine/Rexulti/Trintellix ?Restlessness/akasthesia -Benztropine trial may be reasonable in the future, defer at this time due to risk of paralytic ileus/constipation worsening admitting symptoms (4) T2DM (type 2 diabetes mellitus): Plan: Type II DM Glucose checks AC/at bedtime Goal BSG [id number] Weight-based sliding scale/SSI ordered Hold home antiglycemic Lantus 7 twice daily, CF 60, ratio 90 (5) GERD (gastroesophageal reflux disease): Plan: - PPI pending History of Present Illness Primary Care Provider: Andry Kerr MD Urszula is a 67-year-old female with a past medical history of type 2 diabetes, hyperlipidemia, GERD, chronic abdominal pain, and major depressive disorder who presents with several days of weakness and 1 to 2 days of nausea/vomiting and inability to keep any food down. Was diagnosed last month with norovirus. Patient reports that she is currently nauseous and is afraid to eat due to her nausea. Last had vomiting several hours ago. Has had liquid diarrhea without blood or melena. No fever, chills, sweats, lightheadedness, dizziness, chest pain, chest pressure. Abdomen is diffusely slightly achy, but does not worsen with the pressure. Has chronic shakes in her arms and legs bilaterally which have not changed. Patient is on Trintellix, mirtazapine. She reports that her antidiabetic medications were held during her last hospitalization, but were resumed afterward and currently takes canagliflozin, insulin, and no metformin. Offered return home with symptomatic care, bowel regimen for stool burden and suspected overflow, and close PCP follow-up. Patient feels that due to her inability to take in food for 2 days, worsening over the last 2 days, and weakness does not feel safe returning home and notes that she is also home alone for most of the day. No alcohol or tobacco use. Allergies reviewed. Family history noncontributory. Allergies Allergy/AdvReac Type Severity Reaction Status Date / Time cisapride Allergy Intermediate Hives Verified 10/08/22 14:58 doxycycline Allergy Intermediate Rash Verified 10/08/22 14:58 gadobutrol [From Gadavist] Allergy Intermediate Hives Verified 10/08/22 14:58 lansoprazole Allergy Intermediate Hives Verified 10/08/22 14:58 Penicillins Allergy Intermediate Rash Verified 10/08/22 14:58 tetracycline Allergy Intermediate Rash Verified 10/08/22 14:58 Home Medications Medication Instructions Recorded Confirmed Type mirtazapine 30 mg tablet 30 mg PO HS 05/04/18 10/08/22 History aspirin 81 mg tablet,delayed 81 mg PO QAM #30 tabs 03/02/19 10/08/22 Rx release (Ecotrin Low Strength) vortioxetine 20 mg tablet 20 mg PO QPM 06/06/19 10/08/22 History (Trintellix) flash glucose sensor (FreeStyle 06/16/21 09/24/22 History Jose Francisco 14 Day Sensor kit) pen needle, diabetic 32 gauge x 10/18/21 09/24/22 History 5/32" (BD Ultra-Fine Flores Pen Needle) docusate sodium 100 mg capsule 100 mg PO BID PRN Constipation 01/12/22 10/08/22 History (Colace) ergocalciferol (vitamin D2) 1,250 1,250 mcg PO WK 03/24/22 10/08/22 History mcg (50,000 unit) capsule insulin lispro 100 unit/mL 3 unit subcut TIDWMEAL 04/03/22 10/08/22 History subcutaneous pen (Humalog KwikPen (U-100) Insulin) brexpiprazole 1 mg tablet (Rexulti) 1 mg PO HS 04/08/22 10/08/22 History canagliflozin 100 mg tablet 100 mg PO QAM #30 tabs 08/26/22 10/08/22 Rx (Invokana) levothyroxine 112 mcg tablet 112 mcg PO DAILYBB 09/24/22 10/08/22 History insulin glargine 100 unit/mL (3 16 unit (0.16 mL) subcut QAM #15 mL 09/25/22 10/08/22 Rx mL) subcutaneous pen (Lantus Solostar U-100 Insulin) thiamine HCl (vitamin B1) 100 mg 100 mg PO QAM #30 tabs 09/26/22 10/08/22 Rx tablet Past Med/Surg History Medical History Abdominal pain Abdominal pain Acute CVA (cerebrovascular accident) Acute gastritis Altered mental status Altered mental status Anxiety Cerebellar infarct Cervical dysplasia Chest pain Chest pain Chronic skin ulcer of right ear Chronic skin ulcer of right ear Constipation CVA (cerebral vascular accident) Depression with anxiety Diabetes Diabetic femoral mononeuropathy Diabetic peripheral neuropathy Diarrhea Dizziness DKA (diabetic ketoacidoses) Dyslipidemia Elevated lactic acid level Encounter for routine gynecological examination Fecal impaction GERD (gastroesophageal reflux disease) Gout H/O: stroke History of anemia HNP (herniated nucleus pulposus), lumbar Hyperglycemia Hyperglycemia Hyperglycemia Hyperlipidemia Hypertension Hypoglycemia Hypokalemia Hypotension Hypothyroidism Hypothyroidism Intractable low back pain Lactic acidemia Lower extremity weakness Lumbar stenosis with neurogenic claudication Lumbosacral radiculopathy Major depressive disorder Major depressive disorder, recurrent episode, severe with anxious distress Nausea & vomiting Neurological deficit present Polyneuropathy Postsurgical hypothyroidism Sensory ataxia Suicide attempt T2DM (type 2 diabetes mellitus) Tachycardia TIA (transient ischemic attack) Vertigo Weakness Wound, open, ear, external with complication Surgical History H/O cardiac catheterization H/O dilation and curettage H/O laparoscopy History of colposcopy with cervical biopsy History of dental surgery History of hysterectomy History of tonsillectomy History of total abdominal hysterectomy Previous back surgery Status post hysteroscopic ablation of endometrium Status post lumbar spine surgery for decompression of spinal cord Family History Mother , in her early 70s of some sort of cancer (patient not clear if it was breast cancer) Breast cancer Diabetes Grandmother Breast cancer Grandmother Breast cancer Unknown Colon cancer Father , Diet it age 78 of a myelodysplastic syndrome. He also had Kelvgbf-Mjdke-Neepe disease. Myelodysplasia (myelodysplastic syndrome) Vegfnxq-Arlys-Jfdzj disease Heart disease Brother Uzneumz-Mczow-Qnmkc disease Other No pertinent family history in first degree relatives Social History Smoking Status: Never smoker Hx Alcohol Use: No Hx Substance Use: No Preferred Language: Lao Communication Ability: Effective Manager Community Relations Required: No Beliefs That Will Affect Care: None marital status: significant other Current Living Situation: Spouse Current Living Situation Comment: lives w/ current occupational status: disabled current occupation: Patient used to work at [employer] for 23 years and then [employer] How many Children do You have: 2 other: Retired on disability from her back 3 years ago Feels Safe at Home: Yes Assistive Devices: Walker Review of Systems Review of Systems: All systems reviewed & are unremarkable except as noted in HPI & below Physical Exam Physical Exam: General: A&Ox3. NAD. Cooperative. HEENT: Atraumatic, normocephalic.Vision/hearing intact Pulm: CTAB A&P. -wheezes, -rales, -rhonchi. Symmetrical chest rise. No increased work of breathing. No respiratory distress. Cardiac: tachycardic, -mrg. Radial pulses intact and symmetrical. Abdominal: Nontender, nondistended, soft. BS present. Ext: warm, dry. Resting intermittent tremor/restlessness which pt is able to quiet with focus. Sensation/strength intact in distal extremities. Results & Data Results & Data ([facility]) Vital Signs (Past 12 Hours) Vital Signs Temp Pulse Pulse Resp BP BP Pulse Ox 10/08/22 16:30 91 H 17 96 10/08/22 16:00 89 19 96 10/08/22 16:00 139/82 10/08/22 15:53 90 10/08/22 15:30 92 H 20 95 10/08/22 15:01 139/87 10/08/22 15:01 92 H 19 95 10/08/22 14:17 97 H 23 142/95 H 96 10/08/22 14:17 10/08/22 13:39 36.1 C L 106 H 19 162/94 H 98 O2 Del Method 10/08/22 16:30 Room Air 10/08/22 16:00 Room Air 10/08/22 16:00 10/08/22 15:53 10/08/22 15:30 Room Air 10/08/22 15:01 10/08/22 15:01 Room Air 10/08/22 14:17 Room Air 10/08/22 14:17 Room Air 10/08/22 13:39 Room Air Supervising Physician Co-Signing Physician Notes DVT prophylaxis: Lovenox Disposition: Medical surgical Diet: Clears CODE STATUS: Full code PG Care Time/CCT Total # of Minutes Spent Total Time Spent with Patient: Total time spent is greater than 50% in coordination of care (as documented) at patient's floor/unit and/or counseling patient: Coding Level of Care Code 29619 INT INP/OBS CARE 2/55MIN Diagnoses Abdominal pain R10.9 Hypothyroidism E03.9 Major depressive disorder, recurrent episode, severe with anxious distress F33.2 T2DM (type 2 diabetes mellitus) E11.9 GERD (gastroesophageal reflux disease) K21.9
--- NOTE | 2022-10-08 18:17 | Emergency Department Note ---
ED Visit Note Patient signed out to me by Dr. Mohr pending evaluation by the inpatient hospitalist service. Urinalysis was unremarkable for any urinary tract i nfection. Patient to be admitted to inpatient hospital service for further evaluation and management. .
[2022-10-08] MEDS ORDERED: ACETAMINOPHEN 325 MG TAB PO PRN (22:33)
[2022-10-08] MEDS ORDERED: GLUCAGON FOR INJ 1 MG VIAL SQ PRN (22:33)
[2022-10-08] MEDS ORDERED: MAGNESIUM HYDROXIDE SUSP 30 ML UDC PO PRN (22:33)
[2022-10-08] MEDS ORDERED: ONDANSETRON INJ 2 MG/ML 2 ML VIAL IV PRN (22:33)
[2022-10-08] MEDS ORDERED: ALUMINUM/MAGNESIUM SUSP 30 ML UDC PO PRN (22:33)
[2022-10-08] MEDS ORDERED: CARBOHYDRATES FOR HYPOGLYCEMIA PO PRN (22:33)
[2022-10-08] MEDS ORDERED: MIRTAZAPINE TAB 15 MG TAB PO SCH (22:33)
[2022-10-08] MEDS ORDERED: GLUCOSE 10 TAB/TUBE PO PRN (22:33)
[2022-10-08] MEDS ORDERED: DEXTROSE 50% 50 ML SYRINGE IV PRN (22:33)
[2022-10-08] MEDS ORDERED: GLUCOSE 40% GEL 15 GM TUBE PO PRN (22:33)
[2022-10-08] MEDS: INSULIN ASPART PER UNIT SC SCH (22:59)
[2022-10-08] MEDS: POLYETHYLENE (MIRALAX) 17 GM PACK PO SCH (23:08)
[2022-10-08] MEDS: DOCUSATE SODIUM 100 MG CAP PO SCH (23:08)
[2022-10-08] MEDS: LANTUS PER UNIT CHARGE SQ SCH (23:16)
[2022-10-08] MEDS: TRINTELLIX~ORDER AWAITING ACTION SCH (23:16)
[2022-10-09 06:27] LABS: Basophils # (auto) 0.06 K/uL (0-0.2); Basophils % (auto) 0.6 %; Eosinophils # (auto) 0.15 K/uL (0-0.50); Eosinophils % (auto) 1.6 %; Hematocrit (blood only) 42.5 % (37.0-47.0); Hemoglobin 13.9 g/dl (12.0-16.0); Immature Granulocytes # (auto) 0.04 K/uL (0.01-0.20); Immature Granulocytes % (auto) 0.4 %; Lymphocytes # (auto) 3.85 K/uL (1.2-3.4); Mean Corpuscular Hgb Conc 32.7 g/dL (32.0-36.0); Mean Corpuscular Volume 88.7 fL (80.0-100.0); Mean Platelet Volume 9.7 fL (9.4-12.4); Monocytes # (auto) 0.61 K/uL (0.11-0.59); Monocytes % (auto) 6.3 %; Neutrophils # (auto) 4.91 K/uL (1.40-6.50); Neutrophils % (auto) 51.1 %; Platelet Count 329 K/uL (130-400); RDW Coefficient of Variation 14.6 % (11.5-14.5); RDW Standard Deviation 46.9 fL (36.4-46.3); Red Blood Count 4.79 M/uL (4.20-5.40); White Blood Count 9.62 K/ul (4.8-10.8)
[2022-10-09] MEDS ORDERED: LEVOTHYROXINE SODIUM 112 MCG TABLET PO SCH (06:30)
[2022-10-09 06:42] LABS: BUN Creatinine Ratio 18.2 (10-20); Calcium 9.6 mg/dl (8.5-10.1); Creatinine Clr Calc Pharmacy 81.3 ml/min; Est GFR (African American) 106.7 ml/min; Est GFR (Non-African American) 92.1 ml/min; Magnesium 1.9 mg/dl (1.7-2.4); Potassium 3.4 mmol/L (3.5-5.1)
[2022-10-09] MEDS: TRINTELLIX~ORDER AWAITING ACTION SCH ×2 (07:31→15:25)
[2022-10-09] MEDS ORDERED: THIAMINE HCL 100 MG TAB PO SCH (09:00)
[2022-10-09] MEDS ORDERED: ASPIRIN 81 MG ECTAB PO SCH (09:00)
[2022-10-09] MEDS ORDERED: PANTOprazole 40 MG TAB PO SCH (09:00)
[2022-10-09] MEDS: DOCUSATE SODIUM 100 MG CAP PO SCH (09:10)
[2022-10-09] MEDS: POLYETHYLENE (MIRALAX) 17 GM PACK PO SCH (09:11)
[2022-10-09] MEDS: INSULIN ASPART PER UNIT SC SCH ×3 (09:16→17:47)
[2022-10-09] MEDS: LANTUS PER UNIT CHARGE SQ SCH (09:17)
[2022-10-09] MEDS ORDERED: POTASSIUM CHLORIDE CRTAB 20 MEQ TABCR PO STA (12:51)
--- NOTE | 2022-10-09 12:54 | Discharge Summary ---
Date of Service October 09, 2022 Admission HPI Per Admitting Provider Urszula is a 67-year-old female with a past medical history of type 2 diabetes, hyperlipidemia, GERD, chronic abdominal pain, and major depressive disorder who presents with several days of weakness and 1 to 2 days of nausea/vomiting and inability to keep any food down. Was diagnosed last month with norovirus. Patient reports that she is currently nauseous and is afraid to eat due to her nausea. Last had vomiting several hours ago. Has had liquid diarrhea without blood or melena. No fever, chills, sweats, lightheadedness, dizziness, chest pain, chest pressure. Abdomen is diffusely slightly achy, but does not worsen with the pressure. Has chronic shakes in her arms and legs bilaterally which have not changed. Patient is on Trintellix, mirtazapine. She reports that her antidiabetic medications were held during her last hospitalization, but were resumed afterward and currently takes canagliflozin, insulin, and no metformin. Offered return home with symptomatic care, bowel regimen for stool burden and suspected overflow, and close PCP follow-up. Patient feels that due to her inability to take in food for 2 days, worsening over the last 2 days, and weakness does not feel safe returning home and notes that she is also home alone for most of the day. No alcohol or tobacco use. Allergies reviewed. Family history noncontributory. Principal Diagnosis 1. Intractable nausea and abdominal pain with recent norovirus infection 2. Failure to thrive 3. Hypokalemia - treated Discharge Exam GENERAL: 67 yo wd/wn wf who appears older than stated age. NAD. LUNGS: Clear to auscultation bilaterally. No W/R/R. CARDIOVASCULAR: Regular rate and rhythm. No M/G/R. No JVD. ABDOMEN: Soft, non-tender and non-distended. Bs normoactive x 4 quad. Discharge Data Allergies Allergy/AdvReac Type Severity Reaction Status Date / Time cisapride Allergy Intermediate Hives Verified 10/08/22 14:58 doxycycline Allergy Intermediate Rash Verified 10/08/22 14:58 gadobutrol [From Gadavist] Allergy Intermediate Hives Verified 10/08/22 14:58 lansoprazole Allergy Intermediate Hives Verified 10/08/22 14:58 Penicillins Allergy Intermediate Rash Verified 10/08/22 14:58 tetracycline Allergy Intermediate Rash Verified 10/08/22 14:58 Consultations 10/08/22 16:58 ED Decision to Admit Stat Ordered Studies Abdomen/Pelvis CT 10/08/22 13:[address] WITHOUT CONTRAST CT DOSE: 600.93 mGy.cm HISTORY: Acute left upper quadrant abdominal pain LUQ Pain TECHNIQUE: Multiaxial CT images of the abdomen and pelvis were performed without contrast. A dose lowering technique was utilized adhering to the principles of ALARA. COMPARISON STUDY: CT abdomen pelvis 09/24/2022 FINDINGS: Mitral annular calcifications. Mild left basilar atelectasis. No pneumatosis or pneumoperitoneum. Unremarkable spleen and adrenal glands. Distended gallbladder is similar to prior. Liver is within normal limits. Mildly atrophic pancreas with parenchymal calcifications compatible with chronic pancreatitis. Mild nonspecific bilateral perinephric stranding. 1.7 cm probable cyst of the posterior interpolar left kidney. No urolith or hydronephrosis identified. Partial distention of the urinary bladder. Atherosclerosis of the aorta. No lymphadenopathy. No bowel obstruction or bowel wall thickening. Colonic diverticulosis. Mild to moderate colonic fecal retention. Normal appendix. Unremarkable soft tissues. No acute fracture. Discectomy with posterior interbody gabriela and screw fusion hardware at L4-S1. Lucent focus of the L3 vertebral body suggestive of a probable hemangioma. IMPRESSION: 1. No acute intra-abdominal or intrapelvic abnormality. 2. Unchanged gallbladder distention. 3. No bowel obstruction or bowel wall thickening. Normal appendix. ACT 112: Negative or not required by law. The above report was generated using voice recognition software. It may contain grammatical, syntax or spelling errors. Electronically signed by: Ino Flanagan M.D. 10/08/2022 2:49 PM Chest X-Ray 10/08/22 13:56 XR chest 1V portable HISTORY: 67 years-old Female voiting acute nausea with vomiting COMPARISON: Chest radiograph 09/24/2022 TECHNIQUE: AP view of the chest FINDINGS: The cardiomediastinal and hilar silhouettes are within normal limits. No pneumothorax, pleural effusion, airspace consolidation or overt pulmonary edema. Biopsy clip of the left breast. Bones appear grossly intact. IMPRESSION: No acute process. ACT 112: Negative or not required by law. The above report was generated using voice recognition software. It may contain grammatical, syntax or spelling errors. Electronically signed by: Ino Flanagan M.D. 10/08/2022 2:39 PM Hospital Course (1) Abdominal pain: Nausea/vomiting/diarrhea 2 days, worsening. Patient with global weakness and inability to keep down food at home. Offered to return home with close PCP follow-up, patient uncomfortable with this and is feels weak and reports is alone at home CTA/P without acute infectious pathology. Recent norovirus. CTA/P shows moderate colonic retention/stool burden. ?Overflow diarrhea, and ?Diabetic gastroparesis with slow motility and high stool burden resulting in abdominal discomfort Bowel regimen ordered Pt endorses feeling better today, tolerating clear liquids ordered - diet advanced for lunch of which she tolerated - Will refer to GI as outpatient and can undergo further work up if symptoms persist (2) Hypothyroidism: Hypothyroidism Continue Synthroid. TSH normal 4.140 (3) Major depressive disorder, recurrent episode, severe with anxious distress: MDD Continued on mirtazapine/Rexulti/Trintellix ?Restlessness/akasthesia - Benztropine trial may be reasonable in the future, defer at this time due to risk of paralytic ileus/constipation worsening admitting symptoms (4) T2DM (type 2 diabetes mellitus): Type II DM Resume Lantus regimen at home (will need to only take 7 units tonight d/t splitting lantus during her hospital stay) - Resume analog per home dosing - Continue diabetic diet (5) GERD (gastroesophageal reflux disease): - PPI (6) Failure to thrive: - Has 4 hours of caregivers at home 5 days a week - Is on the waiting list for a mixer and scaler bed at [facility] - Will have case management assist in arranging home SN, PT and OT services Plan Patient is medically and hemodynamically stable for discharge home today. Does not meet admission criteria. Advise close follow up with PCP and will arrange for GI referral. Treated her hypokalemia with 40meq PO of KCl. Case management to assist in arranging home PT/OT. Above plan of care has been d/w Dr. Chun who is in agreement with aforementioned. Total Time Total Time Spent Total Time Spent (In Minutes): <30 minutes Discharge Plan Discharge Items Patient Disposition: Home - Self-Care Reason For Visit: ABDOMINAL PAIN, NAUSEA Discharge Diagnosis: nausea Activity: Resume your previous activity Non-emergency contact: Primary Care Provider Call non-emergency contact if: you have any medication questions Follow-up/Referrals: Cornelius Sanabria MD [Physician] - (Persistent n/v) Andry Kerr MD [Primary Care Provider] - Diet: Carb Consistent or DM2 Addtl Attending Provider Instructions: You were hospitalized due to stomach pain as well as nausea and vomiting. There were no findings to account for your symptoms on your labs or abdominal CT. Given the persistent nature of your symptoms, it is recommended that you see a stomach doctor or electronic lab technician. An appointment will be made for you on your behalf and we will contact you with the date and time of the appointment. For tonight, only take 7 units of Lantus before bed. Tomorrow (10/10) you can resume the usual 16 units of Lantus that you normally take. You are being prescribed Protonix once a day to take first thing in the morning before eating or drinking. This will help suppress stomach acid. A script has been sent to your pharmacy electronically. Follow up with your family doctor within 1 week of discharge. In the event of a medical emergency, call 911 or go to your nearest ER. For nonemergency questions, you can call the number listed on your discharge paperwork. Pending Studies at Discharge: No Stand-Alone Forms: My [facility] [employer], Smoking Cessation Medications and DC Order Prescriptions: New pantoprazole [Protonix] 40 mg tablet,delayed release (DR/EC) 40 mg PO DAILY Qty: 30 0RF Continued Invokana 100 mg tablet 100 mg PO QAM Qty: 30 1RF insulin glargine [Lantus Solostar U-100 Insulin] 100 unit/mL (3 mL) insulin pen 16 unit subcut QAM Qty: 15 2RF (DME) FreeStyle Jose Francisco 14 Day Sensor Kit See Rx Instructions .Route Rx Instructions: As directed (DME) pen needle, diabetic [BD Ultra-Fine Flores Pen Needle] 32 gauge x 5/32" needle See Rx Instructions miscellaneous .MEDSUPPLY Rx Instructions: Inject insulin once daily aspirin [Ecotrin Low Strength] 81 mg Tablet,Delayed Release (Dr/Ec) 81 mg PO QAM Qty: 30 0RF Trintellix 20 mg tablet 20 mg PO QPM docusate sodium [Colace] 100 mg capsule 100 mg PO BID PRN (Reason: Constipation) mirtazapine 30 mg tablet 30 mg PO HS ergocalciferol (vitamin D2) 1,250 mcg (50,000 unit) capsule 1,250 mcg PO WK Rx Instructions: insulin lispro [Humalog KwikPen Insulin] 100 unit/mL insulin pen 3 unit SUBCUT TIDWMEAL Rexulti 1 mg tablet 1 mg PO HS levothyroxine 112 mcg tablet 112 mcg PO DAILYBB thiamine HCl (vitamin B1) 100 mg Tablet 100 mg PO QAM Qty: 30 0RF Rx Instructions: Over the counter Discharge Orders: Discharge Order (Routine); Ordered 10/09/22 Ordered By: Denice Ba Admission Data Admit Date/Time: 10/08/22 17:36 Attending Provider: Medardo Chun Admit Provider: Tim Mckeon Primary Care Provider: Andry Kerr Other Providers: Tim Mckeon ; [place],Care Coding Level of Care Code 78733 IN/OBS DISCH 30 MIN/LESS Diagnoses Abdominal pain R10.9 Hypothyroidism E03.9 Major depressive disorder, recurrent episode, severe with anxious distress F33. 2 T2DM (type 2 diabetes mellitus) E11.9 GERD (gastroesophageal reflux disease) K21.9 Failure to thrive
--- NOTE | 2022-10-10 05:06 | Electrocardiogram Report ---
Test Reason : Blood Pressure : / mmHG Vent. Rate : 105 BPM Atrial Rate : 105 BPM P-R Int : 114 ms QRS Dur : 074 ms QT Int : 334 ms P-R-T Axes : 009 001 049 degrees QTc Int : 441 ms Poor data quality, interpretation may be adversely affected Sinus tachycardia Inferior infarct (cited on or before 24-SEP-2022) Abnormal ECG When compared with ECG of 24-SEP-2022 18:25, No significant change Confirmed by Dusty Muniz ([id number]) on 10/10/2022 5:06:24 AM Referred By: REFERRED SELF Confirmed By:Dusty Muniz
== END 2022-10-09 18:14 | disposition home or self-care (01) ==
LOC: 3W 13:36 → ED 13:36 → SUATTDRO 17:36 → 3W 21:49

== ENCOUNTER 2023-08-11 16:46 | Inpatient (IN) ==
[2023-08-11] MEDS ORDERED: SODIUM CHLORIDE 0.9% 1,000 ML IV ONE (17:03)
[2023-08-11 17:47] LABS: Base Excess VBG 0.3 mEq/L; HCO3 VBG 25 mmol/L; Oxygen Saturation VBG 92.3 %; PCO2 VBG 42 mmHg (38-50); PO2 VBG 64 mmHg; pH VBG 7.39 (7.36-7.41)
[2023-08-11 17:48] LABS: Basophils # (auto) 0.03 K/uL (0.00-0.20); Basophils % (auto) 0.3 %; Eosinophils # (auto) 0.18 K/uL (0.00-0.50); Hemoglobin 14.5 g/dl (12.0-16.0); Immature Granulocytes # (auto) 0.03 K/uL (0.01-0.20); Immature Granulocytes % (auto) 0.3 %; Lymphocytes # (auto) 3.28 K/uL (1.20-3.40); Lymphocytes % (auto) 36.5 %; Mean Corpuscular Hemoglobin 28.8 pg (25.0-34.0); Mean Corpuscular Hgb Conc 32.2 g/dL (32.0-36.0); Mean Corpuscular Volume 89.5 fL (80.0-100.0); Mean Platelet Volume 10.1 fL (9.4-12.4); Monocytes % (auto) 7.8 %; Neutrophils # (auto) 4.76 K/uL (1.40-6.50); Neutrophils % (auto) 53.1 %; Platelet Count 275 K/uL (130-400); RDW Coefficient of Variation 13.8 % (11.5-14.5); RDW Standard Deviation 44.8 fL (36.4-46.3); Red Blood Count 5.03 M/uL (4.20-5.40); White Blood Count 8.98 K/ul (4.8-10.8)
--- NOTE | 2023-08-11 17:56 | Emergency Department Note ---
Impression & Plan Hyperglycemia, Nausea, Hypomagnesemia, Heart palpitations ED Provider Note HISTORY OF PRESENT ILLNESS: Patient is a 68-year-old female presenting with hyperglycemia and palpitations. Patient reports "my blood sugars are all over the place." She states that she just changed her continuous glucose monitor sensor yesterday. She states that it keeps saying that she is over 300. She gave her daytime insulin today and at around noon checked her sugar and it was 67. She ate a bowl of cereal and some pretzel bites and states that her sugar then went up to 300 again. She reports she feels like her heart is racing. Denies any chest pain or shortness of breath. Reports "I just do not feel right." Denies any dysuria or hematuria. Reports nausea but no vomiting or abdominal pain. ROS: as above PHYSICAL EXAM: Constitutional: Patient appears in no acute distress. HENT: Head: Normocephalic and atraumatic. Eyes: EOMI, PERRL Mouth/Throat: Mucous membranes moist. Neck: Trachea midline. Neck supple. Cardiovascular: Tachycardic with regular rhythm. No murmurs, rubs or gallops. Intact distal pulses. Pulmonary/Chest: No respiratory distress. Breath sounds clear and equal bilaterally. No wheezes or rales. Abdominal: Abdomen soft, no tenderness, rebound or guarding. Musculoskeletal: No edema, tenderness or deformity noted. Skin: Warm and dry. No rash, erythema, pallor or cyanosis Psychiatric: Appropriate mood and affect for situation. Neurological: Alert and keenly responsive. CN II-XII grossly intact, moving all extremities equally and fully. MDM: - Vitals signs showed hypertension and tachycardia - History obtained via patient. Patient presents with hyperglycemia and palpitations. - Chronic conditions affecting care: hypothyroidism; DM-2; GERD; HLD; CVA; HTN - Differential diagnoses include, but are not limited to: DKA; hyperglycemia; UTI; ACS; electrolyte abnormality - Order placed for continuous cardiac monitoring. At this time, monitor showed rate of 117 bpm with normal sinus rhythm, per my interpretation. - External medical records reviewed. - EKG interpreted by myself showed normal sinus rhythm. Rate tachycardic at 126 bpm. QTc 440. No acute ischemic changes. - Laboratory workup interpreted by myself showed normal WBC; stable electrolytes; slightly elevated anion gap (12); hyperglycemia (glucose 395); hypomagnesemia (Mg 1.5); elevated A1c (7.8); transaminitis (AST 110; ALT 84); normal troponin - UA negative for infection. Noted to be hyperglycemic - VBG within normal limits - COVID/flu/RSV negative - Patient given 1L NS and 5 units insulin. Glucose trended down to 200s. Given 1g IV magnesium for electrolyte replacement - Discussed results with patient. Attempted to educate the patient on her insulin usage. However, she reports that she does not feel safe to go home and is worried that her sugars are so high. Unclear source for why her sugars are persistently elevated. The palpitations may be secondary to her hypomagnesemia. - Discussion was had with infant caregiver about patient's case and need for admission - Hospitalist consulted for admission - Patient admitted to [facility] for further evaluation and management. ASSESSMENT AND PLAN: Diagnosis: hyperglycemia; nausea; palpitations; hypomagnesemia Plan: admit Past Med/Surg History Medical History (Updated 08/11/23 @ 21:05 by Frieda Decker MD) Atrial tachycardia Elevated lactic acid level Hypothyroidism Elevated lactic acid level Hyperglycemia Chest pain Hyperglycemia Abdominal pain Lactic acidemia Abdominal pain Diarrhea Hypoglycemia History of anemia Gout Cervical dysplasia Diabetic peripheral neuropathy H/O: stroke Cerebellar infarct Acute CVA (cerebrovascular accident) Postsurgical hypothyroidism Altered mental status Vertigo Hypothyroidism Sensory ataxia Polyneuropathy Major depressive disorder Lumbosacral radiculopathy Hyperlipidemia GERD (gastroesophageal reflux disease) Encounter for routine gynecological examination Diabetic peripheral neuropathy 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 CVA (cerebral vascular accident) Chronic skin ulcer of right ear Depression with anxiety T2DM (type 2 diabetes mellitus) Weakness TIA (transient ischemic attack) Neurological deficit present Hyperglycemia Dizziness Wound, open, ear, external with complication Suicide attempt Major depressive disorder, recurrent episode, severe with anxious distress Lumbar stenosis with neurogenic claudication Lower extremity weakness Intractable low back pain Hypotension Hypokalemia Hypertension HNP (herniated nucleus pulposus), lumbar Fecal impaction Dyslipidemia DKA (diabetic ketoacidoses) Constipation Chest pain Anxiety Altered mental status Acute gastritis Diabetes Surgical History History of total abdominal hysterectomy H/O laparoscopy Status post hysteroscopic ablation of endometrium H/O dilation and curettage History of dental surgery History of colposcopy with cervical biopsy Previous back surgery History of tonsillectomy Status post lumbar spine surgery for decompression of spinal cord H/O cardiac catheterization History of hysterectomy Family History Mother , in her early 70s of some sort of cancer (patient not clear if it was breast cancer) Breast cancer Diabetes Grandmother Breast cancer Grandmother Breast cancer Unknown Colon cancer Father , Diet it age 78 of a myelodysplastic syndrome. He also had Bzwajkt-Uipni-Ymxjx disease. Myelodysplasia (myelodysplastic syndrome) Ucmkree-Lugpk-Voagn disease Heart disease Brother Kvpvqpq-Fgiow-Wfznl disease Other No pertinent family history in first degree relatives Social History Smoking Status: Never smoker Hx Alcohol Use: No Hx Substance Use: No Preferred Language: Japanese Communication Ability: Effective Communication Ability Comment: some difficulty with memory [employer] Supervisor Required: No Beliefs That Will Affect Care: None marital status: significant other Current Living Situation: Significant Other Current Living Situation Comment: lives w/ current occupational status: disabled current occupation: Patient used to work at [employer] for 23 years and then [employer] How many Children do You have: 2 other: Retired on disability from her back 3 years ago Feels Safe at Home: Yes Assistive Devices: Walker Allergies Allergies Allergy/AdvReac Type Severity Reaction Status Date / Time cisapride Allergy Intermediate Hives Verified 08/11/23 20:39 doxycycline Allergy Intermediate Rash Verified 08/11/23 20:39 gadobutrol [From Gadavist] Allergy Intermediate Hives Verified 08/11/23 20:39 lansoprazole Allergy Intermediate Hives Verified 08/11/23 20:39 Penicillins Allergy Intermediate Rash Verified 08/11/23 20:39 tetracycline Allergy Intermediate Rash Verified 08/11/23 20:39 Home Meds Home Medications Medication Instructions Recorded Confirmed mirtazapine 30 mg tablet 30 mg PO HS 05/04/18 08/11/23 vortioxetine 20 mg tablet 20 mg PO QPM 06/06/19 08/11/23 (Trintellix) flash glucose sensor (FreeStyle 06/16/21 05/21/23 Jose Francisco 14 Day Sensor kit) insulin lispro 100 unit/mL 3 unit subcut TIDWMEAL PRN DEPENDS 04/03/22 08/11/23 subcutaneous pen (Humalog KwikPen ON BSG (U-100) Insulin) brexpiprazole 1 mg tablet (Rexulti) 1 mg PO HS 04/08/22 08/11/23 Previous Rx's Medication Instructions Recorded aspirin 81 mg tablet,delayed 81 mg PO QAM #30 tabs 03/02/19 release (Ecotrin Low Strength) pen needle, diabetic 32 gauge x #100 ea 12/22/22" (BD Ultra-Fine Flores Pen Needle) insulin glargine 100 unit/mL (3 16 unit (0.16 mL) subcut QAM #15 mL 03/02/23 mL) subcutaneous pen (Lantus Solostar U-100 Insulin) levothyroxine 112 mcg tablet 112 mcg PO DAILYBB #90 tabs 05/22/23 metformin 1,000 mg tablet 1,000 mg PO BID #180 tabs 05/31/23 cholecalciferol (vitamin D3) 125 5,000 unit PO DAILY #30 caps 06/13/23 mcg (5,000 unit) capsule atorvastatin 20 mg tablet 20 mg PO QPM #90 tabs 07/09/23 canagliflozin 100 mg tablet 100 mg PO QAM #30 tabs 07/23/23 (Invokana) Results & Data (ED) Vital Signs Vital Signs - 24 hr 08/11/23 16:50 08/11/23 17:36 08/11/23 19:27 Temperature 36.8 C Temperature Source Temporal Artery Scan Pulse Rate 130 H 116 H 108 H Respiratory Rate 19 24 Blood Pressure 154/92 H 143/90 H Blood Pressure Mean 112 107 Pulse Oximetry 95 96 Oxygen Delivery Method Room Air Sepsis Recent Fever Within 48 Hours No Sepsis New/Unexplained Change in Mental Status N/A Sepsis Action Taken by Nursing No Action Required 08/11/23 19:30 Temperature Temperature Source Pulse Rate 107 H Respiratory Rate 20 Blood Pressure 136/92 Blood Pressure Mean 106 Pulse Oximetry 96 Oxygen Delivery Method Sepsis Recent Fever Within 48 Hours Sepsis New/Unexplained Change in Mental Status Sepsis Action Taken by Nursing Laboratory Data 08/11/23 17:28 08/11/23 17:28 Lab Results 08/11/23 08/11/23 08/11/23 Range/Units 17:28 17:30 17:46 WBC 8.98 (4.8-10.8) K/ul RBC 5.03 (4.20-5.40) M/uL Hgb 14.5 (12.0-16.0) g/dl Hct 45.0 (37.0-47.0) % MCV 89.5 (80.0-100.0) fL MCH 28.8 (25.0-34.0) pg MCHC 32.2 (32.0-36.0) g/dL RDW Std Deviation 44.8 (36.4-46.3) fL RDW Coeff of Maris 13.8 (11.5-14.5) % Plt Count 275 (130-400) K/uL MPV 10.1 (9.4-12.4) fL Immature Gran % (Auto) 0.3 % Neut % (Auto) 53.1 % Lymph % (Auto) 36.5 % [place] % (Auto) 7.8 % Eos % (Auto) 2.0 % Baso % (Auto) 0.3 % Neut # (Auto) 4.76 (1.40-6.50) K/uL Lymph # (Auto) 3.28 (1.20-3.40) K/uL [place] # (Auto) 0.70 H (0.11-0.59) K/uL Eos # (Auto) 0.18 (0.00-0.50) K/uL Baso # (Auto) 0.03 (0.00-0.20) K/uL Immature Gran # (Auto) 0.03 (0.01-0.20) K/uL VBG pH 7.39 (7.36-7.41) VBG pCO2 42 (38-50) mmHg VBG pO2 64 mmHg VBG HCO3 25 mmol/L VBG O2 Saturation 92.3 % VBG Base Excess 0.3 mEq/L Sodium 139 (136-145) mmol/L Potassium 4.2 (3.5-5.1) mmol/L Chloride 102 (98-107) mmol/L Carbon Dioxide 25 (21-32) mmol/L Anion Gap 12 H (3-11) BUN 18 (6-23) mg/dl Creatinine 0.70 (0.6-1.2) mg/dl Est Cr Clr Drug Dosing Not Reportable Est GFR ( Amer) 103.9 ml/min Est GFR (Non-Af Amer) 89.7 ml/min BUN/Creatinine Ratio 25.7 H (10-20) Glucose 395 H* (70-99(Fasting)) mg/dl POC Glucose 367 H* (70-99) mg/dl Estimat Average Glucose 177 mg/dl Hemoglobin A1c 7.8 H (4.5-5.6) % Calcium 11.2 H (8.6-10.3) mg/dl Magnesium 1.5 L (1.7-2.4) mg/dl Total Bilirubin 0.4 (0.2-1.0) mg/dl AST 110 H (13-39) U/L ALT 84 H (7-52) U/L Alkaline Phosphatase 160 H (34-104) U/L Troponin I High Sens 3.8 (0-14) pg/ml Total Protein 7.8 (6.0-8.3) gm/dl Albumin 4.4 (3.4-5.0) gm/dl Globulin 3.4 (2.5-4.0) gm/dl Albumin/Globulin Ratio 1.3 (0.9-2) Urine Color Yellow Urine Appearance Clear (Clear) Urine pH 5.0 (4.5-7.5) Ur Specific [place] 1.040 H (1.000-1.030) Urine Protein Negative (Negative) Urine Glucose (UA) 3+ H (Negative) Urine Ketones Negative (Negative) Urine Blood Negative (Negative) Urine Nitrite Negative (Negative) Urine Bilirubin Negative (Negative) Urine Urobilinogen Negative (Negative) Ur Leukocyte Esterase Negative (Negative) SARS-CoV-2 (PCR) (Negative) Influenza Type A (PCR) (Neg) Influenza Type B (PCR) (Neg) RSV (RT-PCR) (Neg) 08/11/23 08/11/23 08/11/23 Range/Units 18:56 19:28 20:22 WBC (4.8-10.8) K/ul RBC (4.20-5.40) M/uL Hgb (12.0-16.0) g/dl Hct (37.0-47.0) % MCV (80.0-100.0) fL MCH (25.0-34.0) pg MCHC (32.0-36.0) g/dL RDW Std Deviation (36.4-46.3) fL RDW Coeff of Maris (11.5-14.5) % Plt Count (130-400) K/uL MPV (9.4-12.4) fL Immature Gran % (Auto) % Neut % (Auto) % Lymph % (Auto) % [place] % (Auto) % Eos % (Auto) % Baso % (Auto) % Neut # (Auto) (1.40-6.50) K/uL Lymph # (Auto) (1.20-3.40) K/uL [place] # (Auto) (0.11-0.59) K/uL Eos # (Auto) (0.00-0.50) K/uL Baso # (Auto) (0.00-0.20) K/uL Immature Gran # (Auto) (0.01-0.20) K/uL VBG pH (7.36-7.41) VBG pCO2 (38-50) mmHg VBG pO2 mmHg VBG HCO3 mmol/L VBG O2 Saturation % VBG Base Excess mEq/L Sodium (136-145) mmol/L Potassium (3.5-5.1) mmol/L Chloride (98-107) mmol/L Carbon Dioxide (21-32) mmol/L Anion Gap (3-11) BUN (6-23) mg/dl Creatinine (0.6-1.2) mg/dl Est Cr Clr Drug Dosing Est GFR ( Amer) ml/min Est GFR (Non-Af Amer) ml/min BUN/Creatinine Ratio (10-20) Glucose (70-99(Fasting)) mg/dl POC Glucose 286 H 185 H (70-99) mg/dl Estimat Average Glucose mg/dl Hemoglobin A1c (4.5-5.6) % Calcium (8.6-10.3) mg/dl Magnesium (1.7-2.4) mg/dl Total Bilirubin (0.2-1.0) mg/dl AST (13-39) U/L ALT (7-52) U/L Alkaline Phosphatase (34-104) U/L Troponin I High Sens (0-14) pg/ml Total Protein (6.0-8.3) gm/dl Albumin (3.4-5.0) gm/dl Globulin (2.5-4.0) gm/dl Albumin/Globulin Ratio (0.9-2) Urine Color Urine Appearance (Clear) Urine pH (4.5-7.5) Ur Specific [place] (1.000-1.030) Urine Protein (Negative) Urine Glucose (UA) (Negative) Urine Ketones (Negative) Urine Blood (Negative) Urine Nitrite (Negative) Urine Bilirubin (Negative) Urine Urobilinogen (Negative) Ur Leukocyte Esterase (Negative) SARS-CoV-2 (PCR) NEGATIVE (Negative) Influenza Type A (PCR) Negative (Neg) Influenza Type B (PCR) Negative (Neg) RSV (RT-PCR) Negative (Neg) Administered Medications Discontinued Medications Sodium Chloride (Nss) 1,000 mls @ 999 mls/hr IV .[id number] ONE Stop: 08/11/23 18:03 Last Infusion: 08/11/23 18:50 Dose: Infused Documented By: Admin: 08/11/23 17:34 Dose: 999 mls/hr Documented By: TEA Magnesium Sulfate/Dextrose (Magnesium Sulfate / D5w) 1 gm in 100 mls @ 100 mls/hr IV NOW STA Stop: 08/11/23 19:10 Last Infusion: 08/11/23 19:22 Dose: Infused Documented By: Admin: 08/11/23 18:18 Dose: 100 mls/hr Documented By: TEA Insulin Human Regular (Novolin-R Insulin Per Unit Charge) 5 units IV NOW STA Stop: 08/11/23 18:12 Last Admin: 08/11/23 18:18 Dose: 5 units Documented By: TAE Co-signed By: AIME Discharge Plan Visit Data Chief Complaint: Hyperglycemia Stated Complaint: HIGH BLOOD SUGAR ED Provider: Frieda Decker Discharge Problem: Hyperglycemia, Nausea, Hypomagnesemia, Heart palpitations Forms Stand Alone Forms: My [facility] Prescriptions Prescriptions: No Action (DME) pen needle, diabetic [BD Ultra-Fine Flores Pen Needle] 32 gauge x 5/32" needle See Rx Instructions miscellaneous .MEDSUPPLY Qty: 100 3RF Rx Instructions: Inject insulin once daily insulin glargine [Lantus Solostar U-100 Insulin] 100 unit/mL (3 mL) insulin pen 16 unit subcut QAM Qty: 15 3RF metformin 1,000 mg tablet 1,000 mg PO BID Qty: 180 2RF cholecalciferol (vitamin D3) 125 mcg (5,000 unit) capsule 5,000 unit PO DAILY Qty: 30 5RF atorvastatin 20 mg tablet 20 mg PO QPM Qty: 90 2RF Invokana 100 mg tablet 100 mg PO QAM Qty: 30 1RF (DME) FreeStyle Jose Francisco 14 Day Sensor Kit See Rx Instructions .Route Rx Instructions: As directed levothyroxine 112 mcg tablet 112 mcg PO DAILYBB Qty: 90 1RF aspirin [Ecotrin Low Strength] 81 mg Tablet,Delayed Release (Dr/Ec) 81 mg PO QAM Qty: 30 0RF Trintellix 20 mg tablet 20 mg PO QPM mirtazapine 30 mg tablet 30 mg PO HS insulin lispro [Humalog KwikPen Insulin] 100 unit/mL insulin pen 3 unit SUBCUT TIDWMEAL PRN (Reason: DEPENDS ON BSG) Rx Instructions: PLUS SLIDING SCALE PER PT. Rexulti 1 mg tablet 1 mg PO HS Referrals Referrals: Andry Kerr MD [Primary Care Provider] -
[2023-08-11 18:03] LABS: Appearance Urine Clear (Clear); Bilirubin Urine Negative (Negative); Blood Urine Negative (Negative); Color Urine Yellow; Glucose Urine UA 3+ (Negative); Ketones Urine Negative (Negative); Leukocyte Esterase Urine Negative (Negative); Nitrite Urine Negative (Negative); Protein Urine Negative (Negative); Urobilinogen Urine Negative (Negative)
[2023-08-11 18:08] LABS: Alanine Aminotransferase 84 U/L (7-52); Albumin Globulin Ratio 1.3 (0.9-2); Albumin Level 4.4 gm/dl (3.4-5.0); Alkaline Phosphatase 160 U/L (34-104); Anion Gap 12 (3-11); Aspartate Aminotransferase 110 U/L (13-39); BUN Creatinine Ratio 25.7 (10-20); Bilirubin,Total 0.4 mg/dl (0.2-1.0); Blood Urea Nitrogen 18 mg/dl (6-23); Calcium 11.2 mg/dl (8.6-10.3); Carbon Dioxide 25 mmol/L (21-32); Chloride 102 mmol/L (98-107); Est GFR (African American) 103.9 ml/min; Est GFR (Non-African American) 89.7 ml/min; Globulin 3.4 gm/dl (2.5-4.0); Glucose 395 mg/dl (70-99(Fasting)); Magnesium 1.5 mg/dl (1.7-2.4); Potassium 4.2 mmol/L (3.5-5.1); Sodium 139 mmol/L (136-145); Total Protein 7.8 gm/dl (6.0-8.3)
[2023-08-11] MEDS ORDERED: NovoLIN-R INSULIN PER UNIT CHARGE IV STA (18:11)
[2023-08-11] MEDS ORDERED: MAGNESIUM SULFATE / D5W 1 GM/100 ML BAG IV STA (18:11)
[2023-08-11 18:28] LABS: Troponin I High Sensitivity 3.8 pg/ml (0-14)
[2023-08-11 18:32] LABS: Estimated Average Glucose 177 mg/dl; Hemoglobin A1C 7.8 % (4.5-5.6)
[2023-08-11 20:23] LABS: Influenza A virus by PCR Negative (Neg); Influenza B virus by PCR Negative (Neg); RSV by PCR Negative (Neg); SARS CoV2 RNA(COVID-19) Ceph NEGATIVE (Negative)
--- NOTE | 2023-08-11 21:10 | History & Physical Report ---
Date of Service August 11, 2023 Assessment & Plan (1) Hyperglycemia: Plan: Glucose elevated at 395 on arrival Anion gap at 12 No leukocytosis; afebrile COVID, flu, RSV negative VBG WNL Elevated BUN/Cr ratio at 25.7 Glucose corrected to 185mg/dL in the ED BSG check at 11 PM, then ACHS Continue IV fluid resuscitation with LR at 125 mL/hr x 2 Diabetes management consult A.m. CBC, BMP, mag, LFTs (2) Heart palpitations: Plan: Troponin WNL EKG revealed sinus tachycardia at 126 bpm; QTc 440 Likely secondary to hyperglycemia Continuous telemetry monitoring (3) Hypomagnesemia: Plan: Magnesium 1.5 on arrival Magnesium sulfate 1 g IV x3 Recheck a.m. mag (4) T2DM (type 2 diabetes mellitus): Plan: Last A1c at 7.8% on 08/11/2023 Hold metformin, Invokana Patient reports that she takes 16 units Lantus QAM Recommend Lantus 8 u BID while inpatient SSI; with target BSG range 110-140mg/dL, CF 50, carb ratio 15 T2DM diet Adjust regimen as needed Pharmacy glycemic management consult to help manage episodes of hyper and hypoglycemia Diabetic management consult (as above) (5) Elevated transaminase level: Plan: AST 110, ALT 84, alk phos 160 on arrival Possibly due to hemoconcentration Recheck a.m. LFTs (6) Hyperlipidemia: Plan: Continue lovastatin (7) Hypothyroidism: Plan: Continue levothyroxine (8) Depression with anxiety: Plan: Continue Rexulti, Trintellix, mirtazapine (9) Restless legs: Plan: Chronic; stable Plan Disposition: Obs -admit to [facility] [place] telemetry Full code T2DM diet VTE PPx: Lovenox 40 mg SQ q24h History of Present Illness Chief Complaint: Hyperglycemia, chest palpitations Primary Care Provider: Andry Kerr MD Kourtney is a 68-year-old female with PMH of T2DM, GERD, CVD, HLD, depression, vitamin D deficiency, and hypothyroidism. She presented for chest palpitations and hyperglycemia on 08/11. She reports that she was hypoglycemic at BSG 66 before she ate in the morning, and then her glucose went gia high afterwards. Symptoms developed around 1000. Patient reports that she only ate a banana and cereal this morning. She normally takes her morning Lantus 16u prior to eating; then she reportedly took her 6 units of short acting after eating. She has had chest palpitations and heart racing in the past. No at home oxygen use. No recent rashes or tick bites. No sick contacts. She denies alcohol, tobacco, and recreational drug use. She endorses a worsening headache since this morning that has been constant. She rates it 6/10. Headache is located centrally on the forehead, and does not wrap around her head. She took all of her regular morning medications, and reports no recent changes in medications. She notes that she would like to return to [facility] with possible. Patient is mildly tachycardic at 107 bpm at time of admission; vitals otherwise stable. ED course: NSS 1000 mL IV Magnesium sulfate 1 g IV Regular insulin 5 units IV ROS: Patient endorses heart racing, chest palpitations, GIBBS, and hand / foot neuropathy (chronic) Patient denies fever, sweats, chest pain, SOB, abd pain, N/V/D, burning with urination, dysuria, or blood in the urine or stool. Allergies Allergy/AdvReac Type Severity Reaction Status Date / Time cisapride Allergy Intermediate Hives Verified 08/11/23 20:39 doxycycline Allergy Intermediate Rash Verified 08/11/23 20:39 gadobutrol [From Gadavist] Allergy Intermediate Hives Verified 08/11/23 20:39 lansoprazole Allergy Intermediate Hives Verified 08/11/23 20:39 Penicillins Allergy Intermediate Rash Verified 08/11/23 20:39 tetracycline Allergy Intermediate Rash Verified 08/11/23 20:39 Home Medications Medication Instructions Recorded Confirmed Type mirtazapine 30 mg tablet 30 mg PO HS 05/04/18 08/11/23 History aspirin 81 mg tablet,delayed 81 mg PO QAM #30 tabs 03/02/19 08/11/23 Rx release (Ecotrin Low Strength) vortioxetine 20 mg tablet 20 mg PO QPM 06/06/19 08/11/23 History (Trintellix) flash glucose sensor (FreeStyle 06/16/21 05/21/23 History Jose Francisco 14 Day Sensor kit) insulin lispro 100 unit/mL 3 unit subcut TIDWMEAL PRN DEPENDS 04/03/22 08/11/23 History subcutaneous pen (Humalog KwikPen ON BSG (U-100) Insulin) brexpiprazole 1 mg tablet (Rexulti) 1 mg PO HS 04/08/22 08/11/23 History pen needle, diabetic 32 gauge x #100 ea 12/22/22 05/21/23 Rx " (BD Ultra-Fine Flores Pen Needle) insulin glargine 100 unit/mL (3 16 unit (0.16 mL) subcut QAM #15 mL 03/02/23 08/11/23 Rx mL) subcutaneous pen (Lantus Solostar U-100 Insulin) levothyroxine 112 mcg tablet 112 mcg PO DAILYBB #90 tabs 05/22/23 08/11/23 Rx metformin 1,000 mg tablet 1,000 mg PO BID #180 tabs 05/31/23 08/11/23 Rx cholecalciferol (vitamin D3) 125 5,000 unit PO DAILY #30 caps 06/13/23 08/11/23 Rx mcg (5,000 unit) capsule atorvastatin 20 mg tablet 20 mg PO QPM #90 tabs 07/09/23 08/11/23 Rx canagliflozin 100 mg tablet 100 mg PO QAM #30 tabs 07/23/23 08/11/23 Rx (Invokana) Past Med/Surg History Medical History (Updated 08/11/23 @ 22:01 by Marcus Cadet PA-C) Atrial tachycardia Elevated lactic acid level Hypothyroidism Elevated lactic acid level Hyperglycemia Chest pain Hyperglycemia Abdominal pain Lactic acidemia Abdominal pain Diarrhea Hypoglycemia History of anemia Gout Cervical dysplasia Diabetic peripheral neuropathy H/O: stroke Cerebellar infarct Acute CVA (cerebrovascular accident) Postsurgical hypothyroidism Altered mental status Vertigo Hypothyroidism Sensory ataxia Polyneuropathy Major depressive disorder Lumbosacral radiculopathy Hyperlipidemia GERD (gastroesophageal reflux disease) Encounter for routine gynecological examination Diabetic peripheral neuropathy 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 CVA (cerebral vascular accident) Chronic skin ulcer of right ear Depression with anxiety T2DM (type 2 diabetes mellitus) Weakness TIA (transient ischemic attack) Neurological deficit present Hyperglycemia Dizziness Wound, open, ear, external with complication Suicide attempt Major depressive disorder, recurrent episode, severe with anxious distress Lumbar stenosis with neurogenic claudication Lower extremity weakness Intractable low back pain Hypotension Hypokalemia Hypertension HNP (herniated nucleus pulposus), lumbar Fecal impaction Dyslipidemia DKA (diabetic ketoacidoses) Constipation Chest pain Anxiety Altered mental status Acute gastritis Diabetes Surgical History History of total abdominal hysterectomy H/O laparoscopy Status post hysteroscopic ablation of endometrium H/O dilation and curettage History of dental surgery History of colposcopy with cervical biopsy Previous back surgery History of tonsillectomy Status post lumbar spine surgery for decompression of spinal cord H/O cardiac catheterization History of hysterectomy Family History Mother , in her early 70s of some sort of cancer (patient not clear if it was breast cancer) Breast cancer Diabetes Grandmother Breast cancer Grandmother Breast cancer Unknown Colon cancer Father , Diet it age 78 of a myelodysplastic syndrome. He also had Lmzejjh-Nhgfa-Eryfg disease. Myelodysplasia (myelodysplastic syndrome) Tfvcopp-Hwupr-Xhmeg disease Heart disease Brother Uoaumty-Oauij-Kbdgq disease Other No pertinent family history in first degree relatives Social History Smoking Status: Never smoker Hx Alcohol Use: No Hx Substance Use: No Preferred Language: Citizen Of [place] Communication Ability: Effective Communication Ability Comment: some difficulty with memory Potato [employer]er Required: No Beliefs That Will Affect Care: None marital status: significant other Current Living Situation: Significant Other Current Living Situation Comment: lives w/ current occupational status: disabled current occupation: Patient used to work at [employer] for 23 years and then [employer] How many Children do You have: 2 other: Retired on disability from her back 3 years ago Feels Safe at Home: Yes Assistive Devices: Walker Review of Systems Review of Systems: See HPI above Physical Exam Physical Exam: General: Anxious; pleasant affect; lip twitching; restless legs; non-toxic appearing; well-nourished; cooperative HEENT: normocephalic, atraumatic; no scleral icterus; PERRLA w/ EOMs intact; moist mucus membrane; vision and hearing grossly intact Neck: supple; no lymphadenopathy; trachea midline Skin: warm, dry without signs of tenting; no cyanosis; no rashes, bruising, lesions, or erythema noted CV: chest wall NTP; RR, tachycardia at 100 bpm; S1/S2 normal; no murmurs/rubs/gallops; pounding pulses intact and symmetric at radial, DP, and PT Lungs: no acute respiratory distress; symmetrical chest wall expansion; clear breath sounds across all lung bella w/o adventitious sounds; no wheezing ABD: Soft, NTP; BS present; no rebound/guarding; no distention MSK: Tremors; no edema noted in the LEs b/l, nonerythematous Neuro: A&Ox3; normal mood and affect; fluent speech; no focal deficits; decreas ed sensation in the feet and hands B/L Results & Data Results & Data Vital Signs (Past 12 Hours) Vital Signs Temp Pulse Resp BP Pulse Ox O2 Del Method 08/11/23 19:30 107 H 20 136/92 96 08/11/23 19:27 108 H 24 143/90 H 96 08/11/23 17:36 116 H 08/11/23 16:50 36.8 C 130 H 19 154/92 H 95 Room Air Laboratory Results Abnormal lab results 08/11/23 08/11/23 08/11/23 Range/Units 17:28 17:30 17:46 Cloud # (Auto) 0.70 H (0.11-0.59) K/uL Anion Gap 12 H (3-11) BUN/Creatinine Ratio 25.7 H (10-20) Glucose 395 H* (70-99(Fasting)) mg/dl POC Glucose 367 H* (70-99) mg/dl Hemoglobin A1c 7.8 H (4.5-5.6) % Calcium 11.2 H (8.6-10.3) mg/dl Magnesium 1.5 L (1.7-2.4) mg/dl AST 110 H (13-39) U/L ALT 84 H (7-52) U/L Alkaline Phosphatase 160 H (34-104) U/L Ur Specific [place] 1.040 H (1.000-1.030) Urine Glucose (UA) 3+ H (Negative) 08/11/23 08/11/23 Range/Units 18:56 20:22 Cloud # (Auto) (0.11-0.59) K/uL Anion Gap (3-11) BUN/Creatinine Ratio (10-20) Glucose (70-99(Fasting)) mg/dl POC Glucose 286 H 185 H (70-99) mg/dl Hemoglobin A1c (4.5-5.6) % Calcium (8.6-10.3) mg/dl Magnesium (1.7-2.4) mg/dl AST (13-39) U/L ALT (7-52) U/L Alkaline Phosphatase (34-104) U/L Ur Specific [place] (1.000-1.030) Urine Glucose (UA) (Negative) Code Status & VTE Plan Code Status Full code VTE Prophylaxis Plan VTE Prophylaxis will be ordered: Yes Supervising Physician Co-Signing Physician Notes Attending addendum: I have physically seen this patient, have supervised the KIMBERLY's activities, and agree with the H&P unless as otherwise noted. Assessment and Plan: Hyperglycemia and diabetes mellitus- Patient reports that her glucose has been very variable after changing her glucose sensor yesterday Upon arrival to today her glucose was 395 Glucose improved to 180 1:05 liter of normal saline from the ED COVID, flu, RSV testing all negative No obvious signs of infection Sounds like patient needs help with her glucose monitoring device Overnight continue LR at 125 mL/h x 2 Check hemoglobin A1c Heart palpitations- Normal troponin EKG shows sinus tach at 126 Likely contributing factors including hyperglycemia and hypomagnesemia Follow on telemetry overnight Hypomagnesemia- Magnesium 1.5 on arrival Will get a total of 3 g of magnesium IV, and recheck laboratories in a.m. PG Care Time/CCT Total # of Minutes Spent Total Time Spent with Patient: Total time spent is greater than 50% in coordination of care (as documented) at patient's floor/unit and/or counseling patient: Coding [place] [id number] INT INP/OBS CARE 2/55MIN Patient Type Established Medical Decision Making Low Complexity Diagnoses Hyperglycemia R73.9 Heart palpitations R00.2 Hypomagnesemia E83.42 T2DM (type 2 diabetes mellitus) E11.9 Elevated transaminase level R74.01 Hyperlipidemia E78.5 Hypothyroidism E03.9 Depression with anxiety F41.8 Restless legs G25.81
[2023-08-11] MEDS ORDERED: ACETAMINOPHEN 325 MG TAB PO STA (21:37)
[2023-08-11] MEDS ORDERED: DEXTROSE 50% 50 ML SYRINGE IV PRN (22:30)
[2023-08-11] MEDS ORDERED: GLUCOSE 10 TAB/TUBE PO PRN (22:30)
[2023-08-11] MEDS ORDERED: GLUCOSE 40% GEL 15 GM TUBE PO PRN (22:30)
[2023-08-11] MEDS ORDERED: PHARMACY GLYCEMIC MGMT CONSULT PRN (22:30)
[2023-08-11] MEDS ORDERED: ACETAMINOPHEN 325 MG TAB PO PRN (22:30)
[2023-08-11] MEDS ORDERED: CARBOHYDRATES FOR HYPOGLYCEMIA PO PRN (22:30)
[2023-08-11] MEDS ORDERED: GLUCAGON FOR INJ 1 MG VIAL SQ PRN (22:30)
[2023-08-11] MEDS ORDERED: Patient's HEIGHT &/or WEIGHT Needed STA (22:57)
[2023-08-11] MEDS: LACTATED RINGER'S 1,000 ML IV SCH (23:05)
[2023-08-11] MEDS: MAGNESIUM SULFATE / D5W 1 GM/100 ML BAG IV SCH (23:05)
[2023-08-12] MEDS: MIRTAZAPINE TAB 15 MG TAB PO SCH ×2 (00:20→21:27)
[2023-08-12] MEDS: ENOXAPARIN INJ 40 MG/0.4 ML SYR SQ SCH ×2 (00:20→21:27)
[2023-08-12] MEDS: MAGNESIUM SULFATE / D5W 1 GM/100 ML BAG IV SCH (01:48)
[2023-08-12] MEDS: INSULIN ASPART PER UNIT CHARGE SC SCH ×6 (01:48→21:38)
[2023-08-12 04:36] LABS: Basophils # (auto) 0.02 K/uL (0.00-0.20); Basophils % (auto) 0.3 %; Eosinophils # (auto) 0.15 K/uL (0.00-0.50); Eosinophils % (auto) 2.1 %; Hematocrit (blood only) 38.6 % (37.0-47.0); Hemoglobin 12.4 g/dl (12.0-16.0); Immature Granulocytes # (auto) 0.02 K/uL (0.01-0.20); Immature Granulocytes % (auto) 0.3 %; Lymphocytes # (auto) 3.27 K/uL (1.20-3.40); Mean Corpuscular Hemoglobin 29.2 pg (25.0-34.0); Mean Corpuscular Hgb Conc 32.1 g/dL (32.0-36.0); Mean Corpuscular Volume 90.8 fL (80.0-100.0); Monocytes # (auto) 0.51 K/uL (0.11-0.59); Neutrophils # (auto) 3.29 K/uL (1.40-6.50); Neutrophils % (auto) 45.3 %; Platelet Count 215 K/uL (130-400); RDW Coefficient of Variation 13.7 % (11.5-14.5); RDW Standard Deviation 45.4 fL (36.4-46.3); Red Blood Count 4.25 M/uL (4.20-5.40); White Blood Count 7.26 K/ul (4.8-10.8)
[2023-08-12 04:55] LABS: Albumin Level 3.5 gm/dl (3.4-5.0); BUN Creatinine Ratio 24.1 (10-20); Bilirubin Direct 0.2 mg/dl (0-0.2); Bilirubin,Total 0.6 mg/dl (0.2-1.0); Calcium 9.4 mg/dl (8.6-10.3); Creatinine Clr Calc Pharmacy 111.4 ml/min; Est GFR (African American) 113.2 ml/min; Est GFR (Non-African American) 97.6 ml/min; Magnesium 2.3 mg/dl (1.7-2.4); Potassium 3.6 mmol/L (3.5-5.1); Total Protein 6.1 gm/dl (6.0-8.3)
[2023-08-12] MEDS: LEVOTHYROXINE SODIUM 112 MCG TABLET PO SCH (08:57)
[2023-08-12] MEDS: ASPIRIN 81 MG ECTAB PO SCH (08:58)
[2023-08-12] MEDS: LACTATED RINGER'S 1,000 ML IV SCH ×2 (08:58→21:27)
[2023-08-12] MEDS ORDERED: LANTUS PER UNIT CHARGE SQ SCH (09:00)
[2023-08-12] MEDS ORDERED: LANTUS PER UNIT CHARGE SC SCH (12:30)
--- NOTE | 2023-08-12 14:44 | Ultrasound Report ---
US gallbladder CLINICAL HISTORY: elevated LFTs COMPARISON STUDY: Right upper quadrant ultrasound November 18, 2022. CT of the abdomen and pelvis February 25, 2023. FINDINGS: No hepatic lesions are present. There is mild dilatation of the common bile duct, measuring 8 mm. There is an equivocal 3 mm calculus within the common bile duct. Pancreatic body is normal. He ad and tail are obscured by overlying bowel gas. Gallbladder is mildly distended. There is no gallbla dder wall thickening. No sonographic Adrian sign was elicited. Sludge within the gallbladder is noted . Probable small stone within the gallbladder neck. There is no pericholecystic fluid. There is no ri ght hydronephrosis. IMPRESSION: 1. Mild dilatation of the common bile duct. Equivocal small common bile duct calculus. The findings c ould be correlated with obstructive liver function tests. 2. Sludge within the gallbladder and probable small stone within the gallbladder neck. No sonographic evidence for acute cholecystitis. ACT 112: Negative or not required by law. Electronically signed by: Ferdinand Arreola M.D. 08/12/2023 2:41 PM
--- NOTE | 2023-08-12 15:07 | Pharmacy Report ---
Pharmacy Glycemic Short Note 2 - Date of Service August 12, 2023 - Glycemic Short BSG Results (Last 24 hours): 08/11/23 08/11/23 08/11/23 17:28 17:30 18:56 Glucose 395 H* POC Glucose 367 H* 286 H 08/11/23 08/12/23 08/12/23 20:22 01:07 04:04 Glucose 110 H POC Glucose 185 H 105 H 08/12/23 08/12/23 08/12/23 08:56 10:51 13:38 Glucose POC Glucose 106 H 247 H 150 H OUTPATIENT ANTIDIABETIC REGIMEN: * Invokana 100 mg PO daily * Lantus 16 units SC QAM * Humalog 3 units TIDM and sliding scale * Metformin 1 gm PO BID HbA1c = 7.8% ASSESSMENT: * 68 y/o F admitted for hyperglycemia last night. She has history of Type 2 diabetes managed on basal and bolus insulin as well as oral meds. * BSG above 300 mg/dl on admission. This trended down to below 150 mg/dl after 5 units of IV insulin. * Fasting BSG today was 106 mg/dl. Basal dose 8 units ordered this AM was given late close to lunch. * Pre-lunch BSG trended up to 247 mg/dl. An additional 5 units of basal insulin was ordered at lunch. Ongoing basal 12 units QAM ordered for tomorrow. * Nurse held basal and bolus insulins at lunch time per Dr. Rehman. * Lantus and Novolog parameters based on stress of 2. PLAN FOR INPATIENT GLYCEMIC CONTROL: * Hold outpatient oral diabetes medications * Basal insulin * Lantus 12 units SQ QAM * Bolus insulin * NovoLog per scale ACHS or Q6hrs while NPO * Goal Range: Low 110 mg/dL - High 140 mg/dL * Correction Factor: 30 mg/dL/unit * Nutritional / Prandial insulin per carb ratio of 1 unit per 10 grams CHO consumed
--- NOTE | 2023-08-12 15:27 | Hospitalist Progress Note ---
Date of Service August 12, 2023 Assessment & Plan (1) Acute calculous cholecystitis: Plan: This is the third episode in the last 8 months where she has presented with hyperglycemia and had elevated AST. With heart palpitations from sinus tachycardia, suspect early acute cholecystitis given elevated LFTs, RUQ abd pain RUQ US with distended GB, GB sludge, stone in neck of GB and possible CBD stone She is severely claustrophobic and cannot proceed with MRCP Consult GI to see about need for ERCP for CBD stone May need Surgery consult Sunday to discuss elective cholecystectomy Keep on clears for now, NPO after midnight in case of GI procedure Continue IVFs Start Cipro and Flagyl (2) Hyperglycemia: Plan: Glucose elevated at 395 on arrival, now better controlled Hyperglycemia likely 2/2 acute cholecystitis (3) Heart palpitations: Plan: From sinus tachycardia from likely early acute cholecystitis Troponin WNL EKG revealed sinus tachycardia at 126 bpm Continuous telemetry monitoring (4) Hypomagnesemia: Plan: Magnesium 1.5 on arrival Magnesium sulfate 1 g IV x3 now normal follow level (5) T2DM (type 2 diabetes mellitus): Plan: Last A1c at 7.8% on 08/11/2023 Hold metformin, Invokana Patient reports that she takes 16 units Lantus QAM Recommend Lantus 8 u BID while inpatient SSI; with target BSG range 110-140mg/dL, CF 50, carb ratio 15 T2DM diet Adjust regimen as needed Pharmacy glycemic management consult to help manage episodes of hyper and hypoglycemia Diabetic management consult (as above) (6) Elevated transaminase level: Plan: AST 110, ALT 84, alk phos 160 on arrival and now up further to the 200s and 100s, elevated alk phos, normal TBili, CK normal with likely symptomatic cholelithiasis, early acute cholecystitis, and suspected choledocholithiasis Follow LFTs HOLD statin (7) Hyperlipidemia: Plan: hold statin for elevated LFTs (8) Hypothyroidism: Plan: Continue levothyroxine TSH here normal (9) Depression with anxiety: Plan: Continue Rexulti, Trintellix, mirtazapine Rexulti and Trintellix must be brought in from home (10) Restless legs: Plan: severe check Fe studies (11) Diabetic peripheral neuropathy: Plan: severe polyneuropathy Also with tremor at rest in hands/arms--> check B12, folate Could be side effect of medication Plan VTE PPx:hold Lovenox 40 mg SQ q24h in case of GI procedure Dispo-continued stay med tele Admission and Anticipated Discharge Date Admission Date: August 11, 2023 Subjective Pt reports feeling a little better than on admission. She was having 7/10 RUQ abdominal pain yesterday along with the headache, high blood glucose, and palp itations from sinus tachycardia. Today, not much RUQ pain but mild. No nausea. Pt concerned about whether she will be able to go to [facility] from here for care home stay as she has been on the waiting list x 2 years. Tele with sinus tach, NSR Physical Exam Constitutional: WD/WN, vitals as above Neck: trachea midline, no thyromegaly Respiratory: normal respiratory effort, lungs clear to auscultation Cardiovascular: RRR, no murmur, no edema Chest (Breasts): Chest: normal inspection of chest Gastrointestinal (Abdomen): Inspection/Auscultation: normal bowel sounds; abdomen not distended Percussion/Palpation: + abdomen tender (in RUQ w/o guarding or rebound) and abdomen soft Musculoskeletal: Extremities: extremities normal to inspection; no cyanosis and no clubbing Skin: no rashes, warm and dry Neurologic: choreiform movements of lower extremities bilat, resting tremor in both hands/fingers Psychiatric: A+Ox3, euthymic affect Lymphatic: no lymphedema Results & Data Results & Data Vital Signs (Past 12 Hours) Vital Signs Temp Pulse Pulse Pulse Resp BP BP 08/12/23 11:29 36.4 C L 79 18 144/87 H 08/12/23 11:20 08/12/23 11:18 91 H 08/12/23 10:33 36.6 C 100 H 20 166/92 H 08/12/23 07:34 75 20 167/98 H 08/12/23 07:33 76 08/12/23 05:30 71 16 141/88 H 08/12/23 05:00 70 16 157/94 H 08/12/23 04:30 70 18 151/96 H 08/12/23 04:00 75 20 132/84 Pulse Ox O2 Del Method 08/12/23 11:29 94 Room Air 08/12/23 11:20 Room Air 08/12/23 11:18 08/12/23 10:33 96 Room Air 08/12/23 07:34 97 Room Air 08/12/23 07:33 08/12/23 05:30 98 08/12/23 05:00 97 08/12/23 04:30 97 08/12/23 04:00 94 Laboratory Results CBC, CMP, troponin, TSH, magnesium all reviewed Diagnostic Findings Gallbladder Ultrasound 08/12/23 09:29 US gallbladder CLINICAL HISTORY: elevated LFTs COMPARISON STUDY: Right upper quadrant ultrasound November 18, 2022. CT of the abdomen and pelvis February 25, 2023. FINDINGS: No hepatic lesions are present. There is mild dilatation of the common bile duct, measuring 8 mm. There is an equivocal 3 mm calculus within the common bile duct. Pancreatic body is normal. Head and tail are obscured by overlying bowel gas. Gallbladder is mildly distended. There is no gallbladder wall thickening. No sonographic Adrian sign was elicited. Sludge within the gallbladder is noted. Probable small stone within the gallbladder neck. There is no pericholecystic fluid. There is no right hydronephrosis. IMPRESSION: 1. Mild dilatation of the common bile duct. Equivocal small common bile duct calculus. The findings could be correlated with obstructive liver function tests. 2. Sludge within the gallbladder and probable small stone within the gallbladder neck. No sonographic evidence for acute cholecystitis. ACT 112: Negative or not required by law. Electronically signed by: Ferdinand Arreola M.D. 08/12/2023 2:41 PM PG Care Time/CCT Total # of Minutes Spent Total Time Spent with Patient: Total time spent is greater than 50% in coordination of care (as documented) at patient's floor/unit and/or counseling patient: Coding Level of Care Code 02611 SUB INP/OBS CARE 3/50MIN Diagnoses Acute calculous cholecystitis K80.00 Hyperglycemia R73.9 Heart palpitations R00.2 Hypomagnesemia E83.42 T2DM (type 2 diabetes mellitus) E11.9 Elevated transaminase level R74.01 Hyperlipidemia E78.5 Hypothyroidism E03.9 Depression with anxiety F41.8 Restless legs G25.81 Diabetic peripheral neuropathy E11.42
[2023-08-12] MEDS: CIPROFLOXACIN / D5W 400 MG/200 ML BAG IV SCH (16:30)
[2023-08-12] MEDS: metroNIDAZOLE 500 MG/100 ML BAG IV SCH ×2 (16:30→23:33)
[2023-08-12] MEDS ORDERED: ATORVASTATIN 20 MG TAB PO SCH (21:00)
--- NOTE | 2023-08-13 00:12 | Electrocardiogram Report ---
Test Reason : Blood Pressure : / mmHG Vent. Rate : 126 BPM Atrial Rate : 126 BPM P-R Int : 158 ms QRS Dur : 070 ms QT Int : 304 ms P-R-T Axes : 032 021 235 degrees QTc Int : 440 ms Poor data quality, interpretation may be adversely affected Sinus tachycardia Cannot rule out Anterior infarct (cited on or before 11-AUG-2023) Nonspecific ST and T wave abnormality Abnormal ECG When compared with ECG of 07-JUL-2023 21:35, No significant change Confirmed by Maxwell Carrasco ([id number]) on 08/13/2023 12:12:00 AM Referred By: REFERRED SELF Confirmed By:Maxwell Carrasco
--- NOTE | 2023-08-13 00:25 | Electrocardiogram Report ---
Test Reason : Blood Pressure : / mmHG Vent. Rate : 090 BPM Atrial Rate : 090 BPM P-R Int : 158 ms QRS Dur : 074 ms QT Int : 356 ms P-R-T Axes : 050 006 028 degrees QTc Int : 435 ms Poor data quality, interpretation may be adversely affected Normal sinus rhythm Cannot rule out Inferior infarct , age undetermined Abnormal ECG When compared with ECG of 11-AUG-2023 17:24, Nonspecific T wave abnormality, improved in Lateral leads Confirmed by Maxwell Carrasco ([id number]) on 08/13/2023 12:24:48 AM Referred By: REFERRED SELF Confirmed By:Maxwell Carrasco
[2023-08-13] MEDS: CIPROFLOXACIN / D5W 400 MG/200 ML BAG IV SCH ×2 (02:52→15:25)
[2023-08-13] MEDS ORDERED: Nursing to Pharmacy Communication SCH (05:45)
[2023-08-13] MEDS: LEVOTHYROXINE SODIUM 112 MCG TABLET PO SCH (05:49)
[2023-08-13] MEDS: INSULIN ASPART PER UNIT CHARGE SC SCH ×5 (05:53→20:44)
[2023-08-13 06:21] LABS: Basophils # (auto) 0.03 K/uL (0.00-0.20); Basophils % (auto) 0.4 %; Hematocrit (blood only) 38.3 % (37.0-47.0); Hemoglobin 12.8 g/dl (12.0-16.0); Immature Granulocytes # (auto) 0.02 K/uL (0.01-0.20); Immature Granulocytes % (auto) 0.3 %; Lymphocytes # (auto) 2.94 K/uL (1.20-3.40); Lymphocytes % (auto) 43.9 %; Mean Corpuscular Hemoglobin 29.2 pg (25.0-34.0); Mean Corpuscular Hgb Conc 33.4 g/dL (32.0-36.0); Mean Corpuscular Volume 87.4 fL (80.0-100.0); Mean Platelet Volume 10.2 fL (9.4-12.4); Monocytes # (auto) 0.54 K/uL (0.11-0.59); Monocytes % (auto) 8.1 %; Neutrophils # (auto) 2.97 K/uL (1.40-6.50); Neutrophils % (auto) 44.3 %; Platelet Count 228 K/uL (130-400); RDW Coefficient of Variation 13.5 % (11.5-14.5); RDW Standard Deviation 43.4 fL (36.4-46.3); Red Blood Count 4.38 M/uL (4.20-5.40)
[2023-08-13 06:41] LABS: Albumin Level 3.5 gm/dl (3.4-5.0); Bilirubin Direct 0.1 mg/dl (0-0.2); Bilirubin,Total 0.6 mg/dl (0.2-1.0); Calcium 9.4 mg/dl (8.6-10.3); Creatinine Clr Calc Pharmacy 92.2 ml/min; Est GFR (African American) 111.2 ml/min; Est GFR (Non-African American) 95.9 ml/min; Magnesium 1.6 mg/dl (1.7-2.4); Potassium 3.8 mmol/L (3.5-5.1); Total Protein 6.3 gm/dl (6.0-8.3)
[2023-08-13] MEDS: metroNIDAZOLE 500 MG/100 ML BAG IV SCH ×3 (06:57→23:12)
[2023-08-13 07:01] LABS: Ferritin 24.6 ng/ml (8-388)
[2023-08-13] MEDS: ASPIRIN 81 MG ECTAB PO SCH (08:35)
[2023-08-13] MEDS ORDERED: LANTUS PER UNIT CHARGE SQ SCH (09:00)
[2023-08-13] MEDS ORDERED: LANTUS PER UNIT CHARGE SC SCH ×2 (09:00→17:30)
--- NOTE | 2023-08-13 09:49 | Surgery Consultation ---
Date of Consultation August 13, 2023 Assessment & Plan (1) Choledocholithiasis: This is a 68yF with a PMH of DM, depression, depression/anxiety, h/o CVA who presents to the [facility] ED on 08/11/23 with what she explains as issues with her blood sugars(both highs and lows) in addition to heart palpitations. Workup re vealed elevated LFTs which prompted imaging including a RUQ US which showed dilatation of the common bile duct, equivocal small common bile duct calculus, sludge within the gallbladder and probable small stone within the gallbladder neck, and no sonographic evidence for acute cholecystitis. The patient reports episodes of intermittent abdominal pain starting last year, but noting this is not what prompted her to come into the ER. She denies any nausea/vomiting, fevers/chills, CP/SOB. PSH on abdomen includes a hysterectomy. Says she was here last year and was going to have her gallbladder out but never did. Based on review of gallbladder imaging a year ago there was no pathology noted. Today labs reveal WBC 6.7, Hbg 12.8, Tb: 0.6 (0.6), AST 100(247), ALT 110 (132), Alkp 119 (120). Vital signs are stable. On exam patient's abdomen is soft, non distended, with some mild discomfort to palpation in the RUQ. GI has reviewed patient's case and prefer she undergo an MRCP for further evaluation if patient is able to tolerate this with her history of claustrophobia. She is tentatively on the schedule for an EUS/ERCP tomorrow AM. There is currently no evidence of cholecystitis. We will follow up on results of patient's MRCP in addition discuss with GI their plans. Pending imaging results and our availability we could consider tandem ERCP/kayla tomorrow vs perform later this admission vs o utpt. We will follow, keep NPO for midnight. (2) Elevated transaminase level: Supervising Physician Co-Signing Physician Notes Patient seen and examined, labs and imaging reviewed, agree with above. 68-year-old female found to have cholelithiasis and choledocholithiasis. She is currently in minimal pain. On exam she is afebrile stable vitals. Abdomen soft, nontender, nondistended. Labs reviewed. Imaging reviewed, including MRCP which shows debris in common bile duct along with cholelithiasis with no evidence of cholecystitis. She is scheduled for ERCP tomorrow. Potentially plan for robotic versus laparoscopic cholecystectomy, they are under the same anesthesia or in the near future. risks discussed to include but not limited to bleeding, infection, retained stone, bile leak, open surgery, damage to surrounding structures including bile duct, need for future or more extensive surgery, failure to treat symptoms, and risks of anesthesia. History of Present Illness Attending Physician: Eben Sen MD History of Present Illness This is a 68yF with a PMH of DM, depression, depression/anxiety, h/o CVA who presents to the [facility] ED on 08/11/23 with what she explains as issues with her blood sugars(both highs and lows) in addition to heart palpitations. Workup revealed elevated LFTs which prompted imaging including a RUQ US which showed dilatation of the common bile duct, equivocal small common bile duct calculus, sludge within the gallbladder and probable small stone within the gallbladder neck, and no sonographic evidence for acute cholecystitis. The patient reports episodes of intermittent abdominal pain starting last year, but noting this is not what prompted her to come into the ER. She denies any nausea/vomiting, fevers/chills, CP/SOB. PSH on abdomen includes a hysterectomy. Says she was here last year and was going to have her gallbladder out but never did. Allergies Allergy/AdvReac Type Severity Reaction Status Date / Time cisapride Allergy Intermediate Hives Verified 08/11/23 20:39 doxycycline Allergy Intermediate Rash Verified 08/11/23 20:39 gadobutrol [From Gadavist] Allergy Intermediate Hives Verified 08/11/23 20:39 lansoprazole Allergy Intermediate Hives Verified 08/11/23 20:39 Penicillins Allergy Intermediate Rash Verified 08/11/23 20:39 tetracycline Allergy Intermediate Rash Verified 08/11/23 20:39 Home Medications Medication Instructions Recorded Confirmed Type mirtazapine 30 mg tablet 30 mg PO HS 05/04/18 08/11/23 History aspirin 81 mg tablet,delayed 81 mg PO QAM #30 tabs 03/02/19 08/11/23 Rx release (Ecotrin Low Strength) vortioxetine 20 mg tablet 20 mg PO QPM 06/06/19 08/11/23 History (Trintellix) flash glucose sensor (FreeStyle 06/16/21 05/21/23 History Jose Francisco 14 Day Sensor kit) insulin lispro 100 unit/mL 3 unit subcut TIDWMEAL PRN DEPENDS 04/03/22 08/11/23 History subcutaneous pen (Humalog KwikPen ON BSG (U-100) Insulin) brexpiprazole 1 mg tablet (Rexulti) 1 mg PO HS 04/08/22 08/11/23 History pen needle, diabetic 32 gauge x #100 ea 12/22/22 05/21/23 Rx " (BD Ultra-Fine Flores Pen Needle) insulin glargine 100 unit/mL (3 16 unit (0.16 mL) subcut QAM #15 mL 03/02/23 08/11/23 Rx mL) subcutaneous pen (Lantus Solostar U-100 Insulin) levothyroxine 112 mcg tablet 112 mcg PO DAILYBB #90 tabs 05/22/23 08/11/23 Rx metformin 1,000 mg tablet 1,000 mg PO BID #180 tabs 05/31/23 08/11/23 Rx cholecalciferol (vitamin D3) 125 5,000 unit PO DAILY #30 caps 06/13/23 08/11/23 Rx mcg (5,000 unit) capsule atorvastatin 20 mg tablet 20 mg PO QPM #90 tabs 07/09/23 08/11/23 Rx canagliflozin 100 mg tablet 100 mg PO QAM #30 tabs 07/23/23 08/11/23 Rx (Invokana) Patient History Medical History Atrial tachycardia Elevated lactic acid level Hypothyroidism Elevated lactic acid level Hyperglycemia Chest pain Hyperglycemia Abdominal pain Lactic acidemia Abdominal pain Diarrhea Hypoglycemia History of anemia Gout Cervical dysplasia Diabetic peripheral neuropathy H/O: stroke Cerebellar infarct Acute CVA (cerebrovascular accident) Postsurgical hypothyroidism Altered mental status Vertigo Hypothyroidism Sensory ataxia Polyneuropathy Major depressive disorder Lumbosacral radiculopathy Hyperlipidemia GERD (gastroesophageal reflux disease) Encounter for routine gynecological examination Diabetic peripheral neuropathy 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 CVA (cerebral vascular accident) Chronic skin ulcer of right ear Depression with anxiety T2DM (type 2 diabetes mellitus) Weakness TIA (transient ischemic attack) Neurological deficit present Hyperglycemia Dizziness Wound, open, ear, external with complication Suicide attempt Major depressive disorder, recurrent episode, severe with anxious distress Lumbar stenosis with neurogenic claudication Lower extremity weakness Intractable low back pain Hypotension Hypokalemia Hypertension HNP (herniated nucleus pulposus), lumbar Fecal impaction Dyslipidemia DKA (diabetic ketoacidoses) Constipation Chest pain Anxiety Altered mental status Acute gastritis Diabetes Surgical History History of total abdominal hysterectomy H/O laparoscopy Status post hysteroscopic ablation of endometrium H/O dilation and curettage History of dental surgery History of colposcopy with cervical biopsy Previous back surgery History of tonsillectomy Status post lumbar spine surgery for decompression of spinal cord H/O cardiac catheterization History of hysterectomy Family History Mother , in her early 70s of some sort of cancer (patient not clear if it was breast cancer) Breast cancer Diabetes Grandmother Breast cancer Grandmother Breast cancer Unknown Colon cancer Father , Diet it age 78 of a myelodysplastic syndrome. He also had Rynvopf-Fvqwv-Zkxme disease. 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 Beliefs That Will Affect Care: None marital status: significant other Current Living Situation: Significant Other Current Living Situation Comment: lives w/ current occupational status: disabled current occupation: Patient used to work at [employer] for 23 years and then [employer] How many Children do You have: 2 other: Retired on disability from her back 3 years ago Feels Safe at Home: Yes Assistive Devices: Cane and Walker Review of Systems Constitutional: no fever and no chills Respiratory: no dyspnea Cardiovascular: Additional Comments: heart palpitations Gastrointestinal: no abdominal pain, no nausea, no vomiting and no change in bowel habits Physical Exam Physical Exam: awake/alert, no distress Respiratory: normal respiratory effort Gastrointestinal (Abdomen): Inspection/Auscultation: abdomen not distended Percussion/Palpation: + abdomen tender (mild discomfort to palpation in the RUQ) and abdomen soft Results & Data Vital Signs (Past 12 Hours) Vital Signs Temp Pulse Pulse Resp BP Pulse Ox O2 Del Method 08/13/23 07:42 36.4 C L 80 16 162/95 H 95 Room Air 08/13/23 07:20 86 08/13/23 04:00 36.5 C 75 18 153/88 H 95 Room Air 08/12/23 23:00 36.6 C 79 18 154/99 H 96 Room Air Diagnostic Findings US gallbladder CLINICAL HISTORY: elevated LFTs COMPARISON STUDY: Right upper quadrant ultrasound November 18, 2022. CT of the abdomen and pelvis February 25, 2023. FINDINGS: No hepatic lesions are present. There is mild dilatation of the common bile duct, measuring 8 mm. There is an equivocal 3 mm calculus within the common bile duct. Pancreatic body is normal. Head and tail are obscured by overlying bowel gas. Gallbladder is mildly distended. There is no gallbladder wall thickening. No sonographic Adrian sign was elicited. Sludge within the gallbladder is noted. Probable small stone within the gallbladder neck. There is no pericholecystic fluid. There is no right hydronephrosis. IMPRESSION: 1. Mild dilatation of the common bile duct. Equivocal small common bile duct calculus. The findings could be correlated with obstructive liver function tests. 2. Sludge within the gallbladder and probable small stone within the gallbladder neck. No sonographic evidence for acute cholecystitis. ACT 112: Negative or not required by law. Electronically signed by: Ferdinand Arreola M.D. 08/12/2023 2:41 PM PG Care Time/CCT Total # of Minutes Spent Total Time Spent with Patient: Total time spent is greater than 50% in coordination of care (as documented) at patient's floor/unit and/or counseling patient: Coding Level of Care Code 00662 INT INP/OBS CARE MIN Diagnoses Choledocholithiasis K80.50 Elevated transaminase level R74.01
[2023-08-13 09:55] LABS: Thyroid Stimulating Hormone 0.554 uIu/ml (0.300-4.500)
[2023-08-13 09:57] LABS: T4 Free Thyroxine 1.27 ng/dl (0.61-1.60)
--- NOTE | 2023-08-13 09:57 | Gastrointestinal Consultation ---
Date of Consultation August 13, 2023 Assessment & Plan (1) Elevated transaminase level: (2) Choledocholithiasis: Pt is a 68 yo female admitted w hyperglycemia and palpitations; noted to have elevated LFTs w US abd evidence of dilated CBD w equivocal stone, gallbladder sludge and small stone on neck area. - Cipro/Flagyl IV - Trend LFTs - MRCP today - CL diet, NPO after midnight - Plan for EUS/ERCP tomorrow 08/14/2023 - Surgery consult to consider cholecystectomy Supervising Physician Co-Signing Physician Notes I saw and evaluated the patient, we are consulted for evalaution of elevated liver test and possible choledocholithiasis (patient is normal seen by [facility]). Recomendations NPO at [facility] Contineu abx coverage MRCP ordered (may not be possible due to patient anxiety) ERCP arrranged for Sunday (first available due to limiations of time with the [facility] OR and GI nursing services). Please call with questions. History of Present Illness Reason for Consultation: ? Choledocholithiasis, Elevated LFTs Requesting Physician: Dr. Eben Sen Attending Physician: Dr. Savannah Zhou History of Present Illness Pt is a 68 yo female w PMHx of DMII, GERD, CVD, HLD, depression, Vit D deficiency, hypothyroidism who presented w c/o hyperglycemia and palpitations. Upon workup she was found to have elevated LFTs wo leukocytosis: Tbili 0.6, AST 100, ALT 110, Alk phose 119. Gallbladder US showed mild CBD dilation of 8mm w equivocal CBD calculus. She has sludge in gallbladder and stone in gallbladder neck wo acute cholecystitis. She denies any abd pain, n/v, or bowel habit changes otherwise. Allergies Allergy/AdvReac Type Severity Reaction Status Date / Time cisapride Allergy Intermediate Hives Verified 08/11/23 20:39 doxycycline Allergy Intermediate Rash Verified 08/11/23 20:39 gadobutrol [From Gadavist] Allergy Intermediate Hives Verified 08/11/23 20:39 lansoprazole Allergy Intermediate Hives Verified 08/11/23 20:39 Penicillins Allergy Intermediate Rash Verified 08/11/23 20:39 tetracycline Allergy Intermediate Rash Verified 08/11/23 20:39 Home Medications Medication Instructions Recorded Confirmed Type mirtazapine 30 mg tablet 30 mg PO HS 05/04/18 08/11/23 History aspirin 81 mg tablet,delayed 81 mg PO QAM #30 tabs 03/02/19 08/11/23 Rx release (Ecotrin Low Strength) vortioxetine 20 mg tablet 20 mg PO QPM 06/06/19 08/11/23 History (Trintellix) flash glucose sensor (FreeStyle 06/16/21 05/21/23 History Jose Francisco 14 Day Sensor kit) insulin lispro 100 unit/mL 3 unit subcut TIDWMEAL PRN DEPENDS 04/03/22 08/11/23 History subcutaneous pen (Humalog KwikPen ON BSG (U-100) Insulin) brexpiprazole 1 mg tablet (Rexulti) 1 mg PO HS 04/08/22 08/11/23 History pen needle, diabetic 32 gauge x #100 ea 12/22/22 05/21/23 Rx 5/32" (BD Ultra-Fine Flores Pen Needle) insulin glargine 100 unit/mL (3 16 unit (0.16 mL) subcut QAM #15 mL 03/02/23 08/11/23 Rx mL) subcutaneous pen (Lantus Solostar U-100 Insulin) levothyroxine 112 mcg tablet 112 mcg PO DAILYBB #90 tabs 05/22/23 08/11/23 Rx metformin 1,000 mg tablet 1,000 mg PO BID #180 tabs 05/31/23 08/11/23 Rx cholecalciferol (vitamin D3) 125 5,000 unit PO DAILY #30 caps 06/13/23 08/11/23 Rx mcg (5,000 unit) capsule atorvastatin 20 mg tablet 20 mg PO QPM #90 tabs 07/09/23 08/11/23 Rx canagliflozin 100 mg tablet 100 mg PO QAM #30 tabs 07/23/23 08/11/23 Rx (Invokana) Patient History Medical History Atrial tachycardia Elevated lactic acid level Hypothyroidism Elevated lactic acid level Hyperglycemia Chest pain Hyperglycemia Abdominal pain Lactic acidemia Abdominal pain Diarrhea Hypoglycemia History of anemia Gout Cervical dysplasia Diabetic peripheral neuropathy H/O: stroke Cerebellar infarct Acute CVA (cerebrovascular accident) Postsurgical hypothyroidism Altered mental status Vertigo Hypothyroidism Sensory ataxia Polyneuropathy Major depressive disorder Lumbosacral radiculopathy Hyperlipidemia GERD (gastroesophageal reflux disease) Encounter for routine gynecological examination Diabetic peripheral neuropathy 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 CVA (cerebral vascular accident) Chronic skin ulcer of right ear Depression with anxiety T2DM (type 2 diabetes mellitus) Weakness TIA (transient ischemic attack) Neurological deficit present Hyperglycemia Dizziness Wound, open, ear, external with complication Suicide attempt Major depressive disorder, recurrent episode, severe with anxious distress Lumbar stenosis with neurogenic claudication Lower extremity weakness Intractable low back pain Hypotension Hypokalemia Hypertension HNP (herniated nucleus pulposus), lumbar Fecal impaction Dyslipidemia DKA (diabetic ketoacidoses) Constipation Chest pain Anxiety Altered mental status Acute gastritis Diabetes Surgical History History of total abdominal hysterectomy H/O laparoscopy Status post hysteroscopic ablation of endometrium H/O dilation and curettage History of dental surgery History of colposcopy with cervical biopsy Previous back surgery History of tonsillectomy Status post lumbar spine surgery for decompression of spinal cord H/O cardiac catheterization History of hysterectomy Family History Mother , in her early 70s of some sort of cancer (patient not clear if it was breast cancer) Breast cancer Diabetes Grandmother Breast cancer Grandmother Breast cancer Unknown Colon cancer Father , Diet it age 78 of a myelodysplastic syndrome. He also had Kfsfods-Rcbkt-Rzazc disease. 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 Beliefs That Will Affect Care: None marital status: significant other Current Living Situation: Significant Other Current Living Situation Comment: lives w/ current occupational status: disabled current occupation: Patient used to work at [employer] for 23 years and then [employer] How many Children do You have: 2 other: Retired on disability from her back 3 years ago Feels Safe at Home: Yes Assistive Devices: Cane, Glasses and Walker Review of Systems Review of Systems: All systems reviewed & are unremarkable except as noted in HPI & below Physical Exam Constitutional: WD/WN, vitals as above well groomed, cooperative and comfortable Eyes: PERRL, conjunctivae normal, anicteric sclerae ENMT: external ear and nose normal, oropharynx normal Respiratory: normal respiratory effort, lungs clear to auscultation Cardiovascular: RRR, no murmur, no edema Gastrointestinal (Abdomen): normal bowel sounds, soft, nontender, no hepatosplenomegaly Skin: no rashes, warm and dry no jaundice Psychiatric: A+Ox3, euthymic affect Lymphatic: no lymphedema Results & Data Vital Signs (Past 12 Hours) Vital Signs Temp Pulse Pulse Resp BP Pulse Ox O2 Del Method 08/13/23 07:42 36.4 C L 80 16 162/95 H 95 Room Air 08/13/23 07:20 86 08/13/23 04:00 36.5 C 75 18 153/88 H 95 Room Air 08/12/23 23:00 36.6 C 79 18 154/99 H 96 Room Air
[2023-08-13] MEDS: LACTATED RINGER'S 1,000 ML IV SCH ×2 (10:08→23:17)
[2023-08-13] MEDS ORDERED: LORazepam 0.5 MG in SYRINGE 0.25 ML IV STA (10:26)
--- NOTE | 2023-08-13 13:05 | Pharmacy Report ---
Pharmacy Glycemic Short Note 2 - Date of Service August 13, 2023 - Glycemic Short BSG Results (Last 24 hours): 08/12/23 08/12/23 08/12/23 13:38 17:19 20:22 Glucose POC Glucose 150 H 125 H 123 H 08/13/23 08/13/23 08/13/23 05:21 05:52 12:07 Glucose 125 H POC Glucose 121 H 125 H OUTPATIENT ANTIDIABETIC REGIMEN: * Invokana 100 mg PO daily * Lantus 16 units SC QAM * Humalog 3 units TIDM and sliding scale * Metformin 1 gm PO BID HbA1c = 7.8% (08/11/23) ASSESSMENT: 08/13/23: * Patient originally NPO after midnight, diet ordered at breakfast * Will be NPO after midnight tonight for planned ERCP + upper endoscopy on 08/14/23 * Patient received 10 units of insulin yesterday (8 units of which were basal) * Will order a conservative basal dose this evening, as patient will be NPO and had reasonable fasting BSG this morning 08/12/23: * 68 y/o F admitted for hyperglycemia last night. She has history of Type 2 diabetes managed on basal and bolus insulin as well as oral meds. * BSG above 300 mg/dl on admission. This trended down to below 150 mg/dl after 5 units of IV insulin. * Fasting BSG today was 106 mg/dl. Basal dose 8 units ordered this AM was given late close to lunch. * Pre-lunch BSG trended up to 247 mg/dl. An additional 5 units of basal insulin was ordered at lunch. Ongoing basal 12 units QAM ordered for tomorrow. * Nurse held basal and bolus insulins at lunch time per Dr. Remhan. * Lantus and Novolog parameters based on stress of 2. PLAN FOR INPATIENT GLYCEMIC CONTROL: * Hold outpatient oral diabetes medications * Basal insulin * Lantus 0-8 units SQ x 1 this evening * Reassess on 08/14 * Bolus insulin * NovoLog per scale ACHS or Q6hrs while NPO * Goal Range: Low 110 mg/dL - High 140 mg/dL * Correction Factor: 30 mg/dL/unit * Nutritional / Prandial insulin per carb ratio of 1 unit per 10 grams CHO consumed
--- NOTE | 2023-08-13 13:23 | Magnetic Resonance Report ---
MRCP CLINICAL HISTORY: Nausea. Mid abdominal pain. COMPARISON STUDY: Abdominal CT dated 02/25/2023. Abdominal ultrasound dated 08/12/2023. TECHNIQUE: Abdominal MRCP was performed utilizing various T2-weighted sequences in the axial and mundo nal planes. IV contrast was not administered for this examination. 3-D reformats are created and asse ssed. Diffusion weighted imaging was utilized. FINDINGS: The gallbladder is distended and contains layering stones/sludge. Question mild gallbladder wall thic kening. No pericholecystic fluid is identified. Layering stones/debris is suggested in the common daya e duct, best seen on axial reformatted image #200 of 320. There is mild intrahepatic biliary ductal d ilatation. The common bile duct is mildly dilated, measuring up to 8 mm in diameter. Pancreas divisum is incidentally noted. The unenhanced liver, spleen, and adrenal glands are grossly normal. The kidneys are normal in size a nd without hydronephrosis. A 17 mm cyst is noted in the left kidney. There are numerous (at least 10) subcentimeter simple cystic foci scattered throughout the pancreas along the course of the pancreati c duct. These measure up to 7 mm and are typical for sidebranch IPMNs. There is no abdominal ascites. No pleural effusion is seen. The abdominal aorta is normal in course and caliber. No bowel obstructi on is identified. IMPRESSION: 1. Distended gallbladder containing layering stones and sludge. Question mild gallbladder wall thicke fahad. There is no definitive MRI evidence of acute cholecystitis. Correlate clinically. 2. There is mild intra and extrahepatic biliary ductal dilatation. There is layering stones/sludge se en within the common bile duct. 3. Pancreas divisum. 4. Additional findings as above. Dictated: 08/13/2023 12:56 PM Transcribed: 08/13/2023 1:07 PM Sana [id number] SHIRLEY_Anshul [id number] Electronically signed by: Bright Cruz M.D. 08/13/2023 1:21 PM
--- NOTE | 2023-08-13 18:26 | Hospitalist Progress Note ---
Date of Service August 13, 2023 Assessment & Plan (1) Acute calculous cholecystitis: Plan: This actually appears to be choledocholithiasis without acute cholecystitis. MRCP was completed today, August 13. She will undergo EUS with ERCP tomorrow, August 14. General surgery consultation appreciated. There is a possibility she may also undergo cholecystectomy tomorrow, August 14. She remains on intravenous Cipro and Flagyl, day 2. She is allergic to penicillin. Fortunately, her total bilirubin levels remain within normal limits. (2) Hyperglycemia: Plan: Present on admission. Now improved. Continue current medical management (3) Heart palpitations: Plan: From sinus tachycardia present on admission. Now resolved. Troponin is within normal limits. No acute EKG changes. Telemetry. (4) Hypomagnesemia: Plan: Parenteral replacement. Serial labs (5) T2DM (type 2 diabetes mellitus): Plan: Sliding scale coverage for now. Metformin is on hold. Basal insulin therapy ordered (6) Elevated transaminase level: Plan: Due to choledocholithiasis. Fortunately, total bilirubin levels are normal. No evidence of obstructive jaundice. Serial labs. Statin therapy is currently on hold. (7) Hyperlipidemia: Plan: Statin therapy is temporarily on hold (8) Hypothyroidism: Plan: Stable. Continue levothyroxine. Normal TSH level Plan The patient has requested SNF placement at discharge. PT and OT assessments have been requested Admission and Anticipated Discharge Date Admission Date: August 13, 2023 Subjective Alert and oriented. No distress. MRCP completed today, August 13. She will undergo EUS with ERCP tomorrow, August 14. General surgery consult appreciated. They will coordinate with GI to determine if cholecystectomy can be performed tomorrow also. She remains on intravenous Cipro and Flagyl, day 2. She is allergic to penicillin. Total bilirubin remains normal at 0.6. Magnesium corrected to 2.6 but down somewhat today to 1.6. Review of Systems 2 Review of Systems: Constitutional-no fever or chills ENT-no blurred vision, no double vision, no epistaxis, no sore throat Respiratory-no cough, no wheezing, no shortness of breath Cardiac-no palpitations, no chest pain, no syncope GI-intermittent nausea and right upper quadrant pain. No vomiting, diarrhea, melena, hematochezia -no urinary retention, no urinary incontinence, no dysuria, no hematuria Musculoskeletal-no joint pain, no muscle tenderness Skin-no bruising, no rashes, no pruritus Neuro-generalized weakness. No paresthesia Psych-no depression, no anxiety Physical Exam 2 Physical Exam: General-alert and oriented x3, no fevers, no chills HEENT-head atraumatic and normocephalic, pupils equal and reactive to light, extraocular muscles intact Neck-no lymphadenopathy or thyromegaly, trachea midline Chest-clear to auscultation and percussion. No rales, wheezing or rhonchi Cardiac-regular rate and rhythm, normal S1 and S2 Abdomen-normal bowel sounds, nontender, no hepatosplenomegaly Extremities-no cyanosis, clubbing, or edema Neuro-cranial nerves II through XII intact, motor and sensory function within normal limits, strength symmetrical with generalized weakness , no focal deficits Psych-normal affect, normal mood Results & Data Results & Data Vital Signs (Past 12 Hours) Vital Signs Temp Pulse Pulse Resp BP Pulse Ox O2 Del Method 08/13/23 16:19 104 H 08/13/23 16:15 36.5 C 86 16 151/92 H 94 Room Air 08/13/23 11:37 36.5 C 88 16 163/100 H 95 Room Air 08/13/23 07:42 36.4 C L 80 16 162/95 H 95 Room Air 08/13/23 07:20 86 Laboratory Results 08/13/23 05:21 08/13/23 05:21 PG Care Time/CCT Total # of Minutes Spent Total Time Spent with Patient: Total time spent is greater than 50% in coordination of care (as documented) at patient's floor/unit and/or counseling patient: Coding Level of Care Code 13050 SUB INP/OBS CARE 3/50MIN Diagnoses Acute calculous cholecystitis K80.00 Hyperglycemia R73.9 Heart palpitations R00.2 Hypomagnesemia E83.42 T2DM (type 2 diabetes mellitus) E11.9 Elevated transaminase level R74.01 Hyperlipidemia E78.5 Hypothyroidism E03.9
[2023-08-13] MEDS: MIRTAZAPINE TAB 15 MG TAB PO SCH (20:38)
[2023-08-13] MEDS: VORTIOXETINE HYDROBROMIDE 20MG PO SCH (20:38)
[2023-08-13] MEDS: BREXPIPRAZOLE 1 MG TAB PO SCH (20:39)
[2023-08-13] MEDS ORDERED: VORTIOXETINE HYDROBROMIDE 20MG PO SCH (21:00)
[2023-08-14] MEDS: LEVOTHYROXINE SODIUM 112 MCG TABLET PO SCH (04:05)
[2023-08-14] MEDS: CIPROFLOXACIN / D5W 400 MG/200 ML BAG IV SCH ×2 (04:05→15:52)
[2023-08-14 06:13] LABS: Basophils # (auto) 0.02 K/uL (0.00-0.20); Basophils % (auto) 0.3 %; Eosinophils # (auto) 0.26 K/uL (0.00-0.50); Eosinophils % (auto) 3.9 %; Hematocrit (blood only) 39.2 % (37.0-47.0); Hemoglobin 13.1 g/dl (12.0-16.0); Immature Granulocytes # (auto) 0.01 K/uL (0.01-0.20); Immature Granulocytes % (auto) 0.2 %; Lymphocytes # (auto) 2.66 K/uL (1.20-3.40); Mean Corpuscular Hemoglobin 29.3 pg (25.0-34.0); Mean Corpuscular Hgb Conc 33.4 g/dL (32.0-36.0); Mean Corpuscular Volume 87.7 fL (80.0-100.0); Mean Platelet Volume 9.9 fL (9.4-12.4); Monocytes # (auto) 0.63 K/uL (0.11-0.59); Monocytes % (auto) 9.5 %; Neutrophils # (auto) 3.07 K/uL (1.40-6.50); Neutrophils % (auto) 46.1 %; Platelet Count 229 K/uL (130-400); RDW Coefficient of Variation 13.8 % (11.5-14.5); RDW Standard Deviation 44.4 fL (36.4-46.3); Red Blood Count 4.47 M/uL (4.20-5.40); White Blood Count 6.65 K/ul (4.8-10.8)
[2023-08-14] MEDS: INSULIN ASPART PER UNIT CHARGE SC SCH ×4 (06:21→20:51)
[2023-08-14 06:39] LABS: Albumin Globulin Ratio 1.2 (0.9-2); Albumin Level 3.4 gm/dl (3.4-5.0); BUN Creatinine Ratio 9.8 (10-20); Bilirubin,Total 0.5 mg/dl (0.2-1.0); Calcium 9.2 mg/dl (8.6-10.3); Creatinine Clr Calc Pharmacy 86.2 ml/min; Est GFR (African American) 108.7 ml/min; Est GFR (Non-African American) 93.8 ml/min; Globulin 2.8 gm/dl (2.5-4.0); Potassium 3.9 mmol/L (3.5-5.1); Total Protein 6.2 gm/dl (6.0-8.3)
[2023-08-14] MEDS: metroNIDAZOLE 500 MG/100 ML BAG IV SCH ×3 (07:28→22:37)
--- NOTE | 2023-08-14 07:45 | Surgery Progress Note ---
Date of Service August 14, 2023 Assessment & Plan (1) Acute calculous cholecystitis: Plan: pt resting in bed Denies N/V, Fever, Chills, SOB, CP TTP RUQ, RLQ VSS Scheduled for ERCP today Timing of Cholecystectomy undetermined, possibly tomorrow Keep NPO at LA Will continue to monitor (2) Choledocholithiasis: Admission and Anticipated Discharge Date Admission Date: August 13, 2023 Supervising Physician Co-Signing Physician Notes pnt S&E, labs reviewed, agree with above. Choledocholithiasis, scheduled for ERCP today. afvss, abd soft, nt, nd. labs reviewed. ercp today plan for robotic assisted laparoscopic cholecystectomy under same anesthesia risks discussed to include but not limited to bleeding, infection, retained stone, bile leak, open surgery, damage to surrounding structures including bile duct, need for future or more extensive surgery, failure to treat symptoms, and risks of anesthesia. patient consented Subjective pt resting in bed Denies N/V, Fever, Chills, SOB, CP TTP RUQ, RLQ Review of Systems Constitutional: no fever and no chills Ear, Nose, Mouth, Throat: no problem reported Respiratory: no dyspnea Cardiovascular: no chest pain Gastrointestinal: + abdominal pain; no nausea and no vomit ing Genitourinary: no problem reported Musculoskeletal: no muscle weakness Integumentary: no rash Neurologic: no confusion and no memory loss Psychiatric: no problem reported Physical Exam Physical Exam: sleeping, arousable to verbal stimuli Constitutional: cooperative, comfortable and + overweight; no acute distress ENMT: external ear and nose normal, oropharynx normal Neck: trachea midline, no thyromegaly Respiratory: normal respiratory effort and able to speak in complete sentences; no respiratory distress Cardiovascular: Rate/Rhythm: regular rate Gastrointestinal (Abdomen): Inspection/Auscultation: abdomen not distended Percussion/Palpation: + abdomen tender (RUQ RLQ), + guarding and abdomen soft; abdomen not rigid Musculoskeletal: no cyanosis or clubbing, extremities motor strength 5/5 Skin: no rashes, warm and dry Neurologic: not confused Psychiatric: A+Ox3, euthymic affect Results & Data Vital Signs (Past 12 Hours) Vital Signs Temp Pulse Pulse Resp BP BP Pulse Ox 08/14/23 07:21 82 08/14/23 02:10 97.7 F 82 16 161/94 H 96 08/13/23 22:15 97.7 F 94 H 18 156/90 H 94 08/13/23 22:00 92 H 08/13/23 20:30 O2 Del Method 08/14/23 07:21 08/14/23 02:10 Room Air 08/13/23 22:15 Room Air 08/13/23 22:00 08/13/23 20:30 Room Air PG Care Time/CCT Total # of Minutes Spent Total Time Spent with Patient: Total time spent is greater than 50% in coordination of care (as documented) at patient's floor/unit and/or counseling patient: Coding Level of Care Code 45624 SUB INP/OBS CARE 08/30MIN Diagnoses Acute calculous cholecystitis K80.00 Choledocholithiasis K80.50
[2023-08-14] MEDS: ASPIRIN 81 MG ECTAB PO SCH (09:02)
--- NOTE | 2023-08-14 09:02 | Gastroenterology Progress Note ---
Date of Service August 14, 2023 Assessment & Plan (1) Elevated transaminase level: (2) Choledocholithiasis: Plan: Pt is a 68 yo female admitted w hyperglycemia and palpitations; noted to have elevated LFTs w US abd evidence of dilated CBD w equivocal stone, gallbladder sludge and small stone on neck area. MRCP: 1. Distended gallbladder containing layering stones and sludge. Question mild gallbladder wall thickening. There is no definitive MRI evidence of acute cholecystitis. Correlate clinically. 2. There is mild intra and extrahepatic biliary ductal dilatation. There is layering stones/sludge seen within the common bile duct. 3. Pancreas divisum. - Cipro/Flagyl IV - Trend LFTs - MRCP today - NPO for EUS/ERCP today - Surgery following - GI recs to follow after procedures above Admission and Anticipated Discharge Date Admission Date: August 13, 2023 Supervising Physician Co-Signing Physician Notes I saw and evaluated the patient, we are planning to do ERCP today for treatment of choledocholithiasis as noted on the patient's MRCP. We discussed risks and benefits to include bleeding infection perforation pain pancreatitis and failed biliary cannulation. Subjective Pt denies fever, chills, CP, SOB, abd pain, n/v. Review of Systems Review of Systems: All systems reviewed & are unremarkable except as noted in HPI & below Physical Exam Constitutional: WD/WN, vitals as above well groomed, cooperative and comfortable Eyes: PERRL, conjunctivae normal, anicteric sclerae ENMT: external ear and nose normal, oropharynx normal Respiratory: normal respiratory effort, lungs clear to auscultation Cardiovascular: RRR, no murmur, no edema Gastrointestinal (Abdomen): TTP RUQ, soft, BS present Skin: no rashes, warm and dry no jaundice Psychiatric: A+Ox3, euthymic affect Lymphatic: no lymphedema Results & Data Vital Signs (Past 12 Hours) Vital Signs Temp Pulse Pulse Resp BP BP Pulse Ox 08/14/23 08:06 36.5 C 77 16 143/89 H 93 08/14/23 07:30 08/14/23 07:21 82 08/14/23 02:10 36.5 C 82 16 161/94 H 96 08/13/23 22:15 36.5 C 94 H 18 156/90 H 94 08/13/23 22:00 92 H O2 Del Method 08/14/23 08:06 Room Air 08/14/23 07:30 Room Air 08/14/23 07:21 08/14/23 02:10 Room Air 08/13/23 22:15 Room Air 08/13/23 22:00
[2023-08-14] MEDS ORDERED: LORazepam 0.5 MG in SYRINGE 0.25 ML IV PRN (11:40)
[2023-08-14] MEDS ORDERED: LORazepam 0.5 MG in SYRINGE 0.25 ML IV STA (11:40)
[2023-08-14] MEDS ORDERED: BUPIVACAINE 0.5 % 5 MG/1 ML MPF 30ML VIAL ONE (11:53)
[2023-08-14] MEDS ORDERED: PROPOFOL IV EMULSION 10 MG/ML 20 ML VIAL IV ONE (12:02)
[2023-08-14] MEDS ORDERED: fentaNYL citrate PF 100 MCG/2 ML VIAL ONE ×3 (12:02→13:45)
[2023-08-14] MEDS ORDERED: LIDOCAINE 2% 2 ML VIAL/AMP(20MG/ML) INFIL ONE (12:02)
[2023-08-14] MEDS ORDERED: ONDANSETRON INJ 2 MG/ML 2 ML VIAL ONE (12:03)
[2023-08-14] MEDS ORDERED: ROCURONIUM BROMIDE 10 MG/ML 5 ML VIAL IV ONE ×2 (12:03→13:46)
[2023-08-14] MEDS ORDERED: NEOSTIGMINE METHYLSULFATE 1 MG/ML 10ML VIAL ONE (12:03)
[2023-08-14] MEDS ORDERED: GLYCOPYRROLATE 0.2 MG/ML VIAL ONE (12:03)
[2023-08-14] MEDS ORDERED: DEXAMETHASONE SOD INJ 4 MG/ML VIAL ONE (12:03)
[2023-08-14] MEDS ORDERED: fentaNYL citrate PF 100 MCG/2 ML VIAL IV PRN (12:10)
[2023-08-14] MEDS ORDERED: ONDANSETRON INJ 2 MG/ML 2 ML VIAL IV PRN (12:10)
[2023-08-14] MEDS ORDERED: ePHEDrine sulfate 50 MG/ML AMP IV PRN (12:10)
[2023-08-14] MEDS ORDERED: HYDROmorphone INJ 2 MG/ML SYR/VIAL IV PRN (12:10)
[2023-08-14] MEDS ORDERED: ATROPINE SULFATE 0.1 MG/ML 10ML SYR IV PRN (12:10)
--- NOTE | 2023-08-14 12:10 | Anesthesiology Consultation ---
Date of Service August 14, 2023 Assessment & Plan ASA ASA3 Proposed Anesthesia Anesthesia Type: General Risk / Benefits Reviewed With: PT / POA / Parent / Guardian, Accepts Plan and Informed Consent Obtained History Surgery Operation Date: 08/14/23 12:10 Proposed Procedures p Endoscopic Ultrasonography Upper - Savannah Zhou DO s Endoscopic Retrograde Cholangiopancreatogram - Savannah Zhou DO s Robotic Laparoscopic Cholecystectomy - Stephen Talley DO, FACS Height/Weight Height: 5 ft 3 in Weight: 74 kg Allergies Allergy/AdvReac Type Severity Reaction Status Date / Time cisapride Allergy Intermediate Hives Verified 08/11/23 20:39 doxycycline Allergy Intermediate Rash Verified 08/11/23 20:39 gadobutrol [From Gadavist] Allergy Intermediate Hives Verified 08/11/23 20:39 lansoprazole Allergy Intermediate Hives Verified 08/11/23 20:39 Penicillins Allergy Intermediate Rash Verified 08/11/23 20:39 tetracycline Allergy Intermediate Rash Verified 08/11/23 20:39 Medications Home Medications Medication Instructions Recorded Confirmed Last Taken mirtazapine 30 mg tablet 30 mg PO HS 05/04/18 08/11/23 08/11/23 aspirin 81 mg tablet,delayed 81 mg PO QAM #30 tabs 03/02/19 08/11/23 08/11/23 release (Ecotrin Low Strength) vortioxetine 20 mg tablet 20 mg PO QPM 06/06/19 08/11/23 08/10/23 (Trintellix) flash glucose sensor (FreeStyle 06/16/21 05/21/23 Unknown [place] 14 Day Sensor kit) insulin lispro 100 unit/mL 3 unit subcut TIDWMEAL PRN DEPENDS 04/03/22 08/11/23 08/11/23 subcutaneous pen (Humalog KwikPen ON BSG (U-100) Insulin) brexpiprazole 1 mg tablet (Rexulti) 1 mg PO HS 04/08/22 08/11/23 08/10/23 pen needle, diabetic 32 gauge x #100 ea 12/22/22 05/21/23 Unknown " (BD Ultra-Fine Flores Pen Needle) insulin glargine 100 unit/mL (3 16 unit (0.16 mL) subcut QAM #15 mL 03/02/23 08/11/23 08/11/23 mL) subcutaneous pen (Lantus Solostar U-100 Insulin) levothyroxine 112 mcg tablet 112 mcg PO DAILYBB #90 tabs 05/22/23 08/11/23 08/11/23 metformin 1,000 mg tablet 1,000 mg PO BID #180 tabs 05/31/23 08/11/23 08/11/23 cholecalciferol (vitamin D3) 125 5,000 unit PO DAILY #30 caps 06/13/23 08/11/23 08/11/23 mcg (5,000 unit) capsule atorvastatin 20 mg tablet 20 mg PO QPM #90 tabs 07/09/23 08/11/23 08/10/23 canagliflozin 100 mg tablet 100 mg PO QAM #30 tabs 07/23/23 08/11/23 08/11/23 (Invokana) Active Medications Generic Name Dose Route Start Last Admin Trade Name Freq PRN Reason Stop Dose Admin Aspirin 81 mg 08/12/23 09:00 08/14/23 09:02 Aspirin 81 Mg Ectab PO 09/11/23 08:59 Not Given QAM COURTNEY Brexpiprazole 1 mg 08/13/23 21:00 08/13/23 20:39 Brexpiprazole 1 Mg Tab PO 09/12/23 20:59 1 mg HS COURTNEY Administration Enoxaparin Sodium 40 mg 08/12/23 00:00 08/12/23 21:27 Enoxaparin Inj 40 Mg/0.4 Ml Syr SQ 09/11/23 00:00 40 mg HS COURTNEY Administration Lactated Ringer's 1,000 mls @ 80 mls/hr 08/11/23 21:45 08/13/23 23:17 Lr IV 09/10/23 21:44 80 mls/hr .[id number] COURTNEY Administration Ciprofloxacin 400 mg in 200 mls @ 100 mls/hr 08/12/23 15:30 08/14/23 06:05 Cipro / D5w IV 08/22/23 15:29 Infused Q12H COURTNEY Infusion Protocol Metronidazole 500 mg in 100 mls @ 100 mls/hr 08/12/23 15:30 08/14/23 09:02 Flagyl IV 08/22/23 15:29 Infused Q8H COURTNEY Infusion Protocol Insulin Aspart 0 units 08/13/23 16:30 08/14/23 06:21 Insulin Aspart Per Unit Charge SC 09/12/23 05:59 2 units ACHS COURTNEY Administration Levothyroxine Sodium 112 mcg 08/12/23 06:30 08/14/23 04:05 Levothyroxine Sodium 112 Mcg Tablet PO 09/11/23 06:29 Not Given DAILYBB COURTNEY Mirtazapine 30 mg 08/11/23 22:30 08/13/23 20:38 Mirtazapine Tab 15 Mg Tab PO 09/10/23 22:29 30 mg HS COURTNEY Administration Vortioxetine 1 each 08/13/23 21:00 08/13/23 20:38 Vortioxetine Hydrobromide 20mg PO 09/12/23 20:59 1 each HS COURTNEY Administration NPO Date Last Intake of Fluids: 08/13/23 Time Last Intake of Fluids: 00:00 Date Last Intake of Solids: 08/10/23 Time Last Intake of Solids: 07:00 Past Medical History Medical History Atrial tachycardia Elevated lactic acid level Hypothyroidism Elevated lactic acid level Hyperglycemia Chest pain Hyperglycemia Abdominal pain Lactic acidemia Abdominal pain Diarrhea Hypoglycemia History of anemia Gout Cervical dysplasia Diabetic peripheral neuropathy H/O: stroke Cerebellar infarct Acute CVA (cerebrovascular accident) Postsurgical hypothyroidism Altered mental status Vertigo Hypothyroidism Sensory ataxia Polyneuropathy Major depressive disorder Lumbosacral radiculopathy Hyperlipidemia GERD (gastroesophageal reflux disease) Encounter for routine gynecological examination Diabetic peripheral neuropathy 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 CVA (cerebral vascular accident) Chronic skin ulcer of right ear Depression with anxiety T2DM (type 2 diabetes mellitus) Weakness TIA (transient ischemic attack) Neurological deficit present Hyperglycemia Dizziness Wound, open, ear, external with complication Suicide attempt Major depressive disorder, recurrent episode, severe with anxious distress Lumbar stenosis with neurogenic claudication Lower extremity weakness Intractable low back pain Hypotension Hypokalemia Hypertension HNP (herniated nucleus pulposus), lumbar Fecal impaction Dyslipidemia DKA (diabetic ketoacidoses) Constipation Chest pain Anxiety Altered mental status Acute gastritis Diabetes Exercise / Class Metabolic Activity II 4-5 Yardwork/Stairs/Walk up hill Past Family History Family History Mother , in her early 70s of some sort of cancer (patient not clear if it was breast cancer) Breast cancer Diabetes Grandmother Breast cancer Grandmother Breast cancer Unknown Colon cancer Father , Diet it age 78 of a myelodysplastic syndrome. He also had Itwwxcd-Ppuud-Jqbrr disease. Myelodysplasia (myelodysplastic syndrome) Uniogsw-Tyvrb-Ykdqf disease Heart disease Brother Eqjtzml-Dayui-Rcwag disease Other No pertinent family history in first degree relatives Past Surgical History Surgical History History of total abdominal hysterectomy H/O laparoscopy Status post hysteroscopic ablation of endometrium H/O dilation and curettage History of dental surgery History of colposcopy with cervical biopsy Previous back surgery History of tonsillectomy Status post lumbar spine surgery for decompression of spinal cord H/O cardiac catheterization History of hysterectomy Past Anesthesia History No Hx of Anesthesia Complications and No Family Hx of Anesthesia Complications History of PONV No Hx of PONV and No Hx of Motion Sickness Social History Smoking Status: Never smoker Hx Alcohol Use: No Hx Substance Use: No substance use type: does not use Review of Systems denies fever/cough/ colds/ chest pain/ SOB/ AILEEN denies AILEEN Physical Exam Vital Signs Last Vital Signs Temp 36.8 C 08/14/23 12:05 Pulse 91 H 08/14/23 12:05 Resp 20 08/14/23 12:05 BP 148/93 H 08/14/23 12:05 Pulse Ox 95 08/14/23 12:05 O2 Del Method Room Air 08/14/23 12:05 ENMT Mouth: no TMJ abnormality and no dentition abnormality Thyromental Distance: > or= 3.5 Finger Breadths Mallampati Class: II Neck neck extension not limited Respiratory normal respiratory effort; no respiratory distress Auscultation: lungs clear to auscultation bilaterally Cardiovascular Rate/Rhythm: regular rate and regular rhythm Neurologic moves all extremities Psychiatric Orientation: alert and oriented x 3 Testing Laboratory Results 08/14/23 05:25 08/14/23 05:25 Hemoglobin A1c 7.8 % (4.5-5.6) H 08/11/23 17:28 Urine Color Yellow 08/11/23 17:46 Urine Appearance Clear (Clear) 08/11/23 17:46 Urine pH 5.0 (4.5-7.5) 08/11/23 17:46 Ur Specific [place] 1.040 (1.000-1.030) H 08/11/23 17:46 Urine Protein Negative (Negative) 08/11/23 17:46 Urine Glucose (UA) 3+ (Negative) H 08/11/23 17:46 Urine Ketones Negative (Negative) 08/11/23 17:46 Urine Nitrite Negative (Negative) 08/11/23 17:46 Ur Leukocyte Esterase Negative (Negative) 08/11/23 17:46 08/14/23 06:07 POC Glucose 175 H
[2023-08-14] MEDS ORDERED: INDOMETHACIN 50 MG SUPP PR ONE (12:19)
--- NOTE | 2023-08-14 13:20 | GI REPORT ---
Patient Name: Kourtney Trinidad Procedure Date: 08/14/2023 12:39 PM Date of : 1955 Admit Type: Inpatient Age: 68 Gender: Female Attending MD: Savannah Zhou DO, Procedure: ERCP Providers: Savannah Zhou DO Referring MD: Eben Sen Indications: Abdominal pain of suspected biliary origin, Abnormal MRCP, For therapy of bile duct stone(s) Medicines: General Anesthesia Complications: No immediate complications. Estimated blood loss: Minimal. Estimated Blood Loss: Estimated blood loss was minimal. Estimated blood loss was minimal. Procedure: Pre-Anesthesia Assessment: - Prior to the procedure, a History and Physical was performed, and patient medications, allergies and sensitivities were reviewed. The patient's tolerance of previous anesthesia was reviewed. - The risks and benefits of the procedure and the sedation options and risks were discussed with the patient. All questions were answered and informed consent was obtained. - Patient identification and proposed procedure were verified prior to the procedure by the physician, the nurse and the professor of public administration. The procedure was verified in the procedure room. - Pre-procedure physical examination revealed no contraindications to sedation. - ASA Grade Assessment: III - A patient with severe systemic disease. - After reviewing the risks and benefits, the patient was deemed in satisfactory condition to undergo the procedure. - The anesthesia plan was to use general anesthesia. - Immediately prior to administration of medications, the patient was re-assessed for adequacy to receive sedatives. - The heart rate, respiratory rate, oxygen saturations, blood pressure, adequacy of pulmonary ventilation, and response to care were monitored throughout the procedure. - The physical status of the patient was re-assessed after the procedure. After obtaining informed consent, the scope was passed under direct vision. Throughout the procedure, the patient's blood pressure, pulse, and oxygen saturations were monitored continuously. The Duodenoscope was introduced through the mouth, and advanced to the duodenum and used to inject contrast into the bile duct. The ERCP was accomplished without difficulty. The patient tolerated the procedure well. Findings: The certified flex endoscope reprocessor film was normal. The esophagus was successfully intubated under direct vision without detailed examination of the pharynx, larynx, and associated structures, and upper GI tract. The upper GI tract was grossly normal. The major papilla was congested. The bile duct was deeply cannulated with the short-nosed traction sphincterotome and 0.025 in Acrobat 2 guidewire. Contrast was injected. I personally interpreted the bile duct images. Contrast extended to the entire biliary tree. The lower third of the main bile duct contained filling defect(s) thought to be a stone and sludge. The biliary orifice was stenotic, likely from passage of prior stone material. The common bile duct was modestly dilated to at least 10 mm. This appeared benign. Biliary sphincterotomy was made with a traction (standard) sphincterotome using ERBE electrocautery. There was no post-sphincterotomy bleeding. To discover objects, the biliary tree was swept with a 15 mm balloon starting at the bifurcation. Sludge was swept from the duct. Many stones were removed. No stones remained. For stricture remodeling, one 10 Fr by 6 cm covered metal biliary stent (Penitas Viabil) was placed 6 cm into the common bile duct. Bile flowed through the stent. The stent was in good position. The endoscope was withdrawn from the patient. Indomethacin 100 mg was given via suppository to decrease the risk of post-ERCP pancreatitis (PEP). Impression: - The major papilla appeared congested. - Biliary papillary stenosis, benign. - A filling defect consistent with a stone and sludge was seen on the cholangiogram. - Choledocholithiasis was found. Complete removal was accomplished by biliary sphincterotomy and balloon extraction. - A biliary sphincterotomy was performed. - The biliary tree was swept. - One covered metal biliary stent was placed into the common bile duct. - Indomethacin given to decrease risk of post-ERCP pancreatitis. Recommendation: - Avoid aspirin and nonsteroidal anti-inflammatory medicines for 1 week. - Cholecystectomy per General Surgery - Clear liquid diet today from a GI perspective. - Use broad spectrum antibiotics for 2 weeks. - Repeat ERCP in 6 weeks to remove stent. Savannah Zhou D.O. Savannah Zhou, 08/14/2023 1:19:29 PM This report has been signed electronically. Note Initiated On: 08/14/2023 12:39 PM Number of Addenda: 0 I attest to the content of the Intraoperative Record and orders documented therein, exceptions below {[id number]}
--- NOTE | 2023-08-14 13:20 | Post Operative Brief Note ---
Immediate Post Op Note v1 Date of Surgery August 14, 2023 Pre & Post Diagnosis Operation Date: 08/14/23 12:10 Pre-Op Diagnosis: Common bile stones I identified the patient and participated in the time-out.: Yes Procedure Operation Date: 08/14/23 12:10 Actual Procedures p Endoscopic retrograde cholangiopancreatography(Not Applicable) - Savannah Zhou DO Surgeon Savannah Zohu, DO Car Spotter none Estimated Blood Loss 0 Findings Consistent with Post-Op Diagnosis
--- NOTE | 2023-08-14 13:21 | Communication Note ---
Date of Service: August 14, 2023 Patient underwent ERCP this afternoon for suspected choledocholithiasis. We were able to remove several stones from the common bile duct and identified evidence of papillary stenosis. This was treated with biliary sphincterotomy and placement of a covered metal stent. Recomendations: complete a 2 week course of abx avoid nsaids / anti-coagulation for 1 week please cholecystectomy per general surgery repeat ERCP for stent removal in 8 weeks patient may have clears this evening from a GI perspective please calll with any questions, GI to sign off.
--- NOTE | 2023-08-14 13:25 | Fluoroscopy Report ---
[place] ERCP biliary ductal CLINICAL HISTORY: ERCP. Choledocholithiasis. COMPARISON STUDY: MRCP 08/13/2023. FLUOROSCOPY TIME: 30 seconds FLUOROSCOPY IMAGES: 12 Ka,r: 8 mGy FINDINGS: The ampulla was cannulated and contrast was injected into the common bile duct. A balloon s weep was performed. This is followed by placement of a common bile duct stent which appears in good p osition. IMPRESSION: Fluoroscopic assistance as above. ACT 112: Negative or not required by law. Electronically signed by: Marcus Stephenson M.D. 08/14/2023 1:23 PM
[2023-08-14] MEDS ORDERED: LABETALOL HCL IV 5 MG/ML 20ML IV ONE (13:54)
[2023-08-14] MEDS ORDERED: MoRPHine SULFATE 4 MG/ML 1 ML CARP\\VIAL IV PRN (14:21)
[2023-08-14] MEDS ORDERED: oxyCODONE HCL IR 5 MG TAB (IMMEDIATE RELEASE) PO PRN ×2 (14:21)
[2023-08-14] MEDS ORDERED: MoRPHine SULFATE 2 MG/ML CARP IV PRN (14:21)
--- NOTE | 2023-08-14 14:39 | Operative Report ---
PG Post Operative Report Pre & Post Diagnosis Operation Date: 08/14/23 12:10 Pre-Op Diagnosis: Common bile stones, Acute calculous cholecystitis Post-Op Diagnosis: Common bile stones, Acute calculous cholecystitis I identified the patient and participated in the time-out.: Yes Procedure Operation Date: 08/14/23 12:10 Actual Procedures p Endoscopic retrograde cholangiopancreatography(Not Applicable) - DO nguyen Bailey Robotic Laparoscopic Cholecystectomy - Stephen Talley DO, ADEEL Surgeon Stephen Talley DO, ADEEL Help Desk Specialist Gerri Junior Estimated Blood Loss 0 Findings Consistent with Post-Op Diagnosis Acute on chronic moderates cholecystitis. Critical view of safety obtained, cystic duct and artery doubly clipped and divided. Some spillage and stones of bile, retrieved and irrigated. Good hemostasis. Specimens Gallbladder Anesthesia Type General Complications none Disposition Accompanied Patient To Recovery: No Disposition: Recovery Room Indications 68-year-old female admitted with suspicion for choledocholithiasis and cholelithiasis. Plan for ERCP by GI followed by robotic cholecystectomy. The risks of the procedure were discussed, all questions were answered, and the patient agreed to proceed with surgery as planned. Description of Procedure The patient was properly identified, consented, and taken to the operating room. She underwent ERCP by Dr. Zhou from gastroenterology, please see his dictation for his portion of the procedure. She was then placed in the supine position. 2.5 mg of indocyanine green were administered IV prior to the surgery. General endotracheal anesthesia was induced. SCDs and a safety belt were placed. Preoperative antibiotics were administered. The patient's abdomen was prepped and draped in the standard sterile fashion. A surgical timeout was performed and all parties were in agreement that this was the correct patient and procedure to be performed and we continued as planned. An incision was made just above the umbilicus and to the right of midline. Veress needle was inserted and saline drop test confirmed entry to the abdomen. The abdomen was insufflated with carbon dioxide which the patient tolerated incident. Veress needle was removed and the abdomen is entered using the Optiview technique and a 5 mm camera. The introducer was removed and the abdomen inspected. No damage from initial trocar placement or Veress needle placement was identified. There were no significant abnormalities to the 4 quadrants of the abdomen. 8 mm robotic ports were then placed on the left and right. An additional 5 mm assistant women's tennis coach port was placed in the lateral right subcostal position. The patient was placed in reverse Trendelenburg position an d rotated towards the left. The robot was then docked and the camera and robotic instruments were inserted. The gallbladder was contracted and appeared be moderately inflamed with acute on chronic inflammation. The dome of the gallbladder was grasped by the assistant women's tennis coach and retracted towards the left upper quadrant and the infundibulum was retracted toward the right lower quadrant revealing Calot's triangle. Peritoneal attachments were taken down with electrocautery and blunt dissection. The cystic duct and artery were circumferentially dissected. A window of safety was obtained showing the cystic duct entering the gallbladder with no aberrant structures noted. The cystic duct and artery were doubly clipped and divided. The gallbladder was then lifted off the gallbladder fossa with electrocautery. During the dissection there was spillage of sludge and gravelly type stones. The stones were retrieved, and the right upper quadrant was irrigated. Mild oozing from the liver bed was controlled with electrocautery. Hemostasis was found to be good. The gallbladder was placed in an Endo Catch bag and removed through the one of the port sites. The instruments were removed and the robot was undocked. The trochars were removed and the abdomen was allowed to collapse. The skin of all ports was closed with 4-0 Monocryl subcuticular sutures. Dermabond was placed over the wounds. The patient was extubated in the operating room and taken to the PACU where she recovered without apparent incident. All sponge, instrument and needle counts were correct at the conclusion of the procedure. The patient tolerated the procedure well. The nurse practitioner was present and scrubbed for the entirety of the case and was essential in positioning the patient, prepping and draping, retraction and exposure, driving the laparoscope, exchange of the robotic instruments removal of the gallbladder, closure of the incisions, and placement of the dressings. I attest to the content of the Intraoperative Record and any orders documented therein. Any exceptions are noted below.
--- NOTE | 2023-08-14 15:19 | Hospitalist Progress Note ---
Date of Service August 14, 2023 Assessment & Plan (1) Acute calculous cholecystitis: Plan: This actually appears to be acute on chronic cholecystitis associated with choledocholithiasis. MRCP was completed on August 13. She subsequently underwent EUS with ERCP today, August 14 day followed by robotic laparoscopic cholecystectomy.. General surgery consultation appreciated. She remains on intravenous Cipro and Flagyl, day 2. She is allergic to penicillin. Fortunately, her total bilirubin levels remain within normal limits. (2) Hyperglycemia: Plan: Present on admission. Now improved. Continue current medical management (3) Heart palpitations: Plan: From sinus tachycardia present on admission. Now resolved. Troponin is within normal limits. No acute EKG changes. Telemetry. (4) Hypomagnesemia: Plan: Corrected with parenteral replacement. Serial labs (5) T2DM (type 2 diabetes mellitus): Plan: Sliding scale coverage for now. Metformin is on hold. Basal insulin therapy ordered (6) Elevated transaminase level: Plan: Due to choledocholithiasis. Fortunately, total bilirubin levels are normal. No evidence of obstructive jaundice. Serial labs. Statin therapy is currently on hold. (7) Hyperlipidemia: Plan: Statin therapy is temporarily on hold (8) Hypothyroidism: Plan: Stable. Continue levothyroxine. Normal TSH level Plan Planned discharge to [facility] on August 16 Admission and Anticipated Discharge Date Admission Date: August 13, 2023 Subjective The patient was seen preoperatively this morning. She has some generalized anxiety and parenteral lorazepam has been ordered as needed. She subsequently underwent ERCP procedure and robotic laparoscopic cholecystectomy. If recovery is uneventful, she will be discharged to [facility] on August 16 Review of Systems 2 Review of Systems: Constitutional-no fever or chills ENT-no blurred vision, no double vision, no epistaxis, no sore throat Respiratory-no cough, no wheezing, no shortness of breath Cardiac-no palpitations, no chest pain, no syncope GI-intermittent nausea and right upper quadrant pain. No vomiting, diarrhea, melena, hematochezia -no urinary retention, no urinary incontinence, no dysuria, no hematuria Musculoskeletal-no joint pain, no muscle tenderness Skin-no bruising, no rashes, no pruritus Neuro-generalized weakness. No paresthesia Psych-no depression, no anxiety Physical Exam 2 Physical Exam: General-alert and oriented x3, no fevers, no chills HEENT-head atraumatic and normocephalic, pupils equal and reactive to light, extraocular muscles intact Neck-no lymphadenopathy or thyromegaly, trachea midline Chest-clear to auscultation and percussion. No rales, wheezing or rhonchi Cardiac-regular rate and rhythm, normal S1 and S2 Abdomen-normal bowel sounds, nontender, no hepatosplenomegaly Extremities-no cyanosis, clubbing, or edema Neuro-cranial nerves II through XII intact, motor and sensory function within normal limits, strength symmetrical with generalized weakness , no focal deficits Psych-normal affect, normal mood Results & Data Results & Data Vital Signs (Past 12 Hours) Vital Signs Temp Pulse Pulse Pulse Resp BP BP 08/14/23 15:10 82 16 146/86 H 08/14/23 15:00 74 10 L 147/87 H 08/14/23 14:50 36.0 C L 73 8 L 151/88 H 08/14/23 12:05 36.8 C 91 H 20 148/93 H 08/14/23 08:06 36.5 C 77 16 143/89 H 08/14/23 07:30 08/14/23 07:21 82 Pulse Ox O2 Del Method O2 Flow Rate 08/14/23 15:10 96 Oxymask 4 08/14/23 15:00 96 Oxymask 4 08/14/23 14:50 96 Oxymask 6 08/14/23 12:05 95 Room Air 08/14/23 08:06 93 Room Air 08/14/23 07:30 Room Air 08/14/23 07:21 Laboratory Results 08/14/23 05:25 08/14/23 05:25 PG Care Time/CCT Total # of Minutes Spent Total Time Spent with Patient: Total time spent is greater than 50% in coordination of care (as documented) at patient's floor/unit and/or counseling patient: Coding Level of Care Code 11744 SUB INP/OBS CARE 3/50MIN Diagnoses Acute calculous cholecystitis K80.00 Hyperglycemia R73.9 Heart palpitations R00.2 Hypomagnesemia E83.42 T2DM (type 2 diabetes mellitus) E11.9 Elevated transaminase level R74.01 Hyperlipidemia E78.5 Hypothyroidism E03.9
[2023-08-14] MEDS ORDERED: LANTUS PER UNIT CHARGE SC SCH (15:30)
--- NOTE | 2023-08-14 15:34 | Anesthesiology Progress Note ---
Date of Service August 14, 2023 Anesthesia Post Procedure Vital Signs Vital Signs: Temp Pulse Pulse Pulse Resp BP BP 08/14/23 15:30 37.0 C 81 15 166/98 H 08/14/23 15:20 78 12 153/96 H 08/14/23 15:10 82 16 146/86 H 08/14/23 15:00 74 10 L 147/87 H 08/14/23 14:50 36.0 C L 73 8 L 151/88 H 08/14/23 12:05 36.8 C 91 H 20 148/93 H 08/14/23 08:06 36.5 C 77 16 143/89 H 08/14/23 07:30 08/14/23 07:21 82 08/14/23 02:10 36.5 C 82 16 161/94 H 08/13/23 22:15 36.5 C 94 H 18 156/90 H 08/13/23 22:00 92 H 08/13/23 20:30 08/13/23 19:00 36.6 C 91 H 16 128/81 08/13/23 16:19 104 H 08/13/23 16:15 36.5 C 86 16 151/92 H Pulse Ox O2 Del Method O2 Flow Rate 08/14/23 15:30 95 Oxymask 2 08/14/23 15:20 97 Oxymask 4 08/14/23 15:10 96 Oxymask 4 08/14/23 15:00 96 Oxymask 4 08/14/23 14:50 96 Oxymask 6 08/14/23 12:05 95 Room Air 08/14/23 08:06 93 Room Air 08/14/23 07:30 Room Air 08/14/23 07:21 08/14/23 02:10 96 Room Air 08/13/23 22:15 94 Room Air 08/13/23 22:00 08/13/23 20:30 Room Air 08/13/23 19:00 96 Room Air 08/13/23 16:19 08/13/23 16:15 94 Room Air Pain Intensity Right Abdomen: Pain Intensity: 3 Transfer of Care Handoff Completed per policy Notes Mental Status: alert / awake / arousable and participated in evaluation Patient Amnestic to Procedure: Yes Nausea / Vomiting: adequately controlled Pain: adequately controlled Airway Patency, RR, SpO2: stable & adequate BP & HR: stable & adequate Hydration State: stable & adequate Anesthetic Complications: no major complications apparent and Pt Satisfied with anesthetic care
[2023-08-14] MEDS: LACTATED RINGER'S 1,000 ML IV SCH ×2 (20:17→20:21)
[2023-08-14] MEDS: BREXPIPRAZOLE 1 MG TAB PO SCH (20:19)
[2023-08-14] MEDS: MIRTAZAPINE TAB 15 MG TAB PO SCH (20:20)
[2023-08-14] MEDS: VORTIOXETINE HYDROBROMIDE 20MG PO SCH (20:21)
[2023-08-14] MEDS: MELATONIN 3 MG TAB PO PRN (20:51)
[2023-08-15] MEDS: CIPROFLOXACIN / D5W 400 MG/200 ML BAG IV SCH ×2 (03:01→15:33)
[2023-08-15] MEDS: LEVOTHYROXINE SODIUM 112 MCG TABLET PO SCH (04:52)
[2023-08-15 07:30] LABS: Basophils # (auto) 0.03 K/uL (0.00-0.20); Basophils % (auto) 0.3 %; Eosinophils # (auto) 0.02 K/uL (0.00-0.50); Eosinophils % (auto) 0.2 %; Hematocrit (blood only) 36.8 % (37.0-47.0); Hemoglobin 12.2 g/dl (12.0-16.0); Immature Granulocytes # (auto) 0.03 K/uL (0.01-0.20); Immature Granulocytes % (auto) 0.3 %; Lymphocytes # (auto) 2.21 K/uL (1.20-3.40); Lymphocytes % (auto) 18.6 %; Mean Corpuscular Hemoglobin 29.2 pg (25.0-34.0); Mean Corpuscular Hgb Conc 33.2 g/dL (32.0-36.0); Mean Platelet Volume 9.9 fL (9.4-12.4); Monocytes % (auto) 5.1 %; Neutrophils # (auto) 8.96 K/uL (1.40-6.50); Neutrophils % (auto) 75.5 %; Platelet Count 207 K/uL (130-400); RDW Coefficient of Variation 13.8 % (11.5-14.5); RDW Standard Deviation 44.6 fL (36.4-46.3); Red Blood Count 4.18 M/uL (4.20-5.40); White Blood Count 11.85 K/ul (4.8-10.8)
[2023-08-15 07:53] LABS: Albumin Globulin Ratio 1.1 (0.9-2); Albumin Level 3.2 gm/dl (3.4-5.0); BUN Creatinine Ratio 16.7 (10-20); Bilirubin Direct 0.2 mg/dl (0-0.2); Bilirubin,Total 0.6 mg/dl (0.2-1.0); Calcium 8.9 mg/dl (8.6-10.3); Creatinine Clr Calc Pharmacy 80.5 ml/min; Est GFR (African American) 105.9 ml/min; Est GFR (Non-African American) 91.4 ml/min; Globulin 2.8 gm/dl (2.5-4.0); Potassium 4.2 mmol/L (3.5-5.1)
--- NOTE | 2023-08-15 08:11 | Surgery Progress Note ---
Date of Service August 15, 2023 Assessment & Plan (1) Acute calculous cholecystitis: Plan: POD 1 Lap kayla /ERCP stent placement pt resting in bed Denies N/V, Fever, Chills, SOB, CP abd. port site , CDI dermabond, no s/s of infection noted VSS WBC 11 tolerating clears, advanced to fulls this AM. advance as tolerated Patient will need 2 weeks of PO antibiotics at d/c per GI Patient is stable for d/c from a general surgical standpoint F/U in office [address] Talley Call with questions/concerns (2) Choledocholithiasis: Admission and Anticipated Discharge Date Admission Date: August 13, 2023 Supervising Physician Co-Signing Physician Notes pnt S&E, agree with above. POD#1 ercp and robotic kayla. afvss, abd soft, appropriately ttp. inc w/o infx. labs reviewed. awaiting placement for acute rehab. okay to d/c from surgery standpoint once tolerated diet, pain controlled. surgery will follow. Subjective Denies CP, SOB, N/V, fever chills, Tolerating clears stated she was going to a [facility] at d/c Review of Systems Constitutional: no fever and no chills Ear, Nose, Mouth, Throat: no problem reported Respiratory: no dyspnea Cardiovascular: no chest pain Gastrointestinal: + abdominal pain; no nausea and no vomit ing Genitourinary: no problem reported Musculoskeletal: no muscle weakness Integumentary: no rash Neurologic: no confusion and no memory loss Psychiatric: no problem reported Physical Exam Physical Exam: alert oriented Constitutional: cooperative, comfortable and + overweight; no acute distress ENMT: external ear and nose normal, oropharynx normal Neck: trachea midline, no thyromegaly Respiratory: normal respiratory effort and able to speak in complete sentences; no respiratory distress Cardiovascular: Rate/Rhythm: regular rate Gastrointestinal (Abdomen): Inspection/Auscultation: + abdominal surgical incision (dermabond CDI); abdomen not distended Percussion/Palpation: + abdomen tender (RUQ RLQ) and abdomen soft; abdomen not rigid Musculoskeletal: no cyanosis or clubbing, extremities motor strength 5/5 Skin: no rashes, warm and dry Neurologic: not confused Psychiatric: A+Ox3, euthymic affect Results & Data Vital Signs (Past 12 Hours) Vital Signs Temp Pulse Resp BP Pulse Ox O2 Del Method 08/15/23 02:56 98.1 F 97 H 18 127/81 93 Room Air 08/14/23 21:55 97.9 F 105 H 18 120/76 91 Room Air PG Care Time/CCT Total # of Minutes Spent Total Time Spent with Patient: Total time spent is greater than 50% in coordination of care (as documented) at patient's floor/unit and/or counseling patient: Coding Level of Care Code 37196 Post Operative Follow-Up Diagnoses Acute calculous cholecystitis K80.00 Choledocholithiasis K80.50
[2023-08-15] MEDS ORDERED: LANTUS PER UNIT CHARGE SC SCH (09:00)
[2023-08-15] MEDS: INSULIN ASPART PER UNIT CHARGE SC SCH ×4 (09:28→20:41)
[2023-08-15] MEDS: metroNIDAZOLE 500 MG/100 ML BAG IV SCH ×3 (09:29→23:39)
[2023-08-15] MEDS: LACTATED RINGER'S 1,000 ML IV SCH (09:34)
--- NOTE | 2023-08-15 10:05 | Pharmacy Report ---
Pharmacy Glycemic Short Note 2 - Date of Service August 15, 2023 - Glycemic Short BSG Results (Last 24 hours): 08/14/23 08/14/23 08/14/23 14:54 17:36 20:16 Glucose POC Glucose 189 H 192 H 254 H 08/15/23 08/15/23 07:12 08:23 Glucose 226 H POC Glucose 208 H OUTPATIENT ANTIDIABETIC REGIMEN: * Invokana 100 mg PO daily * Lantus 16 units SC QAM * Humalog 3 units TIDM and sliding scale * Metformin 1 gm PO BID HbA1c = 7.8% (08/11/23) ASSESSMENT: 08/15/23: * POD #1 s/p ERCP/upper endoscopy * Diet advanced to clears yesterday and further advanced to full liquid diet today * Remains on ciprofloxacin and metronidazole * BSGs trended up yesterday postoperatively, will increase basal and tighten Novolog today 08/13/23: * Patient originally NPO after midnight, diet ordered at breakfast * Will be NPO after midnight tonight for planned ERCP + upper endoscopy on 08/14/23 * Patient received 10 units of insulin yesterday (8 units of which were basal) * Will order a conservative basal dose this evening, as patient will be NPO and had reasonable fasting BSG this morning 08/12/23: * 68 y/o F admitted for hyperglycemia last night. She has history of Type 2 diabetes managed on basal and bolus insulin as well as oral meds. * BSG above 300 mg/dl on admission. This trended down to below 150 mg/dl after 5 units of IV insulin. * Fasting BSG today was 106 mg/dl. Basal dose 8 units ordered this AM was given late close to lunch. * Pre-lunch BSG trended up to 247 mg/dl. An additional 5 units of basal insulin was ordered at lunch. Ongoing basal 12 units QAM ordered for tomorrow. * Nurse held basal and bolus insulins at lunch time per Dr. Rehman. * Lantus and Novolog parameters based on stress of 2. PLAN FOR INPATIENT GLYCEMIC CONTROL: * Hold outpatient oral diabetes medications * Basal insulin * Lantus 8 units SC daily * Bolus insulin * NovoLog per scale ACHS or Q6hrs while NPO * Goal Range: Low 110 mg/dL - High 140 mg/dL * Correction Factor: 25 mg/dL/unit * Nutritional / Prandial insulin per carb ratio of 1 unit per 8 grams CHO consumed
[2023-08-15] MEDS: metFORMIN HCL 500 MG TAB PO SCH ×2 (12:07→17:59)
--- NOTE | 2023-08-15 16:14 | Hospitalist Progress Note ---
Date of Service August 15, 2023 Assessment & Plan (1) Acute calculous cholecystitis: Plan: This actually appears to be acute on chronic cholecystitis associated with choledocholithiasis. MRCP was completed on August 13. She subsequently underwent EUS with ERCP on August 14 followed by robotic laparoscopic cholecystectomy. Postoperative day #1 general surgery consultation appreciated. She remains on intravenous Cipro and Flagyl, day 3. She is allergic to penicillin. Fortunately, her total bilirubin levels remain within normal limits. Diet has been advanced and IV fluids discontinued. (2) Hyperglycemia: Plan: Present on admission. Now improved. Metformin has been restarted and Lantus uptitrated. Sliding scale coverage as needed. (3) Heart palpitations: Plan: From sinus tachycardia present on admission. Now resolved. Troponin is within normal limits. No acute EKG changes. Telemetry. (4) Hypomagnesemia: Plan: Corrected with parenteral replacement. Serial labs (5) T2DM (type 2 diabetes mellitus): Plan: ADA diet. Metformin has been restarted. Basal insulin therapy. Sliding scale coverage as needed (6) Elevated transaminase level: Plan: Due to choledocholithiasis and cholecystitis. Expect gradual return to baseline. No evidence of obstructive jaundice. Serial labs. Statin therapy is currently on hold and will be restarted at discharge. (7) Hyperlipidemia: Plan: Statin therapy is temporarily on hold. Restarted discharge (8) Hypothyroidism: Plan: Stable. Continue levothyroxine. Normal TSH level Plan Planned discharge to [facility] tomorrow on August 16 Admission and Anticipated Discharge Date Admission Date: August 13, 2023 Subjective Alert and oriented. Doing well. Surgery entry noted. She remains on Cipro and Flagyl. Postoperative day #1 after ERCP and laparoscopic cholecystectomy. Diet has been advanced and IV fluids discontinued. Metformin has been restarted and Lantus dosage increased for better glucose control. Anticipate discharge to [facility] tomorrow, August 16 Review of Systems 2 Review of Systems: Constitutional-no fever or chills ENT-no blurred vision, no double vision, no epistaxis, no sore throat Respiratory-no cough, no wheezing, no shortness of breath Cardiac-no palpitations, no chest pain, no syncope GI-mild tenderness at surgical sites. No vomiting, diarrhea, melena, hematochezia -no urinary retention, no urinary incontinence, no dysuria, no hematuria Musculoskeletal-no joint pain, no muscle tenderness Skin-no bruising, no rashes, no pruritus Neuro-generalized weakness. No paresthesia Psych-no depression, no anxiety Physical Exam 2 Physical Exam: General-alert and oriented x3, no fevers, no chills HEENT-head atraumatic and normocephalic, pupils equal and reactive to light, extraocular muscles intact Neck-no lymphadenopathy or thyromegaly, trachea midline Chest-clear to auscultation and percussion. No rales, wheezing or rhonchi Cardiac-regular rate and rhythm, normal S1 and S2 Abdomen-normal bowel sounds, nontender, no hepatosplenomegaly Extremities-no cyanosis, clubbing, or edema Neuro-cranial nerves II through XII intact, motor and sensory function within normal limits, strength symmetrical with generalized weakness , no focal deficits Psych-normal affect, normal mood Results & Data Results & Data Vital Signs (Past 12 Hours) Vital Signs Temp Pulse Resp BP Pulse Ox O2 Del Method 08/15/23 11:54 36.6 C 88 18 126/82 96 Room Air 08/15/23 08:28 Room Air 08/15/23 08:04 36.4 C L 104 H 18 130/82 94 Room Air Laboratory Results 08/15/23 07:12 08/15/23 07:12 PG Care Time/CCT Total # of Minutes Spent Total Time Spent with Patient: Total time spent is greater than 50% in coordination of care (as documented) at patient's floor/unit and/or counseling patient: Coding Level of Care Code 99995 SUB INP/OBS CARE 3/50MIN Diagnoses Acute calculous cholecystitis K80.00 Hyperglycemia R73.9 Heart palpitations R00.2 Hypomagnesemia E83.42 T2DM (type 2 diabetes mellitus) E11.9 Elevated transaminase level R74.01 Hyperlipidemia E78.5 Hypothyroidism E03.9
[2023-08-15] MEDS: MELATONIN 3 MG TAB PO PRN (20:40)
[2023-08-15] MEDS: LANTUS PER UNIT CHARGE SC SCH (20:41)
[2023-08-15] MEDS: VORTIOXETINE HYDROBROMIDE 20MG PO SCH (20:42)
[2023-08-15] MEDS: MIRTAZAPINE TAB 15 MG TAB PO SCH (20:42)
[2023-08-15] MEDS: BREXPIPRAZOLE 1 MG TAB PO SCH (20:43)
[2023-08-16] MEDS: CIPROFLOXACIN / D5W 400 MG/200 ML BAG IV SCH (05:42)
[2023-08-16] MEDS: LEVOTHYROXINE SODIUM 112 MCG TABLET PO SCH (05:42)
[2023-08-16 06:19] LABS: Basophils # (auto) 0.04 K/uL (0.00-0.20); Basophils % (auto) 0.3 %; Eosinophils # (auto) 0.16 K/uL (0.00-0.50); Eosinophils % (auto) 1.3 %; Hematocrit (blood only) 36.8 % (37.0-47.0); Hemoglobin 11.9 g/dl (12.0-16.0); Immature Granulocytes # (auto) 0.08 K/uL (0.01-0.20); Immature Granulocytes % (auto) 0.7 %; Lymphocytes # (auto) 2.67 K/uL (1.20-3.40); Lymphocytes % (auto) 22.3 %; Mean Corpuscular Hemoglobin 29.2 pg (25.0-34.0); Mean Corpuscular Hgb Conc 32.3 g/dL (32.0-36.0); Mean Corpuscular Volume 90.4 fL (80.0-100.0); Mean Platelet Volume 10.2 fL (9.4-12.4); Monocytes # (auto) 0.83 K/uL (0.11-0.59); Monocytes % (auto) 6.9 %; Neutrophils % (auto) 68.5 %; Platelet Count 205 K/uL (130-400); RDW Coefficient of Variation 14.2 % (11.5-14.5); RDW Standard Deviation 46.6 fL (36.4-46.3); Red Blood Count 4.07 M/uL (4.20-5.40); White Blood Count 11.98 K/ul (4.8-10.8)
[2023-08-16 06:21] LABS: Albumin Globulin Ratio 1.1 (0.9-2); Albumin Level 3.1 gm/dl (3.4-5.0); BUN Creatinine Ratio 20.7 (10-20); Bilirubin,Total 0.5 mg/dl (0.2-1.0); Calcium 8.9 mg/dl (8.6-10.3); Creatinine Clr Calc Pharmacy 91.6 ml/min; Est GFR (African American) 110.5 ml/min; Est GFR (Non-African American) 95.4 ml/min; Globulin 2.7 gm/dl (2.5-4.0); Potassium 3.5 mmol/L (3.5-5.1); Total Protein 5.8 gm/dl (6.0-8.3)
[2023-08-16] MEDS: metroNIDAZOLE 500 MG/100 ML BAG IV SCH (08:04)
[2023-08-16] MEDS: metFORMIN HCL 500 MG TAB PO SCH (09:19)
[2023-08-16] MEDS: INSULIN ASPART PER UNIT CHARGE SC SCH ×2 (09:19→12:56)
[2023-08-16] MEDS: LANTUS PER UNIT CHARGE SC SCH (09:19)
--- NOTE | 2023-08-16 10:49 | Surgery Progress Note ---
Date of Service August 16, 2023 Assessment & Plan (1) Acute calculous cholecystitis: Plan: POD 2 Lap kayla /ERCP stent placement pt resting in bed Denies N/V, Fever, Chills, SOB, CP abd. port site , CDI dermabond, no s/s of infection noted VSS tolerating diet Patient will need 2 weeks of PO antibiotics at d/c per GI Patient is stable for d/c from a general surgical standpoint F/U in office [address] Talley Call with questions/concerns (2) Choledocholithiasis: Admission and Anticipated Discharge Date Admission Date: August 13, 2023 Supervising Physician Co-Signing Physician Notes pnt S&E, agree with above. POD#2 ercp and robotic kayla. afvss, abd soft, appropriately ttp. inc w/o infx. labs reviewed. Plan for discharge to [facility] to do. okay to d/c from surgery standpoint. Wound care instructions, activity striction's, and return precautions given. Follow-up in [facility] 2 weeks Subjective expected abd soreness tolerating diet Review of Systems Constitutional: no fever and no chills Ear, Nose, Mouth, Throat: no problem reported Respiratory: no dyspnea Cardiovascular: no chest pain Gastrointestinal: + abdominal pain; no nausea and no vomit ing Genitourinary: no problem reported Musculoskeletal: no muscle weakness Integumentary: no rash Neurologic: no confusion and no memory loss Psychiatric: no problem reported Physical Exam Physical Exam: alert oriented Constitutional: cooperative, comfortable and + overweight; no acute distress ENMT: external ear and nose normal, oropharynx normal Neck: trachea midline, no thyromegaly Respiratory: normal respiratory effort and able to speak in complete sentences; no respiratory distress Cardiovascular: Rate/Rhythm: regular rate Gastrointestinal (Abdomen): Inspection/Auscultation: + abdominal surgical incision (dermabond CDI); abdomen not distended Percussion/Palpation: + abdomen tender (RUQ RLQ), + guarding and abdomen soft; abdomen not rigid Musculoskeletal: no cyanosis or clubbing, extremities motor strength 5/5 Skin: no rashes, warm and dry Neurologic: not confused Psychiatric: A+Ox3, euthymic affect Results & Data Vital Signs (Past 12 Hours) Vital Signs Temp Pulse Pulse Resp BP BP Pulse Ox 08/16/23 07:49 98.2 F 99 H 18 132/83 96 08/16/23 07:23 106 H 08/16/23 04:00 97.9 F 101 H 18 115/75 94 08/15/23 23:40 98.2 F 110 H 18 124/73 93 08/15/23 23:00 118 H O2 Del Method 08/16/23 07:49 Room Air 08/16/23 07:23 08/16/23 04:00 Room Air 08/15/23 23:40 Room Air 08/15/23 23:00 PG Care Time/CCT Total # of Minutes Spent Total Time Spent with Patient: Total time spent is greater than 50% in coordination of care (as documented) at patient's floor/unit and/or counseling patient: Coding Level of Care Code 50462 Post Operative Follow-Up Diagnoses Acute calculous cholecystitis K80.00 Choledocholithiasis K80.50
--- NOTE | 2023-08-16 12:10 | Discharge Summary ---
Date of Service August 16, 2023 Admission HPI Per Admitting Provider Kourtney is a 68-year-old female with PMH of T2DM, GERD, CVD, HLD, depression, vitamin D deficiency, and hypothyroidism. She presented for chest palpitations and hyperglycemia on 08/11. She reports that she was hypoglycemic at BSG 66 before she ate in the morning, and then her glucose went gia high afterwards. Symptoms developed around 1000. Patient reports that she only ate a banana and cereal this morning. She normally takes her morning Lantus 16u prior to eating; then she reportedly took her 6 units of short acting after eating. She has had chest palpitations and heart racing in the past. No at home oxygen use. No recent rashes or tick bites. No sick contacts. She denies alcohol, tobacco, and recreational drug use. She endorses a worsening headache since this morning that has been constant. She rates it 6/10. Headache is located centrally on the forehead, and does not wrap around her head. She took all of her regular morning medications, and reports no recent changes in medications. She notes that she would like to return to [facility] with [facility]. Patient is mildly tachycardic at 107 bpm at time of admission; vitals otherwise stable. ED course: NSS 1000 mL IV Magnesium sulfate 1 g IV Regular insulin 5 units IV ROS: Patient endorses heart racing, chest palpitations, GIBBS, and hand / foot neuropathy (chronic) Patient denies fever, sweats, chest pain, SOB, abd pain, N/V/D, burning with urination, dysuria, or blood in the urine or stool. Principal Diagnosis Acute on chronic cholecystitis, choledocholithiasis, hypomagnesemia Discharge Exam General-alert and oriented x3, no fevers, no chills HEENT-head atraumatic and normocephalic, pupils equal and reactive to light, extraocular muscles intact Neck-no lymphadenopathy or thyromegaly, trachea midline Chest-clear to auscultation and percussion. No rales, wheezing or rhonchi Cardiac-regular rate and rhythm, normal S1 and S2 Abdomen-normal bowel sounds, nontender, no hepatosplenomegaly Extremities-no cyanosis, clubbing, or edema Neuro-cranial nerves II through XII intact, motor and sensory function within normal limits, strength symmetrical with generalized weakness , no focal deficits Psych-normal affect, normal mood Discharge Data Allergies Allergy/AdvReac Type Severity Reaction Status Date / Time cisapride Allergy Intermediate Hives Verified 08/11/23 20:39 doxycycline Allergy Intermediate Rash Verified 08/11/23 20:39 gadobutrol [From Gadavist] Allergy Intermediate Hives Verified 08/11/23 20:39 lansoprazole Allergy Intermediate Hives Verified 08/11/23 20:39 Penicillins Allergy Intermediate Rash Verified 08/11/23 20:39 tetracycline Allergy Intermediate Rash Verified 08/11/23 20:39 Consultations 08/11/23 21:00 ED Decision to Admit Stat 08/12/23 15:22 Consult Gastroenterology Routine 08/13/23 09:04 Consult General Surgery Routine Procedures Performed Operation Date: 08/14/23 12:10 Actual Procedures p Endoscopic retrograde cholangiopancreatography(Not Applicable) - DO nguyen Bailey Robotic Laparoscopic Cholecystectomy - Stephen Talley DO, FACS Ordered Studies 08/12/23 09:29 US gallbladder Urgent 08/13/23 08:11 MR MRCP Stat 08/14/23 07:00 FL ERCP biliary ductal Routine Hospital Course (1) Acute calculous cholecystitis: This actually appears to be acute on chronic cholecystitis associated with choledocholithiasis. MRCP was completed on August 13. She subsequently underwent EUS with ERCP on August 14, day followed by robotic laparoscopic cholecystectomy. Postoperative day #2. General surgery consultation appreciated. Treated while hospitalized with intravenous Cipro and Flagyl, day 4. These were discontinued today, August 16. Fortunately, her total bilirubin levels remain within normal limits. Diet has been advanced and IV fluids discontinued. (2) Hyperglycemia: Present on admission. Now improved. Metformin has been restarted and Lantus uptitrated. Sliding scale coverage as needed. (3) Heart palpitations: From sinus tachycardia present on admission. Now resolved. Troponin is within normal limits. No acute EKG changes. Telemetry. (4) Hypomagnesemia: Corrected with parenteral replacement. Serial labs (5) T2DM (type 2 diabetes mellitus): ADA diet. Metformin has been restarted. Basal insulin therapy. Sliding scale coverage as needed (6) Elevated transaminase level: Due to choledocholithiasis and cholecystitis. Expect gradual return to [facility] [place] [facility]. No evidence of obstructive jaundice. Serial labs. Statin therapy is currently on hold and will be restarted at discharge. (7) Hyperlipidemia: Statin therapy is temporarily on hold. Restarted discharge (8) Hypothyroidism: Stable. Continue levothyroxine. Normal TSH level Plan discharge to [place] [facility] today, August 16 Total Time Total Time Spent Total Time Spent (In Minutes): 45 minutes Discharge Plan Discharge Items Patient Disposition: Transfer Half-Way Fac Reason For Visit: HYPERGLYCEMIA, CHEST PALPITATIONS Discharge Diagnosis: Acute on chronic cholecystitis, choledocholithiasis, hypomagnesemia, hyperglycemia present on admission, palpitations Activity: As commented below Lifting: No more than 10 pounds Bathing Comment: you can shower. No pool or baths for 2 weeks Exercise/Sports: Wait until after follow-up appointment Driving/Machine Use: no driving if taking narcotic pain medication Non-emergency contact: Surgeon Call non-emergency contact if: you have any medication questions, your symptoms worsen, your pain is unusual for you, your temperature is above 101, your wound has increased redness, your wound has increased drainage and your wound pain has increased Follow-up/Referrals: Stephen Talley DO, FACS [Physician] - (call office for a follow up in 2 weeks ) Savannah Zhou DO [Physician] - Andry Kerr MD [Primary Care Provider] - Diet: Carb Consistent or DM2 Addtl Attending Provider Instructions: You have surgical glue called dermabond on your surgical site incisions. You may shower with this on. This will tend to come off within a couple of weeks. Do not pick at it. Pending Studies at Discharge: Yes Studies:: surgical pathology Stand-Alone Forms: My [facility] Skilled Items Patient informed of condition?: Yes DNR: No Discharge Level of Care: Skilled Communicable Disease: No Discharge Prognosis: Stable Lines: None Urinary Catheter: No Medications and DC Order Prescriptions: Continued (DME) pen needle, diabetic [BD Ultra-Fine Flores Pen Needle] 32 gauge x 5/32" needle See Rx Instructions miscellaneous .MEDSUPPLY Qty: 100 3RF Rx Instructions: Inject insulin once daily insulin glargine [Lantus Solostar U-100 Insulin] 100 unit/mL (3 mL) insulin pen 16 unit subcut QAM Qty: 15 3RF metformin 1,000 mg tablet 1,000 mg PO BID Qty: 180 2RF cholecalciferol (vitamin D3) 125 mcg (5,000 unit) capsule 5,000 unit PO DAILY Qty: 30 5RF atorvastatin 20 mg tablet 20 mg PO QPM Qty: 90 2RF Invokana 100 mg tablet 100 mg PO QAM Qty: 30 1RF (DME) FreeStyle Jose Francisco 14 Day Sensor Kit See Rx Instructions .Route Rx Instructions: As directed levothyroxine 112 mcg tablet 112 mcg PO DAILYBB Qty: 90 1RF aspirin [Ecotrin Low Strength] 81 mg Tablet,Delayed Release (Dr/Ec) 81 mg PO QAM Qty: 30 0RF Trintellix 20 mg tablet 20 mg PO QPM mirtazapine 30 mg tablet 30 mg PO HS insulin lispro [Humalog KwikPen Insulin] 100 unit/mL insulin pen 3 unit SUBCUT TIDWMEAL PRN (Reason: DEPENDS ON BSG) Rx Instructions: PLUS SLIDING SCALE PER PT. Rexulti 1 mg tablet 1 mg PO HS Discharge Orders: Discharge Order (Routine); Ordered 08/16/23 Ordered By: Eben Mcintyre/Other Patient Handouts: High Blood Sugar (Hyperglycemia), Hypoglycemia (Low Blood Sugar), Managing Type 2 Diabetes Admission Data Admit Date/Time: 08/13/23 08:59 Attending Provider: Eben Sen Admit Provider: Rajat Hernandez Primary Care Provider: Andry Kerr Providers: [facility]; Rajat Hernandez; Andres Parikh Jr; Gerri Junior; Jamaal Rios; Joe Cook; Randal Garrison; Stephen Talley; Tahmina Reed; Trent Ramirez; Isacc Carter; Cassie Duron; Alex Riggs Coding Level of Care Code 20618 INP/OBS DISCH >30 MIN Diagnoses Acute calculous cholecystitis K80.00 Hyperglycemia R73.9 Heart palpitations R00.2 Hypomagnesemia E83.42 T2DM (type 2 diabetes mellitus) E11.9 Elevated transaminase level R74.01 Hyperlipidemia E78.5 Hypothyroidism E03.9
== END 2023-08-16 16:06 | DRG 419 ==
LOC: ED 16:46 → EDINP 16:46 → SUATTDRO 21:51 → 2N 22:30

== ENCOUNTER 2024-10-15 15:28 | Observation (INO) ==
--- NOTE | 2024-10-15 15:57 | Emergency Department Note ---
History of Present Illness General Chief complaint: Vertigo Stated complaint: DIZZY, SICK TO STOMACH Time Seen by Provider: 10/15/24 15:52 History of Present Illness This is a 69-year-old female that presents to the emergency department via private vehicle accompanied by significant other with complaints of "dizziness, sick to stomach". Patient notes the dizziness began this morning. She describes the symptoms as a room spinning sensation. She notes she also does not "feel right". She does have nausea. No vomiting. No recent illness or fevers. No ear pain. No speech trouble or weakness but significant other at bedside notes it seems that she is having a hard time expressing herself today. No chest pain or shortness of breath. She notes her blood sugar today has been appropriate and has been taking her diabetes medication as prescribed. Home Medications Medication Instructions Recorded Confirmed Type mirtazapine 30 mg tablet 30 mg PO HS 05/04/18 10/15/24 History aspirin 81 mg tablet,delayed 81 mg PO QAM #30 tabs 03/02/19 10/15/24 Rx release (Ecotrin Low Strength) vortioxetine 20 mg tablet 20 mg PO QPM 06/06/19 10/15/24 History (Trintellix) flash glucose sensor (FreeStyle 06/16/21 10/15/24 History Jose Francisco 14 Day Sensor kit) pen needle, diabetic 32 gauge x #100 ea 09/12/23 10/15/24 Rx 5/32" (BD Ultra-Fine Flores Pen Needle) brexpiprazole 0.5 mg tablet 0.5 mg PO HS 11/06/23 10/15/24 History (Rexulti) metformin 1,000 mg tablet 1,000 mg PO BID #180 tabs 02/21/24 10/15/24 Rx acetone (urine) test (Ketostix #25 ea 03/06/24 10/15/24 Rx strips) atorvastatin 20 mg tablet 20 mg PO QPM #90 tabs 04/22/24 10/15/24 Rx canagliflozin 100 mg tablet 100 mg PO QAM #30 tabs 06/09/24 10/15/24 Rx (Invokana) levothyroxine 112 mcg tablet 112 mcg PO DAILYBB #90 tabs 06/30/24 10/15/24 Rx cholecalciferol (vitamin D3) 25 25 mcg PO DAILY #30 caps 07/22/24 10/15/24 Rx mcg (1,000 unit) capsule sitagliptin phosphate 50 mg tablet 50 mg PO DAILY #30 tabs 07/22/24 10/15/24 Rx (Januvia) insulin glargine 100 unit/mL (3 16 unit (0.16 mL) subcut QAM #15 mL 07/25/24 10/15/24 Rx mL) subcutaneous pen (Lantus Solostar U-100 Insulin) insulin lispro 100 unit/mL 6 unit (0.06 mL) subcut BID #15 mL 07/25/24 10/15/24 Rx subcutaneous pen (Humalog KwikPen (U-100) Insulin) ondansetron HCl 4 mg tablet 4 mg PO UD PRN Nausea 10/15/24 10/15/24 History Allergies Allergy/AdvReac Type Severity Reaction Status Date / Time cisapride Allergy Intermediate Hives Verified 07/22/24 13:17 doxycycline Allergy Intermediate Rash Verified 07/22/24 13:17 gadobutrol [From Gadavist] Allergy Intermediate Hives Verified 07/22/24 13:17 lansoprazole Allergy Intermediate Hives Verified 07/22/24 13:17 Penicillins Allergy Intermediate Rash Verified 07/22/24 13:17 tetracycline Allergy Intermediate Rash Verified 07/22/24 13:17 Past Med/Surg History Problem List (Updated 10/15/24 @ 19:15 by Marcus Cadet PA-C) Diabetes H/O: stroke Stroke-like symptoms Expressive aphasia Sinus tachycardia (Acute) Nausea (Acute) Dizziness (Acute) Acute bilateral knee pain (Acute) Medical non-compliance Choledocholithiasis Acute calculous cholecystitis Hyperglycemia (Acute) Vitamin D deficiency Failure to thrive Abdominal pain, acute, left upper quadrant (Acute) Norovirus Malaise DVT prophylaxis COVID-19 (Acute) Hypercalcemia (Acute) Cerebrovascular disease Postsurgical hypothyroidism (Chronic) GERD (gastroesophageal reflux disease) Medical History Sinus tachycardia Hyperglycemia due to type 2 diabetes mellitus Restless legs Atrial tachycardia Elevated lactic acid level Hypothyroidism Elevated lactic acid level Hyperglycemia Chest pain Hyperglycemia Abdominal pain Lactic acidemia Abdominal pain Diarrhea Hypoglycemia History of anemia Gout Cervical dysplasia Diabetic peripheral neuropathy H/O: stroke Cerebellar infarct Acute CVA (cerebrovascular accident) Altered mental status Vertigo Hypothyroidism Sensory ataxia Polyneuropathy Major depressive disorder Lumbosacral radiculopathy Hyperlipidemia Encounter for routine gynecological examination Diabetic peripheral neuropathy 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 CVA (cerebral vascular accident) Chronic skin ulcer of right ear Depression with anxiety T2DM (type 2 diabetes mellitus) Weakness TIA (transient ischemic attack) Neurological deficit present Hyperglycemia Dizziness Wound, open, ear, external with complication Suicide attempt Major depressive disorder, recurrent episode, severe with anxious distress Lumbar stenosis with neurogenic claudication Lower extremity weakness Intractable low back pain Hypotension Hypokalemia Hypertension HNP (herniated nucleus pulposus), lumbar Fecal impaction Dyslipidemia DKA (diabetic ketoacidoses) Constipation Chest pain Anxiety Altered mental status Acute gastritis Diabetes Surgical History Hx laparoscopic cholecystectomy (08/16/23) Robotic Laparoscopic Cholecystectomy - Stephen Talley, DO, FACS History of total abdominal hysterectomy H/O laparoscopy Status post hysteroscopic ablation of endometrium H/O dilation and curettage History of dental surgery History of colposcopy with cervical biopsy Previous back surgery History of tonsillectomy Status post lumbar spine surgery for decompression of spinal cord H/O cardiac catheterization History of hysterectomy Family History Mother , in her early 70s of some sort of cancer (patient not clear if it was breast cancer) Breast cancer Diabetes Grandmother Breast cancer Grandmother Breast cancer Unknown Colon cancer Father , Diet it age 78 of a myelodysplastic syndrome. He also had Hscvmon-Xvfaz-Xoefn disease. Myelodysplasia (myelodysplastic syndrome) Qindhdn-Qxlzw-Bpujf disease Heart disease Brother Mhejhmi-Ituui-Batsn disease Other No pertinent family history in first degree relatives Social History Smoking Status: Never smoker Hx Alcohol Use: No Hx Substance Use: No Preferred Language: Hebrew Communication Ability: Effective Visual Impairment: No Limitations Patient Safety Sitter Required: No Beliefs That Will Affect Care: None marital status: significant other Current Living Situation: Spouse Current Living Situation Comment: lives w/ boyfriend current occupational status: disabled current occupation: Patient used to work at [employer] for 23 years and then [employer] How many Children do You have: 2 other: Retired on disability from her back 3 years ago Feels Safe at Home: Yes Assistive Devices: Cane and Walker Review of Systems A total of 10 systems reviewed and were otherwise negative Physical Exam Vital Signs Vital Signs - 24 hr 10/15/24 15:31 10/15/24 15:43 10/15/24 15:50 Temperature 36.1 C L Temperature Source Temporal Artery Scan Pulse Rate 117 H 116 H Pulse Rate from SpO2 Sensor Pulse Rhythm Regular Pulse Strength Normal Respiratory Rate 18 Respiratory Effort / Characteristics Non-Labored Spontaneous Respiratory Depth Normal Respiratory Pattern Regular Blood Pressure 146/86 H Blood Pressure Mean 106 Blood Pressure Position Sitting Pulse Oximetry 96 95 Oxygen Delivery Method Room Air Room Air Sepsis Recent Fever Within 48 Hours No Sepsis New/Unexplained Change in Mental Status No Sepsis Action Taken by Nursing No Action Required 10/15/24 15:50 10/15/24 16:30 10/15/24 18:00 Temperature Temperature Source Pulse Rate 106 H 100 H Pulse Rate from SpO2 Sensor Pulse Rhythm Pulse Strength Respiratory Rate 20 15 Respiratory Effort / Characteristics Respiratory Depth Respiratory Pattern Blood Pressure 149/93 H 133/89 Blood Pressure Mean 114 103 Blood Pressure Position Pulse Oximetry 95 95 96 Oxygen Delivery Method Room Air Room Air Room Air Sepsis Recent Fever Within 48 Hours Sepsis New/Unexplained Change in Mental Status Sepsis Action Taken by Nursing 10/15/24 18:27 10/15/24 18:30 10/15/24 18:30 Temperature Temperature Source Pulse Rate 108 H Pulse Rate from SpO2 Sensor 107 H Pulse Rhythm Pulse Strength Respiratory Rate 23 Respiratory Effort / Characteristics Respiratory Depth Respiratory Pattern Blood Pressure 139/91 139/91 Blood Pressure Mean 103 103 Blood Pressure Position Pulse Oximetry 94 Oxygen Delivery Method Sepsis Recent Fever Within 48 Hours Sepsis New/Unexplained Change in Mental Status Sepsis Action Taken by Nursing 10/15/24 18:30 10/15/24 18:30 10/15/24 18:30 Temperature Temperature Source Pulse Rate Pulse Rate from SpO2 Sensor Pulse Rhythm Pulse Strength Respiratory Rate Respiratory Effort / Characteristics Respiratory Depth Respiratory Pattern Blood Pressure 139/91 139/91 139/91 Blood Pressure Mean 103 103 103 Blood Pressure Position Pulse Oximetry Oxygen Delivery Method Sepsis Recent Fever Within 48 Hours Sepsis New/Unexplained Change in Mental Status Sepsis Action Taken by Nursing 10/15/24 18:30 10/15/24 19:00 Temperature Temperature Source Pulse Rate 103 H 106 H Pulse Rate from SpO2 Sensor Pulse Rhythm Pulse Strength Respiratory Rate 24 26 H Respiratory Effort / Characteristics Respiratory Depth Respiratory Pattern Blood Pressure 139/91 154/98 H Blood Pressure Mean 103 116 Blood Pressure Position Pulse Oximetry 94 94 Oxygen Delivery Method Room Air Room Air Sepsis Recent Fever Within 48 Hours Sepsis New/Unexplained Change in Mental Status Sepsis Action Taken by Nursing VITAL SIGNS - Vital signs and nursing notes were reviewed. Hypertensive, tachycardic, otherwise stable and afebrile. GENERAL - 69-year-old female appearing her stated age who is in no acute distress. Communicates well with provider and answers questions appropriately. SKIN - Without rashes. HEAD - NC/AT. EYES - PERRL with EOMI bilaterally. Sclera anicteric. EARS - No deformities of external structures noted on gross examination bilaterally. NOSE - Midline and without cyanosis. No epistaxis or purulent drainage noted. MOUTH/OROPHARYNX - Without perioral cyanosis. Buccal mucosa pink and moist and without leukoplakia. Tongue midline with equal elevation of palate bilaterally. No tonsillar hypertrophy, erythema, or exudates noted. Good dentition noted. NECK - Neck with FROM. Supple to palpation. No lymphadenopathy noted. No nuchal rigidity. LUNGS - Chest wall symmetric without accessory muscle use, intercostals retractions, or central cyanosis. Normal vesicular breath sounds CTA B/L. No wheezes, rales, or rhonchi appreciated. CARDIAC - RRR ABDOMEN - Abdominal contour normal without pulsations or visible masses. BS normoactive all four quadrants. No tenderness, palpable masses, hepatosplenomegaly, or ascites noted. EXTREMITIES - No clubbing or peripheral cyanosis. +5/5 strength noted in UE/LE bilaterally. NEUROLOGIC - Cranial nerves II through XII grossly intact. PSYCH -alert, oriented and pleasant on exam Course Administered Medications Lorazepam (Lorazepam 0.5 Mg Tab) 0.5 mg PO BID PRN PRN Reason: Anxiety Stop: 11/14/24 20:59 Last Admin: 10/15/24 19:31 Dose: 0.5 mg Documented By: ETHAN Discontinued Medications Aspirin (Aspirin Chew 324 Mg) 324 mg PO NOW STA Stop: 10/15/24 18:52 Last Admin: 10/15/24 19:06 Dose: 324 mg Documented By: ETHAN Sodium Chloride (Nss) 1,000 mls @ 500 mls/hr IV .Q2H ONE Stop: 10/15/24 18:07 Last Infusion: 10/15/24 18:02 Dose: 500 mls/hr Documented By: Infusion: 10/15/24 17:18 Dose: 0 mls/hr Documented By: Admin: 10/15/24 16:58 Dose: 500 mls/hr Documented By: ETHAN Ioversol (Optiray 320 125ml) 115 ml IV ONCE ONE Stop: 10/15/24 17:31 Last Admin: 10/15/24 17:31 Dose: 115 ml Documented By: NAHUM Ondansetron HCl (Ondansetron Inj 2 Mg/Ml 2 Ml Vial) 4 mg IV NOW STA Stop: 10/15/24 16:51 Last Admin: 10/15/24 16:58 Dose: 4 mg Documented By: ETHAN Medical Decision Making Laboratory Data 10/15/24 15:47 10/15/24 15:47 Lab Results 10/15/24 10/15/24 10/15/24 Range/Units 15:42 15:47 16:17 WBC 8.35 (4.8-10.8) K/ul RBC 4.97 (4.20-5.40) M/uL Hgb 14.6 (12.0-16.0) g/dl Hct 43.7 (37.0-47.0) % MCV 87.9 (80.0-100.0) fL MCH 29.4 (25.0-34.0) pg MCHC 33.4 (32.0-36.0) g/dL RDW Std Deviation 43.5 (36.4-46.3) fL RDW Coeff of Maris 13.4 (11.5-14.5) % Plt Count 269 (130-400) K/uL MPV 9.9 (9.4-12.4) fL PT 10.7 (9.0-12.0) Seconds INR 1.0 (0.9-1.1) APTT 25 (21-31) Seconds PTT Ratio 0.9 Sodium 141 (136-145) mmol/L Potassium 4.0 (3.5-5.1) mmol/L Chloride 104 (98-107) mmol/L Carbon Dioxide 28 (21-32) mmol/L Anion Gap 9 (3-11) BUN 15 (6-23) mg/dl Creatinine 0.70 (0.6-1.2) mg/dl Est Cr Clr Drug Dosing 76.5 ml/min eGFR 94.15 BUN/Creatinine Ratio 21.4 H (10-20) Glucose 225 H (70-99(Fasting)) mg/dl POC Glucose 212 H (70-99) mg/dl Calcium 10.8 H (8.6-10.3) mg/dl Magnesium 1.7 (1.7-2.4) mg/dl Total Bilirubin 0.6 (0.2-1.0) mg/dl AST 19 (13-39) U/L ALT 14 (7-52) U/L Alkaline Phosphatase 64 (34-104) U/L Troponin I High Sens < 2.3 (0-14) pg/ml Total Protein 7.8 (6.0-8.3) gm/dl Albumin 4.4 (3.4-5.0) gm/dl Globulin 3.4 (2.5-4.0) gm/dl Albumin/Globulin Ratio 1.3 (0.9-2) Lipase 46 (11-82) U/L Procalcitonin < 0.02 (0-0.5) ng/ml TSH 0.153 L (0.300-4.500) uIu/ml Free T4 1.20 (0.61-1.60) ng/dl Urine Color Yellow Urine Appearance Clear (Clear) Urine pH 5.5 (4.5-7.5) Ur Specific Trez[place] 1.040 H (1.000-1.030) Urine Protein Negative (Negative) Urine Glucose (UA) 3+ H (Negative) Urine Ketones Negative (Negative) Urine Blood Negative (Negative) Urine Nitrite Negative (Negative) Urine Bilirubin Negative (Negative) Urine Urobilinogen Negative (Negative) Ur Leukocyte Esterase Negative (Negative) Adenovirus (PCR) (NotDetected) B. pertussis DNA (PCR) (NotDetected) B.parapertussis DNA PCR (NotDetected) C. pneumoniae DNA (PCR) (NotDetected) Coronavirus OC43 (PCR) (NotDetected) Coronavirus HKU1 (PCR) (NotDetected) Coronavirus 229E (PCR) (NotDetected) SARS-CoV-2 (PCR) (NotDetected) Coronavirus NL63 (PCR) (NotDetected) Human Metapneumovir PCR (NotDetected) Influenza Type A (PCR) (NotDetected) Influenza Type B (PCR) (NotDetected) M. pneumoniae (PCR) (NotDetected) Parainfluenza 1 (PCR) (NotDetected) Parainfluenza 2 (PCR) (NotDetected) Parainfluenza 3 (PCR) (NotDetected) Parainfluenza 4 (PCR) (NotDetected) RSV (PCR) (NotDetected) Entero/Rhino (PCR) (NotDetected) 10/15/24 Range/Units 18:25 WBC (4.8-10.8) K/ul RBC (4.20-5.40) M/uL Hgb (12.0-16.0) g/dl Hct (37.0-47.0) % MCV (80.0-100.0) fL MCH (25.0-34.0) pg MCHC (32.0-36.0) g/dL RDW Std Deviation (36.4-46.3) fL RDW Coeff of Maris (11.5-14.5) % Plt Count (130-400) K/uL MPV (9.4-12.4) fL PT (9.0-12.0) Seconds INR (0.9-1.1) APTT (21-31) Seconds PTT Ratio Sodium (136-145) mmol/L Potassium (3.5-5.1) mmol/L Chloride (98-107) mmol/L Carbon Dioxide (21-32) mmol/L Anion Gap (3-11) BUN (6-23) mg/dl Creatinine (0.6-1.2) mg/dl Est Cr Clr Drug Dosing ml/min eGFR BUN/Creatinine Ratio (10-20) Glucose (70-99(Fasting)) mg/dl POC Glucose (70-99) mg/dl Calcium (8.6-10.3) mg/dl Magnesium (1.7-2.4) mg/dl Total Bilirubin (0.2-1.0) mg/dl AST (13-39) U/L ALT (7-52) U/L Alkaline Phosphatase (34-104) U/L Troponin I High Sens (0-14) pg/ml Total Protein (6.0-8.3) gm/dl Albumin (3.4-5.0) gm/dl Globulin (2.5-4.0) gm/dl Albumin/Globulin Ratio (0.9-2) Lipase (11-82) U/L Procalcitonin (0-0.5) ng/ml TSH (0.300-4.500) uIu/ml Free T4 (0.61-1.60) ng/dl Urine Color Urine Appearance (Clear) Urine pH (4.5-7.5) Ur Specific Trez[place] (1.000-1.030) Urine Protein (Negative) Urine Glucose (UA) (Negative) Urine Ketones (Negative) Urine Blood (Negative) Urine Nitrite (Negative) Urine Bilirubin (Negative) Urine Urobilinogen (Negative) Ur Leukocyte Esterase (Negative) Adenovirus (PCR) Not Detected (NotDetected) B. pertussis DNA (PCR) Not Detected (NotDetected) B.parapertussis DNA PCR Not Detected (NotDetected) C. pneumoniae DNA (PCR) Not Detected (NotDetected) Coronavirus OC43 (PCR) Not Detected (NotDetected) Coronavirus HKU1 (PCR) Not Detected (NotDetected) Coronavirus 229E (PCR) Not Detected (NotDetected) SARS-CoV-2 (PCR) Not Detected (NotDetected) Coronavirus NL63 (PCR) Not Detected (NotDetected) Human Metapneumovir PCR Not Detected (NotDetected) Influenza Type A (PCR) Not Detected (NotDetected) Influenza Type B (PCR) Not Detected (NotDetected) M. pneumoniae (PCR) Not Detected (NotDetected) Parainfluenza 1 (PCR) Not Detected (NotDetected) Parainfluenza 2 (PCR) Not Detected (NotDetected) Parainfluenza 3 (PCR) Not Detected (NotDetected) Parainfluenza 4 (PCR) Not Detected (NotDetected) RSV (PCR) Not Detected (NotDetected) Entero/Rhino (PCR) Not Detected (NotDetected) Imaging Data Radiologist's Impression: Chest CTA 10/15/24 16:08 INDICATION: Difficulty breathing. COMPARISON: None available. TECHNIQUE: Axial CT images of the chest were obtained following IV contrast administration, PE protocol. Multiplanar reformatted images were reviewed. FINDINGS: No filling defect in the pulmonary arteries seen to suggest pulmonary embolism. Ascending aortic ectasia measuring up to 4.3 cm maximum dimension. Negative for dissection. The heart is mildly enlarged. No pericardial or pleural effusion. No pneumothorax. No focal pulmonary consolidation. No acute osseous abnormality evident. Visualized upper abdominal structures appear unremarkable. IMPRESSION: 1. Negative for pulmonary embolism. 2. Ascending aortic ectasia measuring up to 4.3 cm maximum dimension. Electronically signed by Tyrese Baker 10-15-2024 6:03 PM Head CTA 10/15/24 16:08 INDICATION: Dizzy TECHNIQUE: Noncontrast of the CT head performed from the skull base to the vertex with coronal reformats. This was followed by contrast CT angiogram head and neck from the aortic arch through the vertex. Sagittal, coronal, axial, and rotational postprocessed maximum intensity projection reconstruction images were performed. COMPARISON: None. FINDINGS: CTA: NECK: Aortic arch: Normal caliber without aneurysm, dissection, or stenosis. Vertebral arteries: Normal caliber without dissection or stenosis. Right carotid artery: There is no significant stenosis. Left carotid artery: There is no significant stenosis. Head: Intracranial internal carotid arteries: Normal caliber without significant stenosis or aneurysm. Middle cerebral arteries: Normal caliber without significant stenosis or aneurysm. Anterior cerebral arteries: Normal caliber without significant stenosis or aneurysm. Basilar artery: Normal caliber without significant stenosis or aneurysm. Posterior cerebral arteries: Normal caliber without significant stenosis or aneurysm. Noncontrast Head: No evidence of acute intracranial hemorrhage, mass, or hydrocephalus. Mild chronic ischemic white matter changes. Mild cortical atrophy. IMPRESSION: No large vessel occlusion/stenosis or aneurysm in the head or neck. Electronically signed by Tyrese Baker 10-15-2024 6:03 PM Neck CTA 10/15/24 16:08 INDICATION: Dizzy TECHNIQUE: Noncontrast of the CT head performed from the skull base to the vertex with coronal reformats. This was followed by contrast CT angiogram head and neck from the aortic arch through the vertex. Sagittal, coronal, axial, and rotational postprocessed maximum intensity projection reconstruction images were performed. COMPARISON: None. FINDINGS: CTA: NECK: Aortic arch: Normal caliber without aneurysm, dissection, or stenosis. Vertebral arteries: Normal caliber without dissection or stenosis. Right carotid artery: There is no significant stenosis. Left carotid artery: There is no significant stenosis. Head: Intracranial internal carotid arteries: Normal caliber without significant stenosis or aneurysm. Middle cerebral arteries: Normal caliber without significant stenosis or aneurysm. Anterior cerebral arteries: Normal caliber without significant stenosis or aneurysm. Basilar artery: Normal caliber without significant stenosis or aneurysm. Posterior cerebral arteries: Normal caliber without significant stenosis or aneurysm. Noncontrast Head: No evidence of acute intracranial hemorrhage, mass, or hydrocephalus. Mild chronic ischemic white matter changes. Mild cortical atrophy. IMPRESSION: No large vessel occlusion/stenosis or aneurysm in the head or neck. Electronically signed by Tyrese Baker 10-15-2024 6:03 PM MDM Narrative Patient was seen and evaluated as above in room C03. Review was performed of triage nursing notes and vital signs. I did review pertinent previous visits and patient history. After obtaining a thorough history and physical examination the above work up was performed. Patient presents to us today for evaluation of vertigo that began this morning, headache, nausea, overall feeling unwell. The patient is tachycardic on arrival at 116. Mildly hypertensive. No fever. On assessment the patient does not have any acute focal deficits. NIHSS 0 per my assessment and nursing assessment @ 1545. Furthermore, will note that in regard to CVA assessment the patient would be considered outside of the window for TNK noting last known well. EKG was performed and reveals per my interpretation sinus tachycardia at a rate of 111 bpm. QTc 446. QRS 72. No ST elevation on this rhythm tracing. There is some baseline artifact noting patient movement. Options of care were discussed with the patient. Patient already had IV access established and labs were already pending. Benefit versus risk of CT imaging reviewed with the patient. Decision was made to proceed with CT imaging of the head, neck as well as chest to further evaluate the patient symptoms at this time. It was felt that the benefit outweighed risk. There is no leukocytosis or concerning anemia. Mild hyperglycemia at 225. Hypercalcemia 10.8. Procalcitonin within normal range. Lipase normal. TSH is low with a normal free T4. Urinalysis reveals glucose, no sign of infection. BioFire panel negative. To be thorough I did add on blood culture as well. CT angios of the head, neck and chest were performed. These are as above. These were essentially negative for acute process. I did review the ascending aortic abnormality with the patient. This is not felt to be contributory at this time. Although there is no large vessel occlusion seen on CT, I do believe that further evaluation and management in the inpatient setting is warranted. Her tachycardia did improve with fluids here. Nausea was mitigated with IV Zofran. Case discussed with the hospitalist service. Please refer to further documentation regarding her stay. GCS: 15 In the evaluation and treatment of this patient the following differential diagnoses were entertained: CVA, TIA, electrolyte disturbance, dehydration, arrhythmia, among others Impression & Plan Dizziness, Nausea, Sinus tachycardia Discharge Plan Visit Data Chief Complaint: Vertigo Stated Complaint: DIZZY, SICK TO STOMACH ED Provider: Christina Nuñez ED Midlevel Provider: Antoine Hoang Discharge Problem: Dizziness, Nausea, Sinus tachycardia Patient Disposition: Admitted As Inpatient Condition: Good Forms Stand Alone Forms: [facility] Prescriptions Prescriptions: No Action (DME) pen needle, diabetic [BD Ultra-Fine Flores Pen Needle] 32 gauge x 5/32" needle See Rx Instructions miscellaneous .MEDSUPPLY Qty: 100 11RF Rx Instructions: Inject insulin 3 x daily metformin 1,000 mg tablet 1,000 mg PO BID Qty: 180 2RF atorvastatin 20 mg tablet 20 mg PO QPM Qty: 90 2RF Invokana 100 mg tablet 100 mg PO QAM Qty: 30 1RF levothyroxine 112 mcg tablet 112 mcg PO DAILYBB Qty: 90 3RF insulin glargine [Lantus Solostar U-100 Insulin] 100 unit/mL (3 mL) insulin pen 16 unit subcut QAM Qty: 15 3RF insulin lispro [Humalog KwikPen Insulin] 100 unit/mL insulin pen 6 unit subcut BID MDD 12 units Qty: 15 3RF (DME) FreeStyle Jose Francisco 14 Day Sensor Kit See Rx Instructions .Route Rx Instructions: As directed Januvia 50 mg tablet 50 mg PO DAILY Qty: 30 3RF cholecalciferol (vitamin D3) 25 mcg (1,000 unit) capsule 25 mcg PO DAILY Qty: 30 5RF (DME) Ketostix Strip See Rx Instructions miscellaneous .MEDSUPPLY Qty: 25 2RF Rx Instructions: Test as needed to monitor for ketones in urine aspirin [Ecotrin Low Strength] 81 mg Tablet,Delayed Release (Dr/Ec) 81 mg PO QAM Qty: 30 0RF Trintellix 20 mg tablet 20 mg PO QPM mirtazapine 30 mg tablet 30 mg PO HS Rexulti 0.5 mg tablet 0.5 mg PO HS ondansetron HCl 4 mg tablet 4 mg PO UD PRN (Reason: Nausea) Referrals Referrals: Andry Kerr MD [Primary Care Provider] -
[2024-10-15 16:07] LABS: Hematocrit (blood only) 43.7 % (37.0-47.0); Hemoglobin 14.6 g/dl (12.0-16.0); Mean Corpuscular Hemoglobin 29.4 pg (25.0-34.0); Mean Corpuscular Hgb Conc 33.4 g/dL (32.0-36.0); Mean Corpuscular Volume 87.9 fL (80.0-100.0); Mean Platelet Volume 9.9 fL (9.4-12.4); Platelet Count 269 K/uL (130-400); RDW Coefficient of Variation 13.4 % (11.5-14.5); RDW Standard Deviation 43.5 fL (36.4-46.3); Red Blood Count 4.97 M/uL (4.20-5.40); White Blood Count 8.35 K/ul (4.8-10.8)
[2024-10-15 16:20] LABS: Alanine Aminotransferase 14 U/L (7-52); Albumin Globulin Ratio 1.3 (0.9-2); Albumin Level 4.4 gm/dl (3.4-5.0); Alkaline Phosphatase 64 U/L (34-104); Anion Gap 9 (3-11); Aspartate Aminotransferase 19 U/L (13-39); BUN Creatinine Ratio 21.4 (10-20); Bilirubin,Total 0.6 mg/dl (0.2-1.0); Blood Urea Nitrogen 15 mg/dl (6-23); Calcium 10.8 mg/dl (8.6-10.3); Carbon Dioxide 28 mmol/L (21-32); Chloride 104 mmol/L (98-107); Creatinine Clr Calc Pharmacy 76.5 ml/min; Globulin 3.4 gm/dl (2.5-4.0); Glucose 225 mg/dl (70-99(Fasting)); Magnesium 1.7 mg/dl (1.7-2.4); Sodium 141 mmol/L (136-145); Total Protein 7.8 gm/dl (6.0-8.3)
[2024-10-15 16:27] LABS: Lipase 46 U/L (11-82)
[2024-10-15 16:31] LABS: Partial Thromboplastin Ratio 0.9; Partial Thromboplastin Time 25 Seconds (21-31); Prothrombin Time 10.7 Seconds (9.0-12.0)
[2024-10-15 16:34] LABS: Troponin I High Sensitivity < 2.3 pg/ml (0-14)
[2024-10-15 16:44] LABS: Thyroid Stimulating Hormone 0.153 uIu/ml (0.300-4.500)
[2024-10-15] MEDS: SODIUM CHLORIDE 0.9% 1,000 ML IV ONE (16:58)
[2024-10-15] MEDS: ONDANSETRON INJ 2 MG/ML 2 ML VIAL IV STA (16:58)
[2024-10-15 17:24] LABS: Appearance Urine Clear (Clear); Bilirubin Urine Negative (Negative); Blood Urine Negative (Negative); Color Urine Yellow; Glucose Urine UA 3+ (Negative); Ketones Urine Negative (Negative); Leukocyte Esterase Urine Negative (Negative); Nitrite Urine Negative (Negative); Protein Urine Negative (Negative); Urobilinogen Urine Negative (Negative); pH Urine 5.5 (4.5-7.5)
[2024-10-15] MEDS: OPTIRAY 320 125ml IV ONE (17:31)
--- NOTE | 2024-10-15 18:04 | CT Scan Report ---
INDICATION: Dizzy TECHNIQUE: Noncontrast of the CT head performed from the skull base to the vertex with coronal reformats. This was followed by contrast CT angiogram head and neck from the aortic arch through the vertex. Sagittal, coronal, axial, and rotational postprocessed maximum intensity projection reconstruction images were performed. COMPARISON: None. FINDINGS: CTA: NECK: Aortic arch: Normal caliber without aneurysm, dissection, or stenosis. Vertebral arteries: Normal caliber without dissection or stenosis. Right carotid artery: There is no significant stenosis. Left carotid artery: There is no significant stenosis. Head: Intracranial internal carotid arteries: Normal caliber without significant stenosis or aneurysm. Middle cerebral arteries: Normal caliber without significant stenosis or aneurysm. Anterior cerebral arteries: Normal caliber without significant stenosis or aneurysm. Basilar artery: Normal caliber without significant stenosis or aneurysm. Posterior cerebral arteries: Normal caliber without significant stenosis or aneurysm. Noncontrast Head: No evidence of acute intracranial hemorrhage, mass, or hydrocephalus. Mild chronic ischemic white matter changes. Mild cortical atrophy. IMPRESSION: No large vessel occlusion/stenosis or aneurysm in the head or neck. Electronically signed by Tyrese Baker 10-15-2024 6:03 PM
--- NOTE | 2024-10-15 18:04 | CT Scan Report ---
INDICATION: Difficulty breathing. COMPARISON: None available. TECHNIQUE: Axial CT images of the chest were obtained following IV contrast administration, PE protocol. Multiplanar reformatted images were reviewed. FINDINGS: No filling defect in the pulmonary arteries seen to suggest pulmonary embolism. Ascending aortic ectasia measuring up to 4.3 cm maximum dimension. Negative for dissection. The heart is mildly enlarged. No pericardial or pleural effusion. No pneumothorax. No focal pulmonary consolidation. No acute osseous abnormality evident. Visualized upper abdominal structures appear unremarkable. IMPRESSION: 1. Negative for pulmonary embolism. 2. Ascending aortic ectasia measuring up to 4.3 cm maximum dimension. Electronically signed by Tyrese Baker 10-15-2024 6:03 PM
--- NOTE | 2024-10-15 18:29 | History & Physical Report ---
Date of Service October 15, 2024 Assessment & Plan (1) Expressive aphasia: (2) Stroke-like symptoms: (3) H/O: stroke: (4) Diabetes: (5) Dizziness: Plan Acute onset of dizziness upon waking the morning of 10/15. Patient coming in for stroke workup. #Dizziness/expressive aphasia/strokelike symptoms Last known well was the evening of 10/14 at 2300 Patient is not TNKase candidate based on her timeline of symptoms While vertigo is within the differential, leading DDx evolution of stroke given new onset expressive aphasia, echolalia, and dizziness at rest Aspirin 324 mg p.o. x 1 given in the ED Patient does have a history of strokes, but reports she has not been taking her aspirin 81 mg daily over the past several months She reports that she ran out, and did not realize she had to keep on taking it Head/neck CTA without acute findings Brain MRI ordered, pending Echocardiogram ordered, pending Dysphagia screen Neurochecks q4h for now Permissive HTN; labetalol 5 mg IV PRN on-call for SBP greater than 220 or DBP greater than 120 Will plan to start patient on DAPT Restart aspirin 81 mg daily Plavix 75 mg daily Increase atorvastatin from 20 mg to 40 mg daily AM CBC, BMP, fasting lipid panel, A1c #History of stroke Noted on brain MRI on 12/30/2021 (several old lacunar infarcts in the left thalamus and basal ganglia) Previously on aspirin 81 mg daily #Tachycardia Chest CTA without evidence of pulmonary embolism Troponin WNL EKG revealed Continuous telemetry monitoring for now #Diabetes Last A1c at 8.1% on 09/07/2023 Hold metformin, sitagliptin, canagliflozin Patient is normally on Lantus 16u QAM Will switch to Lantus 8u BID while inpatient SSI; with target BSG range 110-140mg/dL, CF 50, carb ratio 15 T2DM diet BSG ACHS Adjust regimen as needed #Anxiety/depression/restless leg syndrome Ativan 0.5 mg p.o. twice daily PRN for anxiety Continue Rexulti, Trintellix, mirtazapine Patient does exhibit achalasia on clinical exam Given this new finding, as well as being on multiple serotonergic medications, psychiatry consult appreciated Disposition: Admit to PCU telemetry Full code T2DM diet VTE PPx: SCDs pending brain MRI History of Present Illness Chief Complaint: Dizziness Primary Care Provider: Andry Kerr MD Kourtney is a 69-year-old female with PMH of CVD, medication noncompliance, FTT, and GERD. She presented on 10/15 for dizziness that began this morning. Patient reports that she felt fine last night when she went to bed around 11 PM. She then woke up feeling extremely dizzy at rest. He felt like the room was spinning, and attempted to lay down, but she was still experiencing the dizziness. Patient lives with her boyfriend. Patient denies any slurred speech, facial droop, or unilateral deficits. However she had difficulty talking. She reports she would try to talk, but could not get the words out". She does have a history of stroke, but is unsure when this occurred (several years back). She reports that she stopped taking her regular aspirin a couple months ago after she ran out, and thought that she did not need it. Patient reports that she took her other morning medications today; no difficulty swallowing. The only recent change medication was that she was started on a new diabetic medication 2 months ago. She did not start until 3 weeks ago. Patient did have a fall 2 weeks ago, but reports she did not hit her head. Her legs gav e out while she was ambulating with a walker, and she fell into a chair. Patient ambulates with walker and cane at baseline. She denies smoking, tobacco use, recent alcohol use. She does report she has a history of vertigo, but it has never occurred like this in the past. Patient is hypertensive 146/86 and tachycardic at 116 bpm at time of admission. ED course: NSS 1000 L IV Ondansetron 4 mg IV ROS: Patient endorses dizziness, lightheadedness, headache, changes in vision (blurry vision), expressive aphasia (gradually resolving, but still present), chest tightness/SOB (resolved), nausea, and chronic neuropathy in the legs. Patient denies fever, chills, night-sweats, syncope, diplopia, neck pain/stiffness, difficulty swallowing, tinnitus, slurred speech, facial droop, unilateral deficits, chest pain, pleuritic CP, cough, abdominal pain, vomiting, diarrhea, burning with urination, blood in the urine/stool, or changes in urinary/bowel habits. Allergies Allergy/AdvReac Type Severity Reaction Status Date / Time cisapride Allergy Intermediate Hives Verified 07/22/24 13:17 doxycycline Allergy Intermediate Rash Verified 07/22/24 13:17 gadobutrol [From Gadavist] Allergy Intermediate Hives Verified 07/22/24 13:17 lansoprazole Allergy Intermediate Hives Verified 07/22/24 13:17 Penicillins Allergy Intermediate Rash Verified 07/22/24 13:17 tetracycline Allergy Intermediate Rash Verified 07/22/24 13:17 Home Medications Medication Instructions Recorded Confirmed Type mirtazapine 30 mg tablet 30 mg PO HS 05/04/18 10/15/24 History aspirin 81 mg tablet,delayed 81 mg PO QAM #30 tabs 03/02/19 10/15/24 Rx release (Ecotrin Low Strength) vortioxetine 20 mg tablet 20 mg PO QPM 06/06/19 10/15/24 History (Trintellix) flash glucose sensor (FreeStyle 06/16/21 10/15/24 History Jose Francisco 14 Day Sensor kit) pen needle, diabetic 32 gauge x #100 ea 09/12/23 10/15/24 Rx 5/32" (BD Ultra-Fine Flores Pen Needle) brexpiprazole 0.5 mg tablet 0.5 mg PO HS 11/06/23 10/15/24 History (Rexulti) metformin 1,000 mg tablet 1,000 mg PO BID #180 tabs 02/21/24 10/15/24 Rx acetone (urine) test (Ketostix #25 ea 03/06/24 10/15/24 Rx strips) canagliflozin 100 mg tablet 100 mg PO QAM #30 tabs 06/09/24 10/15/24 Rx (Invokana) levothyroxine 112 mcg tablet 112 mcg PO DAILYBB #90 tabs 06/30/24 10/15/24 Rx cholecalciferol (vitamin D3) 25 25 mcg PO DAILY #30 caps 07/22/24 10/15/24 Rx mcg (1,000 unit) capsule sitagliptin phosphate 50 mg tablet 50 mg PO DAILY #30 tabs 07/22/24 10/15/24 Rx (Januvia) insulin glargine 100 unit/mL (3 16 unit (0.16 mL) subcut QAM #15 mL 07/25/24 10/15/24 Rx mL) subcutaneous pen (Lantus Solostar U-100 Insulin) insulin lispro 100 unit/mL 6 unit (0.06 mL) subcut BID #15 mL 07/25/24 10/15/24 Rx subcutaneous pen (Humalog KwikPen (U-100) Insulin) ondansetron HCl 4 mg tablet 4 mg PO UD PRN Nausea 10/15/24 10/15/24 History atorvastatin 20 mg tablet 40 mg (2 x 20 mg) PO QPM #90 tabs 10/16/24 Rx clopidogrel 75 mg tablet 75 mg PO QAM #30 tabs 10/16/24 Rx Past Med/Surg History Problem List (Updated 10/16/24 @ 14:43 by Richard Epperson MD) Major depressive disorder in remission Diabetes H/O: stroke Stroke-like symptoms Expressive aphasia Sinus tachycardia (Acute) Nausea (Acute) Dizziness (Acute) Acute bilateral knee pain (Acute) Medical non-compliance Choledocholithiasis Acute calculous cholecystitis Hyperglycemia (Acute) Vitamin D deficiency Failure to thrive Abdominal pain, acute, left upper quadrant (Acute) Norovirus Malaise DVT prophylaxis COVID-19 (Acute) Hypercalcemia (Acute) Cerebrovascular disease Postsurgical hypothyroidism (Chronic) GERD (gastroesophageal reflux disease) Medical History Sinus tachycardia Hyperglycemia due to type 2 diabetes mellitus Restless legs Atrial tachycardia Elevated lactic acid level Hypothyroidism Elevated lactic acid level Hyperglycemia Chest pain Hyperglycemia Abdominal pain Lactic acidemia Abdominal pain Diarrhea Hypoglycemia History of anemia Gout Cervical dysplasia Diabetic peripheral neuropathy H/O: stroke Cerebellar infarct Acute CVA (cerebrovascular accident) Altered mental status Vertigo Hypothyroidism Sensory ataxia Polyneuropathy Major depressive disorder Lumbosacral radiculopathy Hyperlipidemia Encounter for routine gynecological examination Diabetic peripheral neuropathy 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 CVA (cerebral vascular accident) Chronic skin ulcer of right ear Depression with anxiety T2DM (type 2 diabetes mellitus) Weakness TIA (transient ischemic attack) Neurological deficit present Hyperglycemia Dizziness Wound, open, ear, external with complication Suicide attempt Major depressive disorder, recurrent episode, severe with anxious distress Lumbar stenosis with neurogenic claudication Lower extremity weakness Intractable low back pain Hypotension Hypokalemia Hypertension HNP (herniated nucleus pulposus), lumbar Fecal impaction Dyslipidemia DKA (diabetic ketoacidoses) Constipation Chest pain Anxiety Altered mental status Acute gastritis Diabetes Surgical History Hx laparoscopic cholecystectomy (08/16/23) Robotic Laparoscopic Cholecystectomy - Stephen Talley, DO, FACS History of total abdominal hysterectomy H/O laparoscopy Status post hysteroscopic ablation of endometrium H/O dilation and curettage History of dental surgery History of colposcopy with cervical biopsy Previous back surgery History of tonsillectomy Status post lumbar spine surgery for decompression of spinal cord H/O cardiac catheterization History of hysterectomy Family History Mother , in her early 70s of some sort of cancer (patient not clear if it was breast cancer) Breast cancer Diabetes Grandmother Breast cancer Grandmother Breast cancer Unknown Colon cancer Father , Diet it age 78 of a myelodysplastic syndrome. He also had Pbuiypm-Loewd-Wsxzn disease. Myelodysplasia (myelodysplastic syndrome) Jnqsbwp-Ggfuq-Jtktw disease Heart disease Brother Iatoxdn-Rtipd-Jwfgy disease Other No pertinent family history in first degree relatives Social History Smoking Status: Never smoker Second Hand Exposure: No; Do You Dip or Chew Tobacco: No; Tobacco Cessation Education Requested by Patient: No Hx Alcohol Use: No Hx Substance Use: No Preferred Language: Dominican Communication Ability: Effective Visual Impairment: No Limitations Data Reduction Technician Required: No Beliefs That Will Affect Care: None marital status: significant other Current Living Situation: Significant Other Current Living Situation Comment: lives w/ boyfriend current occupational status: disabled current occupation: Patient used to work at [employer] for 23 years and then [employer] How many Children do You have: 2 Other Information That Helps Us Care for You: No other: Retired on disability from her back 3 years ago Feels Safe at Home: Yes Safety Concerns: Feels Safe At This Time Assistive Devices: Walker Review of Systems Review of Systems: See HPI above Physical Exam Physical Exam: General: no acute distress; anxious; non-toxic appearing; cooperative; SpO2 95% on RA HEENT: normocephalic, atraumatic; no scleral icterus; PERRLA w/ EOMs intact, however EOMs do cause patient to become dizzy; positive horizontal nystagmus; poor dentures; vision and hearing intact Neck: supple; no lymphadenopathy; trachea midline; patient demonstrated the ability to structural against resistance and rotate neck bilaterally without unilateral deficits Skin: warm, dry without signs of tenting; no cyanosis; no rashes, bruising, lesions, or erythema noted CV: chest wall NTP; RRR; S1/S2 normal; no murmurs/rubs/gallops; pulses intact and symmetric at radial, DP, and PT Lungs: no acute respiratory distress; symmetrical chest wall expansion; clear breath sounds across all lung bella w/o adventitious sounds; no wheezing ABD: Soft, NTP; BS present; no rebound/guarding; no distention MSK: Patient exhibits resting tremor in her upper and lower extremities bilaterally; restless leg syndrome; no edema noted in the LEs b/l, nonerythematous; 4/5 strength in the hands bilaterally; patient demonstrates ability to lift legs off the bed with decreased strength 3/5 bilaterally Neuro: A&Ox3; some difficulty with speech, echolalia; negative pronator drift; patient reports that sensation is intact and symmetric in the face bilaterally assessed at 3 dermatomes; sensation is intact and symmetric in the upper extremities bilaterally; however she has chronic neuropathy in her feet and reports that she has diminished sensation in the lower extremity bilaterally Results & Data Results & Data Vital Signs (Past 12 Hours) Vital Signs Temp Pulse Resp BP Pulse Ox O2 Del Method 10/15/24 15:50 95 Room Air 10/15/24 15:50 95 Room Air 10/15/24 15:43 116 H 10/15/24 15:31 36.1 C L 117 H 18 146/86 H 96 Room Air Laboratory Results Abnormal lab results 10/15/24 10/15/24 10/15/24 Range/Units 15:42 15:47 16:17 BUN/Creatinine Ratio 21.4 H (10-20) Glucose 225 H (70-99(Fasting)) mg/dl POC Glucose 212 H (70-99) mg/dl Calcium 10.8 H (8.6-10.3) mg/dl TSH 0.153 L (0.300-4.500) uIu/ml Ur Specific [place] 1.040 H (1.000-1.030) Urine Glucose (UA) 3+ H (Negative) Diagnostic Findings Chest CTA 10/15/24 16:08 INDICATION: Difficulty breathing. COMPARISON: None available. TECHNIQUE: Axial CT images of the chest were obtained following IV contrast administration, PE protocol. Multiplanar reformatted images were reviewed. FINDINGS: No filling defect in the pulmonary arteries seen to suggest pulmonary embolism. Ascending aortic ectasia measuring up to 4.3 cm maximum dimension. Negative for dissection. The heart is mildly enlarged. No pericardial or pleural effusion. No pneumothorax. No focal pulmonary consolidation. No acute osseous abnormality evident. Visualized upper abdominal structures appear unremarkable. IMPRESSION: 1. Negative for pulmonary embolism. 2. Ascending aortic ectasia measuring up to 4.3 cm maximum dimension. Electronically signed by Tyrese Baker 10-15-2024 6:03 PM Head CTA 10/15/24 16:08 INDICATION: Dizzy TECHNIQUE: Noncontrast of the CT head performed from the skull base to the vertex with coronal reformats. This was followed by contrast CT angiogram head and neck from the aortic arch through the vertex. Sagittal, coronal, axial, and rotational postprocessed maximum intensity projection reconstruction images were performed. COMPARISON: None. FINDINGS: CTA: NECK: Aortic arch: Normal caliber without aneurysm, dissection, or stenosis. Vertebral arteries: Normal caliber without dissection or stenosis. Right carotid artery: There is no significant stenosis. Left carotid artery: There is no significant stenosis. Head: Intracranial internal carotid arteries: Normal caliber without significant stenosis or aneurysm. Middle cerebral arteries: Normal caliber without significant stenosis or aneurysm. Anterior cerebral arteries: Normal caliber without significant stenosis or aneurysm. Basilar artery: Normal caliber without significant stenosis or aneurysm. Posterior cerebral arteries: Normal caliber without significant stenosis or aneurysm. Noncontrast Head: No evidence of acute intracranial hemorrhage, mass, or hydrocephalus. Mild chronic ischemic white matter changes. Mild cortical atrophy. IMPRESSION: No large vessel occlusion/stenosis or aneurysm in the head or neck. Electronically signed by Tyrese Baker 10-15-2024 6:03 PM Neck CTA 10/15/24 16:08 INDICATION: Dizzy TECHNIQUE: Noncontrast of the CT head performed from the skull base to the vertex with coronal reformats. This was followed by contrast CT angiogram head and neck from the aortic arch through the vertex. Sagittal, coronal, axial, and rotational postprocessed maximum intensity projection reconstruction images were performed. COMPARISON: None. FINDINGS: CTA: NECK: Aortic arch: Normal caliber without aneurysm, dissection, or stenosis. Vertebral arteries: Normal caliber without dissection or stenosis. Right carotid artery: There is no significant stenosis. Left carotid artery: There is no significant stenosis. Head: Intracranial internal carotid arteries: Normal caliber without significant stenosis or aneurysm. Middle cerebral arteries: Normal caliber without significant stenosis or aneurysm. Anterior cerebral arteries: Normal caliber without significant stenosis or aneurysm. Basilar artery: Normal caliber without significant stenosis or aneurysm. Posterior cerebral arteries: Normal caliber without significant stenosis or aneurysm. Noncontrast Head: No evidence of acute intracranial hemorrhage, mass, or hydrocephalus. Mild chronic ischemic white matter changes. Mild cortical atrophy. IMPRESSION: No large vessel occlusion/stenosis or aneurysm in the head or neck. Electronically signed by Tyrese Baker 10-15-2024 6:03 PM ECG Additional Comments: ECG revealed sinus tachycardia at 111 bpm; QTc 446 Code Status & VTE Plan Code Status Full code VTE Prophylaxis Plan VTE Prophylaxis will be ordered: Yes Supervising Physician Co-Signing Physician Notes Patient seen and examined, chart reviewed, case discussed with Marcus Cadet PA-C and I agree with the assessment and plan as above except as otherwise noted Labs and images reviewed 69-year-old female with a past medical history of medication noncompliance, GERD, cerebrovascular disease, postsurgical hypothyroidism who presents to the ER with dizziness upon awaking. Was last normal last night. Woke up this morning and has had a dizziness with vertiginous/room spinning quality. No extremity strength/sensory deficits or slurred speech but does feel like she is having difficulty speaking/expressive aphasia. Prior strokes in 2021. CThead/CTAhead and neck without acute findings. Has a history of both vertigo and strokes in the past. She stopped taking her aspirin several months ago. Will give full dose aspirin, follow-up with MRI and additional recommendations based on results. At bedside she is fairly restless, borderline akathetic with some echolalia. She has not had any psychotropic medication changes but is on Rexulti and mirtazapine and Trintellix. No fever or diaphoresis. No inducible ankle clonus with his with some increased tone. Given atypical speech pattern echolalia somewhat atypical from dysarthria/aphasia and with multiple serotonergic medications psych has been consulted. Is been given 0.5 mg Ativan x 1 with twice daily on-call for anxiety. Patient reports he feels extremely anxious and nervous, that her speech changes is not typical for her but she also feels like it might be due to being nervous about being in the hospital. lipid panel pending, recommend increasing atorvastatin to at least moderate potency/40 mg. Agree with above. PG Care Time/CCT Total # of Minutes Spent Total Time Spent with Patient: Total time spent is greater than 50% in coordination of care (as documented) at patient's floor/unit and/or counseling patient: Coding [place] [address] INT INP/OBS CARE 3/75MIN Patient Type Established Medical Decision Making High Complexity Diagnoses Expressive aphasia R47.01 Stroke-like symptoms R29.90 H/O: stroke Z86.73 Diabetes E11.9 Dizziness R42
[2024-10-15] MEDS ORDERED: PHARMACIST DISCHARGE MED REC CONSULT PRN (18:52)
[2024-10-15] MEDS: ASPIRIN CHEW 324 MG PO STA (19:06)
[2024-10-15 19:23] LABS: Adenovirus PCR Not Detected (NotDetected); Bordetella parapertussis PCR Not Detected (NotDetected); Bordetella pertussis PCR Not Detected (NotDetected); Chlamydia pneumoniae PCR Not Detected (NotDetected); Coronavirus 229E PCR Not Detected (NotDetected); Coronavirus CoV-2 (COVID19)PCR Not Detected (NotDetected); Coronavirus HKU1 PCR Not Detected (NotDetected); Coronavirus NL63 PCR Not Detected (NotDetected); Coronavirus OC43PCR Not Detected (NotDetected); Human Metapneumovirus PCR Not Detected (NotDetected); Influenza A PCR Not Detected (NotDetected); Influenza B PCR Not Detected (NotDetected); Mycoplasma pneumoniae PCR Not Detected (NotDetected); Parainfluenza Virus 1 PCR Not Detected (NotDetected); Parainfluenza Virus 2 PCR Not Detected (NotDetected); Parainfluenza Virus 3 PCR Not Detected (NotDetected); Parainfluenza Virus 4 PCR Not Detected (NotDetected); Respiratory Syncytial VirusPCR Not Detected (NotDetected); Rhinovirus/Enterovirus PCR Not Detected (NotDetected)
[2024-10-15] MEDS: LORazepam 0.5 MG TAB PO PRN (19:31)
[2024-10-15] MEDS ORDERED: CARBOHYDRATES FOR HYPOGLYCEMIA PO PRN (21:08)
[2024-10-15] MEDS ORDERED: GLUCOSE 10 TAB/TUBE PO PRN (21:08)
[2024-10-15] MEDS ORDERED: LABETALOL HCL IV 5 MG/ML 20ML IV PRN (21:08)
[2024-10-15] MEDS ORDERED: DEXTROSE 50% 50 ML SYRINGE IV PRN (21:08)
[2024-10-15] MEDS ORDERED: GLUCAGON FOR INJ 1 MG VIAL SQ PRN (21:08)
[2024-10-15] MEDS ORDERED: GLUCOSE 40% GEL 15 GM TUBE PO PRN (21:08)
[2024-10-15] MEDS: ATORVASTATIN 40 MG TAB PO SCH (21:38)
[2024-10-15] MEDS: MIRTAZAPINE TAB 15 MG TAB PO SCH (21:38)
[2024-10-15] MEDS: INSULIN ASPART PER UNIT CHARGE SC SCH (22:01)
[2024-10-15 23:05] VITALS: O2SAT 94
--- NOTE | 2024-10-15 23:12 | Magnetic Resonance Report ---
Exam(s): MRI HEAD Without Contrast EXAM: MR Head Without Intravenous Contrast CLINICAL HISTORY: Reason for exam: Expressive aphasia, dizziness at rest. TECHNIQUE: Magnetic resonance images of the head/brain without intravenous contrast in multiple planes. COMPARISON: Prior head CT from October 15, 2024. FINDINGS: Brain: Remote ischemic injury of the left capsule and thalamus. Mild nonspecific with no changes. No mass. No hemorrhage. No acute infarct. The flow voids at base of brain are intact. Ventricles: Mild ventriculomegaly. Bones/joints: Unremarkable. No acute fracture. Sinuses: Chronic ethmoid sinusitis. No acute sinusitis. Mastoid air cells: Unremarkable as visualized. No mastoid effusion. Orbits: Unremarkable as visualized. IMPRESSION: No evidence of acute intracranial pathology. Electronically signed by: Betty Zuleta MD 10/15/24 23:11 PM
--- OUTSIDE RECORDS SUMMARY | 2024-10-16 02:16 | External Medical Summary | Continuity of Care Document ---
Author Name Unknown Organization [facility] [address] [facility] Address [address] [place], [place] [id number] Support Name Relationship Address Phone KRISTOFER, ANNIE Personal Relationship Unknown Jenni vailable KRISTOFER, ANNIE Personal Relationship Unknown Jenni vailable KRISTOFER, ANNIE Personal Relationship Unknown Jenni vailable KRISTOFER, ANNIE Personal Relationship Unknown Jenni vailable KRISTOFER, ANNIE Personal Relationship Unknown Jenni vailable KRISTOFER, ANNIE Personal Relationship Unknown Jenni vailable KRISTOFER, ANNIE Personal Relationship Unknown Jenni vailable KRISTOFER, ANNIE Personal Relationship Unknown Jenni vailable KRISTOFER, ANNIE Personal Relationship Unknown Jenni vailable KRISTOFER, ANNIE Personal Relationship Unknown Jenni vailable KRISTOFER, ANNIE Personal Relationship Unknown Jenni vailable KRISTOFER, ANNIE Personal Relationship Unknown Jenni vailable KRISTOFER, ANNIE Personal Relationship Unknown Jenni vailable KRISTOFER, ANNIE Personal Relationship Unknown Jenni vailable KRISTOFER, ANNIE Personal Relationship Unknown Jenni vailable KRISTOFER, ANNIE Personal Relationship Unknown Jenni vailable KRISTOFER, ANNIE Personal Relationship Unknown Jenni vailable KRISTOFER, ANNIE Personal Relationship Unknown Jenni vailable KRISTOFER, ANNIE Personal Relationship Unknown Jenni vailable KRISTOFER, ANNIE Personal Relationship Unknown Jenni vailable KRISTOFER, ANNIE Personal Relationship Unknown Jenni vailable KRISTOFER, ANNIE Personal Relationship Unknown Jenni vailable KRISTOFER, ANNIE Personal Relationship Unknown Jenni vailable KRISTOFER, ANNIE Personal Relationship Unknown Jenni vailable KRISTOFER, ANNIE Personal Relationship Unknown Jenni vailable KRISTOFER, ANNIE Personal Relationship Unknown Jenni vailable KRISTOFER, ANNIE Personal Relationship Unknown Jenni vailable KRISTOFER, ANNIE Personal Relationship Unknown Jenni vailable KRISTOFER, ANNIE Personal Relationship Unknown Jenni vailable KRISTOFER, ANNIE Personal Relationship Unknown Jenni vailable KRISTOFER, ANNIE Personal Relationship Unknown Jenni vailable KRISTOFER, ANNIE Personal Relationship Unknown Jenni vailable KRISTOFER, ANNIE Personal Relationship Unknown Jenni vailable KRISTOFER, ANNIE Personal Relationship Unknown Jenni vailable KRISTOFER, ANNIE Personal Relationship Unknown Jenni vailable KRISTOFER, ANNIE Personal Relationship Unknown Jenni vailable KRISTOFER, ANNIE Personal Relationship Unknown Jenni vailable KRISTOFER, ANNIE Personal Relationship Unknown Jenni vailable KRISTOFER, ANNIE Personal Relationship Unknown Jenni vailable KRISTOFER, ANNIE Personal Relationship Unknown Jenni vailable KRISTOFER, ANNIE Personal Relationship Unknown Jenni vailable KRISTOFER, ANNIE Personal Relationship Unknown Jenni vailable KRISTOFER, ANNIE Personal Relationship Unknown Jenni vailable KRISTOFER, ANNIE Personal Relationship Unknown Jenni vailable KRISTOFER, ANNIE Personal Relationship Unknown Jenni vailable KRISTOFER, ANNIE Personal Relationship Unknown Jenni vailable KRISTOFER, ANNIE Personal Relationship Unknown Jenni vailable KRISTOFER, ANNIE Personal Relationship Unknown Jenni vailable KRISTOFER, ANNIE Personal Relationship Unknown Jenni vailable KRISTOFER, ANNIE Personal Relationship Unknown Jenni vailable KRISTOFER, ANNIE Personal Relationship Unknown Jenni vailable KRISTOFER, ANNIE Personal Relationship Unknown Jenni vailable KRISTOFER, ANNIE Personal Relationship Unknown Jenni vailable KRISTOFER, ANNIE Personal Relationship Unknown Jenni vailable KRISTOFER, ANNIE Personal Relationship Unknown Jenni vailable KRISTOFER, ANNIE Personal Relationship Unknown Jenni vailable KRISTOFER, ANNIE Personal Relationship Unknown Jenni vailable KRISTOFER, ANNIE Personal Relationship Unknown Jenni vailable KRISTOFER, ANNIE Personal Relationship Unknown Jenni vailable KRISTOFER, ANNIE Personal Relationship Unknown Jenni vailable KRISTOFER, ANNIE Personal Relationship Unknown Jenni vailable KRISTOFER, ANNIE Personal Relationship Unknown Jenni vailable KRISTOFER, ANNIE Personal Relationship Unknown Jenni vailable KRISTOFER, ANNIE Personal Relationship Unknown Jenni vailable KRISTOFER, ANNIE Personal Relationship Unknown Jenni vailable KRISTOFER, ANNIE Personal Relationship Unknown Jenni vailable KRISTOFER, ANNIE Personal Relationship Unknown Jenni vailable KRISTOFER, ANNIE Personal Relationship Unknown Jenni vailable KRISTOFER, ANNIE Personal Relationship Unknown Jenni vailable KRISTOFER, ANNIE Personal Relationship Unknown Jenni vailable KRISTOFER, ANNIE Personal Relationship Unknown Jenni vailable KRISTOFER, ANNIE Personal Relationship Unknown Jenni vailable KRISTOFER, ANNIE Personal Relationship Unknown Jenni vailable KRISTOFER, ANNIE Personal Relationship Unknown Jenni vailable KRISTOFER, ANNIE Personal Relationship Unknown Jenni vailable KRISTOFER, ANNIE Personal Relationship Unknown Jenni vailable KRISTOFER, ANNIE Personal Relationship Unknown Jenni vailable KRISTOFER, ANNIE Personal Relationship Unknown Jenni vailable KRISTOFER, ANNIE Personal Relationship Unknown Jenni vailable KRISTOFER, ANNIE Personal Relationship Unknown Jenni vailable KRISTOFER, ANNIE Personal Relationship Unknown Jenni vailable [place] Personal Relationship Unknown Un available KRISTOFER, ANNIE Personal Relationship Unknown Jenni vailable KRISTOFER, ANNIE Personal Relationship Unknown Jenni vailable KRISTOFER, ANNIE Personal Relationship Unknown Jenni vailable KRISTOFER, ANNIE Personal Relationship Unknown Jenni vailable KRISTOFER, ANNIE Personal Relationship Unknown Jenni vailable KRISTOFER, ANNIE Personal Relationship Unknown Jenni vailable KRISTOFER, ANNIE Personal Relationship Unknown Jenni vailable KRISTOFER, ANNIE Personal Relationship Unknown Jenni vailable KRISTOFER, ANNIE Personal Relationship Unknown Jenni vailable KRISTOFER, ANNIE Personal Relationship Unknown Jenni vailable KRISTOFER, ANNIE Personal Relationship Unknown Jenni vailable KRISTOFER, ANNIE Personal Relationship Unknown Jenni vailable [place] Personal Relationship Unknown Unavailable KRISTOFER, ANNIE Personal Relationship Unknown Jenni vailable KRISTOFER, ANNIE Personal Relationship Unknown Jenni vailable KRISTOFER, ANNIE Personal Relationship Unknown Jenni vailable KRISTOFER, ANNIE Personal Relationship Unknown Jenni vailable KRISTOFER, ANNIE Personal Relationship Unknown Jenni vailable KRISTOFER, ANNIE Personal Relationship Unknown Jenni vailable KRISTOFER, ANNIE Personal Relationship Unknown Jenni vailable KRISTOFER, ANNIE Personal Relationship Unknown Jenni vailable KRISTOFER, ANNIE Personal Relationship Unknown Jenni vailable KRISTOFER, ANNIE Personal Relationship Unknown Jenni vailable KRISTOFER, ANNIE Personal Relationship Unknown Jenni vailable KRISTOFER, ANNIE Personal Relationship Unknown Jenni vailable KRISTOFER, ANNIE Personal Relationship Unknown Jenni vailable KRISTOFER, ANNIE Personal Relationship Unknown Jenni vailable KRISTOFER, ANNIE Personal Relationship Unknown Jenni vailable KRISTOFER, ANNIE Personal Relationship Unknown Jenni vailable KRISTOFER, ANNIE Personal Relationship Unknown Jenni vailable KRISTOFER, ANNIE Personal Relationship Unknown Jenni vailable KRISTOFER, ANNIE Personal Relationship Unknown Jenni vailable KRISTOFER, ANNIE Personal Relationship Unknown Jenni vailable KRISTOFER, ANNIE Personal Relationship Unknown Jenni vailable KRISTOFER, ANNIE Personal Relationship Unknown Jenni vailable KRISTOFER, ANNIE Personal Relationship Unknown Jenni vailable KRISTOFER, ANNIE Personal Relationship Unknown Jenni vailable KRISTOFER, ANNIE Personal Relationship Unknown Jenni vailable KRISTOFER, ANNIE Personal Relationship Unknown Jenni vailable KRISTOFER, ANNIE Personal Relationship Unknown Jenni vailable KRISTOFER, ANNIE Personal Relationship Unknown Jenni vailable KRISTOFER, ANNIE Personal Relationship Unknown Jenni vailable KRISTOFER, ANNIE Personal Relationship Unknown Jenni vailable KRISTOFER, ANNIE Personal Relationship Unknown Jenni vailable KRISTOFER, ANNIE Personal Relationship Unknown Jenni vailable KRISTOFER, ANNIE Personal Relationship Unknown Jenni vailable Care Team Providers Care Taker Down Name Role Phone Andry Kerr Primary Care Physician [phone] Encounter [facility] [id number] Date(s): 10/08/24 - 10/08/24 [facility] [address] [facility] [address] [place] [address] [place] [phone] Encounter Diagnosis Hyperglycemia(Discharge Diagnosis) - 10/08/24 DIABETES MELLITUS(Discharge Diagnosis) - 10/08/24 DEPRESSION(Discharge Diagnosis) - 10/08/24 Nausea & vomiting(Discharge Diagnosis) - 10/08/24 Discharge Disposition: Home or Self Care Attending Physician: MD Kerr Juan Referring Physician: MD Kerr Juan Encounter Type: Clinic Allergies, Adverse Reactions, Alerts Substance Criticality Severity Reaction Reaction Severity Status doxycycline rash Active Levothroid "didn't work" Activ e Prevacid unknown Active Zocor leg pain Active Aldactazide cramps Active Prinivil cough Active Assessment and Plan Extracted from: Title:Office Visit Note Author:MD Kerr Juan Larry e:10/08/24 1.Hyperglycemia advised pt to f/u with endo and call endo beforegoing to ER. 2.DIABETES MELLITUS advised pt to f/u with endo and call endo beforegoing to ER. 3.DEPRESSION Status: chronic, controlled. Data: EMR. Goal: controlled and stable. Plan: continue current treatment plan. 4.Nausea & vomiting acuteand recurrent.etiology undifferentiated.Butsuspect gastroparesis. Advised pt decrease supper size, and eat a small breakfast - small and ferqmeals. Rx zofran forprnuse. BTO as scheduled 10/29/2024. Immunizations Given and Recorded Vaccine Date Status Refusal Reason influenza virus vaccine, inactivated 06/26/24 Give n influenza virus vaccine, inactivated 05/02/23 Give n influenza virus vaccine, inactivated 05/19/21 Give n influenza virus vaccine, inactivated 05/27/20 Give n influenza virus vaccine, inactivated 1 05/05/19 Gi monse influenza virus vaccine, inactivated 06/28/18 Give n influenza virus vaccine, inactivated 04/14/16 Give n influenza virus vaccine, inactivated 07/16/15 Give n influenza virus vaccine, inactivated 04/01/12 Give n pneumococcal 23-valent vaccine 08/24/22 Given pneumococcal 23-valent vaccine 05/28/04 Recorded pneumococcal 23-valent vaccine 12/19/02 Recorded pneumococcal 13-valent vaccine 09/21/21 Given pneumococcal 13-valent vaccine 02/08/15 Given tetanus/diphtheria/pertuss, acel (Tdap) 02/03/18 R ecorded 1Early/Late Reason: System Down Medications aspirin 81 mg oral delayed release tablet Start: 06/28/18 10:36:00 AM EST, 1 tab, PO, Daily Start Date: 06/28/18 Status: Ordered Repeat number: 1 atorvastatin 10 mg oral tablet Start: 10/16/23 2:54:00 PM EDT, 1 tab, PO, Daily Start Date: 10/16/23 Status: Ordered Repeat number: 1 BD needle Ultra-Fine III Mini Pen 31G x 5mm Start: 09/16/18 2:07:46 PM EST, See Instructions, Disp# 150 each, Refills: 11, Please make sure thatare compatable with Solostar pen. Use with Insulin inection daily, Note to Pharmacy: DX: E11.9;use 4/day, Pharmacy: [facility]/pharmacy #[id number] Start Date: 09/16/18 Status: Ordered Quantity: 150.0 Unit: each Repeat number: 12 HumaLOG KwikPen 100 units/mL injectable solution Start: 10/10/22 9:26:00 AM EST, 3 unit =, subQ, ac, Start Date: 10/10/22 Status: Ordered Repeat number: 1 Invokana 100 mg oral tablet Start: 10/27/21 2:21:00 PM EDT Start Date: 10/27/21 Status: Ordered Repeat number: 1 Lantus Solostar Pen 100 units/mL subcutaneous solution Start: 10/22/19 10:30:35 AM EDT, See Instructions, Disp# 90, Refills: 3, TAKE 20 UNITS SUBQ DAILY INMORNING (PRIOR AUTH), Pharmacy: [facility]/pharmacy #[id number] Start Date: 10/22/19 Status: Ordered Quantity: 90.0 Unit: syringe Repeat number: 4 levothyroxine 112 mcg (0.112 mg) oral tablet Start: 10/10/22 9:28:00 AM EST, 1 tab, PO, Daily Start Date: 10/10/22 Status: Ordered Repeat number: 1 metFORMIN 1000 mg oral tablet See Instructions, Disp# 180 tab, Refills: 3, TAKE 1 TABLET BY MOUTH TWICE A DAY, Pharmacy: [id number] Start Date: 11/15/20 Status: Ordered Quantity: 180.0 Unit: tab Repeat number: 1 MiraLax oral powder for reconstitution Start: 07/16/17 5:08:00 PM EST, 17 g =, PO, Daily, Disp# 527 g, Refills: 3, Pharmacy: [facility] Start Date: 07/16/17 Status: Ordered Quantity: 527.0 Unit: g Repeat number: 4 mirtazapine 30 mg oral tablet Start: 04/12/21 1:10:00 PM EDT, 1 tab, PO, qhs, Disp# 30 tab, Refills: 11, Pharmacy: [facility]/pharmacy #[id number] Start Date: 04/12/21 Status: Ordered Quantity: 30.0 Unit: tab Repeat number: 12 Rexulti 1 mg oral tablet Start: 09/26/22 4:08:00 PM EST Start Date: 09/26/22 Status: Ordered Repeat number: 1 Trintellix 10 mg oral tablet Start: 05/05/19 9:25:00 AM EDT, See Instructions, 20mg PO Daily Start Date: 05/05/19 Status: Ordered Repeat number: 1 unlisted medication Start: 04/21/16 12:34:00 PM EDT, unlisted medication, eRx Product Type: Supply, See Instructions, Disp# 3 box, Refills: 3, Reeders for lantus solostar pen. DM TYPE II E11.9 to be tested tid., [facility] Start Date: 04/21/16 Status: Ordered Quantity: 3.0 Unit: box Repeat number: 4 Zofran 4 mg oral tablet Start: 10/08/24 1:11:00 PM EST, 1 tab, PO, q8h, Disp# 20 tab, Refills: 5, PRN: as needed for nausea/vomiting, Pharmacy: [facility]/pharmacy #[id number] Start Date: 10/08/24 Status: Ordered Quantity: 20.0 Unit: tab Repeat number: 6 Mental Status 10/08/24 Barriers to Learning one year None evide nt Mandatory Health Literacy Documentation Yes Health Literacy Communication Barriers N ever Primary Language Senegalese Problem List Condition Confirmation Course Effective Dates Status H ealth Status Informant Abnormal leg movement Confirmed Active DIABETES MELLITUS 1 Confirmed 07/26/10 Active Foot drop Confirmed Active ANXIETY Confirmed 07/26/10 Active Status post CVA Confirmed Active Panic attacks Confirmed Active DEPRESSION 2 Confirmed 07/26/10 Active Sinus tachycardia Confirmed Active Fatty liver 3 Confirmed Active Transient cerebral ischemia Confirmed Active UNSPECIFIED HYPOTHYROIDISM 4 Confirmed 07/26/10 Active VITAMIN D DEFICIENCY Confirmed 09/13/10 Active Ambulatory dysfunction Confirmed Active Weight disorder Confirmed Active 1se[facility] [place] in [place] 3fatty liver on US in 10/2013 4sees [facility] endo Diagnosis Diagnosis Type Effective Dates Health Status Clinical Service Informant Nausea & vomiting Discharge Diagnosis 10/08/24 Non-Specified Hyperglycemia Discharge Diagnosis 10/08/24 Non-Specified DIABETES MELLITUS Discharge Diagnosis 10/08/24 Non-Specified DEPRESSION Discharge Diagnosis 10/08/24 Non-Specified Procedures Procedure Date Related Diagnosis Body Site Status Cholecystectomy 08/2023 Completed Chest X-ray 1 04/15/[address] angiography of chest with contrast 2 04/15/[address] of abdomen and pelvis wit h intravenous contrast 3 02/25/23 Completed Chest X-ray 4 10/08/[address] of abdomen and pelvis wit hout contrast 5 10/08/22 Completed Chest X-ray 6 09/24/[address] of abdomen and pelvis wit h contrast 7 09/24/[address] of chest with contrast 8 09/24/22 Completed US scan of gallbladder 9 09/24/22 Completed Chest X-ray 10 04/08/22 Completed MRI of brain 11 12/30/21 Completed CXR - Chest X-ray 12 11/20/21 Comp leted Bone density finding 13 10/12/21 C ompleted Screening mammogram of bilat eral breasts 14 10/12/[address] of abdomen and pelvis 15 09/08/21 Completed Chest X-ray 16 09/01/21 Completed CXR - Chest X-ray 17 08/03/21 Comp leted Chest X-ray 18 03/24/[address] of abdomen and pelvis 19, 20 03/24/[address] scan abdomen/pelvis 21 03/24/21 Completed Venous doppler ultrasonograp hy bilat lower extremity 22 06/17/20 Completed Chest X-ray 23 06/13/20 Completed Colonoscopy 24 04/28/[address] of abdomen and pelvis 25 02/13/20 Completed US abdominal scan 26 11/01/19 Comp leted KUB X-ray 27 10/30/19 Completed CXR - Chest X-ray 28 10/01/[address] angiography of head and neck 29 06/06/19 Completed CXR - Chest X-ray 30 06/06/[address] of head 31 02/25/19 Completed CXR - Chest X-ray 32 02/25/[address] angiogram of head, neck a nd thorax 33 08/29/18 Completed Echocardiogram 34 08/29/18 Complet ed MRI of brain with contrast 35 08/29/[address] of head 36 08/28/[address] of head 37 08/28/18 Completed Mammogram - screening 38 07/29/18 Completed Shave biopsy 39 06/17/18 Completed CXR - Chest X-ray 40 09/11/16 Comp leted MRI of lumbar spine 41 08/02/16 Co mpleted MRI of lumbar spine 42 08/02/16 Co mpleted X-ray of lumbar spine and sa croiliac joints 43 08/02/16 Completed X-ray of lumbar spine and sa croiliac joints 44 08/02/16 Completed Venous doppler ultrasonography 45 08/01/[address] angiogram of pelvis 46 07/31/[address] angiogram of the chest, a bdomen, and pelvis combo 47 07/31/16 Completed Ultrasound,biliary 07/28/16 Comple eliel X-ray 48 07/27/16 Completed Overdose--meloxicam 49 07/26/16 Co mpleted Knee X-ray 50 06/13/16 Completed Tibia and fibula X-ray 51 06/13/16 Completed MRI of brain and brain stem 52 03/25/[address] of head 53 03/24/16 Completed Doppler bilateral lower ext. 54 03/23/16 Completed MRI of lumbar spine 55 03/23/16 Co mpleted Echocardiogram 56 03/22/16 Complet ed X-ray of L. spine 57 03/02/16 Comp leted Lumbar spine 58 02/16/16 Completed Ultrasound 59 02/16/16 Completed Ultrasound 60 02/16/16 Completed Laminectomy, lumbar 61 02/02/16 Co mpleted CXR - Chest X-ray 62 02/01/16 Comp leted MRI of lumbar spine 63 01/07/16 Co mpleted MRI of pelvis 64 01/07/16 Complete d Spine X-ray 65 01/05/[address] of head without contrast 26-MAY-2015 17:31:05<$> 66 10/20/15 Compl eted X-ray of abdomen 67 10/20/15 Compl eted Mammogram - screening 68 09/20/15 Completed Diabetic eye exam 08/18/15 Complet ed Colonoscopy 69 05/31/15 Completed Mammogram 70 09/18/14 Completed Cardiac catheterization 71 10/04/04 Completed colonoscopy 2004 Completed Colonoscopy 72 Completed Laparoscopy Completed KARIN - Total abdominal hysterectomy 73 Completed Thyroid Ablation Complete d Tonsillectomy Completed [place] Teeth Completed 1IMPRESSION: No active disease in chest. 2IMPRESSION: No pulmonary embolism. 3No acute abdominal or pelvic process. Mildly distended gallbladder without surrounding inflammation. 4No acute process. 51. No acute intra-abdominal or intrapelvic abnormality. 2. Unchanged gallbladder distention. 3. No bowel obstruction or bowel wall thickening. Normal appendix. 6IMPRESSION: No active disease in the chest. 7IMPRESSION: 1.No acute infectious or inflammatory findings are identified in the abdomen or pelvis. 2.The gallbladder is distended. Correlate with clinical and aboratory findings. 3.Additional findings as above. 8IMPRESSION: 1.There is no evidence of pulmonary embolus in the main, lobar or segmental pulmonary arteries. 2.There is no airspace consolidation or pleural effusion. 3.Additional findings as above 9IMPRESSION: 1.Moderate gallbladder distention. However, no gallstones or sonographic Adrian sign. Therefore, acute cholecystitis is considered unlikely. If clinically indicated, a hepatobiliary scan could be obtained. 2.No biliary ductal dilatation. 10Impression: No acute process. 11Impression: No acute intracranial findings. Several old lacunar infarcts within the left thalamus and the basal ganglia. 12No acute process 13Dual Femur Normal 1.4 Left forearm Normal 1.0 10-year probability of fracture Major osteoporotic 6.3% Hip 0.2% Population [place] Based on Dual Femur (right) neck 14IMPRESSION: ACR BI-RADS CATEGORY 2: BENIGN There is no mammographic evidence of malignancy. A 1 year screening mammogram is recommended (10/13/22). The patient greg receive written notification of the results. 151. No bowel wall thickening or obstruction. 2. Colonic diverticulosis. No evidence for acute diverticulitis. 3. Punctate calcifications within the pancreas, unchanged. This is consistent with chronic pancreatitis. No evidence for acute pancreatitis. 4. Normal appendix. 5. Moderate well-formed stool within the colon with a large stool ball within the rectum. 16no acute process 17No acute cardiopulmonary disease. 18impression: no acute process 191. No pulmonary emboli 2. Mild bilateral ateletasis with air trapping. 3. No bowel obstruction or bowel wall thickening Normal appendix. 4. Colonic diverticulosis. 5. Additional findings. 201.5 cm cyst of the inferior pole left kidney. 21impression: 1. no pulmonary emboli 2. mild bilateral atelectasis with air trapping 3. no bowel obstruction or bowel wall thickening. normal appendix 4. colonic diverticulosis 5. additional findings within the report 22no DVT within the right or left lower extremity 23no acute cadiopulmonary findings 24The entire examined colon is normal. No specimens collected. Repeat in 5 years. 251. No acute intraabdominal or pelvic findings. 2. No evidence of bowel obstruction. No evidence of free air. 3. Normal appendix. No evidence of acute diverticulitis. 26IMPRESSION: No cholelithiasis or biliary ductal dialation. 27No evidence of bowel obstruction 28Negative. 291. No aneurysm, dessection, high grade stenosis or proximal branch occlusion. 2 Unchanged mild to moderate narrowing of the left carotid terminus with mild multifocal narrowing of the bilateral posterior cerebral arteries. 30No acute cardiopulmonary finings. No change in appearance of the chest 31No acute intracranial abnormality. Age related atrophy and chronic small vessel change. 32No acute process. 331. There is no hemorrhage, mass effect, or evidence of acute territorial ischemia by CT criteria onthis angiographic phase examination. 2. Unremarkable CT angiogram of the brain. 3. Unremarkable CT angiogram of the neck. 341. Normal LV size, sigmoid septum 2. LVEF 65-70% . No regional wall motion abnormalities 3. Normal RV size and function 4. Grade 1 diastolic dysfunction 5. Borderline aortic root dilitation (3.8) 6. Compared with prior study on 03/22/18. No significant changes 351. Punctate 3 mm hyperintense focus within the periventricular left temporal lobe on the diffusion-weighted sequence. Correlation with ADC map is difficult given small size. This is equivocal for a punctate acute infarct. 2. No acute intracranial hemorrhage or mass effect. 3. No intracranial mass or pathologic enhancement. 36No acute intracranial findings. 37No acute intracranial findings. 38There is no mammographic evidence of malignancy. A 1 year screening mammogram is recommended. The patient will receive written notification of the results. 39right helical rim 401. No active disease in the chest. 2. Nonobstructive abdominal bowel gas pattern noting moderate constipation 41Impression: postsurgical changes the L4-5 and L5-S1 levels. There is soft tissue surrounding the thecal sac and left L5 nerve root at the L4-5 level. There is mild L5 nerve root edema. While nonspecific, the soft tissue likely represents postsurgical epidural fibrosis. 42impression: Postsurgical changes the L4-5 and L5-S1 levels. There is soft tissue surrounding the thecal sac and left L5 nerve root at the L4-5 level. There is soft tissue surrounding the thecal sac and left S1 nerve root at the L5-S1 level. There is mild L5 nerve root edema. While nonspecific, the soft tissue likely represents postsurgical epidural fibrosis. 43Impression: Post surgical changes. No acute findings. 44Impression: postsurgical changes. No acute findings 45Impression: There is no sonographic evidence of deep venous thrombosis identified in the left lowerextremity. 46chest and abdomen there is no aneurysm or dissection involving the thoracic or abdominal aorta there is mild ectasia of the ascending thoraic aorta which measures up to 3.7cm there is no evidence of pulminary embolus in the main, lobar, or segmental pulmonary arteries ther is no airspace consolidation or pleural effiusion ther is a 3mm left apical pulmonary nodule. this can be followed if clinically warrented Unremarkable CT angiogram of the abdominal aorta and its major branches there are no acture infectious or inflammatory findings in the abdomen or pelvis mild colonic diverticulosis without CT evidence of acute diverticulitis 47Impression: There is no aneurysm or dissection involving the thoracic or abdominal aorta. There is mild ectasia of the ascending thoracic aorta which measures up to 3.7 cm. There is no evidence of pulmonary embolus in the main, lobar, or segmental pulmonary arteries. There is no airspace consolidation or pleural effusion. There is a 3 mm left apical pulmonary nodule. This can be followed if clinically warranted. See below. Unremarkable Ct angiogram of the abdominal aorta and its major branches. There are no acute infectious or inflammatory findings in the abdomen or pelvis. Mild colonic diverticulosis without Ct evidence of acute diverticulitis. Additional findings as above. 48left knee Degenerative changes most pronounced the patellofemoral joint. No acute fx are visulized. 49Hospitalized. 50Degenerative change Mild soft tissue edema. 51No acute process. Chronic changes as noted. 521. Very limited study diagnostically due to severe patient motion. 2. Moderate chronic small vessel change. 3. No acute process No change from the prior exam. 53No acute intracranial findings. 54No DVT within the right or left lower extremity. 551. Severely motion degraded examination. 2. There are interval postoperative changes from L4 to S1 spinal fusion as above. 3. There is minimal protrusion of the disc spaccer at L4-L5. This does not cause significant acquired compromise of the central canal. 4. There is questionable abnormal soft tissue/materal present involving the left lateral recess andthe left aspect of the central canal at L5 and S1. There is also prominence of the anterior epidural space at this level. This is the axial T1-weighted sequences. This could reflect artifact or possibly granulation tissue. Other etiologies such as hematoma or less likely infection are not excluded.Clinical correlation will be essential. Consider short-term f/u when the patient is better able to remain still with a contrast-enhanced examination for further assessment. 561. Normal left veentricular size and thickness. 2. No focal segmental wall motion abnormalities. Overall normal left ventricular function. LVEF 60% 3. No significant valvular regurgitation or stenosis. 4. Trvial pericardial effusioni (not significant). 57Impression: Status post L4-L5 and L5-S1 discectomies and posterior fusion. The left L4 pedicle screw is along the left aspect of the vertebral body and left pedicle. No acute lumbar spine fracture or subluxation. 58Operative changes consitent with an L4-S1 laminectomy and fusion. Expected soft tissue post-op changes at this level. No evidence for drainable abscess or collection. 59Arterial dopplar U/S left lower extremity Normal study, no evidence of left lower extermity arterial stenosis. 60Left venous dopp lower ext unilat No evidence of left lower extremity DVT 61Lumbar laminectomy and fusion. Alignment is anatomic. 62No active disease. 631) small moderate broad-based central disc protrusion at the L4-5 level. 2) Asymmetric soft tissue density in the region of the left lateral recess. This likely represents either an edematous left L5 nerve root or a disc fragment abutting the left L5 nerve root. 641) L4-5 disc protusion 2) No evidence of occult fracture 3) Sigmoid diverticulosis 651. No acute bony abnormality is seen involving the lumbosacral spine. 2. Osteopenia and lumbosacral spondylosis as above. 3. Constipation 4. An 11mm calcification is again seen projecting over the right upper quadrant. 66No acute findings. 671. No evidence of bowel obstruction. No evidence of free air. 2. Nonspecific 1 cm right upper quadrant calcification. 68There is no mammoraphic evidence of malignancy. A 1 year screening mammogram is recommended. The patient will receive written notification of the results. 69Entire examined colon is normal. No speicmens collected. Repeat colonoscopy in 5 years of surveillance. 70Normal 71WNL 10:29 KARLA Kerr MD, Juan both grandparents had coon cancer. No 1st degree relative with colon cancer. Pt prefer to have colon cancer every 10 years. 06/09/2010 19:17 SAMANTHA Kerr MD, Andry 06/2010: normal. FHx of colon cancer. repeat in 5 years 73for bleedng Vital Signs Most recent to oldest [Reference Range]: 1 Patient Weight 78.1 kg (10/08/24 12:54 PM) Heart Rate 112 bpm (10/08/24 12:54 PM) Respiratory Rate 18 br/min (10/08/24 12:54 PM) Blood Pressure 126/70mmHg (10/08/24 12:54 PM) Social History Social History Type Response Smoking Status Never smoked cigaret abdi Sex Female Sex Representation Female (finding) FCM Outpt Note * MD Kerr Juan: PERFORM Event Display: FCM Outpt Note Authored Date: [id number] Chief Complaint f/u ER visit ([facility]) for elevated BS & abd pain - patient denies BS running high or abd pain. States her BS are running around 100. History of Present Illness Has been to ER for high BS associated with abd pain and nausea and vomiting x 3 times over the past3 months. The last ERvisit was 09/26/2024 for abd pain with nausea and vomiting and home BS over 400. labs unremarkable including CBC, CMP, lipase, tropI and UA,with BS 327 initially then trended down to 172 with just IVF. She did not receiveinsulin in ER. Abd/pelvis CT wasunremarkable. Was R x'ed zofranat discharge.abd pain, nausea and vomiting. Has been seeing endo for FDM management every 3months. Was instructed to call endo first beforegoing to ER for sebastian BS. Also sees me every 3 months - coordinating with endo,in an attempt to decrease pt's freqER visit. It has not made much difference so far though. pt stated that she tends to have abd pain wit nausea and vomiting in evenings. Usually eats only 2 meals : lunchandsupper. Supper is usually the larger meal. has endo f/ulater this month. Takes lantus 16units in am. Home BS100's. No hypo or hyperglycemia episode since ER visit. has a partner living with her. daughters check on her regularly. 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 sees ENDOevery 3 months. No hypoglycemia. most recent A1C was 2 months ago,"it was good". sees psychiatristevery 2 months. depression andanxiety controlled. Physical Exam Vitals & Measurements HR:112(Monitored) RR:18 BP:126/70 SpO2:93% WT:78.100kg(Dosing) WT:78.1kg PHQ2 Data(Data Documented on:10/08/2024 12:54) Emotional health assessment NEGATIVE GENERAL: A&Ox3. No acute distress. Affect and speech appropriate. HEENT: PERRLA, EOMI, Conjunctivae clear. NECK: Supple, No lymphadenopathy. No carotid bruits. HEART: RRR, normal S1, S2. No murmurs, gallops or clicks. LUNGS: breathing not labored, breathing sound clear, breathing sound equal bilaterally, no rales, no wheezing. ABDOMEN: Positive bowel sound, soft, nontender, non-distended. No hepatosplenomegaly noted. No mass. EXTREMITIES: No edema, clubbing or cyanosis. Assessment/Plan 1.Hyperglycemia advised pt to f/u with endo and call endo beforegoing to ER. 2.DIABETES MELLITUS advised pt to f/u with endo and call endo beforegoing to ER. 3.DEPRESSION Status: chronic, controlled. Data: EMR. Goal: controlled and stable. Plan: continue current treatment plan. 4.Nausea & vomiting acuteand recurrent.etiology undifferentiated.Butsuspect gastroparesis. Advised pt decrease supper size, and eat a small breakfast - small and ferqmeals. Rx zofran forprnuse. BTO as scheduled 10/29/2024. Attestation Pre-visit plannin min Hpvc-cg-ersc visit:20 min Post-visit:0 min Total visit time: 30 min Problem List/Past Medical History Ongoing Abnormal leg movement Ambulatory dysfunction ANXIETY DEPRESSION DIABETES MELLITUS Diverticulosis of colon| Status: Inactive Fatty liver Foot drop Gout| Status: Inactive Ocular migraine| Status: Inactive Panic attacks Sinus tachycardia Status post CVA Transient cerebral ischemia UNSPECIFIED HYPOTHYROIDISM VITAMIN D DEFICIENCY Weight disorder Resolved Acute CVA (cerebrovascular accident) Acute paronychia of toe Allergy to statin medication ANEMIA Colonoscopy Constipation Falls HYPERTENSION Low back pain Neuropathy, peripheral Obesity Peptic ulcer disease Radiculopathy Rhus dermatitis Toenail fungus Weakness Procedure/Surgical History Cholecystectomy| Service Date: X-ray| Service Date: 04/15/2023 angiography of chest with contrast| Service Date: 04/15/2023 of abdomen and pelvis with intravenous contrast| Service Date: 02/25/2023t X-ray| Service Date: 10/08/2022 of abdomen and pelvis without contrast| Service Date: 10/08/2022t X-ray| Service Date: 02/19/2023CT of chest with contrast| Service Date: 09/24/2022US scan of gallbladder| Service Date: 3CT of abdomen and pelvis with contrast| Service Date: 09/24/2022hest X-ray| Service Date: 04/08/2022MRI of brain| Service Date: 2CXR - Chest X-ray| Service Date: 11/20/2021one density finding|Service Date: 10/12/2021creening mammogram of bilateral breasts| Service Date: 2CT of abdomen and pelvis| Service Date: 09/08/2021hest X-ray| Service Date: 2CXR - Chest X-ray| Service Date: 08/03/2021T of abdomen and pelvis| Service Date: 03/24/2021t scan abdomen/pelvis| Service Date: 03/24/2021hest X-ray| Service Date: 03/24/2021Venous doppler ultrasonography bilat lower extremity| Service Date: 06/17/2020Chest X-ray| Service Date: 06/13/2020Colonoscopy| Service Date: 04/28/2020CT of abdomen and pelvis| Service Date: 02/13/2020US abdominal scan| Service Date: 11/01/2019KUB X-ray| Service Date: 10/30/2019CXR - Chest X-ray| Service Date: 10/01/2019CXR - Chest X-ray| Service Date: 06/06/2019CT angiography of head and neck| Service Date: 06/06/2019CXR - Chest X-ray| Service Date: 02/25/2019CT of head| Service Date: 02/25/2019Echocardiogram| Service Date: 08/29/2018MRI of brain with contrast| Service Date: 08/29/2018CT angiogram of head, neck and thorax| Service Date: 08/29/2018CT of head| Service Date: 08/28/2018CT of head| Service Date: 08/28/2018Mammogram - screening| Service Date: 018Shave biopsy| Service Date: 06/17/2018CXR - Chest X-ray| Service Date: 09/11/2016MRI oflumbar spine| Service Date: 08/02/2016X-ray of lumbar spine and sacroiliac joints| Service Date:08/02/2016X-ray of lumbar spine and sacroiliac joints| Service Date: 08/02/2016MRI of lumbar spine| Service Date: 08/02/2016Venous doppler ultrasonography| Service Date: 08/01/2016CT angio gram of the chest, abdomen, and pelvis combo| Service Date: 07/31/2016CT angiogram of pelvis| Service Date: 07/31/2016Ultrasound,biliary| Service Date: 07/28/2016X-ray| Service Date: 07/27/2016Overdose--meloxicam| Service Date: 07/26/2016Knee X-ray| Service Date: 06/13/2016Tibia and fibula X-ray| Service Date: 06/13/2016MRI of brain and brain stem| Service Date: 03/25/2016CT of head| Service Date: 03/24/2016MRI of lumbar spine| Service Date: 03/23/2016Doppler bilateral lower ext.| Service Date: 03/23/2016Echocardiogram| Service Date: 03/22/2016X-ray of L. spine| Service Date: 03/02/2016Ultrasound| Service Date: 02/16/2016Ultrasound| Service Date: 02/16/2016Lumbar spine| Service Date: 02/16/2016Laminectomy, lumbar| Service Date: 02/02/2016CXR - Chest X-ray| Service Date: 02/01/2016MRI of pelvis| Service Date: 01/07/2016MRI of lumbar spine| Service Date: 01/07/2016Spine X-ray| Service Date: 01/05/2016CT of head without contrast 26-MAY-2015 17:31:05<$>| Service Date: 10/20/2015 X-ray of abdomen| Service Date: 10/20/2015Mammogram - screening| Service Date: 09/20/2015Diabetic eye exam| Service Date: 08/18/2015Colonoscopy| Service Date: 05/31/2015Mammogram| Service Date: 09/18/2014Cardiac catheterization| Service Date: 10/04/2004colonoscopy| Service Date: 2005Thyroid AblationWisdom TeethTonsillectomyLaparoscopyTAH - Total abdominal hysterectomyColonoscopy Medications aspirin(aspirin 81 mg oral delayed release tablet), 81 mg= 1 tab, PO, Daily atorvastatin(atorvastatin 10 mg oral tablet), 10 mg= 1 tab, PO, Daily brexpiprazole(Rexulti 1 mg oral tablet) canagliflozin(Invokana 100 mg oral tablet) insulin glargine(Lantus Solostar Pen 100 units/mL subcutaneous solution), See Instructions, 3 refills insulin lispro(HumaLOG KwikPen 100 units/mL injectable solution), 3 unit, subQ, ac levothyroxine(levothyroxine 112 mcg (0.112 mg) oral tablet), 112 mcg= 1 tab, PO, Daily metFORMIN(metFORMIN 1000 mg oral tablet), See Instructions mirtazapine(mirtazapine 30 mg oral tablet), 30 mg= 1 tab, PO, qhs, 11 refills ondansetron(Zofran 4 mg oral tablet), 4 mg= 1 tab, PO, q8h, PRN, 5 refills polyethylene glycol 3350(MiraLax oral powder for reconstitution), 17 g, PO, Daily, 3 refills syringe needles(BD needle Ultra-Fine III Mini Pen 31G x 5mm), See Instructions, 11 refills unlisted medication, See Instructions, 3 refills vortioxetine(Trintellix 10 mg oral tablet), See Instructions Allergies Aldactazidecramps Levothroid"didn't work" Prevacidunknown Prinivilcough Zocorleg pain doxycyclinerash Social History Smoking Status Never smoked cigarettes Alcohol - Denies Alcohol Use Exercise - Regular exercise Exercise type:Walking Tobacco - Denies Tobacco Use Intake (IView) Smoking History Cigarette smoker: Never smoked cigarettes Tobacco Product Use: Never used other tobacco products Family History Charcot Sally Tooth disease, type 2..: Brother. Colon cancer......: Mother, MGM and PGF. Diabetes: Mother. Heart attack: Mother. Hypothyroidism: Mother. Myelodysplastic syndrome: Father. Uterine cancer: Mother. Health Status Family Member(s) Immunizations Vaccine Date Status influenza virus vaccine, inactivated 06/26/2024 Given influenza virus vaccine, inactivated 05/02/2023 Given pneumococcal 23-valent vaccine 08/24/2022 Given pneumococcal 13-valent vaccine 09/21/2021 Given influenza virus vaccine, inactivated 05/19/2021 Given influenza virus vaccine, inactivated 05/27/2020 Given influenza virus vaccine, inactivated 05/05/2019 Given Comments : System Down influenza virus vaccine, inactivated 06/28/2018 Given tetanus/diphtheria/pertuss, acel (Tdap) 02/2018 Recorded influenza virus vaccine, inactivated 04/14/2016 Given influenza virus vaccine, inactivated 07/16/2015 Given pneumococcal 13-valent vaccine 02/08/2015 Given influenza virus vaccine, inactivated 04/01/2012 Given pneumococcal 23-valent vaccine 05/28/2004 Recorded pneumococcal 23-valent vaccine 12/19/2002 Recorded Recommendations Health Maintenance Pending(in the next year) OverDue Falls Plan of Care due03/25/22and every 1year Kidney Health Evaluation due01/11/23and every 366day Medicare Annual Wellness Visit due08/24/23and every 1year Breast Cancer Screening due10/13/23and every 731day Due Diabetes Management A1c due08/11/24and every 366day Adult Social Determinants of Health Screening due10/08/24Unknown Frequency Diabetes Nephropathy Management due10/08/24Unknown Frequency Diabetic Eye Exam due10/08/24Unknown Frequency Seasonal COVID 19 Vaccine due10/08/24Unknown Frequency Shingles Vaccine due10/08/24One-time only Due In Future Adult Influenza Vaccine not due until02/03/25and every 1year Satisfied(in the past 1 year) Satisfied Adult Influenza Vaccine on06/26/24.Satisfied by OSCAR Heredia Deiadra Body Mass Index on06/05/24.Satisfied by BHAVNA Adame Kirsten Electronic Signature on File Electronically Reviewed/Signed by: Andry Kerr MD Author Signature Dt/Tm:10/08/2024 01:25 PM Department of Family Medicine JAlanis Patient Care team information Care Team Personnel Name: Mike RENEE MD, Tim Montano Position: Physician - Family Med Member Role: Lifetime Relationship Address: [address] [place]: [phone] Name: DO Potts [place] J Position: Physician - Family Med Member Role: Lifetime Relationship Address: [address] [facility] [facility] [address] [place] [address] Telecom: [phone] Name: MD Kerr Juan Position: Physician - Family Med Member Role: Primary Care Provider Address: [address] [place] [address] Telecom: [phone] Care Team Related Persons Name: ANNIE MINER Insurance Providers Guarantor name: JONATHAN TOVAR Health Plan Information #: 3 Payer: [place] [employer] Member Number: [id number] Policy Number: NA Group Number: NA Health Plan Information #: 1 Payer: [employer] Member Number: [id number] Policy Number: NA Group Number: [id number] Health Plan Information #: 2 Payer: [employer] Member Number: [id number] Policy Number: NA Group Number: NA Health Plan Information #: 4 Payer: MEDICARE Member Number: NA Policy Number: NA Group Number: NA
[2024-10-16] MEDS: LEVOTHYROXINE SODIUM 112 MCG TABLET PO SCH (05:46)
[2024-10-16 06:44] LABS: Basophils # (auto) 0.02 K/uL (0.00-0.20); Basophils % (auto) 0.3 %; Eosinophils # (auto) 0.13 K/uL (0.00-0.50); Eosinophils % (auto) 1.7 %; Hematocrit (blood only) 38.6 % (37.0-47.0); Hemoglobin 12.6 g/dl (12.0-16.0); Immature Granulocytes # (auto) 0.02 K/uL (0.01-0.20); Immature Granulocytes % (auto) 0.3 %; Lymphocytes # (auto) 3.02 K/uL (1.20-3.40); Lymphocytes % (auto) 40.6 %; Mean Corpuscular Hemoglobin 29.2 pg (25.0-34.0); Mean Corpuscular Hgb Conc 32.6 g/dL (32.0-36.0); Mean Corpuscular Volume 89.4 fL (80.0-100.0); Mean Platelet Volume 10.2 fL (9.4-12.4); Monocytes # (auto) 0.54 K/uL (0.11-0.59); Monocytes % (auto) 7.3 %; Neutrophils % (auto) 49.8 %; Platelet Count 224 K/uL (130-400); RDW Coefficient of Variation 13.4 % (11.5-14.5); RDW Standard Deviation 44.1 fL (36.4-46.3); Red Blood Count 4.32 M/uL (4.20-5.40); White Blood Count 7.43 K/ul (4.8-10.8)
[2024-10-16 07:08] LABS: BUN Creatinine Ratio 22.7 (10-20); Calcium 9.6 mg/dl (8.6-10.3); Chol HDL Ratio 1.9 (0-5); Creatinine Clr Calc Pharmacy 80.1 ml/min; Potassium 3.8 mmol/L (3.5-5.1)
[2024-10-16 07:58] VITALS: TEMP 97.7
[2024-10-16] MEDS: ASPIRIN 81 MG ECTAB PO SCH (08:07)
[2024-10-16] MEDS: CLOPIDOGREL BISULFATE 75 MG TAB PO SCH (08:07)
[2024-10-16] MEDS: LANTUS PER UNIT CHARGE SQ SCH (08:08)
[2024-10-16] MEDS: ACETAMINOPHEN 325 MG TAB PO PRN (09:52)
[2024-10-16 09:57] LABS: Estimated Average Glucose 186 mg/dl; Hemoglobin A1C 8.1 % (4.5-5.6)
--- NOTE | 2024-10-16 11:42 | Psychiatric Consultation ---
Date of Consultation October 16, 2024 Impression / Recommendations Impression 69 y/o F h/o CVD, GERD, noncompliance to ASA, h/o CVA who presents with new onset dizziness, LE weakness, speech dysfunction. Psychiatry consulted for echolalia concerns and psychotropic adverse effects. Patient does not appear to be in a major mood or psychotic episode. Has been adherent to her psychiatric medications with good control over symptoms. No acute suicidality or safety concerns. Presentation not consistent with excess serotonergic activity and unlikely medications at current doses and profile will contribute towards this. Recommend to continue. Speech impairments, weakness improving. Labs reviewed: CBC, free T4 unremarkable; blood glucose elevated and trending down; hemoglobin A1c of 8.1; TSH low; UA positive for glucose. Overall, I spent a total of 80 minutes with this case including review of chart records, nursing report, review of lab work, direct evaluation of the patient at bedside, counseling the patient, discussion of the patient with the hospitalist provider, discussion with the psychiatric liaison during clinical rounds, and documentation in the electronic health record. (1) Major depressive disorder in remission: (2) Stroke-like symptoms: (3) H/O: stroke: (4) Hyperglycemia: Plan Continue home psychiatric medications No indication for inpatient psychiatry admission No indication for bedside sitter or suicide precautions Psych History Identifying Data 69 y/o F h/o CVD, GERD, noncompliance to ASA, h/o CVA who presents with new onset dizziness, LE weakness, speech dysfunction. Psychiatry consulted for echolalia concerns and psychotropic adverse effects. Chief Complaint "I felt dizzy, the room was spinning" History of Present Illness The patient reports feeling dizzy at home like the "room spinning". This happened around midnight of 10/14/2024. she denies having a fall. Complains of associated lower extremity weakness however was still able to walk with assistance. was confused at the time. Reports an inability to speak and was repeating words. Says that she was able to understand what was being said. Denies loss of consciousness Or incontinence. Reports history of stroke 8 years ago. Says now her speech is improved and is no longer confused. alert and oriented to person/place/year/month/situation. Slight speech delay however is articulate on interview. She reports recent medication change in diabetes medication month ago. Psychiatric medications have been consistent and she reports no worsening of depression. Reports situational anxiety whenever she gets bad news. Has been sleeping and eating well and enjoying activities. Complains of chronic low energy. Denies excess guilt. Denies suicidal ideation. Denies auditory visualizations. Her family brought her medications in. No further concerns. Allergies Allergy/AdvReac Type Severity Reaction Status Date / Time cisapride Allergy Intermediate Hives Verified 07/22/24 13:17 doxycycline Allergy Intermediate Rash Verified 07/22/24 13:17 gadobutrol [From Gadavist] Allergy Intermediate Hives Verified 07/22/24 13:17 lansoprazole Allergy Intermediate Hives Verified 07/22/24 13:17 Penicillins Allergy Intermediate Rash Verified 07/22/24 13:17 tetracycline Allergy Intermediate Rash Verified 07/22/24 13:17 Home Medications Medication Instructions Recorded Confirmed Type mirtazapine 30 mg tablet 30 mg PO HS 05/04/18 10/15/24 History aspirin 81 mg tablet,delayed 81 mg PO QAM #30 tabs 03/02/19 10/15/24 Rx release (Ecotrin Low Strength) vortioxetine 20 mg tablet 20 mg PO QPM 06/06/19 10/15/24 History (Trintellix) flash glucose sensor (FreeStyle 06/16/21 10/15/24 History Jose Francisco 14 Day Sensor kit) pen needle, diabetic 32 gauge x #100 ea 09/12/23 10/15/24 Rx 5/32" (BD Ultra-Fine Flores Pen Needle) brexpiprazole 0.5 mg tablet 0.5 mg PO HS 11/06/23 10/15/24 History (Rexulti) metformin 1,000 mg tablet 1,000 mg PO BID #180 tabs 02/21/24 10/15/24 Rx acetone (urine) test (Ketostix #25 ea 03/06/24 10/15/24 Rx strips) atorvastatin 20 mg tablet 20 mg PO QPM #90 tabs 04/22/24 10/15/24 Rx canagliflozin 100 mg tablet 100 mg PO QAM #30 tabs 06/09/24 10/15/24 Rx (Invokana) levothyroxine 112 mcg tablet 112 mcg PO DAILYBB #90 tabs 06/30/24 10/15/24 Rx cholecalciferol (vitamin D3) 25 25 mcg PO DAILY #30 caps 07/22/24 10/15/24 Rx mcg (1,000 unit) capsule sitagliptin phosphate 50 mg tablet 50 mg PO DAILY #30 tabs 07/22/24 10/15/24 Rx (Januvia) insulin glargine 100 unit/mL (3 16 unit (0.16 mL) subcut QAM #15 mL 07/25/24 10/15/24 Rx mL) subcutaneous pen (Lantus Solostar U-100 Insulin) insulin lispro 100 unit/mL 6 unit (0.06 mL) subcut BID #15 mL 07/25/24 10/15/24 Rx subcutaneous pen (Humalog KwikPen (U-100) Insulin) ondansetron HCl 4 mg tablet 4 mg PO UD PRN Nausea 10/15/24 10/15/24 History Patient History Medical History Sinus tachycardia Hyperglycemia due to type 2 diabetes mellitus Restless legs Atrial tachycardia Elevated lactic acid level Hypothyroidism Elevated lactic acid level Hyperglycemia Chest pain Hyperglycemia Abdominal pain Lactic acidemia Abdominal pain Diarrhea Hypoglycemia History of anemia Gout Cervical dysplasia Diabetic peripheral neuropathy H/O: stroke Cerebellar infarct Acute CVA (cerebrovascular accident) Altered mental status Vertigo Hypothyroidism Sensory ataxia Polyneuropathy Major depressive disorder Lumbosacral radiculopathy Hyperlipidemia Encounter for routine gynecological examination Diabetic peripheral neuropathy 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 CVA (cerebral vascular accident) Chronic skin ulcer of right ear Depression with anxiety T2DM (type 2 diabetes mellitus) Weakness TIA (transient ischemic attack) Neurological deficit present Hyperglycemia Dizziness Wound, open, ear, external with complication Suicide attempt Major depressive disorder, recurrent episode, severe with anxious distress Lumbar stenosis with neurogenic claudication Lower extremity weakness Intractable low back pain Hypotension Hypokalemia Hypertension HNP (herniated nucleus pulposus), lumbar Fecal impaction Dyslipidemia DKA (diabetic ketoacidoses) Constipation Chest pain Anxiety Altered mental status Acute gastritis Diabetes Surgical History Hx laparoscopic cholecystectomy (08/16/23) Robotic Laparoscopic Cholecystectomy - Stephen Talley, DO, FACS History of total abdominal hysterectomy H/O laparoscopy Status post hysteroscopic ablation of endometrium H/O dilation and curettage History of dental surgery History of colposcopy with cervical biopsy Previous back surgery History of tonsillectomy Status post lumbar spine surgery for decompression of spinal cord H/O cardiac catheterization History of hysterectomy Family History Mother , in her early 70s of some sort of cancer (patient not clear if it was breast cancer) Breast cancer Diabetes Grandmother Breast cancer Grandmother Breast cancer Unknown Colon cancer Father , Diet it age 78 of a myelodysplastic syndrome. He also had Equfbdl-Xqirg-Ziekk disease. Myelodysplasia (myelodysplastic syndrome) Tzijtvo-Qiomk-Lzqva disease Heart disease Brother Hcgsjto-Vbohv-Qwwch disease Other No pertinent family history in first degree relatives Social History Smoking Status: Never smoker Second Hand Exposure: No; Do You Dip or Chew Tobacco: No; Tobacco Cessation Education Requested by Patient: No Hx Alcohol Use: No Hx Substance Use: No Preferred Language: [place]se Communication Ability: Effective Visual Impairment: No Limitations Customs Appraiser Required: No Beliefs That Will Affect Care: None marital status: significant other Current Living Situation: Significant Other Current Living Situation Comment: lives w/ boyfriend current occupational status: disabled current occupation: Patient used to work at [employer] for 23 years and then [employer] How many Children do You have: 2 Other Information That Helps Us Care for You: No other: Retired on disability from her back 3 years ago Feels Safe at Home: Yes Safety Concerns: Feels Safe At This Time Assistive Devices: Walker Physical Exam Mental Examination: Appearance: Disheveled Eye Contact: Maintains Eye Contact Motor Behavior: Unremarkable Speech: Soft and Delayed Mood: Euthymic and Calm Affect: Appropriate and Congruent Thought Process: Intact and Linear Thought Content: Intact Hallucinations: None Insight: Fair Judgement: Fair Vital Signs (Past 24 Hours): Last Vital Signs Temp 36.5 C 10/16/24 07:57 Pulse 82 10/16/24 07:57 Resp 19 10/16/24 07:57 BP 147/87 H 10/16/24 07:57 Pulse Ox 94 10/16/24 07:57 O2 Del Method Room Air 10/16/24 07:57 Results & Data (PSY) Medications Administered Acetaminophen (Acetaminophen 325 Mg Tab) 650 mg PO Q6H PRN PRN Reason: Pain Stop: 11/15/24 09:41 Last Admin: 10/16/24 09:52 Dose: 650 mg Documented By: TAE Aspirin (Aspirin 81 Mg Ectab) 81 mg PO QAM [facility] Stop: 11/15/24 08:59 Last Admin: 10/16/24 08:07 Dose: 81 mg Documented By: TAE Atorvastatin Calcium (Atorvastatin 40 Mg Tab) 40 mg PO QPM [facility] Stop: 11/14/24 21:07 Last Admin: 10/15/24 21:38 Dose: 40 mg Documented By: LMP Clopidogrel Bisulfate (Clopidogrel Bisulfate 75 Mg Tab) 75 mg PO QAM [facility] Stop: 11/15/24 08:59 Last Admin: 10/16/24 08:07 Dose: 75 mg Documented By: TAE Insulin Aspart (Insulin Aspart Per Unit Charge) 0 units SC ACHS [facility] Stop: 11/14/24 21:07 Last Admin: 10/16/24 08:08 Dose: 3 units Documented By: TAE Co-signed By: RACHEL Admin: 10/15/24 22:01 Dose: 4 units Documented By: OMER Co-signed By: ISRAEL Insulin Glargine (Lantus Per Unit Charge) 8 units SQ BID [facility] Stop: 11/15/24 08:59 Last Admin: 10/16/24 08:08 Dose: 8 units Documented By: TAE Co-signed By: RACHEL Levothyroxine Sodium (Levothyroxine Sodium 112 Mcg Tablet) 112 mcg PO DAILYBB [facility] Stop: 11/15/24 06:29 Last Admin: 10/16/24 05:46 Dose: 112 mcg Documented By: OMER Lorazepam (Lorazepam 0.5 Mg Tab) 0.5 mg PO BID PRN PRN Reason: Anxiety Stop: 11/14/24 20:59 Last Admin: 10/15/24 19:31 Dose: 0.5 mg Documented By: ETHAN Mirtazapine (Mirtazapine Tab 15 Mg Tab) 30 mg PO HS [facility] Stop: 11/14/24 21:07 Last Admin: 10/15/24 21:38 Dose: 30 mg Documented By: OMER [place] [address] IN/OBS CONSULT LVL 5,80M Patient Type New History Detailed Exam Detailed Medical Decision Making Moderate Complexity Diagnoses Major depressive disorder in remission F32.5 Stroke-like symptoms R29.90 H/O: stroke Z86.73 Hyperglycemia R73.9
[2024-10-16 11:53] VITALS: BP 155/95; PULSE 85; RESP 20
--- NOTE | 2024-10-16 15:26 | Discharge Summary ---
Discharge Summary Date of Service October 16, 2024 Principal Dx & Hospital Course #1 = Principal Diagnosis (1) Expressive aphasia: (2) Stroke-like symptoms: (3) H/O: stroke: (4) Diabetes: (5) Dizziness: Plan Acute onset of dizziness upon waking the morning of 10/15. Patient coming in for stroke workup.MRI did not show evidence of acute intracranial pathology CTAhead and neck are without large vessel occlusion, CThead without acute findings. Patient was evaluated as a stroke alert but was not a TNKase candidate due to last known well evening prior. She was given a full dose aspirin in the ER. She does not have a positive Fozia-Hallpike. She did have some sinus tachycardia which resolved. CTA did not show any acute findings/PE, ascending aortic ectasia up to 4.3 cm was noted and recommended for serial outpatient follow-up On subsequent evaluation symptoms did improve but was noted to have some restlessness/concern for akathisia and echolalia. She was on Rexulti, Trintellix, and mirtazapine. Psychiatry was consulted for evaluation. Overall was not felt to be consistent with serotonergic dysregulation. Patient felt improved the following day. Medication adjustments were not recommended. Was seen by PT/OT who recommended home with home health. Differential includes TIA, vertigo versus labyrinthitis. Lower suspicion for medication effect. As TIA cannot be definitively ruled out did increase atorva statin to 40 mg. Due to an ABCD squared score of greater than 4 with increased risk for potential recurrent CVA if this represented a TIA patient was prescribed 3 weeks of DAPT with Plavix. Patient felt comfortable discharged home with improvement of symptoms and was discharged to PCP follow-up. To do as outpatient: 1. Routine follow-up with PCP 2. Outpatientsurveillance follow-up of ascending aortic ectasia up to 4.3 cm 3. Continue Plavix DAPT for 3 weeks then switch to monotherapy Admission HPI Per Admitting Provider Kourtney is a 69-year-old female with PMH of CVD, medication noncompliance, FTT, and GERD. She presented on 10/15 for dizziness that began this morning. Patient reports that she felt fine last night when she went to bed around 11 PM. She then woke up feeling extremely dizzy at rest. He felt like the room was spinning, and attempted to lay down, but she was still experiencing the dizziness. Patient lives with her boyfriend. Patient denies any slurred speech, facial droop, or unilateral deficits. However she had difficulty talking. She reports she would try to talk, but could not get the words out". She does have a history of stroke, but is unsure when this occurred (several years back). She reports that she stopped taking her regular aspirin a couple months ago after she ran out, and thought that she did not need it. Patient reports that she took her other morning medications today; no difficulty swallowing. The only recent change medication was that she was started on a new diabetic medication 2 months ago. She did not start until 3 weeks ago. Patient did have a fall 2 weeks ago, but reports she did not hit her head. Her legs gave out while she was ambulating with a walker, and she fell into a chair. Patient ambulates with walker and cane at baseline. She denies smoking, tobacco use, recent alcohol use. She does report she has a history of vertigo, but it has never occurred like this in the past. Patient is hypertensive 146/86 and tachycardic at 116 bpm at time of admission. ED course: NSS 1000 L IV Ondansetron 4 mg IV ROS: Patient endorses dizziness, lightheadedness, headache, changes in vision (blurry vision), expressive aphasia (gradually resolving, but still present), chest tightness/SOB (resolved), nausea, and chronic neuropathy in the legs. Patient denies fever, chills, night-sweats, syncope, diplopia, neck pain/stiffness, difficulty swallowing, tinnitus, slurred speech, facial droop, unilateral deficits, chest pain, pleuritic CP, cough, abdominal pain, vomiting, diarrhea, burning with urination, blood in the urine/stool, or changes in urinary/bowel habits. Discharge Exam General: A&Ox3. NAD. Cooperative. HEENT: Atraumatic, normocephalic. Vision and hearing grossly intact Pulm: CTAB A&P. -wheezes, -rales, -rhonchi. Symmetrical chest rise. No increased work of breathing. No respiratory distress. Cardiac: RRR, -mrg. Radial pulses intact and symmetrical. Abdominal: Nontender, nondistended, soft. BS present. Extremities: Some restlessness however akathisia seemed improved. No rigidity. No inducible ankle clonus. No hyperreflexia. Skin warm and dry. T[employer] Cord Weaver strength, elbow flexion, hip flexion, ankle dorsi/plantarflexion 5/5 bilaterally Discharge Plan Discharge Items Patient Disposition: Home - Home Health Services Reason For Visit: DIZZINESS, EXPRESSIVE APHASIA Discharge Diagnosis: Vertigo Condition on Discharge: Good Activity: Resume your previous activity Non-emergency contact: Primary Care Provider Call non-emergency contact if: you have any medication questions and your symptoms worsen Follow-up/Referrals: Andry Kerr MD [Primary Care Provider] - Diet: Heart Healthy Addtl Attending Provider Instructions: You are seen in the hospital for evaluation of dizziness and some speech difficulty. Your symptoms improved while in the hospital. You had an MRI which did not show any evidence of stroke. A mini stroke (TIA) cannot be ruled out as it does not leave any evidence on imaging and is within the differential, althou gh felt to be less likely. your case was discussed with psychiatry due to multiple serotonergic medications, your case was not felt to be due to your medications and adjustments were not recommended. You were recommended for outpatient follow-up with your primary care physician. A TIA cannot be completely excluded as this does not show up on any imaging study. You may benefit from an increased dose of your atorvastatin, this has been changed to 40 mg at night. The risk/benefits of treatment with Plavix 3 to 3 weeks were discussed with you. This could potentially protect you from a stroke if your episode was due to a TIA. You have been prescribed 3 weeks of Plavix 75 mg daily. After this you may take aspirin or Plavix alone at the recommendation of your primary care physician If you develop any new or worsening symptoms including fever, chills, sweats, chest pain, chest pressure, difficulty breathing, uncontrolled nausea/vomiting, rash, wheezing, passing out or nearly passing out, bleeding, black/bloody bowel movements, or other new or concerning symptoms please call your primary care physician, or call 911 for re-evaluation in the emergency department if you are very concerned. Pending Studies at Discharge: No Stand-Alone Forms: My [employer], Smoking Cessation Medications and DC Order Prescriptions: New clopidogrel 75 mg Tablet 75 mg PO QAM Qty: 30 0RF Continued (DME) pen needle, diabetic [BD Ultra-Fine Flores Pen Needle] 32 gauge x 5/32" needle See Rx Instructions miscellaneous .MEDSUPPLY Qty: 100 11RF Rx Instructions: Inject insulin 3 x daily metformin 1,000 mg tablet 1,000 mg PO BID Qty: 180 2RF Invokana 100 mg tablet 100 mg PO QAM Qty: 30 1RF levothyroxine 112 mcg tablet 112 mcg PO DAILYBB Qty: 90 3RF insulin glargine [Lantus Solostar U-100 Insulin] 100 unit/mL (3 mL) insulin pen 16 unit subcut QAM Qty: 15 3RF insulin lispro [Humalog KwikPen Insulin] 100 unit/mL insulin pen 6 unit subcut BID MDD 12 units Qty: 15 3RF (DME) FreeStyle Jose Francisco 14 Day Sensor Kit See Rx Instructions .Route Rx Instructions: As directed Januvia 50 mg tablet 50 mg PO DAILY Qty: 30 3RF cholecalciferol (vitamin D3) 25 mcg (1,000 unit) capsule 25 mcg PO DAILY Qty: 30 5RF (DME) Ketostix Strip See Rx Instructions miscellaneous .MEDSUPPLY Qty: 25 2RF Rx Instructions: Test as needed to monitor for ketones in urine aspirin [Ecotrin Low Strength] 81 mg Tablet,Delayed Release (Dr/Ec) 81 mg PO QAM Qty: 30 0RF Trintellix 20 mg tablet 20 mg PO QPM mirtazapine 30 mg tablet 30 mg PO HS Rexulti 0.5 mg tablet 0.5 mg PO HS ondansetron HCl 4 mg tablet 4 mg PO UD PRN (Reason: Nausea) Changed atorvastatin 20 mg tablet 40 mg PO QPM Qty: 90 2RF Discharge Orders: Discharge Order (Routine); Ordered 10/16/24 Ordered By: Tim Mcintyre/Other Patient Handouts: Managing Type 2 Diabetes Admission Data Admit Date/Time: 10/15/24 18:59 Attending Provider: Tim Mckeon Admit Provider: Tim Mckeon Primary Care Provider: Andry Kerr Other Providers: Tim Mckeon; Emily Dean; Stephen Cordero; Sara Frank; Ana Eid; Richard Epperson; Marycruz Bonilla Hospital Stay Data Consultations 10/15/24 18:36 ED Decision to Admit Stat 10/15/24 19:04 Consult Psychiatry Routine Diagnostic Imagining Performed 10/15/24 16:08 CT angio chest PE protocol Stat CT angio head wo/w Stat CT angio neck with con Stat 10/15/24 18:52 MRI Brain [MR brain wo con] Stat Discharge Instructions Given to Patient (Per Discharging Provider) You are seen in the hospital for evaluation of dizziness and some speech difficulty. Your symptoms improved while in the hospital. You had an MRI which did not show any evidence of stroke. A mini stroke (TIA) cannot be ruled out as it does not leave any evidence on imaging and is within the differential, although felt to be less likely. your case was discussed with psychiatry due to multiple serotonergic medications, your case was not felt to be due to your medications and adjustments were not recommended. You were recommended for outpatient follow-up with your primary care physician. A TIA cannot be completely excluded as this does not show up on any imaging study. You may benefit from an increased dose of your atorvastatin, this has been changed to 40 mg at night. The risk/benefits of treatment with Plavix 3 to 3 weeks were discussed with you. This could potentially protect you from a stroke if your episode was due to a TIA. You have been prescribed 3 weeks of Plavix 75 mg daily. After this you may take aspirin or Plavix alone at the recommendation of your primary care physician If you develop any new or worsening symptoms including fever, chills, sweats, chest pain, chest pressure, difficulty breathing, uncontrolled nausea/vomiting, rash, wheezing, passing out or nearly passing out, bleeding, black/bloody bowel movements, or other new or concerning symptoms please call your primary care physician, or call 911 for re-evaluation in the emergency department if you are very concerned. Total Time Total Time Spent Total Time Spent (In Minutes): Time spend day of discharge 40 minutes including direct patient care, documentation, review of labs and images, and coordination of care. Coding Level of Care Code 94617 INP/OBS DISCH >30 MIN Diagnoses Expressive aphasia R47.01 Stroke-like symptoms R29.90 H/O: stroke Z86.73 Diabetes E11.9 Dizziness R42
--- NOTE | 2024-10-16 17:30 | XCELERA ---
[id number]
[2024-10-16] MEDS ORDERED: BREXPIPRAZOLE 0.5 MG PO SCH (21:00)
[2024-10-16] MEDS ORDERED: VORTIOXETINE HYDROBROMIDE 20 MG PO SCH (21:00)
--- NOTE | 2024-10-17 06:01 | Electrocardiogram Report ---
Test Reason : Blood Pressure : */* mmHG Vent. Rate : 111 BPM Atrial Rate : 111 BPM P-R Int : 142 ms QRS Dur : 72 ms QT Int : 328 ms P-R-T Axes : 29 7 26 degrees QTcB Int : 446 ms Poor data quality, interpretation may be adversely affected Sinus tachycardia Possible Inferior infarct , age undetermined Abnormal ECG When compared with ECG of 26-Sep-2024 17:22, Borderline criteria for Inferior infarct are now Present Confirmed by Maxwell Carrasco ([id number]) on 10/17/2024 6:00:39 AM Referred By: REFERRED SELF Confirmed By: Maxwell Carrasco
== END 2024-10-16 16:40 | disposition home health service (06) | DRG 69 ==
LOC: ED 15:28 → 2S 18:59 → INTOOBSV 18:59 → 2S 20:34

== ENCOUNTER 2025-01-14 08:33 | Observation (INO) ==
[2025-01-14 09:01] LABS: Basophils # (auto) 0.04 K/uL (0.00-0.20); Basophils % (auto) 0.3 %; Eosinophils # (auto) 0.13 K/uL (0.00-0.50); Hematocrit (blood only) 41.4 % (37.0-47.0); Hemoglobin 13.6 g/dl (12.0-16.0); Immature Granulocytes # (auto) 0.04 K/uL (0.01-0.20); Immature Granulocytes % (auto) 0.3 %; Lymphocytes # (auto) 3.02 K/uL (1.20-3.40); Lymphocytes % (auto) 23.3 %; Mean Corpuscular Hemoglobin 28.6 pg (25.0-34.0); Mean Corpuscular Hgb Conc 32.9 g/dL (32.0-36.0); Mean Platelet Volume 10.1 fL (9.4-12.4); Monocytes % (auto) 6.2 %; Neutrophils # (auto) 8.95 K/uL (1.40-6.50); Neutrophils % (auto) 68.9 %; Platelet Count 279 K/uL (130-400); RDW Coefficient of Variation 14.2 % (11.5-14.5); RDW Standard Deviation 44.7 fL (36.4-46.3); Red Blood Count 4.76 M/uL (4.20-5.40); White Blood Count 12.98 K/ul (4.8-10.8)
[2025-01-14 09:13] LABS: INR 0.9 (0.9-1.1); Partial Thromboplastin Ratio 0.9; Partial Thromboplastin Time 25 Seconds (21-31); Prothrombin Time 9.9 Seconds (9.0-12.0)
--- NOTE | 2025-01-14 09:22 | XRay Report ---
XR chest 1V portable CLINICAL HISTORY: Chest pain, nonspecific COMPARISON STUDY: 08/14/2024 FINDINGS: Stable mild cardiomegaly without pulmonary vascular congestion. No effusion, consolidation, or pneumothorax. IMPRESSION: No acute findings. ACT 112: Negative or not required by law. Electronically signed by: Stephen Hull M.D. 01/14/2025 9:20 AM
[2025-01-14 09:29] LABS: Troponin I High Sensitivity 6.3 pg/ml (0-14)
[2025-01-14 09:30] LABS: Albumin Globulin Ratio 1.2 (0.9-2); BUN Creatinine Ratio 20.3 (10-20); Bilirubin,Total 0.3 mg/dl (0.2-1.0); Creatinine Clr Calc Pharmacy 82.4 ml/min; Globulin 3.3 gm/dl (2.5-4.0); Potassium 3.9 mmol/L (3.5-5.1); Total Protein 7.3 gm/dl (6.0-8.3)
--- NOTE | 2025-01-14 09:45 | Emergency Department Note ---
Impression & Plan Chest pain, Nausea & vomiting ED Provider Note ED Provider Note NAME: JONATHAN TOVAR AGE:69 SEX: Female : 1955 ARRIVES VIA: Private vehicle INFORMANT: Patient ED PROVIDER(s): Mihaela Diego DO CHIEF COMPLAINT: Chest pain, nausea vomiting HPI: This is a 69-year-old female who presents emergency department due to concern for left-sided chest pain as well as recurrent nausea vomiting. Patient states she did not feel well yesterday evening and overnight began to have episodes of nausea/vomiting and left-sided chest pain. She does states that most of the episodes of vomiting are posttussive in nature. She began having a mild cough and mild runny nose yesterday and suspects it is from her boyfriend who is also recently ill. She denies fevers or chills. She denies abdominal pain, change in bowel movements, change in urine, change in medications, or any dietary change. No prior episodes of chest pain. She denies any shortness of breath. No recent change in medications, no recent travel. PAST MEDICAL HISTORY:See Below PAST SURGICAL HISTORY:See Below FAMILY HISTORY:See Below SOCIAL HISTORY:See Below HOME MEDICATIONS:See Below ALLERGIES:See Below VITALS:See Below PHYSICAL EXAMINATION: GENERAL: alert, well appearing, well nourished, no distress, non-toxic EYE EXAM: normal conjunctiva, PERRL and EOM's grossly intact OROPHARYNX: no exudate, no erythema, lips, buccal mucosa, and tongue normal and mucous membranes are dry NECK: supple, no nuchal rigidity, no adenopathy, non-tender LUNGS: Clear to auscultation. Normal chest wall mechanics, no w/r/r HEART: no murmurs, S1 normal and S2 normal, reproducible pain with palpation along the left chest wall ABDOMEN: abdomen soft, non-tender, normo-active bowel sounds, no masses, no rebound or guarding. SKIN: no rashes, petechiae, orbruising UPPER EXTREMITIES: upper extremities are grossly normal. FROM, nml pulses b/l. LOWER EXTREMITIES: No pitting edema. FROM, nml pulses b/l. NEURO EXAM: Normal sensorium, cranial nerves II-XII grossly intact, normal speech, no facial droop,nogross weakness of arms, no gross weakness of legs. Gross sensation intact. No ataxia. Vital Signs: reviewed and remarkable Differential Diagnosis: acute coronary syndrome, pericarditis, pulmonary embolus, aortic dissection, pneumonia, pneumothorax, musculoskeletal pain, shingles, GERD, GI bleed, as well as others were considered MEDICAL DECISION MAKING: Patient has no contributory family history. Patient was first seen and observation began at 0841 and was necessary in order to evaluate and treat her symptoms including several liters of IV fluids and several medications for pain and nausea. Upon re-evaluation, 9 hours of observation revealed that the patient required further inpatient evaluation. Discharge from observation at 1740. This is a 69-year-old female who presents emergency room due to concern for chest pain, nausea and vomiting. Patient reported evolving URI symptoms prior to this as well as known sick contact. She was afebrile and hemodynamically stable on arrival. Labs drawn and sent, IV established, EKG and chest x-ray performed at bedside and interpreted by me and patient monitored on telemetry. Patient started on IV fluids and given several medications throughout her stay including IV Tylenol, IV Toradol, IV famotidine, IV pantoprazole, and 2 doses of IV Zofran. She did receive a second liter of IV fluids while monitored in the ER. Patient's labs reassuring however due to mildly elevated D-dimer she was sent for CT angiography of the chest. This was reassuring also. Patient reported improvement in her symptoms however still complained of persistent pain and with each attempted a p.o. challenge with complaint of recurrent nausea and had vomiting. It did not seem that any of these episodes were posttussive that she had originally described overnight. Patient reported being uncomfortable going home due to persistent symptoms. After many hours and many attempts at further medications, further hydration, additional labs, KUB performed and interpreted by me at bedside, and further discussion at bedside, patient comfortable going home. Case discussed with the hospitalist team for additional evaluation and management. Consultations: 1829: Discussed with Dr. Lewis, [facility] hospitalist team, for additional evaluation and management. ER Treatment Provided: See below Diagnostics Interpreted By Me: -ECG: Sinus tachycardia at 120, normal axis, normal intervals, apparent baseline noted, no obvious ST/T wave changes -Cardiac Monitoring: An order was placed for continuous cardiac monitoring. The monitor shows a rate of 102 with sinus tachycardia rhythm. -Laboratory studies: As stated above and show below. -Imaging studies: X-ray Chest: A single view study of the chest was reviewed and was negative for cardiomegaly, focal infiltrate, effusion, pulmonary edema, or wide mediastinum. Triage Nursing Note Reviewed Prior/Outside Records Reviewed Past Med/Surg History Problem List (Updated 01/14/25 @ 20:10 by Lachelle Lewis MD) Movement disorder B12 deficiency Acute gastroenteritis Nausea & vomiting (Acute) Chest pain (Acute) Major depressive disorder in remission Diabetes H/O: stroke Stroke-like symptoms Expressive aphasia Sinus tachycardia (Acute) Nausea (Acute) Dizziness (Acute) Acute bilateral knee pain (Acute) Medical non-compliance Choledocholithiasis Acute calculous cholecystitis Hyperglycemia (Acute) Vitamin D deficiency Failure to thrive Abdominal pain, acute, left upper quadrant (Acute) Norovirus Malaise DVT prophylaxis COVID-19 (Acute) Hypercalcemia (Acute) Cerebrovascular disease Postsurgical hypothyroidism (Chronic) GERD (gastroesophageal reflux disease) Medical History Sinus tachycardia Hyperglycemia due to type 2 diabetes mellitus Restless legs Atrial tachycardia Elevated lactic acid level Hypothyroidism Elevated lactic acid level Hyperglycemia Chest pain Hyperglycemia Abdominal pain Lactic acidemia Abdominal pain Diarrhea Hypoglycemia History of anemia Gout Cervical dysplasia Diabetic peripheral neuropathy Cerebellar infarct Acute CVA (cerebrovascular accident) Altered mental status Vertigo Hypothyroidism Sensory ataxia Polyneuropathy Major depressive disorder Lumbosacral radiculopathy Hyperlipidemia Encounter for routine gynecological examination Diabetic peripheral neuropathy 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 CVA (cerebral vascular accident) Chronic skin ulcer of right ear Depression with anxiety T2DM (type 2 diabetes mellitus) Weakness TIA (transient ischemic attack) Neurological deficit present Hyperglycemia Dizziness Wound, open, ear, external with complication Suicide attempt Major depressive disorder, recurrent episode, severe with anxious distress Lumbar stenosis with neurogenic claudication Lower extremity weakness Intractable low back pain Hypotension Hypokalemia Hypertension HNP (herniated nucleus pulposus), lumbar Fecal impaction Dyslipidemia DKA (diabetic ketoacidoses) Constipation Chest pain Anxiety Altered mental status Acute gastritis Surgical History Hx laparoscopic cholecystectomy (08/16/23) Robotic Laparoscopic Cholecystectomy - Stephen Talley, DO, FACS History of total abdominal hysterectomy H/O laparoscopy Status post hysteroscopic ablation of endometrium H/O dilation and curettage History of dental surgery History of colposcopy with cervical biopsy Previous back surgery History of tonsillectomy Status post lumbar spine surgery for decompression of spinal cord H/O cardiac catheterization History of hysterectomy Family History Mother , in her early 70s of some sort of cancer (patient not clear if it was breast cancer) Breast cancer Diabetes Grandmother Breast cancer Grandmother Breast cancer Unknown Colon cancer Father , Diet it age 78 of a myelodysplastic syndrome. He also had Cqiebho-Lgyva-Cbcby disease. Myelodysplasia (myelodysplastic syndrome) Ukiimve-Ukrbw-Roarw disease Heart disease Brother Wwjtwno-Azczy-Kqshg disease Other No pertinent family history in first degree relatives Social History Smoking Status: Never smoker Second Hand Exposure: No; Do You Dip or Chew Tobacco: No; Hx Alcohol Use: No Hx Substance Use: No Preferred Language: Luxembourgish Communication Ability: Effective Visual Impairment: No Limitations [employer] Truck [employer] Required: No Beliefs That Will Affect Care: None marital status: significant other Current Living Situation: Alone Current Living Situation Comment: Stays with the boyfriend current occupational status: disabled current occupation: Patient used to work at [employer] for 23 years and then [employer] How many Children do You have: 2 other: Retired on disability from her back 3 years ago Feels Safe at Home: Yes Assistive Devices: Walker and Wheelchair Allergies Allergies Allergy/AdvReac Type Severity Reaction Status Date / Time cisapride Allergy Intermediate Hives Verified 01/14/25 13:19 doxycycline Allergy Intermediate Rash Verified 01/14/25 13:19 gadobutrol [From Gadavist] Allergy Intermediate Hives Verified 01/14/25 13:19 lansoprazole Allergy Intermediate Hives Verified 01/14/25 13:19 Penicillins Allergy Intermediate Rash Verified 01/14/25 13:19 tetracycline Allergy Intermediate Rash Verified 01/14/25 13:19 Home Meds Home Medications Medication Instructions Recorded Confirmed mirtazapine 30 mg tablet 30 mg PO HS 05/04/18 01/14/25 vortioxetine 20 mg tablet 20 mg PO QPM 06/06/19 01/14/25 (Trintellix) brexpiprazole 0.5 mg tablet 0.5 mg PO HS 11/06/23 01/14/25 (Rexulti) blood-glucose sensor (FreeStyle 12/17/24 01/14/25 Jose Francisco 3 Plus Sensor device) atorvastatin 20 mg tablet 40 mg PO QPM 01/14/25 01/14/25 Previous Rx's Medication Instructions Recorded aspirin 81 mg tablet,delayed 81 mg PO QAM #30 tabs 03/02/19 release (Ecotrin Low Strength) pen needle, diabetic 32 gauge x #100 ea 09/12/23" (BD Ultra-Fine Flores Pen Needle) acetone (urine) test (Ketostix #25 ea 03/06/24 strips) metformin 1,000 mg tablet 1,000 mg PO BID #180 tabs 10/20/24 cholecalciferol (vitamin D3) 25 25 mcg PO DAILY #30 caps 10/27/24 mcg (1,000 unit) capsule sitagliptin phosphate 100 mg 100 mg PO DAILY #30 tabs 10/27/24 tablet (Januvia) canagliflozin 100 mg tablet 100 mg PO QAM #30 tabs 11/04/24 (Invokana) insulin glargine 100 unit/mL (3 16 unit (0.16 mL) subcut QAM #15 mL 11/24/24 mL) subcutaneous pen (Lantus Solostar U-100 Insulin) Novolog FlexPen U-100 Insulin 100 6 unit (0.06 mL) subcut BID #15 mL 11/25/24 unit/mL (3 mL) subcutaneous (insulin aspart U-100) levothyroxine 100 mcg tablet 100 mcg PO DAILY #90 tabs 12/08/24 Results & Data (ED) Vital Signs Vital Signs - 24 hr 01/14/25 10:35 01/14/25 11:41 01/14/25 13:00 Pulse Rate Pulse Rate [Apical] 91 H 90 89 Respiratory Rate 22 18 20 Respiratory Effort / Characteristics Non-Labored Spontaneous Non-Labored Spontaneous Non-Labored Spontaneous Respiratory Depth Normal Normal Normal Respiratory Pattern Regular Regular Regular Blood Pressure Blood Pressure [Right Arm] 151/93 H 129/85 120/86 Blood Pressure Mean Blood Pressure Mean [Right Arm] 112 99 97 Blood Pressure Position [Right Arm] Sitting Pulse Oximetry 94 98 97 Oxygen Delivery Method Room Air Room Air Room Air 01/14/25 15:06 01/14/25 15:30 01/14/25 16:00 Pulse Rate 88 2 L 86 Pulse Rate [Apical] Respiratory Rate 24 20 22 Respiratory Effort / Characteristics Respiratory Depth Respiratory Pattern Blood Pressure 143/109 H 141/94 H 144/88 H Blood Pressure [Right Arm] Blood Pressure Mean 115 99 119 Blood Pressure Mean [Right Arm] Blood Pressure Position [Right Arm] Pulse Oximetry 97 96 94 Oxygen Delivery Method Room Air Room Air Room Air 01/14/25 16:30 01/14/25 16:49 01/14/25 17:00 Pulse Rate 86 86 88 Pulse Rate [Apical] Respiratory Rate 20 20 Respiratory Effort / Characteristics Respiratory Depth Respiratory Pattern Blood Pressure 143/84 H 143/103 H Blood Pressure [Right Arm] Blood Pressure Mean 102 111 Blood Pressure Mean [Right Arm] Blood Pressure Position [Right Arm] Pulse Oximetry 96 98 Oxygen Delivery Method Room Air Room Air 01/14/25 17:30 01/14/25 18:00 01/14/25 18:30 Pulse Rate 91 H 90 105 H Pulse Rate [Apical] Respiratory Rate 18 22 22 Respiratory Effort / Characteristics Respiratory Depth Respiratory Pattern Blood Pressure 131/85 132/91 129/86 Blood Pressure [Right Arm] Blood Pressure Mean 114 103 112 Blood Pressure Mean [Right Arm] Blood Pressure Position [Right Arm] Pulse Oximetry 97 96 96 Oxygen Delivery Method Room Air Room Air Room Air 01/14/25 19:00 01/14/25 19:30 Pulse Rate 90 85 Pulse Rate [Apical] Respiratory Rate 12 21 Respiratory Effort / Characteristics Respiratory Depth Respiratory Pattern Blood Pressure 103/72 123/84 Blood Pressure [Right Arm] Blood Pressure Mean 93 97 Blood Pressure Mean [Right Arm] Blood Pressure Position [Right Arm] Pulse Oximetry 96 95 Oxygen Delivery Method Room Air Room Air Laboratory Data 01/15/25 06:47 01/15/25 06:47 Lab Results 01/14/25 01/14/25 01/14/25 Range/Units 08:45 08:48 11:25 WBC 12.98 H (4.8-10.8) K/ul RBC 4.76 (4.20-5.40) M/uL Hgb 13.6 (12.0-16.0) g/dl Hct 41.4 (37.0-47.0) % MCV 87.0 (80.0-100.0) fL MCH 28.6 (25.0-34.0) pg MCHC 32.9 (32.0-36.0) g/dL RDW Std Deviation 44.7 (36.4-46.3) fL RDW Coeff of Maris 14.2 (11.5-14.5) % Plt Count 279 (130-400) K/uL MPV 10.1 (9.4-12.4) fL Immature Gran % (Auto) 0.3 % Neut % (Auto) 68.9 % Lymph % (Auto) 23.3 % [place] % (Auto) 6.2 % Eos % (Auto) 1.0 % Baso % (Auto) 0.3 % Neut # (Auto) 8.95 H (1.40-6.50) K/uL Lymph # (Auto) 3.02 (1.20-3.40) K/uL [place] # (Auto) 0.80 H (0.11-0.59) K/uL Eos # (Auto) 0.13 (0.00-0.50) K/uL Baso # (Auto) 0.04 (0.00-0.20) K/uL Immature Gran # (Auto) 0.04 (0.01-0.20) K/uL PT 9.9 (9.0-12.0) Seconds INR 0.9 (0.9-1.1) APTT 25 (21-31) Seconds PTT Ratio 0.9 D-Dimer 830 H* (0-500) ug/L FEU Sodium 139 (136-145) mmol/L Potassium 3.9 (3.5-5.1) mmol/L Chloride 106 (98-107) mmol/L Carbon Dioxide 23 (21-32) mmol/L Anion Gap 10 (3-11) BUN 13 (6-23) mg/dl Creatinine 0.64 (0.6-1.2) mg/dl Est Cr Clr Drug Dosing 82.4 ml/min eGFR 96.20 BUN/Creatinine Ratio 20.3 H (10-20) Glucose 111 H (70-99(Fasting)) mg/dl POC Glucose 118 H (70-99) mg/dl Calcium 10.0 (8.6-10.3) mg/dl Total Bilirubin 0.3 (0.2-1.0) mg/dl AST 17 (13-39) U/L ALT 11 (7-52) U/L Alkaline Phosphatase 65 (34-104) U/L Troponin I High Sens 6.3 (0-14) pg/ml Total Protein 7.3 (6.0-8.3) gm/dl Albumin 4.0 (3.4-5.0) gm/dl Globulin 3.3 (2.5-4.0) gm/dl Albumin/Globulin Ratio 1.2 (0.9-2) Lipase 61 (11-82) U/L 01/14/25 Range/Units 17:47 WBC (4.8-10.8) K/ul RBC (4.20-5.40) M/uL Hgb (12.0-16.0) g/dl Hct (37.0-47.0) % MCV (80.0-100.0) fL MCH (25.0-34.0) pg MCHC (32.0-36.0) g/dL RDW Std Deviation (36.4-46.3) fL RDW Coeff of Maris (11.5-14.5) % Plt Count (130-400) K/uL MPV (9.4-12.4) fL Immature Gran % (Auto) % Neut % (Auto) % Lymph % (Auto) % [place] % (Auto) % Eos % (Auto) % Baso % (Auto) % Neut # (Auto) (1.40-6.50) K/uL Lymph # (Auto) (1.20-3.40) K/uL [place] # (Auto) (0.11-0.59) K/uL Eos # (Auto) (0.00-0.50) K/uL Baso # (Auto) (0.00-0.20) K/uL Immature Gran # (Auto) (0.01-0.20) K/uL PT (9.0-12.0) Seconds INR (0.9-1.1) APTT (21-31) Seconds PTT Ratio D-Dimer (0-500) ug/L FEU Sodium (136-145) mmol/L Potassium (3.5-5.1) mmol/L Chloride (98-107) mmol/L Carbon Dioxide (21-32) mmol/L Anion Gap (3-11) BUN (6-23) mg/dl Creatinine (0.6-1.2) mg/dl Est Cr Clr Drug Dosing ml/min eGFR BUN/Creatinine Ratio (10-20) Glucose (70-99(Fasting)) mg/dl POC Glucose (70-99) mg/dl Calcium (8.6-10.3) mg/dl Total Bilirubin (0.2-1.0) mg/dl AST (13-39) U/L ALT (7-52) U/L Alkaline Phosphatase (34-104) U/L Troponin I High Sens 6.2 (0-14) pg/ml Total Protein (6.0-8.3) gm/dl Albumin (3.4-5.0) gm/dl Globulin (2.5-4.0) gm/dl Albumin/Globulin Ratio (0.9-2) Lipase (11-82) U/L Administered Medications Aspirin (Aspirin 81 Mg Ectab) 81 mg PO QAM [facility] Stop: 02/14/25 08:59 Last Admin: 01/15/25 08:27 Dose: 81 mg Documented By: MELVI Atorvastatin Calcium (Atorvastatin 40 Mg Tab) 40 mg PO QPM [facility] Stop: 02/13/25 22:08 Last Admin: 01/14/25 22:34 Dose: 40 mg Documented By: PNLorraine Cyanocobalamin (Cyanocobalamin 1000 Mcg/Ml Vial) 1,000 mcg IM QAM [facility] Stop: 01/20/25 09:01 Last Admin: 01/15/25 08:28 Dose: 1,000 mcg Documented By: Admin: 01/14/25 22:35 Dose: 1,000 mcg Documented By: PNLorraine Dextrose/Sodium Chloride (D5w And 1/2nss) 1,000 mls @ 80 mls/hr IV .[id number] [facility] Stop: 01/17/25 19:44 Last Infusion: 01/15/25 08:29 Dose: 0 mls/hr Documented By: Admin: 01/14/25 20:28 Dose: 80 mls/hr Documented By: ETHAN Thiamine HCl 500 mg/ Sodium (Chloride) 55 mls @ 210 mls/hr IV Q8 [facility] Stop: 01/17/25 14:16 Last Infusion: 01/15/25 07:01 Dose: Infused Documented By: Admin: 01/15/25 06:12 Dose: 210 mls/hr Documented By: Infusion: 01/15/25 00:47 Dose: Infused Documented By: Admin: 01/14/25 22:35 Dose: 210 mls/hr Documented By: MUKESH Insulin Aspart (Insulin Aspart Per Unit Charge) 0 units SC ACHS [facility] Stop: 02/13/25 22:08 Last Admin: 01/15/25 08:34 Dose: 2 units Documented By: MELVI Co-signed By: HRB Admin: 01/14/25 23:02 Dose: Not Given Documented By: MITCHM Insulin Glargine (Lantus Per Unit Charge) 8 units SC QAM [facility] Stop: 02/14/25 08:59 Last Admin: 01/15/25 08:36 Dose: 8 units Documented By: MELVI Co-signed By: HRB Levothyroxine Sodium (Levothyroxine Sodium 100 Mcg Tablet) 100 mcg PO DAILYBB [facility] Stop: 02/14/25 06:29 Last Admin: 01/15/25 06:12 Dose: 100 mcg Documented By: MUKESH Mirtazapine (Mirtazapine Tab 15 Mg Tab) 30 mg PO HS [facility] Stop: 02/13/25 22:08 Last Admin: 01/14/25 22:34 Dose: 30 mg Documented By: MUKESH Miscellaneous ((Brexpiprazole [Rexulti] 0.5 Mg Tablet)~Order Awaiting Action) 1 each N/A QS [facility] Stop: 02/13/25 22:14 Last Admin: 01/15/25 08:28 Dose: Not Given Documented By: Admin: 01/14/25 22:52 Dose: Not Given Documented By: MUKESH Vitamin D (Cholecalciferol 25 Mcg (1000 Units) Tab) 25 mcg PO DAILY [facility] Stop: 02/14/25 08:59 Last Admin: 01/15/25 08:27 Dose: 25 mcg Documented By: MELVI Vortioxetine (Vortioxetine Hydrobromide 20 Mg Tab) 20 mg PO QPM [facility] Stop: 02/13/25 22:08 Last Admin: 01/14/25 22:34 Dose: 20 mg Documented By: MUKESH Discontinued Medications Sodium Chloride (Nss) 1,000 mls @ 999 mls/hr IV .Q1H1M ONE Stop: 01/14/25 10:43 Last Infusion: 01/14/25 10:57 Dose: Infused Documented By: Admin: 01/14/25 09:49 Dose: 999 mls/hr Documented By: ANTWAN Famotidine (Pepcid 20mg Iv Push) 20 mg in 5 mls @ 2.5 mls/min IV NOW STA Stop: 01/14/25 09:44 Last Admin: 01/14/25 09:50 Dose: 2.5 mls/min Documented By: ANTWAN Acetaminophen (Ofirmev) 1,000 mg in 100 mls @ 400 mls/hr IV NOW STA Stop: 01/14/25 09:58 Last Infusion: 01/14/25 10:19 Dose: Infused Documented By: Admin: 01/14/25 09:49 Dose: 400 mls/hr Documented By: ANTWAN Sodium Chloride (Nss) 500 mls @ 999 mls/hr IV .Q31M ONE Stop: 01/14/25 11:14 Last Infusion: 01/14/25 11:28 Dose: Infused Documented By: Admin: 01/14/25 10:56 Dose: 999 mls/hr Documented By: ANTWAN Pantoprazole Sodium (Protonix) 40 mg in 10 mls @ 5 mls/min IV NOW ONE Stop: 01/14/25 11:18 Last Admin: 01/14/25 11:29 Dose: Not Given Documented By: ANTWAN Ioversol (Optiray 320 125ml) 119 ml IV ONCE ONE Stop: 01/14/25 12:50 Last Admin: 01/14/25 12:49 Dose: 119 ml Documented By: JANELL Ketorolac Tromethamine (Ketorolac Tromethamine 15 Mg/Ml Vial) 10 mg IV NOW ONE Stop: 01/14/25 11:18 Last Admin: 01/14/25 11:29 Dose: Not Given Documented By: ANTWAN Ketorolac Tromethamine (Ketorolac Tromethamine 15 Mg/Ml Vial) 10 mg IV NOW ONE Stop: 01/14/25 13:34 Last Admin: 01/14/25 13:40 Dose: 10 mg Documented By: ANTWAN Ondansetron HCl (Ondansetron Inj 2 Mg/Ml 2 Ml Vial) 4 mg IV NOW STA Stop: 01/14/25 14:41 Last Admin: 01/14/25 15:39 Dose: 4 mg Documented By: ETHAN Ondansetron HCl (Ondansetron Inj 2 Mg/Ml 2 Ml Vial) 4 mg IV NOW STA Stop: 01/14/25 17:39 Last Admin: 01/14/25 17:45 Dose: 4 mg Documented By: ETHAN Imaging Data Radiologist's Impression: Chest X-Ray 01/14/25 08:45 XR chest 1V portable CLINICAL HISTORY: Chest pain, nonspecific COMPARISON STUDY: 08/14/2024 FINDINGS: Stable mild cardiomegaly without pulmonary vascular congestion. No effusion, consolidation, or pneumothorax. IMPRESSION: No acute findings. ACT 112: Negative or not required by law. Electronically signed by: Stephen Hull M.D. 01/14/2025 9:20 AM Chest CTA 01/14/25 12:24 CT angio chest PE protocol CT DOSE: 729.83 mGy.cm HISTORY: PE. TECHNIQUE: Multiple CTA images of the chest were obtained after the intravenous administration of 120 ml Optiray. Coronal and sagittal MIPS were obtained from the axial data set and were submitted for review. All measurements were obtained according to NASCET criteria. A dose lowering technique was utilized adhering to the principles of ALARA. COMPARISON STUDY: 10/15/2024 FINDINGS: There is no pulmonary consolidation, pleural effusion, or pneumothorax. There are a few stable scattered small pulmonary nodules, largest anterior left upper lobe series 4 image 150 measures 5 mm, stable. No interval significant pulmonary nodule seen. No enlarged adenopathy. No pericardial effusion. There is stable mild ectasia of the ascending thoracic aorta measuring 4 cm diameter. No thoracic aortic dissection. No pulmonary embolism. No acute osseous findings. IMPRESSION: No pulmonary embolism or pneumonia seen. ACT 112: Negative or not required by law. The above report was generated using voice recognition software. It may contain grammatical, syntax or spelling errors. Electronically signed by: Stephen Hull M.D. 01/14/2025 1:20 PM Discharge Plan Visit Data Chief Complaint: Tachycardia Stated Complaint: RACING HEART,VOMITING ED Provider: Mihaela Diego Discharge Problem: Chest pain, Nausea & vomiting Patient Disposition: Admitted As Inpatient Condition: Good Discharge Instructions Interventions: ED Discharge Assessment Last Done: 01/14/25 21:25
[2025-01-14] MEDS: ACETAMINOPHEN 1,000 MG/100 ML VIAL IV STA (09:49)
[2025-01-14] MEDS: SODIUM CHLORIDE 0.9% 1,000 ML IV ONE (09:49)
[2025-01-14] MEDS: FAMOTIDINE 20MG IV PUSH 20 MG/5 ML SYR IV STA (09:50)
[2025-01-14 10:48] LABS: Adenovirus PCR Not Detected (NotDetected); Bordetella parapertussis PCR Not Detected (NotDetected); Bordetella pertussis PCR Not Detected (NotDetected); Chlamydia pneumoniae PCR Not Detected (NotDetected); Coronavirus 229E PCR Not Detected (NotDetected); Coronavirus CoV-2 (COVID19)PCR Not Detected (NotDetected); Coronavirus HKU1 PCR Not Detected (NotDetected); Coronavirus NL63 PCR Not Detected (NotDetected); Coronavirus OC43PCR Not Detected (NotDetected); Human Metapneumovirus PCR Not Detected (NotDetected); Influenza A PCR Not Detected (NotDetected); Influenza B PCR Not Detected (NotDetected); Mycoplasma pneumoniae PCR Not Detected (NotDetected); Parainfluenza Virus 1 PCR Not Detected (NotDetected); Parainfluenza Virus 2 PCR Not Detected (NotDetected); Parainfluenza Virus 3 PCR Not Detected (NotDetected); Parainfluenza Virus 4 PCR Not Detected (NotDetected); Respiratory Syncytial VirusPCR Not Detected (NotDetected); Rhinovirus/Enterovirus PCR Not Detected (NotDetected)
[2025-01-14] MEDS: SODIUM CHLORIDE 0.9% 500 ML IV ONE (10:56)
[2025-01-14] MEDS: PANTOprazole 40 MG/10 ML SYR IV ONE (11:29)
[2025-01-14] MEDS: KETOROLAC TROMETHAMINE 15 MG/ML VIAL IV ONE ×2 (11:29→13:40)
[2025-01-14 12:14] LABS: D Dimer 830 ug/L FEU (0-500)
[2025-01-14] MEDS: OPTIRAY 320 125ml IV ONE (12:49)
--- NOTE | 2025-01-14 13:21 | CT Scan Report ---
CT angio chest PE protocol CT DOSE: 729.83 mGy.cm HISTORY: PE. TECHNIQUE: Multiple CTA images of the chest were obtained after the intravenous administration of 120 ml Optiray. Coronal and sagittal MIPS were obtained from the axial data set and were submitted for review. All measurements were obtained according to NASCET criteria. A dose lowering technique was u tilized adhering to the principles of ALARA. COMPARISON STUDY: 10/15/2024 FINDINGS: There is no pulmonary consolidation, pleural effusion, or pneumothorax. There are a few sta ble scattered small pulmonary nodules, largest anterior left upper lobe series 4 image 150 measures 5 mm, stable. No interval significant pulmonary nodule seen. No enlarged adenopathy. No pericardial ef fusion. There is stable mild ectasia of the ascending thoracic aorta measuring 4 cm diameter. No thor acic aortic dissection. No pulmonary embolism. No acute osseous findings. IMPRESSION: No pulmonary embolism or pneumonia seen. ACT 112: Negative or not required by law. The above report was generated using voice recognition software. It may contain grammatical, syntax o r spelling errors. Electronically signed by: Stephen Hull M.D. 01/14/2025 1:20 PM
[2025-01-14] MEDS: ONDANSETRON INJ 2 MG/ML 2 ML VIAL IV STA ×2 (15:39→17:45)
[2025-01-14] MEDS ORDERED: diphenhydrAMINE 50 MG/ML VIAL IV PRN (19:33)
[2025-01-14] MEDS ORDERED: ONDANSETRON INJ 2 MG/ML 2 ML VIAL IV PRN (19:33)
--- NOTE | 2025-01-14 20:14 | XRay Report ---
2 images of the abdomen No comparison Impression: Postoperative changes interbody fusion L4-S1. Nonobstructive bowel gas pattern. Iodinated contrast seen within the renal collecting system and urinary bladder. Electronically signed by Nik Tong 01-14-2025 8:14 PM
--- NOTE | 2025-01-14 20:20 | History & Physical Report ---
Date of Service January 14, 2025 Assessment & Plan (1) Acute gastroenteritis: (2) Major depressive disorder in remission: (3) Diabetic peripheral neuropathy: (4) T2DM (type 2 diabetes mellitus): (5) H/O: stroke: (6) B12 deficiency: (7) Movement disorder: Plan 69-year-old woman with history of poorly controlled type 2 diabetes admitted with nausea vomiting and diarrhea, she and her boyfriend have had some upper respiratory symptoms with cough no evidence of pneumonia I think this is probably an acute gastroenteritis however she also could have a GI motility disorder related to her diabetes. Boyfriend has no GI symptoms. Denied chronic nausea/vomiting or epigastric pain but is scheduled for GE study 02/18 so she must have some symptom which triggered this study. # acute gastroenteritis vs GI motility disorder - stool BioFire ordered since etiology is a little unclear. no history of C. difficile or recent antibiotics no fever abdominal pain/tenderness or leukocytosis with C. difficile unlikely. - supportive care with IV fluidsD5 one half normal saline since she has a history of hypoglycemia - IV ondansetron as needed for nausea with IV Benadryl for backup. Avoiding Compazine Reglan and Phenergan because of movement disorder - judicious Imodium as needed - has GE study 02/18 # Movement disorder, peripheral neuropathy, ambulatory dysfunction, cognitive impairment? # diabetic neuropathy # B12 deficiency, metformin sounds like this movement disorder is longstanding though not commented on in more remote hospital notes prior to this spring/winter and no previous neurology notes. She does have an appointment with neurology on 02/03 which is in a few weeks. It could be related to her previous left thalamic/capsule CVA however that would not really explain her left-sided symptoms, her brother does have a history of Qqrbgvk-Syemu-Hiptd which could present this way especially with the muscular atrophy in her hands and calves as well as fasciculations though I do not think this really causes an akathisia, could be EPS from her psychiatric medications and will need to obtain more detailed history although the current low-dose unlikely to cause this. parkinsonism is possible, which can rarely cause akathisia - continue her usual psychiatric medications at this point, psychiatry was consulted last admission did not feel it was medication side effects though that cannot be completely ruled out if previous higher dose antipsychotics - vitamin B12 1000 mcg IM daily while in the hospital - I will empirically replace her thiamine with 500 mg IV every 8 hours timesx 9 doses or until discharge, then continue oral supplement, ordered B1 level - follow-up with neurology in 2 weeks as scheduled # DM type 2 - last A1c 8's, followed closely in endo clinic -not eating well so reduced glargine by 50%, continue PRN/premeal correctional aspart, D5 until eating since has had hypoglycemia problems -hold OHAs # mood disorder - depression with SA in past -continue trintellix, mirtazapine, rexulti # Hx CVA, recent episode possibly TIA - neuro follow up 02/03, continue ASA and statin. Sounds like she never took the recommended 3 weeks of plavix # hypothyroidism - cont Synthroid. Recent TFTs ok PT/OT SCD's for now History of Present Illness Chief Complaint: vomiting Primary Care Provider: Andry Kerr MD 69-year-old woman with longstanding poorly controlled diabetes who came in with nausea and vomiting. This started yesterday initially it was posttussive emesis. She had a cough starting yesterday that is not productive. Her boyfriend has also had upper respiratory symptoms including cough. Said she came to the ED she has had multiple episodes of emesis but has not been posttussive. It did not resolve after several doses of ondansetron she was also given Toradol for some left-sided chest pain which also started since yesterday. She denies any previous history of nausea and vomiting problems however I note that she has a gastric emptying study scheduled February 18 which suggests chronicity. This afternoon she did have a large diarrhea stool. She denies any abdominal pain or back pain. Her boyfriend has not had diarrhea. No antibiotics in the last 6 months or so, no known history of C. difficile. It is notable that she has continuous movements with rest tremor of her right hand and constant movement of her bilateral lower extremities. They state this is longstanding and she is "always like this" she was recently evaluated in the ED for strokelike symptoms which was treated as a TIA with aspirin and 3 weeks of Plavix, however, outpatient notes state that she did never picked up the Plavix. 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 She also has a low B12 level twice since August including 12/08/24 but had not been taking any B12. oral B12 was started by endocrine clinic late December. she has longstanding lower extremity neuropathy symptoms which she has attributed to "failed back surgery" Obviously she has risk for diabetic neuropathy. She has chronic generalized weakness and ambulatory dysfunction and has used a walker for quite some time. Her medications include Rexulti which is an atypical antipsychotic similar to aripiprazole however dose is very low at 0.5 mg at bedtime. She had psychiatry consultation last admission he did not feel that dose is low should be contributing to a movement disorder. Also on mirtazapine and Trintellix without evidence of serotonergic symptoms. she does have neurology follow-up scheduled with Dr. Anne on 02/03 for her strokelike symptoms and history of previous stroke. Allergies Allergy/AdvReac Type Severity Reaction Status Date / Time cisapride Allergy Intermediate Hives Verified 01/14/25 13:19 doxycycline Allergy Intermediate Rash Verified 01/14/25 13:19 gadobutrol [From Gadavist] Allergy Intermediate Hives Verified 01/14/25 13:19 lansoprazole Allergy Intermediate Hives Verified 01/14/25 13:19 Penicillins Allergy Intermediate Rash Verified 01/14/25 13:19 tetracycline Allergy Intermediate Rash Verified 01/14/25 13:19 Home Medications Medication Instructions Recorded Confirmed Type mirtazapine 30 mg tablet 30 mg PO HS 05/04/18 01/14/25 History aspirin 81 mg tablet,delayed 81 mg PO QAM #30 tabs 03/02/19 01/14/25 Rx release (Ecotrin Low Strength) vortioxetine 20 mg tablet 20 mg PO QPM 06/06/19 01/14/25 History (Trintellix) pen needle, diabetic 32 gauge x #100 ea 09/12/23 01/14/25 Rx 5/32" (BD Ultra-Fine Flores Pen Needle) brexpiprazole 0.5 mg tablet 0.5 mg PO HS 11/06/23 01/14/25 History (Rexulti) acetone (urine) test (Ketostix #25 ea 03/06/24 01/14/25 Rx strips) metformin 1,000 mg tablet 1,000 mg PO BID #180 tabs 10/20/24 01/14/25 Rx cholecalciferol (vitamin D3) 25 25 mcg PO DAILY #30 caps 10/27/24 01/14/25 Rx mcg (1,000 unit) capsule sitagliptin phosphate 100 mg 100 mg PO DAILY #30 tabs 10/27/24 01/14/25 Rx tablet (Januvia) canagliflozin 100 mg tablet 100 mg PO QAM #30 tabs 11/04/24 01/14/25 Rx (Invokana) insulin glargine 100 unit/mL (3 16 unit (0.16 mL) subcut QAM #15 mL 11/24/24 01/14/25 Rx mL) subcutaneous pen (Lantus Solostar U-100 Insulin) Novolog FlexPen U-100 Insulin 100 6 unit (0.06 mL) subcut BID #15 mL 11/25/24 01/14/25 Rx unit/mL (3 mL) subcutaneous (insulin aspart U-100) levothyroxine 100 mcg tablet 100 mcg PO DAILY #90 tabs 12/08/24 01/14/25 Rx blood-glucose sensor (FreeStyle 12/17/24 01/14/25 History Jose Francisco 3 Plus Sensor device) atorvastatin 20 mg tablet 40 mg PO QPM 01/14/25 01/14/25 History Past Med/Surg History Problem List (Updated 01/14/25 @ 20:10 by Lachelle Lewis MD) Movement disorder B12 deficiency Acute gastroenteritis Nausea & vomiting (Acute) Chest pain (Acute) Major depressive disorder in remission Diabetes H/O: stroke Stroke-like symptoms Expressive aphasia Sinus tachycardia (Acute) Nausea (Acute) Dizziness (Acute) Acute bilateral knee pain (Acute) Medical non-compliance Choledocholithiasis Acute calculous cholecystitis Hyperglycemia (Acute) Vitamin D deficiency Failure to thrive Abdominal pain, acute, left upper quadrant (Acute) Norovirus Malaise DVT prophylaxis COVID-19 (Acute) Hypercalcemia (Acute) Cerebrovascular disease Postsurgical hypothyroidism (Chronic) GERD (gastroesophageal reflux disease) Medical History Sinus tachycardia Hyperglycemia due to type 2 diabetes mellitus Restless legs Atrial tachycardia Elevated lactic acid level Hypothyroidism Elevated lactic acid level Hyperglycemia Chest pain Hyperglycemia Abdominal pain Lactic acidemia Abdominal pain Diarrhea Hypoglycemia History of anemia Gout Cervical dysplasia Diabetic peripheral neuropathy Cerebellar infarct Acute CVA (cerebrovascular accident) Altered mental status Vertigo Hypothyroidism Sensory ataxia Polyneuropathy Major depressive disorder Lumbosacral radiculopathy Hyperlipidemia Encounter for routine gynecological examination Diabetic peripheral neuropathy 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 CVA (cerebral vascular accident) Chronic skin ulcer of right ear Depression with anxiety T2DM (type 2 diabetes mellitus) Weakness TIA (transient ischemic attack) Neurological deficit present Hyperglycemia Dizziness Wound, open, ear, external with complication Suicide attempt Major depressive disorder, recurrent episode, severe with anxious distress Lumbar stenosis with neurogenic claudication Lower extremity weakness Intractable low back pain Hypotension Hypokalemia Hypertension HNP (herniated nucleus pulposus), lumbar Fecal impaction Dyslipidemia DKA (diabetic ketoacidoses) Constipation Chest pain Anxiety Altered mental status Acute gastritis Surgical History Hx laparoscopic cholecystectomy (08/16/23) Robotic Laparoscopic Cholecystectomy - Stephen Talley, DO, FACS History of total abdominal hysterectomy H/O laparoscopy Status post hysteroscopic ablation of endometrium H/O dilation and curettage History of dental surgery History of colposcopy with cervical biopsy Previous back surgery History of tonsillectomy Status post lumbar spine surgery for decompression of spinal cord H/O cardiac catheterization History of hysterectomy Family History Mother , in her early 70s of some sort of cancer (patient not clear if it was breast cancer) Breast cancer Diabetes Grandmother Breast cancer Grandmother Breast cancer Unknown Colon cancer Father , Diet it age 78 of a myelodysplastic syndrome. He also had Baitikx-Dlyeh-Srmnv disease. Myelodysplasia (myelodysplastic syndrome) Tdgwzgl-Hereu-Poboo disease Heart disease Brother Aqujtgh-Ghzuq-Uhhkp disease Other No pertinent family history in first degree relatives Social History Smoking Status: Never smoker Second Hand Exposure: No; Do You Dip or Chew Tobacco: No; Hx Alcohol Use: No Hx Substance Use: No Preferred Language: Puerto Rican Communication Ability: Effective Visual Impairment: No Limitations Scudding Inspector Required: No Beliefs That Will Affect Care: None marital status: significant other Current Living Situation: Significant Other Current Living Situation Comment: lives w/ boyfriend current occupational status: disabled current occupation: Patient used to work at [employer] for 23 years and then [employer] How many Children do You have: 2 other: Retired on disability from her back 3 years ago Feels Safe at Home: Yes Assistive Devices: Walker Review of Systems Review of Systems: All systems reviewed & are unremarkable except as noted in HPI & below Physical Exam Physical Exam: Last 24h vitals reviewed GEN: no acute distress, lying in bed pretty flat HEENT: pupils equal, sclerae anicteric, moist MM. Crouch face RESP: normal WOB, CTAB CV: reg no mrg. Left upper chest wall tenderness to palpation ABD: soft/nt/nd though mildly tympanic +BT : no quach SKIN: warm and dry, no generalized rashes x rosacea NEURO: AOx person, place, and situation, vague historian. Face symmetric, speech normal, rest tremor of R hand, very mild rigidity and slight cogwheeling of daya UE, continuous motion of both LE, unable to appreciate patellar reflexes, no ankle clonus, diffuse sarcopenia including atrophy of intraosseus muscles of both hands, both calves, muscle fasciculations right thigh Results & Data Results & Data Vital Signs (Past 12 Hours) Vital Signs Temp Pulse Pulse Resp BP BP Pulse Ox 01/14/25 18:00 90 22 132/91 96 01/14/25 17:30 91 H 18 131/85 97 01/14/25 17:00 88 20 143/103 H 98 01/14/25 16:49 86 01/14/25 16:30 86 20 143/84 H 96 01/14/25 16:00 86 22 144/88 H 94 01/14/25 15:30 2 L 20 141/94 H 96 01/14/25 15:06 88 24 143/109 H 97 01/14/25 13:00 89 20 120/86 97 01/14/25 11:41 90 18 129/85 98 01/14/25 10:35 91 H 22 151/93 H 94 01/14/25 08:46 116 H 01/14/25 08:45 95 01/14/25 08:45 95 01/14/25 08:45 36.6 C 115 H 26 H 153/110 H 96 01/14/25 08:41 95 01/14/25 08:41 36.6 C 114 H 20 153/110 H 96 O2 Del Method 01/14/25 18:00 Room Air 01/14/25 17:30 Room Air 01/14/25 17:00 Room Air 01/14/25 16:49 01/14/25 16:30 Room Air 01/14/25 16:00 Room Air 01/14/25 15:30 Room Air 01/14/25 15:06 Room Air 01/14/25 13:00 Room Air 01/14/25 11:41 Room Air 01/14/25 10:35 Room Air 01/14/25 08:46 01/14/25 08:45 Room Air 01/14/25 08:45 Room Air 01/14/25 08:45 Room Air 01/14/25 08:41 Room Air 01/14/25 08:41 Room Air Laboratory Results White blood count of 13K which is left shifted, normal hemoglobin and platelet count, normal coags. Troponin negative x 2. Normal chemistry panel calcium of 10, normal LFTs, albumin 4.0, normal lipase recent outpatient labs include B12 level in the 120s, TSH 0.19 but free T4 in normal range at 1.09. Diagnostic Findings CTA chest negative for pulmonary embolism and any consolidations chest x-ray clear KUB of abdomen, report not available, per my interpretation of the film probably normal bowel gas pattern no air/fluid levels, some increased gas in right side of abdomen ECG Additional Comments: personally reviewed EKG tracing it is normal sinus rhythm probably, extremely poor baseline due to muscle movements difficult to interpret Code Status & VTE Plan VTE Prophylaxis Plan VTE Prophylaxis will be ordered: Yes PG Care Time/CCT Total # of Minutes Spent Total Time Spent with Patient: Total time spent is greater than 50% in coordination of care (as documented) at patient's floor/unit and/or counseling patient: Coding Level of Care Code 94838 INT INP/OBS CARE 3/75MIN Diagnoses Acute gastroenteritis K52.9 Major depressive disorder in remission F32.5 Diabetic peripheral neuropathy E11.42 T2DM (type 2 diabetes mellitus) E11.9 H/O: stroke Z86.73 B12 deficiency E53.8 Movement disorder G25.9
[2025-01-14] MEDS: D5W AND 1/2NSS 1,000 ML IV SCH (20:28)
[2025-01-14] MEDS ORDERED: MELATONIN 3 MG TAB PO PRN (22:09)
[2025-01-14] MEDS ORDERED: ACETAMINOPHEN 325 MG TAB PO PRN (22:09)
[2025-01-14] MEDS ORDERED: ALUMINUM/MAGNESIUM SUSP 30 ML UDC PO PRN (22:09)
[2025-01-14] MEDS ORDERED: GLUCAGON FOR INJ 1 MG VIAL SQ PRN (22:09)
[2025-01-14] MEDS ORDERED: GLUCOSE 10 TAB/TUBE PO PRN (22:09)
[2025-01-14] MEDS ORDERED: MAGNESIUM HYDROXIDE SUSP 30 ML UDC PO PRN (22:09)
[2025-01-14] MEDS ORDERED: GLUCOSE 40% GEL 15 GM TUBE PO PRN (22:09)
[2025-01-14] MEDS ORDERED: CARBOHYDRATES FOR HYPOGLYCEMIA PO PRN (22:09)
[2025-01-14] MEDS ORDERED: DEXTROSE 50% 50 ML SYRINGE IV PRN (22:09)
[2025-01-14] MEDS: ATORVASTATIN 40 MG TAB PO SCH (22:34)
[2025-01-14] MEDS: VORTIOXETINE HYDROBROMIDE 20 MG TAB PO SCH (22:34)
[2025-01-14] MEDS: MIRTAZAPINE TAB 15 MG TAB PO SCH (22:34)
[2025-01-14] MEDS: CYANOCOBALAMIN 1000 MCG/ML VIAL IM SCH (22:35)
[2025-01-14] MEDS: THIAMINE HCL 500 MG in SODIUM CHLORIDE 0.9% 50 ML IV SCH (22:35)
[2025-01-14] MEDS: INSULIN ASPART PER UNIT CHARGE SC SCH (23:02)
[2025-01-15] MEDS: LEVOTHYROXINE SODIUM 100 MCG TABLET PO SCH (06:12)
[2025-01-15 07:05] LABS: Hematocrit (blood only) 39.2 % (37.0-47.0); Hemoglobin 12.6 g/dl (12.0-16.0); Mean Corpuscular Hemoglobin 28.3 pg (25.0-34.0); Mean Corpuscular Hgb Conc 32.1 g/dL (32.0-36.0); Mean Corpuscular Volume 88.1 fL (80.0-100.0); Platelet Count 220 K/uL (130-400); RDW Coefficient of Variation 14.3 % (11.5-14.5); RDW Standard Deviation 45.6 fL (36.4-46.3); Red Blood Count 4.45 M/uL (4.20-5.40); White Blood Count 10.53 K/ul (4.8-10.8)
[2025-01-15 07:24] LABS: Albumin Globulin Ratio 1.4 (0.9-2); BUN Creatinine Ratio 14.3 (10-20); Bilirubin,Total 0.7 mg/dl (0.2-1.0); Calcium 9.2 mg/dl (8.6-10.3); Creatinine Clr Calc Pharmacy 85.9 ml/min; Globulin 2.7 gm/dl (2.5-4.0); Potassium 3.6 mmol/L (3.5-5.1); Total Protein 6.5 gm/dl (6.0-8.3)
[2025-01-15 07:43] LABS: Ferritin 15.5 ng/ml (8-388)
[2025-01-15] MEDS: CHOLECALCIFEROL 25 MCG (1000 UNITS) TAB PO SCH (08:27)
[2025-01-15] MEDS: ASPIRIN 81 MG ECTAB PO SCH (08:27)
[2025-01-15] MEDS: LANTUS PER UNIT CHARGE SC SCH (08:36)
[2025-01-15 11:36] LABS: Adenovirus F 40/41 PCR Not Detected (NotDetected); Astrovirus PCR Not Detected (NotDetected); Campylobacter PCR Not Detected (NotDetected); Cryptosporidium PCR Not Detected (NotDetected); Cyclospora cayetanensis PCR Not Detected (NotDetected); Entamoeba histolytica PCR Not Detected (NotDetected); Enteroaggregative E.coli(EAEC) Not Detected (NotDetected); Enteropathogenic E.coli (EPEC) Not Detected (NotDetected); Enterotoxigenic E.coli (ETEC) Not Detected (NotDetected); Giardia lamblia PCR Not Detected (NotDetected); Norovirus GI/GII PCR Not Detected (NotDetected); Plesiomonas shigelloides PCR Not Detected (NotDetected); Rotavirus A PCR Not Detected (NotDetected); Salmonella PCR Not Detected (NotDetected); Sapovirus PCR Not Detected (NotDetected); Shiga-like Toxin E.coli (STEC) Not Detected (NotDetected); Shigella/Enteroinvasive E.coli Not Detected (NotDetected); Vibrio cholerae PCR Not Detected (NotDetected); Vibrio species PCR Not Detected (NotDetected); Yersinia enterocolitica PCR Not Detected (NotDetected)
--- NOTE | 2025-01-15 13:19 | Electrocardiogram Report ---
Test Reason : Blood Pressure : */* mmHG Vent. Rate : 120 BPM Atrial Rate : 120 BPM P-R Int : 168 ms QRS Dur : 64 ms QT Int : 304 ms P-R-T Axes : 27 27 88 degrees QTcB Int : 429 ms Sinus tachycardia Otherwise normal ECG When compared with ECG of 15-Oct-2024 15:45, Borderline criteria for Inferior infarct are no longer Present Nonspecific T wave abnormality no longer evident in Inferior leads Confirmed by Gamal Reaves ([id number]) on 01/15/2025 1:18:38 PM Referred By: REFERRED SELF Confirmed By: Gamal Reaves
--- NOTE | 2025-01-15 18:58 | Hospitalist Progress Note ---
Date of Service January 15, 2025 Assessment & Plan (1) Acute gastroenteritis: (2) Major depressive disorder in remission: (3) Diabetic peripheral neuropathy: (4) T2DM (type 2 diabetes mellitus): (5) H/O: stroke: (6) B12 deficiency: (7) Movement disorder: Plan 69-year-old woman with history of poorly controlled type 2 diabetes admitted with nausea vomiting and diarrhea, she and her boyfriend have had some upper respiratory symptoms with cough no evidence of pneumonia I think this is probably an acute gastroenteritis however she also could have a GI motility disorder related to her diabetes. Boyfriend has no GI symptoms. Denied chronic nausea/vomiting or epigastric pain but is scheduled for GE study 02/18 so she must have some symptom which triggered this study. # acute gastroenteritis - stool BioFire resulted negative. no history of C. difficile or recent antibiotics no fever abdominal pain/tenderness or leukocytosis with C. difficile unlikely. - no longer vomiting but inadequate oral intake throughout the day, ongoing severe diarrhea and dehydrated by this evening with tachycardia - resume IV fluids, imodium PRN - IV ondansetron as needed for nausea with IV Benadryl for backup. Avoiding Compazine Reglan and Phenergan because of movement disorder - has GE study 02/18 - dc home once no longer requiring IV fluids for dehydrating and keeping up adequate oral intake - hopefully in AM - empiric potassium replacement with po 40 meq now - AM BMP Mag # Movement disorder, peripheral neuropathy, ambulatory dysfunction, cognitive impairment? # diabetic neuropathy # B12 deficiency, metformin sounds like this movement disorder is longstanding though not commented on in more remote hospital notes prior to this spring/winter and no previous neurology notes. She does have an appointment with neurology on 02/03 which is in a few weeks. It could be related to her previous left thalamic/capsule CVA however that would not really explain her left-sided symptoms, her brother does have a history of Rtcwriu-Kbpfy-Zmlun which could present this way especially with the muscular atrophy in her hands and calves as well as fasciculations though I do not think this really causes an akathisia, could be EPS from her psychiatric medications and will need to obtain more detailed history although the current low-dose unlikely to cause this. parkinsonism is possible, which can rarely cause akathisia - continue her usual psychiatric medications at this point, psychiatry was consulted last admission did not feel it was medication side effects though that cannot be completely ruled out if previous higher dose antipsychotics - vitamin B12 1000 mcg IM daily while in the hospital - I will empirically replace her thiamine with 500 mg IV every 8 hours times 9 doses or until discharge, then continue oral supplement, ordered B1 level - follow-up with neurology in 2 weeks as scheduled # DM type 2 - last A1c 8's, followed closely in endo clinic -not eating well so reduced glargine by 50%, continue PRN/premeal correctional aspart, off D5 this AM without hypoglycemia. BG has been in goal today -hold OHAs # mood disorder - depression with SA in past -continue trintellix, mirtazapine, rexulti # Hx CVA, recent episode possibly TIA - neuro follow up 02/03, continue ASA and statin. Sounds like she never took the recommended 3 weeks of plavix # hypothyroidism - cont Synthroid. Recent TFTs ok PT/OT SCD's Admission and Anticipated Discharge Date Admission Date: January 14, 2025 Subjective Having ongoing diarrhea today - at least 6 large stools. No further emesis and abdominal discomfort improved. Able to eat a little but only drank a small can of soda today. HR has increased back up to low 110s this afternoon so has become dehydrated once IV fluids were held Physical Exam 2 Physical Exam: Last 24h vitals reviewed GEN: sitting edge of bed on evening visit HEENT: pupils equal, sclerae anicteric, moist MM. rosacea RESP: normal WOB, CTAB CV: tachycardic reg no mrg. Left upper chest wall tenderness to palpation - unchanged ABD: soft/nt/nd +BT : no quach SKIN: warm and dry, no generalized rashes x rosacea NEURO: AOx person, place, and situation, more alert. Face symmetric, speech normal, rest tremor of R hand, constant movements both feet but not as bad as last night, diffuse sarcopenia including atrophy of intraosseus muscles of both hands, both calves, muscle fasciculations right thigh Results & Data Results & Data Vital Signs (Past 12 Hours) Vital Signs Temp Pulse Resp BP Pulse Ox O2 Del Method 01/15/25 14:50 36.8 C 103 H 18 123/73 94 Room Air 01/15/25 07:24 37.3 C 95 H 18 133/85 96 Room Air Laboratory Results 01/15/25 06:47 01/15/25 06:47 PG Care Time/CCT Total # of Minutes Spent Total Time Spent with Patient: Total time spent is greater than 50% in coordination of care (as documented) at patient's floor/unit and/or counseling patient: Coding Level of Care Code 93957 SUB INP/OBS CARE 3/50MIN Diagnoses Acute gastroenteritis K52.9 Major depressive disorder in remission F32.5 Diabetic peripheral neuropathy E11.42 T2DM (type 2 diabetes mellitus) E11.9 H/O: stroke Z86.73 B12 deficiency E53.8 Movement disorder G25.9
[2025-01-15] MEDS: POTASSIUM CHLORIDE CRTAB 20 MEQ TABCR PO ONE (19:48)
[2025-01-15] MEDS: LACTATED RINGER'S 1,000 ML IV SCH (19:48)
[2025-01-15] MEDS: LOPERAMIDE HCL 2 MG CAP PO PRN (19:58)
[2025-01-15 20:36] VITALS: O2SAT 96
[2025-01-16 08:33] LABS: BUN Creatinine Ratio 12.3 (10-20); Calcium 9.7 mg/dl (8.6-10.3); Creatinine Clr Calc Pharmacy 83.2 ml/min; Magnesium 1.4 mg/dl (1.7-2.4); Potassium 3.8 mmol/L (3.5-5.1)
[2025-01-16] MEDS: MAGNESIUM SULFATE / D5W 1 GM/100 ML BAG IV SCH (11:43)
[2025-01-16 15:09] VITALS: BP 129/83; PULSE 93; RESP 18; TEMP 98.2
--- NOTE | 2025-01-16 16:36 | Discharge Summary ---
Discharge Summary Date of Service January 16, 2025 Principal Dx & Hospital Course #1 = Principal Diagnosis (1) Acute gastroenteritis: (2) Major depressive disorder in remission: (3) Diabetic peripheral neuropathy: (4) T2DM (type 2 diabetes mellitus): (5) H/O: stroke: (6) B12 deficiency: (7) Movement disorder: Plan 69-year-old woman with history of poorly controlled type 2 diabetes admitted with nausea vomiting and diarrhea, she and her boyfriend have had some upper respiratory symptoms with cough no evidence of pneumonia I think this is probably an acute gastroenteritis however she also could have a GI motility disorder related to her diabetes. Boyfriend has no GI symptoms. Denied chronic nausea/vomiting or epigastric pain but is scheduled for GE study 02/18 so she must have some symptom which triggered this study. # acute gastroenteritis presented with intractable nausea and vomiting - likely viral based on she and her boyfriend had viral upper respiratory symptoms prior to onset. Respiratory and stool BioFire negative. - Treated with supportive care and resolving - as needed Imodium, Zofran ODT, counseled on adequate hydration - has GE study 02/18 - left upper chest wall tenderness this admission related to vomiting/MSK strain, no evidence of cardiac chest pain - borderline hypokalemia was replaced, potassium normal on BMP today. Hypomagnesemia replace with 2 g IV day of discharge # Movement disorder, peripheral neuropathy, ambulatory dysfunction # diabetic neuropathy # B12 deficiency, metformin sounds like this movement disorder is longstanding though not commented on in more remote hospital notes prior to this spring/winter and no previous neurology notes. She does have an appointment with neurology on 02/03 which is in a few weeks. It could be related to her previous left thalamic/capsule CVA however that would not really explain her left-sided symptoms, her brother does have a history of Mwfghud-Mnfta-Xgqol which could present this way especially with the muscular atrophy in her hands and calves as well as fasciculations though I do not think this really causes an akathisia, could be EPS from her psychiatric medications and will need to obtain more detailed history although the current low-dose unlikely to cause this. parkinsonism is possible, which can rarely cause akathisia - continue her usual psychiatric medications, psychiatry was consulted last admission did not feel it was medication side effects. she stated she had never been on significant doses of any antipsychotics in the past or metoclopramide. - vitamin B12 1000 mcg IM daily while in the hospital, Then resume oral replacement. Follow-up in clinic for recheck of her B12 level - empirically replace thiamine IV in the hospital, B1 level pending. - follow-up with neurology in 2 weeks as scheduled # DM type 2 - last A1c 8's, followed closely in endo clinic - resume insulins, SGLT2 held until diarrhea resolved and no risk of dehydration, follow-up in endocrinology clinic # mood disorder - depression with SA in past -continue trintellix, mirtazapine, rexulti # Hx CVA, recent episode possibly TIA - neuro follow up 02/03, continue ASA and statin. Sounds like she never took the recommended 3 weeks of plavix # hypothyroidism - cont Synthroid. Recent TFTs ok Notes For Next Care Provider B1 level pending please follow-up B12 level to ensure replacement chronic movement disorderplease evaluate during neurology appointment 02/03 Admission HPI Per Admitting Provider 69-year-old woman with longstanding poorly controlled diabetes who came in with nausea and vomiting. This started yesterday initially it was posttussive emesis. She had a cough starting yesterday that is not productive. Her boyfriend has also had upper respiratory symptoms including cough. Said she came to the ED she has had multiple episodes of emesis but has not been posttussive. It did not resolve after several doses of ondansetron she was also given Toradol for some left-sided chest pain which also started since yesterday. She denies any previous history of nausea and vomiting problems however I note that she has a gastric emptying study scheduled February 18 which suggests chronicity. This afternoon she did have a large diarrhea stool. She denies any abdominal pain or back pain. Her boyfriend has not had diarrhea. No antibiotics in the last 6 months or so, no known history of C. difficile. It is notable that she has continuous movements with rest tremor of her right hand and constant movement of her bilateral lower extremities. They state this is longstanding and she is "always like this" she was recently evaluated in the ED for strokelike symptoms which was treated as a TIA with aspirin and 3 weeks of Plavix, however, outpatient notes state that she did never picked up the Plavix. 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 She also has a low B12 level twice since August including 12/08/24 but had not been taking any B12. oral B12 was started by endocrine clinic late December. she has longstanding lower extremity neuropathy symptoms which she has attributed to "failed back surgery" Obviously she has risk for diabetic neuropathy. She has chronic generalized weakness and ambulatory dysfunction and has used a walker for quite some time. Her medications include Rexulti which is an atypical antipsychotic similar to aripiprazole however dose is very low at 0.5 mg at bedtime. She had psychiatry consultation last admission he did not feel that dose is low should be contribut ing to a movement disorder. Also on mirtazapine and Trintellix without evidence of serotonergic symptoms. she does have neurology follow-up scheduled with Dr. Anne on 02/03 for her strokelike symptoms and history of previous stroke. Discharge Exam Last 24h vitals reviewed GEN: sitting up on the edge of the bed, looks much better HEENT: pupils equal, sclerae anicteric, moist MM. rosacea RESP: normal WOB CV: deferred ABD: soft/nt/nd +BT : no quach SKIN: warm and dry, no generalized rashes x rosacea NEURO: AOx person, place, and situation, more alert and mental status improved, does have some baseline expressive aphasia. Face symmetric, rest tremor of R hand, constant movements both feet/legs, diffuse sarcopenia including atrophy of intraosseus muscles of both hands, both calves, muscle fasciculations right thigh Discharge Plan Discharge Items Patient Disposition: Home - Self-Care Reason For Visit: GASTROENTERITIS Discharge Diagnosis: Acute gastroenteritis Condition on Discharge: Good Activity: Resume your previous activity Non-emergency contact: Primary Care Provider and Neurologist Call non-emergency contact if: you have any medication questions and your symptoms worsen Follow-up/Referrals: Andry Kerr MD [Primary Care Provider] - 01/28/25 2:25 pm (Appt with Dr. Kiran) Diet: Regular Addtl Attending Provider Instructions: You were treated for acute gastroenteritis - nausea/vomiting and diarrhea. This is typically caused by an infection and mostly resolves within several days. Its probably viral in your case You can take zofran (ondansetron) as needed for nausea You can take imodium as needed for diarrhea - this is available in the drug store Stay hydrated! You should be drinking 64 oz of fluid - and more if you're having diarrhea. This includes water, soda, coffee, tea, sports drinks etc If you're eating normally you can resume your usual insulin. If you're eating poorly, reduce your long acting insulin (glargine) by 20-30%. If you're not eating at all (vomiting) you may need to reduce your long acting insulin by 50%. Stool and respiratory swabs did not identify a specific infection You are B12 deficient so I gave you a few B12 injections in the hospital - keep taking the oral supplement. Your doctors should recheck your B12 level in the future to make sure the deficiency is resolving. Its a good idea to take B1 (thiamine) supplement as well. B vitamin deficiencies can cause many problems including neuropathy, cognitive and other neurologic symptoms, anemia, gastrointestinal symptoms Talk to the neurologist Dr. Anne about your abnormal leg movements when you see him February 03. They could be from your old stroke, but there are other causes as well. It was a pleasure taking care of you in the hospital, Lachelle Lewis MD Pending Studies at Discharge: No Stand-Alone Forms: My [facility] [employer] Smoking Cessation Medications and DC Order Prescriptions: New loperamide 2 mg Capsule 2 mg PO Q1H PRNQty: 0 0RF ondansetron 4 mg tablet,disintegrating 4 mg PO Q6H PRN (Reason: nausea and vomiting) Qty: 20 0RF Continued (DME) pen needle, diabetic [BD Ultra-Fine Flores Pen Needle] 32 gauge x 5/32" needle See Rx Instructions miscellaneous .MEDSUPPLY Qty: 100 11RF Rx Instructions: Inject insulin 3 x daily metformin 1,000 mg tablet 1,000 mg PO BID Qty: 180 2RF insulin aspart U-100 [Novolog FlexPen U-100 Insulin] 100 unit/mL (3 mL) insulin pen 6 unit subcut BID Qty: 15 3RF levothyroxine 100 mcg tablet 100 mcg PO DAILY Qty: 90 3RF (DME) FreeStyle Jose Francisco 3 Plus Sensor Device See Rx Instructions .ROUTE Rx Instructions: As directed insulin glargine [Lantus Solostar U-100 Insulin] 100 unit/mL (3 mL) insulin pen 16 unit subcut QAM Qty: 15 3RF (DME) Ketostix Strip See Rx Instructions miscellaneous .MEDSUPPLY Qty: 25 2RF Rx Instructions: Test as needed to monitor for ketones in urine Januvia 100 mg tablet 100 mg PO DAILY Qty: 30 4RF cholecalciferol (vitamin D3) 25 mcg (1,000 unit) capsule 25 mcg PO DAILY Qty: 30 5RF aspirin [Ecotrin Low Strength] 81 mg Tablet,Delayed Release (Dr/Ec) 81 mg PO QAM Qty: 30 0RF Trintellix 20 mg tablet 20 mg PO QPM mirtazapine 30 mg tablet 30 mg PO HS Rexulti 0.5 mg tablet 0.5 mg PO HS atorvastatin 20 mg tablet 40 mg PO QPM Held Invokana 100 mg tablet 100 mg PO QAM Qty: 30 5RF Hold Instructions: Resume on 01/23/25. hold until diarrhea is better and no risk of dehydration Discharge Orders: Discharge Order (Routine); Ordered 01/16/25 Ordered By: Lachelle Mcintyre/Other Patient Handouts: ED Gastroenteritis, Viral (Adult) Admission Data Admit Date/Time: 01/14/25 19:52 Attending Provider: Lachelle Lewis Admit Provider: Lachelle Lewis Primary Care Provider: Andry Kerr Other Providers: Lachelle Lewis Other Interventions: Discharge Summary Assessment (RN) Last Done: 01/16/25 10:20 Hospital Stay Data Consultations 01/14/25 18:34 ED Decision to Admit Stat Diagnostic Imagining Performed 01/14/25 12:24 CT angio chest PE protocol Stat Pending Results Patient Have Any Pending Studies at Discharge: No Discharge Instructions Given to Patient (Per Discharging Provider) You were treated for acute gastroenteritis - nausea/vomiting and diarrhea. This is typically caused by an infection and mostly resolves within several days. Its probably viral in your case You can take zofran (ondansetron) as needed for nausea You can take imodium as needed for diarrhea - this is available in the drug store Stay hydrated! You should be drinking 64 oz of fluid - and more if you're having diarrhea. This includes water, soda, coffee, tea, sports drinks etc If you're eating normally you can resume your usual insulin. If you're eating poorly, reduce your long acting insulin (glargine) by 20-30%. If you're not eating at all (vomiting) you may need to reduce your long acting insulin by 50%. Stool and respiratory swabs did not identify a specific infection You are B12 deficient so I gave you a few B12 injections in the hospital - keep taking the oral supplement. Your doctors should recheck your B12 level in the future to make sure the deficiency is resolving. Its a good idea to take B1 (thiamine) supplement as well. B vitamin deficiencies can cause many problems including neuropathy, cognitive and other neurologic symptoms, anemia, gastrointestinal symptoms Talk to the neurologist Dr. Anne about your abnormal leg movements when you see him February 03. They could be from your old stroke, but there are other causes as well. It was a pleasure taking care of you in the hospital, Lachelle Lewis MD Total Time Total Time Spent Total Time Spent (In Minutes): I personally spent: 35 minutes today on clinical care activities including: reviewing chart notes and vital signs reviewing labs examining and counseling the patient writing orders writing prescriptions, discharge instructions documentation Coding Level of Care Code 92142 INP/OBS DISCH >30 MIN Diagnoses Acute gastroenteritis K52.9 Major depressive disorder in remission F32.5 Diabetic peripheral neuropathy E11.42 T2DM (type 2 diabetes mellitus) E11.9 H/O: stroke Z86.73 B12 deficiency E53.8 Movement disorder G25.9
== END 2025-01-16 15:57 | disposition home or self-care (01) ==
LOC: ED 08:33 → 3N 08:33

== ENCOUNTER 2025-01-23 17:26 | Observation (INO) ==
--- NOTE | 2025-01-23 17:33 | Emergency Department Note ---
Impression & Plan Acute dehydration, Abdominal pain, Diarrhea, Hypomagnesemia ED Provider Note CHIEF COMPLAINT: Abdominal pain HISTORY OF PRESENTING ILLNESS: The patient is a pleasant, 69-year-old female who presents to the emergency department for evaluation of diffuse low abdominal pain. The patient stats the pain began today upon waking, she then developed diarrhea this afternoon. She denies fever, nausea, or vomiting. She states no chest pain, shob, or dysuria. She is tachycardic with otherwise stable vital signs. REVIEW OF SYSTEMS: See HPI for pertinent positives and pertinent negatives. ALLERGIES: See below MEDICATIONS: See below PAST MEDICAL HISTORY: See below PHYSICAL EXAM: VITALS: Vitals are noted on the nurse's note and reviewed by myself. Tachycardia present. GENERAL: 69-year-old female, in mild distress, nondiaphoretic, well-developed well-nourished. SKIN: The skin was without rashes, erythema, edema, or bruising. HEAD: Normocephalic atraumatic. EYES: Pupils equal round and reactive to light and accommodation. Conjunctivae without injection, sclerae without icterus. Extraocular movements intact. MOUTH: Mucous membranes moist. No tonsillar hypertrophy. Pharynx without erythema or exudate. Uvula midline. Airway patent. Tongue does not deviate. NECK: Supple without nuchal rigidity. No lymphadenopathy. No thyromegaly. No JVD. HEART: Tachycardia with regular rhythm without murmurs gallops or rubs. LUNGS: Clear to auscultation bilaterally without wheezes, rales or rhonchi. No retractions or accessory muscle use. ABDOMEN: Positive bowel sounds x 4. Soft, diffuse TTP low abdomen, no rebound tenderness or guarding. MUSCULOSKELETAL: No muscle atrophy, erythema, or edema noted. Strength 5/5 throughout. NEURO: Patient was alert and oriented to person place and time. No focal neurological deficits. DIFFERENTIAL DIAGNOSIS: Appendicitis, infections, diverticulitis, UTI, obstruction, mesenteric ischemia, aortic pathology, inflammatory bowel disease, renal colic, PUD, pancreatitis, biliary pathology, hernia, volvulus, constipation, as well as other pathologies. ED COURSE AND MEDICAL DECISION MAKING: MEDICATIONS GIVEN: 2 L NSS bolus, 2 g IV magnesium MONITOR: Continuous secured entrance monitor: Order was placed for continuous secured entrance monitor. Patient was placed on the secured entrance monitor and continuous pulse ox. Patient was noted to be in normal sinus rhythm at an initial rate of 113 bpm per my interpretation. EKG: EKG was interpreted by myself as sinus tachycardia at a rate of 113bpm with no ST elevation, or depression, and no concerning changes from previous of 01/17/25. INTERPRETATION OF LABS: I interpreted the labs with full lab results as below in the lab section of this note. Pertinent lab results discussed in the MDM section below. INTERPRETATION OF IMAGING: Imaging studies were interpreted by myself and read by radiology as per the imaging section of this note. CHRONIC MEDICAL/SOCIAL CONDITIONS AFFECTING CARE: DMII, CVA, Movement disorder ESCALATION OF CARE CONSIDERED: Admission indicated as the patient has an elevated lactic acid despite IV hydration, as well as hypomagnesemia, and diffuse abdominal pain with diarrhea. [facility] SUMMARY: The patient is a pleasant, 69-year-old female who arrives to the emergency department for evaluation of the above-stated complaint. A saline lock was established, CBC, CMP, lactate, lipase, troponin, urinalysis were obtained. CBC shows no leukocytosis, no anemia. CMP shows slightly elevated anion gap, glucose 208, magnesium 1.5. Initial lactate 4.2, with repeat 2.4 after 2 L of hydration. Patient was repleted with 2 g of IV magnesium. Troponin 4.5, lipase negative. Urinalysis shows 3+ glucose, however no concerning infectious findings. EKG interpreted as above. Diagnostic imaging shows no evidence of significant vascular abnormalities, no acute infectious or surgical findings. Stool culture, as well as C. difficile were obtained. I spoke with Dr. Khan from the [facility] hospitalist group, who agreed to evaluate the patient for admission. The patient will be admitted for hydration, and further evaluation. Please refer to his documentation for further patient workup and care. DIAGNOSIS: Dehydration, abdominal pain, diarrhea, hypomagnesemia The patient's case was discussed with Dr. Mohr, who agreed with my evaluation and treatment plan. The chart was completed utilizing Vivaty voice recognition software. Grammatical errors, random word insertions, pronoun errors, and incomplete sentences are an occasional consequence of this system due to software limitations, ambient noise, and hardware issues. Any formal questions or concerns about the content, text, or information contained within the body of this dictation should be directly addressed to the provider for clarification. Past Med/Surg History Problem List (Updated 01/23/25 @ 21:51 by KIMBERLEY Orozco) Hypomagnesemia (Acute) Diarrhea (Acute) Abdominal pain (Acute) Failure of outpatient treatment (Acute) Acute dehydration (Acute) Vomiting and diarrhea (Acute) Tachycardia (Acute) Movement disorder B12 deficiency Acute gastroenteritis Major depressive disorder in remission Diabetes H/O: stroke Stroke-like symptoms Expressive aphasia Sinus tachycardia (Acute) Nausea (Acute) Dizziness (Acute) Acute bilateral knee pain (Acute) Medical non-compliance Choledocholithiasis Acute calculous cholecystitis Hyperglycemia (Acute) Vitamin D deficiency Failure to thrive Abdominal pain, acute, left upper quadrant (Acute) Norovirus Malaise DVT prophylaxis COVID-19 (Acute) Hypercalcemia (Acute) Cerebrovascular disease Postsurgical hypothyroidism (Chronic) GERD (gastroesophageal reflux disease) Medical History Sinus tachycardia Hyperglycemia due to type 2 diabetes mellitus Restless legs Atrial tachycardia Elevated lactic acid level Hypothyroidism Elevated lactic acid level Hyperglycemia Chest pain Hyperglycemia Abdominal pain Lactic acidemia Abdominal pain Diarrhea Hypoglycemia History of anemia Gout Cervical dysplasia Cerebellar infarct Acute CVA (cerebrovascular accident) Altered mental status Vertigo Hypothyroidism Sensory ataxia Polyneuropathy Major depressive disorder Lumbosacral radiculopathy Hyperlipidemia Encounter for routine gynecological examination Diabetic peripheral neuropathy 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 CVA (cerebral vascular accident) Chronic skin ulcer of right ear Depression with anxiety Weakness TIA (transient ischemic attack) Neurological deficit present Hyperglycemia Dizziness Wound, open, ear, external with complication Suicide attempt Major depressive disorder, recurrent episode, severe with anxious distress Lumbar stenosis with neurogenic claudication Lower extremity weakness Intractable low back pain Hypotension Hypokalemia Hypertension HNP (herniated nucleus pulposus), lumbar Fecal impaction Dyslipidemia DKA (diabetic ketoacidoses) Constipation Chest pain Anxiety Altered mental status Acute gastritis Surgical History Hx laparoscopic cholecystectomy (08/16/23) Robotic Laparoscopic Cholecystectomy - Stephen Talley DO, FACS History of total abdominal hysterectomy H/O laparoscopy Status post hysteroscopic ablation of endometrium H/O dilation and curettage History of dental surgery History of colposcopy with cervical biopsy Previous back surgery History of tonsillectomy Status post lumbar spine surgery for decompression of spinal cord H/O cardiac catheterization History of hysterectomy Family History Mother , in her early 70s of some sort of cancer (patient not clear if it was breast cancer) Breast cancer Diabetes Grandmother Breast cancer Grandmother Breast cancer Unknown Colon cancer Father , Diet it age 78 of a myelodysplastic syndrome. He also had Jaregco-Muuob-Bpoum disease. Myelodysplasia (myelodysplastic syndrome) Rooefxe-Rnmyn-Joldz disease Heart disease Brother Frmsncs-Hqybo-Kemed disease Other No pertinent family history in first degree relatives Social History Smoking Status: Never smoker Second Hand Exposure: No; Do You Dip or Chew Tobacco: No; Hx Alcohol Use: No Hx Substance Use: No Preferred Language: Italian Communication Ability: Effective Visual Impairment: No Limitations Front Desk Specialist Required: No Beliefs That Will Affect Care: None marital status: significant other Current Living Situation: Alone Current Living Situation Comment: stays with boyfriend current occupational status: disabled current occupation: Patient used to work at [employer] for 23 years and then [employer] How many Children do You have: 2 other: Retired on disability from her back 3 years ago Feels Safe at Home: Yes Assistive Devices: Walker Allergies Allergies Allergy/AdvReac Type Severity Reaction Status Date / Time cisapride Allergy Intermediate Hives Verified 01/17/25 21:38 doxycycline Allergy Intermediate Rash Verified 01/17/25 21:38 gadobutrol [From Gadavist] Allergy Intermediate Hives Verified 01/17/25 21:38 lansoprazole Allergy Intermediate Hives Verified 01/17/25 21:38 Penicillins Allergy Intermediate Rash Verified 01/17/25 21:38 tetracycline Allergy Intermediate Rash Verified 01/17/25 21:38 Home Meds Home Medications Medication Instructions Recorded Confirmed mirtazapine 30 mg tablet 30 mg PO HS 05/04/18 01/23/25 vortioxetine 20 mg tablet 20 mg PO QPM 06/06/19 01/23/25 (Trintellix) brexpiprazole 0.5 mg tablet 0.5 mg PO HS 11/06/23 01/23/25 (Rexulti) blood-glucose sensor (FreeStyle 12/17/24 01/14/25 Jose Francisco 3 Plus Sensor device) atorvastatin 20 mg tablet 40 mg PO QPM 01/14/25 01/23/25 Previous Rx's Medication Instructions Recorded aspirin 81 mg tablet,delayed 81 mg PO QAM #30 tabs 03/02/19 release (Ecotrin Low Strength) pen needle, diabetic 32 gauge x #100 ea 09/12/23" (BD Ultra-Fine Flores Pen Needle) acetone (urine) test (Ketostix #25 ea 03/06/24 strips) metformin 1,000 mg tablet 1,000 mg PO BID #180 tabs 10/20/24 cholecalciferol (vitamin D3) 25 25 mcg PO DAILY #30 caps 10/27/24 mcg (1,000 unit) capsule sitagliptin phosphate 100 mg 100 mg PO DAILY #30 tabs 10/27/24 tablet (Januvia) canagliflozin 100 mg tablet 100 mg PO QAM #30 tabs 11/04/24 (Invokana) Novolog FlexPen U-100 Insulin 100 6 unit (0.06 mL) subcut BID #15 mL 11/25/24 unit/mL (3 mL) subcutaneous (insulin aspart U-100) levothyroxine 100 mcg tablet 100 mcg PO DAILY #90 tabs 12/08/24 loperamide 2 mg capsule 2 mg PO Q1H PRN #0 caps 01/16/25 ondansetron 4 mg disintegrating 4 mg PO Q6H PRN nausea and 01/16/25 tablet vomiting #20 tabs cyanocobalamin (vitamin B-12) 500 1,000 mcg (2 x 500 mcg) PO QAM #30 01/18/25 mcg tablet tabs thiamine HCl (vitamin B1) 100 mg 100 mg PO QAM #30 tabs 01/18/25 tablet Lantus Solostar U-100 Insulin 100 16 unit (0.16 mL) subcut QAM #15 mL 01/19/25 unit/mL (3 mL) subcutaneous pen (insulin glargine) Results & Data (ED) Vital Signs Vital Signs - 24 hr 01/23/25 17:27 01/23/25 18:11 01/23/25 18:12 Temperature 36.4 C L Temperature Source Temporal Artery Scan Pulse Rate 126 H Pulse Rate [Apical] 107 H Pulse Rate from SpO2 Sensor Pulse Rhythm [Apical] Pulse Strength [Apical] Respiratory Rate 18 19 Respiratory Effort / Characteristics Non-Labored Spontaneous Non-Labored Spontaneous Respiratory Depth Normal Normal Respiratory Pattern Regular Blood Pressure 135/79 154/89 H Blood Pressure [Right Arm] 154/89 H Blood Pressure Mean 97 104 Blood Pressure Mean [Right Arm] 110 Blood Pressure Position [Right Arm] Semi-fowlers Pulse Oximetry 96 96 Oxygen Delivery Method Room Air Room Air Sepsis Recent Fever Within 48 Hours No Sepsis New/Unexplained Change in Mental Status N/A Sepsis Action Taken by Nursing No Action Required 01/23/25 18:12 01/23/25 18:12 01/23/25 18:13 Temperature Temperature Source Pulse Rate 108 H 108 H 106 H Pulse Rate [Apical] Pulse Rate from SpO2 Sensor 105 H Pulse Rhythm [Apical] Pulse Strength [Apical] Respiratory Rate 18 24 Respiratory Effort / Characteristics Respiratory Depth Respiratory Pattern Blood Pressure Blood Pressure [Right Arm] Blood Pressure Mean Blood Pressure Mean [Right Arm] Blood Pressure Position [Right Arm] Pulse Oximetry 97 96 Oxygen Delivery Method Room Air Sepsis Recent Fever Within 48 Hours Sepsis New/Unexplained Change in Mental Status Sepsis Action Taken by Nursing 01/23/25 18:24 01/23/25 18:30 01/23/25 19:00 Temperature Temperature Source Pulse Rate 101 H 103 H Pulse Rate [Apical] Pulse Rate from SpO2 Sensor 102 H 103 H Pulse Rhythm [Apical] Pulse Strength [Apical] Respiratory Rate 20 20 Respiratory Effort / Characteristics Respiratory Depth Respiratory Pattern Blood Pressure 140/80 150/104 H Blood Pressure [Right Arm] Blood Pressure Mean 100 126 Blood Pressure Mean [Right Arm] Blood Pressure Position [Right Arm] Pulse Oximetry 95 96 Oxygen Delivery Method Sepsis Recent Fever Within 48 Hours Sepsis New/Unexplained Change in Mental Status Sepsis Action Taken by Nursing 01/23/25 19:00 01/23/25 19:06 01/23/25 19:36 Temperature Temperature Source Pulse Rate 102 H 100 H Pulse Rate [Apical] Pulse Rate from SpO2 Sensor 103 H 101 H Pulse Rhythm [Apical] Pulse Strength [Apical] Respiratory Rate 21 25 H Respiratory Effort / Characteristics Respiratory Depth Respiratory Pattern Blood Pressure 150/104 H Blood Pressure [Right Arm] Blood Pressure Mean 126 Blood Pressure Mean [Right Arm] Blood Pressure Position [Right Arm] Pulse Oximetry 94 96 Oxygen Delivery Method Sepsis Recent Fever Within 48 Hours Sepsis New/Unexplained Change in Mental Status Sepsis Action Taken by Nursing 01/23/25 19:57 01/23/25 20:00 01/23/25 20:00 Temperature Temperature Source Pulse Rate 96 H Pulse Rate [Apical] Pulse Rate from SpO2 Sensor 98 H Pulse Rhythm [Apical] Pulse Strength [Apical] Respiratory Rate 22 Respiratory Effort / Characteristics Respiratory Depth Respiratory Pattern Blood Pressure 154/98 H 154/98 H Blood Pressure [Right Arm] Blood Pressure Mean 121 121 Blood Pressure Mean [Right Arm] Blood Pressure Position [Right Arm] Pulse Oximetry 96 Oxygen Delivery Method Sepsis Recent Fever Within 48 Hours Sepsis New/Unexplained Change in Mental Status Sepsis Action Taken by Nursing 01/23/25 20:00 01/23/25 20:00 Temperature Temperature Source Pulse Rate Pulse Rate [Apical] 97 H Pulse Rate from SpO2 Sensor Pulse Rhythm [Apical] Regular Pulse Strength [Apical] Normal Respiratory Rate 18 Respiratory Effort / Characteristics Non-Labored Respiratory Depth Normal Respiratory Pattern Regular Blood Pressure 154/98 H Blood Pressure [Right Arm] 152/98 H Blood Pressure Mean 121 Blood Pressure Mean [Right Arm] 116 Blood Pressure Position [Right Arm] Sitting Pulse Oximetry 95 Oxygen Delivery Method Room Air Sepsis Recent Fever Within 48 Hours Sepsis New/Unexplained Change in Mental Status Sepsis Action Taken by Detention Medications Current Medication List: was personally reviewed by me Laboratory Data Attestation: I reviewed the patient's lab results. 01/23/25 17:54 01/23/25 17:54 Lab Results 01/23/25 01/23/25 01/23/25 Range/Units 17:54 19:48 21:04 WBC 10.50 (4.8-10.8) K/ul RBC 4.48 (4.20-5.40) M/uL Hgb 12.6 (12.0-16.0) g/dl Hct 38.8 (37.0-47.0) % MCV 86.6 (80.0-100.0) fL MCH 28.1 (25.0-34.0) pg MCHC 32.5 (32.0-36.0) g/dL RDW Std Deviation 44.5 (36.4-46.3) fL RDW Coeff of Maris 14.1 (11.5-14.5) % Plt Count 346 (130-400) K/uL MPV 9.4 (9.4-12.4) fL Immature Gran % (Auto) 0.7 % Neut % (Auto) 62.1 % Lymph % (Auto) 28.2 % [place] % (Auto) 6.5 % Eos % (Auto) 2.1 % Baso % (Auto) 0.4 % Neut # (Auto) 6.53 H (1.40-6.50) K/uL Lymph # (Auto) 2.96 (1.20-3.40) K/uL [place] # (Auto) 0.68 H (0.11-0.59) K/uL Eos # (Auto) 0.22 (0.00-0.50) K/uL Baso # (Auto) 0.04 (0.00-0.20) K/uL Immature Gran # (Auto) 0.07 (0.01-0.20) K/uL Sodium 141 (136-145) mmol/L Potassium 3.7 (3.5-5.1) mmol/L Chloride 105 (98-107) mmol/L Carbon Dioxide 24 (21-32) mmol/L Anion Gap 12 H (3-11) BUN 10 (6-23) mg/dl Creatinine 0.79 (0.6-1.2) mg/dl Est Cr Clr Drug Dosing 68.1 ml/min eGFR 81.43 BUN/Creatinine Ratio 12.7 (10-20) Glucose 208 H (70-99(Fasting)) mg/dl Lactate 4.2 H* 2.4 H* (0.4-2.0) mmol/L Calcium 9.8 (8.6-10.3) mg/dl Magnesium 1.5 L (1.7-2.4) mg/dl Total Bilirubin 0.4 (0.2-1.0) mg/dl AST 15 (13-39) U/L ALT 10 (7-52) U/L Alkaline Phosphatase 59 (34-104) U/L Troponin I High Sens 4.5 (0-14) pg/ml Total Protein 7.0 (6.0-8.3) gm/dl Albumin 3.6 (3.4-5.0) gm/dl Globulin 3.4 (2.5-4.0) gm/dl Albumin/Globulin Ratio 1.1 (0.9-2) Lipase 41 (11-82) U/L Urine Color Yellow Urine Appearance Clear (Clear) Urine pH 5.5 (4.5-7.5) Ur Specific [place] > 1.045 H (1.000-1.030) Urine Protein Negative (Negative) Urine Glucose (UA) 3+ H (Negative) Urine Ketones Negative (Negative) Urine Blood Negative (Negative) Urine Nitrite Negative (Negative) Urine Bilirubin Negative (Negative) Urine Urobilinogen Negative (Negative) Ur Leukocyte Esterase Negative (Negative) Urine Comment Administered Medications Magnesium Sulfate/Dextrose (Magnesium Sulfate / D5w) 1 gm in 100 mls @ 50 mls/hr IV Q2H COURTNEY Stop: 01/23/25 23:14 Last Admin: 01/23/25 21:32 Dose: 50 mls/hr Documented By: Infusion: 01/23/25 21:32 Dose: Infused Documented By: Admin: 01/23/25 19:28 Dose: 50 mls/hr Documented By: DARLENE Discontinued Medications Sodium Chloride (Nss) 1,000 mls @ 999 mls/hr IV .Q1H1M STA Stop: 01/23/25 18:48 Last Infusion: 01/23/25 19:32 Dose: Infused Documented By: Admin: 01/23/25 18:12 Dose: 999 mls/hr Documented By: RONEL Sodium Chloride (Nss) 1,000 mls @ 999 mls/hr IV .Q1H1M ONE Stop: 01/23/25 19:25 Last Infusion: 01/23/25 20:02 Dose: Infused Documented By: Admin: 01/23/25 18:41 Dose: 999 mls/hr Documented By: JÚNIOR Ioversol (Optiray 320 125ml) 115 ml IV ONCE ONE Stop: 01/23/25 18:54 Last Admin: 01/23/25 18:53 Dose: 115 ml Documented By: JANELL Imaging Data Attestation: I personally reviewed and interpreted this imaging study as follows: Radiologist's Impression: Abdomen/Pelvis CTA 01/23/25 18:35 EXAM: CT angio abdomen pelvis w con CLINICAL HISTORY: abd pain TECHNIQUE: CTA of the abdomen and pelvis was performed with IV contrast. Coronal and sagittal reconstructive images were also obtained. One of these 3D techniques was utilized: Maximum Intensity Pixel (MIP), 3D Reconstructed Images, Volume Rendered Images, Surface Shaded Rendering. Axial non-contrast sections of the abdomen and pelvis were also obtained. One of the following dose reduction techniques was utilized for this exam. Automated exposure control, adjustment of the mA and/or kV according to patient size, and use of iterative reconstruction. CTDI: DLP: COMPARISON: prior 11/23/2024 FINDINGS: Aorta: The abdominal aorta is normal in caliber. No evidence of aneurysm, dissection, or significant atherosclerotic changes. eccentric soft tuee mural plaque noted at the infrarenal aorta causing about 3o% diameter stenosis (Non hemodynamically significant stenosis) Aortic bifurcation is unremarkable. Renal Arteries: Renal arteries are normal in size and opacification. No evidence of stenosis or occlusion. Symmetrical perfusion of both kidneys. Mesenteric Arteries: Superior mesenteric artery (SMA) and inferior mesenteric artery (AMBROSE) are normal in caliber and opacification. No evidence of stenosis or occlusion. Celiac Artery: The celiac artery is normal in caliber and opacification. No evidence of stenosis or occlusion. Iliac Arteries: Common, internal, and external iliac arteries are normal in caliber and opacification. No evidence of stenosis, aneurysm, or s Few scattered calcifications were noted at both common illiac arteries, causing minimal significant occlusion. Liver: Normal size and morphology. Homogeneous enhancement post-contrast. No focal hepatic lesions. Gallbladder and Biliary System: Normal appearance of the gallbladder and biliary ducts. No stones or dilatation. Pancreas: Normal size and contour. Homogeneous enhancement post-contrast. No masses or cystic lesions. Spleen: Normal size and appearance. Homogeneous enhancement post-contrast. Adrenal Glands: Normal size and morphology bilaterally. No adrenal masses. Kidneys and Ureters: Normal size, shape, and position of both kidneys. Homogeneous enhancement post-contrast. No renal stones, masses, or hydronephrosis. Ureters are unremarkable. 13 x 12 mm simple cortical cyst seen at the left kidney Bladder: Normal in size and wall thickness. No intraluminal masses. Normal enhancement post-contrast. Bowel: Normal appearance of the visualized bowel loops. No evidence of obstruction, wall thickening, or abnormal dilatation. Multiple non-complicated colonic diverticulosis are seen. Lymph Nodes: No pathologically enlarged lymph nodes in the abdomen or pelvis. Peritoneum: No free fluid or free air in the abdomen. Bones: No lytic or sclerotic lesions. Normal alignment and bone density. Soft Tissues: Normal appearance of the visualized soft tissues. Scanned lower chest cuts: unremarkable L4/L5/S1 transpedicular fixation still noted L3 vertebral body benign-looking lesion, likely atypical hemangioma IMPRESSION: 1. No evidence of significant vascular abnormalities. 2. No acute abnormalities 3. No significant time interval changes 4. The previously reported tiny hepatic and splenic lesions are not appreciated at the current study (could be contrast phase related) Electronically signed by Adelfo Russo 01-23-2025 9:30 PM Discharge Plan Visit Data Chief Complaint: Abdominal Pain Stated Complaint: ABD PAIN ED Provider: Silverio Mohr ED Midlevel Provider: Emily Dowd Discharge Problem: Acute dehydration, Abdominal pain, Diarrhea, Hypomagnesemia Forms Stand Alone Forms: [facility] Medical Prescriptions Prescriptions: No Action (DME) pen needle, diabetic [BD Ultra-Fine Flores Pen Needle] 32 gauge x 5/32" needle See Rx Instructions miscellaneous .MEDSUPPLY Qty: 100 11RF Rx Instructions: Inject insulin 3 x daily metformin 1,000 mg tablet 1,000 mg PO BID Qty: 180 2RF Hold Instructions: Resume on 01/25/25. Invokana 100 mg tablet 100 mg PO QAM Qty: 30 5RF Hold Instructions: Resume on 01/23/25. hold until diarrhea is better and no risk of dehydration insulin aspart U-100 [Novolog FlexPen U-100 Insulin] 100 unit/mL (3 mL) insulin pen 6 unit subcut BID Qty: 15 3RF levothyroxine 100 mcg tablet 100 mcg PO DAILY Qty: 90 3RF insulin glargine [Lantus Solostar U-100 Insulin] 100 unit/mL (3 mL) insulin pen 16 unit subcut QAM Qty: 15 3RF (DME) FreeStyle Jose Francisco 3 Plus Sensor Device See Rx Instructions .ROUTE Rx Instructions: As directed (DME) Ketostix Strip See Rx Instructions miscellaneous .MEDSUPPLY Qty: 25 2RF Rx Instructions: Test as needed to monitor for ketones in urine Januvia 100 mg tablet 100 mg PO DAILY Qty: 30 4RF Hold Instructions: Resume on 01/26/25. hold if you are having nausea/vomiting/diarrhea, otherwise continue cholecalciferol (vitamin D3) 25 mcg (1,000 unit) capsule 25 mcg PO DAILY Qty: 30 5RF aspirin [Ecotrin Low Strength] 81 mg Tablet,Delayed Release (Dr/Ec) 81 mg PO QAM Qty: 30 0RF Trintellix 20 mg tablet 20 mg PO QPM mirtazapine 30 mg tablet 30 mg PO HS Rexulti 0.5 mg tablet 0.5 mg PO HS atorvastatin 20 mg tablet 40 mg PO QPM loperamide 2 mg Capsule 2 mg PO Q1H PRNQty: 0 0RF ondansetron 4 mg tablet,disintegrating 4 mg PO Q6H PRN (Reason: nausea and vomiting) Qty: 20 0RF thiamine HCl (vitamin B1) 100 mg Tablet 100 mg PO QAM Qty: 30 0RF cyanocobalamin (vitamin B-12) 500 mcg Tablet 1,000 mcg PO QAM Qty: 30 0RF Referrals Referrals: Andry Kerr MD [Primary Care Provider] -
[2025-01-23 18:12] LABS: Basophils # (auto) 0.04 K/uL (0.00-0.20); Basophils % (auto) 0.4 %; Eosinophils # (auto) 0.22 K/uL (0.00-0.50); Eosinophils % (auto) 2.1 %; Hematocrit (blood only) 38.8 % (37.0-47.0); Hemoglobin 12.6 g/dl (12.0-16.0); Immature Granulocytes # (auto) 0.07 K/uL (0.01-0.20); Immature Granulocytes % (auto) 0.7 %; Lymphocytes # (auto) 2.96 K/uL (1.20-3.40); Lymphocytes % (auto) 28.2 %; Mean Corpuscular Hemoglobin 28.1 pg (25.0-34.0); Mean Corpuscular Hgb Conc 32.5 g/dL (32.0-36.0); Mean Corpuscular Volume 86.6 fL (80.0-100.0); Mean Platelet Volume 9.4 fL (9.4-12.4); Monocytes # (auto) 0.68 K/uL (0.11-0.59); Monocytes % (auto) 6.5 %; Neutrophils # (auto) 6.53 K/uL (1.40-6.50); Neutrophils % (auto) 62.1 %; Platelet Count 346 K/uL (130-400); RDW Coefficient of Variation 14.1 % (11.5-14.5); RDW Standard Deviation 44.5 fL (36.4-46.3); Red Blood Count 4.48 M/uL (4.20-5.40)
[2025-01-23] MEDS: SODIUM CHLORIDE 0.9% 1,000 ML IV STA (18:12)
[2025-01-23 18:39] LABS: Troponin I High Sensitivity 4.5 pg/ml (0-14)
[2025-01-23 18:41] LABS: Albumin Globulin Ratio 1.1 (0.9-2); Albumin Level 3.6 gm/dl (3.4-5.0); BUN Creatinine Ratio 12.7 (10-20); Bilirubin,Total 0.4 mg/dl (0.2-1.0); Calcium 9.8 mg/dl (8.6-10.3); Creatinine Clr Calc Pharmacy 68.1 ml/min; Globulin 3.4 gm/dl (2.5-4.0); Potassium 3.7 mmol/L (3.5-5.1)
[2025-01-23] MEDS: SODIUM CHLORIDE 0.9% 1,000 ML IV ONE (18:41)
[2025-01-23] MEDS: OPTIRAY 320 125ml IV ONE (18:53)
[2025-01-23 19:10] LABS: Magnesium 1.5 mg/dl (1.7-2.4)
[2025-01-23] MEDS: MAGNESIUM SULFATE / D5W 1 GM/100 ML BAG IV SCH (19:28)
[2025-01-23 20:00] LABS: Appearance Urine Clear (Clear); Bilirubin Urine Negative (Negative); Blood Urine Negative (Negative); Color Urine Yellow; Glucose Urine UA 3+ (Negative); Ketones Urine Negative (Negative); Leukocyte Esterase Urine Negative (Negative); Nitrite Urine Negative (Negative); Protein Urine Negative (Negative); Specific Gravity Urine > 1.045 (1.000-1.030); Urobilinogen Urine Negative (Negative); pH Urine 5.5 (4.5-7.5)
--- NOTE | 2025-01-23 21:30 | CT Scan Report ---
EXAM: CT angio abdomen pelvis w con CLINICAL HISTORY: abd pain TECHNIQUE: CTA of the abdomen and pelvis was performed with IV contrast. Coronal and sagittal reconstructive images were also obtained. One of these 3D techniques was utilized: Maximum Intensity Pixel (MIP), 3D Reconstructed Images, Volume Rendered Images, Surface Shaded Rendering. Axial non-contrast sections of the abdomen and pelvis were also obtained. One of the following dose reduction techniques was utilized for this exam. Automated exposure control, adjustment of the mA and/or kV according to patient size, and use of iterative reconstruction. CTDI: DLP: COMPARISON: prior 11/23/2024 FINDINGS: Aorta: The abdominal aorta is normal in caliber. No evidence of aneurysm, dissection, or significant atherosclerotic changes. eccentric soft tuee mural plaque noted at the infrarenal aorta causing about 3o% diameter stenosis (Non hemodynamically significant stenosis) Aortic bifurcation is unremarkable. Renal Arteries: Renal arteries are normal in size and opacification. No evidence of stenosis or occlusion. Symmetrical perfusion of both kidneys. Mesenteric Arteries: Superior mesenteric artery (SMA) and inferior mesenteric artery (AMBROSE) are normal in caliber and opacification. No evidence of stenosis or occlusion. Celiac Artery: The celiac artery is normal in caliber and opacification. No evidence of stenosis or occlusion. Iliac Arteries: Common, internal, and external iliac arteries are normal in caliber and opacification. No evidence of stenosis, aneurysm, or s Few scattered calcifications were noted at both common illiac arteries, causing minimal significant occlusion. Liver: Normal size and morphology. Homogeneous enhancement post-contrast. No focal hepatic lesions. Gallbladder and Biliary System: Normal appearance of the gallbladder and biliary ducts. No stones or dilatation. Pancreas: Normal size and contour. Homogeneous enhancement post-contrast. No masses or cystic lesions. Spleen: Normal size and appearance. Homogeneous enhancement post-contrast. Adrenal Glands: Normal size and morphology bilaterally. No adrenal masses. Kidneys and Ureters: Normal size, shape, and position of both kidneys. Homogeneous enhancement post-contrast. No renal stones, masses, or hydronephrosis. Ureters are unremarkable. 13 x 12 mm simple cortical cyst seen at the left kidney Bladder: Normal in size and wall thickness. No intraluminal masses. Normal enhancement post-contrast. Bowel: Normal appearance of the visualized bowel loops. No evidence of obstruction, wall thickening, or abnormal dilatation. Multiple non-complicated colonic diverticulosis are seen. Lymph Nodes: No pathologically enlarged lymph nodes in the abdomen or pelvis. Peritoneum: No free fluid or free air in the abdomen. Bones: No lytic or sclerotic lesions. Normal alignment and bone density. Soft Tissues: Normal appearance of the visualized soft tissues. Scanned lower chest cuts: unremarkable L4/L5/S1 transpedicular fixation still noted L3 vertebral body benign-looking lesion, likely atypical hemangioma IMPRESSION: 1. No evidence of significant vascular abnormalities. 2. No acute abnormalities 3. No significant time interval changes 4. The previously reported tiny hepatic and splenic lesions are not appreciated at the current study (could be contrast phase related) Electronically signed by Adelfo Russo 01-23-2025 9:30 PM
--- NOTE | 2025-01-23 22:06 | History & Physical Report ---
Date of Service January 23, 2025 Assessment & Plan (1) Abdominal pain: (2) Hypomagnesemia: (3) T2DM (type 2 diabetes mellitus): Plan 69-year-old female PMHx CVA (2021), FTT, GERD, medication noncompliance, poorly controlled T2DM, movement disorder, and hypothyroidism presenting for abdominal pain and diarrhea. ED evaluation reveals no leukocytosis, stable H&H; CMP AG 12, glucose 208; lactate 2.4; magnesium 1.5; lipase 41; UA negative for infection; CTAP no significant vascular abnormalities, no acute abnormalities.; Provided with 2L NSS, and mag sulfate IV in ED. #Abdominal pain Patient with recent hospitalization 01/17/2025 until 01/18/2025 for acute gastroenteritis. Presenting now with abdominal pain and profuse diarrhea. Metformin was restarted following her most recent discharge after being on held for being a possible contributing factor to her symptoms. - CBC without leukocytosis, no gross electrolyte abnormalities with exception of magnesium 1.5 - CBC am - Lactate 4.2, 2.4 on repeat after 2L NSS - hemodynamically stable and not hypo tensive; received 30 mL/kg fluid bolus (1568 mL) - UA negative for infection - CTAP without acute findings - Stool studies pending - Full liquid diet and advance as tolerates - Zofran prn N/V - Takes loperamide at home - hold until stool studies return; if not infectious, may continue - IVF LR @ 100 mL/hr - Deferred abx at time of admission -- no leukocytosis, no F/V, no CTAP findings - adjust as appropriate #Hypomagnesemia H/o hypomagnesemia; Received 2g mag sulfate IV in ED. - Mg 1.5 - Mg am - MgSO4 2g IV given in ED - Consider adding BID supplementation of magnesium given recurrent hypomag #T2DM H/o DMT2; Home regimen of metformin which is currently on hold, canagliflozin, sitagliptin, lantus 16U am, and novolog 6U BID - Most recent A1C 01/2025 @ 7.9%; Admitting glucose 208 - Hold po medications and insulin for complete glycemic control while inpatient - SSI with target BSG range 110-140mg/dL, CF 45, carb ratio 15 - Lantus 10U am - BSG ACHS - Pharm glycemic management consult placed, appreciate assistance - Adjust regimen as needed #Movement disorder/B12 deficiency- Continue supplements #Psych- Mirtazapine, Rexulti, Trintellix - continue #H/o CVA- ASA + Atorvastatin - continue Dispo: Obs, med/sx VTE Prophylaxis: Lovenox This document was dictated utilizing MogiMe. Please excuse any grammatical errors that may be secondary to use of this software. Admission and Anticipated Discharge Date Admission Date: 01/23/2025 History of Present Illness Chief Complaint: Abdominal pain Primary Care Provider: Andry Kerr MD 69-year-old female PMHx CVA (2021), FTT, GERD, medication noncompliance, poorly controlled T2DM, movement disorder, and hypothyroidism presenting for abdominal pain and diarrhea. Patient states that she feels "rotten" for the past few days. She did restart her metformin since her hospital discharge. Since then, she has been progressively feeling worse and "lousy." States that on the day of arrival, sometime after 1300, she had 3 episodes of very watery stool and abdominal pain. States that she has no current abdominal pain and that earlier it felt like some cramping. She had 3 episodes of loose, watery stools but denies blood or mucus in them. She did not have any nausea or vomiting. No fever or chills. 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 She did not take any laxatives. No recent antibiotic use. No history of C. difficile that she is aware of. She is denying any chest pain, SOB, palpitations, LUTS, numbness/tingling, fever/chills, weakness, syncope, or LOC. No one around her has been sick. She did restart her metformin since her most recent hospital discharge, unable to tell me exactly how many days she has been taking this medication. ED evaluation reveals no leukocytosis, stable H&H; CMP AG 12, glucose 208; lactate 2.4; magnesium 1.5; lipase 41; UA negative for infection; CTAP no significant vascular abnormalities, no acute abnormalities.; Provided with 2L NSS, and mag sulfate IV in ED. Please see Dr. Khan's attestation for adjustments/additions to treatment plan. Allergies Allergy/AdvReac Type Severity Reaction Status Date / Time cisapride Allergy Intermediate Hives Verified 01/17/25 21:38 doxycycline Allergy Intermediate Rash Verified 01/17/25 21:38 gadobutrol [From Gadavist] Allergy Intermediate Hives Verified 01/17/25 21:38 lansoprazole Allergy Intermediate Hives Verified 01/17/25 21:38 Penicillins Allergy Intermediate Rash Verified 01/17/25 21:38 tetracycline Allergy Intermediate Rash Verified 01/17/25 21:38 Home Medications Medication Instructions Recorded Confirmed Type mirtazapine 30 mg tablet 30 mg PO HS 05/04/18 01/23/25 History aspirin 81 mg tablet,delayed 81 mg PO QAM #30 tabs 03/02/19 01/23/25 Rx release (Ecotrin Low Strength) vortioxetine 20 mg tablet 20 mg PO QPM 06/06/19 01/23/25 History (Trintellix) pen needle, diabetic 32 gauge x #100 ea 09/12/23 01/14/25 Rx 5/32" (BD Ultra-Fine Flores Pen Needle) brexpiprazole 0.5 mg tablet 0.5 mg PO HS 11/06/23 01/23/25 History (Rexulti) acetone (urine) test (Ketostix #25 ea 03/06/24 01/14/25 Rx strips) metformin 1,000 mg tablet 1,000 mg PO BID #180 tabs 10/20/24 01/23/25 Rx cholecalciferol (vitamin D3) 25 25 mcg PO DAILY #30 caps 10/27/24 01/23/25 Rx mcg (1,000 unit) capsule sitagliptin phosphate 100 mg 100 mg PO DAILY #30 tabs 10/27/24 01/23/25 Rx tablet (Januvia) canagliflozin 100 mg tablet 100 mg PO QAM #30 tabs 11/04/24 01/23/25 Rx (Invokana) Novolog FlexPen U-100 Insulin 100 6 unit (0.06 mL) subcut BID #15 mL 11/25/24 01/23/25 Rx unit/mL (3 mL) subcutaneous (insulin aspart U-100) levothyroxine 100 mcg tablet 100 mcg PO DAILY #90 tabs 12/08/24 01/23/25 Rx blood-glucose sensor (FreeStyle 12/17/24 01/14/25 History Jose Francisco 3 Plus Sensor device) atorvastatin 20 mg tablet 40 mg PO QPM 01/14/25 01/23/25 History loperamide 2 mg capsule 2 mg PO Q1H PRN #0 caps 01/16/25 01/23/25 Rx ondansetron 4 mg disintegrating 4 mg PO Q6H PRN nausea and 01/16/25 01/23/25 Rx tablet vomiting #20 tabs cyanocobalamin (vitamin B-12) 500 1,000 mcg (2 x 500 mcg) PO QAM #30 01/18/25 01/23/25 Rx mcg tablet tabs thiamine HCl (vitamin B1) 100 mg 100 mg PO QAM #30 tabs 01/18/25 01/23/25 Rx tablet Lantus Solostar U-100 Insulin 100 16 unit (0.16 mL) subcut QAM #15 mL 01/19/25 01/23/25 Rx unit/mL (3 mL) subcutaneous pen (insulin glargine) Past Med/Surg History Problem List Hypomagnesemia (Acute) Diarrhea (Acute) Abdominal pain (Acute) Failure of outpatient treatment (Acute) Acute dehydration (Acute) Vomiting and diarrhea (Acute) Tachycardia (Acute) Movement disorder B12 deficiency Acute gastroenteritis Major depressive disorder in remission Diabetes H/O: stroke Stroke-like symptoms Expressive aphasia Sinus tachycardia (Acute) Nausea (Acute) Dizziness (Acute) Acute bilateral knee pain (Acute) Medical non-compliance Choledocholithiasis Acute calculous cholecystitis Hyperglycemia (Acute) Vitamin D deficiency Failure to thrive Abdominal pain, acute, left upper quadrant (Acute) Norovirus Malaise DVT prophylaxis COVID-19 (Acute) Hypercalcemia (Acute) Cerebrovascular disease Postsurgical hypothyroidism (Chronic) GERD (gastroesophageal reflux disease) Medical History Sinus tachycardia Hyperglycemia due to type 2 diabetes mellitus Restless legs Atrial tachycardia Elevated lactic acid level Hypothyroidism Elevated lactic acid level Hyperglycemia Chest pain Hyperglycemia Abdominal pain Lactic acidemia Abdominal pain Diarrhea Hypoglycemia History of anemia Gout Cervical dysplasia Cerebellar infarct Acute CVA (cerebrovascular accident) Altered mental status Vertigo Hypothyroidism Sensory ataxia Polyneuropathy Major depressive disorder Lumbosacral radiculopathy Hyperlipidemia Encounter for routine gynecological examination Diabetic peripheral neuropathy 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 CVA (cerebral vascular accident) Chronic skin ulcer of right ear Depression with anxiety Weakness TIA (transient ischemic attack) Neurological deficit present Hyperglycemia Dizziness Wound, open, ear, external with complication Suicide attempt Major depressive disorder, recurrent episode, severe with anxious distress Lumbar stenosis with neurogenic claudication Lower extremity weakness Intractable low back pain Hypotension Hypokalemia Hypertension HNP (herniated nucleus pulposus), lumbar Fecal impaction Dyslipidemia DKA (diabetic ketoacidoses) Constipation Chest pain Anxiety Altered mental status Acute gastritis Surgical History Hx laparoscopic cholecystectomy (08/16/23) Robotic Laparoscopic Cholecystectomy - Stephen Talley, DO, FACS History of total abdominal hysterectomy H/O laparoscopy Status post hysteroscopic ablation of endometrium H/O dilation and curettage History of dental surgery History of colposcopy with cervical biopsy Previous back surgery History of tonsillectomy Status post lumbar spine surgery for decompression of spinal cord H/O cardiac catheterization History of hysterectomy Family History Mother , in her early 70s of some sort of cancer (patient not clear if it was breast cancer) Breast cancer Diabetes Grandmother Breast cancer Grandmother Breast cancer Unknown Colon cancer Father , Diet it age 78 of a myelodysplastic syndrome. He also had Vyraxnl-Dwepu-Lzuyk disease. 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 Beliefs That Will Affect Care: None marital status: significant other Current Living Situation: Significant Other Current Living Situation Comment: Lives with boyfriend current occupational status: disabled current occupation: Patient used to work at [employer] for 23 years and then [employer] How many Children do You have: 2 other: Retired on disability from her back 3 years ago Feels Safe at Home: Yes Safety Concerns: Feels Safe At This Time Assistive Devices: Walker Review of Systems Review of Systems: All systems reviewed & are unremarkable except as noted in Subjective Physical Exam Physical Exam: General: No acute distress Skin: Warm and dry Head: Normocephalic, atraumatic Eyes: PERRL, conjunctivae clear, sclera non-icteric ENT: External ear and ear canal without swelling; nose atraumatic; fair dentition, tongue normal appearance, pharynx normal Neck: Supple, no LAD Cardio: Tachycardic, regular rhythm, no M/G/R, S1 and S2 normal Resp: No respiratory distress, Lungs CTA in all lobes bilaterally, no wheezes, rales, or rhonchi Abdomen: Soft, symmetric, generalized tenderness to palpation across abdomen, mild and no peritoneal signs; No masses or hepatosplenomegaly; Bowel sounds normoactive MSK: No deformities; pulses palpable and equal; no edema. Neuro: Awake, alert; Sensation intact bilaterally; CN grossly intact Psych: Abnormal movements consistent with her movement disorder, appropriate mood and affect; good judgement and insight. present in room at time of visit. Results & Data Results & Data Vital Signs (Past 12 Hours) Vital Signs Temp Pulse Pulse Resp BP BP Pulse Ox 01/23/25 20:00 97 H 18 152/98 H 95 01/23/25 20:00 154/98 H 01/23/25 20:00 154/98 H 01/23/25 20:00 154/98 H 01/23/25 19:57 96 H 22 96 01/23/25 19:36 100 H 25 H 96 01/23/25 19:06 102 H 21 94 01/23/25 19:00 150/104 H 01/23/25 19:00 150/104 H 01/23/25 18:30 103 H 20 140/80 96 01/23/25 18:24 101 H 20 95 01/23/25 18:13 106 H 01/23/25 18:12 108 H 24 96 01/23/25 18:12 108 H 18 97 01/23/25 18:12 107 H 19 154/89 H 96 01/23/25 18:11 154/89 H 01/23/25 17:27 36.4 C L 126 H 18 135/79 96 O2 Del Method 01/23/25 20:00 Room Air 01/23/25 20:00 01/23/25 20:00 01/23/25 20:00 01/23/25 19:57 01/23/25 19:36 01/23/25 19:06 01/23/25 19:00 01/23/25 19:00 01/23/25 18:30 01/23/25 18:24 01/23/25 18:13 01/23/25 18:12 01/23/25 18:12 Room Air 01/23/25 18:12 Room Air 01/23/25 18:11 01/23/25 17:27 Room Air Laboratory Results 01/23/25 01/23/25 01/23/25 21:04 19:48 17:54 WBC 10.50 RBC 4.48 Hgb 12.6 Hct 38.8 MCV 86.6 MCH 28.1 MCHC 32.5 RDW Std Deviation 44.5 RDW Coeff of Maris 14.1 Plt Count 346 MPV 9.4 Immature Gran % (Auto) 0.7 Neut % (Auto) 62.1 Lymph % (Auto) 28.2 [place] % (Auto) 6.5 Eos % (Auto) 2.1 Baso % (Auto) 0.4 Neut # (Auto) 6.53 H Lymph # (Auto) 2.96 [place] # (Auto) 0.68 H Eos # (Auto) 0.22 Baso # (Auto) 0.04 Immature Gran # (Auto) 0.07 Sodium 141 Potassium 3.7 Chloride 105 Carbon Dioxide 24 Anion Gap 12 H BUN 10 Creatinine 0.79 Est Cr Clr Drug Dosing 68.1 eGFR 81.43 BUN/Creatinine Ratio 12.7 Glucose 208 H Lactate 2.4 H* 4.2 H* Calcium 9.8 Magnesium 1.5 L Total Bilirubin 0.4 AST 15 ALT 10 Alkaline Phosphatase 59 Troponin I High Sens 4.5 Total Protein 7.0 Albumin 3.6 Globulin 3.4 Albumin/Globulin Ratio 1.1 Lipase 41 Urine Color Yellow Urine Appearance Clear Urine pH 5.5 Ur Specific [place] > 1.045 H Urine Protein Negative Urine Glucose (UA) 3+ H Urine Ketones Negative Urine Blood Negative Urine Nitrite Negative Urine Bilirubin Negative Urine Urobilinogen Negative Ur Leukocyte Esterase Negative Urine Comment Diagnostic Findings Abdomen/Pelvis CTA 01/23/25 18:35 EXAM: CT angio abdomen pelvis w con CLINICAL HISTORY: abd pain TECHNIQUE: CTA of the abdomen and pelvis was performed with IV contrast. Coronal and sagittal reconstructive images were also obtained. One of these 3D techniques was utilized: Maximum Intensity Pixel (MIP), 3D Reconstructed Images, Volume Rendered Images, Surface Shaded Rendering. Axial non-contrast sections of the abdomen and pelvis were also obtained. One of the following dose reduction techniques was utilized for this exam. Automated exposure control, adjustment of the mA and/or kV according to patient size, and use of iterative reconstruction. CTDI: DLP: COMPARISON: prior 11/23/2024 FINDINGS: Aorta: The abdominal aorta is normal in caliber. No evidence of aneurysm, dissection, or significant atherosclerotic changes. eccentric soft tuee mural plaque noted at the infrarenal aorta causing about 3o% diameter stenosis (Non hemodynamically significant stenosis) Aortic bifurcation is unremarkable. Renal Arteries: Renal arteries are normal in size and opacification. No evidence of stenosis or occlusion. Symmetrical perfusion of both kidneys. Mesenteric Arteries: Superior mesenteric artery (SMA) and inferior mesenteric artery (AMBROSE) are normal in caliber and opacification. No evidence of stenosis or occlusion. Celiac Artery: The celiac artery is normal in caliber and opacification. No evidence of stenosis or occlusion. Iliac Arteries: Common, internal, and external iliac arteries are normal in caliber and opacification. No evidence of stenosis, aneurysm, or s Few scattered calcifications were noted at both common illiac arteries, causing minimal significant occlusion. Liver: Normal size and morphology. Homogeneous enhancement post-contrast. No focal hepatic lesions. Gallbladder and Biliary System: Normal appearance of the gallbladder and biliary ducts. No stones or dilatation. Pancreas: Normal size and contour. Homogeneous enhancement post-contrast. No masses or cystic lesions. Spleen: Normal size and appearance. Homogeneous enhancement post-contrast. Adrenal Glands: Normal size and morphology bilaterally. No adrenal masses. Kidneys and Ureters: Normal size, shape, and position of both kidneys. Homogeneous enhancement post-contrast. No renal stones, masses, or hydronephrosis. Ureters are unremarkable. 13 x 12 mm simple cortical cyst seen at the left kidney Bladder: Normal in size and wall thickness. No intraluminal masses. Normal enhancement post-contrast. Bowel: Normal appearance of the visualized bowel loops. No evidence of obstruction, wall thickening, or abnormal dilatation. Multiple non-complicated colonic diverticulosis are seen. Lymph Nodes: No pathologically enlarged lymph nodes in the abdomen or pelvis. Peritoneum: No free fluid or free air in the abdomen. Bones: No lytic or sclerotic lesions. Normal alignment and bone density. Soft Tissues: Normal appearance of the visualized soft tissues. Scanned lower chest cuts: unremarkable L4/L5/S1 transpedicular fixation still noted L3 vertebral body benign-looking lesion, likely atypical hemangioma IMPRESSION: 1. No evidence of significant vascular abnormalities. 2. No acute abnormalities 3. No significant time interval changes 4. The previously reported tiny hepatic and splenic lesions are not appreciated at the current study (could be contrast phase related) Electronically signed by Adelfo Russo 01-23-2025 9:30 PM Medications Administered 2L NSS Mag sulfate 2G IV Code Status & VTE Plan Code Status Full Supervising Physician Co-Signing Physician Notes Attending Attestation & Admit Note: Pt seen/examined, chart reviewed, admit care plan d/w LASHELL Hudson. I agree w/ the garcia components of her admit documentation. 69yo female with history of prior CVA, T2DM, and recent hospitalizations at [facility] - 01/14-01/16, then 01/17-01/18. Both admits were due to abd pain and diarrhea. Returns again with abdominal pain & recurrent diarrhea. No blood per rectum. Recent stool BioFire was negative. 5 CTs of her abd/pelvis dating back to 07/2024 - including today's CTs - have been without acute process. Lipase wnl. LFTs wnl. During my assessment she was resting in bed comfortably watching TV. Reported minimal left-sided abd discomfort. Since arriving to ER she has yet to have any diarrhea VSS, afebrile exam - gen - mildly dysarthric speech with vocal tremor, NAD mouth - MM dry neck - no JVD heart - RRR, s1 s2 lungs - CTA b/l abd - scant tenderness LLQ, otherwise soft/NT/ND/BS+; no HSM; no peritoneal signs ext - no edema, pulses 2+ b/l labs reviewed lactate 4.2 initially, improving to 2.4 after IV fluids CTA a/p - negative; no mesenteric ischemia A/P: Recurrent abdominal pain with recurrent diarrhea - etiology uncertain. Due to metformin?? Infectious? Would repeat Stool Biofire and also obtain c.diff. If infectious w/u is negative consider the following - -GI consult for possible colonoscopy and/or EGD -testing for celiac disease -stopping metformin indefinitely IVF, repeat labs am. Fredi Khan MD PG Care Time/CCT Total # of Minutes Spent Total Time Spent with Patient: Total time spent is greater than 50% in coordination of care (as documented) at patient's floor/unit and/or counseling patient: Coding Level of Care Code 46757 INT INP/OBS CARE 2/55MIN Diagnoses Abdominal pain R10.9 Hypomagnesemia E83.42 T2DM (type 2 diabetes mellitus) E11.9
[2025-01-24] MEDS ORDERED: ALUMINUM/MAGNESIUM SUSP 30 ML UDC PO PRN (00:15)
[2025-01-24] MEDS ORDERED: ACETAMINOPHEN 325 MG TAB PO PRN (00:15)
[2025-01-24] MEDS ORDERED: CARBOHYDRATES FOR HYPOGLYCEMIA PO PRN (00:15)
[2025-01-24] MEDS ORDERED: PHARMACY GLYCEMIC MGMT CONSULT PRN (00:15)
[2025-01-24] MEDS ORDERED: GLUCAGON FOR INJ 1 MG VIAL SQ PRN (00:15)
[2025-01-24] MEDS ORDERED: GLUCOSE 10 TAB/TUBE PO PRN (00:15)
[2025-01-24] MEDS ORDERED: DEXTROSE 50% 50 ML SYRINGE IV PRN (00:15)
[2025-01-24] MEDS ORDERED: ONDANSETRON INJ 2 MG/ML 2 ML VIAL IV PRN (00:15)
[2025-01-24] MEDS ORDERED: GLUCOSE 40% GEL 15 GM TUBE PO PRN (00:15)
[2025-01-24] MEDS: INSULIN ASPART PER UNIT CHARGE SC SCH (01:17)
[2025-01-24] MEDS: LACTATED RINGER'S 1,000 ML IV SCH (01:18)
[2025-01-24] MEDS: ENOXAPARIN INJ 40 MG/0.4 ML SYR SQ SCH (05:24)
[2025-01-24] MEDS: LEVOTHYROXINE SODIUM 100 MCG TABLET PO SCH (05:24)
[2025-01-24 06:36] LABS: Hematocrit (blood only) 34.9 % (37.0-47.0); Hemoglobin 11.1 g/dl (12.0-16.0); Mean Corpuscular Hemoglobin 27.7 pg (25.0-34.0); Mean Corpuscular Hgb Conc 31.8 g/dL (32.0-36.0); Mean Platelet Volume 9.4 fL (9.4-12.4); Platelet Count 302 K/uL (130-400); RDW Standard Deviation 44.9 fL (36.4-46.3); Red Blood Count 4.01 M/uL (4.20-5.40); White Blood Count 7.82 K/ul (4.8-10.8)
[2025-01-24 07:28] LABS: Calcium 8.8 mg/dl (8.6-10.3); Creatinine Clr Calc Pharmacy 90.7 ml/min; Magnesium 1.8 mg/dl (1.7-2.4); Potassium 3.2 mmol/L (3.5-5.1)
[2025-01-24] MEDS: THIAMINE HCL 100 MG TAB PO SCH (07:30)
[2025-01-24] MEDS: CYANOCOBALAMIN (B-12) 500 MCG TABLET PO SCH (07:30)
[2025-01-24] MEDS: ASPIRIN 81 MG ECTAB PO SCH (07:30)
[2025-01-24] MEDS: LANTUS PER UNIT CHARGE SQ SCH (08:21)
[2025-01-24 09:59] LABS: C. diff 027-NAP1-BI NEGATIVE; Cdiff Toxin B Gene (2yr or >) Negative Cdiff Gene (Neg)
[2025-01-24 10:31] LABS: Adenovirus F 40/41 PCR Not Detected (NotDetected); Astrovirus PCR Not Detected (NotDetected); Campylobacter PCR Not Detected (NotDetected); Cryptosporidium PCR Not Detected (NotDetected); Cyclospora cayetanensis PCR Not Detected (NotDetected); Entamoeba histolytica PCR Not Detected (NotDetected); Enteroaggregative E.coli(EAEC) Not Detected (NotDetected); Enteropathogenic E.coli (EPEC) Not Detected (NotDetected); Enterotoxigenic E.coli (ETEC) Not Detected (NotDetected); Giardia lamblia PCR Not Detected (NotDetected); Norovirus GI/GII PCR Not Detected (NotDetected); Plesiomonas shigelloides PCR Not Detected (NotDetected); Rotavirus A PCR Not Detected (NotDetected); Salmonella PCR Not Detected (NotDetected); Sapovirus PCR Not Detected (NotDetected); Shiga-like Toxin E.coli (STEC) Not Detected (NotDetected); Shigella/Enteroinvasive E.coli Not Detected (NotDetected); Vibrio cholerae PCR Not Detected (NotDetected); Vibrio species PCR Not Detected (NotDetected); Yersinia enterocolitica PCR Not Detected (NotDetected)
--- NOTE | 2025-01-24 11:19 | Hospitalist Progress Note ---
Date of Service January 24, 2025 Assessment & Plan (1) Abdominal pain: (2) Hypomagnesemia: (3) T2DM (type 2 diabetes mellitus): Plan 69-year-old female PMHx CVA (2021), FTT, GERD, medication noncompliance, poorly controlled T2DM, movement disorder, and hypothyroidism presenting for abdominal pain and diarrhea. ED evaluation reveals no leukocytosis, stable H&H; CMP AG 12, glucose 208; lactate 2.4; magnesium 1.5; lipase 41; UA negative for infection; CTAP no significant vascular abnormalities, no acute abnormalities.; Provided with 2L NSS, and mag sulfate IV in ED. #Abdominal pain Patient with recent hospitalization 01/17/2025 until 01/18/2025 for acute gastroenteritis. Presenting now with abdominal pain and profuse diarrhea. Metformin was restarted following her most recent discharge after being on held for being a possible contributing factor to her symptoms. - CBC without leukocytosis, no gross electrolyte abnormalities with exception of magnesium 1.5 - CBC am - Lactate 4.2, 2.4 on repeat after 2L NSS - hemodynamically stable and not hypo tensive; received 30 mL/kg fluid bolus (1568 mL) - UA negative for infection - CTAP without acute findings - Stool studies pending - Full liquid diet and advance as tolerates - Zofran prn N/V - Takes loperamide at home - hold until stool studies return; if not infectious, may continue - IVF LR @ 100 mL/hr - Deferred abx at time of admission -- no leukocytosis, no F/V, no CTAP findings - adjust as appropriate #Hypomagnesemia H/o hypomagnesemia; Received 2g mag sulfate IV in ED. - Mg 1.5 - Mg am - MgSO4 2g IV given in ED - Consider adding BID supplementation of magnesium given recurrent hypomag #T2DM H/o DMT2; Home regimen of metformin which is currently on hold, canagliflozin, sitagliptin, lantus 16U am, and novolog 6U BID - Most recent A1C 01/2025 @ 7.9%; Admitting glucose 208 - Hold po medications and insulin for complete glycemic control while inpatient - SSI with target BSG range 110-140mg/dL, CF 45, carb ratio 15 - Lantus 10U am - BSG ACHS - Pharm glycemic management consult placed, appreciate assistance - Adjust regimen as needed #Movement disorder/B12 deficiency- Continue supplements #Psych- Mirtazapine, Rexulti, Trintellix - continue #H/o CVA- ASA + Atorvastatin - continue Dispo: Obs, med/sx VTE Prophylaxis: Lovenox This document was dictated utilizing [employer]. Please excuse any grammatical errors that may be secondary to use of this software. Admission and Anticipated Discharge Date Admission Date: January 23, 2025 Subjective Follow-up of patient admitted with diarrhea so far workup with GI PCR has been negative patient is still complaining of significant diarrhea I will start loperamide Physical Exam Physical Exam: General: No acute distress Skin: Warm and dry Head: Normocephalic, atraumatic Eyes: PERRL, conjunctivae clear, sclera non-icteric ENT: External ear and ear canal without swelling; nose atraumatic; fair dentition, tongue normal appearance, pharynx normal Neck: Supple, no LAD Cardio: Tachycardic, regular rhythm, no M/G/R, S1 and S2 normal Resp: No respiratory distress, Lungs CTA in all lobes bilaterally, no wheezes, rales, or rhonchi Abdomen: Soft, symmetric, generalized tenderness to palpation across abdomen, mild and no peritoneal signs; No masses or hepatosplenomegaly; Bowel sounds normoactive MSK: No deformities; pulses palpable and equal; no edema. Neuro: Awake, alert; Sensation intact bilaterally; CN grossly intact Psych: Abnormal movements consistent with her movement disorder, appropriate mood and affect; good judgement and insight. Results & Data Results & Data Vital Signs (Past 12 Hours) Vital Signs Temp Pulse Pulse Pulse Resp BP BP 01/24/25 07:39 36.8 C 83 16 124/80 01/24/25 07:25 01/24/25 00:00 01/24/25 00:00 36.6 C 95 H 16 149/89 H 01/23/25 23:35 88 18 146/74 H Pulse Ox O2 Del Method 01/24/25 07:39 95 Room Air 01/24/25 07:25 Room Air 01/24/25 00:00 Room Air 01/24/25 00:00 96 Room Air 01/23/25 23:35 98 Room Air PG Care Time/CCT Total # of Minutes Spent Total Time Spent with Patient: Total time spent is greater than 50% in coordination of care (as documented) at patient's floor/unit and/or counseling patient: Coding Level of Care Code 16267 SUB INP/OBS CARE 2/35MIN Diagnoses Abdominal pain R10.9 Hypomagnesemia E83.42 T2DM (type 2 diabetes mellitus) E11.9
--- NOTE | 2025-01-24 14:20 | Pharmacy Report ---
Pharmacy Glycemic Short Note 2 - Date of Service January 24, 2025 - Glycemic Short BSG Results (Last 24 hours): 01/23/25 01/24/25 01/24/25 17:54 01:15 02:14 Glucose 208 H POC Glucose 105 H 90 01/24/25 01/24/25 01/24/25 05:44 07:33 11:19 Glucose 95 POC Glucose 121 H 119 H OUTPATIENT ANTIDIABETIC REGIMEN: * Invokana 100 mg qAM, metformin 1000 mg BID, Januvia 100 mg qAM, Novolog 6 units BID, Lantus 16 units qAM * A1c 7.9% 01/18/25 ASSESSMENT: * Admitted with abdominal pain/diarrhea. BSGs have been well controlled today 90-121-119 mg/dL today * Will continue with current insulin parameters PLAN FOR INPATIENT GLYCEMIC CONTROL: * Hold outpatient oral diabetes medications * Basal insulin * Lantus 10 units sq QAM * Bolus insulin * NovoLog per scale ACHS or Q6hrs while NPO * Goal Range: Low 110 mg/dL - High 140 mg/dL * Correction Factor: 30 mg/dL/unit * Nutritional / Prandial insulin per carb ratio of 1 unit per 10 grams CHO consumed
[2025-01-24] MEDS ORDERED: LOPERAMIDE HCL 2 MG CAP PO PRN (18:49)
[2025-01-24 19:51] VITALS: RESP 16
[2025-01-24] MEDS: MELATONIN 3 MG TAB PO PRN (21:20)
[2025-01-24] MEDS: ATORVASTATIN 40 MG TAB PO SCH (21:21)
[2025-01-24] MEDS: VORTIOXETINE HYDROBROMIDE 20 MG TAB PO SCH (21:21)
[2025-01-24] MEDS: MIRTAZAPINE TAB 15 MG TAB PO SCH (21:21)
[2025-01-25] MEDS: LANTUS PER UNIT CHARGE SQ SCH (08:26)
[2025-01-25 13:36] LABS: Basophils # (auto) 0.03 K/uL (0.00-0.20); Basophils % (auto) 0.4 %; Eosinophils # (auto) 0.16 K/uL (0.00-0.50); Eosinophils % (auto) 2.2 %; Hematocrit (blood only) 37.1 % (37.0-47.0); Immature Granulocytes # (auto) 0.06 K/uL (0.01-0.20); Immature Granulocytes % (auto) 0.8 %; Lymphocytes # (auto) 2.09 K/uL (1.20-3.40); Lymphocytes % (auto) 28.8 %; Mean Corpuscular Hemoglobin 28.4 pg (25.0-34.0); Mean Corpuscular Hgb Conc 32.3 g/dL (32.0-36.0); Mean Corpuscular Volume 87.9 fL (80.0-100.0); Mean Platelet Volume 9.4 fL (9.4-12.4); Monocytes # (auto) 0.46 K/uL (0.11-0.59); Monocytes % (auto) 6.3 %; Neutrophils # (auto) 4.46 K/uL (1.40-6.50); Neutrophils % (auto) 61.5 %; Platelet Count 290 K/uL (130-400); RDW Coefficient of Variation 14.3 % (11.5-14.5); RDW Standard Deviation 45.3 fL (36.4-46.3); Red Blood Count 4.22 M/uL (4.20-5.40); White Blood Count 7.26 K/ul (4.8-10.8)
[2025-01-25 13:54] LABS: Albumin Globulin Ratio 1.1 (0.9-2); Albumin Level 3.4 gm/dl (3.4-5.0); BUN Creatinine Ratio 9.1 (10-20); Bilirubin,Total 0.3 mg/dl (0.2-1.0); Calcium 9.7 mg/dl (8.6-10.3); Creatinine Clr Calc Pharmacy 70.7 ml/min; Potassium 4.2 mmol/L (3.5-5.1); Total Protein 6.4 gm/dl (6.0-8.3)
[2025-01-25 15:12] VITALS: BP 142/85; PULSE 70; TEMP 97.9; O2SAT 96
--- NOTE | 2025-01-25 18:56 | Discharge Summary ---
Date of Service January 25, 2025 Admission HPI Per Admitting Provider 69-year-old female PMHx CVA (2021), FTT, GERD, medication noncompliance, poorly controlled T2DM, movement disorder, and hypothyroidism presenting for abdominal pain and diarrhea. Patient states that she feels "rotten" for the past few days. She did restart her metformin since her hospital discharge. Since then, she has been progressively feeling worse and "lousy." States that on the day of arrival, sometime after 1300, she had 3 episodes of very watery stool and abdominal pain. States that she has no current abdominal pain and that earlier it felt like some cramping. She had 3 episodes of loose, watery stools but denies blood or mucus in them. She did not have any nausea or vomiting. No fever or chills. She did have a couple days of constipation prior to this, with her last normal bowel movement being approximately 3 days [employer]. She did not take any laxatives. No recent antibiotic use. No history of C. difficile that she is aware of. She is denying any chest pain, SOB, palpitations, LUTS, numbn ess/tingling, fever/chills, weakness, syncope, or LOC. No one around her has been sick. She did restart her metformin since her most recent hospital discharge, unable to tell me exactly how many days she has been taking this medication. ED evaluation reveals no leukocytosis, stable H&H; CMP AG 12, glucose 208; lactate 2.4; magnesium 1.5; lipase 41; UA negative for infection; CTAP no significant vascular abnormalities, no acute abnormalities.; Provided with 2L NSS, and mag sulfate IV in ED. Please see Dr. Khan's attestation for adjustments/additions to treatment plan. Admission Exam (Per Admitting) Constitutional General: No acute distress Skin: Warm and dry Head: Normocephalic, atraumatic Eyes: PERRL, conjunctivae clear, sclera non-icteric ENT: External ear and ear canal without swelling; nose atraumatic; fair dentition, tongue normal appearance, pharynx normal Neck: Supple, no LAD Cardio: Tachycardic, regular rhythm, no M/G/R, S1 and S2 normal Resp: No respiratory distress, Lungs CTA in all lobes bilaterally, no wheezes, rales, or rhonchi Abdomen: Soft, symmetric, generalized tenderness to palpation across abdomen, mild and no peritoneal signs; No masses or hepatosplenomegaly; Bowel sounds normoactive MSK: No deformities; pulses palpable and equal; no edema. Neuro: Awake, alert; Sensation intact bilaterally; CN grossly intact Psych: Abnormal movements consistent with her movement disorder, appropriate mood and affect; good judgement and insight. Discharge Data Consultations 01/23/25 21:46 ED Decision to Admit Stat Hospital Course (1) Abdominal pain: (2) Hypomagnesemia: (3) T2DM (type 2 diabetes mellitus): Plan 69-year-old female PMHx CVA (2021), FTT, GERD, medication noncompliance, poorly controlled T2DM, movement disorder, and hypothyroidism presenting for abdominal pain and diarrhea. ED evaluation reveals no leukocytosis, stable H&H; CMP AG 12, glucose 208; lactate 2.4; magnesium 1.5; lipase 41; UA negative for infection; CTAP no significant vascular abnormalities, no acute abnormalities.; Provided with 2L NSS, and mag sulfate IV in ED. #Abdominal pain Patient with recent hospitalization 01/17/2025 until 01/18/2025 for acute gastroenteritis. Presenting now with abdominal pain and profuse diarrhea. Metformin was restarted following her most recent discharge after being on held for being a possible contributing factor to her symptoms. - CBC without leukocytosis, no gross electrolyte abnormalities with exception of magnesium 1.5 - CBC am - Lactate 4.2, 2.4 on repeat after 2L NSS - hemodynamically stable and not hypotensive; received 30 mL/kg fluid bolus (1568 mL) - UA negative for infection - CTAP without acute findings - Stool studies negative for any infectious etiology - No elevated white count patient was taking metformin 75% of patients taking metformin experienced diarrhea according to [facility] studies advised patient to stop taking metformin #Hypomagnesemia H/o hypomagnesemia; Received 2g mag sulfate IV in ED. - Mg 1.5 - Mg am - MgSO4 2g IV given in ED - Will prescribe magnesium supplementation #T2DM H/o DMT2; Home regimen of metformin which is currently on hold, canagliflozin, sitagliptin, lantus 16U am, and novolog 6U BID - Most recent A1C 01/2025 @ 7.9%; Admitting glucose 208 - Hold po medications and insulin for complete glycemic control while inpatient - SSI with target BSG range 110-140mg/dL, CF 45, carb ratio 15 - Lantus 10U am - BSG ACHS - Pharm glycemic management consult placed, appreciate assistance - Adjust regimen as needed #Movement disorder/B12 deficiency- Continue supplements #Psych- Mirtazapine, Rexulti, Trintellix - continue #H/o CVA- ASA + Atorvastatin - continue Dispo: Patient is being discharged home with advised to hold metformin and avoid drinking sodas which can cause osmotic diarrhea This document was dictated utilizing [employer]. Please excuse any grammatical errors that may be secondary to use of this software. Coding Level of Care Code 08845 INP/OBS DISCH >30 MIN Diagnoses Abdominal pain R10.9 Hypomagnesemia E83.42 T2DM (type 2 diabetes mellitus) E11.9
--- NOTE | 2025-01-26 15:01 | Electrocardiogram Report ---
Test Reason : Blood Pressure : */* mmHG Vent. Rate : 113 BPM Atrial Rate : 113 BPM P-R Int : 152 ms QRS Dur : 74 ms QT Int : 338 ms P-R-T Axes : 41 40 49 degrees QTcB Int : 463 ms Sinus tachycardia Cannot rule out Anterior infarct , age undetermined Abnormal ECG When compared with ECG of 17-Jan-2025 16:12, Nonspecific T wave abnormality now evident in Lateral leads Confirmed by Dusty Muniz ([id number]) on 01/26/2025 3:00:33 PM Referred By: REFERRED SELF Confirmed By: Dusty Muniz
--- NOTE | 2025-01-26 16:00 | Electrocardiogram Report ---
Test Reason : Blood Pressure : */* mmHG Vent. Rate : 87 BPM Atrial Rate : 87 BPM P-R Int : 136 ms QRS Dur : 74 ms QT Int : 354 ms P-R-T Axes : 27 11 16 degrees QTcB Int : 425 ms Poor data quality, interpretation may be adversely affected Normal sinus rhythm Normal ECG When compared with ECG of 23-Jan-2025 17:56, (unconfirmed) Nonspecific T wave abnormality no longer evident in Lateral leads Confirmed by Dusty Muniz ([id number]) on 01/26/2025 4:00:38 PM Referred By: REFERRED SELF Confirmed By: Dusty Muniz
== END 2025-01-25 20:03 | disposition home or self-care (01) ==
LOC: 3E 17:26 → ED 17:26 → SUATTDRO 22:35 → 3E 23:35